=== PATIENT | male | born 1950 | race Caucasian/White ===

== ENCOUNTER 2018-11-01 10:15 | Outpatient (RCR) | payer OTHER, SELFPAY ==
--- NOTE | 2018-08-03 15:57 | PT.OIE ---
Current Diagnoses Other intervertebral disc displacement, lumbar region (08/03/18) Lumbago with sciatica, left side (08/03/18) Difficulty in walking, not elsewhere classified (08/03/18) Weakness (08/03/18) Provider Visit Care Team Role Provider Type AGUILA Zaldivar Attending Provider Non-Staff Primary Care Provider Specialty: Medical Address: [address] [place] [address], [address], [place], [address] Email: Physical Therapy Initial Evaluation PT-OP-A Visit Information Start: 08/03/18 08:10 Freq: Status: Active Protocol: Document 08/03/18 11:16 [facility]AK (Rec: 08/03/18 15:56 [facility]AK [id number]) Out-Patient Physical Therapy Visit Information Visit Information Visit Type Initial Evaluation Visit Start Time 11:16 Visit Stop Time 11:56 Total Visit Minutes 40 Visit Number 1 Number of WAREHOUSE CONSULTANT Visits 0 Evaluation Information Evaluation Date 08/03/18 Precautions Precautions cardiac PT-OP-B Current Condition Start: 08/03/18 08:10 Freq: Status: Active Protocol: Document 08/03/18 11:16 SAK (Rec: 08/03/18 11:58 [facility]AK [id number]) Current Condition History of Current Condition Onset Date 3 months Current Complaints LBP with radicular symptoms renato left greater than right History of Current Condition Reports function-limiting, worsening burning pain into left hip and left leg and numbness bilateral feet. Has fallen due to left leg giving way. Prior PT after all surgeries, but pain persists, worst in left leg. Now referred for aquatic PT. Prior Treatments and Tests October 2016 reattached all quad muscles back to right knee.(fell due to back pain, states a TKA has been recommended). History right LE cellulitis 05/11. January 2017 multilevel lumbar decompression L2-3, L3-4, and L4-5 stenosis 2018 tore rotator cuff left had surgical repair Treatment Goals Patient/Caregiver Goals Decrease pain, improve activity tolerance Prior Functional Status Baseline Function- ADL's Independent Baseline Function- Mobility Independent Baseline Function- Gait indep, no gait, Personal Factors Other Personal Factors That May Effect obesity Therapy/Recovery Cardiac history with angina, HTN PT-OP-C Subjective Start: 08/03/18 08:10 Freq: Status: Active Protocol: Document 08/03/18 11:16 [facility] (Rec: 08/03/18 15:56 [facility] [id number]) Patient Questionnaires Oswestry Low Back Index Oswestry Score 57 Oswestry Impairment 40 to 59% Impaired (Score 40- 59) OP-PT Pain Assessment Pain Assessment Grid Paper Pain Assessment Grid Completed Yes Location lumbar spine, left hip, lateral left LE Intensity 7 Scale Used Numeric (1 - 10) Description Aching Burning Pressure Sharp Spasm PT-OP-G Mobility & Gait Start: 08/03/18 08:10 Freq: Status: Active Protocol: Document 08/03/18 11:16 [facility] (Rec: 08/03/18 15:56 [facility] [id number]) OP Mobility Evaluation Transfers Sit to Stand painful Car Transfers painful Floor Transfers painful Functional Movements Lifting and Carrying painful Squats painful Running Assessment unable OP Gait Assessment Gait Gait Assistance Required: Independent Assistive Devices Assistive Device None Gait Deviations General Gait Pattern Antalgic Factors Limiting Gait Function Factors Limiting Gait Function Decreased Sensation Limited Range of Motion Pain PT-OP-H Neuro Start: 08/03/18 08:10 Freq: Status: Active Protocol: Document 08/03/18 11:16 [facility] (Rec: 08/03/18 15:56 [facility] [id number]) Sensation Evaluation Gross Sensation Gross Sensation Left LE Impaired Sensation Description Paresthesia Dermatome Impairments L4 L5 S1 Deep Tendon Reflex & Clonus Assessment Deep Tendon Reflex Bilateral Achilles Deep Tendon Reflex 0 Absent Bilateral Patellar Deep Tendon Reflex 0 Absent PT-OP-J Posture/Palpation/Skin Start: 08/03/18 08:10 Freq: Status: Active Protocol: Document 08/03/18 11:16 [facility] (Rec: 08/03/18 15:56 [facility] [id number]) Posture Evaluation Comments Posture Comments forward head, increased thoracic kyphosis and lumbar lordosis. Palpation Assessment Location piriformis Palpation Location bilateral Palpation Findings Soft Tissue Tightness Tenderness PT-OP-K Range of Motion Start: 08/03/18 08:10 Freq: Status: Active Protocol: Document 08/03/18 11:16 [facility] (Rec: 08/03/18 15:37 [facility] [id number]) Lumbar Spine Range of Motion Lumbar Spine Active Testing Position Standing Flexion 30 Extension 20 Lateral Flexion Left 30 Lateral Flexion Right 30 ROM Limitations Soft Tissue Tightness Pain Hip Goniometric Range of Motion Hip Measured in Degrees Left Testing Position Supine Flexion w/Knee Flexed 100 Straight Leg Raise 50 Extension 0 Abduction 25 Internal Rotation 10 External Rotation 40 Right Testing Position Supine Flexion w/Knee Flexed 100 Straight Leg Raise 45 Extension 0 Abduction 30 Internal Rotation 20 External Rotation 45 Hip ROM Limitations Hip ROM Limitations Soft Tissue Tightness Pain Knee Goniometric Range of Motion Knee Measured in Degrees Left Knee ROM WFL Yes Right Knee ROM WFL No Patient Position Supine Flexion Active (degrees) 95 Extension Active (degrees) 8 Extension Passive (degrees) 0 Ankle and Foot Goniometric Range of Motion Ankle and Foot Measured in Degrees renato Dorsiflexion with Knee Flexed 5 Dorsiflexion with Knee Extended 0 Plantarflexion 40 Ankle and Foot ROM Limitations ROM Limitations Soft Tissue Tightness PT-OP-L Special Tests Start: 08/03/18 08:10 Freq: Status: Active Protocol: Document 08/03/18 11:16 [facility] (Rec: 08/03/18 15:56 [facility] [id number]) Special Tests Lumbar Spine Special Tests Straight Leg Raise Test Results positive left PT-OP-M Strength Start: 08/03/18 08:10 Freq: Status: Active Protocol: Document 08/03/18 11:16 [facility] (Rec: 08/03/18 15:37 [facility] [id number]) Trunk Strength Trunk Manual Muscle Testing Flexion 3+ Fair+ Extension 3+ Fair+ Core Stabilization poor Hip Strength Hip Manual Muscle Testing Left Flexion (L2) 4- Good- Extension (S1) 3- Fair- Abduction 4- Good- Adduction 4- Good- External Rotation 3+ Fair+ Internal Rotation 4- Good- Right Flexion (L2) 4 Good Extension (S1) 3- Fair- Abduction 4 Good Adduction 4 Good External Rotation 4- Good- Internal Rotation 4- Good- Knee Strength Knee Manual Muscle Testing Left Flexion (S2) 4 Good Extension (L3) 4 Good Right Flexion (S2) 4 Good Extension (L3) 4 Good Ankle/Foot Strength Ankle and Foot Manual Muscle Testing Left Dorsiflexion (L4) 4+ Good+ Plantarflexion (S1) 4+ Good+ Right Dorsiflexion (L4) 4+ Good+ Plantarflexion (S1) 4+ Good+ Toe Strength Toe Manual Muscle Testing Left Great Toe Flexion 4- Good- Extension 4- Good- Right Great Toe Flexion 4+ Good+ Extension 4+ Good+ PT-OP-T Assessment and Plan Start: 08/03/18 08:10 Freq: Status: Active Protocol: Document 08/03/18 11:16 [facility] (Rec: 08/03/18 15:56 [facility] [id number]) Physical Therapy Assessment Rehab Potential Rehabilitation Potential Good Evaluation Complexity Number of Personal Factors/Comorbidities 3 or More Number of Body Systems Impaired 4 or More Clinical Presentation at Evaluation Evolving Impairments Impairments Activity Tolerance Gait Pain Strength Goals knowledge deficit Impairment no aquatic exercise program Short Term Goal (STG) Instruct patient in aquatic ex program; patient able to tolerate 45 min aquatic exercise without increase in pain STG Duration 09/14/18 Care Home Goal (LTG) Patient independent with aquatic exercise program for long-term pain management and fitness LTG Duration 11/01/18 Activity tolerance Impairment Oswestry disability index score 57% Short Term Goal (STG) Decrease Oswestry score to no greater than 45% STG Duration 09/14/18 Cargo Operations Agent Goal (LTG) Decrease Oswestry score to no greater than 30% LTG Duration 11/01/18 antalgic gait Impairment antalgic gait Short Term Goal (STG) Patient to demonstrate 50% decrease in limp STG Duration 09/14/18 Cargo Operations Agent Goal (LTG) Patient able to ambulate without significant limp LTG Duration 11/01/18 weakness Impairment decrease strength in trunk and LE's Short Term Goal (STG) increase strength by 1/2 grade throughout STG Duration 09/14/18 Cargo Operations Agent Goal (LTG) Increase strength to at least 4+/5 throughout pain Impairment pain lumbar spine, LE's left greater than right Short Term Goal (STG) decrease pain by 25% STG Duration 09/14/18 Cargo Operations Agent Goal (LTG) Decrease pain by at least 50% LTG Duration 11/01/18 Assessment Summary Assessment Patient presents with function -limiting pain and radicular symptoms in his lumbar spine and LE's left greater than right with signs and symptoms consistent with nerve root involvement. Patient has not done well with traditional PT, is now referred for aquatic PT. He has muscle imbalances of weakness and decreased flexibility throughout his trunk and LE's which are contributory. Obesity contributory as well. Feel aquatic PT would be very beneficial for this patient to allow him to work and strength, flexibility, core stabilization in bouyancy- supported environment for decreased joint compression and stress, and increased ease of movement. Precaution is cardiac history; will monitor and progress activity gradually. Physical Therapy Plan Frequency and Duration Frequency of Treatment 2x/Week Duration of Treatment 3 months Plan of Care Start Date 08/03/18 Plan of Care End Date 11/01/18 Therapeutic Interventions Therapeutic Interventions Aquatic Therapy Patient/Caregiver Education Next Visit Focus/Plan Next Note Type Treatment Note Next Visit Plan Initiate aquatic therapy
--- NOTE | 2018-08-28 14:53 | PT.OTN ---
Current Diagnoses Other intervertebral disc displacement, lumbar region (08/28/18) Physical Therapy Treatment Note PT-OP-A Visit Information Start: 08/03/18 08:10 Freq: Status: Active Protocol: Document 08/28/18 10:15 [facility] (Rec: 08/28/18 14:53 [facility] [id number]) Out-Patient Physical Therapy Visit Information Visit Information Visit Type Aquatic Treatment Note Visit Start Time 10:15 Visit Stop Time 11:00 Total Visit Minutes 45 Visit Number 2 Number of DEGREE CLERK Visits 0 Evaluation Information Evaluation Date 08/03/18 Precautions Precautions cardiac PT-OP-B Current Condition Start: 08/03/18 08:10 Freq: Status: Active Protocol: Document 08/03/18 11:16 [facility] (Rec: 08/03/18 11:58 [facility]AK [id number]) Current Condition History of Current Condition Onset Date 3 months Current Complaints LBP with radicular symptoms renato left greater than right History of Current Condition Reports function-limiting, worsening burning pain into left hip and left leg and numbness bilateral feet. Has fallen due to left leg giving way. Prior PT after all surgeries, but pain persists, worst in left leg. Now referred for aquatic PT. Prior Treatments and Tests October 2016 reattached all quad muscles back to right knee.(fell due to back pain, states a TKA has been recommended). History right LE cellulitis 05/11. January 2017 multilevel lumbar decompression L2-3, L3-4, and L4-5 stenosis 2018 tore rotator cuff left had surgical repair Treatment Goals Patient/Caregiver Goals Decrease pain, improve activity tolerance Prior Functional Status Baseline Function- ADL's Independent Baseline Function- Mobility Independent Baseline Function- Gait indep, no gait, Personal Factors Other Personal Factors That May Effect obesity Therapy/Recovery Cardiac history with angina, HTN PT-OP-C Subjective Start: 08/03/18 08:10 Freq: Status: Active Protocol: Document 08/28/18 10:15 [facility] (Rec: 08/28/18 14:53 [facility] [id number]) OP-PT Subjective Patient Comments Patient Comments Glad to be starting aquatic PT today. PT-OP-G Mobility & Gait Start: 08/03/18 08:10 Freq: Status: Active Protocol: Document 08/03/18 11:16 [facility] (Rec: 08/03/18 15:56 [facility] [id number]) OP Mobility Evaluation Transfers Sit to Stand painful Car Transfers painful Floor Transfers painful Functional Movements Lifting and Carrying painful Squats painful Running Assessment unable OP Gait Assessment Gait Gait Assistance Required: Independent Assistive Devices Assistive Device None Gait Deviations General Gait Pattern Antalgic Factors Limiting Gait Function Factors Limiting Gait Function Decreased Sensation Limited Range of Motion Pain PT-OP-H Neuro Start: 08/03/18 08:10 Freq: Status: Active Protocol: Document 08/03/18 11:16 [facility] (Rec: 08/03/18 15:56 [facility] [id number]) Sensation Evaluation Gross Sensation Gross Sensation Left LE Impaired Sensation Description Paresthesia Dermatome Impairments L4 L5 S1 Deep Tendon Reflex & Clonus Assessment Deep Tendon Reflex Bilateral Achilles Deep Tendon Reflex 0 Absent Bilateral Patellar Deep Tendon Reflex 0 Absent PT-OP-J Posture/Palpation/Skin Start: 08/03/18 08:10 Freq: Status: Active Protocol: Document 08/03/18 11:16 [facility] (Rec: 08/03/18 15:56 [facility] [id number]) Posture Evaluation Comments Posture Comments forward head, increased thoracic kyphosis and lumbar lordosis. Palpation Assessment Location piriformis Palpation Location bilateral Palpation Findings Soft Tissue Tightness Tenderness PT-OP-K Range of Motion Start: 08/03/18 08:10 Freq: Status: Active Protocol: Document 08/03/18 11:16 [facility] (Rec: 08/03/18 15:37 [facility] [id number]) Lumbar Spine Range of Motion Lumbar Spine Active Testing Position Standing Flexion 30 Extension 20 Lateral Flexion Left 30 Lateral Flexion Right 30 ROM Limitations Soft Tissue Tightness Pain Hip Goniometric Range of Motion Hip Measured in Degrees Left Testing Position Supine Flexion w/Knee Flexed 100 Straight Leg Raise 50 Extension 0 Abduction 25 Internal Rotation 10 External Rotation 40 Right Testing Position Supine Flexion w/Knee Flexed 100 Straight Leg Raise 45 Extension 0 Abduction 30 Internal Rotation 20 External Rotation 45 Hip ROM Limitations Hip ROM Limitations Soft Tissue Tightness Pain Knee Goniometric Range of Motion Knee Measured in Degrees Left Knee ROM WFL Yes Right Knee ROM WFL No Patient Position Supine Flexion Active (degrees) 95 Extension Active (degrees) 8 Extension Passive (degrees) 0 Ankle and Foot Goniometric Range of Motion Ankle and Foot Measured in Degrees renato Dorsiflexion with Knee Flexed 5 Dorsiflexion with Knee Extended 0 Plantarflexion 40 Ankle and Foot ROM Limitations ROM Limitations Soft Tissue Tightness PT-OP-L Special Tests Start: 08/03/18 08:10 Freq: Status: Active Protocol: Document 08/03/18 11:16 [facility] (Rec: 08/03/18 15:56 [facility] [id number]) Special Tests Lumbar Spine Special Tests Straight Leg Raise Test Results positive left PT-OP-M Strength Start: 08/03/18 08:10 Freq: Status: Active Protocol: Document 08/03/18 11:16 [facility] (Rec: 08/03/18 15:37 [facility] [id number]) Trunk Strength Trunk Manual Muscle Testing Flexion 3+ Fair+ Extension 3+ Fair+ Core Stabilization poor Hip Strength Hip Manual Muscle Testing Left Flexion (L2) 4- Good- Extension (S1) 3- Fair- Abduction 4- Good- Adduction 4- Good- External Rotation 3+ Fair+ Internal Rotation 4- Good- Right Flexion (L2) 4 Good Extension (S1) 3- Fair- Abduction 4 Good Adduction 4 Good External Rotation 4- Good- Internal Rotation 4- Good- Knee Strength Knee Manual Muscle Testing Left Flexion (S2) 4 Good Extension (L3) 4 Good Right Flexion (S2) 4 Good Extension (L3) 4 Good Ankle/Foot Strength Ankle and Foot Manual Muscle Testing Left Dorsiflexion (L4) 4+ Good+ Plantarflexion (S1) 4+ Good+ Right Dorsiflexion (L4) 4+ Good+ Plantarflexion (S1) 4+ Good+ Toe Strength Toe Manual Muscle Testing Left Great Toe Flexion 4- Good- Extension 4- Good- Right Great Toe Flexion 4+ Good+ Extension 4+ Good+ PT-OP-S Aquatic Treatment Start: 08/03/18 08:10 Freq: Status: Active Protocol: Document 08/28/18 10:15 [facility] (Rec: 08/28/18 14:53 [facility] [id number]) Aquatics Treatment Pool Entry/Exit Pool Entry/Exit Method Stairs Assistance Verbal Cues Water Walking september, straight leg september Water Level Chest Level Level of Assistance Standby Assistance Verbal Cues fwd,bck,side Water Level Chest Level Level of Assistance Standby Assistance Verbal Cues Lower Extremity Exercises squats Water Level Waist Level Reps/Duration 10x hip flex/ext, ab/ad Body Position Standing Water Level Chest Level Reps/Duration 10x ROM, 10x short/quick Lower Extremity Stretches piriformis, hip ER Body Position chair position against wall hamstring, ITB, add Body Position Standing Water Level Chest Level Equipment Small Noodle Upper Extremity Exercises hor ab/ad, flex/ext Water Level Chest Level Reps/Duration 10x renato, 10x unil Comments DLS emphasis Spinal Exercises deep water hang Body Position Standing Water Level [place] Reps/Duration 2 min [place] Activities [place] Activities Bicycle Running Equipment large noodle Duration 12 min PT-OP-T Assessment and Plan Start: 08/03/18 08:10 Freq: Status: Active Protocol: Document 08/28/18 10:15 [facility] (Rec: 08/28/18 14:53 [facility] [id number]) Physical Therapy Assessment Goals knowledge deficit Impairment no aquatic exercise program Short Term Goal (STG) Instruct patient in aquatic ex program; patient able to tolerate 45 min aquatic exercise without increase in pain STG Duration 09/14/18 Shelter Goal (LTG) Patient independent with aquatic exercise program for long-term pain management and fitness LTG Duration 11/01/18 Activity tolerance Impairment Oswestry disability index score 57% Short Term Goal (STG) Decrease Oswestry score to no greater than 45% STG Duration 09/14/18 Stitch Welder Goal (LTG) Decrease Oswestry score to no greater than 30% LTG Duration 11/01/18 antalgic gait Impairment antalgic gait Short Term Goal (STG) Patient to demonstrate 50% decrease in limp STG Duration 09/14/18 Stitch Welder Goal (LTG) Patient able to ambulate without significant limp LTG Duration 11/01/18 weakness Impairment decrease strength in trunk and LE's Short Term Goal (STG) increase strength by 1/2 grade throughout STG Duration 09/14/18 Stitch Welder Goal (LTG) Increase strength to at least 4+/5 throughout pain Impairment pain lumbar spine, LE's left greater than right Short Term Goal (STG) decrease pain by 25% STG Duration 09/14/18 Stitch Welder Goal (LTG) Decrease pain by at least 50% LTG Duration 11/01/18 Assessment Summary Assessment Patient required mod cues for postural alignment and core stabilization with all ex Physical Therapy Plan Frequency and Duration Frequency of Treatment 2x/Week Duration of Treatment 3 months Plan of Care Start Date 08/03/18 Plan of Care End Date 11/01/18 Therapeutic Interventions Therapeutic Interventions Aquatic Therapy Patient/Caregiver Education Next Visit Focus/Plan Next Note Type Treatment Note Next Visit Plan Continue aquatic PT per POC
--- NOTE | 2018-09-04 14:19 | PT.OTN ---
Current Diagnoses Other intervertebral disc displacement, lumbar region (08/28/18) Physical Therapy Treatment Note PT-OP-A Visit Information Start: 08/03/18 08:10 Freq: Status: Active Protocol: Document 09/04/18 11:45 LJ (Rec: 09/04/18 14:19 LJ [email or web address]) Out-Patient Physical Therapy Visit Information Visit Information Visit Type Aquatic Treatment Note Visit Start Time 11:45 Visit Stop Time 12:33 Total Visit Minutes 48 Visit Number 3 Number of COMMERCIAL FISHERMAN Visits 1 Precautions Precautions cardiac PT-OP-B Current Condition Start: 08/03/18 08:10 Freq: Status: Active Protocol: Document 08/03/18 11:16 SAK (Rec: 08/03/18 11:58 SAK [id number]) Current Condition History of Current Condition Onset Date 3 months Current Complaints LBP with radicular symptoms renato left greater than right History of Current Condition Reports function-limiting, worsening burning pain into left hip and left leg and numbness bilateral feet. Has fallen due to left leg giving way. Prior PT after all surgeries, but pain persists, worst in left leg. Now referred for aquatic PT. Prior Treatments and Tests October 2016 reattached all quad muscles back to right knee.(fell due to back pain, states a TKA has been recommended). History right LE cellulitis 05/11. January 2017 multilevel lumbar decompression L2-3, L3-4, and L4-5 stenosis 2018 tore rotator cuff left had surgical repair Treatment Goals Patient/Caregiver Goals Decrease pain, improve activity tolerance Prior Functional Status Baseline Function- ADL's Independent Baseline Function- Mobility Independent Baseline Function- Gait indep, no gait, Personal Factors Other Personal Factors That May Effect obesity Therapy/Recovery Cardiac history with angina, HTN PT-OP-C Subjective Start: 08/03/18 08:10 Freq: Status: Active Protocol: Document 09/04/18 11:45 LJ (Rec: 09/04/18 14:19 LJ [email or web address]) OP-PT Subjective Patient Comments Patient Comments Pt arrived 5 min early and began vigorous marching exercise on his own. States his LEs feel weak today. Not certain why. Can't tell if it' s muscle soreness or fatigue. PT-OP-G Mobility & Gait Start: 08/03/18 08:10 Freq: Status: Active Protocol: Document 08/03/18 11:16 SAK (Rec: 08/03/18 15:56 [facility] [id number]) OP Mobility Evaluation Transfers Sit to Stand painful Car Transfers painful Floor Transfers painful Functional Movements Lifting and Carrying painful Squats painful Running Assessment unable OP Gait Assessment Gait Gait Assistance Required: Independent Assistive Devices Assistive Device None Gait Deviations General Gait Pattern Antalgic Factors Limiting Gait Function Factors Limiting Gait Function Decreased Sensation Limited Range of Motion Pain PT-OP-H Neuro Start: 08/03/18 08:10 Freq: Status: Active Protocol: Document 08/03/18 11:16 [facility] (Rec: 08/03/18 15:56 [facility] [id number]) Sensation Evaluation Gross Sensation Gross Sensation Left LE Impaired Sensation Description Paresthesia Dermatome Impairments L4 L5 S1 Deep Tendon Reflex & Clonus Assessment Deep Tendon Reflex Bilateral Achilles Deep Tendon Reflex 0 Absent Bilateral Patellar Deep Tendon Reflex 0 Absent PT-OP-J Posture/Palpation/Skin Start: 08/03/18 08:10 Freq: Status: Active Protocol: Document 08/03/18 11:16 [facility] (Rec: 08/03/18 15:56 [facility] [id number]) Posture Evaluation Comments Posture Comments forward head, increased thoracic kyphosis and lumbar lordosis. Palpation Assessment Location piriformis Palpation Location bilateral Palpation Findings Soft Tissue Tightness Tenderness PT-OP-K Range of Motion Start: 08/03/18 08:10 Freq: Status: Active Protocol: Document 08/03/18 11:16 [facility] (Rec: 08/03/18 15:37 [facility] [id number]) Lumbar Spine Range of Motion Lumbar Spine Active Testing Position Standing Flexion 30 Extension 20 Lateral Flexion Left 30 Lateral Flexion Right 30 ROM Limitations Soft Tissue Tightness Pain Hip Goniometric Range of Motion Hip Measured in Degrees Left Testing Position Supine Flexion w/Knee Flexed 100 Straight Leg Raise 50 Extension 0 Abduction 25 Internal Rotation 10 External Rotation 40 Right Testing Position Supine Flexion w/Knee Flexed 100 Straight Leg Raise 45 Extension 0 Abduction 30 Internal Rotation 20 External Rotation 45 Hip ROM Limitations Hip ROM Limitations Soft Tissue Tightness Pain Knee Goniometric Range of Motion Knee Measured in Degrees Left Knee ROM WFL Yes Right Knee ROM WFL No Patient Position Supine Flexion Active (degrees) 95 Extension Active (degrees) 8 Extension Passive (degrees) 0 Ankle and Foot Goniometric Range of Motion Ankle and Foot Measured in Degrees renato Dorsiflexion with Knee Flexed 5 Dorsiflexion with Knee Extended 0 Plantarflexion 40 Ankle and Foot ROM Limitations ROM Limitations Soft Tissue Tightness PT-OP-L Special Tests Start: 08/03/18 08:10 Freq: Status: Active Protocol: Document 08/03/18 11:16 SAK (Rec: 08/03/18 15:56 SAK [id number]) Special Tests Lumbar Spine Special Tests Straight Leg Raise Test Results positive left PT-OP-M Strength Start: 08/03/18 08:10 Freq: Status: Active Protocol: Document 08/03/18 11:16 SAK (Rec: 08/03/18 15:37 SAK [id number]) Trunk Strength Trunk Manual Muscle Testing Flexion 3+ Fair+ Extension 3+ Fair+ Core Stabilization poor Hip Strength Hip Manual Muscle Testing Left Flexion (L2) 4- Good- Extension (S1) 3- Fair- Abduction 4- Good- Adduction 4- Good- External Rotation 3+ Fair+ Internal Rotation 4- Good- Right Flexion (L2) 4 Good Extension (S1) 3- Fair- Abduction 4 Good Adduction 4 Good External Rotation 4- Good- Internal Rotation 4- Good- Knee Strength Knee Manual Muscle Testing Left Flexion (S2) 4 Good Extension (L3) 4 Good Right Flexion (S2) 4 Good Extension (L3) 4 Good Ankle/Foot Strength Ankle and Foot Manual Muscle Testing Left Dorsiflexion (L4) 4+ Good+ Plantarflexion (S1) 4+ Good+ Right Dorsiflexion (L4) 4+ Good+ Plantarflexion (S1) 4+ Good+ Toe Strength Toe Manual Muscle Testing Left Great Toe Flexion 4- Good- Extension 4- Good- Right Great Toe Flexion 4+ Good+ Extension 4+ Good+ PT-OP-S Aquatic Treatment Start: 08/03/18 08:10 Freq: Status: Active Protocol: Document 09/04/18 11:45 LJ (Rec: 09/04/18 14:19 LJ [email or web address]) Aquatics Treatment Pool Entry/Exit Pool Entry/Exit Method Stairs Assistance Verbal Cues Water Walking stairs all directions Water Level Waist Level Level of Assistance Standby Assistance Verbal Cues Comments 6 boxes lunge walking Water Level Waist Level Level of Assistance Standby Assistance Verbal Cues march, straight leg september Water Level Chest Level Level of Assistance Standby Assistance Verbal Cues fwd,bck,side Water Level Chest Level Level of Assistance Standby Assistance Verbal Cues Lower Extremity Exercises CC,CCW Body Position Standing Water Level Chest Level Reps/Duration 2 x 10 circles bilat Comments cues for core stab squats Water Level Waist Level Reps/Duration 10x Comments VC for core stab and muscle sequencing hip flex/ext, ab/ad Body Position Standing Water Level Chest Level Reps/Duration 15x ROM x 2 sets Lower Extremity Stretches HC Reps/Duration standing at wall hamstring, ITB, add Body Position Standing Water Level Chest Level Equipment Small Noodle Upper Extremity Exercises lat pull down, IR/ER Body Position Standing Water Level Chest Level Equipment UE paddles Comments cues for core stab hor ab/ad, flex/ext Water Level Chest Level Equipment UE paddles Reps/Duration 10x renato, Comments DLS emphasis Upper Extremity Stretches walking w/paddles Reps/Duration 30 meters Comments cues for shoulder stab [place] Activities [place] Activities Bicycle Running Equipment XL belt Duration 10 min PT-OP-T Assessment and Plan Start: 08/03/18 08:10 Freq: Status: Active Protocol: Document 09/04/18 11:45 JAMIN (Rec: 09/04/18 14:19 JAMIN [email or web address]) Physical Therapy Assessment Rehab Potential Rehabilitation Potential Good Evaluation Complexity Number of Personal Factors/Comorbidities 3 or More Number of Body Systems Impaired 4 or More Clinical Presentation at Evaluation Evolving Impairments Impairments Activity Tolerance Gait Pain Strength Goals knowledge deficit Impairment no aquatic exercise program Short Term Goal (STG) Instruct patient in aquatic ex program; patient able to tolerate 45 min aquatic exercise without increase in pain STG Duration 09/14/18 Fpc Goal (LTG) Patient independent with aquatic exercise program for long-term pain management and fitness LTG Duration 11/01/18 Activity tolerance Impairment Oswestry disability index score 57% Short Term Goal (STG) Decrease Oswestry score to no greater than 45% STG Duration 09/14/18 Fpc Goal (LTG) Decrease Oswestry score to no greater than 30% LTG Duration 11/01/18 antalgic gait Impairment antalgic gait Short Term Goal (STG) Patient to demonstrate 50% decrease in limp STG Duration 09/14/18 Boil Off Worker Goal (LTG) Patient able to ambulate without significant limp LTG Duration 11/01/18 weakness Impairment decrease strength in trunk and LE's Short Term Goal (STG) increase strength by 1/2 grade throughout STG Duration 09/14/18 Fpc Goal (LTG) Increase strength to at least 4+/5 throughout pain Impairment pain lumbar spine, LE's left greater than right Short Term Goal (STG) decrease pain by 25% STG Duration 09/14/18 Fpc Goal (LTG) Decrease pain by at least 50% LTG Duration 11/01/18 Assessment Summary Assessment Pt requires cueing for core stabilization and postural alignment for most exercises. Cueing for glute activation helpful in stair climbing. Pt requires cueing for coordination of LE and UE exercises and tends to lose form easily. Pt with increased respiratory rate with low intensity deep water exercises . Pt slow climbing stairs when finished with aquatic exercise. Physical Therapy Plan Frequency and Duration Frequency of Treatment 2x/Week Duration of Treatment 3 months Plan of Care Start Date 08/03/18 Plan of Care End Date 11/01/18 Therapeutic Interventions Therapeutic Interventions Aquatic Therapy Patient/Caregiver Education Next Visit Focus/Plan Next Note Type Treatment Note Next Visit Plan Continue aquatic PT per POC. Incorporate core muscle activation prior to LE or UE exercises.
--- NOTE | 2018-09-08 15:34 | PT.OTN ---
Current Diagnoses Other intervertebral disc displacement, lumbar region (09/04/18) Physical Therapy Treatment Note PT-OP-A Visit Information Start: 08/03/18 08:10 Freq: Status: Active Protocol: Document 09/08/18 11:45 LJ (Rec: 09/08/18 15:34 LJ [email or web address]) Out-Patient Physical Therapy Visit Information Visit Information Visit Type Aquatic Treatment Note Visit Start Time 11:45 Visit Stop Time 12:30 Total Visit Minutes 45 Visit Number 4 Number of RAINBOW TROUT FARM MANAGER Visits 2 Evaluation Information Evaluation Date 08/03/18 Precautions Precautions cardiac PT-OP-B Current Condition Start: 08/03/18 08:10 Freq: Status: Active Protocol: Document 08/03/18 11:16 SAK (Rec: 08/03/18 11:58 SAK [id number]) Current Condition History of Current Condition Onset Date 3 months Current Complaints LBP with radicular symptoms renato left greater than right History of Current Condition Reports function-limiting, worsening burning pain into left hip and left leg and numbness bilateral feet. Has fallen due to left leg giving way. Prior PT after all surgeries, but pain persists, worst in left leg. Now referred for aquatic PT. Prior Treatments and Tests October 2016 reattached all quad muscles back to right knee.(fell due to back pain, states a TKA has been recommended). History right LE cellulitis 05/11. January 2017 multilevel lumbar decompression L2-3, L3-4, and L4-5 stenosis 2018 tore rotator cuff left had surgical repair Treatment Goals Patient/Caregiver Goals Decrease pain, improve activity tolerance Prior Functional Status Baseline Function- ADL's Independent Baseline Function- Mobility Independent Baseline Function- Gait indep, no gait, Personal Factors Other Personal Factors That May Effect obesity Therapy/Recovery Cardiac history with angina, HTN PT-OP-C Subjective Start: 08/03/18 08:10 Freq: Status: Active Protocol: Document 09/08/18 11:45 LJ (Rec: 09/08/18 15:34 LJ [email or web address]) OP-PT Subjective Patient Comments Patient Comments Pt arrived 10 min early and began water walking. No new complaints other than HS and gaastrocs feeling very tight. PT-OP-G Mobility & Gait Start: 08/03/18 08:10 Freq: Status: Active Protocol: Document 08/03/18 11:16 SAK (Rec: 08/03/18 15:56 SAK [id number]) OP Mobility Evaluation Transfers Sit to Stand painful Car Transfers painful Floor Transfers painful Functional Movements Lifting and Carrying painful Squats painful Running Assessment unable OP Gait Assessment Gait Gait Assistance Required: Independent Assistive Devices Assistive Device None Gait Deviations General Gait Pattern Antalgic Factors Limiting Gait Function Factors Limiting Gait Function Decreased Sensation Limited Range of Motion Pain PT-OP-H Neuro Start: 08/03/18 08:10 Freq: Status: Active Protocol: Document 08/03/18 11:16 SAK (Rec: 08/03/18 15:56 [facility] [id number]) Sensation Evaluation Gross Sensation Gross Sensation Left LE Impaired Sensation Description Paresthesia Dermatome Impairments L4 L5 S1 Deep Tendon Reflex & Clonus Assessment Deep Tendon Reflex Bilateral Achilles Deep Tendon Reflex 0 Absent Bilateral Patellar Deep Tendon Reflex 0 Absent PT-OP-J Posture/Palpation/Skin Start: 08/03/18 08:10 Freq: Status: Active Protocol: Document 08/03/18 11:16 [facility] (Rec: 08/03/18 15:56 [facility] [id number]) Posture Evaluation Comments Posture Comments forward head, increased thoracic kyphosis and lumbar lordosis. Palpation Assessment Location piriformis Palpation Location bilateral Palpation Findings Soft Tissue Tightness Tenderness PT-OP-K Range of Motion Start: 08/03/18 08:10 Freq: Status: Active Protocol: Document 08/03/18 11:16 [facility] (Rec: 08/03/18 15:37 [facility] [id number]) Lumbar Spine Range of Motion Lumbar Spine Active Testing Position Standing Flexion 30 Extension 20 Lateral Flexion Left 30 Lateral Flexion Right 30 ROM Limitations Soft Tissue Tightness Pain Hip Goniometric Range of Motion Hip Measured in Degrees Left Testing Position Supine Flexion w/Knee Flexed 100 Straight Leg Raise 50 Extension 0 Abduction 25 Internal Rotation 10 External Rotation 40 Right Testing Position Supine Flexion w/Knee Flexed 100 Straight Leg Raise 45 Extension 0 Abduction 30 Internal Rotation 20 External Rotation 45 Hip ROM Limitations Hip ROM Limitations Soft Tissue Tightness Pain Knee Goniometric Range of Motion Knee Measured in Degrees Left Knee ROM WFL Yes Right Knee ROM WFL No Patient Position Supine Flexion Active (degrees) 95 Extension Active (degrees) 8 Extension Passive (degrees) 0 Ankle and Foot Goniometric Range of Motion Ankle and Foot Measured in Degrees renato Dorsiflexion with Knee Flexed 5 Dorsiflexion with Knee Extended 0 Plantarflexion 40 Ankle and Foot ROM Limitations ROM Limitations Soft Tissue Tightness PT-OP-L Special Tests Start: 08/03/18 08:10 Freq: Status: Active Protocol: Document 08/03/18 11:16 SAK (Rec: 08/03/18 15:56 SAK [id number]) Special Tests Lumbar Spine Special Tests Straight Leg Raise Test Results positive left PT-OP-M Strength Start: 08/03/18 08:10 Freq: Status: Active Protocol: Document 08/03/18 11:16 SAK (Rec: 08/03/18 15:37 SAK [id number]) Trunk Strength Trunk Manual Muscle Testing Flexion 3+ Fair+ Extension 3+ Fair+ Core Stabilization poor Hip Strength Hip Manual Muscle Testing Left Flexion (L2) 4- Good- Extension (S1) 3- Fair- Abduction 4- Good- Adduction 4- Good- External Rotation 3+ Fair+ Internal Rotation 4- Good- Right Flexion (L2) 4 Good Extension (S1) 3- Fair- Abduction 4 Good Adduction 4 Good External Rotation 4- Good- Internal Rotation 4- Good- Knee Strength Knee Manual Muscle Testing Left Flexion (S2) 4 Good Extension (L3) 4 Good Right Flexion (S2) 4 Good Extension (L3) 4 Good Ankle/Foot Strength Ankle and Foot Manual Muscle Testing Left Dorsiflexion (L4) 4+ Good+ Plantarflexion (S1) 4+ Good+ Right Dorsiflexion (L4) 4+ Good+ Plantarflexion (S1) 4+ Good+ Toe Strength Toe Manual Muscle Testing Left Great Toe Flexion 4- Good- Extension 4- Good- Right Great Toe Flexion 4+ Good+ Extension 4+ Good+ PT-OP-S Aquatic Treatment Start: 08/03/18 08:10 Freq: Status: Active Protocol: Document 09/08/18 11:45 LJ (Rec: 09/08/18 15:34 LJ [email or web address]) Aquatics Treatment Pool Entry/Exit Pool Entry/Exit Method Stairs Assistance Independent Water Walking stairs all directions Water Level Waist Level Level of Assistance Standby Assistance Verbal Cues Comments 6 boxes september, straight leg march Water Level Chest Level Level of Assistance Standby Assistance Verbal Cues fwd,bck,side Water Level Chest Level Level of Assistance Standby Assistance Verbal Cues Lower Extremity Exercises CC,CCW Body Position Standing Water Level Chest Level Reps/Duration 2 x 10 circles bilat, fast and slow; lg and sm Comments cues for core stab squats Water Level Waist Level Reps/Duration 10x Comments VC for core stab and muscle sequencing hip flex/ext, ab/ad Body Position Standing Water Level Chest Level Reps/Duration 15x ROM x 2 sets Lower Extremity Stretches HC Reps/Duration standing at wall piriformis, hip ER Body Position chair position against wall Upper Extremity Exercises hor ab/ad, flex/ext Water Level Chest Level Equipment UE paddles Reps/Duration 10x renato, Comments DLS emphasis Upper Extremity Stretches walking w/paddles Reps/Duration 30 meters Comments cues for shoulder stab Balance standing stabilization w/perturbations Body Position Standing Water Level Chest Level Reps/Duration 5 min Comments pt with difficulty in coordinating trunk mms [place] [employer] [place] [employer] Bicycle [place] Running Equipment XL belt Duration 15 Comments pendulum x 8 corner SLR x 10 PT-OP-T Assessment and Plan Start: 08/03/18 08:10 Freq: Status: Active Protocol: Document 09/08/18 11:45 LJ (Rec: 09/08/18 15:34 LJ [email or web address]) Physical Therapy Assessment Rehab Potential Rehabilitation Potential Good Evaluation Complexity Number of Personal Factors/Comorbidities 3 or More Number of Body Systems Impaired 4 or More Clinical Presentation at Evaluation Evolving Impairments Impairments Activity Tolerance Gait Pain Strength Goals knowledge deficit Impairment no aquatic exercise program Short Term Goal (STG) Instruct patient in aquatic ex program; patient able to tolerate 45 min aquatic exercise without increase in pain STG Duration 09/14/18 Mobile Device Engineer Goal (LTG) Patient independent with aquatic exercise program for long-term pain management and fitness LTG Duration 11/01/18 Activity tolerance Impairment Oswestry disability index score 57% Short Term Goal (STG) Decrease Oswestry score to no greater than 45% STG Duration 09/14/18 [facility] Goal (LTG) Decrease Oswestry score to no greater than 30% LTG Duration 11/01/18 antalgic gait Impairment antalgic gait Short Term Goal (STG) Patient to demonstrate 50% decrease in limp STG Duration 09/14/18 [facility]ci Goal (LTG) Patient able to ambulate without significant limp LTG Duration 11/01/18 weakness Impairment decrease strength in trunk and LE's Short Term Goal (STG) increase strength by 1/2 grade throughout STG Duration 09/14/18 Mobile Device Engineer Goal (LTG) Increase strength to at least 4+/5 throughout pain Impairment pain lumbar spine, LE's left greater than right Short Term Goal (STG) decrease pain by 25% STG Duration 09/14/18 [facility]ci Goal (LTG) Decrease pain by at least 50% LTG Duration 11/01/18 Assessment Summary Assessment Pt requires cueing for core stabilization and postural alignment for most exercises. Tends to lose coordination easily and moves on to another exercise without realizing it . Pt with increased respiratory rate with low intensity deep water exercises . Physical Therapy Plan Frequency and Duration Frequency of Treatment 2x/Week Duration of Treatment 3 months Plan of Care Start Date 08/03/18 Plan of Care End Date 11/01/18 Therapeutic Interventions Therapeutic Interventions Aquatic Therapy Patient/Caregiver Education Next Visit Focus/Plan Next Note Type Treatment Note Next Visit Plan Continue aquatic PT per POC. Incorporate core muscle activation prior to LE or UE exercises. Improve static and dynamic balance and LE coordination with addition of ankle weights for kinesthetic awareness.
--- NOTE | 2018-09-11 13:34 | PT.OTN ---
Current Diagnoses Other intervertebral disc displacement, lumbar region (09/08/18) Physical Therapy Treatment Note PT-OP-A Visit Information Start: 08/03/18 08:10 Freq: Status: Active Protocol: Document 09/11/18 10:15 CLB (Rec: 09/11/18 13:34 CLB [email or web address]) Out-Patient Physical Therapy Visit Information Visit Information Visit Type Aquatic Treatment Note Visit Start Time 10:15 Visit Stop Time 11:00 Total Visit Minutes 45 Visit Number 5 Number of PRESCHOOL EDUCATION DIRECTOR Visits 3 PT-OP-B Current Condition Start: 08/03/18 08:10 Freq: Status: Active Protocol: Document 08/03/18 11:16 SAK (Rec: 08/03/18 11:58 SAK [id number]) Current Condition History of Current Condition Onset Date 3 months Current Complaints LBP with radicular symptoms renato left greater than right History of Current Condition Reports function-limiting, worsening burning pain into left hip and left leg and numbness bilateral feet. Has fallen due to left leg giving way. Prior PT after all surgeries, but pain persists, worst in left leg. Now referred for aquatic PT. Prior Treatments and Tests October 2016 reattached all quad muscles back to right knee.(fell due to back pain, states a TKA has been recommended). History right LE cellulitis 05/11. January 2017 multilevel lumbar decompression L2-3, L3-4, and L4-5 stenosis 2018 tore rotator cuff left had surgical repair Treatment Goals Patient/Caregiver Goals Decrease pain, improve activity tolerance Prior Functional Status Baseline Function- ADL's Independent Baseline Function- Mobility Independent Baseline Function- Gait indep, no gait, Personal Factors Other Personal Factors That May Effect obesity Therapy/Recovery Cardiac history with angina, HTN PT-OP-C Subjective Start: 08/03/18 08:10 Freq: Status: Active Protocol: Document 09/11/18 10:15 CLB (Rec: 09/11/18 13:34 CLB [email or web address]) OP-PT Subjective Patient Comments Patient Comments Pt continues to state his HS are really tight. PT-OP-G Mobility & Gait Start: 08/03/18 08:10 Freq: Status: Active Protocol: Document 08/03/18 11:16 SAK (Rec: 08/03/18 15:56 SAK [id number]) OP Mobility Evaluation Transfers Sit to Stand painful Car Transfers painful Floor Transfers painful Functional Movements Lifting and Carrying painful Squats painful Running Assessment unable OP Gait Assessment Gait Gait Assistance Required: Independent Assistive Devices Assistive Device None Gait Deviations General Gait Pattern Antalgic Factors Limiting Gait Function Factors Limiting Gait Function Decreased Sensation Limited Range of Motion Pain PT-OP-H Neuro Start: 08/03/18 08:10 Freq: Status: Active Protocol: Document 08/03/18 11:16 [facility] (Rec: 08/03/18 15:56 [facility] [id number]) Sensation Evaluation Gross Sensation Gross Sensation Left LE Impaired Sensation Description Paresthesia Dermatome Impairments L4 L5 S1 Deep Tendon Reflex & Clonus Assessment Deep Tendon Reflex Bilateral Achilles Deep Tendon Reflex 0 Absent Bilateral Patellar Deep Tendon Reflex 0 Absent PT-OP-J Posture/Palpation/Skin Start: 08/03/18 08:10 Freq: Status: Active Protocol: Document 08/03/18 11:16 [facility] (Rec: 08/03/18 15:56 [facility] [id number]) Posture Evaluation Comments Posture Comments forward head, increased thoracic kyphosis and lumbar lordosis. Palpation Assessment Location piriformis Palpation Location bilateral Palpation Findings Soft Tissue Tightness Tenderness PT-OP-K Range of Motion Start: 08/03/18 08:10 Freq: Status: Active Protocol: Document 08/03/18 11:16 [facility] (Rec: 08/03/18 15:37 [facility] [id number]) Lumbar Spine Range of Motion Lumbar Spine Active Testing Position Standing Flexion 30 Extension 20 Lateral Flexion Left 30 Lateral Flexion Right 30 ROM Limitations Soft Tissue Tightness Pain Hip Goniometric Range of Motion Hip Measured in Degrees Left Testing Position Supine Flexion w/Knee Flexed 100 Straight Leg Raise 50 Extension 0 Abduction 25 Internal Rotation 10 External Rotation 40 Right Testing Position Supine Flexion w/Knee Flexed 100 Straight Leg Raise 45 Extension 0 Abduction 30 Internal Rotation 20 External Rotation 45 Hip ROM Limitations Hip ROM Limitations Soft Tissue Tightness Pain Knee Goniometric Range of Motion Knee Measured in Degrees Left Knee ROM WFL Yes Right Knee ROM WFL No Patient Position Supine Flexion Active (degrees) 95 Extension Active (degrees) 8 Extension Passive (degrees) 0 Ankle and Foot Goniometric Range of Motion Ankle and Foot Measured in Degrees renato Dorsiflexion with Knee Flexed 5 Dorsiflexion with Knee Extended 0 Plantarflexion 40 Ankle and Foot ROM Limitations ROM Limitations Soft Tissue Tightness PT-OP-L Special Tests Start: 08/03/18 08:10 Freq: Status: Active Protocol: Document 08/03/18 11:16 SAK (Rec: 08/03/18 15:56 SAK [id number]) Special Tests Lumbar Spine Special Tests Straight Leg Raise Test Results positive left PT-OP-M Strength Start: 08/03/18 08:10 Freq: Status: Active Protocol: Document 08/03/18 11:16 SAK (Rec: 08/03/18 15:37 SAK [id number]) Trunk Strength Trunk Manual Muscle Testing Flexion 3+ Fair+ Extension 3+ Fair+ Core Stabilization poor Hip Strength Hip Manual Muscle Testing Left Flexion (L2) 4- Good- Extension (S1) 3- Fair- Abduction 4- Good- Adduction 4- Good- External Rotation 3+ Fair+ Internal Rotation 4- Good- Right Flexion (L2) 4 Good Extension (S1) 3- Fair- Abduction 4 Good Adduction 4 Good External Rotation 4- Good- Internal Rotation 4- Good- Knee Strength Knee Manual Muscle Testing Left Flexion (S2) 4 Good Extension (L3) 4 Good Right Flexion (S2) 4 Good Extension (L3) 4 Good Ankle/Foot Strength Ankle and Foot Manual Muscle Testing Left Dorsiflexion (L4) 4+ Good+ Plantarflexion (S1) 4+ Good+ Right Dorsiflexion (L4) 4+ Good+ Plantarflexion (S1) 4+ Good+ Toe Strength Toe Manual Muscle Testing Left Great Toe Flexion 4- Good- Extension 4- Good- Right Great Toe Flexion 4+ Good+ Extension 4+ Good+ PT-OP-S Aquatic Treatment Start: 08/03/18 08:10 Freq: Status: Active Protocol: Document 09/11/18 10:15 CLB (Rec: 09/11/18 13:34 CLB [email or web address]) Aquatics Treatment Pool Entry/Exit Pool Entry/Exit Method Stairs Assistance Independent Water Walking lunge walking Water Level Waist Level Level of Assistance Standby Assistance Verbal Cues march, straight leg march Water Level Chest Level Level of Assistance Standby Assistance Verbal Cues fwd,bck,side Water Level Chest Level Level of Assistance Standby Assistance Verbal Cues Lower Extremity Exercises CC,CCW Body Position Standing Water Level Chest Level Reps/Duration 2 x 10 circles bilat, fast and slow; lg and sm Comments cues for core stab squats Water Level Waist Level Reps/Duration 10x Comments VC for core stab and muscle sequencing hip flex/ext, ab/ad Body Position Standing Water Level Chest Level Reps/Duration 15x ROM x 2 sets Lower Extremity Stretches piriformis, hip ER Body Position chair position against wall hamstring, ITB, add Body Position Standing Water Level Chest Level Equipment Small Noodle Upper Extremity Exercises lat pull down, IR/ER Body Position Standing Water Level Chest Level Equipment UE paddles Comments cues for core stab hor ab/ad, flex/ext Water Level Chest Level Equipment UE paddles Reps/Duration 10x renato, Comments DLS emphasis Upper Extremity Stretches walking w/paddles Reps/Duration 30 meters Comments cues for shoulder stab Spinal Exercises deep water hang Body Position Standing Water Level [place] Reps/Duration 2 min [place] Activities [place] Activities Bicycle [place] Running Equipment XL belt Duration 15 PT-OP-T Assessment and Plan Start: 08/03/18 08:10 Freq: Status: Active Protocol: Document 09/11/18 10:15 CLB (Rec: 09/11/18 13:34 CLB [email or web address]) Physical Therapy Assessment Goals knowledge deficit Impairment no aquatic exercise program Short Term Goal (STG) Instruct patient in aquatic ex program; patient able to tolerate 45 min aquatic exercise without increase in pain STG Duration 09/14/18 Stock Raiser Goal (LTG) Patient independent with aquatic exercise program for long-term pain management and fitness LTG Duration 11/01/18 Activity tolerance Impairment Oswestry disability index score 57% Short Term Goal (STG) Decrease Oswestry score to no greater than 45% STG Duration 09/14/18 Stock Raiser Goal (LTG) Decrease Oswestry score to no greater than 30% LTG Duration 11/01/18 antalgic gait Impairment antalgic gait Short Term Goal (STG) Patient to demonstrate 50% decrease in limp STG Duration 09/14/18 [facility]iary Goal (LTG) Patient able to ambulate without significant limp LTG Duration 11/01/18 weakness Impairment decrease strength in trunk and LE's Short Term Goal (STG) increase strength by 1/2 grade throughout STG Duration 09/14/18 Stock Raiser Goal (LTG) Increase strength to at least 4+/5 throughout pain Impairment pain lumbar spine, LE's left greater than right Short Term Goal (STG) decrease pain by 25% STG Duration 09/14/18 Stock Raiser Goal (LTG) Decrease pain by at least 50% LTG Duration 11/01/18 Assessment Summary Assessment Pt continues to require cues for core stabilization and posture. Physical Therapy Plan Frequency and Duration Frequency of Treatment 2x/Week Duration of Treatment 3 months Plan of Care Start Date 08/03/18 Plan of Care End Date 11/01/18 Therapeutic Interventions Therapeutic Interventions Aquatic Therapy Patient/Caregiver Education Next Visit Focus/Plan Next Note Type Treatment Note Next Visit Plan Continue aquatic PT per POC. Incorporate core muscle activation prior to LE or UE exercises. Improve static and dymnamic blalace and LE coordination with addition of ankle weights for kinesthetic awareness.
--- NOTE | 2018-09-15 15:25 | PT.OTN ---
Current Diagnoses Other intervertebral disc displacement, lumbar region (09/15/18) Physical Therapy Treatment Note PT-OP-A Visit Information Start: 08/03/18 08:10 Freq: Status: Active Protocol: Document 09/15/18 11:00 LJ (Rec: 09/15/18 15:16 LJ [email or web address]) Out-Patient Physical Therapy Visit Information Visit Information Visit Type Aquatic Treatment Note Visit Start Time 11:00 Visit Stop Time 11:45 Total Visit Minutes 45 Visit Number 6 Number of RN TRAUMA Visits 4 PT-OP-B Current Condition Start: 08/03/18 08:10 Freq: Status: Active Protocol: Document 08/03/18 11:16 SAK (Rec: 08/03/18 11:58 SAK [id number]) Current Condition History of Current Condition Onset Date 3 months Current Complaints LBP with radicular symptoms renato left greater than right History of Current Condition Reports function-limiting, worsening burning pain into left hip and left leg and numbness bilateral feet. Has fallen due to left leg giving way. Prior PT after all surgeries, but pain persists, worst in left leg. Now referred for aquatic PT. Prior Treatments and Tests October 2016 reattached all quad muscles back to right knee.(fell due to back pain, states a TKA has been recommended). History right LE cellulitis 05/11. January 2017 multilevel lumbar decompression L2-3, L3-4, and L4-5 stenosis 2018 tore rotator cuff left had surgical repair Treatment Goals Patient/Caregiver Goals Decrease pain, improve activity tolerance Prior Functional Status Baseline Function- ADL's Independent Baseline Function- Mobility Independent Baseline Function- Gait indep, no gait, Personal Factors Other Personal Factors That May Effect obesity Therapy/Recovery Cardiac history with angina, HTN PT-OP-C Subjective Start: 08/03/18 08:10 Freq: Status: Active Protocol: Document 09/15/18 11:00 LJ (Rec: 09/15/18 15:16 LJ [email or web address]) OP-PT Subjective Patient Comments Patient Comments Pt arrived 10 min early and began water walking. No new complaints other than HS and gastrocs feeling very tight. PT-OP-G Mobility & Gait Start: 08/03/18 08:10 Freq: Status: Active Protocol: Document 08/03/18 11:16 SAK (Rec: 08/03/18 15:56 SAK [id number]) OP Mobility Evaluation Transfers Sit to Stand painful Car Transfers painful Floor Transfers painful Functional Movements Lifting and Carrying painful Squats painful Running Assessment unable OP Gait Assessment Gait Gait Assistance Required: Independent Assistive Devices Assistive Device None Gait Deviations General Gait Pattern Antalgic Factors Limiting Gait Function Factors Limiting Gait Function Decreased Sensation Limited Range of Motion Pain PT-OP-H Neuro Start: 08/03/18 08:10 Freq: Status: Active Protocol: Document 08/03/18 11:16 SAK (Rec: 08/03/18 15:56 [facility] [id number]) Sensation Evaluation Gross Sensation Gross Sensation Left LE Impaired Sensation Description Paresthesia Dermatome Impairments L4 L5 S1 Deep Tendon Reflex & Clonus Assessment Deep Tendon Reflex Bilateral Achilles Deep Tendon Reflex 0 Absent Bilateral Patellar Deep Tendon Reflex 0 Absent PT-OP-J Posture/Palpation/Skin Start: 08/03/18 08:10 Freq: Status: Active Protocol: Document 08/03/18 11:16 SAK (Rec: 08/03/18 15:56 [facility] [id number]) Posture Evaluation Comments Posture Comments forward head, increased thoracic kyphosis and lumbar lordosis. Palpation Assessment Location piriformis Palpation Location bilateral Palpation Findings Soft Tissue Tightness Tenderness PT-OP-K Range of Motion Start: 08/03/18 08:10 Freq: Status: Active Protocol: Document 08/03/18 11:16 [facility] (Rec: 08/03/18 15:37 [facility] [id number]) Lumbar Spine Range of Motion Lumbar Spine Active Testing Position Standing Flexion 30 Extension 20 Lateral Flexion Left 30 Lateral Flexion Right 30 ROM Limitations Soft Tissue Tightness Pain Hip Goniometric Range of Motion Hip Measured in Degrees Left Testing Position Supine Flexion w/Knee Flexed 100 Straight Leg Raise 50 Extension 0 Abduction 25 Internal Rotation 10 External Rotation 40 Right Testing Position Supine Flexion w/Knee Flexed 100 Straight Leg Raise 45 Extension 0 Abduction 30 Internal Rotation 20 External Rotation 45 Hip ROM Limitations Hip ROM Limitations Soft Tissue Tightness Pain Knee Goniometric Range of Motion Knee Measured in Degrees Left Knee ROM WFL Yes Right Knee ROM WFL No Patient Position Supine Flexion Active (degrees) 95 Extension Active (degrees) 8 Extension Passive (degrees) 0 Ankle and Foot Goniometric Range of Motion Ankle and Foot Measured in Degrees renato Dorsiflexion with Knee Flexed 5 Dorsiflexion with Knee Extended 0 Plantarflexion 40 Ankle and Foot ROM Limitations ROM Limitations Soft Tissue Tightness PT-OP-L Special Tests Start: 08/03/18 08:10 Freq: Status: Active Protocol: Document 08/03/18 11:16 SAK (Rec: 08/03/18 15:56 SAK [id number]) Special Tests Lumbar Spine Special Tests Straight Leg Raise Test Results positive left PT-OP-M Strength Start: 08/03/18 08:10 Freq: Status: Active Protocol: Document 08/03/18 11:16 SAK (Rec: 08/03/18 15:37 SAK [id number]) Trunk Strength Trunk Manual Muscle Testing Flexion 3+ Fair+ Extension 3+ Fair+ Core Stabilization poor Hip Strength Hip Manual Muscle Testing Left Flexion (L2) 4- Good- Extension (S1) 3- Fair- Abduction 4- Good- Adduction 4- Good- External Rotation 3+ Fair+ Internal Rotation 4- Good- Right Flexion (L2) 4 Good Extension (S1) 3- Fair- Abduction 4 Good Adduction 4 Good External Rotation 4- Good- Internal Rotation 4- Good- Knee Strength Knee Manual Muscle Testing Left Flexion (S2) 4 Good Extension (L3) 4 Good Right Flexion (S2) 4 Good Extension (L3) 4 Good Ankle/Foot Strength Ankle and Foot Manual Muscle Testing Left Dorsiflexion (L4) 4+ Good+ Plantarflexion (S1) 4+ Good+ Right Dorsiflexion (L4) 4+ Good+ Plantarflexion (S1) 4+ Good+ Toe Strength Toe Manual Muscle Testing Left Great Toe Flexion 4- Good- Extension 4- Good- Right Great Toe Flexion 4+ Good+ Extension 4+ Good+ PT-OP-S Aquatic Treatment Start: 08/03/18 08:10 Freq: Status: Active Protocol: Document 09/15/18 15:19 JAMIN (Rec: 09/15/18 15:25 JAMIN [email or web address]) Aquatics Treatment Upper Extremity Exercises bicep, tricep Body Position Standing Water Level Chest Level Equipment UE paddles PT-OP-T Assessment and Plan Start: 08/03/18 08:10 Freq: Status: Active Protocol: Document 09/15/18 15:16 JAMIN (Rec: 09/15/18 15:25 JAMIN [email or web address]) Physical Therapy Assessment Rehab Potential Rehabilitation Potential Good Evaluation Complexity Number of Personal Factors/Comorbidities 3 or More Number of Body Systems Impaired 4 or More Clinical Presentation at Evaluation Evolving Impairments Impairments Activity Tolerance Gait Pain Strength Goals knowledge deficit Impairment no aquatic exercise program Short Term Goal (STG) Instruct patient in aquatic ex program; patient able to tolerate 45 min aquatic exercise without increase in pain STG Duration 09/14/18 Senior Living Goal (LTG) Patient independent with aquatic exercise program for long-term pain management and fitness LTG Duration 11/01/18 Activity tolerance Impairment Oswestry disability index score 57% Short Term Goal (STG) Decrease Oswestry score to no greater than 45% STG Duration 09/14/18 Cotton Opener Goal (LTG) Decrease Oswestry score to no greater than 30% LTG Duration 11/01/18 antalgic gait Impairment antalgic gait Short Term Goal (STG) Patient to demonstrate 50% decrease in limp STG Duration 09/14/18 Cotton Opener Goal (LTG) Patient able to ambulate without significant limp LTG Duration 11/01/18 weakness Impairment decrease strength in trunk and LE's Short Term Goal (STG) increase strength by 1/2 grade throughout STG Duration 09/14/18 Senior Living Goal (LTG) Increase strength to at least 4+/5 throughout pain Impairment pain lumbar spine, LE's left greater than right Short Term Goal (STG) decrease pain by 25% STG Duration 09/14/18 Cotton Opener Goal (LTG) Decrease pain by at least 50% LTG Duration 11/01/18 Assessment Summary Assessment Pt continues to require cues for core stabilization and posture but is improving. Pt exiting pool with less difficulty on the stairs. Improving ROM of LEs. Physical Therapy Plan Next Visit Focus/Plan Next Note Type Treatment Note Next Visit Plan Continue aquatic PT per POC. Incorporate core muscle activation prior to LE or UE exercises. Use quick direction changes for core stabilization.
--- NOTE | 2018-09-20 17:00 | PT.OTN ---
Current Diagnoses Other intervertebral disc displacement, lumbar region (09/18/18) Physical Therapy Treatment Note PT-OP-A Visit Information Start: 08/03/18 08:10 Freq: Status: Active Protocol: PT-OP-B Current Condition Start: 08/03/18 08:10 Freq: Status: Active Protocol: Document 08/03/18 11:16 SAK (Rec: 08/03/18 11:58 SAK [id number]) Current Condition History of Current Condition Onset Date 3 months Current Complaints LBP with radicular symptoms renato left greater than right History of Current Condition Reports function-limiting, worsening burning pain into left hip and left leg and numbness bilateral feet. Has fallen due to left leg giving way. Prior PT after all surgeries, but pain persists, worst in left leg. Now referred for aquatic PT. Prior Treatments and Tests October 2016 reattached all quad muscles back to right knee.(fell due to back pain, states a TKA has been recommended). History right LE cellulitis 05/11. January 2017 multilevel lumbar decompression L2-3, L3-4, and L4-5 stenosis 2018 tore rotator cuff left had surgical repair Treatment Goals Patient/Caregiver Goals Decrease pain, improve activity tolerance Prior Functional Status Baseline Function- ADL's Independent Baseline Function- Mobility Independent Baseline Function- Gait indep, no gait, Personal Factors Other Personal Factors That May Effect obesity Therapy/Recovery Cardiac history with angina, HTN PT-OP-C Subjective Start: 08/03/18 08:10 Freq: Status: Active Protocol: Document 09/15/18 11:00 LJ (Rec: 09/15/18 15:16 LJ [id number]) OP-PT Subjective Patient Comments Patient Comments Pt arrived 10 min early and began water walking. No new complaints other than HS and gastrocs feeling very tight. PT-OP-G Mobility & Gait Start: 08/03/18 08:10 Freq: Status: Active Protocol: Document 08/03/18 11:16 SAK (Rec: 08/03/18 15:56 SAK [id number]) OP Mobility Evaluation Transfers Sit to Stand painful Car Transfers painful Floor Transfers painful Functional Movements Lifting and Carrying painful Squats painful Running Assessment unable OP Gait Assessment Gait Gait Assistance Required: Independent Assistive Devices Assistive Device None Gait Deviations General Gait Pattern Antalgic Factors Limiting Gait Function Factors Limiting Gait Function Decreased Sensation Limited Range of Motion Pain PT-OP-H Neuro Start: 08/03/18 08:10 Freq: Status: Active Protocol: Document 08/03/18 11:16 SAK (Rec: 08/03/18 15:56 [facility] [id number]) Sensation Evaluation Gross Sensation Gross Sensation Left LE Impaired Sensation Description Paresthesia Dermatome Impairments L4 L5 S1 Deep Tendon Reflex & Clonus Assessment Deep Tendon Reflex Bilateral Achilles Deep Tendon Reflex 0 Absent Bilateral Patellar Deep Tendon Reflex 0 Absent PT-OP-J Posture/Palpation/Skin Start: 08/03/18 08:10 Freq: Status: Active Protocol: Document 08/03/18 11:16 SAK (Rec: 08/03/18 15:56 [facility] [id number]) Posture Evaluation Comments Posture Comments forward head, increased thoracic kyphosis and lumbar lordosis. Palpation Assessment Location piriformis Palpation Location bilateral Palpation Findings Soft Tissue Tightness Tenderness PT-OP-K Range of Motion Start: 08/03/18 08:10 Freq: Status: Active Protocol: Document 08/03/18 11:16 [facility] (Rec: 08/03/18 15:37 [facility] [id number]) Lumbar Spine Range of Motion Lumbar Spine Active Testing Position Standing Flexion 30 Extension 20 Lateral Flexion Left 30 Lateral Flexion Right 30 ROM Limitations Soft Tissue Tightness Pain Hip Goniometric Range of Motion Hip Measured in Degrees Left Testing Position Supine Flexion w/Knee Flexed 100 Straight Leg Raise 50 Extension 0 Abduction 25 Internal Rotation 10 External Rotation 40 Right Testing Position Supine Flexion w/Knee Flexed 100 Straight Leg Raise 45 Extension 0 Abduction 30 Internal Rotation 20 External Rotation 45 Hip ROM Limitations Hip ROM Limitations Soft Tissue Tightness Pain Knee Goniometric Range of Motion Knee Measured in Degrees Left Knee ROM WFL Yes Right Knee ROM WFL No Patient Position Supine Flexion Active (degrees) 95 Extension Active (degrees) 8 Extension Passive (degrees) 0 Ankle and Foot Goniometric Range of Motion Ankle and Foot Measured in Degrees renato Dorsiflexion with Knee Flexed 5 Dorsiflexion with Knee Extended 0 Plantarflexion 40 Ankle and Foot ROM Limitations ROM Limitations Soft Tissue Tightness PT-OP-L Special Tests Start: 08/03/18 08:10 Freq: Status: Active Protocol: Document 08/03/18 11:16 SAK (Rec: 08/03/18 15:56 [facility] [id number]) Special Tests Lumbar Spine Special Tests Straight Leg Raise Test Results positive left PT-OP-M Strength Start: 08/03/18 08:10 Freq: Status: Active Protocol: Document 08/03/18 11:16 SAK (Rec: 08/03/18 15:37 SAK [id number]) Trunk Strength Trunk Manual Muscle Testing Flexion 3+ Fair+ Extension 3+ Fair+ Core Stabilization poor Hip Strength Hip Manual Muscle Testing Left Flexion (L2) 4- Good- Extension (S1) 3- Fair- Abduction 4- Good- Adduction 4- Good- External Rotation 3+ Fair+ Internal Rotation 4- Good- Right Flexion (L2) 4 Good Extension (S1) 3- Fair- Abduction 4 Good Adduction 4 Good External Rotation 4- Good- Internal Rotation 4- Good- Knee Strength Knee Manual Muscle Testing Left Flexion (S2) 4 Good Extension (L3) 4 Good Right Flexion (S2) 4 Good Extension (L3) 4 Good Ankle/Foot Strength Ankle and Foot Manual Muscle Testing Left Dorsiflexion (L4) 4+ Good+ Plantarflexion (S1) 4+ Good+ Right Dorsiflexion (L4) 4+ Good+ Plantarflexion (S1) 4+ Good+ Toe Strength Toe Manual Muscle Testing Left Great Toe Flexion 4- Good- Extension 4- Good- Right Great Toe Flexion 4+ Good+ Extension 4+ Good+ PT-OP-S Aquatic Treatment Start: 08/03/18 08:10 Freq: Status: Active Protocol: Document 09/15/18 11:00 JAMIN (Rec: 09/15/18 15:25 JAMIN [email or web address]) Aquatics Treatment Upper Extremity Exercises bicep, tricep Body Position Standing Water Level Chest Level Equipment UE paddles PT-OP-T Assessment and Plan Start: 08/03/18 08:10 Freq: Status: Active Protocol: Document 09/15/18 11:00 JAMIN (Rec: 09/15/18 15:25 JAMIN [email or web address]) Physical Therapy Assessment Rehab Potential Rehabilitation Potential Good Evaluation Complexity Number of Personal Factors/Comorbidities 3 or More Number of Body Systems Impaired 4 or More Clinical Presentation at Evaluation Evolving Impairments Impairments Activity Tolerance Gait Pain Strength Goals knowledge deficit Impairment no aquatic exercise program Short Term Goal (STG) Instruct patient in aquatic ex program; patient able to tolerate 45 min aquatic exercise without increase in pain STG Duration 09/14/18 Applied Behavior Science Specialist Goal (LTG) Patient independent with aquatic exercise program for long-term pain management and fitness LTG Duration 11/01/18 Activity tolerance Impairment Oswestry disability index score 57% Short Term Goal (STG) Decrease Oswestry score to no greater than 45% STG Duration 09/14/18 Long-Term Goal (LTG) Decrease Oswestry score to no greater than 30% LTG Duration 11/01/18 antalgic gait Impairment antalgic gait Short Term Goal (STG) Patient to demonstrate 50% decrease in limp STG Duration 09/14/18 Applied Behavior Science Specialist Goal (LTG) Patient able to ambulate without significant limp LTG Duration 11/01/18 weakness Impairment decrease strength in trunk and LE's Short Term Goal (STG) increase strength by 1/2 grade throughout STG Duration 09/14/18 Applied Behavior Science Specialist Goal (LTG) Increase strength to at least 4+/5 throughout pain Impairment pain lumbar spine, LE's left greater than right Short Term Goal (STG) decrease pain by 25% STG Duration 09/14/18 Long-Term Goal (LTG) Decrease pain by at least 50% LTG Duration 11/01/18 Assessment Summary Assessment Pt continues to require cues for core stabilization and posture but is improving. Pt exiting pool with less difficulty on the stairs. Improving ROM of LEs. Physical Therapy Plan Next Visit Focus/Plan Next Note Type Treatment Note Next Visit Plan Continue aquatic PT per POC. Incorporate core muscle activation prior to LE or UE exercises. Use quick direction changes for core stabilization.
--- NOTE | 2018-09-22 15:03 | PT.OTN ---
Current Diagnoses Other intervertebral disc displacement, lumbar region (09/22/18) Physical Therapy Treatment Note PT-OP-A Visit Information Start: 08/03/18 08:10 Freq: Status: Active Protocol: Document 09/22/18 10:15 LJ (Rec: 09/22/18 15:02 LJ [email or web address]) Out-Patient Physical Therapy Visit Information Visit Information Visit Type Aquatic Treatment Note Visit Start Time 10:15 Visit Stop Time 11:00 Total Visit Minutes 45 Visit Number 7 Number of [employer] Visits 1 PT-OP-B Current Condition Start: 08/03/18 08:10 Freq: Status: Active Protocol: Document 08/03/18 11:16 SAK (Rec: 08/03/18 11:58 SAK [id number]) Current Condition History of Current Condition Onset Date 3 months Current Complaints LBP with radicular symptoms renato left greater than right History of Current Condition Reports function-limiting, worsening burning pain into left hip and left leg and numbness bilateral feet. Has fallen due to left leg giving way. Prior PT after all surgeries, but pain persists, worst in left leg. Now referred for aquatic PT. Prior Treatments and Tests October 2016 reattached all quad muscles back to right knee.(fell due to back pain, states a TKA has been recommended). History right LE cellulitis 05/11. January 2017 multilevel lumbar decompression L2-3, L3-4, and L4-5 stenosis 2018 tore rotator cuff left had surgical repair Treatment Goals Patient/Caregiver Goals Decrease pain, improve activity tolerance Prior Functional Status Baseline Function- ADL's Independent Baseline Function- Mobility Independent Baseline Function- Gait indep, no gait, Personal Factors Other Personal Factors That May Effect obesity Therapy/Recovery Cardiac history with angina, HTN PT-OP-C Subjective Start: 08/03/18 08:10 Freq: Status: Active Protocol: Document 09/22/18 10:15 LJ (Rec: 09/22/18 15:02 LJ [email or web address]) OP-PT Subjective Patient Comments Patient Comments Pt arrived 1/2 hour early. States his ankle pain he had been having is gone. Feels a bit more flexible since doing aquatic therapy PT-OP-G Mobility & Gait Start: 08/03/18 08:10 Freq: Status: Active Protocol: Document 08/03/18 11:16 SAK (Rec: 08/03/18 15:56 SAK [id number]) OP Mobility Evaluation Transfers Sit to Stand painful Car Transfers painful Floor Transfers painful Functional Movements Lifting and Carrying painful Squats painful Running Assessment unable OP Gait Assessment Gait Gait Assistance Required: Independent Assistive Devices Assistive Device None Gait Deviations General Gait Pattern Antalgic Factors Limiting Gait Function Factors Limiting Gait Function Decreased Sensation Limited Range of Motion Pain PT-OP-H Neuro Start: 08/03/18 08:10 Freq: Status: Active Protocol: Document 08/03/18 11:16 SAK (Rec: 08/03/18 15:56 [facility] [id number]) Sensation Evaluation Gross Sensation Gross Sensation Left LE Impaired Sensation Description Paresthesia Dermatome Impairments L4 L5 S1 Deep Tendon Reflex & Clonus Assessment Deep Tendon Reflex Bilateral Achilles Deep Tendon Reflex 0 Absent Bilateral Patellar Deep Tendon Reflex 0 Absent PT-OP-J Posture/Palpation/Skin Start: 08/03/18 08:10 Freq: Status: Active Protocol: Document 08/03/18 11:16 SAK (Rec: 08/03/18 15:56 [facility] [id number]) Posture Evaluation Comments Posture Comments forward head, increased thoracic kyphosis and lumbar lordosis. Palpation Assessment Location piriformis Palpation Location bilateral Palpation Findings Soft Tissue Tightness Tenderness PT-OP-K Range of Motion Start: 08/03/18 08:10 Freq: Status: Active Protocol: Document 08/03/18 11:16 SAK (Rec: 08/03/18 15:37 [facility] [id number]) Lumbar Spine Range of Motion Lumbar Spine Active Testing Position Standing Flexion 30 Extension 20 Lateral Flexion Left 30 Lateral Flexion Right 30 ROM Limitations Soft Tissue Tightness Pain Hip Goniometric Range of Motion Hip Measured in Degrees Left Testing Position Supine Flexion w/Knee Flexed 100 Straight Leg Raise 50 Extension 0 Abduction 25 Internal Rotation 10 External Rotation 40 Right Testing Position Supine Flexion w/Knee Flexed 100 Straight Leg Raise 45 Extension 0 Abduction 30 Internal Rotation 20 External Rotation 45 Hip ROM Limitations Hip ROM Limitations Soft Tissue Tightness Pain Knee Goniometric Range of Motion Knee Measured in Degrees Left Knee ROM WFL Yes Right Knee ROM WFL No Patient Position Supine Flexion Active (degrees) 95 Extension Active (degrees) 8 Extension Passive (degrees) 0 Ankle and Foot Goniometric Range of Motion Ankle and Foot Measured in Degrees renato Dorsiflexion with Knee Flexed 5 Dorsiflexion with Knee Extended 0 Plantarflexion 40 Ankle and Foot ROM Limitations ROM Limitations Soft Tissue Tightness PT-OP-L Special Tests Start: 08/03/18 08:10 Freq: Status: Active Protocol: Document 08/03/18 11:16 SAK (Rec: 08/03/18 15:56 SAK [id number]) Special Tests Lumbar Spine Special Tests Straight Leg Raise Test Results positive left PT-OP-M Strength Start: 08/03/18 08:10 Freq: Status: Active Protocol: Document 08/03/18 11:16 SAK (Rec: 08/03/18 15:37 SAK [id number]) Trunk Strength Trunk Manual Muscle Testing Flexion 3+ Fair+ Extension 3+ Fair+ Core Stabilization poor Hip Strength Hip Manual Muscle Testing Left Flexion (L2) 4- Good- Extension (S1) 3- Fair- Abduction 4- Good- Adduction 4- Good- External Rotation 3+ Fair+ Internal Rotation 4- Good- Right Flexion (L2) 4 Good Extension (S1) 3- Fair- Abduction 4 Good Adduction 4 Good External Rotation 4- Good- Internal Rotation 4- Good- Knee Strength Knee Manual Muscle Testing Left Flexion (S2) 4 Good Extension (L3) 4 Good Right Flexion (S2) 4 Good Extension (L3) 4 Good Ankle/Foot Strength Ankle and Foot Manual Muscle Testing Left Dorsiflexion (L4) 4+ Good+ Plantarflexion (S1) 4+ Good+ Right Dorsiflexion (L4) 4+ Good+ Plantarflexion (S1) 4+ Good+ Toe Strength Toe Manual Muscle Testing Left Great Toe Flexion 4- Good- Extension 4- Good- Right Great Toe Flexion 4+ Good+ Extension 4+ Good+ PT-OP-S Aquatic Treatment Start: 08/03/18 08:10 Freq: Status: Active Protocol: Document 09/22/18 10:15 JAMIN (Rec: 09/22/18 15:02 LJ [email or web address]) Aquatics Treatment Water Walking stairs all directions Water Level Waist Level Comments 6 boxes lunge walking Water Level Waist Level Level of Assistance Standby Assistance Verbal Cues Comments #4 wts march, straight leg march Water Level Chest Level Level of Assistance Standby Assistance Verbal Cues Comments #4 wts fwd,bck,side Water Level Chest Level Level of Assistance Standby Assistance Verbal Cues Comments #4 wts Lower Extremity Exercises HS curls and kickbacks Details at wall Water Level Chest Level Equipment #4 wts CC,CCW Body Position Standing Water Level Chest Level Reps/Duration 2 x 10 circles bilat, fast and slow; lg and sm Comments cues for core stab; #4 wts hip flex/ext, ab/ad Body Position Standing Water Level Chest Level Reps/Duration 15x ROM x 2 sets Comments #4 wts Lower Extremity Stretches HC Reps/Duration on boxes hamstring, ITB, add Body Position Standing Water Level Chest Level Equipment Large Noodle Upper Extremity Exercises bicep, tricep Body Position Standing Water Level Chest Level Equipment UE paddles lat pull down, IR/ER Body Position Standing Water Level Chest Level Equipment UE paddles Comments cues for core stab hor ab/ad, flex/ext Water Level Chest Level Equipment UE paddles Reps/Duration 10x renato, Comments DLS emphasis Upper Extremity Stretches walking w/paddles Reps/Duration 60 meters; various depths Comments cues for shoulder stab Balance standing stabilization w/perturbations Body Position Standing Water Level Chest Level Reps/Duration 5 min Comments pt with difficulty in coordinating trunk mms [place] [employer] [place] [employer] Bicycle [place] Equipment XL belt Duration 15 PT-OP-T Assessment and Plan Start: 08/03/18 08:10 Freq: Status: Active Protocol: Document 09/22/18 10:15 JAMIN (Rec: 09/22/18 15:02 JAMIN [id number]) Physical Therapy Assessment Rehab Potential Rehabilitation Potential Good Evaluation Complexity Number of Personal Factors/Comorbidities 3 or More Number of Body Systems Impaired 4 or More Clinical Presentation at Evaluation Evolving Impairments Impairments Activity Tolerance Gait Pain Strength Goals knowledge deficit Impairment no aquatic exercise program Short Term Goal (STG) Instruct patient in aquatic ex program; patient able to tolerate 45 min aquatic exercise without increase in pain STG Duration 09/14/18 Photo Lab Manager Goal (LTG) Patient independent with aquatic exercise program for long-term pain management and fitness LTG Duration 11/01/18 Activity tolerance Impairment Oswestry disability index score 57% Short Term Goal (STG) Decrease Oswestry score to no greater than 45% STG Duration 09/14/18 Mcc Goal (LTG) Decrease Oswestry score to no greater than 30% LTG Duration 11/01/18 antalgic gait Impairment antalgic gait Short Term Goal (STG) Patient to demonstrate 50% decrease in limp STG Duration 09/14/18 Mcc Goal (LTG) Patient able to ambulate without significant limp LTG Duration 11/01/18 weakness Impairment decrease strength in trunk and LE's Short Term Goal (STG) increase strength by 1/2 grade throughout STG Duration 09/14/18 Mcc Goal (LTG) Increase strength to at least 4+/5 throughout pain Impairment pain lumbar spine, LE's left greater than right Short Term Goal (STG) decrease pain by 25% STG Duration 09/14/18 Mcc Goal (LTG) Decrease pain by at least 50% LTG Duration 11/01/18 Assessment Summary Assessment Pt improving on step ups on boxes. No pain or knee buckling on either knee. Increased ROM with HS stretching. Pt climbed out of pool to use the restroom using the ladder rather than stairs . Used handrails and had only slight difficulty putting full weight on RLE. Physical Therapy Plan Next Visit Focus/Plan Next Note Type Treatment Note Next Visit Plan Continue aquatic PT per POC. Incorporate core muscle activation prior to LE or UE exercises. Use quick direction changes for core stabilization.
--- NOTE | 2018-09-22 15:42 | PT.OTN ---
Current Diagnoses Other intervertebral disc displacement, lumbar region (09/22/18) Physical Therapy Treatment Note PT-OP-A Visit Information Start: 08/03/18 08:10 Freq: Status: Active Protocol: Document 09/22/18 10:15 LJ (Rec: 09/22/18 15:02 LJ [email or web address]) Out-Patient Physical Therapy Visit Information Visit Information Visit Type Aquatic Treatment Note Visit Start Time 10:15 Visit Stop Time 11:00 Total Visit Minutes 45 Visit Number 7 Number of ARTIFICIAL CANDY MAKER Visits 1 PT-OP-B Current Condition Start: 08/03/18 08:10 Freq: Status: Active Protocol: Document 08/03/18 11:16 SAK (Rec: 08/03/18 11:58 SAK [id number]) Current Condition History of Current Condition Onset Date 3 months Current Complaints LBP with radicular symptoms renato left greater than right History of Current Condition Reports function-limiting, worsening burning pain into left hip and left leg and numbness bilateral feet. Has fallen due to left leg giving way. Prior PT after all surgeries, but pain persists, worst in left leg. Now referred for aquatic PT. Prior Treatments and Tests October 2016 reattached all quad muscles back to right knee.(fell due to back pain, states a TKA has been recommended). History right LE cellulitis 05/11. January 2017 multilevel lumbar decompression L2-3, L3-4, and L4-5 stenosis 2018 tore rotator cuff left had surgical repair Treatment Goals Patient/Caregiver Goals Decrease pain, improve activity tolerance Prior Functional Status Baseline Function- ADL's Independent Baseline Function- Mobility Independent Baseline Function- Gait indep, no gait, Personal Factors Other Personal Factors That May Effect obesity Therapy/Recovery Cardiac history with angina, HTN PT-OP-C Subjective Start: 08/03/18 08:10 Freq: Status: Active Protocol: Document 09/22/18 10:15 LJ (Rec: 09/22/18 15:02 LJ [email or web address]) OP-PT Subjective Patient Comments Patient Comments Pt arrived 1/2 hour early. States his ankle pain he had been having is gone. Feels a bit more flexible since doing aquatic therapy PT-OP-G Mobility & Gait Start: 08/03/18 08:10 Freq: Status: Active Protocol: Document 08/03/18 11:16 SAK (Rec: 08/03/18 15:56 SAK [id number]) OP Mobility Evaluation Transfers Sit to Stand painful Car Transfers painful Floor Transfers painful Functional Movements Lifting and Carrying painful Squats painful Running Assessment unable OP Gait Assessment Gait Gait Assistance Required: Independent Assistive Devices Assistive Device None Gait Deviations General Gait Pattern Antalgic Factors Limiting Gait Function Factors Limiting Gait Function Decreased Sensation Limited Range of Motion Pain PT-OP-H Neuro Start: 08/03/18 08:10 Freq: Status: Active Protocol: Document 08/03/18 11:16 SAK (Rec: 08/03/18 15:56 [facility] [id number]) Sensation Evaluation Gross Sensation Gross Sensation Left LE Impaired Sensation Description Paresthesia Dermatome Impairments L4 L5 S1 Deep Tendon Reflex & Clonus Assessment Deep Tendon Reflex Bilateral Achilles Deep Tendon Reflex 0 Absent Bilateral Patellar Deep Tendon Reflex 0 Absent PT-OP-J Posture/Palpation/Skin Start: 08/03/18 08:10 Freq: Status: Active Protocol: Document 08/03/18 11:16 SAK (Rec: 08/03/18 15:56 [facility] [id number]) Posture Evaluation Comments Posture Comments forward head, increased thoracic kyphosis and lumbar lordosis. Palpation Assessment Location piriformis Palpation Location bilateral Palpation Findings Soft Tissue Tightness Tenderness PT-OP-K Range of Motion Start: 08/03/18 08:10 Freq: Status: Active Protocol: Document 08/03/18 11:16 SAK (Rec: 08/03/18 15:37 [facility] [id number]) Lumbar Spine Range of Motion Lumbar Spine Active Testing Position Standing Flexion 30 Extension 20 Lateral Flexion Left 30 Lateral Flexion Right 30 ROM Limitations Soft Tissue Tightness Pain Hip Goniometric Range of Motion Hip Measured in Degrees Left Testing Position Supine Flexion w/Knee Flexed 100 Straight Leg Raise 50 Extension 0 Abduction 25 Internal Rotation 10 External Rotation 40 Right Testing Position Supine Flexion w/Knee Flexed 100 Straight Leg Raise 45 Extension 0 Abduction 30 Internal Rotation 20 External Rotation 45 Hip ROM Limitations Hip ROM Limitations Soft Tissue Tightness Pain Knee Goniometric Range of Motion Knee Measured in Degrees Left Knee ROM WFL Yes Right Knee ROM WFL No Patient Position Supine Flexion Active (degrees) 95 Extension Active (degrees) 8 Extension Passive (degrees) 0 Ankle and Foot Goniometric Range of Motion Ankle and Foot Measured in Degrees renato Dorsiflexion with Knee Flexed 5 Dorsiflexion with Knee Extended 0 Plantarflexion 40 Ankle and Foot ROM Limitations ROM Limitations Soft Tissue Tightness PT-OP-L Special Tests Start: 08/03/18 08:10 Freq: Status: Active Protocol: Document 08/03/18 11:16 SAK (Rec: 08/03/18 15:56 SAK [id number]) Special Tests Lumbar Spine Special Tests Straight Leg Raise Test Results positive left PT-OP-M Strength Start: 08/03/18 08:10 Freq: Status: Active Protocol: Document 08/03/18 11:16 SAK (Rec: 08/03/18 15:37 SAK [id number]) Trunk Strength Trunk Manual Muscle Testing Flexion 3+ Fair+ Extension 3+ Fair+ Core Stabilization poor Hip Strength Hip Manual Muscle Testing Left Flexion (L2) 4- Good- Extension (S1) 3- Fair- Abduction 4- Good- Adduction 4- Good- External Rotation 3+ Fair+ Internal Rotation 4- Good- Right Flexion (L2) 4 Good Extension (S1) 3- Fair- Abduction 4 Good Adduction 4 Good External Rotation 4- Good- Internal Rotation 4- Good- Knee Strength Knee Manual Muscle Testing Left Flexion (S2) 4 Good Extension (L3) 4 Good Right Flexion (S2) 4 Good Extension (L3) 4 Good Ankle/Foot Strength Ankle and Foot Manual Muscle Testing Left Dorsiflexion (L4) 4+ Good+ Plantarflexion (S1) 4+ Good+ Right Dorsiflexion (L4) 4+ Good+ Plantarflexion (S1) 4+ Good+ Toe Strength Toe Manual Muscle Testing Left Great Toe Flexion 4- Good- Extension 4- Good- Right Great Toe Flexion 4+ Good+ Extension 4+ Good+ PT-OP-S Aquatic Treatment Start: 08/03/18 08:10 Freq: Status: Active Protocol: Document 09/22/18 10:15 JAMIN (Rec: 09/22/18 15:02 LJ [email or web address]) Aquatics Treatment Water Walking stairs all directions Water Level Waist Level Comments 6 boxes lunge walking Water Level Waist Level Level of Assistance Standby Assistance Verbal Cues Comments #4 wts march, straight leg march Water Level Chest Level Level of Assistance Standby Assistance Verbal Cues Comments #4 wts fwd,bck,side Water Level Chest Level Level of Assistance Standby Assistance Verbal Cues Comments #4 wts Lower Extremity Exercises HS curls and kickbacks Details at wall Water Level Chest Level Equipment #4 wts CC,CCW Body Position Standing Water Level Chest Level Reps/Duration 2 x 10 circles bilat, fast and slow; lg and sm Comments cues for core stab; #4 wts hip flex/ext, ab/ad Body Position Standing Water Level Chest Level Reps/Duration 15x ROM x 2 sets Comments #4 wts Lower Extremity Stretches HC Reps/Duration on boxes hamstring, ITB, add Body Position Standing Water Level Chest Level Equipment Large Noodle Upper Extremity Exercises bicep, tricep Body Position Standing Water Level Chest Level Equipment UE paddles lat pull down, IR/ER Body Position Standing Water Level Chest Level Equipment UE paddles Comments cues for core stab hor ab/ad, flex/ext Water Level Chest Level Equipment UE paddles Reps/Duration 10x renato, Comments DLS emphasis Upper Extremity Stretches walking w/paddles Reps/Duration 60 meters; various depths Comments cues for shoulder stab Balance standing stabilization w/perturbations Body Position Standing Water Level Chest Level Reps/Duration 5 min Comments pt with difficulty in coordinating trunk mms [place] Activities [place] Activities Bicycle Cross [place] Equipment XL belt Duration 15 PT-OP-T Assessment and Plan Start: 08/03/18 08:10 Freq: Status: Active Protocol: Document 09/22/18 10:15 JAMIN (Rec: 09/22/18 15:02 JAMIN [email or web address]) Physical Therapy Assessment Rehab Potential Rehabilitation Potential Good Evaluation Complexity Number of Personal Factors/Comorbidities 3 or More Number of Body Systems Impaired 4 or More Clinical Presentation at Evaluation Evolving Impairments Impairments Activity Tolerance Gait Pain Strength Goals knowledge deficit Impairment no aquatic exercise program Short Term Goal (STG) Instruct patient in aquatic ex program; patient able to tolerate 45 min aquatic exercise without increase in pain STG Duration 09/14/18 [employer] Goal (LTG) Patient independent with aquatic exercise program for long-term pain management and fitness LTG Duration 11/01/18 Activity tolerance Impairment Oswestry disability index score 57% Short Term Goal (STG) Decrease Oswestry score to no greater than 45% STG Duration 09/14/18 Shelter Goal (LTG) Decrease Oswestry score to no greater than 30% LTG Duration 11/01/18 antalgic gait Impairment antalgic gait Short Term Goal (STG) Patient to demonstrate 50% decrease in limp STG Duration 09/14/18 Shelter Goal (LTG) Patient able to ambulate without significant limp LTG Duration 11/01/18 weakness Impairment decrease strength in trunk and LE's Short Term Goal (STG) increase strength by 1/2 grade throughout STG Duration 09/14/18 Shelter Goal (LTG) Increase strength to at least 4+/5 throughout pain Impairment pain lumbar spine, LE's left greater than right Short Term Goal (STG) decrease pain by 25% STG Duration 09/14/18 Shelter Goal (LTG) Decrease pain by at least 50% LTG Duration 11/01/18 Assessment Summary Assessment Pt improving on step ups on boxes. No pain or knee buckling on either knee. Increased ROM with HS stretching. Pt climbed out of pool to use the restroom using the ladder rather than stairs . Used handrails and had only slight difficulty putting full weight on RLE. Physical Therapy Plan Next Visit Focus/Plan Next Note Type Treatment Note Next Visit Plan Continue aquatic PT per POC. Incorporate core muscle activation prior to LE or UE exercises. Use quick direction changes for core stabilization.
--- NOTE | 2018-09-25 14:34 | PT.OTN ---
Current Diagnoses Other intervertebral disc displacement, lumbar region (09/25/18) Physical Therapy Treatment Note PT-OP-A Visit Information Start: 08/03/18 08:10 Freq: Status: Active Protocol: Document 09/25/18 10:15 LJ (Rec: 09/25/18 14:34 LJ [email or web address]) Out-Patient Physical Therapy Visit Information Visit Information Visit Type Aquatic Treatment Note Visit Start Time 10:15 Visit Stop Time 11:00 Total Visit Minutes 45 Visit Number 9 Number of STAVE INSPECTOR Visits 3 PT-OP-B Current Condition Start: 08/03/18 08:10 Freq: Status: Active Protocol: Document 08/03/18 11:16 SAK (Rec: 08/03/18 11:58 SAK [id number]) Current Condition History of Current Condition Onset Date 3 months Current Complaints LBP with radicular symptoms renato left greater than right History of Current Condition Reports function-limiting, worsening burning pain into left hip and left leg and numbness bilateral feet. Has fallen due to left leg giving way. Prior PT after all surgeries, but pain persists, worst in left leg. Now referred for aquatic PT. Prior Treatments and Tests October 2016 reattached all quad muscles back to right knee.(fell due to back pain, states a TKA has been recommended). History right LE cellulitis 05/11. January 2017 multilevel lumbar decompression L2-3, L3-4, and L4-5 stenosis 2018 tore rotator cuff left had surgical repair Treatment Goals Patient/Caregiver Goals Decrease pain, improve activity tolerance Prior Functional Status Baseline Function- ADL's Independent Baseline Function- Mobility Independent Baseline Function- Gait indep, no gait, Personal Factors Other Personal Factors That May Effect obesity Therapy/Recovery Cardiac history with angina, HTN PT-OP-C Subjective Start: 08/03/18 08:10 Freq: Status: Active Protocol: Document 09/25/18 10:15 LJ (Rec: 09/25/18 14:34 LJ [email or web address]) OP-PT Subjective Patient Comments Patient Comments Pt arrived 10 min early and began working out in deep water PT-OP-G Mobility & Gait Start: 08/03/18 08:10 Freq: Status: Active Protocol: Document 08/03/18 11:16 SAK (Rec: 08/03/18 15:56 SAK [id number]) OP Mobility Evaluation Transfers Sit to Stand painful Car Transfers painful Floor Transfers painful Functional Movements Lifting and Carrying painful Squats painful Running Assessment unable OP Gait Assessment Gait Gait Assistance Required: Independent Assistive Devices Assistive Device None Gait Deviations General Gait Pattern Antalgic Factors Limiting Gait Function Factors Limiting Gait Function Decreased Sensation Limited Range of Motion Pain PT-OP-H Neuro Start: 08/03/18 08:10 Freq: Status: Active Protocol: Document 08/03/18 11:16 [facility] (Rec: 08/03/18 15:56 [facility] [id number]) Sensation Evaluation Gross Sensation Gross Sensation Left LE Impaired Sensation Description Paresthesia Dermatome Impairments L4 L5 S1 Deep Tendon Reflex & Clonus Assessment Deep Tendon Reflex Bilateral Achilles Deep Tendon Reflex 0 Absent Bilateral Patellar Deep Tendon Reflex 0 Absent PT-OP-J Posture/Palpation/Skin Start: 08/03/18 08:10 Freq: Status: Active Protocol: Document 08/03/18 11:16 [facility] (Rec: 08/03/18 15:56 [facility] [id number]) Posture Evaluation Comments Posture Comments forward head, increased thoracic kyphosis and lumbar lordosis. Palpation Assessment Location piriformis Palpation Location bilateral Palpation Findings Soft Tissue Tightness Tenderness PT-OP-K Range of Motion Start: 08/03/18 08:10 Freq: Status: Active Protocol: Document 08/03/18 11:16 [facility] (Rec: 08/03/18 15:37 [facility] [id number]) Lumbar Spine Range of Motion Lumbar Spine Active Testing Position Standing Flexion 30 Extension 20 Lateral Flexion Left 30 Lateral Flexion Right 30 ROM Limitations Soft Tissue Tightness Pain Hip Goniometric Range of Motion Hip Measured in Degrees Left Testing Position Supine Flexion w/Knee Flexed 100 Straight Leg Raise 50 Extension 0 Abduction 25 Internal Rotation 10 External Rotation 40 Right Testing Position Supine Flexion w/Knee Flexed 100 Straight Leg Raise 45 Extension 0 Abduction 30 Internal Rotation 20 External Rotation 45 Hip ROM Limitations Hip ROM Limitations Soft Tissue Tightness Pain Knee Goniometric Range of Motion Knee Measured in Degrees Left Knee ROM WFL Yes Right Knee ROM WFL No Patient Position Supine Flexion Active (degrees) 95 Extension Active (degrees) 8 Extension Passive (degrees) 0 Ankle and Foot Goniometric Range of Motion Ankle and Foot Measured in Degrees renato Dorsiflexion with Knee Flexed 5 Dorsiflexion with Knee Extended 0 Plantarflexion 40 Ankle and Foot ROM Limitations ROM Limitations Soft Tissue Tightness PT-OP-L Special Tests Start: 08/03/18 08:10 Freq: Status: Active Protocol: Document 08/03/18 11:16 SAK (Rec: 08/03/18 15:56 SAK [id number]) Special Tests Lumbar Spine Special Tests Straight Leg Raise Test Results positive left PT-OP-M Strength Start: 08/03/18 08:10 Freq: Status: Active Protocol: Document 08/03/18 11:16 SAK (Rec: 08/03/18 15:37 SAK [id number]) Trunk Strength Trunk Manual Muscle Testing Flexion 3+ Fair+ Extension 3+ Fair+ Core Stabilization poor Hip Strength Hip Manual Muscle Testing Left Flexion (L2) 4- Good- Extension (S1) 3- Fair- Abduction 4- Good- Adduction 4- Good- External Rotation 3+ Fair+ Internal Rotation 4- Good- Right Flexion (L2) 4 Good Extension (S1) 3- Fair- Abduction 4 Good Adduction 4 Good External Rotation 4- Good- Internal Rotation 4- Good- Knee Strength Knee Manual Muscle Testing Left Flexion (S2) 4 Good Extension (L3) 4 Good Right Flexion (S2) 4 Good Extension (L3) 4 Good Ankle/Foot Strength Ankle and Foot Manual Muscle Testing Left Dorsiflexion (L4) 4+ Good+ Plantarflexion (S1) 4+ Good+ Right Dorsiflexion (L4) 4+ Good+ Plantarflexion (S1) 4+ Good+ Toe Strength Toe Manual Muscle Testing Left Great Toe Flexion 4- Good- Extension 4- Good- Right Great Toe Flexion 4+ Good+ Extension 4+ Good+ PT-OP-S Aquatic Treatment Start: 08/03/18 08:10 Freq: Status: Active Protocol: Document 09/25/18 10:15 JAMIN (Rec: 09/25/18 14:34 JAMIN [email or web address]) Aquatics Treatment Pool Entry/Exit Pool Entry/Exit Method Stairs Assistance Independent Water Walking lunge walking Water Level Waist Level Walking Equipment Ankle Floats Level of Assistance Standby Assistance Verbal Cues march, straight leg march Water Level Chest Level Walking Equipment Ankle Floats Level of Assistance Standby Assistance Verbal Cues fwd,bck,side Water Level Chest Level Walking Equipment Ankle Floats Level of Assistance Standby Assistance Verbal Cues Lower Extremity Exercises HS curls Details at wall Body Position Standing Water Level Chest Level Equipment Ankle Floats Reps/Duration 2x 15 HS curls and kickbacks Details at wall Body Position Prone Water Level Chest Level Equipment Ankle Floats CC,CCW Body Position Standing Water Level Chest Level Equipment Ankle Floats Reps/Duration 2 x 10 circles bilat, fast and slow; lg and sm Comments cues for core stab; hip flex/ext, ab/ad Body Position Standing Water Level Chest Level Equipment Ankle Floats Reps/Duration 15x ROM x 2 sets Lower Extremity Stretches HC Reps/Duration at wall hamstring, ITB, add Body Position Standing Water Level Chest Level Reps/Duration 2x 30' bilat Comments at wall Upper Extremity Exercises bicep, tricep Body Position Standing Water Level Chest Level Equipment UE paddles Comments cues for core stab lat pull down, IR/ER Body Position Standing Water Level Chest Level Equipment UE paddles Reps/Duration 15 bilat Comments cues for core stab hor ab/ad, flex/ext Water Level Chest Level Equipment UE paddles Reps/Duration 15x renato, Comments uni and bilat Upper Extremity Stretches walking w/paddles Reps/Duration 30 meters various depths [place] Activities [place] Activities Bicycle Bicycle Backwards Cross [place] Hip Abduction/Adduction Sit Kicks Other Activities 30/30 x 6 intervals w/above exercises pendulums SLR in corner #2.5 wtson ankles Equipment XL belt Duration 15 PT-OP-T Assessment and Plan Start: 08/03/18 08:10 Freq: Status: Active Protocol: Document 09/25/18 10:15 JAMIN (Rec: 09/25/18 14:34 JAMIN [email or web address]) Physical Therapy Assessment Rehab Potential Rehabilitation Potential Good Evaluation Complexity Number of Personal Factors/Comorbidities 3 or More Number of Body Systems Impaired 4 or More Clinical Presentation at Evaluation Evolving Impairments Impairments Activity Tolerance Gait Pain Strength Goals knowledge deficit Impairment no aquatic exercise program Short Term Goal (STG) Instruct patient in aquatic ex program; patient able to tolerate 45 min aquatic exercise without increase in pain STG Duration 09/14/18 [facility] Goal (LTG) Patient independent with aquatic exercise program for long-term pain management and fitness LTG Duration 11/01/18 Activity tolerance Impairment Oswestry disability index score 57% Short Term Goal (STG) Decrease Oswestry score to no greater than 45% STG Duration 09/14/18 [facility] Goal (LTG) Decrease Oswestry score to no greater than 30% LTG Duration 11/01/18 antalgic gait Impairment antalgic gait Short Term Goal (STG) Patient to demonstrate 50% decrease in limp STG Duration 09/14/18 [employer] Goal (LTG) Patient able to ambulate without significant limp LTG Duration 11/01/18 weakness Impairment decrease strength in trunk and LE's Short Term Goal (STG) increase strength by 1/2 grade throughout STG Duration 09/14/18 [facility] Goal (LTG) Increase strength to at least 4+/5 throughout pain Impairment pain lumbar spine, LE's left greater than right Short Term Goal (STG) decrease pain by 25% STG Duration 09/14/18 [facility] Goal (LTG) Decrease pain by at least 50% LTG Duration 11/01/18 Assessment Summary Assessment Increased ROM with HS stretching using white noodle. Improving posture requiring fewer cues. Pt coordination better than previous sessions. Tolerance for increased intensity improving. Physical Therapy Plan Next Visit Focus/Plan Next Visit Plan Continue aquatic treatment. Increase intensity with deep water intervals. Focus on posterior chain and abdominal strengthening for improved activity tolerance and pain reduction
--- NOTE | 2018-10-02 14:52 | PT.OTN ---
Current Diagnoses Other intervertebral disc displacement, lumbar region (10/02/18) Physical Therapy Treatment Note PT-OP-A Visit Information Start: 08/03/18 08:10 Freq: Status: Active Protocol: Document 10/02/18 10:15 LJ (Rec: 10/02/18 14:52 LJ [id number]) Out-Patient Physical Therapy Visit Information Visit Information Visit Type Aquatic Treatment Note Visit Start Time 10:15 Visit Stop Time 11:00 Total Visit Minutes 45 Visit Number 10 Number of SHOP TAILOR Visits 4 PT-OP-B Current Condition Start: 08/03/18 08:10 Freq: Status: Active Protocol: Document 08/03/18 11:16 SAK (Rec: 08/03/18 11:58 SAK [id number]) Current Condition History of Current Condition Onset Date 3 months Current Complaints LBP with radicular symptoms renato left greater than right History of Current Condition Reports function-limiting, worsening burning pain into left hip and left leg and numbness bilateral feet. Has fallen due to left leg giving way. Prior PT after all surgeries, but pain persists, worst in left leg. Now referred for aquatic PT. Prior Treatments and Tests October 2016 reattached all quad muscles back to right knee.(fell due to back pain, states a TKA has been recommended). History right LE cellulitis 05/11. January 2017 multilevel lumbar decompression L2-3, L3-4, and L4-5 stenosis 2018 tore rotator cuff left had surgical repair Treatment Goals Patient/Caregiver Goals Decrease pain, improve activity tolerance Prior Functional Status Baseline Function- ADL's Independent Baseline Function- Mobility Independent Baseline Function- Gait indep, no gait, Personal Factors Other Personal Factors That May Effect obesity Therapy/Recovery Cardiac history with angina, HTN PT-OP-C Subjective Start: 08/03/18 08:10 Freq: Status: Active Protocol: Document 10/02/18 10:15 LJ (Rec: 10/02/18 14:52 LJ [id number]) OP-PT Subjective Patient Comments Patient Comments Pt arrived 10 min early and began working out in deep water. States he is feeling stronger and his coordination is returning PT-OP-G Mobility & Gait Start: 08/03/18 08:10 Freq: Status: Active Protocol: Document 08/03/18 11:16 SAK (Rec: 08/03/18 15:56 SAK [id number]) OP Mobility Evaluation Transfers Sit to Stand painful Car Transfers painful Floor Transfers painful Functional Movements Lifting and Carrying painful Squats painful Running Assessment unable OP Gait Assessment Gait Gait Assistance Required: Independent Assistive Devices Assistive Device None Gait Deviations General Gait Pattern Antalgic Factors Limiting Gait Function Factors Limiting Gait Function Decreased Sensation Limited Range of Motion Pain PT-OP-H Neuro Start: 08/03/18 08:10 Freq: Status: Active Protocol: Document 08/03/18 11:16 SAK (Rec: 08/03/18 15:56 [facility] [id number]) Sensation Evaluation Gross Sensation Gross Sensation Left LE Impaired Sensation Description Paresthesia Dermatome Impairments L4 L5 S1 Deep Tendon Reflex & Clonus Assessment Deep Tendon Reflex Bilateral Achilles Deep Tendon Reflex 0 Absent Bilateral Patellar Deep Tendon Reflex 0 Absent PT-OP-J Posture/Palpation/Skin Start: 08/03/18 08:10 Freq: Status: Active Protocol: Document 08/03/18 11:16 SAK (Rec: 08/03/18 15:56 [facility] [id number]) Posture Evaluation Comments Posture Comments forward head, increased thoracic kyphosis and lumbar lordosis. Palpation Assessment Location piriformis Palpation Location bilateral Palpation Findings Soft Tissue Tightness Tenderness PT-OP-K Range of Motion Start: 08/03/18 08:10 Freq: Status: Active Protocol: Document 08/03/18 11:16 [facility] (Rec: 08/03/18 15:37 [facility] [id number]) Lumbar Spine Range of Motion Lumbar Spine Active Testing Position Standing Flexion 30 Extension 20 Lateral Flexion Left 30 Lateral Flexion Right 30 ROM Limitations Soft Tissue Tightness Pain Hip Goniometric Range of Motion Hip Measured in Degrees Left Testing Position Supine Flexion w/Knee Flexed 100 Straight Leg Raise 50 Extension 0 Abduction 25 Internal Rotation 10 External Rotation 40 Right Testing Position Supine Flexion w/Knee Flexed 100 Straight Leg Raise 45 Extension 0 Abduction 30 Internal Rotation 20 External Rotation 45 Hip ROM Limitations Hip ROM Limitations Soft Tissue Tightness Pain Knee Goniometric Range of Motion Knee Measured in Degrees Left Knee ROM WFL Yes Right Knee ROM WFL No Patient Position Supine Flexion Active (degrees) 95 Extension Active (degrees) 8 Extension Passive (degrees) 0 Ankle and Foot Goniometric Range of Motion Ankle and Foot Measured in Degrees renato Dorsiflexion with Knee Flexed 5 Dorsiflexion with Knee Extended 0 Plantarflexion 40 Ankle and Foot ROM Limitations ROM Limitations Soft Tissue Tightness PT-OP-L Special Tests Start: 08/03/18 08:10 Freq: Status: Active Protocol: Document 08/03/18 11:16 SAK (Rec: 08/03/18 15:56 SAK [id number]) Special Tests Lumbar Spine Special Tests Straight Leg Raise Test Results positive left PT-OP-M Strength Start: 08/03/18 08:10 Freq: Status: Active Protocol: Document 08/03/18 11:16 SAK (Rec: 08/03/18 15:37 SAK [id number]) Trunk Strength Trunk Manual Muscle Testing Flexion 3+ Fair+ Extension 3+ Fair+ Core Stabilization poor Hip Strength Hip Manual Muscle Testing Left Flexion (L2) 4- Good- Extension (S1) 3- Fair- Abduction 4- Good- Adduction 4- Good- External Rotation 3+ Fair+ Internal Rotation 4- Good- Right Flexion (L2) 4 Good Extension (S1) 3- Fair- Abduction 4 Good Adduction 4 Good External Rotation 4- Good- Internal Rotation 4- Good- Knee Strength Knee Manual Muscle Testing Left Flexion (S2) 4 Good Extension (L3) 4 Good Right Flexion (S2) 4 Good Extension (L3) 4 Good Ankle/Foot Strength Ankle and Foot Manual Muscle Testing Left Dorsiflexion (L4) 4+ Good+ Plantarflexion (S1) 4+ Good+ Right Dorsiflexion (L4) 4+ Good+ Plantarflexion (S1) 4+ Good+ Toe Strength Toe Manual Muscle Testing Left Great Toe Flexion 4- Good- Extension 4- Good- Right Great Toe Flexion 4+ Good+ Extension 4+ Good+ PT-OP-S Aquatic Treatment Start: 08/03/18 08:10 Freq: Status: Active Protocol: Document 10/02/18 10:15 JAMIN (Rec: 10/02/18 14:52 LJ [email or web address]) Aquatics Treatment Pool Entry/Exit Pool Entry/Exit Method Stairs Assistance Independent Water Walking stairs all directions Water Level Waist Level Comments 6 boxes lunge walking Water Level Waist Level Walking Equipment Ankle Floats Level of Assistance Standby Assistance Verbal Cues march, straight leg march Water Level Chest Level Walking Equipment Ankle Floats Level of Assistance Standby Assistance Verbal Cues fwd,bck,side Water Level Chest Level Walking Equipment Ankle Floats Level of Assistance Standby Assistance Verbal Cues Lower Extremity Exercises HS curls Details at wall Body Position Standing Water Level Chest Level Equipment Ankle Floats Reps/Duration 2x 15 HS curls and kickbacks Details at wall Body Position Prone Water Level Chest Level Equipment Ankle Floats CC,CCW Body Position Standing Water Level Chest Level Equipment Ankle Floats Reps/Duration 2 x 10 circles bilat, fast and slow; lg and sm Comments cues for core stab; Lower Extremity Stretches HC Reps/Duration at wall 2x 30 sec bilat hamstring, ITB, add Body Position Standing Water Level Chest Level Reps/Duration 2x 30' bilat Comments at wall Upper Extremity Exercises bicep, tricep Body Position Standing Water Level Chest Level Equipment UE paddles Comments cues for core stab lat pull down, IR/ER Body Position Standing Water Level Chest Level Equipment UE paddles Reps/Duration 15 bilat Comments cues for core stab hor ab/ad, flex/ext Water Level Chest Level Equipment UE paddles Reps/Duration 15x renato, Comments uni and bilat Upper Extremity Stretches walking w/paddles Reps/Duration 30 meters various depths [place] [employer] [place] [employer] Bicycle Cross Country Hip Abduction/Adduction Other Activities 30/30 x 6 intervals w/above exercises pendulums SLR in corner #2.5 wtson ankles Equipment none Duration 15 PT-OP-T Assessment and Plan Start: 08/03/18 08:10 Freq: Status: Active Protocol: Document 10/02/18 10:15 JAMIN (Rec: 10/02/18 14:52 JAMIN [id number]) Physical Therapy Assessment Rehab Potential Rehabilitation Potential Good Evaluation Complexity Number of Personal Factors/Comorbidities 3 or More Number of Body Systems Impaired 4 or More Clinical Presentation at Evaluation Evolving Impairments Impairments Activity Tolerance Gait Pain Strength Goals knowledge deficit Impairment no aquatic exercise program Short Term Goal (STG) Instruct patient in aquatic ex program; patient able to tolerate 45 min aquatic exercise without increase in pain STG Duration 09/14/18 Academic Affairs Dean Goal (LTG) Patient independent with aquatic exercise program for long-term pain management and fitness LTG Duration 11/01/18 Activity tolerance Impairment Oswestry disability index score 57% Short Term Goal (STG) Decrease Oswestry score to no greater than 45% STG Duration 09/14/18 Usp Goal (LTG) Decrease Oswestry score to no greater than 30% LTG Duration 11/01/18 antalgic gait Impairment antalgic gait Short Term Goal (STG) Patient to demonstrate 50% decrease in limp STG Duration 09/14/18 Usp Goal (LTG) Patient able to ambulate without significant limp LTG Duration 11/01/18 weakness Impairment decrease strength in trunk and LE's Short Term Goal (STG) increase strength by 1/2 grade throughout STG Duration 09/14/18 Usp Goal (LTG) Increase strength to at least 4+/5 throughout pain Impairment pain lumbar spine, LE's left greater than right Short Term Goal (STG) decrease pain by 25% STG Duration 09/14/18 Academic Affairs Dean Goal (LTG) Decrease pain by at least 50% LTG Duration 11/01/18 Assessment Summary Assessment Improving posture requiring fewer cues. Pt coordination better than previous sessions. Tolerance for increased intensity improving. Balance on boxes has improved with decreasing depth. Physical Therapy Plan Next Visit Focus/Plan Next Note Type Treatment Note Next Visit Plan Continue aquatic treatment. Increase intensity with deep water intervals. Focus on posterior chain and abdominal strengthening for improved activity tolerance and pain reduction
--- NOTE | 2018-10-05 08:12 | PT.OTN ---
Current Diagnoses Other intervertebral disc displacement, lumbar region (10/04/18) Physical Therapy Treatment Note PT-OP-A Visit Information Start: 08/03/18 08:10 Freq: Status: Active Protocol: Document 10/04/18 11:00 [facility] (Rec: 10/05/18 08:12 [facility] [id number]) Out-Patient Physical Therapy Visit Information Visit Information Visit Type Aquatic Treatment Note Visit Start Time 11:00 Visit Stop Time 11:45 Total Visit Minutes 45 Visit Number 11 Number of SUPERVISOR ROLLING ROOM Visits 0 PT-OP-B Current Condition Start: 08/03/18 08:10 Freq: Status: Active Protocol: Document 08/03/18 11:16 SAK (Rec: 08/03/18 11:58 [facility] [id number]) Current Condition History of Current Condition Onset Date 3 months Current Complaints LBP with radicular symptoms renato left greater than right History of Current Condition Reports function-limiting, worsening burning pain into left hip and left leg and numbness bilateral feet. Has fallen due to left leg giving way. Prior PT after all surgeries, but pain persists, worst in left leg. Now referred for aquatic PT. Prior Treatments and Tests October 2016 reattached all quad muscles back to right knee.(fell due to back pain, states a TKA has been recommended). History right LE cellulitis 05/11. January 2017 multilevel lumbar decompression L2-3, L3-4, and L4-5 stenosis 2018 tore rotator cuff left had surgical repair Treatment Goals Patient/Caregiver Goals Decrease pain, improve activity tolerance Prior Functional Status Baseline Function- ADL's Independent Baseline Function- Mobility Independent Baseline Function- Gait indep, no gait, Personal Factors Other Personal Factors That May Effect obesity Therapy/Recovery Cardiac history with angina, HTN PT-OP-C Subjective Start: 08/03/18 08:10 Freq: Status: Active Protocol: Document 10/04/18 11:00 [facility] (Rec: 10/05/18 08:12 [facility] [id number]) OP-PT Subjective Patient Comments Patient Comments States pain is much better than when he started PT, feeling stronger. Would like to schedule 1 further PT visit due to missing recent appointment due to his colonoscopy. Meets with oncologist today. PT-OP-G Mobility & Gait Start: 08/03/18 08:10 Freq: Status: Active Protocol: Document 08/03/18 11:16 SAK (Rec: 08/03/18 15:56 [facility] [id number]) OP Mobility Evaluation Transfers Sit to Stand painful Car Transfers painful Floor Transfers painful Functional Movements Lifting and Carrying painful Squats painful Running Assessment unable OP Gait Assessment Gait Gait Assistance Required: Independent Assistive Devices Assistive Device None Gait Deviations General Gait Pattern Antalgic Factors Limiting Gait Function Factors Limiting Gait Function Decreased Sensation Limited Range of Motion Pain PT-OP-H Neuro Start: 08/03/18 08:10 Freq: Status: Active Protocol: Document 08/03/18 11:16 [facility] (Rec: 08/03/18 15:56 [facility] [id number]) Sensation Evaluation Gross Sensation Gross Sensation Left LE Impaired Sensation Description Paresthesia Dermatome Impairments L4 L5 S1 Deep Tendon Reflex & Clonus Assessment Deep Tendon Reflex Bilateral Achilles Deep Tendon Reflex 0 Absent Bilateral Patellar Deep Tendon Reflex 0 Absent PT-OP-J Posture/Palpation/Skin Start: 08/03/18 08:10 Freq: Status: Active Protocol: Document 08/03/18 11:16 [facility] (Rec: 08/03/18 15:56 [facility] [id number]) Posture Evaluation Comments Posture Comments forward head, increased thoracic kyphosis and lumbar lordosis. Palpation Assessment Location piriformis Palpation Location bilateral Palpation Findings Soft Tissue Tightness Tenderness PT-OP-K Range of Motion Start: 08/03/18 08:10 Freq: Status: Active Protocol: Document 08/03/18 11:16 [facility] (Rec: 08/03/18 15:37 [facility] [id number]) Lumbar Spine Range of Motion Lumbar Spine Active Testing Position Standing Flexion 30 Extension 20 Lateral Flexion Left 30 Lateral Flexion Right 30 ROM Limitations Soft Tissue Tightness Pain Hip Goniometric Range of Motion Hip Measured in Degrees Left Testing Position Supine Flexion w/Knee Flexed 100 Straight Leg Raise 50 Extension 0 Abduction 25 Internal Rotation 10 External Rotation 40 Right Testing Position Supine Flexion w/Knee Flexed 100 Straight Leg Raise 45 Extension 0 Abduction 30 Internal Rotation 20 External Rotation 45 Hip ROM Limitations Hip ROM Limitations Soft Tissue Tightness Pain Knee Goniometric Range of Motion Knee Measured in Degrees Left Knee ROM WFL Yes Right Knee ROM WFL No Patient Position Supine Flexion Active (degrees) 95 Extension Active (degrees) 8 Extension Passive (degrees) 0 Ankle and Foot Goniometric Range of Motion Ankle and Foot Measured in Degrees renato Dorsiflexion with Knee Flexed 5 Dorsiflexion with Knee Extended 0 Plantarflexion 40 Ankle and Foot ROM Limitations ROM Limitations Soft Tissue Tightness PT-OP-L Special Tests Start: 08/03/18 08:10 Freq: Status: Active Protocol: Document 08/03/18 11:16 [facility] (Rec: 08/03/18 15:56 [facility] [id number]) Special Tests Lumbar Spine Special Tests Straight Leg Raise Test Results positive left PT-OP-M Strength Start: 08/03/18 08:10 Freq: Status: Active Protocol: Document 08/03/18 11:16 [facility] (Rec: 08/03/18 15:37 [facility] [id number]) Trunk Strength Trunk Manual Muscle Testing Flexion 3+ Fair+ Extension 3+ Fair+ Core Stabilization poor Hip Strength Hip Manual Muscle Testing Left Flexion (L2) 4- Good- Extension (S1) 3- Fair- Abduction 4- Good- Adduction 4- Good- External Rotation 3+ Fair+ Internal Rotation 4- Good- Right Flexion (L2) 4 Good Extension (S1) 3- Fair- Abduction 4 Good Adduction 4 Good External Rotation 4- Good- Internal Rotation 4- Good- Knee Strength Knee Manual Muscle Testing Left Flexion (S2) 4 Good Extension (L3) 4 Good Right Flexion (S2) 4 Good Extension (L3) 4 Good Ankle/Foot Strength Ankle and Foot Manual Muscle Testing Left Dorsiflexion (L4) 4+ Good+ Plantarflexion (S1) 4+ Good+ Right Dorsiflexion (L4) 4+ Good+ Plantarflexion (S1) 4+ Good+ Toe Strength Toe Manual Muscle Testing Left Great Toe Flexion 4- Good- Extension 4- Good- Right Great Toe Flexion 4+ Good+ Extension 4+ Good+ PT-OP-S Aquatic Treatment Start: 08/03/18 08:10 Freq: Status: Active Protocol: Document 10/04/18 11:00 [facility] (Rec: 10/05/18 08:12 [facility] [id number]) Aquatics Treatment Pool Entry/Exit Pool Entry/Exit Method Stairs Assistance Independent Water Walking stairs all directions Water Level Waist Level Comments 6 boxes lunge walking Water Level Waist Level Walking Equipment Resistance Fins Level of Assistance Standby Assistance Verbal Cues march, straight leg march Water Level Chest Level Walking Equipment Resistance Fins Level of Assistance Standby Assistance Verbal Cues fwd,bck,side Water Level Chest Level Walking Equipment Resistance Fins Level of Assistance Standby Assistance Verbal Cues Lower Extremity Exercises HS curls and kickbacks Details at wall Body Position Prone Water Level Chest Level Equipment Resistance Fins CC,CCW Body Position Standing Water Level Chest Level Equipment Resistance Fins Reps/Duration 2 x 10 circles bilat, fast and slow; lg and sm Comments cues for core stab; hip flex/ext, ab/ad Body Position Standing Water Level Chest Level Equipment Resistance Fins Reps/Duration 15x ROM x 2 sets Lower Extremity Stretches HC Reps/Duration at wall 2x 30 sec bilat hamstring, ITB, add Body Position Standing Water Level Chest Level Equipment Large Noodle Reps/Duration 2x 30' bilat Comments at wall Upper Extremity Exercises bicep, tricep Body Position Standing Water Level Chest Level Equipment UE paddles Comments cues for core stab lat pull down, IR/ER Body Position Standing Water Level Chest Level Equipment UE paddles Reps/Duration 15 bilat Comments cues for core stab hor ab/ad, flex/ext Water Level Chest Level Equipment UE paddles Reps/Duration 15x renato, Comments uni and bilat [employer] [employer] Bicycle Bicycle Backwards Cross Country Running Hip Abduction/Adduction Other Activities pendulums SLR in corner #2.5 wtson ankles Equipment resistance fins Duration 15 PT-OP-T Assessment and Plan Start: 08/03/18 08:10 Freq: Status: Active Protocol: Document 10/04/18 11:00 [facility] (Rec: 10/05/18 08:12 [facility] [id number]) Physical Therapy Assessment Goals knowledge deficit Impairment no aquatic exercise program Short Term Goal (STG) Instruct patient in aquatic ex program; patient able to tolerate 45 min aquatic exercise without increase in pain goal MET STG Duration Goal MET [facility] Goal (LTG) Patient independent with aquatic exercise program for long-term pain management and fitness (good progress) LTG Duration 11/01/18 Activity tolerance Impairment Oswestry disability index score 57% Short Term Goal (STG) Decrease Oswestry score to no greater than 45% STG Duration Goal MET Family Dinner Service Specialist Goal (LTG) Decrease Oswestry score to no greater than 30% LTG Duration 11/01/18 antalgic gait Impairment antalgic gait Short Term Goal (STG) Patient to demonstrate 50% decrease in limp STG Duration Goal Met [facility] Goal (LTG) Patient able to ambulate without significant limp(good progress) LTG Duration 11/01/18 weakness Impairment decrease strength in trunk and LE's Short Term Goal (STG) increase strength by 1/2 grade throughout STG Duration Goal MET [facility] Goal (LTG) Increase strength to at least 4+/5 throughout (good goal progress) LTG Duration pain Impairment pain lumbar spine, LE's left greater than right Short Term Goal (STG) decrease pain by 2 STG Duration Goal MET [facility] Home Goal (LTG) Decrease pain by at least 50% (good goal progress) LTG Duration 11/01/18 Assessment Summary Assessment Patient continues to make good progress. Would benefit from 1 further aquatic therapy session, issue written handouts and assure safety and independence with aquatic exercise program. Good tolerance for addition of resistance fins. Physical Therapy Plan Next Visit Focus/Plan Next Note Type Treatment Note Next Visit Plan anticipate 1 further aquatic therapy session, transition to [facility] aquatic exercise program.
--- NOTE | 2018-10-05 08:17 | PT.OPPN ---
Current Diagnoses Other intervertebral disc displacement, lumbar region (10/04/18) Physical Therapy Progress Note PT-OP-A Visit Information Start: 08/03/18 08:10 Freq: Status: Active Protocol: Document 10/04/18 11:[address] [facility] (Rec: 10/05/18 08:[address] [facility] [id number]) Out-Patient Physical Therapy Visit Information Visit Information Visit Type Aquatic Treatment Note Visit Start Time 11:00 Visit Stop Time 11:45 Total Visit Minutes 45 Visit Number 11 Number of IT SERVICE DELIVERY MANAGER Visits 0 PT-OP-B Current Condition Start: 08/03/18 08:10 Freq: Status: Active Protocol: Document 08/03/18 11:16 [facility] (Rec: 08/03/18 11:[address] [facility] [id number]) Current Condition History of Current Condition Onset Date 3 months Current Complaints LBP with radicular symptoms renato left greater than right History of Current Condition Reports function-limiting, worsening burning pain into left hip and left leg and numbness bilateral feet. Has fallen due to left leg giving way. Prior PT after all surgeries, but pain persists, worst in left leg. Now referred for aquatic PT. Prior Treatments and Tests October 2016 reattached all quad muscles back to right knee.(fell due to back pain, states a TKA has been recommended). History right LE cellulitis 05/11. January 2017 multilevel lumbar decompression L2-3, L3-4, and L4-5 stenosis 2018 tore rotator cuff left had surgical repair Treatment Goals Patient/Caregiver Goals Decrease pain, improve activity tolerance Prior Functional Status Baseline Function- ADL's Independent Baseline Function- Mobility Independent Baseline Function- Gait indep, no gait, Personal Factors Other Personal Factors That May Effect obesity Therapy/Recovery Cardiac history with angina, HTN PT-OP-C Subjective Start: 08/03/18 08:10 Freq: Status: Active Protocol: Document 10/04/18 11:[address] [facility] (Rec: 10/05/18 08:[address] [facility] [id number]) OP-PT Subjective Patient Comments Patient Comments States pain is much better than when he started PT, feeling stronger. Would like to schedule 1 further PT visit due to missing recent appointment due to his colonoscopy. Meets with oncologist today. PT-OP-G Mobility & Gait Start: 08/03/18 08:10 Freq: Status: Active Protocol: Document 08/03/18 11:16 [facility] (Rec: 08/03/18 15:[address] [facility] [id number]) OP Mobility Evaluation Transfers Sit to Stand painful Car Transfers painful Floor Transfers painful Functional Movements Lifting and Carrying painful Squats painful Running Assessment unable OP Gait Assessment Gait Gait Assistance Required: Independent Assistive Devices Assistive Device None Gait Deviations General Gait Pattern Antalgic Factors Limiting Gait Function Factors Limiting Gait Function Decreased Sensation Limited Range of Motion Pain PT-OP-H Neuro Start: 08/03/18 08:10 Freq: Status: Active Protocol: Document 08/03/18 11:[address] [facility] (Rec: 08/03/18 15:[address] [facility] [id number]) Sensation Evaluation Gross Sensation Gross Sensation Left LE Impaired Sensation Description Paresthesia Dermatome Impairments L4 L5 S1 Deep Tendon Reflex & Clonus Assessment Deep Tendon Reflex Bilateral Achilles Deep Tendon Reflex 0 Absent Bilateral Patellar Deep Tendon Reflex 0 Absent PT-OP-J Posture/Palpation/Skin Start: 08/03/18 08:10 Freq: Status: Active Protocol: Document 08/03/18 11:[address] [facility] (Rec: 08/03/18 15:[address] [facility] [id number]) Posture Evaluation Comments Posture Comments forward head, increased thoracic kyphosis and lumbar lordosis. Palpation Assessment Location piriformis Palpation Location bilateral Palpation Findings Soft Tissue Tightness Tenderness PT-OP-K Range of Motion Start: 08/03/18 08:10 Freq: Status: Active Protocol: Document 08/03/18 11:[address] [facility] (Rec: 08/03/18 15:[address] [facility] [id number]) Lumbar Spine Range of Motion Lumbar Spine Active Testing Position Standing Flexion 30 Extension 20 Lateral Flexion Left 30 Lateral Flexion Right 30 ROM Limitations Soft Tissue Tightness Pain Hip Goniometric Range of Motion Hip Measured in Degrees Left Testing Position Supine Flexion w/Knee Flexed 100 Straight Leg Raise 50 Extension 0 Abduction 25 Internal Rotation 10 External Rotation 40 Right Testing Position Supine Flexion w/Knee Flexed 100 Straight Leg Raise 45 Extension 0 Abduction 30 Internal Rotation 20 External Rotation 45 Hip ROM Limitations Hip ROM Limitations Soft Tissue Tightness Pain Knee Goniometric Range of Motion Knee Measured in Degrees Left Knee ROM WFL Yes Right Knee ROM WFL No Patient Position Supine Flexion Active (degrees) 95 Extension Active (degrees) 8 Extension Passive (degrees) 0 Ankle and Foot Goniometric Range of Motion Ankle and Foot Measured in Degrees renato Dorsiflexion with Knee Flexed 5 Dorsiflexion with Knee Extended 0 Plantarflexion 40 Ankle and Foot ROM Limitations ROM Limitations Soft Tissue Tightness PT-OP-L Special Tests Start: 08/03/18 08:10 Freq: Status: Active Protocol: Document 08/03/18 11:[address] [facility] (Rec: 08/03/18 15:[address] [facility] [id number]) Special Tests Lumbar Spine Special Tests Straight Leg Raise Test Results positive left PT-OP-M Strength Start: 08/03/18 08:10 Freq: Status: Active Protocol: Document 08/03/18 11:[address] [facility] (Rec: 08/03/18 15:[address] [facility] [id number]) Trunk Strength Trunk Manual Muscle Testing Flexion 3+ Fair+ Extension 3+ Fair+ Core Stabilization poor Hip Strength Hip Manual Muscle Testing Left Flexion (L2) 4- Good- Extension (S1) 3- Fair- Abduction 4- Good- Adduction 4- Good- External Rotation 3+ Fair+ Internal Rotation 4- Good- Right Flexion (L2) 4 Good Extension (S1) 3- Fair- Abduction 4 Good Adduction 4 Good External Rotation 4- Good- Internal Rotation 4- Good- Knee Strength Knee Manual Muscle Testing Left Flexion (S2) 4 Good Extension (L3) 4 Good Right Flexion (S2) 4 Good Extension (L3) 4 Good Ankle/Foot Strength Ankle and Foot Manual Muscle Testing Left Dorsiflexion (L4) 4+ Good+ Plantarflexion (S1) 4+ Good+ Right Dorsiflexion (L4) 4+ Good+ Plantarflexion (S1) 4+ Good+ Toe Strength Toe Manual Muscle Testing Left Great Toe Flexion 4- Good- Extension 4- Good- Right Great Toe Flexion 4+ Good+ Extension 4+ Good+ PT-OP-T Assessment and Plan Start: 08/03/18 08:10 Freq: Status: Active Protocol: Document 10/04/18 11:[address] [facility] (Rec: 10/05/18 08:[address] [facility] [id number]) Physical Therapy Assessment Goals knowledge deficit Impairment no aquatic exercise program Short Term Goal (STG) Instruct patient in aquatic ex program; patient able to tolerate 45 min aquatic exercise without increase in pain goal MET STG Duration Goal MET Retirement Goal (LTG) Patient independent with aquatic exercise program for long-term pain management and fitness (good progress) LTG Duration 11/01/18 Activity tolerance Impairment Oswestry disability index score 57% Short Term Goal (STG) Decrease Oswestry score to no greater than 45% STG Duration Goal MET Retirement Goal (LTG) Decrease Oswestry score to no greater than 30% LTG Duration 11/01/18 antalgic gait Impairment antalgic gait Short Term Goal (STG) Patient to demonstrate 50% decrease in limp STG Duration Goal Met College Associate Goal (LTG) Patient able to ambulate without significant limp(good progress) LTG Duration 11/01/18 weakness Impairment decrease strength in trunk and LE's Short Term Goal (STG) increase strength by 1/2 grade throughout STG Duration Goal MET College Associate Goal (LTG) Increase strength to at least 4+/5 throughout (good goal progress) LTG Duration pain Impairment pain lumbar spine, LE's left greater than right Short Term Goal (STG) decrease pain by 2 STG Duration Goal MET College Associate Goal (LTG) Decrease pain by at least 50% (good goal progress) LTG Duration 11/01/18 Assessment Summary Assessment Patient continues to make good progress. Would benefit from 1 further aquatic therapy session, issue written handouts and assure safety and independence with aquatic exercise program. Good tolerance for addition of resistance fins. Physical Therapy Plan Next Visit Focus/Plan Next Note Type Treatment Note Next Visit Plan anticipate 1 further aquatic therapy session, [facility].
--- NOTE | 2018-10-27 15:04 | PT.OTN ---
Current Diagnoses Other intervertebral disc displacement, lumbar region (10/27/18) Physical Therapy Treatment Note PT-OP-A Visit Information Start: 08/03/18 08:10 Freq: Status: Active Protocol: Document 10/27/18 14:59 [facility] (Rec: 10/27/18 15:04 [facility] [id number]) Out-Patient Physical Therapy Visit Information Visit Information Visit Type Aquatic Treatment Note Visit Start Time 11:00 Visit Stop Time 11:45 Total Visit Minutes 45 Visit Number 12 Number of DAIRY WORKER Visits 0 PT-OP-B Current Condition Start: 08/03/18 08:10 Freq: Status: Active Protocol: Document 08/03/18 11:16 [facility] (Rec: 08/03/18 11:58 [facility] [id number]) Current Condition History of Current Condition Onset Date 3 months Current Complaints LBP with radicular symptoms renato left greater than right History of Current Condition Reports function-limiting, worsening burning pain into left hip and left leg and numbness bilateral feet. Has fallen due to left leg giving way. Prior PT after all surgeries, but pain persists, worst in left leg. Now referred for aquatic PT. Prior Treatments and Tests October 2016 reattached all quad muscles back to right knee.(fell due to back pain, states a TKA has been recommended). History right LE cellulitis 05/11. January 2017 multilevel lumbar decompression L2-3, L3-4, and L4-5 stenosis 2018 tore rotator cuff left had surgical repair Treatment Goals Patient/Caregiver Goals Decrease pain, improve activity tolerance Prior Functional Status Baseline Function- ADL's Independent Baseline Function- Mobility Independent Baseline Function- Gait indep, no gait, Personal Factors Other Personal Factors That May Effect obesity Therapy/Recovery Cardiac history with angina, HTN PT-OP-C Subjective Start: 08/03/18 08:10 Freq: Status: Active Protocol: Document 10/27/18 14:59 [facility] (Rec: 10/27/18 15:04 [facility] [id number]) OP-PT Subjective Patient Comments Patient Comments Patient states he will be having surgery to remove a portion of his large intestine 10/06/18. Has one more PT appointment scheduled 10/01/18, then when able to get back in the pool will continue aquatic exercises on his own. PT-OP-G Mobility & Gait Start: 08/03/18 08:10 Freq: Status: Active Protocol: Document 08/03/18 11:16 [facility] (Rec: 08/03/18 15:56 [facility] [id number]) OP Mobility Evaluation Transfers Sit to Stand painful Car Transfers painful Floor Transfers painful Functional Movements Lifting and Carrying painful Squats painful Running Assessment unable OP Gait Assessment Gait Gait Assistance Required: Independent Assistive Devices Assistive Device None Gait Deviations General Gait Pattern Antalgic Factors Limiting Gait Function Factors Limiting Gait Function Decreased Sensation Limited Range of Motion Pain PT-OP-H Neuro Start: 08/03/18 08:10 Freq: Status: Active Protocol: Document 08/03/18 11:16 [facility] (Rec: 08/03/18 15:56 [facility] [id number]) Sensation Evaluation Gross Sensation Gross Sensation Left LE Impaired Sensation Description Paresthesia Dermatome Impairments L4 L5 S1 Deep Tendon Reflex & Clonus Assessment Deep Tendon Reflex Bilateral Achilles Deep Tendon Reflex 0 Absent Bilateral Patellar Deep Tendon Reflex 0 Absent PT-OP-J Posture/Palpation/Skin Start: 08/03/18 08:10 Freq: Status: Active Protocol: Document 08/03/18 11:16 [facility] (Rec: 08/03/18 15:56 [facility] [id number]) Posture Evaluation Comments Posture Comments forward head, increased thoracic kyphosis and lumbar lordosis. Palpation Assessment Location piriformis Palpation Location bilateral Palpation Findings Soft Tissue Tightness Tenderness PT-OP-K Range of Motion Start: 08/03/18 08:10 Freq: Status: Active Protocol: Document 08/03/18 11:16 [facility] (Rec: 08/03/18 15:37 [facility] [id number]) Lumbar Spine Range of Motion Lumbar Spine Active Testing Position Standing Flexion 30 Extension 20 Lateral Flexion Left 30 Lateral Flexion Right 30 ROM Limitations Soft Tissue Tightness Pain Hip Goniometric Range of Motion Hip Measured in Degrees Left Testing Position Supine Flexion w/Knee Flexed 100 Straight Leg Raise 50 Extension 0 Abduction 25 Internal Rotation 10 External Rotation 40 Right Testing Position Supine Flexion w/Knee Flexed 100 Straight Leg Raise 45 Extension 0 Abduction 30 Internal Rotation 20 External Rotation 45 Hip ROM Limitations Hip ROM Limitations Soft Tissue Tightness Pain Knee Goniometric Range of Motion Knee Measured in Degrees Left Knee ROM WFL Yes Right Knee ROM WFL No Patient Position Supine Flexion Active (degrees) 95 Extension Active (degrees) 8 Extension Passive (degrees) 0 Ankle and Foot Goniometric Range of Motion Ankle and Foot Measured in Degrees renato Dorsiflexion with Knee Flexed 5 Dorsiflexion with Knee Extended 0 Plantarflexion 40 Ankle and Foot ROM Limitations ROM Limitations Soft Tissue Tightness PT-OP-L Special Tests Start: 08/03/18 08:10 Freq: Status: Active Protocol: Document 08/03/18 11:16 [facility] (Rec: 08/03/18 15:56 [facility] [id number]) Special Tests Lumbar Spine Special Tests Straight Leg Raise Test Results positive left PT-OP-M Strength Start: 08/03/18 08:10 Freq: Status: Active Protocol: Document 08/03/18 11:16 [facility] (Rec: 08/03/18 15:37 [facility] [id number]) Trunk Strength Trunk Manual Muscle Testing Flexion 3+ Fair+ Extension 3+ Fair+ Core Stabilization poor Hip Strength Hip Manual Muscle Testing Left Flexion (L2) 4- Good- Extension (S1) 3- Fair- Abduction 4- Good- Adduction 4- Good- External Rotation 3+ Fair+ Internal Rotation 4- Good- Right Flexion (L2) 4 Good Extension (S1) 3- Fair- Abduction 4 Good Adduction 4 Good External Rotation 4- Good- Internal Rotation 4- Good- Knee Strength Knee Manual Muscle Testing Left Flexion (S2) 4 Good Extension (L3) 4 Good Right Flexion (S2) 4 Good Extension (L3) 4 Good Ankle/Foot Strength Ankle and Foot Manual Muscle Testing Left Dorsiflexion (L4) 4+ Good+ Plantarflexion (S1) 4+ Good+ Right Dorsiflexion (L4) 4+ Good+ Plantarflexion (S1) 4+ Good+ Toe Strength Toe Manual Muscle Testing Left Great Toe Flexion 4- Good- Extension 4- Good- Right Great Toe Flexion 4+ Good+ Extension 4+ Good+ PT-OP-S Aquatic Treatment Start: 08/03/18 08:10 Freq: Status: Active Protocol: Document 10/27/18 14:59 [facility] (Rec: 10/27/18 15:04 [facility] [id number]) Aquatics Treatment Pool Entry/Exit Pool Entry/Exit Method Stairs Assistance Independent Water Walking lunge walking Water Level Waist Level Walking Equipment Resistance Fins Level of Assistance Standby Assistance Verbal Cues march, straight leg september Water Level Chest Level Walking Equipment Resistance Fins Level of Assistance Standby Assistance Verbal Cues fwd,bck,side Water Level Chest Level Walking Equipment Resistance Fins Level of Assistance Standby Assistance Verbal Cues Lower Extremity Exercises CC,CCW Body Position Standing Water Level Chest Level Equipment Resistance Fins Reps/Duration 2 x 10 circles bilat, fast and slow; lg and sm Comments cues for core stab; hip flex/ext, ab/ad Body Position Standing Water Level Chest Level Equipment Resistance Fins Reps/Duration 15x ROM x 2 sets Lower Extremity Stretches HC Reps/Duration at wall 2x 30 sec bilat hamstring, ITB, add Body Position Standing Water Level Chest Level Equipment Large Noodle Reps/Duration 2x 30' bilat Comments at wall [place] Activities [place] Activities Bicycle Bicycle Backwards [place] Running Hip Abduction/Adduction Other Activities Water jog holding large barbells underwater Deep water DLS with large barbells Deep water hang with 5# renato Equipment resistance fins Duration 20 PT-OP-T Assessment and Plan Start: 08/03/18 08:10 Freq: Status: Active Protocol: Document 10/27/18 14:59 [facility] (Rec: 10/27/18 15:04 [facility] [id number]) Physical Therapy Assessment Goals knowledge deficit Impairment no aquatic exercise program Short Term Goal (STG) Instruct patient in aquatic ex program; patient able to tolerate 45 min aquatic exercise without increase in pain goal MET STG Duration Goal MET F[employer]or Goal (LTG) Patient independent with aquatic exercise program for long-term pain management and fitness (good progress) LTG Duration 11/01/18 Activity tolerance Impairment Oswestry disability index score 57% Short Term Goal (STG) Decrease Oswestry score to no greater than 45% STG Duration Goal MET [place]or Goal (LTG) Decrease Oswestry score to no greater than 30% LTG Duration 11/01/18 antalgic gait Impairment antalgic gait Short Term Goal (STG) Patient to demonstrate 50% decrease in limp STG Duration Goal Met Detention Goal (LTG) Patient able to ambulate without significant limp(good progress) LTG Duration 11/01/18 weakness Impairment decrease strength in trunk and LE's Short Term Goal (STG) increase strength by 1/2 grade throughout STG Duration Goal MET F[employer]or Goal (LTG) Increase strength to at least 4+/5 throughout (good goal progress) LTG Duration pain Impairment pain lumbar spine, LE's left greater than right Short Term Goal (STG) decrease pain by 2 STG Duration Goal MET Detention Goal (LTG) Decrease pain by at least 50% (good goal progress) LTG Duration 11/01/18 Assessment Summary Assessment trial deep water traction today due to continued tingling in LE's. Good tolerance for ther ex though tends to push himself and have difficulty with cues for performance correction. Physical Therapy Plan Next Visit Focus/Plan Next Note Type Treatment Note Next Visit Plan 1 further aquatic PT session then discharge to independent aquatic exercise program.
--- NOTE | 2018-11-01 13:39 | PT.OTN ---
Current Diagnoses Other intervertebral disc displacement, lumbar region (11/01/18) Physical Therapy Treatment Note PT-OP-A Visit Information Start: 08/03/18 08:10 Freq: Status: Active Protocol: Document 11/02/18 13:[address] [facility] (Rec: 11/02/18 13:[address] [facility] [id number]) Out-Patient Physical Therapy Visit Information Visit Information Visit Type Aquatic Treatment Note Visit Start Time 10:15 Visit Stop Time 11:00 Total Visit Minutes 45 Visit Number 13 Number of SITE IDENTIFICATION SPECIALIST Visits 0 PT-OP-B Current Condition Start: 08/03/18 08:10 Freq: Status: Active Protocol: Document 08/03/18 11:16 [facility] (Rec: 08/03/18 11:58 [facility] [id number]) Current Condition History of Current Condition Onset Date 3 months Current Complaints LBP with radicular symptoms burke left greater than right History of Current Condition Reports function-limiting, worsening burning pain into left hip and left leg and numbness bilateral feet. Has fallen due to left leg giving way. Prior PT after all surgeries, but pain persists, worst in left leg. Now referred for aquatic PT. Prior Treatments and Tests October 2016 reattached all quad muscles back to right knee.(fell due to back pain, states a TKA has been recommended). History right LE cellulitis 05/11. January 2017 multilevel lumbar decompression L2-3, L3-4, and L4-5 stenosis 2018 tore rotator cuff left had surgical repair Treatment Goals Patient/Caregiver Goals Decrease pain, improve activity tolerance Prior Functional Status Baseline Function- ADL's Independent Baseline Function- Mobility Independent Baseline Function- Gait indep, no gait, Personal Factors Other Personal Factors That May Effect obesity Therapy/Recovery Cardiac history with angina, HTN PT-OP-C Subjective Start: 08/03/18 08:10 Freq: Status: Active Protocol: Document 11/02/18 13:33 [facility] (Rec: 11/02/18 13:[address] [facility] [id number]) OP-PT Subjective Patient Comments Patient Comments Agreeable to today being last PT treatment at this time. May want to return for further PT after recovery from his intestinal surgery depending on how he is feeling. Feels comfortable with current aquatic exercise program. PT-OP-G Mobility & Gait Start: 08/03/18 08:10 Freq: Status: Active Protocol: Document 08/03/18 11:16 [facility] (Rec: 08/03/18 15:[address] [facility] [id number]) OP Mobility Evaluation Transfers Sit to Stand painful Car Transfers painful Floor Transfers painful Functional Movements Lifting and Carrying painful Squats painful Running Assessment unable OP Gait Assessment Gait Gait Assistance Required: Independent Assistive Devices Assistive Device None Gait Deviations General Gait Pattern Antalgic Factors Limiting Gait Function Factors Limiting Gait Function Decreased Sensation Limited Range of Motion Pain PT-OP-H Neuro Start: 08/03/18 08:10 Freq: Status: Active Protocol: Document 08/03/18 11:[address] [facility] (Rec: 08/03/18 15:[address] [facility] [id number]) Sensation Evaluation Gross Sensation Gross Sensation Left LE Impaired Sensation Description Paresthesia Dermatome Impairments L4 L5 S1 Deep Tendon Reflex & Clonus Assessment Deep Tendon Reflex Bilateral Achilles Deep Tendon Reflex 0 Absent Bilateral Patellar Deep Tendon Reflex 0 Absent PT-OP-J Posture/Palpation/Skin Start: 08/03/18 08:10 Freq: Status: Active Protocol: Document 08/03/18 11:[address] [facility] (Rec: 08/03/18 15:[address] [facility] [id number]) Posture Evaluation Comments Posture Comments forward head, increased thoracic kyphosis and lumbar lordosis. Palpation Assessment Location piriformis Palpation Location bilateral Palpation Findings Soft Tissue Tightness Tenderness PT-OP-K Range of Motion Start: 08/03/18 08:10 Freq: Status: Active Protocol: Document 08/03/18 11:[address] [facility] (Rec: 08/03/18 15:[address] [facility] [id number]) Lumbar Spine Range of Motion Lumbar Spine Active Testing Position Standing Flexion 30 Extension 20 Lateral Flexion Left 30 Lateral Flexion Right 30 ROM Limitations Soft Tissue Tightness Pain Hip Goniometric Range of Motion Hip Measured in Degrees Left Testing Position Supine Flexion w/Knee Flexed 100 Straight Leg Raise 50 Extension 0 Abduction 25 Internal Rotation 10 External Rotation 40 Right Testing Position Supine Flexion w/Knee Flexed 100 Straight Leg Raise 45 Extension 0 Abduction 30 Internal Rotation 20 External Rotation 45 Hip ROM Limitations Hip ROM Limitations Soft Tissue Tightness Pain Knee Goniometric Range of Motion Knee Measured in Degrees Left Knee ROM WFL Yes Right Knee ROM WFL No Patient Position Supine Flexion Active (degrees) 95 Extension Active (degrees) 8 Extension Passive (degrees) 0 Ankle and Foot Goniometric Range of Motion Ankle and Foot Measured in Degrees burke Dorsiflexion with Knee Flexed 5 Dorsiflexion with Knee Extended 0 Plantarflexion 40 Ankle and Foot ROM Limitations ROM Limitations Soft Tissue Tightness PT-OP-L Special Tests Start: 08/03/18 08:10 Freq: Status: Active Protocol: Document 08/03/18 11:[address] [facility] (Rec: 08/03/18 15:[address] [facility] [id number]) Special Tests Lumbar Spine Special Tests Straight Leg Raise Test Results positive left PT-OP-M Strength Start: 08/03/18 08:10 Freq: Status: Active Protocol: Document 08/03/18 11:[address] [facility] (Rec: 08/03/18 15:[address] [facility] [id number]) Trunk Strength Trunk Manual Muscle Testing Flexion 3+ Fair+ Extension 3+ Fair+ Core Stabilization poor Hip Strength Hip Manual Muscle Testing Left Flexion (L2) 4- Good- Extension (S1) 3- Fair- Abduction 4- Good- Adduction 4- Good- External Rotation 3+ Fair+ Internal Rotation 4- Good- Right Flexion (L2) 4 Good Extension (S1) 3- Fair- Abduction 4 Good Adduction 4 Good External Rotation 4- Good- Internal Rotation 4- Good- Knee Strength Knee Manual Muscle Testing Left Flexion (S2) 4 Good Extension (L3) 4 Good Right Flexion (S2) 4 Good Extension (L3) 4 Good Ankle/Foot Strength Ankle and Foot Manual Muscle Testing Left Dorsiflexion (L4) 4+ Good+ Plantarflexion (S1) 4+ Good+ Right Dorsiflexion (L4) 4+ Good+ Plantarflexion (S1) 4+ Good+ Toe Strength Toe Manual Muscle Testing Left Great Toe Flexion 4- Good- Extension 4- Good- Right Great Toe Flexion 4+ Good+ Extension 4+ Good+ PT-OP-S Aquatic Treatment Start: 08/03/18 08:10 Freq: Status: Active Protocol: Document 11/02/18 13:[address] [facility] (Rec: 11/02/18 13:[address] [facility] [id number]) Aquatics Treatment Pool Entry/Exit Pool Entry/Exit Method Stairs Assistance Independent Water Walking stairs all directions Water Level Waist Level Comments 6 boxes lunge walking Water Level Waist Level Walking Equipment Resistance Fins Level of Assistance Standby Assistance Verbal Cues march, straight leg march Water Level Chest Level Walking Equipment Resistance Fins Level of Assistance Standby Assistance Verbal Cues fwd,bck,side Water Level Chest Level Walking Equipment Resistance Fins Level of Assistance Standby Assistance Verbal Cues Lower Extremity Exercises HS curls Details at wall Body Position Standing Water Level Chest Level Equipment Ankle Floats Reps/Duration 2x 15 CC,CCW Body Position Standing Water Level Chest Level Equipment Resistance Fins Reps/Duration 2 x 10 circles bilat, fast and slow; lg and sm Comments cues for core stab; hip flex/ext, ab/ad Body Position Standing Water Level Chest Level Equipment Resistance Fins Reps/Duration 15x ROM x 2 sets Lower Extremity Stretches HC Reps/Duration at wall 2x 30 sec bilat hamstring, ITB, add Body Position Standing Water Level Chest Level Equipment Large Noodle Reps/Duration 2x 30' bilat Comments at wall Upper Extremity Exercises bicep, tricep Body Position Standing Water Level Chest Level Equipment UE paddles Comments cues for core stab lat pull down, IR/ER Body Position Standing Water Level Chest Level Equipment UE paddles Reps/Duration 15 bilat Comments cues for core stab hor ab/ad, flex/ext Water Level Chest Level Equipment UE paddles Reps/Duration 15x burke, Comments uni and bilat Spinal Exercises deep water hang Body Position Standing Water Level [place] Equipment 7 # BURKE LE'S Reps/Duration 10 MIN Comments [place] float [place] Activities [place] Activities Bicycle Bicycle Backwards [place] Running Hip Abduction/Adduction Other Activities Water jog holding large barbells underwater Deep water DLS with large barbells Deep water hang with 5# burke Equipment resistance fins Duration 20 PT-OP-T Assessment and Plan Start: 08/03/18 08:10 Freq: Status: Active Protocol: Document 11/02/18 13:[address] [facility] (Rec: 11/02/18 13:[address] [facility] [id number]) Physical Therapy Assessment Goals knowledge deficit Impairment no aquatic exercise program Short Term Goal (STG) Instruct patient in aquatic ex program; patient able to tolerate 45 min aquatic exercise without increase in pain goal MET STG Duration Goal MET Nursing Home Goal (LTG) Patient independent with aquatic exercise program for long-term pain management and fitness (good progress) LTG Duration GOAL MET 11/01/18 Activity tolerance Impairment Oswestry disability index score 57% Short Term Goal (STG) Decrease Oswestry score to no greater than 45% STG Duration Goal MET Nursing Home Goal (LTG) Decrease Oswestry score to no greater than 30% 11/01/18: GOAL PROGRESS LTG Duration 11/01/18 antalgic gait Impairment antalgic gait Short Term Goal (STG) Patient to demonstrate 50% decrease in limp STG Duration Goal Met Nursing Home Goal (LTG) Patient able to ambulate without significant limp(good progress) 11/01/18 GOOD PROGRESS LTG Duration 11/01/18 weakness Impairment decrease strength in trunk and LE's Short Term Goal (STG) increase strength by 1/2 grade throughout STG Duration Goal MET Horse Doctor Goal (LTG) Increase strength to at least 4+/5 throughout (good goal progress) 11/01/18: GOOD GOAL PROGRESS LTG Duration pain Impairment pain lumbar spine, LE's left greater than right Short Term Goal (STG) decrease pain by 2 STG Duration Goal MET Horse Doctor Goal (LTG) Decrease pain by at least 50% (good goal progress) 11/01/18: GOAL PROGRESS, NOT FULLY ACHIEVED LTG Duration 11/01/18 Assessment Summary Assessment Good response to deep water traction. Patient independent with aquatic ex program. Goals mostly achieved. May benefit from further PT in the future depending on recovery from upcoming surgery. Written aquatic exercise program was issued. Physical Therapy Plan Discharge Physical Therapy Discharge Comments Completed PT. Patient to have surgery on intestines.
== END 2018-12-27 13:58 | disposition home or self-care (01) ==
LOC: PHYS 10:15
PROVIDERS: PCP Nurse Practitioner Adult Health; Visit Provider Nurse Practitioner Adult Health
DX: M51.26 Other intervertebral disc displacement, lumbar region (principal)
CPT/HCPCS: 97113; 97162

== ENCOUNTER → 2019-03-02 07:10 | Outpatient (CLI) | payer OTHER, SELFPAY ==
--- NOTE | 2019-03-02 | DI.MRI.S_ITS ---
PROCEDURE: MR LUMBAR SPINE WO CON INDICATIONS: Low back and left hip radicular pain TECHNIQUE: Noncontrast sagittal T1 spin echo and T2 fast echo, sagittal STIR, axial T1 and T2 fast spin echo through the lumbar spine. In cases with scoliosis, additional coronal T2 fast spin echo may be performed. COMPARISON: [facility], , L-SPINE WITHOUT CONTRAST, 11/02/2013, 13:41. FINDINGS: Image quality: Excellent. Alignment and Curvature: Straightening of the normal lordotic curvature. Grade 1 anterolisthesis of L3 on L4 Bone Marrow: Postsurgical changes related to posterior decompression from the level of L3-L4. Moderate anterior wedging of L1 which appears chronic. No acute compression fracture. Multilevel degenerative endplate sclerosis and spurring. Diffuse facet arthropathy. Spinal Cord: Conus medullaris terminates at the L1-L2 level. Visualized cord demonstrates normal signal and size. Paraspinous Soft Tissues: No paravertebral masses. L1-L2: Mild bilateral facet arthropathy. No canal or lateral recess narrowing. Bilateral foraminal stenoses, grossly unchanged L2-L3: Broad-based posterior disc bulge and bilateral facet arthropathy. Mild central canal narrowing. Partial effacement of both lateral recesses with bilaterally symmetric appearance. No interval change. Mild to moderate left foraminal narrowing, which has progressed since 11/02/13. No right foraminal stenosis. L3-L4: Broad-based posterior disc bulge and bilateral facet arthropathy. Mild canal narrowing. Partial effacement of both lateral recesses with bilaterally symmetric appearance. Severe left foraminal stenosis with nerve root compression. There is interval progression Moderate right neuroforaminal narrowing, slightly progressed L4-L5: Broad-based posterior disc bulge and bilateral facet arthropathy. Mild central canal narrowing. No definite left foraminal stenosis. Mild right foraminal narrowing L5-S1: Bilateral facet arthropathy and mild broad-based posterior disc bulge. Mild dorsal epidural lipomatosis. There is mild center canal narrowing. Partial effacement of both lateral recesses with bilaterally symmetric appearance. Moderate left foraminal stenosis with mild nerve root compression. Severe right neuroforaminal narrowing with nerve root compression. No definite interval change IMPRESSION: Multilevel lumbar spondylosis and facet arthropathy with interval progression of left sided foraminal narrowing at L2-L3 since the prior study. There is also bilateral progression of L3-L4 foraminal stenoses. Interval posterior decompression from the level of L3-L4. Currently, no high-grade canal stenosis identified (improved since prior study). Dictated by: Timbo Medina M.D. on 03/02/2019 at 11:02 Approved by: Timbo Medina M.D. on 03/02/2019 at 11:29
== END ==
PROVIDERS: PCP Nurse Practitioner Adult Health
DX: M47.816 Spondylosis without myelopathy or radiculopathy, lumbar region (principal); M48.061 Spinal stenosis, lumbar region without neurogenic claudication; M25.552 Pain in left hip
CPT/HCPCS: 72148

== ENCOUNTER 2019-03-14 11:30 | Outpatient (RCR) | payer OTHER, SELFPAY ==
--- NOTE | 2018-12-27 11:20 | PT.OIE ---
Current Diagnoses Other intervertebral disc displacement, lumbar region (12/27/18) Provider Visit Care Team Role Provider Type AGUILA Zaldivar Attending Provider Non-Staff Primary Care Provider Specialty: Medical Address: [address] [place] [address], [address], [place], [address] Email: Physical Therapy Initial Evaluation PT-OP-A Visit Information Start: 12/27/18 17:26 Freq: Status: Active Protocol: Document 12/27/18 11:20 [facility] (Rec: 12/27/18 17:57 [facility] [id number]) Out-Patient Physical Therapy Visit Information Visit Information Visit Type Initial Evaluation Visit Start Time 11:20 Visit Stop Time 12:00 Total Visit Minutes 40 Visit Number 1 Number of CHAIRMAN EMERITUS Visits 0 Evaluation Information Evaluation Date 12/27/18 Precautions Precautions cardiac, colon surgery (open) 1 mo ago PT-OP-B Current Condition Start: 12/27/18 17:26 Freq: Status: Active Protocol: Document 12/27/18 11:20 [facility] (Rec: 12/27/18 17:57 [facility] [id number]) Current Condition History of Current Condition Onset Date 2 yrs Current Complaints low back pain, R knee pain, difficulty with lifting History of Current Condition Pt is a 68 y/o male presenting back to skilled physical therapy s/p surgical removal of portion of colon d/t colon cancer. Pt reports that he feels like he has no core musculature, and his low back is still painful with radiating pain down lateral L leg to foot. Pt admits that his radiating pain is somewhat less due to being laid-up over the past month recovering from surgery. Pt was enrolled in aquatic PT earlier this year and is motivated to get back into it. Pt reports bilateral foot numbness, and R leg weakness d/t having quadriceps reattachment in 2017 on the R. 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 do bee-keeping which includes lifting 50 lbs Current Functional Impairments (Reported) Functional Limitations- Mobility/Gait increases pain Functional Limitations- Recreation/ uanble to do bee-keeping due Hobbies to inability to lift Personal Factors Other Personal Factors That May Effect obesity, h/o angina/cardiac Therapy/Recovery issues, HTN, recent colon surgery/CA PT-OP-C Subjective Start: 12/27/18 17:26 Freq: Status: Active Protocol: Document 12/27/18 11:20 [facility] (Rec: 12/27/18 17:57 [facility] [email or web address]) Patient Questionnaires Oswestry Low Back Index Oswestry Score 40 OP-PT Pain Assessment Location low back Intensity 6 Scale Used Numeric (1 - 10) Description Aching Burning Sharp Shooting Frequency Frequent PT-OP-G Mobility & Gait Start: 12/27/18 17:26 Freq: Status: Active Protocol: Document 12/27/18 11:20 [facility] (Rec: 12/27/18 17:57 [facility] [email or web address]) OP Mobility Evaluation Bed Mobility Rolling mod indep with increased time and pain Supine to and from Sit mod indep with increased time and pain OP Gait Assessment Gait Deviations General Gait Pattern Antalgic Decreased Stride Length Flexed Trunk Wide Based Gait Factors Limiting Gait Function Factors Limiting Gait Function Decreased Activity Tolerance Decreased Sensation Decreased Strength Limited Range of Motion Pain PT-OP-H Neuro Start: 12/27/18 17:26 Freq: Status: Active Protocol: Document 12/27/18 11:20 [facility] (Rec: 12/27/18 17:57 [facility] [email or web address]) Sensation Evaluation Gross Sensation Gross Sensation Left LE Impaired Right LE Impaired Comments Summary Comments pt reports B foot numbness PT-OP-K Range of Motion Start: 12/27/18 17:26 Freq: Status: Active Protocol: Document 12/27/18 11:20 [facility] (Rec: 12/27/18 17:57 [facility] [email or web address]) Knee Goniometric Range of Motion Knee Measured in Degrees Left Flexion Active (degrees) 126 Extension Active (degrees) 0 Right Knee ROM WFL No Flexion Active (degrees) 119 Extension Active (degrees) 4 Extension Passive (degrees) 0 PT-OP-M Strength Start: 12/27/18 17:26 Freq: Status: Active Protocol: Document 12/27/18 11:20 [facility] (Rec: 12/27/18 17:57 [facility] [email or web address]) Trunk Strength Trunk Manual Muscle Testing Core Stabilization Hooklying- holding scapula off of table (partial sit-up) 5 seconds Supine- bilateral leg lift/ hold 3 seconds Hip Strength Hip Manual Muscle Testing Right Flexion (L2) 4- Good- Extension (S1) 3- Fair- Abduction 3 Fair External Rotation 3+ Fair+ Internal Rotation 3+ Fair+ Left Flexion (L2) 4- Good- Extension (S1) 3- Fair- Abduction 3 Fair External Rotation 3+ Fair+ Internal Rotation 4- Good- Knee Strength Knee Manual Muscle Testing Right Flexion (S2) 4- Good- Extension (L3) 3+ Fair+ Left Flexion (S2) 4- Good- Extension (L3) 4 Good Ankle/Foot Strength Ankle and Foot Manual Muscle Testing Left Dorsiflexion (L4) 3 Fair Right Dorsiflexion (L4) 5 Normal Toe Strength Toe Manual Muscle Testing Right Great Toe Extension 5 Normal Left Great Toe Extension 3+ Fair+ PT-OP-T Assessment and Plan Start: 12/27/18 17:26 Freq: Status: Active Protocol: Document 12/27/18 11:20 [facility] (Rec: 12/27/18 17:57 [facility] [id number]) Physical Therapy Assessment Rehab Potential Rehabilitation Potential Good Evaluation Complexity Number of Personal Factors/Comorbidities 3 or More Number of Body Systems Impaired 4 or More Clinical Presentation at Evaluation Evolving Impairments Impairments Activity Tolerance Functional Activities Functional Mobility Gait Pain ROM Strength Goals Recreational Activities 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 LTG Duration 12 weeks Perceived Disability Impairment Modified Oswestry Score 40% Package Clerk Goal (LTG) Pt will grade overall perceived disability on the Modified Oswestry Questionnaire to at least 28% or less. LTG Duration 12 weeks knowledge deficit Impairment pt not indep. with aquatic home program [facility] Goal (LTG) Pt will report tolerance to indep. aquatic home exercise program for 45 min, 2x/wk (4 total if including PT treatments). LTG Duration 12 weeks weakness Impairment Core and LE weakness Short Term Goal (STG) Pt will have MMT of LE strength graded 4/5 or greater . STG Duration 6 weeks [facility] Goal (LTG) Pt will have MMT of LE strength graded 4+/5 or greater, and be able to hold scapula off of table in partial sit-up position, as well as hold BLE lift for 10 seconds with each instance. LTG Duration 12 weeks pain Impairment 6/10 pain in low back, LLE Short Term Goal (STG) Pt will report pain 4/10 or less with daily functional activities. STG Duration 6 weeks Package Clerk Goal (LTG) Pt will report pain 2/10 or less with daily functional activities. LTG Duration 12 weeks Assessment Summary Assessment Pt presents back to physical therapy s/p colon surgery d/t colon CA. Pt's incision is closed, with pink/purple color scar and no signs of infection. 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 Pt's radiating pain likely not as aggravated today due to less weight bearing and inactivity over the past month s/p surgery. Pt has had good results with aquatic therapy in the past, and is a good candidate to re-establish treatment and a home exercises program to continue to progress his overall strength and health. Physical Therapy Plan Frequency and Duration Frequency of Treatment 2x/Week Duration of Treatment 12 weeks Plan of Care Start Date 12/27/18 Plan of Care End Date 03/21/19 Therapeutic Interventions Therapeutic Interventions Aquatic Therapy Balance Training Gait Training Home Exercise Program Manual Therapy Neuromuscular Re-education Orthotic/Prosthetic Management Patient/Caregiver Education Self-Care/Home Management Sensory Integration Soft Tissue Mobilization Taping Therapeutic Activities Therapeutic Exercises Next Visit Focus/Plan Next Note Type Treatment Note Next Visit Plan re-assess and initiate aquatic PT activities with emphasis on gentle core stability, LE strengthening
--- NOTE | 2019-01-03 10:15 | PT.OTN ---
Current Diagnoses Other intervertebral disc displacement, lumbar region (01/03/19) Physical Therapy Treatment Note PT-OP-A Visit Information Start: 12/27/18 17:26 Freq: Status: Active Protocol: Document 01/03/19 10:15 DLM (Rec: 01/03/19 17:22 DLM [id number]) Out-Patient Physical Therapy Visit Information Visit Information Visit Type Aquatic Treatment Note Visit Start Time 10:15 Visit Stop Time 11:00 Total Visit Minutes 45 Visit Number 3 Number of SHERIFF'S OFFICER Visits 0 Evaluation Information Evaluation Date 12/27/18 Precautions Precautions cardiac, colon surgery (open) 1 mo ago PT-OP-B Current Condition Start: 12/27/18 17:26 Freq: Status: Active Protocol: Document 12/27/18 11:20 RCC (Rec: 12/27/18 17:57 RCC [email or web address]) Current Condition History of Current Condition Onset Date 2 yrs Current Complaints low back pain, R knee pain, difficulty with lifting History of Current Condition Pt is a 68 y/o male presenting back to skilled physical therapy s/p surgical removal of portion of colon d/t colon cancer. Pt reports that he feels like he has no core musculature, and his low back is still painful with radiating pain down lateral L leg to foot. Pt admits that his radiating pain is somewhat less due to being laid-up over the past month recovering from surgery. Pt was enrolled in aquatic PT earlier this year and is motivated to get back into it. Pt reports bilateral foot numbness, and R leg weakness d/t having quadriceps reattachment in 2017 on the R. 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 do bee-keeping which includes lifting 50 lbs Current Functional Impairments (Reported) Functional Limitations- Mobility/Gait increases pain Functional Limitations- Recreation/ uanble to do bee-keeping due Hobbies to inability to lift Personal Factors Other Personal Factors That May Effect obesity, h/o angina/cardiac Therapy/Recovery issues, HTN, recent colon surgery/CA PT-OP-C Subjective Start: 12/27/18 17:26 Freq: Status: Active Protocol: Document 01/03/19 10:15 DLM (Rec: 01/03/19 17:22 DLM [id number]) OP-PT Subjective Patient Comments Patient Comments He really likes being in the water. He did ok after last pool visit. PT-OP-G Mobility & Gait Start: 12/27/18 17:26 Freq: Status: Active Protocol: Document 12/27/18 11:20 RCC (Rec: 12/27/18 17:57 [facility] [email or web address]) OP Mobility Evaluation Bed Mobility Rolling mod indep with increased time and pain Supine to and from Sit mod indep with increased time and pain OP Gait Assessment Gait Deviations General Gait Pattern Antalgic Decreased Stride Length Flexed Trunk Wide Based Gait Factors Limiting Gait Function Factors Limiting Gait Function Decreased Activity Tolerance Decreased Sensation Decreased Strength Limited Range of Motion Pain PT-OP-H Neuro Start: 12/27/18 17:26 Freq: Status: Active Protocol: Document 12/27/18 11:20 RCC (Rec: 12/27/18 17:57 [facility] [email or web address]) Sensation Evaluation Gross Sensation Gross Sensation Left LE Impaired Right LE Impaired Comments Summary Comments pt reports B foot numbness PT-OP-K Range of Motion Start: 12/27/18 17:26 Freq: Status: Active Protocol: Document 12/27/18 11:20 RCC (Rec: 12/27/18 17:57 [facility] [email or web address]) Knee Goniometric Range of Motion Knee Measured in Degrees Left Flexion Active (degrees) 126 Extension Active (degrees) 0 Right Knee ROM WFL No Flexion Active (degrees) 119 Extension Active (degrees) 4 Extension Passive (degrees) 0 PT-OP-M Strength Start: 12/27/18 17:26 Freq: Status: Active Protocol: Document 12/27/18 11:20 RCC (Rec: 12/27/18 17:57 [facility] [email or web address]) Trunk Strength Trunk Manual Muscle Testing Core Stabilization Hooklying- holding scapula off of table (partial sit-up) 5 seconds Supine- bilateral leg lift/ hold 3 seconds Hip Strength Hip Manual Muscle Testing Right Flexion (L2) 4- Good- Extension (S1) 3- Fair- Abduction 3 Fair External Rotation 3+ Fair+ Internal Rotation 3+ Fair+ Left Flexion (L2) 4- Good- Extension (S1) 3- Fair- Abduction 3 Fair External Rotation 3+ Fair+ Internal Rotation 4- Good- Knee Strength Knee Manual Muscle Testing Right Flexion (S2) 4- Good- Extension (L3) 3+ Fair+ Left Flexion (S2) 4- Good- Extension (L3) 4 Good Ankle/Foot Strength Ankle and Foot Manual Muscle Testing Left Dorsiflexion (L4) 3 Fair Right Dorsiflexion (L4) 5 Normal Toe Strength Toe Manual Muscle Testing Right Great Toe Extension 5 Normal Left Great Toe Extension 3+ Fair+ PT-OP-S Aquatic Treatment Start: 12/27/18 17:26 Freq: Status: Active Protocol: Document 01/03/19 10:15 DLM (Rec: 01/03/19 17:22 DLM [id number]) Aquatics Treatment Pool Entry/Exit Pool Entry/Exit Method Stairs Assistance Independent Water Walking lunge walking Water Level Chest Level Comments 2 laps september, straight leg september Water Level Chest Level Comments 2 laps fwd,bck,side Water Level Chest Level Comments 2 laps each Lower Extremity Exercises CC,CCW Details standing at wall w/min hand support Body Position Standing Water Level Chest Level Reps/Duration 2x 10 bilat Comments cues for core stab hip flex/ext, ab/ad Details standing at wall w/min hand support Body Position Standing Water Level Chest Level Reps/Duration 2x10 bilat Comments cues for core stab Lower Extremity Stretches HC Body Position Standing Water Level Chest Level Comments 2x 30sec bilat hamstring, ITB, add Details at wall Body Position Standing Water Level Chest Level Equipment Small Noodle Reps/Duration 2x 30 sec hold Spinal Exercises deep water hang Body Position Standing Water Level [place] Equipment blue float [place] Activities [place] Activities Bicycle [place] Hip Abduction/Adduction Equipment blue float PT-OP-T Assessment and Plan Start: 12/27/18 17:26 Freq: Status: Active Protocol: Document 01/03/19 10:15 DLM (Rec: 01/03/19 17:22 DLM [id number]) Physical Therapy Assessment Goals Recreational Activities 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 with bee- keeping (unable to lift hive ~ 50 lbs) [facility] Goal (LTG) Pt will be demonstrate the ability to lift 50 lbs with good body mechanics and no verbal cuing to return to indep bee-keeping. LTG Duration 12 weeks Perceived Disability Impairment Modified Oswestry Score 40% Crane Operator Goal (LTG) Pt will grade overall perceived disability on the Modified Oswestry Questionnaire to at least 28% or less. LTG Duration 12 weeks knowledge deficit Impairment pt not indep. with aquatic home program [facility] Goal (LTG) Pt will report tolerance to indep. aquatic home exercise program for 45 min, 2x/wk (4 total if including PT treatments). LTG Duration 12 weeks weakness Impairment Core and LE weakness Short Term Goal (STG) Pt will have MMT of LE strength graded 4/5 or greater . STG Duration 6 weeks [facility] Goal (LTG) Pt will have MMT of LE strength graded 4+/5 or greater, and be able to hold scapula off of table in partial sit-up position, as well as hold BLE lift for 10 seconds with each instance. LTG Duration 12 weeks pain Impairment 6/10 pain in low back, LLE Short Term Goal (STG) Pt will report pain 4/10 or less with daily functional activities. STG Duration 6 weeks Crane Operator Goal (LTG) Pt will report pain 2/10 or less with daily functional activities. LTG Duration 12 weeks Assessment Summary Assessment He tolerated the pool exercises well. He needs assistance to choose the correct level of intensity of his exercises to manage his back pain. He is inclined to try to do exercises at the intensity he was doing in October but he is not ready for this yet and will need to gradually work back up to that intensity. Physical Therapy Plan Frequency and Duration Frequency of Treatment 2x/Week Duration of Treatment 12 weeks Plan of Care Start Date 12/27/18 Plan of Care End Date 03/21/19 Therapeutic Interventions Therapeutic Interventions Aquatic Therapy Balance Training Gait Training Home Exercise Program Manual Therapy Neuromuscular Re-education Orthotic/Prosthetic Management Patient/Caregiver Education Self-Care/Home Management Sensory Integration Soft Tissue Mobilization Taping Therapeutic Activities Therapeutic Exercises Next Visit Focus/Plan Next Note Type Treatment Note Next Visit Plan Aquatic PT with gradual advancement of his exercises
--- NOTE | 2019-01-03 14:33 | PT.OTN ---
Current Diagnoses Other intervertebral disc displacement, lumbar region (12/29/18) Physical Therapy Treatment Note PT-OP-A Visit Information Start: 12/27/18 17:26 Freq: Status: Active Protocol: Document 12/29/18 11:00 LJ (Rec: 12/29/18 14:57 LJ [email or web address]) Out-Patient Physical Therapy Visit Information Visit Information Visit Type Aquatic Treatment Note Visit Note pt arrived 30 min early Visit Start Time 11:00 Visit Stop Time 11:45 Total Visit Minutes 45 Visit Number 2 Number of MANAGER COMMUNITY Visits 1 PT-OP-B Current Condition Start: 12/27/18 17:26 Freq: Status: Active Protocol: Document 12/27/18 11:20 RCC (Rec: 12/27/18 17:57 RCC [email or web address]) Current Condition History of Current Condition Onset Date 2 yrs Current Complaints low back pain, R knee pain, difficulty with lifting History of Current Condition Pt is a 68 y/o male presenting back to skilled physical therapy s/p surgical removal of portion of colon d/t colon cancer. Pt reports that he feels like he has no core musculature, and his low back is still painful with radiating pain down lateral L leg to foot. Pt admits that his radiating pain is somewhat less due to being laid-up over the past month recovering from surgery. Pt was enrolled in aquatic PT earlier this year and is motivated to get back into it. Pt reports bilateral foot numbness, and R leg weakness d/t having quadriceps reattachment in 2017 on the R. 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 do bee-keeping which includes lifting 50 lbs Current Functional Impairments (Reported) Functional Limitations- Mobility/Gait increases pain Functional Limitations- Recreation/ uanble to do bee-keeping due Hobbies to inability to lift Personal Factors Other Personal Factors That May Effect obesity, h/o angina/cardiac Therapy/Recovery issues, HTN, recent colon surgery/CA PT-OP-C Subjective Start: 12/27/18 17:26 Freq: Status: Active Protocol: Document 12/29/18 11:00 LJ (Rec: 12/29/18 15:00 LJ [email or web address]) OP-PT Subjective Patient Comments Patient Comments Pt states he woke up with sciatic pain in LLE in lateral fortion of leg and in toes of RLE. Feels tightness in TFL and hamstring area PT-OP-G Mobility & Gait Start: 12/27/18 17:26 Freq: Status: Active Protocol: Document 12/27/18 11:20 RCC (Rec: 12/27/18 17:57 [facility] [email or web address]) OP Mobility Evaluation Bed Mobility Rolling mod indep with increased time and pain Supine to and from Sit mod indep with increased time and pain OP Gait Assessment Gait Deviations General Gait Pattern Antalgic Decreased Stride Length Flexed Trunk Wide Based Gait Factors Limiting Gait Function Factors Limiting Gait Function Decreased Activity Tolerance Decreased Sensation Decreased Strength Limited Range of Motion Pain PT-OP-H Neuro Start: 12/27/18 17:26 Freq: Status: Active Protocol: Document 12/27/18 11:20 RCC (Rec: 12/27/18 17:57 [facility] [email or web address]) Sensation Evaluation Gross Sensation Gross Sensation Left LE Impaired Right LE Impaired Comments Summary Comments pt reports B foot numbness PT-OP-K Range of Motion Start: 12/27/18 17:26 Freq: Status: Active Protocol: Document 12/27/18 11:20 RCC (Rec: 12/27/18 17:57 [facility] [email or web address]) Knee Goniometric Range of Motion Knee Measured in Degrees Left Flexion Active (degrees) 126 Extension Active (degrees) 0 Right Knee ROM WFL No Flexion Active (degrees) 119 Extension Active (degrees) 4 Extension Passive (degrees) 0 PT-OP-M Strength Start: 12/27/18 17:26 Freq: Status: Active Protocol: Document 12/27/18 11:20 RCC (Rec: 12/27/18 17:57 [facility] [email or web address]) Trunk Strength Trunk Manual Muscle Testing Core Stabilization Hooklying- holding scapula off of table (partial sit-up) 5 seconds Supine- bilateral leg lift/ hold 3 seconds Hip Strength Hip Manual Muscle Testing Right Flexion (L2) 4- Good- Extension (S1) 3- Fair- Abduction 3 Fair External Rotation 3+ Fair+ Internal Rotation 3+ Fair+ Left Flexion (L2) 4- Good- Extension (S1) 3- Fair- Abduction 3 Fair External Rotation 3+ Fair+ Internal Rotation 4- Good- Knee Strength Knee Manual Muscle Testing Right Flexion (S2) 4- Good- Extension (L3) 3+ Fair+ Left Flexion (S2) 4- Good- Extension (L3) 4 Good Ankle/Foot Strength Ankle and Foot Manual Muscle Testing Left Dorsiflexion (L4) 3 Fair Right Dorsiflexion (L4) 5 Normal Toe Strength Toe Manual Muscle Testing Right Great Toe Extension 5 Normal Left Great Toe Extension 3+ Fair+ PT-OP-S Aquatic Treatment Start: 12/27/18 17:26 Freq: Status: Active Protocol: Document 12/29/18 11:00 JAMIN (Rec: 12/29/18 14:57 LJ [email or web address]) Aquatics Treatment Pool Entry/Exit Pool Entry/Exit Method Stairs Assistance Independent Water Walking september, straight leg september Water Level Chest Level Comments 15M fwd,bck,side Comments 15 min Lower Extremity Exercises HS curls Details standing at wall w/min hand support Body Position Standing Water Level Chest Level Equipment Ankle Weight- 2.5# Reps/Duration 2x10 bilat Comments cues for no hip flexion and erect posture HS curls and kickbacks Details standing at wall w/min hand support Body Position Standing Water Level Chest Level Equipment Ankle Weight- 2.5# Reps/Duration 2x10 bilat Comments cues for no hip flexion and erect posture CC,CCW Details standing at wall w/min hand support Body Position Standing Water Level Chest Level Equipment Ankle Weight- 2.5# Reps/Duration 2x 10 bilat hip flex/ext, ab/ad Details standing at wall w/min hand support Body Position Standing Water Level Chest Level Equipment Ankle Weight- 2.5# Reps/Duration 2x10 bilat Comments cues for minimal trunk movement Lower Extremity Stretches HC Body Position Standing Water Level Chest Level Comments 2x 30sec bilat piriformis, hip ER Comments 2x 30 sec bilat hamstring, ITB, add Details at wall Body Position Standing Water Level Chest Level Reps/Duration 2x 30 sec Upper Extremity Exercises hor ab/ad, flex/ext Comments while side stepping Upper Extremity Stretches walking w/paddles Water Level Chest Level Reps/Duration 30 M [place] Activities [place] Activities Bicycle [place] Hip Abduction/Adduction Equipment 2 lg noodles PT-OP-T Assessment and Plan Start: 12/27/18 17:26 Freq: Status: Active Protocol: Document 12/29/18 11:00 JAMIN (Rec: 01/03/19 14:33 JAMIN [email or web address]) Physical Therapy Assessment Assessment Summary Assessment Pt able to resume exercises from previous aquatic therapy w/o increase in pain or fatigue. Pt still complains of sciatic pain and inability to make his legs do what he tells them to do. Pt continues to emphasize flexion and anterior muscle activation more than posterior muscle activation. Physical Therapy Plan Frequency and Duration Frequency of Treatment 2x/Week Duration of Treatment 12 weeks Plan of Care Start Date 12/27/18 Plan of Care End Date 03/21/19 Therapeutic Interventions Therapeutic Interventions Aquatic Therapy Balance Training Gait Training Home Exercise Program Manual Therapy Neuromuscular Re-education Orthotic/Prosthetic Management Patient/Caregiver Education Self-Care/Home Management Sensory Integration Soft Tissue Mobilization Taping Therapeutic Activities Therapeutic Exercises Next Visit Focus/Plan Next Note Type Treatment Note Next Visit Plan Continue with posterior chain activation and strengthening as well as gait training.
--- NOTE | 2019-01-05 14:29 | PT.OTN ---
Current Diagnoses Other intervertebral disc displacement, lumbar region (01/03/19) Physical Therapy Treatment Note PT-OP-A Visit Information Start: 12/27/18 17:26 Freq: Status: Active Protocol: Document 01/05/19 10:15 LJ (Rec: 01/05/19 14:29 LJ [email or web address]) Out-Patient Physical Therapy Visit Information Visit Information Visit Type Aquatic Treatment Note Visit Start Time 10:15 Visit Stop Time 11:00 Total Visit Minutes 45 Visit Number 4 Number of PRODUCE WRAPPER Visits 1 Precautions Precautions cardiac, colon surgery (open) 1 mo ago PT-OP-B Current Condition Start: 12/27/18 17:26 Freq: Status: Active Protocol: Document 12/27/18 11:20 RCC (Rec: 12/27/18 17:57 RCC [email or web address]) Current Condition History of Current Condition Onset Date 2 yrs Current Complaints low back pain, R knee pain, difficulty with lifting History of Current Condition Pt is a 68 y/o male presenting back to skilled physical therapy s/p surgical removal of portion of colon d/t colon cancer. Pt reports that he feels like he has no core musculature, and his low back is still painful with radiating pain down lateral L leg to foot. Pt admits that his radiating pain is somewhat less due to being laid-up over the past month recovering from surgery. Pt was enrolled in aquatic PT earlier this year and is motivated to get back into it. Pt reports bilateral foot numbness, and R leg weakness d/t having quadriceps reattachment in 2017 on the R. 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 do bee-keeping which includes lifting 50 lbs Current Functional Impairments (Reported) Functional Limitations- Mobility/Gait increases pain Functional Limitations- Recreation/ uanble to do bee-keeping due Hobbies to inability to lift Personal Factors Other Personal Factors That May Effect obesity, h/o angina/cardiac Therapy/Recovery issues, HTN, recent colon surgery/CA PT-OP-C Subjective Start: 12/27/18 17:26 Freq: Status: Active Protocol: Document 01/05/19 10:15 JAMIN (Rec: 01/05/19 14:29 LJ [email or web address]) OP-PT Subjective Patient Comments Patient Comments Pt states there have been no changes since the last aquatic session. Still experiencing tight hamstring muscles and Lknee tightness PT-OP-G Mobility & Gait Start: 12/27/18 17:26 Freq: Status: Active Protocol: Document 12/27/18 11:20 RCC (Rec: 12/27/18 17:57 [facility] [email or web address]) OP Mobility Evaluation Bed Mobility Rolling mod indep with increased time and pain Supine to and from Sit mod indep with increased time and pain OP Gait Assessment Gait Deviations General Gait Pattern Antalgic Decreased Stride Length Flexed Trunk Wide Based Gait Factors Limiting Gait Function Factors Limiting Gait Function Decreased Activity Tolerance Decreased Sensation Decreased Strength Limited Range of Motion Pain PT-OP-H Neuro Start: 12/27/18 17:26 Freq: Status: Active Protocol: Document 12/27/18 11:20 RCC (Rec: 12/27/18 17:57 [facility] [email or web address]) Sensation Evaluation Gross Sensation Gross Sensation Left LE Impaired Right LE Impaired Comments Summary Comments pt reports B foot numbness PT-OP-K Range of Motion Start: 12/27/18 17:26 Freq: Status: Active Protocol: Document 12/27/18 11:20 RCC (Rec: 12/27/18 17:57 [facility] [email or web address]) Knee Goniometric Range of Motion Knee Left Flexion Active (degrees) 126 Extension Active (degrees) 0 Right Knee ROM WFL No Flexion Active (degrees) 119 Extension Active (degrees) 4 Extension Passive (degrees) 0 PT-OP-M Strength Start: 12/27/18 17:26 Freq: Status: Active Protocol: Document 12/27/18 11:20 RCC (Rec: 12/27/18 17:57 [facility] [email or web address]) Trunk Strength Trunk Manual Muscle Testing Core Stabilization Hooklying- holding scapula off of table (partial sit-up) 5 seconds Supine- bilateral leg lift/ hold 3 seconds Hip Strength Hip Manual Muscle Testing Right Flexion (L2) 4- Good- Extension (S1) 3- Fair- Abduction 3 Fair External Rotation 3+ Fair+ Internal Rotation 3+ Fair+ Left Flexion (L2) 4- Good- Extension (S1) 3- Fair- Abduction 3 Fair External Rotation 3+ Fair+ Internal Rotation 4- Good- Knee Strength Knee Manual Muscle Testing Right Flexion (S2) 4- Good- Extension (L3) 3+ Fair+ Left Flexion (S2) 4- Good- Extension (L3) 4 Good Ankle/Foot Strength Ankle and Foot Manual Muscle Testing Left Dorsiflexion (L4) 3 Fair Right Dorsiflexion (L4) 5 Normal Toe Strength Toe Manual Muscle Testing Right Great Toe Extension 5 Normal Left Great Toe Extension 3+ Fair+ PT-OP-S Aquatic Treatment Start: 12/27/18 17:26 Freq: Status: Active Protocol: Document 01/05/19 10:15 LJ (Rec: 01/05/19 14:29 LJ [email or web address]) Aquatics Treatment Pool Entry/Exit Pool Entry/Exit Method Stairs Assistance Independent Water Walking lunge walking Water Level Chest Level Comments 2 laps march, straight leg march Water Level Chest Level Comments 2 laps fwd,bck,side Water Level Chest Level Comments 2 laps each Lower Extremity Exercises HS curls Details standing at wall w/min hand support Body Position Standing Water Level Chest Level Reps/Duration 2x10 bilat Comments cues for no hip flexion and erect posture HS curls and kickbacks Details standing at wall w/min hand support Body Position Standing Water Level Chest Level Reps/Duration 2x10 bilat Comments cues for no hip flexion and erect posture CC,CCW Details standing at wall w/min hand support Body Position Standing Water Level Chest Level Reps/Duration 2x 10 bilat Comments cues for core stab hip flex/ext, ab/ad Details standing at wall w/min hand support Body Position Standing Water Level Chest Level Reps/Duration 2x10 bilat Comments cues for core stab Lower Extremity Stretches HC Body Position Standing Water Level Chest Level Comments 2x 30sec bilat piriformis, hip ER Comments 2x 30 sec bilat hamstring, ITB, add Details at wall Body Position Standing Water Level Chest Level Equipment Small Noodle Reps/Duration 2x 30 sec hold Upper Extremity Exercises lat pull down, IR/ER Body Position Standing Water Level Chest Level Reps/Duration 10 bilat Comments cues for core stab hor ab/ad, flex/ext Water Level Chest Level Reps/Duration 10 renato, Comments while side stepping Balance stop start walking Water Level Chest Level Equipment 5 min standing stabilization w/perturbations Body Position Standing Water Level Chest Level Reps/Duration 4 min Comments pt with difficulty in coordinating trunk mms [place] Activities [place] Activities Bicycle [place] Hip Abduction/Adduction Other Activities SLR in corner Equipment blue float Duration 15 min Comments Pt requiring cues for glute activation and minimizing hip flexion. Pt unable to fully extend knees in CC ski PT-OP-T Assessment and Plan Start: 12/27/18 17:26 Freq: Status: Active Protocol: Document 01/05/19 10:15 JAMIN (Rec: 01/05/19 14:29 JAMIN [email or web address]) Physical Therapy Assessment Goals Recreational Activities 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 with bee- keeping (unable to lift hive ~ 50 lbs) [facility] Goal (LTG) Pt will be demonstrate the ability to lift 50 lbs with good body mechanics and no verbal cuing to return to indep bee-keeping. LTG Duration 12 weeks Perceived Disability Impairment Modified Oswestry Score 40% [facility] Goal (LTG) Pt will grade overall perceived disability on the Modified Oswestry Questionnaire to at least 28% or less. LTG Duration 12 weeks knowledge deficit Impairment pt not indep. with aquatic home program Resistance Brazer Goal (LTG) Pt will report tolerance to indep. aquatic home exercise program for 45 min, 2x/wk (4 total if including PT treatments). LTG Duration 12 weeks weakness Impairment Core and LE weakness Short Term Goal (STG) Pt will have MMT of LE strength graded 4/5 or greater . STG Duration 6 weeks [facility] Goal (LTG) Pt will have MMT of LE strength graded 4+/5 or greater, and be able to hold scapula off of table in partial sit-up position, as well as hold BLE lift for 10 seconds with each instance. LTG Duration 12 weeks pain Impairment 6/10 pain in low back, LLE Short Term Goal (STG) Pt will report pain 4/10 or less with daily functional activities. STG Duration 6 weeks Resistance Brazer Goal (LTG) Pt will report pain 2/10 or less with daily functional activities. LTG Duration 12 weeks Assessment Summary Assessment Pt tolerated therapy session well with no complaints of pain or sciatic symptoms. Requires multiple cues for holding stretches and maintaining upright posture during exercises and stretches . Physical Therapy Plan Frequency and Duration Frequency of Treatment 2x/Week Duration of Treatment 12 weeks Plan of Care Start Date 12/27/18 Plan of Care End Date 03/21/19 Therapeutic Interventions Therapeutic Interventions Aquatic Therapy Balance Training Gait Training Home Exercise Program Manual Therapy Neuromuscular Re-education Orthotic/Prosthetic Management Patient/Caregiver Education Self-Care/Home Management Sensory Integration Soft Tissue Mobilization Taping Therapeutic Activities Therapeutic Exercises Next Visit Focus/Plan Next Note Type Treatment Note Next Visit Plan Aquatic PT with gradual advancement of his exercises
--- NOTE | 2019-01-08 16:32 | PT.OTN ---
Current Diagnoses Other intervertebral disc displacement, lumbar region (01/08/19) Physical Therapy Treatment Note PT-OP-A Visit Information Start: 12/27/18 17:26 Freq: Status: Active Protocol: Document 01/08/19 16:24 SAK (Rec: 01/08/19 16:31 SAK [id number]) Out-Patient Physical Therapy Visit Information Visit Information Visit Type Aquatic Treatment Note Visit Start Time 10:15 Visit Stop Time 11:00 Total Visit Minutes 45 Visit Number 5 Number of RELAY SHOP SUPERVISOR Visits 0 PT-OP-B Current Condition Start: 12/27/18 17:26 Freq: Status: Active Protocol: Document 12/27/18 11:20 RCC (Rec: 12/27/18 17:57 RCC [email or web address]) Current Condition History of Current Condition Onset Date 2 yrs Current Complaints low back pain, R knee pain, difficulty with lifting History of Current Condition Pt is a 68 y/o male presenting back to skilled physical therapy s/p surgical removal of portion of colon d/t colon cancer. Pt reports that he feels like he has no core musculature, and his low back is still painful with radiating pain down lateral L leg to foot. Pt admits that his radiating pain is somewhat less due to being laid-up over the past month recovering from surgery. Pt was enrolled in aquatic PT earlier this year and is motivated to get back into it. Pt reports bilateral foot numbness, and R leg weakness d/t having quadriceps reattachment in 2017 on the R. 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 do bee-keeping which includes lifting 50 lbs Current Functional Impairments (Reported) Functional Limitations- Mobility/Gait increases pain Functional Limitations- Recreation/ uanble to do bee-keeping due Hobbies to inability to lift Personal Factors Other Personal Factors That May Effect obesity, h/o angina/cardiac Therapy/Recovery issues, HTN, recent colon surgery/CA PT-OP-C Subjective Start: 12/27/18 17:26 Freq: Status: Active Protocol: Document 01/08/19 16:24 SAK (Rec: 01/08/19 16:31 SAK [id number]) OP-PT Subjective Patient Comments Patient Comments sciatic nerve still raging. PT-OP-G Mobility & Gait Start: 12/27/18 17:26 Freq: Status: Active Protocol: Document 12/27/18 11:20 RCC (Rec: 12/27/18 17:57 RCC [email or web address]) OP Mobility Evaluation Bed Mobility Rolling mod indep with increased time and pain Supine to and from Sit mod indep with increased time and pain OP Gait Assessment Gait Deviations General Gait Pattern Antalgic Decreased Stride Length Flexed Trunk Wide Based Gait Factors Limiting Gait Function Factors Limiting Gait Function Decreased Activity Tolerance Decreased Sensation Decreased Strength Limited Range of Motion Pain PT-OP-H Neuro Start: 12/27/18 17:26 Freq: Status: Active Protocol: Document 12/27/18 11:20 RCC (Rec: 12/27/18 17:57 RCC [email or web address]) Sensation Evaluation Gross Sensation Gross Sensation Left LE Impaired Right LE Impaired Comments Summary Comments pt reports B foot numbness PT-OP-K Range of Motion Start: 12/27/18 17:26 Freq: Status: Active Protocol: Document 12/27/18 11:20 RCC (Rec: 12/27/18 17:57 RCC [email or web address]) Knee Goniometric Range of Motion Knee Left Flexion Active (degrees) 126 Extension Active (degrees) 0 Right Knee ROM WFL No Flexion Active (degrees) 119 Extension Active (degrees) 4 Extension Passive (degrees) 0 PT-OP-M Strength Start: 12/27/18 17:26 Freq: Status: Active Protocol: Document 12/27/18 11:20 RCC (Rec: 12/27/18 17:57 RCC [email or web address]) Trunk Strength Trunk Manual Muscle Testing Core Stabilization Hooklying- holding scapula off of table (partial sit-up) 5 seconds Supine- bilateral leg lift/ hold 3 seconds Hip Strength Hip Manual Muscle Testing Right Flexion (L2) 4- Good- Extension (S1) 3- Fair- Abduction 3 Fair External Rotation 3+ Fair+ Internal Rotation 3+ Fair+ Left Flexion (L2) 4- Good- Extension (S1) 3- Fair- Abduction 3 Fair External Rotation 3+ Fair+ Internal Rotation 4- Good- Knee Strength Knee Manual Muscle Testing Right Flexion (S2) 4- Good- Extension (L3) 3+ Fair+ Left Flexion (S2) 4- Good- Extension (L3) 4 Good Ankle/Foot Strength Ankle and Foot Manual Muscle Testing Left Dorsiflexion (L4) 3 Fair Right Dorsiflexion (L4) 5 Normal Toe Strength Toe Manual Muscle Testing Right Great Toe Extension 5 Normal Left Great Toe Extension 3+ Fair+ PT-OP-S Aquatic Treatment Start: 12/27/18 17:26 Freq: Status: Active Protocol: Document 01/08/19 16:24 SAK (Rec: 01/08/19 16:31 [facility] [id number]) Aquatics Treatment Pool Entry/Exit Pool Entry/Exit Method Stairs Assistance Independent Water Walking stairs all directions Water Level Waist Level Comments 6 boxes lunge walking Water Level Chest Level Comments 2 laps march, straight leg march Water Level Chest Level Comments 2 laps fwd,bck,side Water Level Chest Level Comments 2 laps each Lower Extremity Exercises figure 8's Body Position Standing Comments with hip/knee flexed at 90/90, leading with knee HS curls Details standing at wall w/min hand support Body Position Standing Water Level Chest Level Reps/Duration 2x10 bilat Comments cues for no hip flexion and erect posture HS curls and kickbacks Details standing at wall w/min hand support Body Position Standing Water Level Chest Level Reps/Duration 2x10 bilat Comments cues for no hip flexion and erect posture CC,CCW Details standing at wall w/min hand support Body Position Standing Water Level Chest Level Reps/Duration 2x 10 bilat Comments cues for core stab squats Water Level Waist Level Reps/Duration 10x Comments VC for core stab and muscle sequencing hip flex/ext, ab/ad Details standing at wall w/min hand support Body Position Standing Water Level Chest Level Reps/Duration 2x10 bilat Comments cues for core stab Lower Extremity Stretches lateral trunk and ITb stretch Body Position Standing Water Level Chest Level Reps/Duration 2x Comments holding wall piriformis, hip ER Comments 2x 30 sec bilat hamstring, ITB, add Details at wall Body Position Standing Water Level Chest Level Equipment Large Noodle Reps/Duration 2x 30 sec hold Spinal Exercises deep water hang Body Position Standing Water Level [place] Equipment blue float [place] Activities [place] Activities Bicycle [place] Hip Abduction/Adduction Other Activities SLR in corner Equipment blue float Duration 15 min Comments Pt requiring cues for glute activation and minimizing hip flexion. Pt unable to fully extend knees in CC ski PT-OP-T Assessment and Plan Start: 12/27/18 17:26 Freq: Status: Active Protocol: Document 01/08/19 10:15 [facility] (Rec: 01/08/19 16:31 [facility] [id number]) Physical Therapy Assessment Goals Recreational Activities 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 with bee- keeping (unable to lift hive ~ 50 lbs) Shoe Cementer Goal (LTG) Pt will be demonstrate the ability to lift 50 lbs with good body mechanics and no verbal cuing to return to indep bee-keeping. LTG Duration 12 weeks Perceived Disability Impairment Modified Oswestry Score 40% Shoe Cementer Goal (LTG) Pt will grade overall perceived disability on the Modified Oswestry Questionnaire to at least 28% or less. LTG Duration 12 weeks knowledge deficit Impairment pt not indep. with aquatic home program Snf Goal (LTG) Pt will report tolerance to indep. aquatic home exercise program for 45 min, 2x/wk (4 total if including PT treatments). LTG Duration 12 weeks weakness Impairment Core and LE weakness Short Term Goal (STG) Pt will have MMT of LE strength graded 4/5 or greater . STG Duration 6 weeks Shoe Cementer Goal (LTG) Pt will have MMT of LE strength graded 4+/5 or greater, and be able to hold scapula off of table in partial sit-up position, as well as hold BLE lift for 10 seconds with each instance. LTG Duration 12 weeks pain Impairment 6/10 pain in low back, LLE Short Term Goal (STG) Pt will report pain 4/10 or less with daily functional activities. STG Duration 6 weeks Shoe Cementer Goal (LTG) Pt will report pain 2/10 or less with daily functional activities. LTG Duration 12 weeks Assessment Summary Assessment Fair tolerance for aquatic ex with improved tolerance for hamstring and IT band stretching today. Resistant to performing HEP as states I have enough to do at home. Physical Therapy Plan Frequency and Duration Frequency of Treatment 2x/Week Duration of Treatment 12 weeks Plan of Care Start Date 12/27/18 Plan of Care End Date 03/21/19 Therapeutic Interventions Therapeutic Interventions Aquatic Therapy Balance Training Gait Training Home Exercise Program Manual Therapy Neuromuscular Re-education Orthotic/Prosthetic Management Patient/Caregiver Education Self-Care/Home Management Sensory Integration Soft Tissue Mobilization Taping Therapeutic Activities Therapeutic Exercises Next Visit Focus/Plan Next Note Type Treatment Note Next Visit Plan continue progression of aquatic PT as tolerated.
--- NOTE | 2019-01-12 11:00 | PT.OTN ---
Current Diagnoses Other intervertebral disc displacement, lumbar region (01/12/19) Physical Therapy Treatment Note PT-OP-A Visit Information Start: 12/27/18 17:26 Freq: Status: Active Protocol: Document 01/12/19 11:00 SAK (Rec: 01/14/19 16:14 SAK [id number]) Out-Patient Physical Therapy Visit Information Visit Information Visit Type Aquatic Treatment Note Visit Start Time 11:00 Visit Stop Time 11:45 Total Visit Minutes 45 Visit Number 6 Number of SODDER Visits 0 PT-OP-B Current Condition Start: 12/27/18 17:26 Freq: Status: Active Protocol: Document 12/27/18 11:20 RCC (Rec: 12/27/18 17:57 RCC [email or web address]) Current Condition History of Current Condition Onset Date 2 yrs Current Complaints low back pain, R knee pain, difficulty with lifting History of Current Condition Pt is a 68 y/o male presenting back to skilled physical therapy s/p surgical removal of portion of colon d/t colon cancer. Pt reports that he feels like he has no core musculature, and his low back is still painful with radiating pain down lateral L leg to foot. Pt admits that his radiating pain is somewhat less due to being laid-up over the past month recovering from surgery. Pt was enrolled in aquatic PT earlier this year and is motivated to get back into it. Pt reports bilateral foot numbness, and R leg weakness d/t having quadriceps reattachment in 2017 on the R. 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 do bee-keeping which includes lifting 50 lbs Current Functional Impairments (Reported) Functional Limitations- Mobility/Gait increases pain Functional Limitations- Recreation/ uanble to do bee-keeping due Hobbies to inability to lift Personal Factors Other Personal Factors That May Effect obesity, h/o angina/cardiac Therapy/Recovery issues, HTN, recent colon surgery/CA PT-OP-C Subjective Start: 12/27/18 17:26 Freq: Status: Active Protocol: Document 01/12/19 11:00 SAK (Rec: 01/14/19 16:14 SAK [id number]) OP-PT Subjective Patient Comments Patient Comments Was in [facility] having tests due to SOB but nothing found; all tests negative. PT-OP-G Mobility & Gait Start: 12/27/18 17:26 Freq: Status: Active Protocol: Document 12/27/18 11:20 RCC (Rec: 12/27/18 17:57 RCC [email or web address]) OP Mobility Evaluation Bed Mobility Rolling mod indep with increased time and pain Supine to and from Sit mod indep with increased time and pain OP Gait Assessment Gait Deviations General Gait Pattern Antalgic Decreased Stride Length Flexed Trunk Wide Based Gait Factors Limiting Gait Function Factors Limiting Gait Function Decreased Activity Tolerance Decreased Sensation Decreased Strength Limited Range of Motion Pain PT-OP-H Neuro Start: 12/27/18 17:26 Freq: Status: Active Protocol: Document 12/27/18 11:20 RCC (Rec: 12/27/18 17:57 RCC [email or web address]) Sensation Evaluation Gross Sensation Gross Sensation Left LE Impaired Right LE Impaired Comments Summary Comments pt reports B foot numbness PT-OP-K Range of Motion Start: 12/27/18 17:26 Freq: Status: Active Protocol: Document 12/27/18 11:20 RCC (Rec: 12/27/18 17:57 RCC [email or web address]) Knee Goniometric Range of Motion Knee Left Flexion Active (degrees) 126 Extension Active (degrees) 0 Right Knee ROM WFL No Flexion Active (degrees) 119 Extension Active (degrees) 4 Extension Passive (degrees) 0 PT-OP-M Strength Start: 12/27/18 17:26 Freq: Status: Active Protocol: Document 12/27/18 11:20 RCC (Rec: 12/27/18 17:57 RCC [email or web address]) Trunk Strength Trunk Manual Muscle Testing Core Stabilization Hooklying- holding scapula off of table (partial sit-up) 5 seconds Supine- bilateral leg lift/ hold 3 seconds Hip Strength Hip Manual Muscle Testing Right Flexion (L2) 4- Good- Extension (S1) 3- Fair- Abduction 3 Fair External Rotation 3+ Fair+ Internal Rotation 3+ Fair+ Left Flexion (L2) 4- Good- Extension (S1) 3- Fair- Abduction 3 Fair External Rotation 3+ Fair+ Internal Rotation 4- Good- Knee Strength Knee Manual Muscle Testing Right Flexion (S2) 4- Good- Extension (L3) 3+ Fair+ Left Flexion (S2) 4- Good- Extension (L3) 4 Good Ankle/Foot Strength Ankle and Foot Manual Muscle Testing Left Dorsiflexion (L4) 3 Fair Right Dorsiflexion (L4) 5 Normal Toe Strength Toe Manual Muscle Testing Right Great Toe Extension 5 Normal Left Great Toe Extension 3+ Fair+ PT-OP-S Aquatic Treatment Start: 12/27/18 17:26 Freq: Status: Active Protocol: Document 01/12/19 11:00 OSMAR (Rec: 01/14/19 16:14 [facility] [id number]) Aquatics Treatment Pool Entry/Exit Pool Entry/Exit Method Stairs Assistance Independent Water Walking lunge walking Water Level Chest Level Comments 2 laps march, straight leg march Water Level Chest Level Comments 2 laps fwd,bck,side Water Level Chest Level Comments 2 laps each Lower Extremity Exercises figure 8's Body Position Standing Comments with hip/knee flexed at 90/90, leading with knee HS curls Details standing at wall w/min hand support Body Position Standing Water Level Chest Level Reps/Duration 2x10 bilat Comments cues for no hip flexion and erect posture HS curls and kickbacks Details standing at wall w/min hand support Body Position Standing Water Level Chest Level Reps/Duration 2x10 bilat Comments cues for no hip flexion and erect posture CC,CCW Details standing at wall w/min hand support Body Position Standing Water Level Chest Level Reps/Duration 2x 10 bilat Comments cues for core stab squats Water Level Waist Level Reps/Duration 10x Comments VC for core stab and muscle sequencing hip flex/ext, ab/ad Details standing at wall w/min hand support Body Position Standing Water Level Chest Level Reps/Duration 2x10 bilat Comments cues for core stab Lower Extremity Stretches lateral trunk and ITb stretch Body Position Standing Water Level Chest Level Reps/Duration 2x Comments holding wall piriformis, hip ER Comments 2x 30 sec bilat hamstring, ITB, add Details at wall Body Position Standing Water Level Chest Level Equipment Large Noodle Reps/Duration 2x 30 sec hold Upper Extremity Exercises bicep, tricep Body Position Standing Water Level Chest Level Equipment UE paddles Comments cues for core stab lat pull down, IR/ER Body Position Standing Water Level Chest Level Reps/Duration 10 bilat Comments cues for core stab hor ab/ad, flex/ext Water Level Chest Level Reps/Duration 10 renato, Comments while side stepping Upper Extremity Stretches walking w/paddles Water Level Chest Level Reps/Duration 30 M Spinal Exercises deep water hang Body Position Standing Water Level [place] Equipment blue float Balance stop start walking Water Level Chest Level Equipment 5 min standing stabilization w/perturbations Body Position Standing Water Level Chest Level Reps/Duration 4 min Comments pt with difficulty in coordinating trunk mms [place] Activities [place] Activities Bicycle Cross [place] Hip Abduction/Adduction Other Activities SLR in corner Equipment blue float Duration 15 min Comments Pt requiring cues for glute activation and minimizing hip flexion. Pt unable to fully extend knees in CC ski Other hamstring nerve glides Body Position Standing Water Level Chest Level PT-OP-T Assessment and Plan Start: 12/27/18 17:26 Freq: Status: Active Protocol: Document 01/12/19 11:00 SAK (Rec: 01/14/19 16:14 [facility] [id number]) Physical Therapy Assessment Goals Recreational Activities 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 with bee- keeping (unable to lift hive ~ 50 lbs) Salvage Cutter Goal (LTG) Pt will be demonstrate the ability to lift 50 lbs with good body mechanics and no verbal cuing to return to indep bee-keeping. LTG Duration 12 weeks Perceived Disability Impairment Modified Oswestry Score 40% Salvage Cutter Goal (LTG) Pt will grade overall perceived disability on the Modified Oswestry Questionnaire to at least 28% or less. LTG Duration 12 weeks knowledge deficit Impairment pt not indep. with aquatic home program Nursing Home Goal (LTG) Pt will report tolerance to indep. aquatic home exercise program for 45 min, 2x/wk (4 total if including PT treatments). LTG Duration 12 weeks weakness Impairment Core and LE weakness Short Term Goal (STG) Pt will have MMT of LE strength graded 4/5 or greater . STG Duration 6 weeks Nursing Home Goal (LTG) Pt will have MMT of LE strength graded 4+/5 or greater, and be able to hold scapula off of table in partial sit-up position, as well as hold BLE lift for 10 seconds with each instance. LTG Duration 12 weeks pain Impairment 6/10 pain in low back, LLE Short Term Goal (STG) Pt will report pain 4/10 or less with daily functional activities. STG Duration 6 weeks Salvage Cutter Goal (LTG) Pt will report pain 2/10 or less with daily functional activities. LTG Duration 12 weeks Assessment Summary Assessment Improved symptoms with nerve glides. Tolerated aquatic ex session well. Physical Therapy Plan Frequency and Duration Frequency of Treatment 2x/Week Duration of Treatment 12 weeks Plan of Care Start Date 12/27/18 Plan of Care End Date 03/21/19 Therapeutic Interventions Therapeutic Interventions Aquatic Therapy Balance Training Gait Training Home Exercise Program Manual Therapy Neuromuscular Re-education Orthotic/Prosthetic Management Patient/Caregiver Education Self-Care/Home Management Sensory Integration Soft Tissue Mobilization Taping Therapeutic Activities Therapeutic Exercises Discharge Physical Therapy Discharge Comments Completed PT. Patient to have surgery on intestines. Next Visit Focus/Plan Next Note Type Treatment Note Next Visit Plan Continue with nerve glides and flossing, progression of aquatic exercises.
--- NOTE | 2019-01-15 14:53 | PT.OTN ---
Current Diagnoses Other intervertebral disc displacement, lumbar region (01/15/19) Physical Therapy Treatment Note PT-OP-A Visit Information Start: 12/27/18 17:26 Freq: Status: Active Protocol: Document 01/15/19 14:47 SAK (Rec: 01/15/19 14:53 SAK [id number]) Out-Patient Physical Therapy Visit Information Visit Information Visit Type Aquatic Treatment Note Visit Start Time 11:00 Visit Stop Time 11:45 Total Visit Minutes 45 Visit Number 7 Number of TRANSFER CAR OPERATOR DRIER Visits 0 PT-OP-B Current Condition Start: 12/27/18 17:26 Freq: Status: Active Protocol: Document 12/27/18 11:20 RCC (Rec: 12/27/18 17:57 RCC [email or web address]) Current Condition History of Current Condition Onset Date 2 yrs Current Complaints low back pain, R knee pain, difficulty with lifting History of Current Condition Pt is a 68 y/o male presenting back to skilled physical therapy s/p surgical removal of portion of colon d/t colon cancer. Pt reports that he feels like he has no core musculature, and his low back is still painful with radiating pain down lateral L leg to foot. Pt admits that his radiating pain is somewhat less due to being laid-up over the past month recovering from surgery. Pt was enrolled in aquatic PT earlier this year and is motivated to get back into it. Pt reports bilateral foot numbness, and R leg weakness d/t having quadriceps reattachment in 2017 on the R. 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 do bee-keeping which includes lifting 50 lbs Current Functional Impairments (Reported) Functional Limitations- Mobility/Gait increases pain Functional Limitations- Recreation/ uanble to do bee-keeping due Hobbies to inability to lift Personal Factors Other Personal Factors That May Effect obesity, h/o angina/cardiac Therapy/Recovery issues, HTN, recent colon surgery/CA PT-OP-C Subjective Start: 12/27/18 17:26 Freq: Status: Active Protocol: Document 01/15/19 14:47 SAK (Rec: 01/15/19 14:53 SAK [id number]) OP-PT Subjective Patient Comments Patient Comments No new c/o. Seeing physician this week about his persistent knee pain. Reports had decreased sciatic pain over the weekend after last PT session. PT-OP-G Mobility & Gait Start: 12/27/18 17:26 Freq: Status: Active Protocol: Document 12/27/18 11:20 RCC (Rec: 12/27/18 17:57 RCC [email or web address]) OP Mobility Evaluation Bed Mobility Rolling mod indep with increased time and pain Supine to and from Sit mod indep with increased time and pain OP Gait Assessment Gait Deviations General Gait Pattern Antalgic Decreased Stride Length Flexed Trunk Wide Based Gait Factors Limiting Gait Function Factors Limiting Gait Function Decreased Activity Tolerance Decreased Sensation Decreased Strength Limited Range of Motion Pain PT-OP-H Neuro Start: 12/27/18 17:26 Freq: Status: Active Protocol: Document 12/27/18 11:20 RCC (Rec: 12/27/18 17:57 RCC [email or web address]) Sensation Evaluation Gross Sensation Gross Sensation Left LE Impaired Right LE Impaired Comments Summary Comments pt reports B foot numbness PT-OP-K Range of Motion Start: 12/27/18 17:26 Freq: Status: Active Protocol: Document 12/27/18 11:20 RCC (Rec: 12/27/18 17:57 [facility] [id number]) Knee Goniometric Range of Motion Knee Left Flexion Active (degrees) 126 Extension Active (degrees) 0 Right Knee ROM WFL No Flexion Active (degrees) 119 Extension Active (degrees) 4 Extension Passive (degrees) 0 PT-OP-M Strength Start: 12/27/18 17:26 Freq: Status: Active Protocol: Document 12/27/18 11:20 RCC (Rec: 12/27/18 17:57 [facility] [id number]) Trunk Strength Trunk Manual Muscle Testing Core Stabilization Hooklying- holding scapula off of table (partial sit-up) 5 seconds Supine- bilateral leg lift/ hold 3 seconds Hip Strength Hip Manual Muscle Testing Right Flexion (L2) 4- Good- Extension (S1) 3- Fair- Abduction 3 Fair External Rotation 3+ Fair+ Internal Rotation 3+ Fair+ Left Flexion (L2) 4- Good- Extension (S1) 3- Fair- Abduction 3 Fair External Rotation 3+ Fair+ Internal Rotation 4- Good- Knee Strength Knee Manual Muscle Testing Right Flexion (S2) 4- Good- Extension (L3) 3+ Fair+ Left Flexion (S2) 4- Good- Extension (L3) 4 Good Ankle/Foot Strength Ankle and Foot Manual Muscle Testing Left Dorsiflexion (L4) 3 Fair Right Dorsiflexion (L4) 5 Normal Toe Strength Toe Manual Muscle Testing Right Great Toe Extension 5 Normal Left Great Toe Extension 3+ Fair+ PT-OP-S Aquatic Treatment Start: 12/27/18 17:26 Freq: Status: Active Protocol: Document 01/15/19 14:47 [facility] (Rec: 01/15/19 14:53 SAK [id number]) Aquatics Treatment Pool Entry/Exit Pool Entry/Exit Method Stairs Assistance Independent Water Walking quick reverses fwd/bck Water Level Chest Level Walking Equipment Resistance Fins Level of Assistance Verbal Cues march, straight leg march Water Level Chest Level Walking Equipment Resistance Fins Level of Assistance Verbal Cues Comments 2 laps fwd,bck,side Water Level Chest Level Walking Equipment Resistance Fins Level of Assistance Verbal Cues Comments 2 laps each Lower Extremity Exercises figure 8's Body Position Standing Comments with hip/knee flexed at 90/90, leading with knee HS curls Details standing at wall w/min hand support Body Position Standing Water Level Chest Level Reps/Duration 2x10 bilat Comments cues for no hip flexion and erect posture HS curls and kickbacks Details standing at wall w/min hand support Body Position Standing Water Level Chest Level Reps/Duration 2x10 bilat Comments cues for no hip flexion and erect posture CC,CCW Details standing at wall w/min hand support Body Position Standing Water Level Chest Level Reps/Duration 2x 10 bilat Comments cues for core stab squats Water Level Waist Level Reps/Duration 20x Comments VC for core stab and muscle sequencing hip flex/ext, ab/ad Details standing at wall w/min hand support Body Position Standing Water Level Chest Level Reps/Duration 2x10 bilat Comments cues for core stab Lower Extremity Stretches lateral trunk and ITb stretch Body Position Standing Water Level Chest Level Reps/Duration 2x Comments holding wall hamstring, ITB, add Details at wall Body Position Standing Water Level Chest Level Equipment Large Noodle Reps/Duration 2x 30 sec hold Upper Extremity Exercises bicep, tricep Body Position Standing Water Level Chest Level Equipment UE paddles Comments cues for core stab lat pull down, IR/ER Body Position Standing Water Level Chest Level Reps/Duration 10 bilat Comments cues for core stab hor ab/ad, flex/ext Water Level Chest Level Reps/Duration 10 renato, Comments while side stepping [place] Activities [place] Activities Bicycle Cross [place] Hip Abduction/Adduction Other Activities SLR in corner Equipment belt Duration 15 min Comments 5 rounds intervals 30:30 tethered Other hamstring nerve glides Body Position Standing Water Level Chest Level Comments also nerve flossing PT-OP-T Assessment and Plan Start: 12/27/18 17:26 Freq: Status: Active Protocol: Document 01/15/19 14:47 [facility] (Rec: 01/15/19 14:53 [facility] [id number]) Physical Therapy Assessment Goals Recreational Activities 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 LTG Duration 12 weeks Perceived Disability Impairment Modified Oswestry Score 40% Log Handler Goal (LTG) Pt will grade overall perceived disability on the Modified Oswestry Questionnaire to at least 28% or less. LTG Duration 12 weeks knowledge deficit Impairment pt not indep. with aquatic home program Shelter Goal (LTG) Pt will report tolerance to indep. aquatic home exercise program for 45 min, 2x/wk (4 total if including PT treatments). LTG Duration 12 weeks weakness Impairment Core and LE weakness Short Term Goal (STG) Pt will have MMT of LE strength graded 4/5 or greater . STG Duration 6 weeks Shelter Goal (LTG) Pt will have MMT of LE strength graded 4+/5 or greater, and be able to hold scapula off of table in partial sit-up position, as well as hold BLE lift for 10 seconds with each instance. LTG Duration 12 weeks pain Impairment 6/10 pain in low back, LLE Short Term Goal (STG) Pt will report pain 4/10 or less with daily functional activities. STG Duration 6 weeks Shelter Goal (LTG) Pt will report pain 2/10 or less with daily functional activities. LTG Duration 12 weeks Physical Therapy Plan Frequency and Duration Frequency of Treatment 2x/Week Duration of Treatment 12 weeks Plan of Care Start Date 12/27/18 Plan of Care End Date 03/21/19 Therapeutic Interventions Therapeutic Interventions Aquatic Therapy Balance Training Gait Training Home Exercise Program Manual Therapy Neuromuscular Re-education Orthotic/Prosthetic Management Patient/Caregiver Education Self-Care/Home Management Sensory Integration Soft Tissue Mobilization Taping Therapeutic Activities Therapeutic Exercises Discharge Physical Therapy Discharge Comments Completed PT. Patient to have surgery on intestines. Next Visit Focus/Plan Next Note Type Treatment Note Next Visit Plan Progress with aquatic exercise as tolerated with continued emphasis on postural alignment , core stabilization and correct muscle activation patterns.
--- NOTE | 2019-01-17 13:20 | PT.OTN ---
Current Diagnoses Other intervertebral disc displacement, lumbar region (01/15/19) Physical Therapy Treatment Note PT-OP-A Visit Information Start: 12/27/18 17:26 Freq: Status: Active Protocol: Document 01/17/19 11:00 LJ (Rec: 01/17/19 13:18 LJ [email or web address]) Out-Patient Physical Therapy Visit Information Visit Information Visit Type Aquatic Treatment Note Visit Start Time 11:00 Visit Stop Time 11:45 Total Visit Minutes 45 Visit Number 8 Number of FINANCE BUSINESS PARTNER Visits 1 PT-OP-B Current Condition Start: 12/27/18 17:26 Freq: Status: Active Protocol: Document 12/27/18 11:20 RCC (Rec: 12/27/18 17:57 RCC [email or web address]) Current Condition History of Current Condition Onset Date 2 yrs Current Complaints low back pain, R knee pain, difficulty with lifting History of Current Condition Pt is a 68 y/o male presenting back to skilled physical therapy s/p surgical removal of portion of colon d/t colon cancer. Pt reports that he feels like he has no core musculature, and his low back is still painful with radiating pain down lateral L leg to foot. Pt admits that his radiating pain is somewhat less due to being laid-up over the past month recovering from surgery. Pt was enrolled in aquatic PT earlier this year and is motivated to get back into it. Pt reports bilateral foot numbness, and R leg weakness d/t having quadriceps reattachment in 2017 on the R. 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 do bee-keeping which includes lifting 50 lbs Current Functional Impairments (Reported) Functional Limitations- Mobility/Gait increases pain Functional Limitations- Recreation/ uanble to do bee-keeping due Hobbies to inability to lift Personal Factors Other Personal Factors That May Effect obesity, h/o angina/cardiac Therapy/Recovery issues, HTN, recent colon surgery/CA PT-OP-C Subjective Start: 12/27/18 17:26 Freq: Status: Active Protocol: Document 01/17/19 11:00 LJ (Rec: 01/17/19 13:18 LJ [email or web address]) OP-PT Subjective Patient Comments Patient Comments Pt has not had sciatic pain for several days. States he is going to [place] to have several appointments at [place] in which they will determine shat will be the course of action concerning his knee. PT-OP-G Mobility & Gait Start: 12/27/18 17:26 Freq: Status: Active Protocol: Document 12/27/18 11:20 RCC (Rec: 12/27/18 17:57 RCC [email or web address]) OP Mobility Evaluation Bed Mobility Rolling mod indep with increased time and pain Supine to and from Sit mod indep with increased time and pain OP Gait Assessment Gait Deviations General Gait Pattern Antalgic Decreased Stride Length Flexed Trunk Wide Based Gait Factors Limiting Gait Function Factors Limiting Gait Function Decreased Activity Tolerance Decreased Sensation Decreased Strength Limited Range of Motion Pain PT-OP-H Neuro Start: 12/27/18 17:26 Freq: Status: Active Protocol: Document 12/27/18 11:20 RCC (Rec: 12/27/18 17:57 RCC [email or web address]) Sensation Evaluation Gross Sensation Gross Sensation Left LE Impaired Right LE Impaired Comments Summary Comments pt reports B foot numbness PT-OP-K Range of Motion Start: 12/27/18 17:26 Freq: Status: Active Protocol: Document 12/27/18 11:20 RCC (Rec: 12/27/18 17:57 RCC [email or web address]) Knee Goniometric Range of Motion Knee Left Flexion Active (degrees) 126 Extension Active (degrees) 0 Right Knee ROM WFL No Flexion Active (degrees) 119 Extension Active (degrees) 4 Extension Passive (degrees) 0 PT-OP-M Strength Start: 12/27/18 17:26 Freq: Status: Active Protocol: Document 12/27/18 11:20 RCC (Rec: 12/27/18 17:57 RCC [email or web address]) Trunk Strength Trunk Manual Muscle Testing Core Stabilization Hooklying- holding scapula off of table (partial sit-up) 5 seconds Supine- bilateral leg lift/ hold 3 seconds Hip Strength Hip Manual Muscle Testing Right Flexion (L2) 4- Good- Extension (S1) 3- Fair- Abduction 3 Fair External Rotation 3+ Fair+ Internal Rotation 3+ Fair+ Left Flexion (L2) 4- Good- Extension (S1) 3- Fair- Abduction 3 Fair External Rotation 3+ Fair+ Internal Rotation 4- Good- Knee Strength Knee Manual Muscle Testing Right Flexion (S2) 4- Good- Extension (L3) 3+ Fair+ Left Flexion (S2) 4- Good- Extension (L3) 4 Good Ankle/Foot Strength Ankle and Foot Manual Muscle Testing Left Dorsiflexion (L4) 3 Fair Right Dorsiflexion (L4) 5 Normal Toe Strength Toe Manual Muscle Testing Right Great Toe Extension 5 Normal Left Great Toe Extension 3+ Fair+ PT-OP-S Aquatic Treatment Start: 12/27/18 17:26 Freq: Status: Active Protocol: Document 01/17/19 11:00 LJ (Rec: 01/17/19 13:18 LJ [email or web address]) Aquatics Treatment Pool Entry/Exit Pool Entry/Exit Method Stairs Assistance Independent Water Walking backward step up on box Water Level Waist Level Comments pt improved since last time in therapy quick reverses fwd/bck Water Level Chest Level Walking Equipment Resistance Fins Level of Assistance Verbal Cues lunge walking Water Level Chest Level Comments 2 laps march, straight leg september Water Level Chest Level Walking Equipment Resistance Fins Level of Assistance Verbal Cues Comments 2 laps fwd,bck,side Water Level Chest Level Walking Equipment Resistance Fins Level of Assistance Verbal Cues Comments 2 laps each Lower Extremity Exercises figure 8's Body Position Standing Comments with hip/knee flexed at 90/90, leading with knee HS curls Details standing at wall w/min hand support Body Position Standing Water Level Chest Level Reps/Duration 2x10 bilat Comments cues for no hip flexion and erect posture HS curls and kickbacks Details standing at wall w/min hand support Body Position Standing Water Level Chest Level Reps/Duration 2x10 bilat Comments cues for no hip flexion and erect posture CC,CCW Details standing at wall w/min hand support Body Position Standing Water Level Chest Level Reps/Duration 2x 10 bilat Comments cues for core stab squats Details split squats Water Level Waist Level Reps/Duration 20x Comments slight handhold for balance hip flex/ext, ab/ad Details standing at wall w/min hand support Body Position Standing Water Level Chest Level Reps/Duration 2x10 bilat Comments increased effort Lower Extremity Stretches lateral trunk and ITb stretch Body Position Standing Water Level Chest Level Reps/Duration 2x Comments holding wall piriformis, hip ER Comments 2x 30 sec bilat hamstring, ITB, add Details at wall Body Position Standing Water Level Chest Level Equipment Large Noodle Reps/Duration 2x 30 sec hold Upper Extremity Exercises stretch cords-rows, pull downs Body Position Standing Water Level Chest Level Reps/Duration 2x10 Comments cues for scap retraction Upper Extremity Stretches walking w/paddles Water Level Chest Level Reps/Duration 30 M Balance stop start walking Water Level Chest Level Equipment 5 min [place] Activities [place] Activities Bicycle [place] Equipment belt Duration 10 Comments 6 rounds intervals 30:30 tethered Other hamstring nerve glides Body Position Standing Water Level Chest Level Comments also nerve flossing PT-OP-T Assessment and Plan Start: 12/27/18 17:26 Freq: Status: Active Protocol: Document 01/17/19 11:00 JAMIN (Rec: 01/17/19 13:18 LJ [email or web address]) Physical Therapy Assessment Goals Recreational Activities 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 with bee- keeping (unable to lift hive ~ 50 lbs) [facility] Goal (LTG) Pt will be demonstrate the ability to lift 50 lbs with good body mechanics and no verbal cuing to return to indep bee-keeping. LTG Duration 12 weeks Perceived Disability Impairment Modified Oswestry Score 40% [employer] Goal (LTG) Pt will grade overall perceived disability on the Modified Oswestry Questionnaire to at least 28% or less. LTG Duration 12 weeks knowledge deficit Impairment pt not indep. with aquatic home program [facility] Goal (LTG) Pt will report tolerance to indep. aquatic home exercise program for 45 min, 2x/wk (4 total if including PT treatments). LTG Duration 12 weeks weakness Impairment Core and LE weakness Short Term Goal (STG) Pt will have MMT of LE strength graded 4/5 or greater . STG Duration 6 weeks [employer] G[employer] Goal (LTG) Pt will have MMT of LE strength graded 4+/5 or greater, and be able to hold scapula off of table in partial sit-up position, as well as hold BLE lift for 10 seconds with each instance. LTG Duration 12 weeks pain Impairment 6/10 pain in low back, LLE Short Term Goal (STG) Pt will report pain 4/10 or less with daily functional activities. STG Duration 6 weeks [employer]ber Girdler Goal (LTG) Pt will report pain 2/10 or less with daily functional activities. LTG Duration 12 weeks Assessment Summary Assessment Improved posture with exercises. Much improved balance and ability to perform backward step ups on boxes. Good posturre with split squats on boxes Physical Therapy Plan Frequency and Duration Frequency of Treatment 2x/Week Duration of Treatment 12 weeks Plan of Care Start Date 12/27/18 Plan of Care End Date 03/21/19 Therapeutic Interventions Therapeutic Interventions Aquatic Therapy Balance Training Gait Training Home Exercise Program Manual Therapy Neuromuscular Re-education Orthotic/Prosthetic Management Patient/Caregiver Education Self-Care/Home Management Sensory Integration Soft Tissue Mobilization Taping Therapeutic Activities Therapeutic Exercises Next Visit Focus/Plan Next Note Type Treatment Note Next Visit Plan Progress with aquatic exercise as tolerated with continued emphasis on postural alignment , core stabilization and correct muscle activation patterns.
--- NOTE | 2019-01-24 16:58 | PT.OTN ---
Current Diagnoses Other intervertebral disc displacement, lumbar region (01/24/19) Physical Therapy Treatment Note PT-OP-A Visit Information Start: 12/27/18 17:26 Freq: Status: Active Protocol: Document 01/24/19 16:53 SAK (Rec: 01/24/19 16:58 SAK [id number]) Out-Patient Physical Therapy Visit Information Visit Information Visit Type Aquatic Treatment Note Visit Start Time 12:15 Visit Stop Time 13:00 Total Visit Minutes 45 Visit Number 9 Number of HEATING REPAIR TECHNICIAN Visits 0 PT-OP-B Current Condition Start: 12/27/18 17:26 Freq: Status: Active Protocol: Document 12/27/18 11:20 RCC (Rec: 12/27/18 17:57 RCC [email or web address]) Current Condition History of Current Condition Onset Date 2 yrs Current Complaints low back pain, R knee pain, difficulty with lifting History of Current Condition Pt is a 68 y/o male presenting back to skilled physical therapy s/p surgical removal of portion of colon d/t colon cancer. Pt reports that he feels like he has no core musculature, and his low back is still painful with radiating pain down lateral L leg to foot. Pt admits that his radiating pain is somewhat less due to being laid-up over the past month recovering from surgery. Pt was enrolled in aquatic PT earlier this year and is motivated to get back into it. Pt reports bilateral foot numbness, and R leg weakness d/t having quadriceps reattachment in 2017 on the R. 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 do bee-keeping which includes lifting 50 lbs Current Functional Impairments (Reported) Functional Limitations- Mobility/Gait increases pain Functional Limitations- Recreation/ uanble to do bee-keeping due Hobbies to inability to lift Personal Factors Other Personal Factors That May Effect obesity, h/o angina/cardiac Therapy/Recovery issues, HTN, recent colon surgery/CA PT-OP-C Subjective Start: 12/27/18 17:26 Freq: Status: Active Protocol: Document 01/24/19 16:53 SAK (Rec: 01/24/19 16:58 SAK [id number]) OP-PT Subjective Patient Comments Patient Comments States the stretching in the pool is the only thing that helps with his pain. PT-OP-G Mobility & Gait Start: 12/27/18 17:26 Freq: Status: Active Protocol: Document 12/27/18 11:20 RCC (Rec: 12/27/18 17:57 RCC [email or web address]) OP Mobility Evaluation Bed Mobility Rolling mod indep with increased time and pain Supine to and from Sit mod indep with increased time and pain OP Gait Assessment Gait Deviations General Gait Pattern Antalgic Decreased Stride Length Flexed Trunk Wide Based Gait Factors Limiting Gait Function Factors Limiting Gait Function Decreased Activity Tolerance Decreased Sensation Decreased Strength Limited Range of Motion Pain PT-OP-H Neuro Start: 12/27/18 17:26 Freq: Status: Active Protocol: Document 12/27/18 11:20 RCC (Rec: 12/27/18 17:57 RCC [email or web address]) Sensation Evaluation Gross Sensation Gross Sensation Left LE Impaired Right LE Impaired Comments Summary Comments pt reports B foot numbness PT-OP-K Range of Motion Start: 12/27/18 17:26 Freq: Status: Active Protocol: Document 12/27/18 11:20 RCC (Rec: 12/27/18 17:57 RCC [email or web address]) Knee Goniometric Range of Motion Knee Left Flexion Active (degrees) 126 Extension Active (degrees) 0 Right Knee ROM WFL No Flexion Active (degrees) 119 Extension Active (degrees) 4 Extension Passive (degrees) 0 PT-OP-M Strength Start: 12/27/18 17:26 Freq: Status: Active Protocol: Document 12/27/18 11:20 RCC (Rec: 12/27/18 17:57 RCC [email or web address]) Trunk Strength Trunk Manual Muscle Testing Core Stabilization Hooklying- holding scapula off of table (partial sit-up) 5 seconds Supine- bilateral leg lift/ hold 3 seconds Hip Strength Hip Manual Muscle Testing Right Flexion (L2) 4- Good- Extension (S1) 3- Fair- Abduction 3 Fair External Rotation 3+ Fair+ Internal Rotation 3+ Fair+ Left Flexion (L2) 4- Good- Extension (S1) 3- Fair- Abduction 3 Fair External Rotation 3+ Fair+ Internal Rotation 4- Good- Knee Strength Knee Manual Muscle Testing Right Flexion (S2) 4- Good- Extension (L3) 3+ Fair+ Left Flexion (S2) 4- Good- Extension (L3) 4 Good Ankle/Foot Strength Ankle and Foot Manual Muscle Testing Left Dorsiflexion (L4) 3 Fair Right Dorsiflexion (L4) 5 Normal Toe Strength Toe Manual Muscle Testing Right Great Toe Extension 5 Normal Left Great Toe Extension 3+ Fair+ PT-OP-S Aquatic Treatment Start: 12/27/18 17:26 Freq: Status: Active Protocol: Document 01/24/19 16:53 [facility] (Rec: 01/24/19 16:58 [facility] [id number]) Aquatics Treatment Pool Entry/Exit Pool Entry/Exit Method Stairs Assistance Independent Water Walking backward step up on box Water Level Waist Level lunge walking Water Level Chest Level Comments 2 laps march, straight leg march Water Level Chest Level Walking Equipment Resistance Fins Level of Assistance Verbal Cues Comments 2 laps fwd,bck,side Water Level Chest Level Walking Equipment Resistance Fins Level of Assistance Verbal Cues Comments 2 laps each Lower Extremity Exercises figure 8's Body Position Standing Comments with hip/knee flexed at 90/90, leading with knee HS curls Details standing at wall w/min hand support Body Position Standing Water Level Chest Level Reps/Duration 2x10 bilat Comments cues for no hip flexion and erect posture HS curls and kickbacks Details standing at wall w/min hand support Body Position Standing Water Level Chest Level Reps/Duration 2x10 bilat Comments cues for no hip flexion and erect posture CC,CCW Details standing at wall w/min hand support Body Position Standing Water Level Chest Level Reps/Duration 2x 10 bilat Comments cues for core stab squats Details split squats Water Level Waist Level Reps/Duration 20x Comments slight handhold for balance hip flex/ext, ab/ad Details standing at wall w/min hand support Body Position Standing Water Level Chest Level Reps/Duration 2x10 bilat Comments increased effort Lower Extremity Stretches lateral trunk and ITb stretch Body Position Standing Water Level Chest Level Reps/Duration 2x Comments holding wall piriformis, hip ER Comments 2x 30 sec bilat hamstring, ITB, add Details at wall Body Position Standing Water Level Chest Level Equipment Large Noodle Reps/Duration 2x 30 sec hold [place] Activities [place] Activities Bicycle [place] Equipment belt Duration 10 Comments 10 rounds intervals 30:30 tethered Other hamstring nerve glides Body Position Standing Water Level Chest Level Comments also nerve flossing PT-OP-T Assessment and Plan Start: 12/27/18 17:26 Freq: Status: Active Protocol: Document 01/24/19 16:53 [facility] (Rec: 01/24/19 16:58 [facility] [id number]) Physical Therapy Assessment Goals Recreational Activities 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 with bee- keeping (unable to lift hive ~ 50 lbs) Facilities Project Manager Goal (LTG) Pt will be demonstrate the ability to lift 50 lbs with good body mechanics and no verbal cuing to return to indep bee-keeping. LTG Duration 12 weeks Perceived Disability Impairment Modified Oswestry Score 40% [place] Goal (LTG) Pt will grade overall perceived disability on the Modified Oswestry Questionnaire to at least 28% or less. LTG Duration 12 weeks knowledge deficit Impairment pt not indep. with aquatic home program Facilities Project Manager Goal (LTG) Pt will report tolerance to indep. aquatic home exercise program for 45 min, 2x/wk (4 total if including PT treatments). LTG Duration 12 weeks weakness Impairment Core and LE weakness Short Term Goal (STG) Pt will have MMT of LE strength graded 4/5 or greater . STG Duration 6 weeks Facilities Project Manager Goal (LTG) Pt will have MMT of LE strength graded 4+/5 or greater, and be able to hold scapula off of table in partial sit-up position, as well as hold BLE lift for 10 seconds with each instance. LTG Duration 12 weeks pain Impairment 6/10 pain in low back, LLE Short Term Goal (STG) Pt will report pain 4/10 or less with daily functional activities. STG Duration 6 weeks Facilities Project Manager Goal (LTG) Pt will report pain 2/10 or less with daily functional activities. LTG Duration 12 weeks Assessment Summary Assessment Patient progressing with improved exercise tolerance, decreased pain with nerve glides and stretching. Physical Therapy Plan Frequency and Duration Frequency of Treatment 2x/Week Duration of Treatment 12 weeks Plan of Care Start Date 12/27/18 Plan of Care End Date 03/21/19 Therapeutic Interventions Therapeutic Interventions Aquatic Therapy Balance Training Gait Training Home Exercise Program Manual Therapy Neuromuscular Re-education Orthotic/Prosthetic Management Patient/Caregiver Education Self-Care/Home Management Sensory Integration Soft Tissue Mobilization Taping Therapeutic Activities Therapeutic Exercises Next Visit Focus/Plan Next Note Type Treatment Note Next Visit Plan Continue PT per POC to decrease pain, improve strength and activity tolerance.
--- NOTE | 2019-01-26 15:21 | PT.OTN ---
Current Diagnoses Other intervertebral disc displacement, lumbar region (01/26/19) Physical Therapy Treatment Note PT-OP-A Visit Information Start: 12/27/18 17:26 Freq: Status: Active Protocol: Document 01/26/19 11:30 LJ (Rec: 01/26/19 15:07 LJ [email or web address]) Out-Patient Physical Therapy Visit Information Visit Information Visit Type Aquatic Treatment Note Visit Start Time 11:30 Visit Stop Time 12:15 Total Visit Minutes 45 Visit Number 10 Number of PRODUCT SAFETY TESTER Visits 1 PT-OP-B Current Condition Start: 12/27/18 17:26 Freq: Status: Active Protocol: Document 12/27/18 11:20 RCC (Rec: 12/27/18 17:57 RCC [email or web address]) Current Condition History of Current Condition Onset Date 2 yrs Current Complaints low back pain, R knee pain, difficulty with lifting History of Current Condition Pt is a 68 y/o male presenting back to skilled physical therapy s/p surgical removal of portion of colon d/t colon cancer. Pt reports that he feels like he has no core musculature, and his low back is still painful with radiating pain down lateral L leg to foot. Pt admits that his radiating pain is somewhat less due to being laid-up over the past month recovering from surgery. Pt was enrolled in aquatic PT earlier this year and is motivated to get back into it. Pt reports bilateral foot numbness, and R leg weakness d/t having quadriceps reattachment in 2017 on the R. 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 do bee-keeping which includes lifting 50 lbs Current Functional Impairments (Reported) Functional Limitations- Mobility/Gait increases pain Functional Limitations- Recreation/ uanble to do bee-keeping due Hobbies to inability to lift Personal Factors Other Personal Factors That May Effect obesity, h/o angina/cardiac Therapy/Recovery issues, HTN, recent colon surgery/CA PT-OP-C Subjective Start: 12/27/18 17:26 Freq: Status: Active Protocol: Document 01/26/19 11:30 LJ (Rec: 01/26/19 15:07 LJ [email or web address]) OP-PT Subjective Patient Comments Patient Comments Pt states he is stiff from operating his tractor yesterday but he isn't in pain PT-OP-G Mobility & Gait Start: 12/27/18 17:26 Freq: Status: Active Protocol: Document 12/27/18 11:20 RCC (Rec: 12/27/18 17:57 RCC [email or web address]) OP Mobility Evaluation Bed Mobility Rolling mod indep with increased time and pain Supine to and from Sit mod indep with increased time and pain OP Gait Assessment Gait Deviations General Gait Pattern Antalgic Decreased Stride Length Flexed Trunk Wide Based Gait Factors Limiting Gait Function Factors Limiting Gait Function Decreased Activity Tolerance Decreased Sensation Decreased Strength Limited Range of Motion Pain PT-OP-H Neuro Start: 12/27/18 17:26 Freq: Status: Active Protocol: Document 12/27/18 11:20 RCC (Rec: 12/27/18 17:57 RCC [email or web address]) Sensation Evaluation Gross Sensation Gross Sensation Left LE Impaired Right LE Impaired Comments Summary Comments pt reports B foot numbness PT-OP-K Range of Motion Start: 12/27/18 17:26 Freq: Status: Active Protocol: Document 12/27/18 11:20 RCC (Rec: 12/27/18 17:57 RCC [email or web address]) Knee Goniometric Range of Motion Knee Left Flexion Active (degrees) 126 Extension Active (degrees) 0 Right Knee ROM WFL No Flexion Active (degrees) 119 Extension Active (degrees) 4 Extension Passive (degrees) 0 PT-OP-M Strength Start: 12/27/18 17:26 Freq: Status: Active Protocol: Document 12/27/18 11:20 RCC (Rec: 12/27/18 17:57 RCC [email or web address]) Trunk Strength Trunk Manual Muscle Testing Core Stabilization Hooklying- holding scapula off of table (partial sit-up) 5 seconds Supine- bilateral leg lift/ hold 3 seconds Hip Strength Hip Manual Muscle Testing Right Flexion (L2) 4- Good- Extension (S1) 3- Fair- Abduction 3 Fair External Rotation 3+ Fair+ Internal Rotation 3+ Fair+ Left Flexion (L2) 4- Good- Extension (S1) 3- Fair- Abduction 3 Fair External Rotation 3+ Fair+ Internal Rotation 4- Good- Knee Strength Knee Manual Muscle Testing Right Flexion (S2) 4- Good- Extension (L3) 3+ Fair+ Left Flexion (S2) 4- Good- Extension (L3) 4 Good Ankle/Foot Strength Ankle and Foot Manual Muscle Testing Left Dorsiflexion (L4) 3 Fair Right Dorsiflexion (L4) 5 Normal Toe Strength Toe Manual Muscle Testing Right Great Toe Extension 5 Normal Left Great Toe Extension 3+ Fair+ PT-OP-S Aquatic Treatment Start: 12/27/18 17:26 Freq: Status: Active Protocol: Document 01/26/19 11:30 JAMIN (Rec: 01/26/19 15:07 LJ [email or web address]) Aquatics Treatment Pool Entry/Exit Pool Entry/Exit Method Stairs Assistance Independent Water Walking march, straight leg september Water Level Chest Level Walking Equipment Resistance Fins Level of Assistance Verbal Cues Comments 2 laps fwd,bck,side Water Level Chest Level Walking Equipment Resistance Fins Level of Assistance Verbal Cues Comments 2 laps each Lower Extremity Exercises HS curls Details standing at wall w/min hand support Body Position Standing Water Level Chest Level Equipment Ankle Floats Reps/Duration 2x10 bilat Comments cues for no hip flexion and erect posture HS curls and kickbacks Details standing at wall w/min hand support Body Position Standing Water Level Chest Level Equipment Ankle Floats Reps/Duration 2x10 bilat Comments cues for no hip flexion and erect posture CC,CCW Details standing at wall w/min hand support Body Position Standing Water Level Chest Level Equipment Ankle Floats Reps/Duration 2x 10 bilat Comments cues for core stab squats Details split squats Water Level Waist Level Reps/Duration 20x Comments slight handhold for balance hip flex/ext, ab/ad Details standing at wall w/min hand support Body Position Standing Water Level Chest Level Equipment Ankle Floats Reps/Duration 2x10 bilat Comments increased effort Lower Extremity Stretches lateral trunk and ITb stretch Body Position Standing Water Level Chest Level Reps/Duration 2x Comments holding wall piriformis, hip ER Comments 2x 30 sec bilat hamstring, ITB, add Details at wall Body Position Standing Water Level Chest Level Equipment Large Noodle Reps/Duration 2x 30 sec hold Upper Extremity Exercises stretch cords-rows, pull downs Body Position Standing Water Level Chest Level Reps/Duration 2x10 Comments cues for scap retraction Upper Extremity Stretches walking w/paddles Water Level Chest Level Reps/Duration 30 M Spinal Exercises spinal rotations w/2 stretch cords Body Position Standing Water Level Chest Level Reps/Duration 2 x 10 Comments both directions [place] Activities [place] Activities Bicycle [place] Hip Abduction/Adduction Other Activities pendulums lg BBs under knees rowing Equipment belt Duration 10 Comments 5 rounds 30/30 Other hamstring nerve glides Body Position Standing Water Level Chest Level Comments also nerve flossing PT-OP-T Assessment and Plan Start: 12/27/18 17:26 Freq: Status: Active Protocol: Document 01/26/19 11:30 JAMIN (Rec: 01/26/19 15:07 JAMIN [email or web address]) Physical Therapy Assessment Goals Recreational Activities 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 with bee- keeping (unable to lift hive ~ 50 lbs) Banquet Cook Goal (LTG) Pt will be demonstrate the ability to lift 50 lbs with good body mechanics and no verbal cuing to return to indep bee-keeping. LTG Duration 12 weeks Perceived Disability Impairment Modified Oswestry Score 40% Senior [facility] Goal (LTG) Pt will grade overall perceived disability on the Modified Oswestry Questionnaire to at least 28% or less. LTG Duration 12 weeks knowledge deficit Impairment pt not indep. with aquatic home program Banquet Cook Goal (LTG) Pt will report tolerance to indep. aquatic home exercise program for 45 min, 2x/wk (4 total if including PT treatments). LTG Duration 12 weeks weakness Impairment Core and LE weakness Short Term Goal (STG) Pt will have MMT of LE strength graded 4/5 or greater . STG Duration 6 weeks Senior Care Goal (LTG) Pt will have MMT of LE strength graded 4+/5 or greater, and be able to hold scapula off of table in partial sit-up position, as well as hold BLE lift for 10 seconds with each instance. LTG Duration 12 weeks pain Impairment 6/10 pain in low back, LLE Short Term Goal (STG) Pt will report pain 4/10 or less with daily functional activities. STG Duration 6 weeks Banquet [employer] Goal (LTG) Pt will report pain 2/10 or less with daily functional activities. LTG Duration 12 weeks Assessment Summary Assessment pt improving posture and balance with exercise. Demonstrates greater core control with deep water exercises. Less hand holding on wall Physical Therapy Plan Frequency and Duration Frequency of Treatment 2x/Week Duration of Treatment 12 weeks Plan of Care Start Date 12/27/18 Plan of Care End Date 03/21/19 Therapeutic Interventions Therapeutic Interventions Aquatic Therapy Balance Training Gait Training Home Exercise Program Manual Therapy Neuromuscular Re-education Orthotic/Prosthetic Management Patient/Caregiver Education Self-Care/Home Management Sensory Integration Soft Tissue Mobilization Taping Therapeutic Activities Therapeutic Exercises Next Visit Focus/Plan Next Note Type Treatment Note Next Visit Plan Progress aquatic exercises using resistance equipment to increase strength and reduce pain with activity
--- NOTE | 2019-01-26 16:03 | PT.OPPN ---
Current Diagnoses Other intervertebral disc displacement, lumbar region (01/29/19) Physical Therapy Progress Note PT-OP-A Visit Information Start: 12/27/18 17:26 Freq: Status: Active Protocol: Document 01/26/19 11:30 LJ (Rec: 01/26/19 15:07 LJ [email or web address]) Out-Patient Physical Therapy Visit Information Visit Information Visit Type Aquatic Treatment Note Visit Start Time 11:30 Visit Stop Time 12:15 Total Visit Minutes 45 Visit Number 10 Number of ALIGNMENT SPECIALIST Visits 1 PT-OP-B Current Condition Start: 12/27/18 17:26 Freq: Status: Active Protocol: Document 12/27/18 11:20 RCC (Rec: 12/27/18 17:57 RCC [email or web address]) Current Condition History of Current Condition Onset Date 2 yrs Current Complaints low back pain, R knee pain, difficulty with lifting History of Current Condition Pt is a 68 y/o male presenting back to skilled physical therapy s/p surgical removal of portion of colon d/t colon cancer. Pt reports that he feels like he has no core musculature, and his low back is still painful with radiating pain down lateral L leg to foot. Pt admits that his radiating pain is somewhat less due to being laid-up over the past month recovering from surgery. Pt was enrolled in aquatic PT earlier this year and is motivated to get back into it. Pt reports bilateral foot numbness, and R leg weakness d/t having quadriceps reattachment in 2017 on the R. 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 do bee-keeping which includes lifting 50 lbs Current Functional Impairments (Reported) Functional Limitations- Mobility/Gait increases pain Functional Limitations- Recreation/ uanble to do bee-keeping due Hobbies to inability to lift Personal Factors Other Personal Factors That May Effect obesity, h/o angina/cardiac Therapy/Recovery issues, HTN, recent colon surgery/CA PT-OP-C Subjective Start: 12/27/18 17:26 Freq: Status: Active Protocol: Document 01/26/19 11:30 LJ (Rec: 01/26/19 15:07 LJ [email or web address]) OP-PT Subjective Patient Comments Patient Comments Pt states he is stiff from operating his tractor yesterday but he isn't in pain PT-OP-G Mobility & Gait Start: 12/27/18 17:26 Freq: Status: Active Protocol: Document 12/27/18 11:20 RCC (Rec: 12/27/18 17:57 [facility] [email or web address]) OP Mobility Evaluation Bed Mobility Rolling mod indep with increased time and pain Supine to and from Sit mod indep with increased time and pain OP Gait Assessment Gait Deviations General Gait Pattern Antalgic Decreased Stride Length Flexed Trunk Wide Based Gait Factors Limiting Gait Function Factors Limiting Gait Function Decreased Activity Tolerance Decreased Sensation Decreased Strength Limited Range of Motion Pain PT-OP-H Neuro Start: 12/27/18 17:26 Freq: Status: Active Protocol: Document 12/27/18 11:20 RCC (Rec: 12/27/18 17:57 [facility] [email or web address]) Sensation Evaluation Gross Sensation Gross Sensation Left LE Impaired Right LE Impaired Comments Summary Comments pt reports B foot numbness PT-OP-K Range of Motion Start: 12/27/18 17:26 Freq: Status: Active Protocol: Document 12/27/18 11:20 RCC (Rec: 12/27/18 17:57 [facility] [email or web address]) Knee Goniometric Range of Motion Knee Measured in Degrees Left Flexion Active (degrees) 126 Extension Active (degrees) 0 Right Knee ROM WFL No Flexion Active (degrees) 119 Extension Active (degrees) 4 Extension Passive (degrees) 0 PT-OP-M Strength Start: 12/27/18 17:26 Freq: Status: Active Protocol: Document 12/27/18 11:20 RCC (Rec: 12/27/18 17:57 [facility] [email or web address]) Trunk Strength Trunk Manual Muscle Testing Core Stabilization Hooklying- holding scapula off of table (partial sit-up) 5 seconds Supine- bilateral leg lift/ hold 3 seconds Hip Strength Hip Manual Muscle Testing Right Flexion (L2) 4- Good- Extension (S1) 3- Fair- Abduction 3 Fair External Rotation 3+ Fair+ Internal Rotation 3+ Fair+ Left Flexion (L2) 4- Good- Extension (S1) 3- Fair- Abduction 3 Fair External Rotation 3+ Fair+ Internal Rotation 4- Good- Knee Strength Knee Manual Muscle Testing Right Flexion (S2) 4- Good- Extension (L3) 3+ Fair+ Left Flexion (S2) 4- Good- Extension (L3) 4 Good Ankle/Foot Strength Ankle and Foot Manual Muscle Testing Left Dorsiflexion (L4) 3 Fair Right Dorsiflexion (L4) 5 Normal Toe Strength Toe Manual Muscle Testing Right Great Toe Extension 5 Normal Left Great Toe Extension 3+ Fair+ PT-OP-T Assessment and Plan Start: 12/27/18 17:26 Freq: Status: Active Protocol: Document 01/26/19 11:30 JAMIN (Rec: 01/26/19 15:07 LJ [email or web address]) Physical Therapy Assessment Goals Recreational Activities 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 with bee- keeping (unable to lift hive ~ 50 lbs) Mcc Goal (LTG) Pt will be demonstrate the ability to lift 50 lbs with good body mechanics and no verbal cuing to return to indep bee-keeping. LTG Duration 12 weeks Perceived Disability Impairment Modified Oswestry Score 40% Mcc Goal (LTG) Pt will grade overall perceived disability on the Modified Oswestry Questionnaire to at least 28% or less. LTG Duration 12 weeks knowledge deficit Impairment pt not indep. with aquatic home program Mcc Goal (LTG) Pt will report tolerance to indep. aquatic home exercise program for 45 min, 2x/wk (4 total if including PT treatments). LTG Duration 12 weeks weakness Impairment Core and LE weakness Short Term Goal (STG) Pt will have MMT of LE strength graded 4/5 or greater . STG Duration 6 weeks [place] Goal (LTG) Pt will have MMT of LE strength graded 4+/5 or greater, and be able to hold scapula off of table in partial sit-up position, as well as hold BLE lift for 10 seconds with each instance. LTG Duration 12 weeks pain Impairment 6/10 pain in low back, LLE Short Term Goal (STG) Pt will report pain 4/10 or less with daily functional activities. STG Duration 6 weeks Mcc Goal (LTG) Pt will report pain 2/10 or less with daily functional activities. LTG Duration 12 weeks Assessment Summary Assessment pt improving posture and balance with exercise. Demonstrates greater core control with deep water exercises. Less hand holding on wall Physical Therapy Plan Frequency and Duration Frequency of Treatment 2x/Week Duration of Treatment 12 weeks Plan of Care Start Date 12/27/18 Plan of Care End Date 03/21/19 Therapeutic Interventions Therapeutic Interventions Aquatic Therapy Balance Training Gait Training Home Exercise Program Manual Therapy Neuromuscular Re-education Orthotic/Prosthetic Management Patient/Caregiver Education Self-Care/Home Management Sensory Integration Soft Tissue Mobilization Taping Therapeutic Activities Therapeutic Exercises Next Visit Focus/Plan Next Note Type Treatment Note Next Visit Plan Progress aquatic exercises using resistance equipment to increase strength and reduce pain with activity
--- NOTE | 2019-01-29 16:07 | PT.OTN ---
Current Diagnoses Other intervertebral disc displacement, lumbar region (01/29/19) Physical Therapy Treatment Note PT-OP-A Visit Information Start: 12/27/18 17:26 Freq: Status: Active Protocol: Document 01/29/19 16:04 SAK (Rec: 01/29/19 16:07 SAK [id number]) Out-Patient Physical Therapy Visit Information Visit Information Visit Type Aquatic Treatment Note Visit Start Time 11:30 Visit Stop Time 12:15 Total Visit Minutes 45 Visit Number 11 Number of [employer]ISHER [employer] Visits 0 PT-OP-B Current Condition Start: 12/27/18 17:26 Freq: Status: Active Protocol: Document 12/27/18 11:20 RCC (Rec: 12/27/18 17:57 RCC [email or web address]) Current Condition History of Current Condition Onset Date 2 yrs Current Complaints low back pain, R knee pain, difficulty with lifting History of Current Condition Pt is a 68 y/o male presenting back to skilled physical therapy s/p surgical removal of portion of colon d/t colon cancer. Pt reports that he feels like he has no core musculature, and his low back is still painful with radiating pain down lateral L leg to foot. Pt admits that his radiating pain is somewhat less due to being laid-up over the past month recovering from surgery. Pt was enrolled in aquatic PT earlier this year and is motivated to get back into it. Pt reports bilateral foot numbness, and R leg weakness d/t having quadriceps reattachment in 2017 on the R. 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 do bee-keeping which includes lifting 50 lbs Current Functional Impairments (Reported) Functional Limitations- Mobility/Gait increases pain Functional Limitations- Recreation/ uanble to do bee-keeping due Hobbies to inability to lift Personal Factors Other Personal Factors That May Effect obesity, h/o angina/cardiac Therapy/Recovery issues, HTN, recent colon surgery/CA PT-OP-C Subjective Start: 12/27/18 17:26 Freq: Status: Active Protocol: Document 01/29/19 16:04 SAK (Rec: 01/29/19 16:07 SAK [id number]) OP-PT Subjective Patient Comments Patient Comments Denied pain. PT-OP-G Mobility & Gait Start: 12/27/18 17:26 Freq: Status: Active Protocol: Document 12/27/18 11:20 RCC (Rec: 12/27/18 17:57 RCC [email or web address]) OP Mobility Evaluation Bed Mobility Rolling mod indep with increased time and pain Supine to and from Sit mod indep with increased time and pain OP Gait Assessment Gait Deviations General Gait Pattern Antalgic Decreased Stride Length Flexed Trunk Wide Based Gait Factors Limiting Gait Function Factors Limiting Gait Function Decreased Activity Tolerance Decreased Sensation Decreased Strength Limited Range of Motion Pain PT-OP-H Neuro Start: 12/27/18 17:26 Freq: Status: Active Protocol: Document 12/27/18 11:20 RCC (Rec: 12/27/18 17:57 RCC [email or web address]) Sensation Evaluation Gross Sensation Gross Sensation Left LE Impaired Right LE Impaired Comments Summary Comments pt reports B foot numbness PT-OP-K Range of Motion Start: 12/27/18 17:26 Freq: Status: Active Protocol: Document 12/27/18 11:20 RCC (Rec: 12/27/18 17:57 RCC [email or web address]) Knee Goniometric Range of Motion Knee Left Flexion Active (degrees) 126 Extension Active (degrees) 0 Right Knee ROM WFL No Flexion Active (degrees) 119 Extension Active (degrees) 4 Extension Passive (degrees) 0 PT-OP-M Strength Start: 12/27/18 17:26 Freq: Status: Active Protocol: Document 12/27/18 11:20 RCC (Rec: 12/27/18 17:57 RCC [email or web address]) Trunk Strength Trunk Manual Muscle Testing Core Stabilization Hooklying- holding scapula off of table (partial sit-up) 5 seconds Supine- bilateral leg lift/ hold 3 seconds Hip Strength Hip Manual Muscle Testing Right Flexion (L2) 4- Good- Extension (S1) 3- Fair- Abduction 3 Fair External Rotation 3+ Fair+ Internal Rotation 3+ Fair+ Left Flexion (L2) 4- Good- Extension (S1) 3- Fair- Abduction 3 Fair External Rotation 3+ Fair+ Internal Rotation 4- Good- Knee Strength Knee Manual Muscle Testing Right Flexion (S2) 4- Good- Extension (L3) 3+ Fair+ Left Flexion (S2) 4- Good- Extension (L3) 4 Good Ankle/Foot Strength Ankle and Foot Manual Muscle Testing Left Dorsiflexion (L4) 3 Fair Right Dorsiflexion (L4) 5 Normal Toe Strength Toe Manual Muscle Testing Right Great Toe Extension 5 Normal Left Great Toe Extension 3+ Fair+ PT-OP-S Aquatic Treatment Start: 12/27/18 17:26 Freq: Status: Active Protocol: Document 01/29/19 16:04 [facility] (Rec: 01/29/19 16:07 [facility] [id number]) Aquatics Treatment Pool Entry/Exit Pool Entry/Exit Method Stairs Assistance Independent Water Walking march, straight leg september Water Level Chest Level Walking Equipment Resistance Fins Level of Assistance Verbal Cues Comments 2 laps fwd,bck,side Water Level Chest Level Walking Equipment Resistance Fins Level of Assistance Verbal Cues Comments 2 laps each Lower Extremity Exercises HS curls Details standing at wall w/min hand support Body Position Standing Water Level Chest Level Equipment Ankle Floats Reps/Duration 2x10 bilat Comments cues for no hip flexion and erect posture HS curls and kickbacks Details standing at wall w/min hand support Body Position Standing Water Level Chest Level Equipment Ankle Floats Reps/Duration 2x10 bilat Comments cues for no hip flexion and erect posture CC,CCW Details standing at wall w/min hand support Body Position Standing Water Level Chest Level Equipment Ankle Floats Reps/Duration 2x 10 bilat Comments cues for core stab squats Details split squats Water Level Waist Level Reps/Duration 20x Comments slight handhold for balance hip flex/ext, ab/ad Details standing at wall w/min hand support Body Position Standing Water Level Chest Level Equipment Ankle Floats Reps/Duration 2x10 bilat Comments increased effort Lower Extremity Stretches lateral trunk and ITb stretch Body Position Standing Water Level Chest Level Reps/Duration 2x Comments holding wall piriformis, hip ER Comments 2x 30 sec bilat hamstring, ITB, add Details at wall [place] Activities [place] Activities Bicycle [place] Hip Abduction/Adduction Other Activities pendulums Equipment belt Duration 12 Comments 6 rounds 60/30 Other hamstring nerve glides Body Position Standing Water Level Chest Level Comments also nerve flossing PT-OP-T Assessment and Plan Start: 12/27/18 17:26 Freq: Status: Active Protocol: Document 01/29/19 16:04 OSMAR (Rec: 01/29/19 16:07 [facility] [id number]) Physical Therapy Assessment Goals Recreational Activities 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 with bee- keeping (unable to lift hive ~ 50 lbs) Halfway Goal (LTG) Pt will be demonstrate the ability to lift 50 lbs with good body mechanics and no verbal cuing to return to indep bee-keeping. LTG Duration 12 weeks Perceived Disability Impairment Modified Oswestry Score 40% Halfway Goal (LTG) Pt will grade overall perceived disability on the Modified Oswestry Questionnaire to at least 28% or less. LTG Duration 12 weeks knowledge deficit Impairment pt not indep. with aquatic home program Linen Clerk Goal (LTG) Pt will report tolerance to indep. aquatic home exercise program for 45 min, 2x/wk (4 total if including PT treatments). LTG Duration 12 weeks weakness Impairment Core and LE weakness Short Term Goal (STG) Pt will have MMT of LE strength graded 4/5 or greater . STG Duration 6 weeks Halfway Goal (LTG) Pt will have MMT of LE strength graded 4+/5 or greater, and be able to hold scapula off of table in partial sit-up position, as well as hold BLE lift for 10 seconds with each instance. LTG Duration 12 weeks pain Impairment 6/10 pain in low back, LLE Short Term Goal (STG) Pt will report pain 4/10 or less with daily functional activities. STG Duration 6 weeks Halfway Goal (LTG) Pt will report pain 2/10 or less with daily functional activities. LTG Duration 12 weeks Assessment Summary Assessment Progressed with intervals in deep water. Physical Therapy Plan Frequency and Duration Frequency of Treatment 2x/Week Duration of Treatment 12 weeks Plan of Care Start Date 12/27/18 Plan of Care End Date 03/21/19 Therapeutic Interventions Therapeutic Interventions Aquatic Therapy Balance Training Gait Training Home Exercise Program Manual Therapy Neuromuscular Re-education Orthotic/Prosthetic Management Patient/Caregiver Education Self-Care/Home Management Sensory Integration Soft Tissue Mobilization Taping Therapeutic Activities Therapeutic Exercises Next Visit Focus/Plan Next Note Type Treatment Note Next Visit Plan Progress aquatic exercises using resistance equipment to increase strength and reduce pain with activity. 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
--- NOTE | 2019-01-31 16:29 | PT.OTN ---
Current Diagnoses Other intervertebral disc displacement, lumbar region (01/31/19) Physical Therapy Treatment Note PT-OP-A Visit Information Start: 12/27/18 17:26 Freq: Status: Active Protocol: Document 01/31/19 16:21 SAK (Rec: 01/31/19 16:29 SAK [id number]) Out-Patient Physical Therapy Visit Information Visit Information Visit Type Aquatic Treatment Note Visit Start Time 12:15 Visit Stop Time 13:00 Total Visit Minutes 45 Visit Number 12 Number of [employer]IDE [employer]ANT SUPERVIS[employer] Visits 0 PT-OP-B Current Condition Start: 12/27/18 17:26 Freq: Status: Active Protocol: Document 12/27/18 11:20 RCC (Rec: 12/27/18 17:57 RCC [email or web address]) Current Condition History of Current Condition Onset Date 2 yrs Current Complaints low back pain, R knee pain, difficulty with lifting History of Current Condition Pt is a 68 y/o male presenting back to skilled physical therapy s/p surgical removal of portion of colon d/t colon cancer. Pt reports that he feels like he has no core musculature, and his low back is still painful with radiating pain down lateral L leg to foot. Pt admits that his radiating pain is somewhat less due to being laid-up over the past month recovering from surgery. Pt was enrolled in aquatic PT earlier this year and is motivated to get back into it. Pt reports bilateral foot numbness, and R leg weakness d/t having quadriceps reattachment in 2017 on the R. 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 do bee-keeping which includes lifting 50 lbs Current Functional Impairments (Reported) Functional Limitations- Mobility/Gait increases pain Functional Limitations- Recreation/ uanble to do bee-keeping due Hobbies to inability to lift Personal Factors Other Personal Factors That May Effect obesity, h/o angina/cardiac Therapy/Recovery issues, HTN, recent colon surgery/CA PT-OP-C Subjective Start: 12/27/18 17:26 Freq: Status: Active Protocol: Document 01/31/19 16:21 SAK (Rec: 01/31/19 16:29 SAK [id number]) OP-PT Subjective Patient Comments Patient Comments Denied pain. PT-OP-G Mobility & Gait Start: 12/27/18 17:26 Freq: Status: Active Protocol: Document 12/27/18 11:20 RCC (Rec: 12/27/18 17:57 RCC [email or web address]) OP Mobility Evaluation Bed Mobility Rolling mod indep with increased time and pain Supine to and from Sit mod indep with increased time and pain OP Gait Assessment Gait Deviations General Gait Pattern Antalgic Decreased Stride Length Flexed Trunk Wide Based Gait Factors Limiting Gait Function Factors Limiting Gait Function Decreased Activity Tolerance Decreased Sensation Decreased Strength Limited Range of Motion Pain PT-OP-H Neuro Start: 12/27/18 17:26 Freq: Status: Active Protocol: Document 12/27/18 11:20 RCC (Rec: 12/27/18 17:57 RCC [email or web address]) Sensation Evaluation Gross Sensation Gross Sensation Left LE Impaired Right LE Impaired Comments Summary Comments pt reports B foot numbness PT-OP-K Range of Motion Start: 12/27/18 17:26 Freq: Status: Active Protocol: Document 12/27/18 11:20 RCC (Rec: 12/27/18 17:57 RCC [email or web address]) Knee Goniometric Range of Motion Knee Left Flexion Active (degrees) 126 Extension Active (degrees) 0 Right Knee ROM WFL No Flexion Active (degrees) 119 Extension Active (degrees) 4 Extension Passive (degrees) 0 PT-OP-M Strength Start: 12/27/18 17:26 Freq: Status: Active Protocol: Document 12/27/18 11:20 RCC (Rec: 12/27/18 17:57 RCC [email or web address]) Trunk Strength Trunk Manual Muscle Testing Core Stabilization Hooklying- holding scapula off of table (partial sit-up) 5 seconds Supine- bilateral leg lift/ hold 3 seconds Hip Strength Hip Manual Muscle Testing Right Flexion (L2) 4- Good- Extension (S1) 3- Fair- Abduction 3 Fair External Rotation 3+ Fair+ Internal Rotation 3+ Fair+ Left Flexion (L2) 4- Good- Extension (S1) 3- Fair- Abduction 3 Fair External Rotation 3+ Fair+ Internal Rotation 4- Good- Knee Strength Knee Manual Muscle Testing Right Flexion (S2) 4- Good- Extension (L3) 3+ Fair+ Left Flexion (S2) 4- Good- Extension (L3) 4 Good Ankle/Foot Strength Ankle and Foot Manual Muscle Testing Left Dorsiflexion (L4) 3 Fair Right Dorsiflexion (L4) 5 Normal Toe Strength Toe Manual Muscle Testing Right Great Toe Extension 5 Normal Left Great Toe Extension 3+ Fair+ PT-OP-S Aquatic Treatment Start: 12/27/18 17:26 Freq: Status: Active Protocol: Document 01/31/19 16:21 OSMAR (Rec: 01/31/19 16:29 [facility] [id number]) Aquatics Treatment Pool Entry/Exit Pool Entry/Exit Method Stairs Assistance Independent Water Walking march, straight leg march Water Level Chest Level Walking Equipment Resistance Fins Level of Assistance Verbal Cues Comments 2 laps fwd,bck,side Water Level Chest Level Walking Equipment Resistance Fins Level of Assistance Verbal Cues Comments 2 laps each Lower Extremity Exercises figure 8's Body Position Standing Comments with hip/knee flexed at 90/90, leading with knee HS curls Details standing at wall w/min hand support Body Position Standing Water Level Chest Level Equipment resistance fins large Reps/Duration 2x10 bilat Comments cues for no hip flexion and erect posture HS curls and kickbacks Details standing at wall w/min hand support Body Position Standing Water Level Chest Level Equipment resistance fins large Reps/Duration 2x10 bilat Comments cues for no hip flexion and erect posture CC,CCW Details standing at wall w/min hand support Body Position Standing Water Level Chest Level Equipment resistance fins blue Reps/Duration 2x 10 bilat Comments cues for core stab squats Details split squats Water Level Waist Level Reps/Duration 20x Comments 8#, cues for body mechanics hip flex/ext, ab/ad Details standing at wall w/min hand support Body Position Standing Water Level Chest Level Equipment Resistance Fins Reps/Duration 2x10 bilat Comments increased effort Lower Extremity Stretches lateral trunk and ITb stretch Body Position Standing Water Level Chest Level Reps/Duration 2x Comments holding wall hamstring, ITB, add Details at wall Body Position Standing Water Level Chest Level Equipment large noodles (2) Reps/Duration [id number] hold Upper Extremity Exercises stretch cords-rows, pull downs Body Position Standing Water Level Chest Level Reps/Duration 2x10 Comments cues for scap retraction Spinal Exercises spinal rotations w/2 stretch cords Body Position Standing Water Level Chest Level Reps/Duration 2 x 10 Comments both directions [place] Activities [place] Activities Bicycle [place] Hip Abduction/Adduction Other Activities pendulums Iron cross pull downs renato and unil (large barbells) Equipment belt Duration 12 Comments 6 rounds 60/30 Other hamstring nerve glides Body Position Standing Water Level Chest Level Comments also nerve flossing PT-OP-T Assessment and Plan Start: 12/27/18 17:26 Freq: Status: Active Protocol: Document 01/31/19 16:21 [facility] (Rec: 01/31/19 16:29 [facility] [id number]) Physical Therapy Assessment Goals Recreational Activities 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 with bee- keeping (unable to lift hive ~ 50 lbs) Furnace Filler Goal (LTG) Pt will be demonstrate the ability to lift 50 lbs with good body mechanics and no verbal cuing to return to indep bee-keeping. LTG Duration 12 weeks Perceived Disability Impairment Modified Oswestry Score 40% [facility] Goal (LTG) Pt will grade overall perceived disability on the Modified Oswestry Questionnaire to at least 28% or less. LTG Duration 12 weeks knowledge deficit Impairment pt not indep. with aquatic home program [facility] Goal (LTG) Pt will report tolerance to indep. aquatic home exercise program for 45 min, 2x/wk (4 total if including PT treatments). LTG Duration 12 weeks weakness Impairment Core and LE weakness Short Term Goal (STG) Pt will have MMT of LE strength graded 4/5 or greater . STG Duration 6 weeks [facility] Goal (LTG) Pt will have MMT of LE strength graded 4+/5 or greater, and be able to hold scapula off of table in partial sit-up position, as well as hold BLE lift for 10 seconds with each instance. LTG Duration 12 weeks pain Impairment 6/10 pain in low back, LLE Short Term Goal (STG) Pt will report pain 4/10 or less with daily functional activities. STG Duration 6 weeks [facility] Goal (LTG) Pt will report pain 2/10 or less with daily functional activities. LTG Duration 12 weeks Assessment Summary Assessment tolerated 2 large noodles for LE stretching, cont to progress with ex. Mod cues for postural alignment and core stab
--- NOTE | 2019-02-05 14:27 | PT.OTN ---
Current Diagnoses Other intervertebral disc displacement, lumbar region (02/05/19) Physical Therapy Treatment Note PT-OP-A Visit Information Start: 12/27/18 17:26 Freq: Status: Active Protocol: Document 02/05/19 12:15 LJ (Rec: 02/05/19 14:27 LJ [email or web address]) Out-Patient Physical Therapy Visit Information Visit Information Visit Type Aquatic Treatment Note Visit Start Time 12:15 Visit Stop Time 13:00 Total Visit Minutes 45 Visit Number 13 Number of TENON MACHINE OPERATOR Visits 1 PT-OP-B Current Condition Start: 12/27/18 17:26 Freq: Status: Active Protocol: Document 12/27/18 11:20 RCC (Rec: 12/27/18 17:57 RCC [email or web address]) Current Condition History of Current Condition Onset Date 2 yrs Current Complaints low back pain, R knee pain, difficulty with lifting History of Current Condition Pt is a 68 y/o male presenting back to skilled physical therapy s/p surgical removal of portion of colon d/t colon cancer. Pt reports that he feels like he has no core musculature, and his low back is still painful with radiating pain down lateral L leg to foot. Pt admits that his radiating pain is somewhat less due to being laid-up over the past month recovering from surgery. Pt was enrolled in aquatic PT earlier this year and is motivated to get back into it. Pt reports bilateral foot numbness, and R leg weakness d/t having quadriceps reattachment in 2017 on the R. 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 do bee-keeping which includes lifting 50 lbs Current Functional Impairments (Reported) Functional Limitations- Mobility/Gait increases pain Functional Limitations- Recreation/ uanble to do bee-keeping due Hobbies to inability to lift Personal Factors Other Personal Factors That May Effect obesity, h/o angina/cardiac Therapy/Recovery issues, HTN, recent colon surgery/CA PT-OP-C Subjective Start: 12/27/18 17:26 Freq: Status: Active Protocol: Document 02/05/19 12:15 LJ (Rec: 02/05/19 14:27 LJ [email or web address]) OP-PT Subjective Patient Comments Patient Comments Pt states he is really dragging and has no energy today. Doesn't know why. Also states the last PT session left him very sore in his shoulder joints.. PT-OP-G Mobility & Gait Start: 12/27/18 17:26 Freq: Status: Active Protocol: Document 12/27/18 11:20 RCC (Rec: 12/27/18 17:57 [facility] [email or web address]) OP Mobility Evaluation Bed Mobility Rolling mod indep with increased time and pain Supine to and from Sit mod indep with increased time and pain OP Gait Assessment Gait Deviations General Gait Pattern Antalgic Decreased Stride Length Flexed Trunk Wide Based Gait Factors Limiting Gait Function Factors Limiting Gait Function Decreased Activity Tolerance Decreased Sensation Decreased Strength Limited Range of Motion Pain PT-OP-H Neuro Start: 12/27/18 17:26 Freq: Status: Active Protocol: Document 12/27/18 11:20 RCC (Rec: 12/27/18 17:57 [facility] [email or web address]) Sensation Evaluation Gross Sensation Gross Sensation Left LE Impaired Right LE Impaired Comments Summary Comments pt reports B foot numbness PT-OP-K Range of Motion Start: 12/27/18 17:26 Freq: Status: Active Protocol: Document 12/27/18 11:20 RCC (Rec: 12/27/18 17:57 [facility] [email or web address]) Knee Goniometric Range of Motion Knee Left Flexion Active (degrees) 126 Extension Active (degrees) 0 Right Knee ROM WFL No Flexion Active (degrees) 119 Extension Active (degrees) 4 Extension Passive (degrees) 0 PT-OP-M Strength Start: 12/27/18 17:26 Freq: Status: Active Protocol: Document 12/27/18 11:20 RCC (Rec: 12/27/18 17:57 [facility] [email or web address]) Trunk Strength Trunk Manual Muscle Testing Core Stabilization Hooklying- holding scapula off of table (partial sit-up) 5 seconds Supine- bilateral leg lift/ hold 3 seconds Hip Strength Hip Manual Muscle Testing Right Flexion (L2) 4- Good- Extension (S1) 3- Fair- Abduction 3 Fair External Rotation 3+ Fair+ Internal Rotation 3+ Fair+ Left Flexion (L2) 4- Good- Extension (S1) 3- Fair- Abduction 3 Fair External Rotation 3+ Fair+ Internal Rotation 4- Good- Knee Strength Knee Manual Muscle Testing Right Flexion (S2) 4- Good- Extension (L3) 3+ Fair+ Left Flexion (S2) 4- Good- Extension (L3) 4 Good Ankle/Foot Strength Ankle and Foot Manual Muscle Testing Left Dorsiflexion (L4) 3 Fair Right Dorsiflexion (L4) 5 Normal Toe Strength Toe Manual Muscle Testing Right Great Toe Extension 5 Normal Left Great Toe Extension 3+ Fair+ PT-OP-S Aquatic Treatment Start: 12/27/18 17:26 Freq: Status: Active Protocol: Document 02/05/19 12:15 LJ (Rec: 02/05/19 14:27 LJ [email or web address]) Aquatics Treatment Pool Entry/Exit Pool Entry/Exit Method Stairs Assistance Independent Water Walking backward step up on box Water Level Waist Level Comments pt heaving self up ooccasionally lunge walking Water Level Chest Level Comments 2 laps march, straight leg september Water Level Chest Level Walking Equipment Resistance Fins Level of Assistance Verbal Cues Comments 2 laps fwd,bck,side Water Level Chest Level Walking Equipment colored BB Level of Assistance Verbal Cues Comments 2 laps each; holding BB at side Lower Extremity Exercises figure 8's Body Position Standing Comments with hip/knee flexed at 90/90, leading with knee HS curls Details standing at wall w/min hand support Body Position Standing Water Level Chest Level Equipment resistance fins large Reps/Duration 2x10 bilat Comments cues for no hip flexion and erect posture HS curls and kickbacks Details standing at wall w/min hand support Body Position Standing Water Level Chest Level Equipment resistance fins large Reps/Duration 2x10 bilat Comments cues for no hip flexion and erect posture CC,CCW Details standing at wall w/min hand support Body Position Standing Water Level Chest Level Equipment resistance fins blue Reps/Duration 2x 10 bilat Comments cues for core stab squats Water Level Waist Level Equipment #15 ball Reps/Duration 20x Comments turning and lifting ball onto deck hip flex/ext, ab/ad Details standing at wall w/min hand support Body Position Standing Water Level Chest Level Equipment Resistance Fins Reps/Duration 2x10 bilat Comments increased effort Lower Extremity Stretches hamstring, ITB, add Details at wall Body Position Standing Water Level Chest Level Equipment large noodles (2) Reps/Duration [id number] hold Upper Extremity Exercises stretch cords-rows, pull downs Body Position Standing Water Level Chest Level Reps/Duration 2x10 Comments cues for scap retraction lat pull down, IR/ER Body Position Standing Water Level Chest Level Reps/Duration 10 bilat Comments cues for core stab Spinal Exercises spinal rotations w/2 stretch cords Body Position Standing Water Level Chest Level Reps/Duration 2 x 10 Comments both directions Ranger Activities Ranger Activities Bicycle Cross Country Hip Abduction/Adduction Equipment belt Duration 12 Comments 6 rounds 30/30 lower intensiy d/t pt energy level PT-OP-T Assessment and Plan Start: 12/27/18 17:26 Freq: Status: Active Protocol: Document 02/05/19 12:15 JAMIN (Rec: 02/05/19 14:27 JAMIN [email or web address]) Physical Therapy Assessment Goals Recreational Activities 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 with bee- keeping (unable to lift hive ~ 50 lbs) Plumbing Technician Goal (LTG) Pt will be demonstrate the ability to lift 50 lbs with good body mechanics and no verbal cuing to return to indep bee-keeping. LTG Duration 12 weeks Perceived Disability Impairment Modified Oswestry Score 40% Plumbing Technician Goal (LTG) Pt will grade overall perceived disability on the Modified Oswestry Questionnaire to at least 28% or less. LTG Duration 12 weeks knowledge deficit Impairment pt not indep. with aquatic home program Plumbing Technician Goal (LTG) Pt will report tolerance to indep. aquatic home exercise program for 45 min, 2x/wk (4 total if including PT treatments). LTG Duration 12 weeks weakness Impairment Core and LE weakness Short Term Goal (STG) Pt will have MMT of LE strength graded 4/5 or greater . STG Duration 6 weeks Plumbing Technician Goal (LTG) Pt will have MMT of LE strength graded 4+/5 or greater, and be able to hold scapula off of table in partial sit-up position, as well as hold BLE lift for 10 seconds with each instance. LTG Duration 12 weeks pain Impairment 6/10 pain in low back, LLE Short Term Goal (STG) Pt will report pain 4/10 or less with daily functional activities. STG Duration 6 weeks Correction Goal (LTG) Pt will report pain 2/10 or less with daily functional activities. LTG Duration 12 weeks Assessment Summary Assessment Pt fatigued today and performed exercises w/o pain at a lower intensity. Physical Therapy Plan Frequency and Duration Frequency of Treatment 2x/Week Duration of Treatment 12 weeks Plan of Care Start Date 12/27/18 Plan of Care End Date 03/21/19 Therapeutic Interventions Therapeutic Interventions Aquatic Therapy Balance Training Gait Training Home Exercise Program Manual Therapy Neuromuscular Re-education Orthotic/Prosthetic Management Patient/Caregiver Education Self-Care/Home Management Sensory Integration Soft Tissue Mobilization Taping Therapeutic Activities Therapeutic Exercises Next Visit Focus/Plan Next Note Type Treatment Note Next Visit Plan Progress aquatic exercise intensity and resistance if pt is not experiencing increased fatigue resulting in poor performance.
--- NOTE | 2019-02-07 14:50 | PT.OTN ---
Current Diagnoses Other intervertebral disc displacement, lumbar region (02/05/19) Physical Therapy Treatment Note PT-OP-A Visit Information Start: 12/27/18 17:26 Freq: Status: Active Protocol: Document 02/07/19 11:30 LJ (Rec: 02/07/19 14:49 LJ [email or web address]) Out-Patient Physical Therapy Visit Information Visit Information Visit Type Aquatic Treatment Note Visit Start Time 11:30 Visit Stop Time 12:15 Total Visit Minutes 45 Visit Number 14 Number of EMBEDDED FIRMWARE DEVELOPER Visits 2 PT-OP-B Current Condition Start: 12/27/18 17:26 Freq: Status: Active Protocol: Document 12/27/18 11:20 RCC (Rec: 12/27/18 17:57 RCC [email or web address]) Current Condition History of Current Condition Onset Date 2 yrs Current Complaints low back pain, R knee pain, difficulty with lifting History of Current Condition Pt is a 68 y/o male presenting back to skilled physical therapy s/p surgical removal of portion of colon d/t colon cancer. Pt reports that he feels like he has no core musculature, and his low back is still painful with radiating pain down lateral L leg to foot. Pt admits that his radiating pain is somewhat less due to being laid-up over the past month recovering from surgery. Pt was enrolled in aquatic PT earlier this year and is motivated to get back into it. Pt reports bilateral foot numbness, and R leg weakness d/t having quadriceps reattachment in 2017 on the R. 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 do bee-keeping which includes lifting 50 lbs Current Functional Impairments (Reported) Functional Limitations- Mobility/Gait increases pain Functional Limitations- Recreation/ uanble to do bee-keeping due Hobbies to inability to lift Personal Factors Other Personal Factors That May Effect obesity, h/o angina/cardiac Therapy/Recovery issues, HTN, recent colon surgery/CA PT-OP-C Subjective Start: 12/27/18 17:26 Freq: Status: Active Protocol: Document 02/07/19 11:30 LJ (Rec: 02/07/19 14:49 LJ [email or web address]) OP-PT Subjective Patient Comments Patient Comments Pt feeling better today. No pain and his energy level is good. PT-OP-G Mobility & Gait Start: 12/27/18 17:26 Freq: Status: Active Protocol: Document 12/27/18 11:20 RCC (Rec: 12/27/18 17:57 RCC [email or web address]) OP Mobility Evaluation Bed Mobility Rolling mod indep with increased time and pain Supine to and from Sit mod indep with increased time and pain OP Gait Assessment Gait Deviations General Gait Pattern Antalgic Decreased Stride Length Flexed Trunk Wide Based Gait Factors Limiting Gait Function Factors Limiting Gait Function Decreased Activity Tolerance Decreased Sensation Decreased Strength Limited Range of Motion Pain PT-OP-H Neuro Start: 12/27/18 17:26 Freq: Status: Active Protocol: Document 12/27/18 11:20 RCC (Rec: 12/27/18 17:57 RCC [email or web address]) Sensation Evaluation Gross Sensation Gross Sensation Left LE Impaired Right LE Impaired Comments Summary Comments pt reports B foot numbness PT-OP-K Range of Motion Start: 12/27/18 17:26 Freq: Status: Active Protocol: Document 12/27/18 11:20 RCC (Rec: 12/27/18 17:57 RCC [email or web address]) Knee Goniometric Range of Motion Knee Left Flexion Active (degrees) 126 Extension Active (degrees) 0 Right Knee ROM WFL No Flexion Active (degrees) 119 Extension Active (degrees) 4 Extension Passive (degrees) 0 PT-OP-M Strength Start: 12/27/18 17:26 Freq: Status: Active Protocol: Document 12/27/18 11:20 RCC (Rec: 12/27/18 17:57 RCC [email or web address]) Trunk Strength Trunk Manual Muscle Testing Core Stabilization Hooklying- holding scapula off of table (partial sit-up) 5 seconds Supine- bilateral leg lift/ hold 3 seconds Hip Strength Hip Manual Muscle Testing Right Flexion (L2) 4- Good- Extension (S1) 3- Fair- Abduction 3 Fair External Rotation 3+ Fair+ Internal Rotation 3+ Fair+ Left Flexion (L2) 4- Good- Extension (S1) 3- Fair- Abduction 3 Fair External Rotation 3+ Fair+ Internal Rotation 4- Good- Knee Strength Knee Manual Muscle Testing Right Flexion (S2) 4- Good- Extension (L3) 3+ Fair+ Left Flexion (S2) 4- Good- Extension (L3) 4 Good Ankle/Foot Strength Ankle and Foot Manual Muscle Testing Left Dorsiflexion (L4) 3 Fair Right Dorsiflexion (L4) 5 Normal Toe Strength Toe Manual Muscle Testing Right Great Toe Extension 5 Normal Left Great Toe Extension 3+ Fair+ PT-OP-S Aquatic Treatment Start: 12/27/18 17:26 Freq: Status: Active Protocol: Document 02/07/19 11:30 LJ (Rec: 02/07/19 14:49 LJ [email or web address]) Aquatics Treatment Pool Entry/Exit Pool Entry/Exit Method Stairs Assistance Independent Water Walking backward step up on box Water Level Waist Level Comments better control this session lunge walking Water Level Chest Level Comments 2 laps march, straight leg september Water Level Chest Level Walking Equipment Ankle Floats Level of Assistance Verbal Cues Comments 2 laps fwd,bck,side Water Level Chest Level Walking Equipment Ankle Floats Level of Assistance Verbal Cues Lower Extremity Exercises HS curls Details standing at wall w/min hand support Body Position Standing Water Level Chest Level Equipment Ankle Floats Reps/Duration 2x10 bilat Comments cues for no hip flexion and erect posture HS curls and kickbacks Details standing at wall w/min hand support Body Position Standing Water Level Chest Level Equipment Ankle Floats Reps/Duration 2x10 bilat Comments cues for no hip flexion and erect posture CC,CCW Details standing at wall w/min hand support Body Position Standing Water Level Chest Level Equipment Ankle Floats Reps/Duration 2x 10 bilat Comments cues for core stab hip flex/ext, ab/ad Details standing at wall w/min hand support Body Position Standing Water Level Chest Level Equipment Ankle Floats Reps/Duration 2x10 bilat Comments increased effort Lower Extremity Stretches hamstring, ITB, add Details at wall Body Position Standing Water Level Chest Level Equipment large noodles (2) Reps/Duration [id number] hold Upper Extremity Exercises stretch cords-rows, pull downs Body Position Standing Water Level Chest Level Reps/Duration 2x10 Comments cues for scap retraction bicep, tricep Body Position Standing Water Level Chest Level Equipment UE paddles Comments cues for core stab lat pull down, IR/ER Body Position Standing Water Level Chest Level Reps/Duration 10 bilat Comments cues for core stab Spinal Exercises spinal rotations w/2 stretch cords Body Position Standing Water Level Chest Level Reps/Duration 2 x 10 Comments both directions Model Activities Model Activities Bicycle Cross Country Hip Abduction/Adduction Other Activities pendulum modified supine crunches-lg BBs tap under knees Equipment belt Duration 8 Other hamstring nerve glides Body Position Standing Water Level Chest Level Comments also nerve flossing PT-OP-T Assessment and Plan Start: 12/27/18 17:26 Freq: Status: Active Protocol: Document 02/07/19 11:30 LJ (Rec: 02/07/19 14:49 LJ [email or web address]) Physical Therapy Assessment Goals Recreational Activities 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 with bee- keeping (unable to lift hive ~ 50 lbs) [employer] Director Goal (LTG) Pt will be demonstrate the ability to lift 50 lbs with good body mechanics and no verbal cuing to return to indep bee-keeping. LTG Duration 12 weeks Perceived Disability Impairment Modified Oswestry Score 40% [employer] Director Goal (LTG) Pt will grade overall perceived disability on the Modified Oswestry Questionnaire to at least 28% or less. LTG Duration 12 weeks knowledge deficit Impairment pt not indep. with aquatic home program [employer] Director Goal (LTG) Pt will report tolerance to indep. aquatic home exercise program for 45 min, 2x/wk (4 total if including PT treatments). LTG Duration 12 weeks weakness Impairment Core and LE weakness Short Term Goal (STG) Pt will have MMT of LE strength graded 4/5 or greater . STG Duration 6 weeks [employer] Director Goal (LTG) Pt will have MMT of LE strength graded 4+/5 or greater, and be able to hold scapula off of table in partial sit-up position, as well as hold BLE lift for 10 seconds with each instance. LTG Duration 12 weeks pain Impairment 6/10 pain in low back, LLE Short Term Goal (STG) Pt will report pain 4/10 or less with daily functional activities. STG Duration 6 weeks [employer] Director Goal (LTG) Pt will report pain 2/10 or less with daily functional activities. LTG Duration 12 weeks Assessment Summary Assessment Pt able to increase intensity of exercises d/t feeling more energetic today Physical Therapy Plan Frequency and Duration Frequency of Treatment 2x/Week Duration of Treatment 12 weeks Plan of Care Start Date 12/27/18 Plan of Care End Date 03/21/19 Therapeutic Interventions Therapeutic Interventions Aquatic Therapy Balance Training Gait Training Home Exercise Program Manual Therapy Neuromuscular Re-education Orthotic/Prosthetic Management Patient/Caregiver Education Self-Care/Home Management Sensory Integration Soft Tissue Mobilization Taping Therapeutic Activities Therapeutic Exercises Next Visit Focus/Plan Next Note Type Treatment Note Next Visit Plan Progress aquatic exercise intensity and resistance if pt is not experiencing increased fatigue resulting in poor performance.
--- NOTE | 2019-02-12 12:15 | PT.OTN ---
Current Diagnoses Other intervertebral disc displacement, lumbar region (02/12/19) Physical Therapy Treatment Note PT-OP-A Visit Information Start: 12/27/18 17:26 Freq: Status: Active Protocol: Document 02/12/19 12:15 SAK (Rec: 02/14/19 07:43 SAK [id number]) Out-Patient Physical Therapy Visit Information Visit Information Visit Type Aquatic Treatment Note Visit Start Time 11:30 Visit Stop Time 12:15 Total Visit Minutes 45 Visit Number 15 Number of TRANSPORTATION INSPECTOR Visits 0 PT-OP-B Current Condition Start: 12/27/18 17:26 Freq: Status: Active Protocol: Document 12/27/18 11:20 RCC (Rec: 12/27/18 17:57 RCC [id number]) Current Condition History of Current Condition Onset Date 2 yrs Current Complaints low back pain, R knee pain, difficulty with lifting History of Current Condition Pt is a 68 y/o male presenting back to skilled physical therapy s/p surgical removal of portion of colon d/t colon cancer. Pt reports that he feels like he has no core musculature, and his low back is still painful with radiating pain down lateral L leg to foot. Pt admits that his radiating pain is somewhat less due to being laid-up over the past month recovering from surgery. Pt was enrolled in aquatic PT earlier this year and is motivated to get back into it. Pt reports bilateral foot numbness, and R leg weakness d/t having quadriceps reattachment in 2017 on the R. 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 do bee-keeping which includes lifting 50 lbs Current Functional Impairments (Reported) Functional Limitations- Mobility/Gait increases pain Functional Limitations- Recreation/ uanble to do bee-keeping due Hobbies to inability to lift Personal Factors Other Personal Factors That May Effect obesity, h/o angina/cardiac Therapy/Recovery issues, HTN, recent colon surgery/CA PT-OP-C Subjective Start: 12/27/18 17:26 Freq: Status: Active Protocol: Document 02/12/19 12:15 SAK (Rec: 02/14/19 07:43 SAK [id number]) OP-PT Subjective Patient Comments Patient Comments Fatigued after farm activities over weekend. PT-OP-G Mobility & Gait Start: 12/27/18 17:26 Freq: Status: Active Protocol: Document 12/27/18 11:20 RCC (Rec: 12/27/18 17:57 RCC [email or web address]) OP Mobility Evaluation Bed Mobility Rolling mod indep with increased time and pain Supine to and from Sit mod indep with increased time and pain OP Gait Assessment Gait Deviations General Gait Pattern Antalgic Decreased Stride Length Flexed Trunk Wide Based Gait Factors Limiting Gait Function Factors Limiting Gait Function Decreased Activity Tolerance Decreased Sensation Decreased Strength Limited Range of Motion Pain PT-OP-H Neuro Start: 12/27/18 17:26 Freq: Status: Active Protocol: Document 12/27/18 11:20 RCC (Rec: 12/27/18 17:57 RCC [email or web address]) Sensation Evaluation Gross Sensation Gross Sensation Left LE Impaired Right LE Impaired Comments Summary Comments pt reports B foot numbness PT-OP-K Range of Motion Start: 12/27/18 17:26 Freq: Status: Active Protocol: Document 12/27/18 11:20 RCC (Rec: 12/27/18 17:57 RCC [email or web address]) Knee Goniometric Range of Motion Knee Left Flexion Active (degrees) 126 Extension Active (degrees) 0 Right Knee ROM WFL No Flexion Active (degrees) 119 Extension Active (degrees) 4 Extension Passive (degrees) 0 PT-OP-M Strength Start: 12/27/18 17:26 Freq: Status: Active Protocol: Document 12/27/18 11:20 RCC (Rec: 12/27/18 17:57 RCC [email or web address]) Trunk Strength Trunk Manual Muscle Testing Core Stabilization Hooklying- holding scapula off of table (partial sit-up) 5 seconds Supine- bilateral leg lift/ hold 3 seconds Hip Strength Hip Manual Muscle Testing Right Flexion (L2) 4- Good- Extension (S1) 3- Fair- Abduction 3 Fair External Rotation 3+ Fair+ Internal Rotation 3+ Fair+ Left Flexion (L2) 4- Good- Extension (S1) 3- Fair- Abduction 3 Fair External Rotation 3+ Fair+ Internal Rotation 4- Good- Knee Strength Knee Manual Muscle Testing Right Flexion (S2) 4- Good- Extension (L3) 3+ Fair+ Left Flexion (S2) 4- Good- Extension (L3) 4 Good Ankle/Foot Strength Ankle and Foot Manual Muscle Testing Left Dorsiflexion (L4) 3 Fair Right Dorsiflexion (L4) 5 Normal Toe Strength Toe Manual Muscle Testing Right Great Toe Extension 5 Normal Left Great Toe Extension 3+ Fair+ PT-OP-S Aquatic Treatment Start: 12/27/18 17:26 Freq: Status: Active Protocol: Document 02/12/19 12:15 SAK (Rec: 02/14/19 07:43 SAK [id number]) Aquatics Treatment Pool Entry/Exit Pool Entry/Exit Method Stairs Assistance Independent Water Walking backward step up on box Water Level Waist Level Comments better control this session lunge walking Water Level Chest Level Comments 2 laps march, straight leg march Water Level Chest Level Walking Equipment resistance fins large Level of Assistance Verbal Cues Comments 2 laps fwd,bck,side Water Level Chest Level Walking Equipment large resistance fins Level of Assistance Verbal Cues Lower Extremity Exercises HS curls Details standing at wall w/min hand support Body Position Standing Water Level Chest Level Equipment large resistance fins Reps/Duration 2x10 bilat Comments cues for no hip flexion and erect posture HS curls and kickbacks Details standing at wall w/min hand support Body Position Standing Water Level Chest Level Equipment large resistance fins Reps/Duration 2x10 bilat Comments cues for no hip flexion and erect posture CC,CCW Details standing at wall w/min hand support Body Position Standing Water Level Chest Level Equipment large resistance fins Reps/Duration 2x 10 bilat Comments cues for core stab hip flex/ext, ab/ad Details standing at wall w/min hand support Body Position Standing Water Level Chest Level Equipment large resistance fins Reps/Duration 2x10 bilat Comments increased effort Lower Extremity Stretches lateral trunk and ITb stretch Body Position Standing Water Level Chest Level Reps/Duration 2x Comments holding wall piriformis, hip ER Comments 2x 30 sec bilat hamstring, ITB, add Details at wall Body Position Standing Water Level Chest Level Equipment large noodles (2) Reps/Duration [id number] hold Upper Extremity Exercises stretch cords-rows, pull downs Body Position Standing Water Level Chest Level Reps/Duration 2x10 Comments cues for scap retraction bicep, tricep Body Position Standing Water Level Chest Level Equipment UE paddles Comments cues for core stab lat pull down, IR/ER Body Position Standing Water Level Chest Level Reps/Duration 12x bilat Comments cues for core stab [place] Activities [place] Activities Bicycle [place] Hip Abduction/Adduction Other Activities pendulum modified supine crunches-lg BBs tap under knees Equipment belt Duration 10 Other hamstring nerve glides Body Position Standing Water Level Chest Level Comments also nerve flossing PT-OP-T Assessment and Plan Start: 12/27/18 17:26 Freq: Status: Active Protocol: Document 02/12/19 12:15 SAK (Rec: 02/14/19 07:[address] [facility] [id number]) Physical Therapy Assessment Goals Recreational Activities 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 with bee- keeping (unable to lift hive ~ 50 lbs) School Nurse Goal (LTG) Pt will be demonstrate the ability to lift 50 lbs with good body mechanics and no verbal cuing to return to indep bee-keeping. LTG Duration 12 weeks Perceived Disability Impairment Modified Oswestry Score 40% [facility] Goal (LTG) Pt will grade overall perceived disability on the Modified Oswestry Questionnaire to at least 28% or less. LTG Duration 12 weeks knowledge deficit Impairment pt not indep. with aquatic home program [facility] Goal (LTG) Pt will report tolerance to indep. aquatic home exercise program for 45 min, 2x/wk (4 total if including PT treatments). LTG Duration 12 weeks weakness Impairment Core and LE weakness Short Term Goal (STG) Pt will have MMT of LE strength graded 4/5 or greater . STG Duration 6 weeks [facility] Goal (LTG) Pt will have MMT of LE strength graded 4+/5 or greater, and be able to hold scapula off of table in partial sit-up position, as well as hold BLE lift for 10 seconds with each instance. LTG Duration 12 weeks pain Impairment 6/10 pain in low back, LLE Short Term Goal (STG) Pt will report pain 4/10 or less with daily functional activities. STG Duration 6 weeks [facility] Goal (LTG) Pt will report pain 2/10 or less with daily functional activities. LTG Duration 12 weeks Assessment Summary Assessment Patient very fatigued today with decreased intensity with exercises. Denied increase in symptoms. Physical Therapy Plan Frequency and Duration Frequency of Treatment 2x/Week Duration of Treatment 12 weeks Plan of Care Start Date 12/27/18 Plan of Care End Date 03/21/19 Therapeutic Interventions Therapeutic Interventions Aquatic Therapy Balance Training Gait Training Home Exercise Program Manual Therapy Neuromuscular Re-education Orthotic/Prosthetic Management Patient/Caregiver Education Self-Care/Home Management Sensory Integration Soft Tissue Mobilization Taping Therapeutic Activities Therapeutic Exercises Next Visit Focus/Plan Next Note Type Treatment Note Next Visit Plan Continue to progress with aquatic exercises with emphasis on neutral postural alignment and core stabilization with all activities.
--- NOTE | 2019-02-15 17:06 | PT.OTN ---
Current Diagnoses Other intervertebral disc displacement, lumbar region (02/14/19) Physical Therapy Treatment Note PT-OP-A Visit Information Start: 12/27/18 17:26 Freq: Status: Active Protocol: Document 02/14/19 12:15 SAK (Rec: 02/15/19 17:06 SAK [id number]) Out-Patient Physical Therapy Visit Information Visit Information Visit Type Aquatic Treatment Note Visit Start Time 12:15 Visit Stop Time 13:00 Total Visit Minutes 45 Visit Number 16 Number of SPA ASSOCIATE Visits 0 PT-OP-B Current Condition Start: 12/27/18 17:26 Freq: Status: Active Protocol: Document 12/27/18 11:20 RCC (Rec: 12/27/18 17:57 RCC [email or web address]) Current Condition History of Current Condition Onset Date 2 yrs Current Complaints low back pain, R knee pain, difficulty with lifting History of Current Condition Pt is a 68 y/o male presenting back to skilled physical therapy s/p surgical removal of portion of colon d/t colon cancer. Pt reports that he feels like he has no core musculature, and his low back is still painful with radiating pain down lateral L leg to foot. Pt admits that his radiating pain is somewhat less due to being laid-up over the past month recovering from surgery. Pt was enrolled in aquatic PT earlier this year and is motivated to get back into it. Pt reports bilateral foot numbness, and R leg weakness d/t having quadriceps reattachment in 2017 on the R. 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 do bee-keeping which includes lifting 50 lbs Current Functional Impairments (Reported) Functional Limitations- Mobility/Gait increases pain Functional Limitations- Recreation/ uanble to do bee-keeping due Hobbies to inability to lift Personal Factors Other Personal Factors That May Effect obesity, h/o angina/cardiac Therapy/Recovery issues, HTN, recent colon surgery/CA PT-OP-C Subjective Start: 12/27/18 17:26 Freq: Status: Active Protocol: Document 02/14/19 12:15 SAK (Rec: 02/15/19 17:06 SAK [id number]) OP-PT Subjective Patient Comments Patient Comments left hip hurting more today: I just need to loosen it up in the pool hopefully. PT-OP-G Mobility & Gait Start: 12/27/18 17:26 Freq: Status: Active Protocol: Document 12/27/18 11:20 RCC (Rec: 12/27/18 17:57 RCC [email or web address]) OP Mobility Evaluation Bed Mobility Rolling mod indep with increased time and pain Supine to and from Sit mod indep with increased time and pain OP Gait Assessment Gait Deviations General Gait Pattern Antalgic Decreased Stride Length Flexed Trunk Wide Based Gait Factors Limiting Gait Function Factors Limiting Gait Function Decreased Activity Tolerance Decreased Sensation Decreased Strength Limited Range of Motion Pain PT-OP-H Neuro Start: 12/27/18 17:26 Freq: Status: Active Protocol: Document 12/27/18 11:20 RCC (Rec: 12/27/18 17:57 RCC [email or web address]) Sensation Evaluation Gross Sensation Gross Sensation Left LE Impaired Right LE Impaired Comments Summary Comments pt reports B foot numbness PT-OP-K Range of Motion Start: 12/27/18 17:26 Freq: Status: Active Protocol: Document 12/27/18 11:20 RCC (Rec: 12/27/18 17:57 RCC [email or web address]) Knee Goniometric Range of Motion Knee Left Flexion Active (degrees) 126 Extension Active (degrees) 0 Right Knee ROM WFL No Flexion Active (degrees) 119 Extension Active (degrees) 4 Extension Passive (degrees) 0 PT-OP-M Strength Start: 12/27/18 17:26 Freq: Status: Active Protocol: Document 12/27/18 11:20 RCC (Rec: 12/27/18 17:57 RCC [email or web address]) Trunk Strength Trunk Manual Muscle Testing Core Stabilization Hooklying- holding scapula off of table (partial sit-up) 5 seconds Supine- bilateral leg lift/ hold 3 seconds Hip Strength Hip Manual Muscle Testing Right Flexion (L2) 4- Good- Extension (S1) 3- Fair- Abduction 3 Fair External Rotation 3+ Fair+ Internal Rotation 3+ Fair+ Left Flexion (L2) 4- Good- Extension (S1) 3- Fair- Abduction 3 Fair External Rotation 3+ Fair+ Internal Rotation 4- Good- Knee Strength Knee Manual Muscle Testing Right Flexion (S2) 4- Good- Extension (L3) 3+ Fair+ Left Flexion (S2) 4- Good- Extension (L3) 4 Good Ankle/Foot Strength Ankle and Foot Manual Muscle Testing Left Dorsiflexion (L4) 3 Fair Right Dorsiflexion (L4) 5 Normal Toe Strength Toe Manual Muscle Testing Right Great Toe Extension 5 Normal Left Great Toe Extension 3+ Fair+ PT-OP-S Aquatic Treatment Start: 12/27/18 17:26 Freq: Status: Active Protocol: Document 02/14/19 12:15 [facility] (Rec: 02/15/19 17:06 [facility] [id number]) Aquatics Treatment Pool Entry/Exit Pool Entry/Exit Method Stairs Assistance Independent Water Walking backward step up on box Water Level Waist Level Comments better control this session lunge walking Water Level Chest Level Comments 2 laps march, straight leg march Water Level Chest Level Walking Equipment resistance fins large Level of Assistance Verbal Cues Comments 2 laps fwd,bck,side Water Level Chest Level Walking Equipment large resistance fins Level of Assistance Verbal Cues Lower Extremity Exercises figure 8's Body Position Standing Comments with hip/knee flexed at 90/90, leading with knee HS curls Details standing at wall w/min hand support Body Position Standing Water Level Chest Level Equipment large resistance fins Reps/Duration 2x10 bilat Comments cues for no hip flexion and erect posture HS curls and kickbacks Details standing at wall w/min hand support Body Position Standing Water Level Chest Level Equipment large resistance fins Reps/Duration 2x10 bilat Comments cues for no hip flexion and erect posture CC,CCW Details standing at wall w/min hand support Body Position Standing Water Level Chest Level Equipment large resistance fins Reps/Duration 2x 10 bilat Comments cues for core stab squats Water Level Waist Level Equipment #15 ball Reps/Duration 20x Comments turning and lifting ball onto deck hip flex/ext, ab/ad Details standing at wall w/min hand support Body Position Standing Water Level Chest Level Equipment large resistance fins Reps/Duration 2x10 bilat Lower Extremity Stretches quads Details and hip flex Equipment large [place] floats Reps/Duration 2x lateral trunk and ITb stretch Body Position Standing Water Level Chest Level Reps/Duration 2x Comments holding wall piriformis, hip ER Comments 2x 30 sec bilat hamstring, ITB, add Details at wall Body Position Standing Water Level Chest Level Equipment large noodles (2) Reps/Duration [id number] hold Upper Extremity Exercises stretch cords-rows, pull downs Body Position Standing Water Level Chest Level Reps/Duration 2x10 Comments cues for scap retraction bicep, tricep Body Position Standing Water Level Chest Level Equipment UE paddles Comments cues for core stab lat pull down, IR/ER Body Position Standing Water Level Chest Level Reps/Duration 12x bilat Comments cues for core stab Spinal Exercises supine to stand Equipment Hydro[place] floats deep water hang Body Position Standing Water Level [place] Equipment blue float Reps/Duration 7# renato x 10 min [place] Activities [place] Activities Bicycle [place] Hip Abduction/Adduction Other Activities pendulum modified supine crunches-lg BBs tap under knees Equipment belt Duration 10 Other hamstring nerve glides Body Position Standing Water Level Chest Level Comments also nerve flossing PT-OP-T Assessment and Plan Start: 12/27/18 17:26 Freq: Status: Active Protocol: Document 02/14/19 12:15 SAK (Rec: 02/15/19 17:06 SAK [id number]) Physical Therapy Assessment Goals Recreational Activities 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 with bee- keeping (unable to lift hive ~ 50 lbs) Field Map Technician Goal (LTG) Pt will be demonstrate the ability to lift 50 lbs with good body mechanics and no verbal cuing to return to indep bee-keeping. LTG Duration 12 weeks Perceived Disability Impairment Modified Oswestry Score 40% Field Map Technician Goal (LTG) Pt will grade overall perceived disability on the Modified Oswestry Questionnaire to at least 28% or less. LTG Duration 12 weeks knowledge deficit Impairment pt not indep. with aquatic home program Field Map Technician Goal (LTG) Pt will report tolerance to indep. aquatic home exercise program for 45 min, 2x/wk (4 total if including PT treatments). LTG Duration 12 weeks weakness Impairment Core and LE weakness Short Term Goal (STG) Pt will have MMT of LE strength graded 4/5 or greater . STG Duration 6 weeks Skilled Nursing Goal (LTG) Pt will have MMT of LE strength graded 4+/5 or greater, and be able to hold scapula off of table in partial sit-up position, as well as hold BLE lift for 10 seconds with each instance. LTG Duration 12 weeks pain Impairment 6/10 pain in low back, LLE Short Term Goal (STG) Pt will report pain 4/10 or less with daily functional activities. STG Duration 6 weeks Field Map Technician Goal (LTG) Pt will report pain 2/10 or less with daily functional activities. LTG Duration 12 weeks Assessment Summary Assessment Patient had difficulty with supine to stand ex with ankle floats Physical Therapy Plan Frequency and Duration Frequency of Treatment 2x/Week Duration of Treatment 12 weeks Plan of Care Start Date 12/27/18 Plan of Care End Date 03/21/19 Therapeutic Interventions Therapeutic Interventions Aquatic Therapy Balance Training Gait Training Home Exercise Program Manual Therapy Neuromuscular Re-education Orthotic/Prosthetic Management Patient/Caregiver Education Self-Care/Home Management Sensory Integration Soft Tissue Mobilization Taping Therapeutic Activities Therapeutic Exercises Next Visit Focus/Plan Next Note Type Treatment Note Next Visit Plan Continue to progress with aquatic exercises with emphasis on neutral postural alignment and core stabilization with all activities.
--- NOTE | 2019-02-19 15:16 | PT.OTN ---
Current Diagnoses Other intervertebral disc displacement, lumbar region (02/14/19) Physical Therapy Treatment Note PT-OP-A Visit Information Start: 12/27/18 17:26 Freq: Status: Active Protocol: Document 02/19/19 11:30 LJ (Rec: 02/19/19 15:16 LJ [email or web address]) Out-Patient Physical Therapy Visit Information Visit Information Visit Type Aquatic Treatment Note Visit Start Time 11:15 Visit Stop Time 12:15 Total Visit Minutes 45 Visit Number 17 Number of MERCHANDISE FLOW TEAM MEMBER Visits 1 PT-OP-B Current Condition Start: 12/27/18 17:26 Freq: Status: Active Protocol: Document 12/27/18 11:20 RCC (Rec: 12/27/18 17:57 RCC [email or web address]) Current Condition History of Current Condition Onset Date 2 yrs Current Complaints low back pain, R knee pain, difficulty with lifting History of Current Condition Pt is a 68 y/o male presenting back to skilled physical therapy s/p surgical removal of portion of colon d/t colon cancer. Pt reports that he feels like he has no core musculature, and his low back is still painful with radiating pain down lateral L leg to foot. Pt admits that his radiating pain is somewhat less due to being laid-up over the past month recovering from surgery. Pt was enrolled in aquatic PT earlier this year and is motivated to get back into it. Pt reports bilateral foot numbness, and R leg weakness d/t having quadriceps reattachment in 2017 on the R. 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 do bee-keeping which includes lifting 50 lbs Current Functional Impairments (Reported) Functional Limitations- Mobility/Gait increases pain Functional Limitations- Recreation/ uanble to do bee-keeping due Hobbies to inability to lift Personal Factors Other Personal Factors That May Effect obesity, h/o angina/cardiac Therapy/Recovery issues, HTN, recent colon surgery/CA PT-OP-C Subjective Start: 12/27/18 17:26 Freq: Status: Active Protocol: Document 02/19/19 11:30 LJ (Rec: 02/19/19 15:16 LJ [email or web address]) OP-PT Subjective Patient Comments Patient Comments Pt complaining of pain and tightness along the side of his LLE. PT-OP-G Mobility & Gait Start: 12/27/18 17:26 Freq: Status: Active Protocol: Document 12/27/18 11:20 RCC (Rec: 12/27/18 17:57 RCC [email or web address]) OP Mobility Evaluation Bed Mobility Rolling mod indep with increased time and pain Supine to and from Sit mod indep with increased time and pain OP Gait Assessment Gait Deviations General Gait Pattern Antalgic Decreased Stride Length Flexed Trunk Wide Based Gait Factors Limiting Gait Function Factors Limiting Gait Function Decreased Activity Tolerance Decreased Sensation Decreased Strength Limited Range of Motion Pain PT-OP-H Neuro Start: 12/27/18 17:26 Freq: Status: Active Protocol: Document 12/27/18 11:20 RCC (Rec: 12/27/18 17:57 RCC [email or web address]) Sensation Evaluation Gross Sensation Gross Sensation Left LE Impaired Right LE Impaired Comments Summary Comments pt reports B foot numbness PT-OP-K Range of Motion Start: 12/27/18 17:26 Freq: Status: Active Protocol: Document 12/27/18 11:20 RCC (Rec: 12/27/18 17:57 RCC [email or web address]) Knee Goniometric Range of Motion Knee Left Flexion Active (degrees) 126 Extension Active (degrees) 0 Right Knee ROM WFL No Flexion Active (degrees) 119 Extension Active (degrees) 4 Extension Passive (degrees) 0 PT-OP-M Strength Start: 12/27/18 17:26 Freq: Status: Active Protocol: Document 12/27/18 11:20 RCC (Rec: 12/27/18 17:57 RCC [email or web address]) Trunk Strength Trunk Manual Muscle Testing Core Stabilization Hooklying- holding scapula off of table (partial sit-up) 5 seconds Supine- bilateral leg lift/ hold 3 seconds Hip Strength Hip Manual Muscle Testing Right Flexion (L2) 4- Good- Extension (S1) 3- Fair- Abduction 3 Fair External Rotation 3+ Fair+ Internal Rotation 3+ Fair+ Left Flexion (L2) 4- Good- Extension (S1) 3- Fair- Abduction 3 Fair External Rotation 3+ Fair+ Internal Rotation 4- Good- Knee Strength Knee Manual Muscle Testing Right Flexion (S2) 4- Good- Extension (L3) 3+ Fair+ Left Flexion (S2) 4- Good- Extension (L3) 4 Good Ankle/Foot Strength Ankle and Foot Manual Muscle Testing Left Dorsiflexion (L4) 3 Fair Right Dorsiflexion (L4) 5 Normal Toe Strength Toe Manual Muscle Testing Right Great Toe Extension 5 Normal Left Great Toe Extension 3+ Fair+ PT-OP-S Aquatic Treatment Start: 12/27/18 17:26 Freq: Status: Active Protocol: Document 02/19/19 11:30 JAMIN (Rec: 02/19/19 15:16 LJ [email or web address]) Aquatics Treatment Pool Entry/Exit Pool Entry/Exit Method Stairs Assistance Independent Water Walking march, straight leg march Water Level Chest Level Walking Equipment Ankle Weight- 5.0# Level of Assistance Verbal Cues Comments 2 laps fwd,bck,side Water Level Chest Level Walking Equipment Ankle Weight- 5.0# Level of Assistance Verbal Cues Lower Extremity Exercises figure 8's Body Position Standing Comments with hip/knee flexed at 90/90, leading with knee HS curls and kickbacks Details standing at wall w/min hand support Body Position Standing Water Level Chest Level Equipment Ankle Weight- 5.0# Reps/Duration 2x10 bilat Comments cues for no hip flexion and erect posture CC,CCW Details standing at wall w/min hand support Body Position Standing Water Level Chest Level Equipment Ankle Weight- 5.0# Reps/Duration 2x 10 bilat Comments cues for core stab hip flex/ext, ab/ad Details standing at wall w/min hand support Body Position Standing Water Level Chest Level Equipment large resistance fins Reps/Duration 2x10 bilat Lower Extremity Stretches quads Details and hip flex Equipment Large Noodle Reps/Duration 2x lateral trunk and ITb stretch Body Position Standing Water Level Chest Level Reps/Duration 4 min intermittently Comments holding wall HC Body Position Standing Water Level Chest Level Comments 2x 30sec bilat piriformis, hip ER Comments 2x 30 sec bilat hamstring, ITB, add Details at wall Body Position Standing Water Level Chest Level Equipment large noodles (2) Reps/Duration [id number] hold Upper Extremity Exercises hor ab/ad, flex/ext Water Level Chest Level Reps/Duration 10 renato, Comments while side stepping Upper Extremity Stretches walking w/paddles Water Level Chest Level Reps/Duration 30 M [place] Activities [place] Activities Bicycle Cross [place] Hip Abduction/Adduction Other Activities pendulum modified supine crunches-lg BBs tap under knees Equipment belt, #5 wts, blue float Duration 12 Manual Techniques Aquatic Massage tennis ball rolling on Left TFL Other hamstring nerve glides Body Position Standing Water Level Chest Level Comments also nerve flossing PT-OP-T Assessment and Plan Start: 12/27/18 17:26 Freq: Status: Active Protocol: Document 02/19/19 11:30 JAMIN (Rec: 02/19/19 15:16 LJ [email or web address]) Physical Therapy Assessment Goals Recreational Activities 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 with bee- keeping (unable to lift hive ~ 50 lbs) Ton Container Filler Goal (LTG) Pt will be demonstrate the ability to lift 50 lbs with good body mechanics and no verbal cuing to return to indep bee-keeping. LTG Duration 12 weeks Perceived Disability Impairment Modified Oswestry Score 40% Ton Container Filler Goal (LTG) Pt will grade overall perceived disability on the Modified Oswestry Questionnaire to at least 28% or less. LTG Duration 12 weeks knowledge deficit Impairment pt not indep. with aquatic home program Ton Container Filler Goal (LTG) Pt will report tolerance to indep. aquatic home exercise program for 45 min, 2x/wk (4 total if including PT treatments). LTG Duration 12 weeks weakness Impairment Core and LE weakness Short Term Goal (STG) Pt will have MMT of LE strength graded 4/5 or greater . STG Duration 6 weeks Ton Container Filler Goal (LTG) Pt will have MMT of LE strength graded 4+/5 or greater, and be able to hold scapula off of table in partial sit-up position, as well as hold BLE lift for 10 seconds with each instance. LTG Duration 12 weeks pain Impairment 6/10 pain in low back, LLE Short Term Goal (STG) Pt will report pain 4/10 or less with daily functional activities. STG Duration 6 weeks Ton Container Filler Goal (LTG) Pt will report pain 2/10 or less with daily functional activities. LTG Duration 12 weeks Assessment Summary Assessment Pt experienced relief after rolling with ball on the wall to release TFL. Stretching and deep water exercises improved hip ROM and decreased pain. Pt left feeling much relief in L hip area and had smoother gait exiting pool. Physical Therapy Plan Frequency and Duration Frequency of Treatment 2x/Week Duration of Treatment 12 weeks Plan of Care Start Date 12/27/18 Plan of Care End Date 03/21/19 Therapeutic Interventions Therapeutic Interventions Aquatic Therapy Balance Training Gait Training Home Exercise Program Manual Therapy Neuromuscular Re-education Orthotic/Prosthetic Management Patient/Caregiver Education Self-Care/Home Management Sensory Integration Soft Tissue Mobilization Taping Therapeutic Activities Therapeutic Exercises Next Visit Focus/Plan Next Note Type Treatment Note Next Visit Plan Continue to progress with aquatic exercises with emphasis on neutral postural alignment and core stabilization with all activities.
--- NOTE | 2019-02-21 15:37 | PT.OTN ---
Current Diagnoses Other intervertebral disc displacement, lumbar region (02/21/19) Physical Therapy Treatment Note PT-OP-A Visit Information Start: 12/27/18 17:26 Freq: Status: Active Protocol: Document 02/21/19 15:30 SAK (Rec: 02/21/19 15:37 SAK [id number]) Out-Patient Physical Therapy Visit Information Visit Information Visit Type Aquatic Treatment Note Visit Start Time 11:40 Visit Stop Time 12:20 Total Visit Minutes 40 Visit Number 17 Number of TEXTILE CLOTHING AND FOOTWEAR MECHANIC Visits 1 PT-OP-B Current Condition Start: 12/27/18 17:26 Freq: Status: Active Protocol: Document 12/27/18 11:20 RCC (Rec: 12/27/18 17:57 RCC [email or web address]) Current Condition History of Current Condition Onset Date 2 yrs Current Complaints low back pain, R knee pain, difficulty with lifting History of Current Condition Pt is a 68 y/o male presenting back to skilled physical therapy s/p surgical removal of portion of colon d/t colon cancer. Pt reports that he feels like he has no core musculature, and his low back is still painful with radiating pain down lateral L leg to foot. Pt admits that his radiating pain is somewhat less due to being laid-up over the past month recovering from surgery. Pt was enrolled in aquatic PT earlier this year and is motivated to get back into it. Pt reports bilateral foot numbness, and R leg weakness d/t having quadriceps reattachment in 2017 on the R. 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 do bee-keeping which includes lifting 50 lbs Current Functional Impairments (Reported) Functional Limitations- Mobility/Gait increases pain Functional Limitations- Recreation/ uanble to do bee-keeping due Hobbies to inability to lift Personal Factors Other Personal Factors That May Effect obesity, h/o angina/cardiac Therapy/Recovery issues, HTN, recent colon surgery/CA PT-OP-C Subjective Start: 12/27/18 17:26 Freq: Status: Active Protocol: Document 02/21/19 15:30 SAK (Rec: 02/21/19 15:37 SAK [id number]) OP-PT Subjective Patient Comments Patient Comments Patient reports increased pain today to 8/10 after walking up a hill and sittting at a concert yesterday. PT-OP-G Mobility & Gait Start: 12/27/18 17:26 Freq: Status: Active Protocol: Document 12/27/18 11:20 RCC (Rec: 12/27/18 17:57 RCC [email or web address]) OP Mobility Evaluation Bed Mobility Rolling mod indep with increased time and pain Supine to and from Sit mod indep with increased time and pain OP Gait Assessment Gait Deviations General Gait Pattern Antalgic Decreased Stride Length Flexed Trunk Wide Based Gait Factors Limiting Gait Function Factors Limiting Gait Function Decreased Activity Tolerance Decreased Sensation Decreased Strength Limited Range of Motion Pain PT-OP-H Neuro Start: 12/27/18 17:26 Freq: Status: Active Protocol: Document 12/27/18 11:20 RCC (Rec: 12/27/18 17:57 RCC [email or web address]) Sensation Evaluation Gross Sensation Gross Sensation Left LE Impaired Right LE Impaired Comments Summary Comments pt reports B foot numbness PT-OP-K Range of Motion Start: 12/27/18 17:26 Freq: Status: Active Protocol: Document 12/27/18 11:20 RCC (Rec: 12/27/18 17:57 RCC [email or web address]) Knee Goniometric Range of Motion Knee Left Flexion Active (degrees) 126 Extension Active (degrees) 0 Right Knee ROM WFL No Flexion Active (degrees) 119 Extension Active (degrees) 4 Extension Passive (degrees) 0 PT-OP-M Strength Start: 12/27/18 17:26 Freq: Status: Active Protocol: Document 12/27/18 11:20 RCC (Rec: 12/27/18 17:57 [facility] [email or web address]) Trunk Strength Trunk Manual Muscle Testing Core Stabilization Hooklying- holding scapula off of table (partial sit-up) 5 seconds Supine- bilateral leg lift/ hold 3 seconds Hip Strength Hip Manual Muscle Testing Right Flexion (L2) 4- Good- Extension (S1) 3- Fair- Abduction 3 Fair External Rotation 3+ Fair+ Internal Rotation 3+ Fair+ Left Flexion (L2) 4- Good- Extension (S1) 3- Fair- Abduction 3 Fair External Rotation 3+ Fair+ Internal Rotation 4- Good- Knee Strength Knee Manual Muscle Testing Right Flexion (S2) 4- Good- Extension (L3) 3+ Fair+ Left Flexion (S2) 4- Good- Extension (L3) 4 Good Ankle/Foot Strength Ankle and Foot Manual Muscle Testing Left Dorsiflexion (L4) 3 Fair Right Dorsiflexion (L4) 5 Normal Toe Strength Toe Manual Muscle Testing Right Great Toe Extension 5 Normal Left Great Toe Extension 3+ Fair+ PT-OP-S Aquatic Treatment Start: 12/27/18 17:26 Freq: Status: Active Protocol: Document 02/21/19 15:30 SAK (Rec: 02/21/19 15:37 [facility] [id number]) Aquatics Treatment Pool Entry/Exit Pool Entry/Exit Method Stairs Assistance Independent Water Walking march, straight leg march Water Level Chest Level Walking Equipment Ankle Weight- 5.0# Level of Assistance Verbal Cues Comments 2 laps fwd,bck,side Water Level Chest Level Walking Equipment Ankle Weight- 5.0# Level of Assistance Verbal Cues Lower Extremity Exercises HS curls and kickbacks Details standing at wall w/min hand support Body Position Standing Water Level Chest Level Equipment Ankle Weight- 5.0# Reps/Duration 2x10 bilat Comments cues for no hip flexion and erect posture CC,CCW Details standing at wall w/min hand support Body Position Standing Water Level Chest Level Equipment Ankle Weight- 5.0# Reps/Duration 2x 10 bilat Comments cues for core stab hip flex/ext, ab/ad Details standing at wall w/min hand support Body Position Standing Water Level Chest Level Equipment large resistance fins Reps/Duration 2x10 bilat Lower Extremity Stretches quads Details and hip flex Equipment hydrofit cuffs Reps/Duration 2x lateral trunk and ITb stretch Body Position Standing Water Level Chest Level Reps/Duration 4 min intermittently Comments holding wall HC Body Position Standing Water Level Chest Level Comments 2x 30sec bilat piriformis, hip ER Comments 2x 30 sec bilat hamstring, ITB, add Details at wall Body Position Standing Water Level Chest Level Equipment hydrofit cuffs and 1 lg noodle Reps/Duration [id number] hold Upper Extremity Exercises stretch cords-rows, pull downs Body Position Standing Water Level Chest Level Reps/Duration 2x10 Comments cues for scap retraction bicep, tricep Body Position Standing Water Level Chest Level Equipment UE paddles Comments cues for core stab lat pull down, IR/ER Body Position Standing Water Level Chest Level Reps/Duration 12x bilat Comments cues for core stab hor ab/ad, flex/ext Water Level Chest Level Reps/Duration 10 renato, Comments while side stepping [place] Activities [place] Activities Bicycle Cross [place] Hip Abduction/Adduction Other Activities pendulum modified supine crunches-lg BBs tap under knees Equipment belt, #5 wts, blue float Duration 12 Manual Techniques Aquatic Massage doing at home Other hamstring nerve glides Body Position Standing Water Level Chest Level Comments also nerve flossing PT-OP-T Assessment and Plan Start: 12/27/18 17:26 Freq: Status: Active Protocol: Document 02/21/19 15:30 [facility] (Rec: 02/21/19 15:37 [facility] [id number]) Physical Therapy Assessment Goals Recreational Activities 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 with bee- keeping (unable to lift hive ~ 50 lbs) Environmental Services Technician Goal (LTG) Pt will be demonstrate the ability to lift 50 lbs with good body mechanics and no verbal cuing to return to indep bee-keeping. LTG Duration 12 weeks Perceived Disability Impairment Modified Oswestry Score 40% Environmental Services Technician Goal (LTG) Pt will grade overall perceived disability on the Modified Oswestry Questionnaire to at least 28% or less. LTG Duration 12 weeks knowledge deficit Impairment pt not indep. with aquatic home program Environmental Services Technician Goal (LTG) Pt will report tolerance to indep. aquatic home exercise program for 45 min, 2x/wk (4 total if including PT treatments). LTG Duration 12 weeks weakness Impairment Core and LE weakness Short Term Goal (STG) Pt will have MMT of LE strength graded 4/5 or greater . STG Duration 6 weeks Environmental Services Technician Goal (LTG) Pt will have MMT of LE strength graded 4+/5 or greater, and be able to hold scapula off of table in partial sit-up position, as well as hold BLE lift for 10 seconds with each instance. LTG Duration 12 weeks pain Impairment 6/10 pain in low back, LLE Short Term Goal (STG) Pt will report pain 4/10 or less with daily functional activities. STG Duration 6 weeks Long-Term Goal (LTG) Pt will report pain 2/10 or less with daily functional activities. LTG Duration 12 weeks Physical Therapy Plan Frequency and Duration Frequency of Treatment 2x/Week Duration of Treatment 12 weeks Plan of Care Start Date 12/27/18 Plan of Care End Date 03/21/19 Therapeutic Interventions Therapeutic Interventions Aquatic Therapy Balance Training Gait Training Home Exercise Program Manual Therapy Neuromuscular Re-education Orthotic/Prosthetic Management Patient/Caregiver Education Self-Care/Home Management Sensory Integration Soft Tissue Mobilization Taping Therapeutic Activities Therapeutic Exercises Next Visit Focus/Plan Next Note Type Treatment Note Next Visit Plan Progress toward independent aquatic exercise program.
--- NOTE | 2019-02-26 15:04 | PT.OTN ---
Current Diagnoses Other intervertebral disc displacement, lumbar region (02/26/19) Physical Therapy Treatment Note PT-OP-A Visit Information Start: 12/27/18 17:26 Freq: Status: Active Protocol: Document 02/26/19 11:30 LJ (Rec: 02/26/19 15:04 LJ [id number]) Out-Patient Physical Therapy Visit Information Visit Information Visit Type Aquatic Treatment Note Visit Start Time 11:30 Visit Stop Time 12:20 Total Visit Minutes 35 Visit Number 18 Number of P D DRIVER Visits 2 PT-OP-B Current Condition Start: 12/27/18 17:26 Freq: Status: Active Protocol: Document 12/27/18 11:20 RCC (Rec: 12/27/18 17:57 RCC [email or web address]) Current Condition History of Current Condition Onset Date 2 yrs Current Complaints low back pain, R knee pain, difficulty with lifting History of Current Condition Pt is a 68 y/o male presenting back to skilled physical therapy s/p surgical removal of portion of colon d/t colon cancer. Pt reports that he feels like he has no core musculature, and his low back is still painful with radiating pain down lateral L leg to foot. Pt admits that his radiating pain is somewhat less due to being laid-up over the past month recovering from surgery. Pt was enrolled in aquatic PT earlier this year and is motivated to get back into it. Pt reports bilateral foot numbness, and R leg weakness d/t having quadriceps reattachment in 2017 on the R. 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 do bee-keeping which includes lifting 50 lbs Current Functional Impairments (Reported) Functional Limitations- Mobility/Gait increases pain Functional Limitations- Recreation/ uanble to do bee-keeping due Hobbies to inability to lift Personal Factors Other Personal Factors That May Effect obesity, h/o angina/cardiac Therapy/Recovery issues, HTN, recent colon surgery/CA PT-OP-C Subjective Start: 12/27/18 17:26 Freq: Status: Active Protocol: Document 02/26/19 11:30 LJ (Rec: 02/26/19 15:04 LJ [id number]) OP-PT Subjective Patient Comments Patient Comments Pt states he is feeling good. Arrived 15 min early d/t needing to leave early for an appointment. PT-OP-G Mobility & Gait Start: 12/27/18 17:26 Freq: Status: Active Protocol: Document 12/27/18 11:20 RCC (Rec: 12/27/18 17:57 [facility] [email or web address]) OP Mobility Evaluation Bed Mobility Rolling mod indep with increased time and pain Supine to and from Sit mod indep with increased time and pain OP Gait Assessment Gait Deviations General Gait Pattern Antalgic Decreased Stride Length Flexed Trunk Wide Based Gait Factors Limiting Gait Function Factors Limiting Gait Function Decreased Activity Tolerance Decreased Sensation Decreased Strength Limited Range of Motion Pain PT-OP-H Neuro Start: 12/27/18 17:26 Freq: Status: Active Protocol: Document 12/27/18 11:20 RCC (Rec: 12/27/18 17:57 [facility] [email or web address]) Sensation Evaluation Gross Sensation Gross Sensation Left LE Impaired Right LE Impaired Comments Summary Comments pt reports B foot numbness PT-OP-K Range of Motion Start: 12/27/18 17:26 Freq: Status: Active Protocol: Document 12/27/18 11:20 RCC (Rec: 12/27/18 17:57 [facility] [email or web address]) Knee Goniometric Range of Motion Knee Left Flexion Active (degrees) 126 Extension Active (degrees) 0 Right Knee ROM WFL No Flexion Active (degrees) 119 Extension Active (degrees) 4 Extension Passive (degrees) 0 PT-OP-M Strength Start: 12/27/18 17:26 Freq: Status: Active Protocol: Document 12/27/18 11:20 RCC (Rec: 12/27/18 17:57 [facility] [email or web address]) Trunk Strength Trunk Manual Muscle Testing Core Stabilization Hooklying- holding scapula off of table (partial sit-up) 5 seconds Supine- bilateral leg lift/ hold 3 seconds Hip Strength Hip Manual Muscle Testing Right Flexion (L2) 4- Good- Extension (S1) 3- Fair- Abduction 3 Fair External Rotation 3+ Fair+ Internal Rotation 3+ Fair+ Left Flexion (L2) 4- Good- Extension (S1) 3- Fair- Abduction 3 Fair External Rotation 3+ Fair+ Internal Rotation 4- Good- Knee Strength Knee Manual Muscle Testing Right Flexion (S2) 4- Good- Extension (L3) 3+ Fair+ Left Flexion (S2) 4- Good- Extension (L3) 4 Good Ankle/Foot Strength Ankle and Foot Manual Muscle Testing Left Dorsiflexion (L4) 3 Fair Right Dorsiflexion (L4) 5 Normal Toe Strength Toe Manual Muscle Testing Right Great Toe Extension 5 Normal Left Great Toe Extension 3+ Fair+ PT-OP-S Aquatic Treatment Start: 12/27/18 17:26 Freq: Status: Active Protocol: Document 02/26/19 11:30 (Rec: 02/26/19 15:04 [id number]) Aquatics Treatment Pool Entry/Exit Pool Entry/Exit Method Stairs Assistance Independent Water Walking figure 8's around boxes Water Level Waist Level Comments 2 boxes forward and back quick reverses fwd/bck Water Level Chest Level Walking Equipment Resistance Fins Level of Assistance Verbal Cues lunge walking Water Level Chest Level september, straight leg september Water Level Chest Level Walking Equipment Ankle Weight- 5.0# Level of Assistance Verbal Cues Comments 2 laps Lower Extremity Exercises HS curls Details standing at wall w/min hand support Body Position Standing Water Level Chest Level Equipment large resistance fins Reps/Duration 2x10 bilat Comments cues for no hip flexion and erect posture HS curls and kickbacks Details standing at wall w/min hand support Body Position Standing Water Level Chest Level Equipment Ankle Weight- 5.0# Reps/Duration 2x10 bilat Comments cues for no hip flexion and erect posture CC,CCW Details standing at wall w/min hand support Body Position Standing Water Level Chest Level Equipment Ankle Weight- 5.0# Reps/Duration 2x 10 bilat Comments cues for core stab Lower Extremity Stretches lateral trunk and ITb stretch Body Position Standing Water Level Chest Level Reps/Duration 4 min intermittently Comments holding wall Upper Extremity Exercises stretch cords-rows, pull downs Body Position Standing Water Level Chest Level Reps/Duration 2x10 Comments cues for scap retraction lat pull down, IR/ER Body Position Standing Water Level Chest Level Reps/Duration 12x bilat Comments cues for core stab Balance stop start walking Water Level Chest Level Equipment 5 min PT-OP-T Assessment and Plan Start: 12/27/18 17:26 Freq: Status: Active Protocol: Document 02/26/19 11:30 (Rec: 02/26/19 15:04 [id number]) Physical Therapy Assessment Goals Recreational Activities 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 with bee- keeping (unable to lift hive ~ 50 lbs) Alf Goal (LTG) Pt will be demonstrate the ability to lift 50 lbs with good body mechanics and no verbal cuing to return to indep bee-keeping. LTG Duration 12 weeks Perceived Disability Impairment Modified Oswestry Score 40% Alf Goal (LTG) Pt will grade overall perceived disability on the Modified Oswestry Questionnaire to at least 28% or less. LTG Duration 12 weeks knowledge deficit Impairment pt not indep. with aquatic home program Feeder Tender Goal (LTG) Pt will report tolerance to indep. aquatic home exercise program for 45 min, 2x/wk (4 total if including PT treatments). LTG Duration 12 weeks weakness Impairment Core and LE weakness Short Term Goal (STG) Pt will have MMT of LE strength graded 4/5 or greater . STG Duration 6 weeks Feeder Tender Goal (LTG) Pt will have MMT of LE strength graded 4+/5 or greater, and be able to hold scapula off of table in partial sit-up position, as well as hold BLE lift for 10 seconds with each instance. LTG Duration 12 weeks pain Impairment 6/10 pain in low back, LLE Short Term Goal (STG) Pt will report pain 4/10 or less with daily functional activities. STG Duration 6 weeks Alf Goal (LTG) Pt will report pain 2/10 or less with daily functional activities. LTG Duration 12 weeks Assessment Summary Assessment Pt states he did most of his exercises before session started. Tolerated tx well and will be ready for d/c at end of month Physical Therapy Plan Frequency and Duration Frequency of Treatment 2x/Week Duration of Treatment 12 weeks Plan of Care Start Date 12/27/18 Plan of Care End Date 03/21/19 Therapeutic Interventions Therapeutic Interventions Aquatic Therapy Balance Training Gait Training Home Exercise Program Manual Therapy Neuromuscular Re-education Orthotic/Prosthetic Management Patient/Caregiver Education Self-Care/Home Management Sensory Integration Soft Tissue Mobilization Taping Therapeutic Activities Therapeutic Exercises Discharge Physical Therapy Discharge Comments Completed PT. Patient to have surgery on intestines. Next Visit Focus/Plan Next Note Type Treatment Note Next Visit Plan Progress toward independent aquatic exercise program.
--- NOTE | 2019-02-28 14:58 | PT.OTN ---
Current Diagnoses Other intervertebral disc displacement, lumbar region (02/26/19) Physical Therapy Treatment Note PT-OP-A Visit Information Start: 12/27/18 17:26 Freq: Status: Active Protocol: Document 02/26/19 11:30 LJ (Rec: 02/26/19 15:04 LJ [id number]) Out-Patient Physical Therapy Visit Information Visit Information Visit Type Aquatic Treatment Note Visit Start Time 11:30 Visit Stop Time 12:20 Total Visit Minutes 35 Visit Number 18 Number of SENIOR MANAGER MMCOE Visits 2 PT-OP-B Current Condition Start: 12/27/18 17:26 Freq: Status: Active Protocol: Document 12/27/18 11:20 RCC (Rec: 12/27/18 17:57 RCC [email or web address]) Current Condition History of Current Condition Onset Date 2 yrs Current Complaints low back pain, R knee pain, difficulty with lifting History of Current Condition Pt is a 68 y/o male presenting back to skilled physical therapy s/p surgical removal of portion of colon d/t colon cancer. Pt reports that he feels like he has no core musculature, and his low back is still painful with radiating pain down lateral L leg to foot. Pt admits that his radiating pain is somewhat less due to being laid-up over the past month recovering from surgery. Pt was enrolled in aquatic PT earlier this year and is motivated to get back into it. Pt reports bilateral foot numbness, and R leg weakness d/t having quadriceps reattachment in 2017 on the R. 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 do bee-keeping which includes lifting 50 lbs Current Functional Impairments (Reported) Functional Limitations- Mobility/Gait increases pain Functional Limitations- Recreation/ uanble to do bee-keeping due Hobbies to inability to lift Personal Factors Other Personal Factors That May Effect obesity, h/o angina/cardiac Therapy/Recovery issues, HTN, recent colon surgery/CA PT-OP-C Subjective Start: 12/27/18 17:26 Freq: Status: Active Protocol: Document 02/28/19 14:57 LJ (Rec: 02/28/19 14:58 LJ [email or web address]) OP-PT Subjective Patient Comments Patient Comments No Show PT-OP-G Mobility & Gait Start: 12/27/18 17:26 Freq: Status: Active Protocol: Document 12/27/18 11:20 RCC (Rec: 12/27/18 17:57 RCC [email or web address]) OP Mobility Evaluation Bed Mobility Rolling mod indep with increased time and pain Supine to and from Sit mod indep with increased time and pain OP Gait Assessment Gait Deviations General Gait Pattern Antalgic Decreased Stride Length Flexed Trunk Wide Based Gait Factors Limiting Gait Function Factors Limiting Gait Function Decreased Activity Tolerance Decreased Sensation Decreased Strength Limited Range of Motion Pain PT-OP-H Neuro Start: 12/27/18 17:26 Freq: Status: Active Protocol: Document 12/27/18 11:20 RCC (Rec: 12/27/18 17:57 RCC [email or web address]) Sensation Evaluation Gross Sensation Gross Sensation Left LE Impaired Right LE Impaired Comments Summary Comments pt reports B foot numbness PT-OP-K Range of Motion Start: 12/27/18 17:26 Freq: Status: Active Protocol: Document 12/27/18 11:20 RCC (Rec: 12/27/18 17:57 RCC [email or web address]) Knee Goniometric Range of Motion Knee Left Flexion Active (degrees) 126 Extension Active (degrees) 0 Right Knee ROM WFL No Flexion Active (degrees) 119 Extension Active (degrees) 4 Extension Passive (degrees) 0 PT-OP-M Strength Start: 12/27/18 17:26 Freq: Status: Active Protocol: Document 12/27/18 11:20 RCC (Rec: 12/27/18 17:57 RCC [email or web address]) Trunk Strength Trunk Manual Muscle Testing Core Stabilization Hooklying- holding scapula off of table (partial sit-up) 5 seconds Supine- bilateral leg lift/ hold 3 seconds Hip Strength Hip Manual Muscle Testing Right Flexion (L2) 4- Good- Extension (S1) 3- Fair- Abduction 3 Fair External Rotation 3+ Fair+ Internal Rotation 3+ Fair+ Left Flexion (L2) 4- Good- Extension (S1) 3- Fair- Abduction 3 Fair External Rotation 3+ Fair+ Internal Rotation 4- Good- Knee Strength Knee Manual Muscle Testing Right Flexion (S2) 4- Good- Extension (L3) 3+ Fair+ Left Flexion (S2) 4- Good- Extension (L3) 4 Good Ankle/Foot Strength Ankle and Foot Manual Muscle Testing Left Dorsiflexion (L4) 3 Fair Right Dorsiflexion (L4) 5 Normal Toe Strength Toe Manual Muscle Testing Right Great Toe Extension 5 Normal Left Great Toe Extension 3+ Fair+ PT-OP-S Aquatic Treatment Start: 12/27/18 17:26 Freq: Status: Active Protocol: Document 02/26/19 11:30 JAMIN (Rec: 02/26/19 15:04 [id number]) Aquatics Treatment Pool Entry/Exit Pool Entry/Exit Method Stairs Assistance Independent Water Walking figure 8's around boxes Water Level Waist Level Comments 2 boxes forward and back quick reverses fwd/bck Water Level Chest Level Walking Equipment Resistance Fins Level of Assistance Verbal Cues lunge walking Water Level Chest Level march, straight leg september Water Level Chest Level Walking Equipment Ankle Weight- 5.0# Level of Assistance Verbal Cues Comments 2 laps Lower Extremity Exercises HS curls Details standing at wall w/min hand support Body Position Standing Water Level Chest Level Equipment large resistance fins Reps/Duration 2x10 bilat Comments cues for no hip flexion and erect posture HS curls and kickbacks Details standing at wall w/min hand support Body Position Standing Water Level Chest Level Equipment Ankle Weight- 5.0# Reps/Duration 2x10 bilat Comments cues for no hip flexion and erect posture CC,CCW Details standing at wall w/min hand support Body Position Standing Water Level Chest Level Equipment Ankle Weight- 5.0# Reps/Duration 2x 10 bilat Comments cues for core stab Lower Extremity Stretches lateral trunk and ITb stretch Body Position Standing Water Level Chest Level Reps/Duration 4 min intermittently Comments holding wall Upper Extremity Exercises stretch cords-rows, pull downs Body Position Standing Water Level Chest Level Reps/Duration 2x10 Comments cues for scap retraction lat pull down, IR/ER Body Position Standing Water Level Chest Level Reps/Duration 12x bilat Comments cues for core stab Balance stop start walking Water Level Chest Level Equipment 5 min PT-OP-T Assessment and Plan Start: 12/27/18 17:26 Freq: Status: Active Protocol: Document 02/26/19 11:30 JAMIN (Rec: 02/26/19 15:04 [id number]) Physical Therapy Assessment Goals Recreational Activities 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 with bee- keeping (unable to lift hive ~ 50 lbs) Spearer Goal (LTG) Pt will be demonstrate the ability to lift 50 lbs with good body mechanics and no verbal cuing to return to indep bee-keeping. LTG Duration 12 weeks Perceived Disability Impairment Modified Oswestry Score 40% Senior Care Goal (LTG) Pt will grade overall perceived disability on the Modified Oswestry Questionnaire to at least 28% or less. LTG Duration 12 weeks knowledge deficit Impairment pt not indep. with aquatic home program Spearer Goal (LTG) Pt will report tolerance to indep. aquatic home exercise program for 45 min, 2x/wk (4 total if including PT treatments). LTG Duration 12 weeks weakness Impairment Core and LE weakness Short Term Goal (STG) Pt will have MMT of LE strength graded 4/5 or greater . STG Duration 6 weeks Spearer Goal (LTG) Pt will have MMT of LE strength graded 4+/5 or greater, and be able to hold scapula off of table in partial sit-up position, as well as hold BLE lift for 10 seconds with each instance. LTG Duration 12 weeks pain Impairment 6/10 pain in low back, LLE Short Term Goal (STG) Pt will report pain 4/10 or less with daily functional activities. STG Duration 6 weeks Spearer Goal (LTG) Pt will report pain 2/10 or less with daily functional activities. LTG Duration 12 weeks Assessment Summary Assessment Pt states he did most of his exercises before session started. Tolerated tx well and will be ready for d/c at end of month Physical Therapy Plan Frequency and Duration Frequency of Treatment 2x/Week Duration of Treatment 12 weeks Plan of Care Start Date 12/27/18 Plan of Care End Date 03/21/19 Therapeutic Interventions Therapeutic Interventions Aquatic Therapy Balance Training Gait Training Home Exercise Program Manual Therapy Neuromuscular Re-education Orthotic/Prosthetic Management Patient/Caregiver Education Self-Care/Home Management Sensory Integration Soft Tissue Mobilization Taping Therapeutic Activities Therapeutic Exercises Discharge Physical Therapy Discharge Comments Completed PT. Patient to have surgery on intestines. Next Visit Focus/Plan Next Note Type Treatment Note Next Visit Plan Progress toward independent aquatic exercise program.
--- NOTE | 2019-03-12 15:53 | PT.OTN ---
Current Diagnoses Other intervertebral disc displacement, lumbar region (02/26/19) Physical Therapy Treatment Note PT-OP-A Visit Information Start: 12/27/18 17:26 Freq: Status: Active Protocol: Document 03/12/19 15:43 LJ (Rec: 03/12/19 15:53 LJ [email or web address]) Out-Patient Physical Therapy Visit Information Visit Information Visit Type Aquatic Treatment Note Visit Start Time 11:30 Visit Stop Time 12:20 Total Visit Minutes 3,545 Visit Number 19 Number of FORMS EXAMINER Visits 3 PT-OP-B Current Condition Start: 12/27/18 17:26 Freq: Status: Active Protocol: Document 12/27/18 11:20 RCC (Rec: 12/27/18 17:57 RCC [email or web address]) Current Condition History of Current Condition Onset Date 2 yrs Current Complaints low back pain, R knee pain, difficulty with lifting History of Current Condition Pt is a 68 y/o male presenting back to skilled physical therapy s/p surgical removal of portion of colon d/t colon cancer. Pt reports that he feels like he has no core musculature, and his low back is still painful with radiating pain down lateral L leg to foot. Pt admits that his radiating pain is somewhat less due to being laid-up over the past month recovering from surgery. Pt was enrolled in aquatic PT earlier this year and is motivated to get back into it. Pt reports bilateral foot numbness, and R leg weakness d/t having quadriceps reattachment in 2017 on the R. 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 do bee-keeping which includes lifting 50 lbs Current Functional Impairments (Reported) Functional Limitations- Mobility/Gait increases pain Functional Limitations- Recreation/ uanble to do bee-keeping due Hobbies to inability to lift Personal Factors Other Personal Factors That May Effect obesity, h/o angina/cardiac Therapy/Recovery issues, HTN, recent colon surgery/CA PT-OP-C Subjective Start: 12/27/18 17:26 Freq: Status: Active Protocol: Document 03/12/19 15:43 LJ (Rec: 03/12/19 15:53 LJ [email or web address]) OP-PT Subjective Patient Comments Patient Comments Pt still c/o tightness along lateral side of left LE. States his doctor wants to do a right knee replacement but pt isn't sure he wants to do the surgery PT-OP-G Mobility & Gait Start: 12/27/18 17:26 Freq: Status: Active Protocol: Document 12/27/18 11:20 RCC (Rec: 12/27/18 17:57 RCC [email or web address]) OP Mobility Evaluation Bed Mobility Rolling mod indep with increased time and pain Supine to and from Sit mod indep with increased time and pain OP Gait Assessment Gait Deviations General Gait Pattern Antalgic Decreased Stride Length Flexed Trunk Wide Based Gait Factors Limiting Gait Function Factors Limiting Gait Function Decreased Activity Tolerance Decreased Sensation Decreased Strength Limited Range of Motion Pain PT-OP-H Neuro Start: 12/27/18 17:26 Freq: Status: Active Protocol: Document 12/27/18 11:20 RCC (Rec: 12/27/18 17:57 [facility] [email or web address]) Sensation Evaluation Gross Sensation Gross Sensation Left LE Impaired Right LE Impaired Comments Summary Comments pt reports B foot numbness PT-OP-K Range of Motion Start: 12/27/18 17:26 Freq: Status: Active Protocol: Document 12/27/18 11:20 RCC (Rec: 12/27/18 17:57 [facility] [email or web address]) Knee Goniometric Range of Motion Knee Left Flexion Active (degrees) 126 Extension Active (degrees) 0 Right Knee ROM WFL No Flexion Active (degrees) 119 Extension Active (degrees) 4 Extension Passive (degrees) 0 PT-OP-M Strength Start: 12/27/18 17:26 Freq: Status: Active Protocol: Document 12/27/18 11:20 [facility] (Rec: 12/27/18 17:57 [facility] [email or web address]) Trunk Strength Trunk Manual Muscle Testing Core Stabilization Hooklying- holding scapula off of table (partial sit-up) 5 seconds Supine- bilateral leg lift/ hold 3 seconds Hip Strength Hip Manual Muscle Testing Right Flexion (L2) 4- Good- Extension (S1) 3- Fair- Abduction 3 Fair External Rotation 3+ Fair+ Internal Rotation 3+ Fair+ Left Flexion (L2) 4- Good- Extension (S1) 3- Fair- Abduction 3 Fair External Rotation 3+ Fair+ Internal Rotation 4- Good- Knee Strength Knee Manual Muscle Testing Right Flexion (S2) 4- Good- Extension (L3) 3+ Fair+ Left Flexion (S2) 4- Good- Extension (L3) 4 Good Ankle/Foot Strength Ankle and Foot Manual Muscle Testing Left Dorsiflexion (L4) 3 Fair Right Dorsiflexion (L4) 5 Normal Toe Strength Toe Manual Muscle Testing Right Great Toe Extension 5 Normal Left Great Toe Extension 3+ Fair+ PT-OP-S Aquatic Treatment Start: 12/27/18 17:26 Freq: Status: Active Protocol: Document 03/12/19 15:43 LJ (Rec: 03/12/19 15:53 LJ [email or web address]) Aquatics Treatment Pool Entry/Exit Pool Entry/Exit Method Stairs Assistance Independent Water Walking quick reverses fwd/bck Water Level Chest Level Walking Equipment Resistance Fins Level of Assistance Verbal Cues lunge walking Water Level Chest Level september, straight leg september Water Level Chest Level Walking Equipment Ankle Weight- 5.0# Level of Assistance Verbal Cues Comments 2 laps fwd,bck,side Water Level Chest Level Walking Equipment Ankle Weight- 5.0# Level of Assistance Verbal Cues Lower Extremity Exercises pull downs with noodle-hip ext, knee ext Body Position Standing Water Level Chest Level Equipment Large Noodle Reps/Duration 12 each bilat Comments assist with stabilizing noodle figure 8's Body Position Standing Comments with hip/knee flexed at 90/90, leading with knee HS curls and kickbacks Details standing at wall w/min hand support Body Position Standing Water Level Chest Level Equipment Ankle Weight- 5.0# Reps/Duration 2x10 bilat Comments cues for no hip flexion and erect posture CC,CCW Details standing at wall w/min hand support Body Position Standing Water Level Chest Level Equipment Ankle Weight- 5.0# Reps/Duration 2x 10 bilat Comments cues for core stab hip flex/ext, ab/ad Details standing at wall w/min hand support Body Position Standing Water Level Chest Level Equipment large resistance fins Reps/Duration 2x10 bilat Lower Extremity Stretches quads Details and hip flex Equipment hydrofit cuffs Reps/Duration 2x lateral trunk and ITb stretch Body Position Standing Water Level Chest Level Reps/Duration 4 min intermittently Comments holding wall piriformis, hip ER Comments 2x 30 sec bilat hamstring, ITB, add Details at wall Body Position Standing Water Level Chest Level Equipment hydrofit cuffs and 1 lg noodle Reps/Duration [id number] hold Upper Extremity Exercises hor ab/ad, flex/ext Body Position Standing Water Level Chest Level Equipment lg hand bells Reps/Duration 15 bilat x2 Spinal Exercises spinal rotations w/2 stretch cords Body Position Standing Water Level Chest Level Reps/Duration 2 x 10 Comments both directions Balance stop start walking Water Level Chest Level Equipment 5 min Lititz Activities Lititz Activities Bicycle Cross [place] Hip Abduction/Adduction Other Activities pendulum burpees x3 directions 12 each Manual Techniques Aquatic Massage tennis ball rolling on Left TFL Other hamstring nerve glides Body Position Standing Water Level Chest Level Comments also nerve flossing PT-OP-T Assessment and Plan Start: 12/27/18 17:26 Freq: Status: Active Protocol: Document 03/12/19 15:43 LJ (Rec: 03/12/19 15:53 LJ [email or web address]) Physical Therapy Assessment Goals Recreational Activities 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 with bee- keeping (unable to lift hive ~ 50 lbs) [facility] Goal (LTG) Pt will be demonstrate the ability to lift 50 lbs with good body mechanics and no verbal cuing to return to indep bee-keeping. LTG Duration 12 weeks Perceived Disability Impairment Modified Oswestry Score 40% [facility] Goal (LTG) Pt will grade overall perceived disability on the Modified Oswestry Questionnaire to at least 28% or less. LTG Duration 12 weeks knowledge deficit Impairment pt not indep. with aquatic home program [facility] Goal (LTG) Pt will report tolerance to indep. aquatic home exercise program for 45 min, 2x/wk (4 total if including PT treatments). LTG Duration 12 weeks weakness Impairment Core and LE weakness Short Term Goal (STG) Pt will have MMT of LE strength graded 4/5 or greater . STG Duration 6 weeks [facility] Goal (LTG) Pt will have MMT of LE strength graded 4+/5 or greater, and be able to hold scapula off of table in partial sit-up position, as well as hold BLE lift for 10 seconds with each instance. LTG Duration 12 weeks pain Impairment 6/10 pain in low back, LLE Short Term Goal (STG) Pt will report pain 4/10 or less with daily functional activities. STG Duration 6 weeks [facility] Goal (LTG) Pt will report pain 2/10 or less with daily functional activities. LTG Duration 12 weeks Assessment Summary Assessment Tolerated hand lanza exercises well. Rolling LLE with tennis ball provided relief. Pt progressing well with increase in exercise complexity and intensity Physical Therapy Plan Frequency and Duration Frequency of Treatment 2x/Week Duration of Treatment 12 weeks Plan of Care Start Date 12/27/18 Plan of Care End Date 03/21/19 Therapeutic Interventions Therapeutic Interventions Aquatic Therapy Balance Training Gait Training Home Exercise Program Manual Therapy Neuromuscular Re-education Orthotic/Prosthetic Management Patient/Caregiver Education Self-Care/Home Management Sensory Integration Soft Tissue Mobilization Taping Therapeutic Activities Therapeutic Exercises Next Visit Focus/Plan Next Note Type Treatment Note Next Visit Plan Progress toward independent aquatic exercise program.
--- NOTE | 2019-03-14 14:36 | PT.OTN ---
Current Diagnoses Other intervertebral disc displacement, lumbar region (03/12/19) Physical Therapy Treatment Note PT-OP-A Visit Information Start: 12/27/18 17:26 Freq: Status: Active Protocol: Document 03/14/19 11:30 LJ (Rec: 03/14/19 14:36 LJ [email or web address]) Out-Patient Physical Therapy Visit Information Visit Information Visit Type Aquatic Treatment Note Visit Start Time 11:30 Visit Stop Time 12:20 Total Visit Minutes 3,545 Visit Number 20 Number of PRINTING PRESS MACHINIST Visits 4 PT-OP-B Current Condition Start: 12/27/18 17:26 Freq: Status: Active Protocol: Document 12/27/18 11:20 RCC (Rec: 12/27/18 17:57 RCC [email or web address]) Current Condition History of Current Condition Onset Date 2 yrs Current Complaints low back pain, R knee pain, difficulty with lifting History of Current Condition Pt is a 68 y/o male presenting back to skilled physical therapy s/p surgical removal of portion of colon d/t colon cancer. Pt reports that he feels like he has no core musculature, and his low back is still painful with radiating pain down lateral L leg to foot. Pt admits that his radiating pain is somewhat less due to being laid-up over the past month recovering from surgery. Pt was enrolled in aquatic PT earlier this year and is motivated to get back into it. Pt reports bilateral foot numbness, and R leg weakness d/t having quadriceps reattachment in 2017 on the R. 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 do bee-keeping which includes lifting 50 lbs Current Functional Impairments (Reported) Functional Limitations- Mobility/Gait increases pain Functional Limitations- Recreation/ uanble to do bee-keeping due Hobbies to inability to lift Personal Factors Other Personal Factors That May Effect obesity, h/o angina/cardiac Therapy/Recovery issues, HTN, recent colon surgery/CA PT-OP-C Subjective Start: 12/27/18 17:26 Freq: Status: Active Protocol: Document 03/14/19 11:30 LJ (Rec: 03/14/19 14:36 LJ [email or web address]) OP-PT Subjective Patient Comments Patient Comments Pt reports he will be having a stint inserted into his heart on Tuesday. Will need to be out of the water for 10 days. Also, tightness in his LLE persists. PT-OP-G Mobility & Gait Start: 12/27/18 17:26 Freq: Status: Active Protocol: Document 12/27/18 11:20 RCC (Rec: 12/27/18 17:57 [facility] [email or web address]) OP Mobility Evaluation Bed Mobility Rolling mod indep with increased time and pain Supine to and from Sit mod indep with increased time and pain OP Gait Assessment Gait Deviations General Gait Pattern Antalgic Decreased Stride Length Flexed Trunk Wide Based Gait Factors Limiting Gait Function Factors Limiting Gait Function Decreased Activity Tolerance Decreased Sensation Decreased Strength Limited Range of Motion Pain PT-OP-H Neuro Start: 12/27/18 17:26 Freq: Status: Active Protocol: Document 12/27/18 11:20 RCC (Rec: 12/27/18 17:57 [facility] [email or web address]) Sensation Evaluation Gross Sensation Gross Sensation Left LE Impaired Right LE Impaired Comments Summary Comments pt reports B foot numbness PT-OP-K Range of Motion Start: 12/27/18 17:26 Freq: Status: Active Protocol: Document 12/27/18 11:20 RCC (Rec: 12/27/18 17:57 [facility] [email or web address]) Knee Goniometric Range of Motion Knee Left Flexion Active (degrees) 126 Extension Active (degrees) 0 Right Knee ROM WFL No Flexion Active (degrees) 119 Extension Active (degrees) 4 Extension Passive (degrees) 0 PT-OP-M Strength Start: 12/27/18 17:26 Freq: Status: Active Protocol: Document 12/27/18 11:20 RCC (Rec: 12/27/18 17:57 [facility] [email or web address]) Trunk Strength Trunk Manual Muscle Testing Core Stabilization Hooklying- holding scapula off of table (partial sit-up) 5 seconds Supine- bilateral leg lift/ hold 3 seconds Hip Strength Hip Manual Muscle Testing Right Flexion (L2) 4- Good- Extension (S1) 3- Fair- Abduction 3 Fair External Rotation 3+ Fair+ Internal Rotation 3+ Fair+ Left Flexion (L2) 4- Good- Extension (S1) 3- Fair- Abduction 3 Fair External Rotation 3+ Fair+ Internal Rotation 4- Good- Knee Strength Knee Manual Muscle Testing Right Flexion (S2) 4- Good- Extension (L3) 3+ Fair+ Left Flexion (S2) 4- Good- Extension (L3) 4 Good Ankle/Foot Strength Ankle and Foot Manual Muscle Testing Left Dorsiflexion (L4) 3 Fair Right Dorsiflexion (L4) 5 Normal Toe Strength Toe Manual Muscle Testing Right Great Toe Extension 5 Normal Left Great Toe Extension 3+ Fair+ PT-OP-S Aquatic Treatment Start: 12/27/18 17:26 Freq: Status: Active Protocol: Document 03/14/19 11:30 LJ (Rec: 03/14/19 14:36 LJ [email or web address]) Aquatics Treatment Pool Entry/Exit Pool Entry/Exit Method Stairs Assistance Independent Water Walking lunge walking Water Level Chest Level march, straight leg september Water Level Chest Level Walking Equipment Ankle Weight- 5.0# Level of Assistance Verbal Cues Comments 2 laps fwd,bck,side Water Level Chest Level Walking Equipment Ankle Weight- 5.0# Level of Assistance Verbal Cues Lower Extremity Exercises HS curls Details standing at wall w/min hand support Body Position Standing Water Level Chest Level Equipment Ankle Weight- 5.0# Reps/Duration 2x10 bilat Comments cues for no hip flexion and erect posture HS curls and kickbacks Details standing at wall w/min hand support Body Position Standing Water Level Chest Level Equipment Ankle Weight- 5.0# Reps/Duration 2x10 bilat Comments cues for no hip flexion and erect posture CC,CCW Details standing at wall w/min hand support Body Position Standing Water Level Chest Level Equipment Ankle Weight- 5.0# Reps/Duration 2x 10 bilat Comments cues for core stab Lower Extremity Stretches quads Details and hip flex Equipment Large Noodle Reps/Duration 2x1:00 lateral trunk and ITb stretch Body Position Standing Water Level Chest Level Reps/Duration 2 min static hold Comments holding wall HC Body Position Standing Water Level Chest Level Comments 2x 30sec bilat Upper Extremity Stretches walking w/paddles Water Level Chest Level Reps/Duration 30 M Spinal Exercises spinal rotations w/2 stretch cords Body Position Standing Water Level Chest Level Reps/Duration 2 x 10 Comments both directions Balance stop start walking Water Level Chest Level Equipment 5 min Beggs Activities Beggs Activities Bicycle Cross [place] Hip Abduction/Adduction Other Activities pendulum burpees x3 directions 12 each crunches Intervals 30/15 mod intensity Manual Techniques Aquatic Massage Power roller on ITB 2 min PT-OP-T Assessment and Plan Start: 12/27/18 17:26 Freq: Status: Active Protocol: Document 03/14/19 11:30 JAMIN (Rec: 03/14/19 14:36 LJ [email or web address]) Physical Therapy Assessment Goals Recreational Activities 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 with bee- keeping (unable to lift hive ~ 50 lbs) Half-Way Goal (LTG) Pt will be demonstrate the ability to lift 50 lbs with good body mechanics and no verbal cuing to return to indep bee-keeping. LTG Duration 12 weeks Perceived Disability Impairment Modified Oswestry Score 40% Welfare Case Worker Goal (LTG) Pt will grade overall perceived disability on the Modified Oswestry Questionnaire to at least 28% or less. LTG Duration 12 weeks knowledge deficit Impairment pt not indep. with aquatic home program Half-Way Goal (LTG) Pt will report tolerance to indep. aquatic home exercise program for 45 min, 2x/wk (4 total if including PT treatments). LTG Duration 12 weeks weakness Impairment Core and LE weakness Short Term Goal (STG) Pt will have MMT of LE strength graded 4/5 or greater . STG Duration 6 weeks Half-Way Goal (LTG) Pt will have MMT of LE strength graded 4+/5 or greater, and be able to hold scapula off of table in partial sit-up position, as well as hold BLE lift for 10 seconds with each instance. LTG Duration 12 weeks pain Impairment 6/10 pain in low back, LLE Short Term Goal (STG) Pt will report pain 4/10 or less with daily functional activities. STG Duration 6 weeks Welfare Case Worker Goal (LTG) Pt will report pain 2/10 or less with daily functional activities. LTG Duration 12 weeks Assessment Summary Assessment Pt experienced relief with power roller on LLE. Progressing with strength and coordination as well as flexibility. Physical Therapy Plan Frequency and Duration Frequency of Treatment 2x/Week Duration of Treatment 12 weeks Plan of Care Start Date 12/27/18 Plan of Care End Date 03/21/19 Therapeutic Interventions Therapeutic Interventions Aquatic Therapy Balance Training Gait Training Home Exercise Program Manual Therapy Neuromuscular Re-education Orthotic/Prosthetic Management Patient/Caregiver Education Self-Care/Home Management Sensory Integration Soft Tissue Mobilization Taping Therapeutic Activities Therapeutic Exercises Next Visit Focus/Plan Next Note Type Treatment Note Next Visit Plan Progress toward independent aquatic exercise program.
--- NOTE | 2019-04-18 17:10 | PT.OPDS ---
Current Diagnoses Other intervertebral disc displacement, lumbar region (03/14/19) Visit Care Team Role Provider Type AGUILA Zaldivar Attending Provider Non-Staff Primary Care Provider Specialty: Medical Address: [address] [place] [address], [address], [place], [address] Email: Visit Number Visit Number 20 Discharge Summary PT-OP-B Current Condition Start: 12/27/18 17:26 Freq: Status: Active Protocol: Document 12/27/18 11:20 RCC (Rec: 12/27/18 17:57 RCC [email or web address]) Current Condition History of Current Condition Onset Date 2 yrs Current Complaints low back pain, R knee pain, difficulty with lifting History of Current Condition Pt is a 68 y/o male presenting back to skilled physical therapy s/p surgical removal of portion of colon d/t colon cancer. Pt reports that he feels like he has no core musculature, and his low back is still painful with radiating pain down lateral L leg to foot. Pt admits that his radiating pain is somewhat less due to being laid-up over the past month recovering from surgery. Pt was enrolled in aquatic PT earlier this year and is motivated to get back into it. Pt reports bilateral foot numbness, and R leg weakness d/t having quadriceps reattachment in 2017 on the R. 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 do bee-keeping which includes lifting 50 lbs Current Functional Impairments (Reported) Functional Limitations- Mobility/Gait increases pain Functional Limitations- Recreation/ uanble to do bee-keeping due Hobbies to inability to lift Personal Factors Other Personal Factors That May Effect obesity, h/o angina/cardiac Therapy/Recovery issues, HTN, recent colon surgery/CA PT-OP-C Subjective Start: 12/27/18 17:26 Freq: Status: Active Protocol: Document 03/14/19 11:30 LJ (Rec: 03/14/19 14:36 LJ [email or web address]) OP-PT Subjective Patient Comments Patient Comments Pt reports he will be having a stint inserted into his heart on Tuesday. Will need to be out of the water for 10 days. Also, tightness in his LLE persists. PT-OP-G Mobility & Gait Start: 12/27/18 17:26 Freq: Status: Active Protocol: Document 12/27/18 11:20 RCC (Rec: 12/27/18 17:57 [facility] [email or web address]) OP Mobility Evaluation Bed Mobility Rolling mod indep with increased time and pain Supine to and from Sit mod indep with increased time and pain OP Gait Assessment Gait Deviations General Gait Pattern Antalgic,Decreased Stride Length,Flexed Trunk,Wide Based Gait Factors Limiting Gait Function Factors Limiting Gait Function Decreased Activity Tolerance, Decreased Sensation,Decreased Strength,Limited Range of Motion,Pain PT-OP-H Neuro Start: 12/27/18 17:26 Freq: Status: Active Protocol: Document 12/27/18 11:20 RCC (Rec: 12/27/18 17:57 [facility] [email or web address]) Sensation Evaluation Gross Sensation Gross Sensation Left LE Impaired,Right LE Impaired Comments Summary Comments pt reports B foot numbness PT-OP-K Range of Motion Start: 12/27/18 17:26 Freq: Status: Active Protocol: Document 12/27/18 11:20 RCC (Rec: 12/27/18 17:57 [facility] [email or web address]) Knee Goniometric Range of Motion Knee Left Flexion Active (degrees) 126 Extension Active (degrees) 0 Right Knee ROM WFL No Flexion Active (degrees) 119 Extension Active (degrees) 4 Extension Passive (degrees) 0 PT-OP-M Strength Start: 12/27/18 17:26 Freq: Status: Active Protocol: Document 12/27/18 11:20 RCC (Rec: 12/27/18 17:57 [facility] [email or web address]) Trunk Strength Trunk Manual Muscle Testing Core Stabilization Hooklying- holding scapula off of table (partial sit-up) 5 seconds Supine- bilateral leg lift/ hold 3 seconds Hip Strength Hip Manual Muscle Testing Right Flexion (L2) 4- Good- Extension (S1) 3- Fair- Abduction 3 Fair External Rotation 3+ Fair+ Internal Rotation 3+ Fair+ Left Flexion (L2) 4- Good- Extension (S1) 3- Fair- Abduction 3 Fair External Rotation 3+ Fair+ Internal Rotation 4- Good- Knee Strength Knee Manual Muscle Testing Right Flexion (S2) 4- Good- Extension (L3) 3+ Fair+ Left Flexion (S2) 4- Good- Extension (L3) 4 Good Ankle/Foot Strength Ankle and Foot Manual Muscle Testing Left Dorsiflexion (L4) 3 Fair Right Dorsiflexion (L4) 5 Normal Toe Strength Toe Manual Muscle Testing Right Great Toe Extension 5 Normal Left Great Toe Extension 3+ Fair+ PT-OP-T Assessment and Plan Start: 12/27/18 17:26 Freq: Status: Active Protocol: Document 04/18/19 17:09 OSMAR (Rec: 04/18/19 17:10 [facility] [id number]) Physical Therapy Plan Discharge Physical Therapy Discharge Reasons No Longer Attending PT
== END 2019-04-25 15:55 | disposition home or self-care (01) ==
LOC: PHYS 11:30
PROVIDERS: PCP Nurse Practitioner Adult Health; Visit Provider Nurse Practitioner Adult Health
DX: M51.26 Other intervertebral disc displacement, lumbar region (principal)
CPT/HCPCS: 97113; 97162

== ENCOUNTER 2020-04-17 13:45 | Outpatient (RCR) | payer OTHER, SELFPAY ==
--- NOTE | 2019-04-23 15:13 | PT.OIE ---
Current Diagnoses Low back pain (04/23/19) Visit Care Team Role Provider Type Julieth Frias Attending Provider Non-Staff Primary Care Provider Specialty: Medical Address: [address] [place] [address], [place], [address] Email: Physical Therapy Initial Evaluation PT-OP-A Visit Information Start: 04/23/19 15:12 Freq: Status: Active Protocol: Document 04/23/19 15:13 [facility] (Rec: 04/23/19 16:05 [facility] [id number]) Out-Patient Physical Therapy Visit Information Visit Information Visit Type Initial Evaluation Visit Start Time 13:15 Visit Stop Time 14:05 Total Visit Minutes 50 Visit Number 1 Number of INTAKE RN Visits 0 Evaluation Information Evaluation Date 04/23/19 Precautions Precautions cardiac, colon surgery, newly diagnosed liver dysfunction PT-OP-B Current Condition Start: 04/23/19 15:12 Freq: Status: Active Protocol: Document 04/23/19 15:13 [facility] (Rec: 04/23/19 16:05 [facility] [id number]) Current Condition History of Current Condition Onset Date 2 yrs Current Complaints LBP History of Current Condition Reports persistent, function- limiting LBP with residual weakness in LE's. Previously having PT with best benefit from aquatic PT but had to discontinue due to medical issues. Underwent spinal decompression 2 years ago with no relief of pain. Has now had second opinion appointment and will be consulting further. Cortisone injection 4 wks ago helpful, has been trying to gradually increase his activity level to not overdo it. Not doing any exercises at home; stating I never sit down at home so am doing a lot of exercises. Found aquatic therapy helpful. Has a tendency to overdo. States he was told this am he has a problem with his liver, has no idea about plan for treatment. Pain is in lumbar spine and into LE's in past. Tingling both feet, reports tests for circulation show no problem. Some numbness bilateral feet. States no reflexes in LE's. Pain anterior left hip since helping a friend clean [employer] tub yesterday. Also had increase in pain a couple weeks ago with a day of extensive walking. Prior Treatments and Tests Cortisone injection 4 wks ago, no pain since shot, pain medicaitons, aquatic PT. Future Testing and Treatments Planned Sees orthopedist at [place] in 1 wk to discuss POC. Treatment Goals Patient/Caregiver Goals Strengthen his muscles and be able to resume prior functional level. Requests a couple more PT visits in the pool since he had to discontinue aquatic PT early. 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 Current Functional Impairments (Reported) Functional Limitations- ADL's fatigues Functional Limitations- Mobility/Gait limited distances Functional Limitations- Work/School Has not returned to prior activities due to fear of hurting his back PT-OP-C Subjective Start: 04/23/19 15:12 Freq: Status: Active Protocol: Document 04/23/19 15:13 [facility] (Rec: 04/24/19 14:48 [facility] [id number]) OP-PT Pain Assessment Pain Assessment Grid Paper Pain Assessment Grid Completed Yes Location anterior left hip Intensity 6 lumbar spine Pain Location Details central Intensity 4 Home Pain Medication Use Pain Medications Used No Pain Behaviors Pain Behaviors Facial Grimacing,Guarding, Wincing PT-OP-J Posture/Palpation/Skin Start: 04/23/19 15:12 Freq: Status: Active Protocol: Document 04/23/19 15:13 [facility] (Rec: 04/24/19 14:48 [facility] [id number]) Posture Evaluation Position Standing Head/C-Spine Posture Forward Head T-Spine Posture Increased Kyphosis L-Spine Posture Increased Lordosis Shoulder Posture (L) Rounded,(R) Rounded,(L) Forward,(R) Forward Pelvis Posture Anteriorly Tilted Hip Posture (L) Externally Rotated,(R) Externally Rotated Palpation Assessment Location anterior left hip Palpation Findings Soft Tissue Tightness, Tenderness piriformis Palpation Findings Soft Tissue Tightness PT-OP-K Range of Motion Start: 04/23/19 15:12 Freq: Status: Active Protocol: Document 04/23/19 15:13 [facility] (Rec: 04/24/19 14:48 [facility] [id number]) Lumbar Spine Range of Motion Lumbar Spine Active Flexion 30 Extension 15 Lateral Flexion Left 30 Lateral Flexion Right 30 ROM Limitations Soft Tissue Tightness Hip Goniometric Range of Motion Hip Left Flexion w/Knee Flexed 100 Straight Leg Raise 55 Extension 0 Internal Rotation 20 External Rotation 40 Right Flexion w/Knee Flexed 100 Straight Leg Raise 50 Extension 0 Internal Rotation 20 External Rotation 45 Hip ROM Limitations Hip ROM Limitations Soft Tissue Tightness,Pain Knee Goniometric Range of Motion Knee Left Knee ROM WFL Yes Right Knee ROM WFL Yes Ankle and Foot Goniometric Range of Motion Ankle and Foot renato Dorsiflexion with Knee Flexed 5 Dorsiflexion with Knee Extended 0 Plantarflexion 40 PT-OP-M Strength Start: 04/23/19 15:12 Freq: Status: Active Protocol: Document 04/23/19 15:13 [facility] (Rec: 04/24/19 14:48 [facility] [id number]) Trunk Strength Trunk Manual Muscle Testing Flexion 4- Good- Extension 4- Good- Hip Strength Hip Manual Muscle Testing Left Flexion (L2) 4+ Good+ Extension (S1) 3- Fair- Abduction 3+ Fair+ External Rotation 4 Good Internal Rotation 4+ Good+ Right Flexion (L2) 4+ Good+ Extension (S1) 3- Fair- Abduction 4- Good- External Rotation 4- Good- Internal Rotation 4 Good Knee Strength Knee Manual Muscle Testing Left Flexion (S2) 4+ Good+ Extension (L3) 4+ Good+ Right Flexion (S2) 4+ Good+ Extension (L3) 4- Good- Ankle/Foot Strength Ankle and Foot Manual Muscle Testing Left Dorsiflexion (L4) 4- Good- Right Dorsiflexion (L4) 4+ Good+ Toe Strength Toe Manual Muscle Testing Left Great Toe Extension 4- Good- Right Great Toe Flexion 4 Good PT-OP-Q Treatments Start: 04/23/19 15:12 Freq: Status: Active Protocol: Document 04/23/19 15:13 [facility] (Rec: 04/24/19 14:29 [facility] [id number]) Self-Care/Home Management Treatment Education Patient Education Body Mechanics,Home Exercise Program,Joint Protection, Posture,Safety Other Education Proper lifting technique Issued written instructions for HEP PT-OP-T Assessment and Plan Start: 04/23/19 15:12 Freq: Status: Active Protocol: Document 04/23/19 15:13 [facility] (Rec: 04/24/19 14:29 [facility] [id number]) Physical Therapy Assessment Rehab Potential Rehabilitation Potential Good Evaluation Complexity Number of Personal Factors/Comorbidities 3 or More Number of Body Systems Impaired 4 or More Clinical Presentation at Evaluation Evolving Impairments Impairments Activity Tolerance,Posture,ROM ,Strength Goals Recreational Activities 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 LTG Duration 06/24/19 Perceived Disability Impairment Modified Oswestry Score 36% Long-Term Goal (LTG) Pt will grade overall perceived disability on the Modified Oswestry Questionnaire to 20% or less. LTG Duration 06/24/19 knowledge deficit Impairment Patient doesn't currently perform HEP Short Term Goal (STG) Instruct in HEP STG Duration 05/07/19 Long-Term Goal (LTG) Pt will report good tolerance and compliance to indep HEP and aquatic exercise progam LTG Duration 06/24/19 weakness Impairment Core and LE weakness STG Duration 6 weeks Long-Term Goal (LTG) Pt will have MMT of LE strength graded 4+/5 or greater LTG Duration 12 weeks Physical Therapy Plan Frequency and Duration Frequency of Treatment 2x/Week Duration of Treatment 8 wks Plan of Care Start Date 05/23/19 Plan of Care End Date 06/24/19 Therapeutic Interventions Therapeutic Interventions Aquatic Therapy,Home Exercise Program,Manual Therapy, Neuromuscular Re-education, Patient/Caregiver Education, Self-Care/Home Management,Soft Tissue Mobilization,Taping, Therapeutic Activities, Therapeutic Exercises Modalities Cold Pack/Ice Massage,Electric Stimulation,Hot Packs, Ultrasound Next Visit Focus/Plan Next Note Type Treatment Note Next Visit Plan Review HEP, recumbent elliptical, review and have patient demonstrate safe lifting technique.
--- NOTE | 2019-04-23 15:13 | PT.OPPOC ---
Current Diagnoses Low back pain (04/23/19) Visit Care Team Role Provider Type Julieth Frias Attending Provider Non-Staff Primary Care Provider Specialty: Medical Address: [address] [place] [address], [place], [address] Email: Plan Of Care PT-OP-T Assessment and Plan Start: 04/23/19 15:12 Freq: Status: Active Protocol: Document 04/23/19 15:13 [facility] (Rec: 04/24/19 14:29 [facility] [id number]) Physical Therapy Assessment Rehab Potential Rehabilitation Potential Good Evaluation Complexity Number of Personal Factors/Comorbidities 3 or More Number of Body Systems Impaired 4 or More Clinical Presentation at Evaluation Evolving Impairments Impairments Activity Tolerance,Posture,ROM ,Strength Goals Recreational Activities 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 LTG Duration 06/24/19 Perceived Disability Impairment Modified Oswestry Score 36% Snf Goal (LTG) Pt will grade overall perceived disability on the Modified Oswestry Questionnaire to 20% or less. LTG Duration 06/24/19 knowledge deficit Impairment Patient doesn't currently perform HEP Short Term Goal (STG) Instruct in HEP STG Duration 05/07/19 Toll Gate Tender Goal (LTG) Pt will report good tolerance and compliance to indep HEP and aquatic exercise progam LTG Duration 06/24/19 weakness Impairment Core and LE weakness STG Duration 6 weeks Toll Gate Tender Goal (LTG) Pt will have MMT of LE strength graded 4+/5 or greater LTG Duration 12 weeks Physical Therapy Plan Frequency and Duration Frequency of Treatment 2x/Week Duration of Treatment 8 wks Plan of Care Start Date 05/23/19 Plan of Care End Date 06/24/19 Therapeutic Interventions Therapeutic Interventions Aquatic Therapy,Home Exercise Program,Manual Therapy, Neuromuscular Re-education, Patient/Caregiver Education, Self-Care/Home Management,Soft Tissue Mobilization,Taping, Therapeutic Activities, Therapeutic Exercises Modalities Cold Pack/Ice Massage,Electric Stimulation,Hot Packs, Ultrasound Next Visit Focus/Plan Next Note Type Treatment Note Next Visit Plan Review HEP, recumbent elliptical, review and have patient demonstrate safe lifting technique. Plan of Care Dates Plan of Care Start Date 05/23/19 Plan of Care End Date 06/24/19
--- NOTE | 2019-04-25 19:10 | PT.OTN ---
Current Diagnoses Low back pain (04/25/19) Physical Therapy Treatment Note PT-OP-A Visit Information Start: 04/23/19 15:12 Freq: Status: Active Protocol: Document 04/25/19 15:15 [facility] (Rec: 04/25/19 19:10 [facility] [id number]) Out-Patient Physical Therapy Visit Information Visit Information Visit Type Treatment Note Visit Start Time 15:15 Visit Stop Time 15:56 Total Visit Minutes 41 Visit Number 2 Number of TREAD BUILDER Visits 0 Evaluation Information Evaluation Date 04/23/19 Precautions Precautions cardiac, colon surgery, newly diagnosed liver dysfunction PT-OP-B Current Condition Start: 04/23/19 15:12 Freq: Status: Active Protocol: Document 04/23/19 15:13 [facility] (Rec: 04/23/19 16:05 [facility] [id number]) Current Condition History of Current Condition Onset Date 2 yrs Current Complaints LBP History of Current Condition Reports persistent, function- limiting LBP with residual weakness in LE's. Previously having PT with best benefit from aquatic PT but had to discontinue due to medical issues. Underwent spinal decompression 2 years ago with no relief of pain. Has now had second opinion appointment and will be consulting further. Cortisone injection 4 wks ago helpful, has been trying to gradually increase his activity level to not overdo it. Not doing any exercises at home; stating I never sit down at home so am doing a lot of exercises. Found aquatic therapy helpful. Has a tendency to overdo. States he was told this am he has a problem with his liver, has no idea about plan for treatment. Pain is in lumbar spine and into LE's in past. Tingling both feet, reports tests for circulation show no problem. Some numbness bilateral feet. States no reflexes in LE's. Pain anterior left hip since helping a friend clean [employer] tub yesterday. Also had increase in pain a couple weeks ago with a day of extensive walking. Prior Treatments and Tests Cortisone injection 4 wks ago, no pain since shot, pain medicaitons, aquatic PT. Future Testing and Treatments Planned Sees orthopedist at [place] in 1 wk to discuss POC. Treatment Goals Patient/Caregiver Goals Strengthen his muscles and be able to resume prior functional level. Requests a couple more PT visits in the pool since he had to discontinue aquatic PT early. 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 (Rec: 04/25/19 19:10 [facility] [id number]) OP-PT Subjective Patient Comments Patient Comments No new c/o PT-OP-J Posture/Palpation/Skin Start: 04/23/19 15:12 Freq: Status: Active Protocol: Document 04/23/19 15:13 [facility] (Rec: 04/24/19 14:48 [facility] [id number]) Posture Evaluation Position Standing Head/C-Spine Posture Forward Head T-Spine Posture Increased Kyphosis L-Spine Posture Increased Lordosis Shoulder Posture (L) Rounded,(R) Rounded,(L) Forward,(R) Forward Pelvis Posture Anteriorly Tilted Hip Posture (L) Externally Rotated,(R) Externally Rotated Palpation Assessment Location anterior left hip Palpation Findings Soft Tissue Tightness, Tenderness piriformis Palpation Findings Soft Tissue Tightness PT-OP-K Range of Motion Start: 04/23/19 15:12 Freq: Status: Active Protocol: Document 04/23/19 15:13 [facility] (Rec: 04/24/19 14:48 [facility] [id number]) Lumbar Spine Range of Motion Lumbar Spine Active Flexion 30 Extension 15 Lateral Flexion Left 30 Lateral Flexion Right 30 ROM Limitations Soft Tissue Tightness Hip Goniometric Range of Motion Hip Left Flexion w/Knee Flexed 100 Straight Leg Raise 55 Extension 0 Internal Rotation 20 External Rotation 40 Right Flexion w/Knee Flexed 100 Straight Leg Raise 50 Extension 0 Internal Rotation 20 External Rotation 45 Hip ROM Limitations Hip ROM Limitations Soft Tissue Tightness,Pain Knee Goniometric Range of Motion Knee Left Knee ROM WFL Yes Right Knee ROM WFL Yes Ankle and Foot Goniometric Range of Motion Ankle and Foot renato Dorsiflexion with Knee Flexed 5 Dorsiflexion with Knee Extended 0 Plantarflexion 40 PT-OP-M Strength Start: 04/23/19 15:12 Freq: Status: Active Protocol: Document 04/23/19 15:13 [facility] (Rec: 04/24/19 14:48 [facility] [id number]) Trunk Strength Trunk Manual Muscle Testing Flexion 4- Good- Extension 4- Good- Hip Strength Hip Manual Muscle Testing Left Flexion (L2) 4+ Good+ Extension (S1) 3- Fair- Abduction 3+ Fair+ External Rotation 4 Good Internal Rotation 4+ Good+ Right Flexion (L2) 4+ Good+ Extension (S1) 3- Fair- Abduction 4- Good- External Rotation 4- Good- Internal Rotation 4 Good Knee Strength Knee Manual Muscle Testing Left Flexion (S2) 4+ Good+ Extension (L3) 4+ Good+ Right Flexion (S2) 4+ Good+ Extension (L3) 4- Good- Ankle/Foot Strength Ankle and Foot Manual Muscle Testing Left Dorsiflexion (L4) 4- Good- Right Dorsiflexion (L4) 4+ Good+ Toe Strength Toe Manual Muscle Testing Left Great Toe Extension 4- Good- Right Great Toe Flexion 4 Good PT-OP-Q Treatments Start: 04/23/19 15:12 Freq: Status: Active Protocol: Document 04/25/19 15:15 [facility] (Rec: 04/25/19 19:10 [facility] [id number]) Cardio Equipment Recumbent Stepper (Sci-Fit) Duration (Minutes) 6 Resistance 1 Seat Position 17 Other emphasis on LE alignment Gym Equipment Sport Cord forward Exercise Details emphasis on core stab, gluteal activation Cord/Resistance green Reps/Duration 5 Comments c/o anterior left hip pain Therapeutic Exercises Supine Exercises TrA with hip ab/ER Resistance L2 TB Reps/Minutes 10x TrA with ball squeeze Reps/Minutes 10x hip flexor stretch Reps/Minutes 30x2 Comments side of mat table HS stretch Equipment Used strap and manual assist Reps/Minutes 30x2 piriformis Reps/Minutes 30x2 SKTC Reps/Minutes 30x2 Standing Exercises postural isometric Reps/Minutes 3x Comments wall shoulder extension Resistance L2 TB Reps/Minutes 10x5 row Resistance L2 TB Reps/Minutes 10x5 Gait Training Gait Activity level surface Comments mirror for visual feedback due to excess lateral shift and sway Self-Care/Home Management Treatment Education Patient Education Body Mechanics,Home Exercise Program,Joint Protection, Posture,Safety Other Education Instructed in standing hamstring stretch with written handout issued due to difficulty performing supine hamstring stretch PT-OP-T Assessment and Plan Start: 04/23/19 15:12 Freq: Status: Active Protocol: Document 04/25/19 15:15 [facility] (Rec: 04/25/19 19:10 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 LTG Duration 06/24/19 Perceived Disability Impairment Modified Oswestry Score 36% Intermediate Goal (LTG) Pt will grade overall perceived disability on the Modified Oswestry Questionnaire to 20% or less. LTG Duration 06/24/19 knowledge deficit Impairment Patient doesn't currently perform HEP Short Term Goal (STG) Instruct in HEP STG Duration 05/07/19 Taxi Proprietor Goal (LTG) Pt will report good tolerance and compliance to indep HEP and aquatic exercise progam LTG Duration 06/24/19 weakness Impairment Core and LE weakness STG Duration 6 weeks Taxi Proprietor Goal (LTG) Pt will have MMT of LE strength graded 4+/5 or greater LTG Duration 12 weeks Assessment Summary Assessment Patient has low tolerance for standing exercises and has difficulty with postural correction. Tends to overexert with no pain no gain attitude. Reported anterior left hip pain with standing ex; states this has been a problem for about 5 months. Physical Therapy Plan Frequency and Duration Frequency of Treatment 2x/Week Duration of Treatment 8 wks Plan of Care Start Date 05/23/19 Plan of Care End Date 06/24/19 Therapeutic Interventions Therapeutic Interventions Aquatic Therapy,Home Exercise Program,Manual Therapy, Neuromuscular Re-education, Patient/Caregiver Education, Self-Care/Home Management,Soft Tissue Mobilization,Taping, Therapeutic Activities, Therapeutic Exercises Modalities Cold Pack/Ice Massage,Electric Stimulation,Hot Packs, Ultrasound Next Visit Focus/Plan Next Note Type Treatment Note Next Visit Plan Emphasis on core stabilization and flexibility
--- NOTE | 2019-05-02 15:41 | PT.OTN ---
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 Previously having PT with best benefit from aquatic PT but had to discontinue due to medical issues. Underwent spinal decompression 2 years ago with no relief of pain. Has now had second opinion appointment and will be consulting further. Cortisone injection 4 wks ago helpful, has been trying to gradually increase his activity level to not overdo it. Not doing any exercises at home; stating I never sit down at home so am doing a lot of exercises. Found aquatic therapy helpful. Has a tendency to overdo. States he was told this am he has a problem with his liver, has no idea about plan for treatment. Pain is in lumbar spine and into LE's in past. Tingling both feet, reports tests for circulation show no problem. Some numbness bilateral feet. States no reflexes in LE's. Pain anterior left hip since helping a friend clean [employer] tub yesterday. Also had increase in pain a couple weeks ago with a day of extensive walking. Prior Treatments and Tests Cortisone injection 4 wks ago, no pain since shot, pain medicaitons, aquatic PT. Future Testing and Treatments Planned Sees orthopedist at [place] in 1 wk to discuss POC. Treatment Goals Patient/Caregiver Goals Strengthen his muscles and be able to resume prior functional level. Requests a couple more PT visits in the pool since he had to discontinue aquatic PT early. 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 He states that he did not do anything unusual or strenuous to cause the pain. Additionally, when pt was at [place] on Tuesday this week he was told that he should see a internet marketing executive for his increased breathlessness after ambulating 50 yds to his mailbox. PT-OP-J Posture/Palpation/Skin Start: 04/23/19 15:12 Freq: Status: Active Protocol: Document 04/23/19 15:13 SAK (Rec: 04/24/19 14:48 SAK [id number]) Posture Evaluation Position Standing Head/C-Spine Posture Forward Head T-Spine Posture Increased Kyphosis L-Spine Posture Increased Lordosis Shoulder Posture (L) Rounded,(R) Rounded,(L) Forward,(R) Forward Pelvis Posture Anteriorly Tilted Hip Posture (L) Externally Rotated,(R) Externally Rotated Palpation Assessment Location anterior left hip Palpation Findings Soft Tissue Tightness, Tenderness piriformis Palpation Findings Soft Tissue Tightness PT-OP-K Range of Motion Start: 04/23/19 15:12 Freq: Status: Active Protocol: Document 04/23/19 15:13 SAK (Rec: 04/24/19 14:48 SAK [id number]) Lumbar Spine Range of Motion Lumbar Spine Active Flexion 30 Extension 15 Lateral Flexion Left 30 Lateral Flexion Right 30 ROM Limitations Soft Tissue Tightness Hip Goniometric Range of Motion Hip Left Flexion w/Knee Flexed 100 Straight Leg Raise 55 Extension 0 Internal Rotation 20 External Rotation 40 Right Flexion w/Knee Flexed 100 Straight Leg Raise 50 Extension 0 Internal Rotation 20 External Rotation 45 Hip ROM Limitations Hip ROM Limitations Soft Tissue Tightness,Pain Knee Goniometric Range of Motion Knee Left Knee ROM WFL Yes Right Knee ROM WFL Yes Ankle and Foot Goniometric Range of Motion Ankle and Foot renato Dorsiflexion with Knee Flexed 5 Dorsiflexion with Knee Extended 0 Plantarflexion 40 PT-OP-M Strength Start: 04/23/19 15:12 Freq: Status: Active Protocol: Document 04/23/19 15:13 SAK (Rec: 04/24/19 14:48 SAK [id number]) Trunk Strength Trunk Manual Muscle Testing Flexion 4- Good- Extension 4- Good- Hip Strength Hip Manual Muscle Testing Left Flexion (L2) 4+ Good+ Extension (S1) 3- Fair- Abduction 3+ Fair+ External Rotation 4 Good Internal Rotation 4+ Good+ Right Flexion (L2) 4+ Good+ Extension (S1) 3- Fair- Abduction 4- Good- External Rotation 4- Good- Internal Rotation 4 Good Knee Strength Knee Manual Muscle Testing Left Flexion (S2) 4+ Good+ Extension (L3) 4+ Good+ Right Flexion (S2) 4+ Good+ Extension (L3) 4- Good- Ankle/Foot Strength Ankle and Foot Manual Muscle Testing Left Dorsiflexion (L4) 4- Good- Right Dorsiflexion (L4) 4+ Good+ Toe Strength Toe Manual Muscle Testing Left Great Toe Extension 4- Good- Right Great Toe Flexion 4 Good PT-OP-Q Treatments Start: 04/23/19 15:12 Freq: Status: Active Protocol: Document 05/02/19 14:30 LJ (Rec: 05/02/19 15:40 LJ [id number]) Cardio Equipment Recumbent Stepper (Sci-Fit) Duration (Minutes) 6 Resistance 2 Seat Position 17 Other emphasis on LE alignment Gym Equipment Sport Cord forward Exercise Details emphasis on core stab, gluteal activation Cord/Resistance green Reps/Duration 5 Comments c/o anterior left hip pain steps forward and back bilateral Therapeutic Exercises Supine Exercises hip flexor stretch Reps/Minutes 30x2 Comments side of mat table HS stretch Equipment Used strap and manual assist Reps/Minutes 30x2 piriformis Reps/Minutes 30x2 SKTC Reps/Minutes 30x2 Standing Exercises postural isometric Reps/Minutes 3x Comments wall shoulder extension Resistance L2 TB Reps/Minutes 10x5 row Resistance L2 TB Reps/Minutes 10x5 Gait Training Gait Activity // bar step to load LLE Description single step forward onto LLE then stabilize Surface level Treatment Focus hip stabilization; reduce Tberg gait level surface Comments mirror for visual feedback due to excess lateral shift and sway Self-Care/Home Management Treatment Education Patient Education Body Mechanics,Posture PT-OP-T Assessment and Plan Start: 04/23/19 15:12 Freq: Status: Active Protocol: Document 05/02/19 14:30 JAMIN (Rec: 05/02/19 15:40 JAMIN [id number]) Physical Therapy Assessment Rehab Potential Rehabilitation Potential Good Evaluation Complexity Number of Personal Factors/Comorbidities 3 or More Number of Body Systems Impaired 4 or More Clinical Presentation at Evaluation Evolving Impairments Impairments Activity Tolerance,Posture,ROM ,Strength Goals Recreational Activities 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 LTG Duration 06/24/19 Perceived Disability Impairment Modified Oswestry Score 36% High Raw Sugar Boiler Goal (LTG) Pt will grade overall perceived disability on the Modified Oswestry Questionnaire to 20% or less. LTG Duration 06/24/19 knowledge deficit Impairment Patient doesn't currently perform HEP Short Term Goal (STG) Instruct in HEP STG Duration 05/07/19 Assisted Goal (LTG) Pt will report good tolerance and compliance to indep HEP and aquatic exercise progam LTG Duration 06/24/19 weakness Impairment Core and LE weakness STG Duration 6 weeks Assisted Goal (LTG) Pt will have MMT of LE strength graded 4+/5 or greater LTG Duration 12 weeks Assessment Summary Assessment Pt able to recognize Trendelenberg gait in mirror and correct momentarily in SLS while in // bars. Several slight LOB while using sport cord while stepping forward and backward. Pt repeatedly yawning and stating he gets out of breath with activity. Physical Therapy Plan Frequency and Duration Frequency of Treatment 2x/Week Duration of Treatment 8 wks Plan of Care Start Date 05/23/19 Plan of Care End Date 06/24/19 Therapeutic Interventions Therapeutic Interventions Aquatic Therapy,Home Exercise Program,Manual Therapy, Neuromuscular Re-education, Patient/Caregiver Education, Self-Care/Home Management,Soft Tissue Mobilization,Taping, Therapeutic Activities, Therapeutic Exercises Modalities Cold Pack/Ice Massage,Electric Stimulation,Hot Packs, Ultrasound Next Visit Focus/Plan Next Note Type Treatment Note Next Visit Plan Focus on core stabilization and LE strength.
--- NOTE | 2019-05-04 15:26 | PT.OTN ---
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 Previously having PT with best benefit from aquatic PT but had to discontinue due to medical issues. Underwent spinal decompression 2 years ago with no relief of pain. Has now had second opinion appointment and will be consulting further. Cortisone injection 4 wks ago helpful, has been trying to gradually increase his activity level to not overdo it. Not doing any exercises at home; stating I never sit down at home so am doing a lot of exercises. Found aquatic therapy helpful. Has a tendency to overdo. States he was told this am he has a problem with his liver, has no idea about plan for treatment. Pain is in lumbar spine and into LE's in past. Tingling both feet, reports tests for circulation show no problem. Some numbness bilateral feet. States no reflexes in LE's. Pain anterior left hip since helping a friend clean [place] tub yesterday. Also had increase in pain a couple weeks ago with a day of extensive walking. Prior Treatments and Tests Cortisone injection 4 wks ago, no pain since shot, pain medicaitons, aquatic PT. Future Testing and Treatments Planned Sees orthopedist at [place] in 1 wk to discuss POC. Treatment Goals Patient/Caregiver Goals Strengthen his muscles and be able to resume prior functional level. Requests a couple more PT visits in the pool since he had to discontinue aquatic PT early. 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 States he hasn't been able to stretch his LLE enough to cause it to hurt. No pain, no gain. PT-OP-J Posture/Palpation/Skin Start: 04/23/19 15:12 Freq: Status: Active Protocol: Document 04/23/19 15:13 SAK (Rec: 04/24/19 14:48 SAK [id number]) Posture Evaluation Position Standing Head/C-Spine Posture Forward Head T-Spine Posture Increased Kyphosis L-Spine Posture Increased Lordosis Shoulder Posture (L) Rounded,(R) Rounded,(L) Forward,(R) Forward Pelvis Posture Anteriorly Tilted Hip Posture (L) Externally Rotated,(R) Externally Rotated Palpation Assessment Location anterior left hip Palpation Findings Soft Tissue Tightness, Tenderness piriformis Palpation Findings Soft Tissue Tightness PT-OP-K Range of Motion Start: 04/23/19 15:12 Freq: Status: Active Protocol: Document 04/23/19 15:13 SAK (Rec: 04/24/19 14:48 SAK [id number]) Lumbar Spine Range of Motion Lumbar Spine Active Flexion 30 Extension 15 Lateral Flexion Left 30 Lateral Flexion Right 30 ROM Limitations Soft Tissue Tightness Hip Goniometric Range of Motion Hip Left Flexion w/Knee Flexed 100 Straight Leg Raise 55 Extension 0 Internal Rotation 20 External Rotation 40 Right Flexion w/Knee Flexed 100 Straight Leg Raise 50 Extension 0 Internal Rotation 20 External Rotation 45 Hip ROM Limitations Hip ROM Limitations Soft Tissue Tightness,Pain Knee Goniometric Range of Motion Knee Left Knee ROM WFL Yes Right Knee ROM WFL Yes Ankle and Foot Goniometric Range of Motion Ankle and Foot renato Dorsiflexion with Knee Flexed 5 Dorsiflexion with Knee Extended 0 Plantarflexion 40 PT-OP-M Strength Start: 04/23/19 15:12 Freq: Status: Active Protocol: Document 04/23/19 15:13 SAK (Rec: 04/24/19 14:48 SAK [id number]) Trunk Strength Trunk Manual Muscle Testing Flexion 4- Good- Extension 4- Good- Hip Strength Hip Manual Muscle Testing Left Flexion (L2) 4+ Good+ Extension (S1) 3- Fair- Abduction 3+ Fair+ External Rotation 4 Good Internal Rotation 4+ Good+ Right Flexion (L2) 4+ Good+ Extension (S1) 3- Fair- Abduction 4- Good- External Rotation 4- Good- Internal Rotation 4 Good Knee Strength Knee Manual Muscle Testing Left Flexion (S2) 4+ Good+ Extension (L3) 4+ Good+ Right Flexion (S2) 4+ Good+ Extension (L3) 4- Good- Ankle/Foot Strength Ankle and Foot Manual Muscle Testing Left Dorsiflexion (L4) 4- Good- Right Dorsiflexion (L4) 4+ Good+ Toe Strength Toe Manual Muscle Testing Left Great Toe Extension 4- Good- Right Great Toe Flexion 4 Good PT-OP-Q Treatments Start: 04/23/19 15:12 Freq: Status: Active Protocol: Document 05/02/19 14:30 LJ (Rec: 05/02/19 15:40 LJ [id number]) Cardio Equipment Recumbent Stepper (Sci-Fit) Duration (Minutes) 6 Resistance 2 Seat Position 17 Other emphasis on LE alignment Gym Equipment Sport Cord forward Exercise Details emphasis on core stab, gluteal activation Cord/Resistance green Reps/Duration 5 Comments c/o anterior left hip pain steps forward and back bilateral Therapeutic Exercises Supine Exercises hip flexor stretch Reps/Minutes 30x2 Comments side of mat table HS stretch Equipment Used strap and manual assist Reps/Minutes 30x2 piriformis Reps/Minutes 30x2 SKTC Reps/Minutes 30x2 Standing Exercises postural isometric Reps/Minutes 3x Comments wall shoulder extension Resistance L2 TB Reps/Minutes 10x5 row Resistance L2 TB Reps/Minutes 10x5 Gait Training Gait Activity // bar step to load LLE Description single step forward onto LLE then stabilize Surface level Treatment Focus hip stabilization; reduce Tberg gait level surface Comments mirror for visual feedback due to excess lateral shift and sway Self-Care/Home Management Treatment Education Patient Education Body Mechanics,Posture PT-OP-S Aquatic Treatment Start: 04/23/19 15:12 Freq: Status: Active Protocol: Document 05/04/19 11:45 LJ (Rec: 05/04/19 15:26 LJ [id number]) Aquatics Treatment Pool Entry/Exit Pool Entry/Exit Method Stairs Assistance Independent Water Walking quick reverses fwd/bck Water Level Chest Level Walking Equipment Resistance Fins Level of Assistance Verbal Cues lunge walking Water Level Chest Level september, straight leg september Water Level Chest Level Walking Equipment Ankle Weight- 5.0# Level of Assistance Verbal Cues Comments 2 laps fwd,bck,side Water Level Chest Level Walking Equipment Ankle Weight- 5.0# Level of Assistance Verbal Cues Lower Extremity Exercises figure 8's Body Position Standing Comments with hip/knee flexed at 90/90, leading with knee HS curls Details standing at wall w/min hand support Body Position Standing Water Level Chest Level Equipment Ankle Weight- 5.0# Reps/Duration 2x10 bilat Comments cues for no hip flexion and erect posture HS curls and kickbacks Details standing at wall w/min hand support Body Position Standing Water Level Chest Level Equipment Ankle Weight- 5.0# Reps/Duration 2x10 bilat Comments cues for no hip flexion and erect posture CC,CCW Details standing at wall w/min hand support Body Position Standing Water Level Chest Level Equipment Ankle Weight- 5.0# Reps/Duration 2x 10 bilat Comments cues for core stab squats Water Level Waist Level Equipment #15 ball Reps/Duration 20x Comments turning and lifting ball onto deck hip flex/ext, ab/ad Details standing at wall w/min hand support Body Position Standing Water Level Chest Level Equipment large resistance fins Reps/Duration 2x10 bilat Lower Extremity Stretches lateral trunk and ITb stretch Body Position Standing Water Level Chest Level Reps/Duration 2 min static hold Comments holding wall piriformis, hip ER Comments 2x 30 sec bilat hamstring, ITB, add Details at wall Body Position Standing Water Level Chest Level Equipment hydrofit cuffs and 1 lg noodle Reps/Duration [id number] hold [place] Activities [place] Activities Bicycle Duration 4 min Comments post Bad Ragaz, pre-deep water traction Manual Techniques Bad Ragaz For lateral trunk and hip mobility. 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 LTG Duration 06/24/19 Perceived Disability Impairment Modified Oswestry Score 36% Drawer Liner Goal (LTG) Pt will grade overall perceived disability on the Modified Oswestry Questionnaire to 20% or less. LTG Duration 06/24/19 knowledge deficit Impairment Patient doesn't currently perform HEP Short Term Goal (STG) Instruct in HEP STG Duration 05/07/19 Usp Goal (LTG) Pt will report good tolerance and compliance to indep HEP and aquatic exercise progam LTG Duration 06/24/19 weakness Impairment Core and LE weakness STG Duration 6 weeks Drawer Liner Goal (LTG) Pt will have MMT of LE strength graded 4+/5 or greater LTG Duration 12 weeks Assessment Summary Assessment Pt responded to Bad Ragaz with increased trunk mobility. Left side still tighter than right but there was significant movement post session. Physical Therapy Plan Frequency and Duration Frequency of Treatment 2x/Week Duration of Treatment 8 wks Plan of Care Start Date 05/23/19 Plan of Care End Date 06/24/19 Therapeutic Interventions Therapeutic Interventions Aquatic Therapy,Home Exercise Program,Manual Therapy, Neuromuscular Re-education, Patient/Caregiver Education, Self-Care/Home Management,Soft Tissue Mobilization,Taping, Therapeutic Activities, Therapeutic Exercises Modalities Cold Pack/Ice Massage,Electric Stimulation,Hot Packs, Ultrasound Next Visit Focus/Plan Next Note Type Treatment Note Next Visit Plan Continue with LE strengthening and core stabilization. Assess effectiveness of Bad Ragaz
--- NOTE | 2019-05-07 15:43 | PT.OTN ---
Current Diagnoses Low back pain (05/07/19) Physical Therapy Treatment Note PT-OP-A Visit Information Start: 04/23/19 15:12 Freq: Status: Active Protocol: Document 05/07/19 14:30 JAMIN (Rec: 05/07/19 15:22 LJ [id number]) Out-Patient Physical Therapy Visit Information Visit Information Visit Type Treatment Note Visit Start Time 14:30 Visit Stop Time 15:17 Total Visit Minutes 47 Visit Number 5 Number of APPRENTICE Visits 3 Evaluation Information Evaluation Date 04/23/19 Precautions Precautions cardiac, colon surgery, newly diagnosed liver dysfunction PT-OP-B Current Condition Start: 04/23/19 15:12 Freq: Status: Active Protocol: Document 04/23/19 15:13 SAK (Rec: 04/23/19 16:05 SAK [id number]) Current Condition History of Current Condition Onset Date 2 yrs Current Complaints LBP History of Current Condition Reports persistent, function- limiting LBP with residual weakness in LE's. Previously having PT with best benefit from aquatic PT but had to discontinue due to medical issues. Underwent spinal decompression 2 years ago with no relief of pain. Has now had second opinion appointment and will be consulting further. Cortisone injection 4 wks ago helpful, has been trying to gradually increase his activity level to not overdo it. Not doing any exercises at home; stating I never sit down at home so am doing a lot of exercises. Found aquatic therapy helpful. Has a tendency to overdo. States he was told this am he has a problem with his liver, has no idea about plan for treatment. Pain is in lumbar spine and into LE's in past. Tingling both feet, reports tests for circulation show no problem. Some numbness bilateral feet. States no reflexes in LE's. Pain anterior left hip since helping a friend clean [employer] tub yesterday. Also had increase in pain a couple weeks ago with a day of extensive walking. Prior Treatments and Tests Cortisone injection 4 wks ago, no pain since shot, pain medicaitons, aquatic PT. Future Testing and Treatments Planned Sees orthopedist at [place] in 1 wk to discuss POC. Treatment Goals Patient/Caregiver Goals Strengthen his muscles and be able to resume prior functional level. Requests a couple more PT visits in the pool since he had to discontinue aquatic PT early. 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 Now c/o foot p[ain occasionally when walking. It comes and goes. PT-OP-J Posture/Palpation/Skin Start: 04/23/19 15:12 Freq: Status: Active Protocol: Document 04/23/19 15:13 SAK (Rec: 04/24/19 14:48 SAK [id number]) Posture Evaluation Position Standing Head/C-Spine Posture Forward Head T-Spine Posture Increased Kyphosis L-Spine Posture Increased Lordosis Shoulder Posture (L) Rounded,(R) Rounded,(L) Forward,(R) Forward Pelvis Posture Anteriorly Tilted Hip Posture (L) Externally Rotated,(R) Externally Rotated Palpation Assessment Location anterior left hip Palpation Findings Soft Tissue Tightness, Tenderness piriformis Palpation Findings Soft Tissue Tightness PT-OP-K Range of Motion Start: 04/23/19 15:12 Freq: Status: Active Protocol: Document 04/23/19 15:13 SAK (Rec: 04/24/19 14:48 SAK [id number]) Lumbar Spine Range of Motion Lumbar Spine Active Flexion 30 Extension 15 Lateral Flexion Left 30 Lateral Flexion Right 30 ROM Limitations Soft Tissue Tightness Hip Goniometric Range of Motion Hip Left Flexion w/Knee Flexed 100 Straight Leg Raise 55 Extension 0 Internal Rotation 20 External Rotation 40 Right Flexion w/Knee Flexed 100 Straight Leg Raise 50 Extension 0 Internal Rotation 20 External Rotation 45 Hip ROM Limitations Hip ROM Limitations Soft Tissue Tightness,Pain Knee Goniometric Range of Motion Knee Left Knee ROM WFL Yes Right Knee ROM WFL Yes Ankle and Foot Goniometric Range of Motion Ankle and Foot renato Dorsiflexion with Knee Flexed 5 Dorsiflexion with Knee Extended 0 Plantarflexion 40 PT-OP-M Strength Start: 04/23/19 15:12 Freq: Status: Active Protocol: Document 04/23/19 15:13 SAK (Rec: 04/24/19 14:48 SAK [id number]) Trunk Strength Trunk Manual Muscle Testing Flexion 4- Good- Extension 4- Good- Hip Strength Hip Manual Muscle Testing Left Flexion (L2) 4+ Good+ Extension (S1) 3- Fair- Abduction 3+ Fair+ External Rotation 4 Good Internal Rotation 4+ Good+ Right Flexion (L2) 4+ Good+ Extension (S1) 3- Fair- Abduction 4- Good- External Rotation 4- Good- Internal Rotation 4 Good Knee Strength Knee Manual Muscle Testing Left Flexion (S2) 4+ Good+ Extension (L3) 4+ Good+ Right Flexion (S2) 4+ Good+ Extension (L3) 4- Good- Ankle/Foot Strength Ankle and Foot Manual Muscle Testing Left Dorsiflexion (L4) 4- Good- Right Dorsiflexion (L4) 4+ Good+ Toe Strength Toe Manual Muscle Testing Left Great Toe Extension 4- Good- Right Great Toe Flexion 4 Good PT-OP-Q Treatments Start: 04/23/19 15:12 Freq: Status: Active Protocol: Document 05/07/19 15:25 LJ (Rec: 05/07/19 15:43 LJ [id number]) Cardio Equipment Recumbent Stepper (Sci-Fit) Duration (Minutes) 8 Resistance 4 Seat Position 16 Other emphasis on LE alignment Gym Equipment Shuttle Balance 8 min Details WBOS, staggard, sideways Reps/Duration 8 min Comments red Therapeutic Exercises Supine Exercises hip flexor stretch Reps/Minutes 30x2 Comments side of mat table piriformis Side bilateral Reps/Minutes 30x2 SKTC Side bilateral Reps/Minutes 30x2 Standing Exercises postural opposite UE-LE extension Reps/Minutes 10x postural isometric Reps/Minutes 5x Comments wall Gait Training Gait Activity side walking Device Used t-band yellow Surface level Distance/Duration 10x3 Comments constant handhold on rail cues for posture level surface Distance/Duration 8 min Treatment Focus assessment of left hip stability Comments mirror for visual feedback due to excess lateral shift and sway Manual Therapy Treatment Soft Tissue Mobilization ITB Body Location LLE ITB Mobilization Type Cross-Friction,Myofascial Release Body Position Sidelying Comments pt in stretch position lying on right side w/LLE in PT-OP-S Aquatic Treatment Start: 04/23/19 15:12 Freq: Status: Active Protocol: Document 05/04/19 11:45 LJ (Rec: 05/04/19 15:26 LJ [id number]) Aquatics Treatment Pool Entry/Exit Pool Entry/Exit Method Stairs Assistance Independent Water Walking quick reverses fwd/bck Water Level Chest Level Walking Equipment Resistance Fins Level of Assistance Verbal Cues lunge walking Water Level Chest Level september, straight leg september Water Level Chest Level Walking Equipment Ankle Weight- 5.0# Level of Assistance Verbal Cues Comments 2 laps fwd,bck,side Water Level Chest Level Walking Equipment Ankle Weight- 5.0# Level of Assistance Verbal Cues Lower Extremity Exercises figure 8's Body Position Standing Comments with hip/knee flexed at 90/90, leading with knee HS curls Details standing at wall w/min hand support Body Position Standing Water Level Chest Level Equipment Ankle Weight- 5.0# Reps/Duration 2x10 bilat Comments cues for no hip flexion and erect posture HS curls and kickbacks Details standing at wall w/min hand support Body Position Standing Water Level Chest Level Equipment Ankle Weight- 5.0# Reps/Duration 2x10 bilat Comments cues for no hip flexion and erect posture CC,CCW Details standing at wall w/min hand support Body Position Standing Water Level Chest Level Equipment Ankle Weight- 5.0# Reps/Duration 2x 10 bilat Comments cues for core stab squats Water Level Waist Level Equipment #15 ball Reps/Duration 20x Comments turning and lifting ball onto deck hip flex/ext, ab/ad Details standing at wall w/min hand support Body Position Standing Water Level Chest Level Equipment large resistance fins Reps/Duration 2x10 bilat Lower Extremity Stretches lateral trunk and ITb stretch Body Position Standing Water Level Chest Level Reps/Duration 2 min static hold Comments holding wall piriformis, hip ER Comments 2x 30 sec bilat hamstring, ITB, add Details at wall Body Position Standing Water Level Chest Level Equipment hydrofit cuffs and 1 lg noodle Reps/Duration [id number] hold [place] Activities [place] Activities Bicycle Duration 4 min Comments post Bad Ragaz, pre-deep water traction Manual Techniques Bad Ragaz For lateral trunk and hip mobility. 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 LTG Duration 06/24/19 Perceived Disability Impairment Modified Oswestry Score 36% Shelter Goal (LTG) Pt will grade overall perceived disability on the Modified Oswestry Questionnaire to 20% or less. LTG Duration 06/24/19 knowledge deficit Impairment Patient doesn't currently perform HEP Short Term Goal (STG) Instruct in HEP STG Duration 05/07/19 Gallery Intern Goal (LTG) Pt will report good tolerance and compliance to indep HEP and aquatic exercise progam LTG Duration 06/24/19 weakness Impairment Core and LE weakness STG Duration 6 weeks Gallery Intern Goal (LTG) Pt will have MMT of LE strength graded 4+/5 or greater LTG Duration 12 weeks Assessment Summary Assessment Pt improved slightly with gait with visual feedback. Still showing weakness in LLE. Pt compensates with upper body lateral lean and left shoulder hike during ambulation. Pt refused changing balance board to easier level but was unable to perform balance activities w/ o hand hold. Physical Therapy Plan Frequency and Duration Frequency of Treatment 2x/Week Duration of Treatment 8 wks Plan of Care Start Date 05/23/19 Plan of Care End Date 06/24/19 Therapeutic Interventions Therapeutic Interventions Aquatic Therapy,Home Exercise Program,Manual Therapy, Neuromuscular Re-education, Patient/Caregiver Education, Self-Care/Home Management,Soft Tissue Mobilization,Taping, Therapeutic Activities, Therapeutic Exercises Modalities Cold Pack/Ice Massage,Electric Stimulation,Hot Packs, Ultrasound Next Visit Focus/Plan Next Note Type Treatment Note Next Visit Plan Continue with core and strength training. Incorporate balance activities for safer ambulation .
--- NOTE | 2019-05-10 17:11 | PT.OTN ---
Current Diagnoses Low back pain (05/10/19) Physical Therapy Treatment Note PT-OP-A Visit Information Start: 04/23/19 15:12 Freq: Status: Active Protocol: Document 05/10/19 16:47 NFW (Rec: 05/10/19 17:11 NFW [id number]) Out-Patient Physical Therapy Visit Information Visit Information Visit Type Treatment Note Visit Start Time 14:40 Visit Stop Time 15:25 Total Visit Minutes 45 Visit Number 6 PT-OP-B Current Condition Start: 04/23/19 15:12 Freq: Status: Active Protocol: Document 04/23/19 15:13 SAK (Rec: 04/23/19 16:05 SAK [id number]) Current Condition History of Current Condition Onset Date 2 yrs Current Complaints LBP History of Current Condition Reports persistent, function- limiting LBP with residual weakness in LE's. Previously having PT with best benefit from aquatic PT but had to discontinue due to medical issues. Underwent spinal decompression 2 years ago with no relief of pain. Has now had second opinion appointment and will be consulting further. Cortisone injection 4 wks ago helpful, has been trying to gradually increase his activity level to not overdo it. Not doing any exercises at home; stating I never sit down at home so am doing a lot of exercises. Found aquatic therapy helpful. Has a tendency to overdo. States he was told this am he has a problem with his liver, has no idea about plan for treatment. Pain is in lumbar spine and into LE's in past. Tingling both feet, reports tests for circulation show no problem. Some numbness bilateral feet. States no reflexes in LE's. Pain anterior left hip since helping a friend clean [employer] tub yesterday. Also had increase in pain a couple weeks ago with a day of extensive walking. Prior Treatments and Tests Cortisone injection 4 wks ago, no pain since shot, pain medicaitons, aquatic PT. Future Testing and Treatments Planned Sees orthopedist at [place] in 1 wk to discuss POC. Treatment Goals Patient/Caregiver Goals Strengthen his muscles and be able to resume prior functional level. Requests a couple more PT visits in the pool since he had to discontinue aquatic PT early. 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 Stating pain in right knee and states recommendation of TKA once he loses 30 lbs. PT-OP-J Posture/Palpation/Skin Start: 04/23/19 15:12 Freq: Status: Active Protocol: Document 04/23/19 15:13 SAK (Rec: 04/24/19 14:48 SAK [id number]) Posture Evaluation Position Standing Head/C-Spine Posture Forward Head T-Spine Posture Increased Kyphosis L-Spine Posture Increased Lordosis Shoulder Posture (L) Rounded,(R) Rounded,(L) Forward,(R) Forward Pelvis Posture Anteriorly Tilted Hip Posture (L) Externally Rotated,(R) Externally Rotated Palpation Assessment Location anterior left hip Palpation Findings Soft Tissue Tightness, Tenderness piriformis Palpation Findings Soft Tissue Tightness PT-OP-K Range of Motion Start: 04/23/19 15:12 Freq: Status: Active Protocol: Document 04/23/19 15:13 SAK (Rec: 04/24/19 14:48 SAK [id number]) Lumbar Spine Range of Motion Lumbar Spine Active Flexion 30 Extension 15 Lateral Flexion Left 30 Lateral Flexion Right 30 ROM Limitations Soft Tissue Tightness Hip Goniometric Range of Motion Hip Left Flexion w/Knee Flexed 100 Straight Leg Raise 55 Extension 0 Internal Rotation 20 External Rotation 40 Right Flexion w/Knee Flexed 100 Straight Leg Raise 50 Extension 0 Internal Rotation 20 External Rotation 45 Hip ROM Limitations Hip ROM Limitations Soft Tissue Tightness,Pain Knee Goniometric Range of Motion Knee Left Knee ROM WFL Yes Right Knee ROM WFL Yes Ankle and Foot Goniometric Range of Motion Ankle and Foot renato Dorsiflexion with Knee Flexed 5 Dorsiflexion with Knee Extended 0 Plantarflexion 40 PT-OP-M Strength Start: 04/23/19 15:12 Freq: Status: Active Protocol: Document 04/23/19 15:13 SAK (Rec: 04/24/19 14:48 SAK [id number]) Trunk Strength Trunk Manual Muscle Testing Flexion 4- Good- Extension 4- Good- Hip Strength Hip Manual Muscle Testing Left Flexion (L2) 4+ Good+ Extension (S1) 3- Fair- Abduction 3+ Fair+ External Rotation 4 Good Internal Rotation 4+ Good+ Right Flexion (L2) 4+ Good+ Extension (S1) 3- Fair- Abduction 4- Good- External Rotation 4- Good- Internal Rotation 4 Good Knee Strength Knee Manual Muscle Testing Left Flexion (S2) 4+ Good+ Extension (L3) 4+ Good+ Right Flexion (S2) 4+ Good+ Extension (L3) 4- Good- Ankle/Foot Strength Ankle and Foot Manual Muscle Testing Left Dorsiflexion (L4) 4- Good- Right Dorsiflexion (L4) 4+ Good+ Toe Strength Toe Manual Muscle Testing Left Great Toe Extension 4- Good- Right Great Toe Flexion 4 Good PT-OP-Q Treatments Start: 04/23/19 15:12 Freq: Status: Active Protocol: Document 05/10/19 16:47 NFW (Rec: 05/10/19 17:11 NFW [id number]) Cardio Equipment Recumbent Elliptical (Biodex) Duration (Minutes) 8 Resistance 8 Treadmill Duration (Minutes) 8 Speed 2 mph Incline 0 Other Cuing for increase dorsiflexion left at swing Gym Equipment Shuttle Balance 8 min Details WBOS, staggard, sideways Reps/Duration 8 min Comments red Therapeutic Exercises Supine Exercises 1 Supine Exercise Name Terminal Knee Extension Side bilateral Resistance 5 lbs Reps/Minutes 10 Reps, 10 sec holds Comments notable difficulty on right hip flexor stretch Reps/Minutes 30x2 Comments side of mat table Standing Exercises 1 Standing Exercise Name Calf Stretch Side bilateral Reps/Minutes 20 x 2 Gait Training Gait Activity level surface Distance/Duration 5 Comments Abducted UE in ambulation. After gait training on tmill able to narrow base of support to normal range. Decrease lateral shift. PT-OP-S Aquatic Treatment Start: 04/23/19 15:12 Freq: Status: Active Protocol: Document 05/04/19 11:45 LJ (Rec: 05/04/19 15:26 LJ [id number]) Aquatics Treatment Pool Entry/Exit Pool Entry/Exit Method Stairs Assistance Independent Water Walking quick reverses fwd/bck Water Level Chest Level Walking Equipment Resistance Fins Level of Assistance Verbal Cues lunge walking Water Level Chest Level september, straight leg september Water Level Chest Level Walking Equipment Ankle Weight- 5.0# Level of Assistance Verbal Cues Comments 2 laps fwd,bck,side Water Level Chest Level Walking Equipment Ankle Weight- 5.0# Level of Assistance Verbal Cues Lower Extremity Exercises figure 8's Body Position Standing Comments with hip/knee flexed at 90/90, leading with knee HS curls Details standing at wall w/min hand support Body Position Standing Water Level Chest Level Equipment Ankle Weight- 5.0# Reps/Duration 2x10 bilat Comments cues for no hip flexion and erect posture HS curls and kickbacks Details standing at wall w/min hand support Body Position Standing Water Level Chest Level Equipment Ankle Weight- 5.0# Reps/Duration 2x10 bilat Comments cues for no hip flexion and erect posture CC,CCW Details standing at wall w/min hand support Body Position Standing Water Level Chest Level Equipment Ankle Weight- 5.0# Reps/Duration 2x 10 bilat Comments cues for core stab squats Water Level Waist Level Equipment #15 ball Reps/Duration 20x Comments turning and lifting ball onto deck hip flex/ext, ab/ad Details standing at wall w/min hand support Body Position Standing Water Level Chest Level Equipment large resistance fins Reps/Duration 2x10 bilat Lower Extremity Stretches lateral trunk and ITb stretch Body Position Standing Water Level Chest Level Reps/Duration 2 min static hold Comments holding wall piriformis, hip ER Comments 2x 30 sec bilat hamstring, ITB, add Details at wall Body Position Standing Water Level Chest Level Equipment hydrofit cuffs and 1 lg noodle Reps/Duration [id number] hold [place] Activities [place] Activities Bicycle Duration 4 min Comments post Bad Ragaz, pre-deep water traction Manual Techniques Bad Ragaz For lateral trunk and hip mobility. small black neck float and leg floats PT-OP-T Assessment and Plan Start: 04/23/19 15:12 Freq: Status: Active Protocol: Document 05/10/19 16:47 NFW (Rec: 05/10/19 17:11 NFW [id number]) Physical Therapy Assessment Rehab Potential Rehabilitation Potential Good Assessment Summary Assessment Improvement with decrease pain in left hip and LB. Concerns with pain into right knee. In ambulation drags left toe, able to consciously correct 70 % of the time. Moves spontaneously, discussion proper body mechanics with transitional activities to protect LB and hip.
--- NOTE | 2019-05-14 15:37 | PT.OTN ---
Current Diagnoses Low back pain (05/14/19) Physical Therapy Treatment Note PT-OP-A Visit Information Start: 04/23/19 15:12 Freq: Status: Active Protocol: Document 05/14/19 14:30 LJ (Rec: 05/14/19 15:37 LJ [id number]) Out-Patient Physical Therapy Visit Information Visit Information Visit Type Treatment Note Visit Start Time 14:30 Visit Stop Time 15:16 Total Visit Minutes 46 Visit Number 7 Number of HEALTH PROGRAM SPECIALIST Visits 1 PT-OP-B Current Condition Start: 04/23/19 15:12 Freq: Status: Active Protocol: Document 04/23/19 15:13 SAK (Rec: 04/23/19 16:05 SAK [id number]) Current Condition History of Current Condition Onset Date 2 yrs Current Complaints LBP History of Current Condition Reports persistent, function- limiting LBP with residual weakness in LE's. Previously having PT with best benefit from aquatic PT but had to discontinue due to medical issues. Underwent spinal decompression 2 years ago with no relief of pain. Has now had second opinion appointment and will be consulting further. Cortisone injection 4 wks ago helpful, has been trying to gradually increase his activity level to not overdo it. Not doing any exercises at home; stating I never sit down at home so am doing a lot of exercises. Found aquatic therapy helpful. Has a tendency to overdo. States he was told this am he has a problem with his liver, has no idea about plan for treatment. Pain is in lumbar spine and into LE's in past. Tingling both feet, reports tests for circulation show no problem. Some numbness bilateral feet. States no reflexes in LE's. Pain anterior left hip since helping a friend clean [employer] tub yesterday. Also had increase in pain a couple weeks ago with a day of extensive walking. Prior Treatments and Tests Cortisone injection 4 wks ago, no pain since shot, pain medicaitons, aquatic PT. Future Testing and Treatments Planned Sees orthopedist at [place] in 1 wk to discuss POC. Treatment Goals Patient/Caregiver Goals Strengthen his muscles and be able to resume prior functional level. Requests a couple more PT visits in the pool since he had to discontinue aquatic PT early. 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 Has not been compliant with HEP. Says daily life is his HEP. PT-OP-J Posture/Palpation/Skin Start: 04/23/19 15:12 Freq: Status: Active Protocol: Document 04/23/19 15:13 SAK (Rec: 04/24/19 14:48 SAK [id number]) Posture Evaluation Position Standing Head/C-Spine Posture Forward Head T-Spine Posture Increased Kyphosis L-Spine Posture Increased Lordosis Shoulder Posture (L) Rounded,(R) Rounded,(L) Forward,(R) Forward Pelvis Posture Anteriorly Tilted Hip Posture (L) Externally Rotated,(R) Externally Rotated Palpation Assessment Location anterior left hip Palpation Findings Soft Tissue Tightness, Tenderness piriformis Palpation Findings Soft Tissue Tightness PT-OP-K Range of Motion Start: 04/23/19 15:12 Freq: Status: Active Protocol: Document 04/23/19 15:13 SAK (Rec: 04/24/19 14:48 SAK [id number]) Lumbar Spine Range of Motion Lumbar Spine Active Flexion 30 Extension 15 Lateral Flexion Left 30 Lateral Flexion Right 30 ROM Limitations Soft Tissue Tightness Hip Goniometric Range of Motion Hip Left Flexion w/Knee Flexed 100 Straight Leg Raise 55 Extension 0 Internal Rotation 20 External Rotation 40 Right Flexion w/Knee Flexed 100 Straight Leg Raise 50 Extension 0 Internal Rotation 20 External Rotation 45 Hip ROM Limitations Hip ROM Limitations Soft Tissue Tightness,Pain Knee Goniometric Range of Motion Knee Left Knee ROM WFL Yes Right Knee ROM WFL Yes Ankle and Foot Goniometric Range of Motion Ankle and Foot renato Dorsiflexion with Knee Flexed 5 Dorsiflexion with Knee Extended 0 Plantarflexion 40 PT-OP-M Strength Start: 04/23/19 15:12 Freq: Status: Active Protocol: Document 04/23/19 15:13 SAK (Rec: 04/24/19 14:48 SAK [id number]) Trunk Strength Trunk Manual Muscle Testing Flexion 4- Good- Extension 4- Good- Hip Strength Hip Manual Muscle Testing Left Flexion (L2) 4+ Good+ Extension (S1) 3- Fair- Abduction 3+ Fair+ External Rotation 4 Good Internal Rotation 4+ Good+ Right Flexion (L2) 4+ Good+ Extension (S1) 3- Fair- Abduction 4- Good- External Rotation 4- Good- Internal Rotation 4 Good Knee Strength Knee Manual Muscle Testing Left Flexion (S2) 4+ Good+ Extension (L3) 4+ Good+ Right Flexion (S2) 4+ Good+ Extension (L3) 4- Good- Ankle/Foot Strength Ankle and Foot Manual Muscle Testing Left Dorsiflexion (L4) 4- Good- Right Dorsiflexion (L4) 4+ Good+ Toe Strength Toe Manual Muscle Testing Left Great Toe Extension 4- Good- Right Great Toe Flexion 4 Good PT-OP-Q Treatments Start: 04/23/19 15:12 Freq: Status: Active Protocol: Document 05/14/19 14:30 LJ (Rec: 05/14/19 15:37 LJ [id number]) Cardio Equipment Recumbent Stepper (Sci-Fit) Duration (Minutes) 8 Resistance 4 Seat Position 16 Other emphasis on LE alignment Gym Equipment Shuttle Balance 8 min Details WBOS, staggard, sideways Reps/Duration 8 min Comments red Therapeutic Exercises Supine Exercises 1 Supine Exercise Name Terminal Knee Extension Side bilateral Resistance 5 lbs Reps/Minutes 10 Reps, 10 sec holds Comments notable difficulty on right hip flexor stretch Reps/Minutes 30x2 Comments side of mat table Sidelying Exercises ITB stretch Side left Reps/Minutes 4 min Comments manual pressure point release with flex/ext Gait Training Gait Activity uneven surface gait in // bars Description stepping on pods and over hurdles Distance/Duration 10'x8 reps Treatment Focus balance Comments obstacle avoidance and tandem walking side walking Device Used t-band yellow Surface level Distance/Duration 10x3 Comments constant handhold on rail cues for posture Manual Therapy Treatment Soft Tissue Mobilization ITB Body Location LLE ITB Mobilization Type Cross-Friction,Myofascial Release Body Position Sidelying Comments pt in stretch position lying on right side w/LLE in extension PT-OP-S Aquatic Treatment Start: 04/23/19 15:12 Freq: Status: Active Protocol: Document 05/04/19 11:45 LJ (Rec: 05/04/19 15:26 LJ [id number]) Aquatics Treatment Pool Entry/Exit Pool Entry/Exit Method Stairs Assistance Independent Water Walking quick reverses fwd/bck Water Level Chest Level Walking Equipment Resistance Fins Level of Assistance Verbal Cues lunge walking Water Level Chest Level march, straight leg september Water Level Chest Level Walking Equipment Ankle Weight- 5.0# Level of Assistance Verbal Cues Comments 2 laps fwd,bck,side Water Level Chest Level Walking Equipment Ankle Weight- 5.0# Level of Assistance Verbal Cues Lower Extremity Exercises figure 8's Body Position Standing Comments with hip/knee flexed at 90/90, leading with knee HS curls Details standing at wall w/min hand support Body Position Standing Water Level Chest Level Equipment Ankle Weight- 5.0# Reps/Duration 2x10 bilat Comments cues for no hip flexion and erect posture HS curls and kickbacks Details standing at wall w/min hand support Body Position Standing Water Level Chest Level Equipment Ankle Weight- 5.0# Reps/Duration 2x10 bilat Comments cues for no hip flexion and erect posture CC,CCW Details standing at wall w/min hand support Body Position Standing Water Level Chest Level Equipment Ankle Weight- 5.0# Reps/Duration 2x 10 bilat Comments cues for core stab squats Water Level Waist Level Equipment #15 ball Reps/Duration 20x Comments turning and lifting ball onto deck hip flex/ext, ab/ad Details standing at wall w/min hand support Body Position Standing Water Level Chest Level Equipment large resistance fins Reps/Duration 2x10 bilat Lower Extremity Stretches lateral trunk and ITb stretch Body Position Standing Water Level Chest Level Reps/Duration 2 min static hold Comments holding wall piriformis, hip ER Comments 2x 30 sec bilat hamstring, ITB, add Details at wall Body Position Standing Water Level Chest Level Equipment hydrofit cuffs and 1 lg noodle Reps/Duration [id number] hold [place] Activities [place] Activities Bicycle Duration 4 min Comments post Bad Ragaz, pre-deep water traction Manual Techniques Bad Ragaz For lateral trunk and hip mobility. 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 LTG Duration 06/24/19 Perceived Disability Impairment Modified Oswestry Score 36% Ore Buyer Goal (LTG) Pt will grade overall perceived disability on the Modified Oswestry Questionnaire to 20% or less. LTG Duration 06/24/19 knowledge deficit Impairment Patient doesn't currently perform HEP Short Term Goal (STG) Instruct in HEP STG Duration 05/07/19 Shelter Goal (LTG) Pt will report good tolerance and compliance to indep HEP and aquatic exercise progam LTG Duration 06/24/19 weakness Impairment Core and LE weakness STG Duration 6 weeks Ore Buyer Goal (LTG) Pt will have MMT of LE strength graded 4+/5 or greater LTG Duration 12 weeks Assessment Summary Assessment Pt improved with gait and self correcting lateral lean. Able to walk on pods and over hurdles without handhold and good posture and balance. Pt requiring cues for lifting feet and turning R foot forward during push off phase of gait. Physical Therapy Plan Frequency and Duration Frequency of Treatment 2x/Week Duration of Treatment 8 wks Plan of Care Start Date 05/23/19 Plan of Care End Date 06/24/19 Therapeutic Interventions Therapeutic Interventions Aquatic Therapy,Home Exercise Program,Manual Therapy, Neuromuscular Re-education, Patient/Caregiver Education, Self-Care/Home Management,Soft Tissue Mobilization,Taping, Therapeutic Activities, Therapeutic Exercises Modalities Cold Pack/Ice Massage,Electric Stimulation,Hot Packs, Ultrasound Next Visit Focus/Plan Next Note Type Treatment Note Next Visit Plan Increase resistance exercises for LE strength and core stability to improve gait and balance.
--- NOTE | 2019-05-16 15:06 | PT.OTN ---
Current Diagnoses Low back pain (05/14/19) Physical Therapy Treatment Note PT-OP-A Visit Information Start: 04/23/19 15:12 Freq: Status: Active Protocol: Document 05/16/19 11:00 LJ (Rec: 05/16/19 15:06 LJ [id number]) Out-Patient Physical Therapy Visit Information Visit Information Visit Type Aquatic Treatment Note Visit Start Time 11:00 Visit Stop Time 11:50 Total Visit Minutes 50 Visit Number 8 Number of LOGGING TRUCK DRIVER Visits 2 PT-OP-B Current Condition Start: 04/23/19 15:12 Freq: Status: Active Protocol: Document 04/23/19 15:13 SAK (Rec: 04/23/19 16:05 SAK [id number]) Current Condition History of Current Condition Onset Date 2 yrs Current Complaints LBP History of Current Condition Reports persistent, function- limiting LBP with residual weakness in LE's. Previously having PT with best benefit from aquatic PT but had to discontinue due to medical issues. Underwent spinal decompression 2 years ago with no relief of pain. Has now had second opinion appointment and will be consulting further. Cortisone injection 4 wks ago helpful, has been trying to gradually increase his activity level to not overdo it. Not doing any exercises at home; stating I never sit down at home so am doing a lot of exercises. Found aquatic therapy helpful. Has a tendency to overdo. States he was told this am he has a problem with his liver, has no idea about plan for treatment. Pain is in lumbar spine and into LE's in past. Tingling both feet, reports tests for circulation show no problem. Some numbness bilateral feet. States no reflexes in LE's. Pain anterior left hip since helping a friend clean [employer] tub yesterday. Also had increase in pain a couple weeks ago with a day of extensive walking. Prior Treatments and Tests Cortisone injection 4 wks ago, no pain since shot, pain medicaitons, aquatic PT. Future Testing and Treatments Planned Sees orthopedist at [place] in 1 wk to discuss POC. Treatment Goals Patient/Caregiver Goals Strengthen his muscles and be able to resume prior functional level. Requests a couple more PT visits in the pool since he had to discontinue aquatic PT early. 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 PT-OP-J Posture/Palpation/Skin Start: 04/23/19 15:12 Freq: Status: Active Protocol: Document 04/23/19 15:13 SAK (Rec: 04/24/19 14:48 SAK [id number]) Posture Evaluation Position Standing Head/C-Spine Posture Forward Head T-Spine Posture Increased Kyphosis L-Spine Posture Increased Lordosis Shoulder Posture (L) Rounded,(R) Rounded,(L) Forward,(R) Forward Pelvis Posture Anteriorly Tilted Hip Posture (L) Externally Rotated,(R) Externally Rotated Palpation Assessment Location anterior left hip Palpation Findings Soft Tissue Tightness, Tenderness piriformis Palpation Findings Soft Tissue Tightness PT-OP-K Range of Motion Start: 04/23/19 15:12 Freq: Status: Active Protocol: Document 04/23/19 15:13 SAK (Rec: 04/24/19 14:48 SAK [id number]) Lumbar Spine Range of Motion Lumbar Spine Active Flexion 30 Extension 15 Lateral Flexion Left 30 Lateral Flexion Right 30 ROM Limitations Soft Tissue Tightness Hip Goniometric Range of Motion Hip Left Flexion w/Knee Flexed 100 Straight Leg Raise 55 Extension 0 Internal Rotation 20 External Rotation 40 Right Flexion w/Knee Flexed 100 Straight Leg Raise 50 Extension 0 Internal Rotation 20 External Rotation 45 Hip ROM Limitations Hip ROM Limitations Soft Tissue Tightness,Pain Knee Goniometric Range of Motion Knee Left Knee ROM WFL Yes Right Knee ROM WFL Yes Ankle and Foot Goniometric Range of Motion Ankle and Foot rneato Dorsiflexion with Knee Flexed 5 Dorsiflexion with Knee Extended 0 Plantarflexion 40 PT-OP-M Strength Start: 04/23/19 15:12 Freq: Status: Active Protocol: Document 04/23/19 15:13 SAK (Rec: 04/24/19 14:48 SAK [id number]) Trunk Strength Trunk Manual Muscle Testing Flexion 4- Good- Extension 4- Good- Hip Strength Hip Manual Muscle Testing Left Flexion (L2) 4+ Good+ Extension (S1) 3- Fair- Abduction 3+ Fair+ External Rotation 4 Good Internal Rotation 4+ Good+ Right Flexion (L2) 4+ Good+ Extension (S1) 3- Fair- Abduction 4- Good- External Rotation 4- Good- Internal Rotation 4 Good Knee Strength Knee Manual Muscle Testing Left Flexion (S2) 4+ Good+ Extension (L3) 4+ Good+ Right Flexion (S2) 4+ Good+ Extension (L3) 4- Good- Ankle/Foot Strength Ankle and Foot Manual Muscle Testing Left Dorsiflexion (L4) 4- Good- Right Dorsiflexion (L4) 4+ Good+ Toe Strength Toe Manual Muscle Testing Left Great Toe Extension 4- Good- Right Great Toe Flexion 4 Good PT-OP-Q Treatments Start: 04/23/19 15:12 Freq: Status: Active Protocol: Document 05/14/19 14:30 LJ (Rec: 05/14/19 15:37 LJ [id number]) Cardio Equipment Recumbent Stepper (Sci-Fit) Duration (Minutes) 8 Resistance 4 Seat Position 16 Other emphasis on LE alignment Gym Equipment Shuttle Balance 8 min Details WBOS, staggard, sideways Reps/Duration 8 min Comments red Therapeutic Exercises Supine Exercises 1 Supine Exercise Name Terminal Knee Extension Side bilateral Resistance 5 lbs Reps/Minutes 10 Reps, 10 sec holds Comments notable difficulty on right hip flexor stretch Reps/Minutes 30x2 Comments side of mat table Sidelying Exercises ITB stretch Side left Reps/Minutes 4 min Comments manual pressure point release with flex/ext Gait Training Gait Activity uneven surface gait in // bars Description stepping on pods and over hurdles Distance/Duration 10'x8 reps Treatment Focus balance Comments obstacle avoidance and tandem walking side walking Device Used t-band yellow Surface level Distance/Duration 10x3 Comments constant handhold on rail cues for posture Manual Therapy Treatment Soft Tissue Mobilization ITB Body Location LLE ITB Mobilization Type Cross-Friction,Myofascial Release Body Position Sidelying Comments pt in stretch position lying on right side w/LLE in extension PT-OP-S Aquatic Treatment Start: 04/23/19 15:12 Freq: Status: Active Protocol: Document 05/16/19 11:00 JAMIN (Rec: 05/16/19 15:06 LJ [id number]) Aquatics Treatment Pool Entry/Exit Pool Entry/Exit Method Stairs Assistance Independent Water Walking figure 8's around boxes Water Level Waist Level Comments 2 boxes forward and back backward step up on box Water Level Waist Level Comments better control this session quick reverses fwd/bck Water Level Chest Level Walking Equipment Resistance Fins Level of Assistance Verbal Cues stairs all directions Water Level Waist Level Comments 6 boxes march, straight leg march Water Level Chest Level Walking Equipment Ankle Weight- 5.0# Level of Assistance Verbal Cues Comments 2 laps fwd,bck,side Water Level Chest Level Walking Equipment Ankle Weight- 5.0# Level of Assistance Verbal Cues Lower Extremity Exercises resisted 90/90 hip ER Body Position Standing Water Level Waist Level Equipment hydroband Reps/Duration 15 bilat Comments band on stair rail and pt ankle HS curls Details standing at wall w/min hand support Body Position Standing Water Level Chest Level Equipment Ankle Weight- 5.0# Reps/Duration 2x10 bilat Comments cues for no hip flexion and erect posture HS curls and kickbacks Details standing at wall w/min hand support Body Position Standing Water Level Chest Level Equipment Ankle Weight- 5.0# Reps/Duration 2x10 bilat Comments cues for no hip flexion and erect posture CC,CCW Details standing at wall w/min hand support Body Position Standing Water Level Chest Level Equipment Ankle Weight- 5.0# Reps/Duration 2x 10 bilat Comments cues for core stab hip flex/ext, ab/ad Details standing at wall w/min hand support Body Position Standing Water Level Chest Level Equipment large resistance fins Reps/Duration 2x10 bilat Lower Extremity Stretches quads Details and hip flex Equipment Large Noodle Reps/Duration 2x1:00 lateral trunk and ITb stretch Body Position Standing Water Level Chest Level Reps/Duration 2 min static hold Comments holding wall hamstring, ITB, add Details at wall Body Position Standing Water Level Chest Level Equipment hydrofit cuffs and 1 lg noodle Reps/Duration [id number] hold Spinal Exercises trunk rotations Body Position Standing Water Level Chest Level Equipment hydroworks lg barbell Reps/Duration 15 each direction Comments verbal and manual cues [place] Activities [place] Activities Bicycle Duration 8 min PT-OP-T Assessment and Plan Start: 04/23/19 15:12 Freq: Status: Active Protocol: Document 05/16/19 11:00 JAMIN (Rec: 05/16/19 15:06 JAMIN [id number]) Physical Therapy Assessment Rehab Potential Rehabilitation Potential Good Evaluation Complexity Number of Personal Factors/Comorbidities 3 or More Number of Body Systems Impaired 4 or More Clinical Presentation at Evaluation Evolving Impairments Impairments Activity Tolerance,Posture,ROM ,Strength Goals Recreational Activities 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 LTG Duration 06/24/19 Perceived Disability Impairment Modified Oswestry Score 36% Operator Receptionist Goal (LTG) Pt will grade overall perceived disability on the Modified Oswestry Questionnaire to 20% or less. LTG Duration 06/24/19 knowledge deficit Impairment Patient doesn't currently perform HEP Short Term Goal (STG) Instruct in HEP STG Duration 05/07/19 Operator Receptionist Goal (LTG) Pt will report good tolerance and compliance to indep HEP and aquatic exercise progam LTG Duration 06/24/19 weakness Impairment Core and LE weakness STG Duration 6 weeks Senior Care Goal (LTG) Pt will have MMT of LE strength graded 4+/5 or greater LTG Duration 12 weeks Assessment Summary Assessment Pt improving with balance and coordination. More willing to attempt new exercises and accepts corrections more readily. No c/o pain or mention of needing to feel pain in order to improve. Physical Therapy Plan Frequency and Duration Frequency of Treatment 2x/Week Duration of Treatment 8 wks Plan of Care Start Date 05/23/19 Plan of Care End Date 06/24/19 Therapeutic Interventions Therapeutic Interventions Aquatic Therapy,Home Exercise Program,Manual Therapy, Neuromuscular Re-education, Patient/Caregiver Education, Self-Care/Home Management,Soft Tissue Mobilization,Taping, Therapeutic Activities, Therapeutic Exercises Modalities Cold Pack/Ice Massage,Electric Stimulation,Hot Packs, Ultrasound Next Visit Focus/Plan Next Note Type Treatment Note Next Visit Plan Increase resistance exercises for LE strength and core stability to improve gait and balance.
--- NOTE | 2019-07-30 16:12 | PT.OTRE ---
Current Diagnoses Low back pain (07/30/19) Visit Care Team Role Provider Type Julieth Frias Attending Provider Non-Staff Primary Care Provider Specialty: Medical Address: [address] [place] [address], [place], [address] Email: Physical Therapy Re-Evaluation PT-OP-A Visit Information Start: 04/23/19 15:12 Freq: Status: Active Protocol: Document 07/30/19 14:29 SAK (Rec: 07/30/19 15:22 SAK [id number]) Out-Patient Physical Therapy Visit Information Visit Information Visit Type Re-Evaluation Visit Start Time 14:30 Visit Stop Time 15:30 Total Visit Minutes 60 Visit Number 9 Number of MULTI OPERATION MACHINE OPERATOR Visits 0 Evaluation Information Evaluation Date 04/23/19 PT-OP-B Current Condition Start: 04/23/19 15:12 Freq: Status: Active Protocol: Document 04/23/19 15:13 SAK (Rec: 04/23/19 16:05 SAK [id number]) Current Condition History of Current Condition Onset Date 2 yrs Current Complaints LBP History of Current Condition Reports persistent, function- limiting LBP with residual weakness in LE's. Previously having PT with best benefit from aquatic PT but had to discontinue due to medical issues. Underwent spinal decompression 2 years ago with no relief of pain. Has now had second opinion appointment and will be consulting further. Cortisone injection 4 wks ago helpful, has been trying to gradually increase his activity level to not overdo it. Not doing any exercises at home; stating I never sit down at home so am doing a lot of exercises. Found aquatic therapy helpful. Has a tendency to overdo. States he was told this am he has a problem with his liver, has no idea about plan for treatment. Pain is in lumbar spine and into LE's in past. Tingling both feet, reports tests for circulation show no problem. Some numbness bilateral feet. States no reflexes in LE's. Pain anterior left hip since helping a friend clean [employer] tub yesterday. Also had increase in pain a couple weeks ago with a day of extensive walking. Prior Treatments and Tests Cortisone injection 4 wks ago, no pain since shot, pain medicaitons, aquatic PT. Future Testing and Treatments Planned Sees orthopedist at OR in 1 wk to discuss POC. Treatment Goals Patient/Caregiver Goals Strengthen his muscles and be able to resume prior functional level. Requests a couple more PT visits in the pool since he had to discontinue aquatic PT early. 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 Pain in left shoulder, right knee, and LBP persist. Can only tolerate standing 10-15 min. States he is primarily concerned about balance especially after this recent fall. Has grab bars in shower, but had right foot propped on edge of tub to wash feet, and slipped. Wants to work primarily on his balance. Is being put on oxygen at night, during the day if going to do any physical. Will bring to PT. Patient Questionnaires ABC- Activity Specific Balance Confidence Scale ABC Score 61 ABC Functional Impairment 20 to <40% Impaired (Score 61- 80) OP-PT Pain Assessment Pain Assessment Grid Paper Pain Assessment Grid Completed Yes Location lateral left LE Intensity 5 right knee Pain Location Details anterior Intensity 6 lumbar spine Pain Location Details central Intensity 5 PT-OP-D Balance Start: 04/23/19 15:12 Freq: Status: Active Protocol: Document 07/30/19 14:26 [facility] (Rec: 07/30/19 16:10 [facility] [id number]) Balance Tests Brown Balance Test Brown Balance Test Score 42 PT-OP-E Functional Tests Start: 04/23/19 15:12 Freq: Status: Active Protocol: Document 07/30/19 14:26 [facility] (Rec: 07/30/19 16:10 [facility] [id number]) Functional Tests Dynamic Gait Index (DGI) Score 16 PT-OP-J Posture/Palpation/Skin Start: 04/23/19 15:12 Freq: Status: Active Protocol: Document 04/23/19 15:13 [facility] (Rec: 04/24/19 14:48 [facility] [id number]) Posture Evaluation Position Standing Head/C-Spine Posture Forward Head T-Spine Posture Increased Kyphosis L-Spine Posture Increased Lordosis Shoulder Posture (L) Rounded,(R) Rounded,(L) Forward,(R) Forward Pelvis Posture Anteriorly Tilted Hip Posture (L) Externally Rotated,(R) Externally Rotated Palpation Assessment Location anterior left hip Palpation Findings Soft Tissue Tightness, Tenderness piriformis Palpation Findings Soft Tissue Tightness PT-OP-K Range of Motion Start: 04/23/19 15:12 Freq: Status: Active Protocol: Document 07/30/19 14:26 [facility] (Rec: 07/30/19 16:10 [facility] [id number]) Lumbar Spine Range of Motion Lumbar Spine Active Flexion 40 Extension 15 Lateral Flexion Left 35 Lateral Flexion Right 35 ROM Limitations Soft Tissue Tightness Hip Goniometric Range of Motion Hip Measured in Degrees Left Straight Leg Raise 55 Right Straight Leg Raise 45 Hip ROM Limitations Hip ROM Limitations Soft Tissue Tightness,Pain Knee Goniometric Range of Motion Knee Measured in Degrees Left Knee ROM WFL Yes Right Knee ROM WFL Yes Ankle and Foot Goniometric Range of Motion Ankle and Foot Measured in Degrees renato Dorsiflexion with Knee Flexed 5 Dorsiflexion with Knee Extended 0 Plantarflexion 45 PT-OP-M Strength Start: 04/23/19 15:12 Freq: Status: Active Protocol: Document 07/30/19 14:26 [facility] (Rec: 07/30/19 16:10 [facility] [id number]) Trunk Strength Trunk Manual Muscle Testing Flexion 4- Good- Extension 4- Good- Hip Strength Hip Manual Muscle Testing Left Flexion (L2) 4 Good Extension (S1) 3- Fair- Abduction 3+ Fair+ External Rotation 4- Good- Internal Rotation 4 Good Right Flexion (L2) 4 Good Extension (S1) 3- Fair- Abduction 4- Good- External Rotation 4- Good- Internal Rotation 4 Good Knee Strength Knee Manual Muscle Testing Left Flexion (S2) 4+ Good+ Extension (L3) 4+ Good+ Right Flexion (S2) 4+ Good+ Extension (L3) 4- Good- Ankle/Foot Strength Ankle and Foot Manual Muscle Testing Left Dorsiflexion (L4) 4- Good- Plantarflexion (S1) 4 Good Right Dorsiflexion (L4) 4+ Good+ Plantarflexion (S1) 4 Good Toe Strength Toe Manual Muscle Testing Left Great Toe Extension 4- Good- Right Great Toe Flexion 4 Good PT-OP-Q Treatments Start: 04/23/19 15:12 Freq: Status: Active Protocol: Document 07/30/19 14:29 [facility] (Rec: 07/30/19 15:22 [facility] [id number]) Gym Equipment Shuttle Balance chains red Details balance and weight shifts: WBOS, staggered feet Reps/Duration 10' Therapeutic Exercises Supine Exercises ITB Reps/Minutes 2x Comments manual Manual Therapy Treatment Soft Tissue Mobilization ITB Body Location LLE ITB Mobilization Type Instrument Assisted Intensity/Depth Moderate Body Position Sidelying Comments Knees bent, pillow between knees PT-OP-T Assessment and Plan Start: 04/23/19 15:12 Freq: Status: Active Protocol: Document 07/30/19 14:29 [facility] (Rec: 07/30/19 15:22 [facility] [id number]) Physical Therapy Assessment Rehab Potential Rehabilitation Potential Good Evaluation Complexity Number of Personal Factors/Comorbidities 3 or More Number of Body Systems Impaired 4 or More Clinical Presentation at Evaluation Evolving Impairments Impairments Activity Tolerance,Balance, Pain,Strength Goals Gait and bal dysfunction Impairment Dynamic gait index (DGI) 16 Short Term Goal (STG) Decrease fall risk as evidenced by improvement in DGI to at least 20 STG Duration 09/13/19 Dragline Engineer Goal (LTG) No reported falls, DGI improved to 22/24 LTG Duration 10/29/19 Balance dysfunction Impairment Brown bal score 42/56 Short Term Goal (STG) Decrease fall risk as evidenced by improvement in Brown balance score to at least 48 STG Duration 09/13/19 Retirement Goal (LTG) No reported falls, Brown balance score greater than 50 LTG Duration 10/29/19 Recreational Activities 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 LTG Duration 10/29/19 knowledge deficit Dragline Engineer Goal (LTG) Pt will report good tolerance and compliance to [facility] aquatic exercise program LTG Duration 10/29/19 weakness Impairment Core and LE weakness Dragline Engineer Goal (LTG) Pt will have MMT of LE strength graded 4+/5 or greater LTG Duration 10/29/19 pain Impairment 6/10 pain in low back, LLE, right LE Short Term Goal (STG) Pt will report pain 4/10 or less with daily functional activities. STG Duration 09/13/19 Retirement Goal (LTG) Pt will report pain 2/10 or less with daily functional activities. LTG Duration 10/29/19 Assessment Summary Assessment Patient presents with decline in function, decrease in strength and activity tolerance, balance dysfunction following fracture to his foot. He was previously benefiting from PT. He would benefit from resumption of PT to help him improve his strength, gait, balance, decrease his pain, and allow him to return to his previously very active lifestyle. Physical Therapy Plan Frequency and Duration Frequency of Treatment 2x/Week Duration of Treatment 8 wks Plan of Care Start Date 07/30/19 Plan of Care End Date 10/29/19 Therapeutic Interventions Therapeutic Interventions Aquatic Therapy,Home Exercise Program,Manual Therapy, Neuromuscular Re-education, Patient/Caregiver Education, Self-Care/Home Management,Soft Tissue Mobilization,Taping, Therapeutic Activities, Therapeutic Exercises Modalities Cold Pack/Ice Massage,Electric Stimulation,Hot Packs, Ultrasound Next Visit Focus/Plan Next Note Type Treatment Note Next Visit Plan Emphasis on challenged gait and balance activities, LE and core functional strengthening .
--- NOTE | 2019-07-30 16:13 | PT.OPPOC ---
Physical, Occupational & Speech Therapy At [facility] Current Diagnoses Low back pain (07/30/19) Pain in right leg (07/30/19) Pain in left leg (07/30/19) Difficulty in walking, not elsewhere classified (07/30/19) Weakness (07/30/19) Visit Care Team Role Provider Type Julieth Frias Attending Provider Non-Staff Primary Care Provider Specialty: Medical Address: [address] [place] [address], [id number] Email: Plan Of Care PT-OP-T Assessment and Plan Start: 04/23/19 15:12 Freq: Status: Active Protocol: Document 07/30/19 14:29 [facility]AK (Rec: 07/30/19 15:22 SAK [id number]) Physical Therapy Assessment Rehab Potential Rehabilitation Potential Good Evaluation Complexity Number of Personal Factors/Comorbidities 3 or More Number of Body Systems Impaired 4 or More Clinical Presentation at Evaluation Evolving Impairments Impairments Activity Tolerance,Balance, Pain,Strength Goals Gait and bal dysfunction Impairment Dynamic gait index (DGI) 16 Short Term Goal (STG) Decrease fall risk as evidenced by improvement in DGI to at least 20 STG Duration 09/13/19 Nursing Home Goal (LTG) No reported falls, DGI improved to 22/24 LTG Duration 10/29/19 Balance dysfunction Impairment Brown bal score 42/56 Short Term Goal (STG) Decrease fall risk as evidenced by improvement in Brown balance score to at least 48 STG Duration 09/13/19 Director Of Sustainable Design Goal (LTG) No reported falls, Brown balance score greater than 50 LTG Duration 10/29/19 Recreational Activities 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 LTG Duration 10/29/19 knowledge deficit Nursing Home Goal (LTG) Pt will report good tolerance and compliance to indep aquatic exercise program LTG Duration 10/29/19 weakness Impairment Core and LE weakness Nursing Home Goal (LTG) Pt will have MMT of LE strength graded 4+/5 or greater LTG Duration 10/29/19 pain Impairment 6/10 pain in low back, LLE, right LE Short Term Goal (STG) Pt will report pain 4/10 or less with daily functional activities. STG Duration 09/13/19 Nursing Home Goal (LTG) Pt will report pain 2/10 or less with daily functional activities. LTG Duration 10/29/19 Assessment Summary Assessment Patient presents with decline in function, decrease in strength and activity tolerance, balance dysfunction following fracture to his foot. He was previously benefiting from PT. He would benefit from resumption of PT to help him improve his strength, gait, balance, decrease his pain, and allow him to return to his previously very active lifestyle. Physical Therapy Plan Frequency and Duration Frequency of Treatment 2x/Week Duration of Treatment 8 wks Plan of Care Start Date 07/30/19 Plan of Care End Date 10/29/19 Therapeutic Interventions Therapeutic Interventions Aquatic Therapy,Home Exercise Program,Manual Therapy, Neuromuscular Re-education, Patient/Caregiver Education, Self-Care/Home Management,Soft Tissue Mobilization,Taping, Therapeutic Activities, Therapeutic Exercises Modalities Cold Pack/Ice Massage,Electric Stimulation,Hot Packs, Ultrasound Next Visit Focus/Plan Next Note Type Treatment Note Next Visit Plan Emphasis on challenged gait and balance activities, LE and core functional strengthening . Plan of Care Dates Plan of Care Start Date 07/30/19 Plan of Care End Date 10/29/19 Electronically Signed by: Leora Palacio, PT 07/30/19 0731 Please Sign and Return: I have reviewed this Plan of Care and certify that the skilled therapy services above are required to meet the patient?s needs. Physician Signature Date Printed Name and Credentials Clinical Instructor Signature Printed Name and Credentials
--- NOTE | 2019-08-02 15:55 | PT.OTN ---
Current Diagnoses Low back pain (08/02/19) Pain in right leg (08/02/19) Pain in left leg (08/02/19) Difficulty in walking, not elsewhere classified (08/02/19) Weakness (08/02/19) Physical Therapy Treatment Note PT-OP-A Visit Information Start: 04/23/19 15:12 Freq: Status: Active Protocol: Document 08/02/19 08:19 [facility] (Rec: 08/02/19 08:58 [facility] [id number]) Out-Patient Physical Therapy Visit Information Visit Information Visit Type Treatment Note Visit Start Time 08:15 Visit Stop Time 09:10 Total Visit Minutes 55 Visit Number 9 Number of MANAGER CREDIT Visits 0 PT-OP-B Current Condition Start: 04/23/19 15:12 Freq: Status: Active Protocol: Document 04/23/19 15:13 [facility] (Rec: 04/23/19 16:05 [facility] [id number]) Current Condition History of Current Condition Onset Date 2 yrs Current Complaints LBP History of Current Condition Reports persistent, function- limiting LBP with residual weakness in LE's. Previously having PT with best benefit from aquatic PT but had to discontinue due to medical issues. Underwent spinal decompression 2 years ago with no relief of pain. Has now had second opinion appointment and will be consulting further. Cortisone injection 4 wks ago helpful, has been trying to gradually increase his activity level to not overdo it. Not doing any exercises at home; stating I never sit down at home so am doing a lot of exercises. Found aquatic therapy helpful. Has a tendency to overdo. States he was told this am he has a problem with his liver, has no idea about plan for treatment. Pain is in lumbar spine and into LE's in past. Tingling both feet, reports tests for circulation show no problem. Some numbness bilateral feet. States no reflexes in LE's. Pain anterior left hip since helping a friend clean jacuzzi tub yesterday. Also had increase in pain a couple weeks ago with a day of extensive walking. Prior Treatments and Tests Cortisone injection 4 wks ago, no pain since shot, pain medicaitons, aquatic PT. Future Testing and Treatments Planned Sees orthopedist at [place] in 1 wk to discuss POC. Treatment Goals Patient/Caregiver Goals Strengthen his muscles and be able to resume prior functional level. Requests a couple more PT visits in the pool since he had to discontinue aquatic PT early. 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 Wearing oxygen at 2L per [place] as recommended by physician. [facility]. Not sure if oxygen helps him or not. PT-OP-D Balance Start: 04/23/19 15:12 Freq: Status: Active Protocol: Document 07/30/19 14:26 [facility] (Rec: 07/30/19 16:10 [facility] [id number]) Balance Tests Brown Balance Test Brown Balance Test Score 42 PT-OP-E Functional Tests Start: 04/23/19 15:12 Freq: Status: Active Protocol: Document 07/30/19 14:26 [facility] (Rec: 07/30/19 16:10 [facility] [id number]) Functional Tests Dynamic Gait Index (DGI) Score 16 PT-OP-J Posture/Palpation/Skin Start: 04/23/19 15:12 Freq: Status: Active Protocol: Document 04/23/19 15:13 [facility] (Rec: 04/24/19 14:48 [facility] [id number]) Posture Evaluation Position Standing Head/C-Spine Posture Forward Head T-Spine Posture Increased Kyphosis L-Spine Posture Increased Lordosis Shoulder Posture (L) Rounded,(R) Rounded,(L) Forward,(R) Forward Pelvis Posture Anteriorly Tilted Hip Posture (L) Externally Rotated,(R) Externally Rotated Palpation Assessment Location anterior left hip Palpation Findings Soft Tissue Tightness, Tenderness piriformis Palpation Findings Soft Tissue Tightness PT-OP-K Range of Motion Start: 04/23/19 15:12 Freq: Status: Active Protocol: Document 07/30/19 14:26 [facility] (Rec: 07/30/19 16:10 [facility] [id number]) Lumbar Spine Range of Motion Lumbar Spine Active Flexion 40 Extension 15 Lateral Flexion Left 35 Lateral Flexion Right 35 ROM Limitations Soft Tissue Tightness Hip Goniometric Range of Motion Hip Left Straight Leg Raise 55 Right Straight Leg Raise 45 Hip ROM Limitations Hip ROM Limitations Soft Tissue Tightness,Pain Knee Goniometric Range of Motion Knee Left Knee ROM WFL Yes Right Knee ROM WFL Yes Ankle and Foot Goniometric Range of Motion Ankle and Foot renato Dorsiflexion with Knee Flexed 5 Dorsiflexion with Knee Extended 0 Plantarflexion 45 PT-OP-M Strength Start: 04/23/19 15:12 Freq: Status: Active Protocol: Document 07/30/19 14:26 [facility] (Rec: 07/30/19 16:10 [facility] [id number]) Trunk Strength Trunk Manual Muscle Testing Flexion 4- Good- Extension 4- Good- Hip Strength Hip Manual Muscle Testing Left Flexion (L2) 4 Good Extension (S1) 3- Fair- Abduction 3+ Fair+ External Rotation 4- Good- Internal Rotation 4 Good Right Flexion (L2) 4 Good Extension (S1) 3- Fair- Abduction 4- Good- External Rotation 4- Good- Internal Rotation 4 Good Knee Strength Knee Manual Muscle Testing Left Flexion (S2) 4+ Good+ Extension (L3) 4+ Good+ Right Flexion (S2) 4+ Good+ Extension (L3) 4- Good- Ankle/Foot Strength Ankle and Foot Manual Muscle Testing Left Dorsiflexion (L4) 4- Good- Plantarflexion (S1) 4 Good Right Dorsiflexion (L4) 4+ Good+ Plantarflexion (S1) 4 Good Toe Strength Toe Manual Muscle Testing Left Great Toe Extension 4- Good- Right Great Toe Flexion 4 Good PT-OP-Q Treatments Start: 04/23/19 15:12 Freq: Status: Active Protocol: Document 08/02/19 08:19 [facility] (Rec: 08/02/19 08:58 [facility] [id number]) Cardio Equipment Recumbent Stepper (Sci-Fit) Duration (Minutes) 10 Resistance 2 Seat Position 17 Other emphasis on LE alignment Gym Equipment Shuttle Recovery Bilateral Squats Resistance 100 Shuttle Recovery Platform Stable Reps/Time 10x2 Shuttle Balance chains red Details balance and weight shifts: WBOS, staggered feet, side to side Reps/Duration 12' Therapeutic Exercises Supine Exercises ITB Reps/Minutes 2x Comments manual HS stretch Equipment Used strap and manual assist Reps/Minutes 30x2 piriformis Side bilateral Reps/Minutes 30x2 Standing Exercises 1 Standing Exercise Name Calf Stretch Equipment Used JOHN Reps/Minutes 30 x 2 Gait Training Gait Activity uneven surface gait in // bars Description stepping on pods and over hurdles Distance/Duration 10'x8 reps Treatment Focus balance Comments obstacle avoidance and tandem walking Manual Therapy Treatment Soft Tissue Mobilization ITB Body Location LLE ITB Mobilization Type Instrument Assisted Intensity/Depth Moderate Body Position Sidelying Comments Knees bent, pillow between knees PT-OP-S Aquatic Treatment Start: 04/23/19 15:12 Freq: Status: Active Protocol: Document 05/16/19 11:00 [facility] (Rec: 05/16/19 15:06 [facility] [id number]) Aquatics Treatment Pool Entry/Exit Pool Entry/Exit Method Stairs Assistance Independent Water Walking figure 8's around boxes Water Level Waist Level Comments 2 boxes forward and back backward step up on box Water Level Waist Level Comments better control this session quick reverses fwd/bck Water Level Chest Level Walking Equipment Resistance Fins Level of Assistance Verbal Cues stairs all directions Water Level Waist Level Comments 6 boxes march, straight leg march Water Level Chest Level Walking Equipment Ankle Weight- 5.0# Level of Assistance Verbal Cues Comments 2 laps fwd,bck,side Water Level Chest Level Walking Equipment Ankle Weight- 5.0# Level of Assistance Verbal Cues Lower Extremity Exercises resisted 90/90 hip ER Body Position Standing Water Level Waist Level Equipment hydroband Reps/Duration 15 bilat Comments band on stair rail and pt ankle HS curls Details standing at wall w/min hand support Body Position Standing Water Level Chest Level Equipment Ankle Weight- 5.0# Reps/Duration 2x10 bilat Comments cues for no hip flexion and erect posture HS curls and kickbacks Details standing at wall w/min hand support Body Position Standing Water Level Chest Level Equipment Ankle Weight- 5.0# Reps/Duration 2x10 bilat Comments cues for no hip flexion and erect posture CC,CCW Details standing at wall w/min hand support Body Position Standing Water Level Chest Level Equipment Ankle Weight- 5.0# Reps/Duration 2x 10 bilat Comments cues for core stab hip flex/ext, ab/ad Details standing at wall w/min hand support Body Position Standing Water Level Chest Level Equipment large resistance fins Reps/Duration 2x10 bilat Lower Extremity Stretches quads Details and hip flex Equipment Large Noodle Reps/Duration 2x1:00 lateral trunk and ITb stretch Body Position Standing Water Level Chest Level Reps/Duration 2 min static hold Comments holding wall hamstring, ITB, add Details at wall Body Position Standing Water Level Chest Level Equipment hydrofit cuffs and 1 lg noodle Reps/Duration [id number] hold Spinal Exercises trunk rotations Body Position Standing Water Level Chest Level Equipment hydroworks lg barbell Reps/Duration 15 each direction Comments verbal and manual cues [place] Activities [place] Activities Bicycle Duration 8 min PT-OP-T Assessment and Plan Start: 04/23/19 15:12 Freq: Status: Active Protocol: Document 08/02/19 08:19 [facility] (Rec: 08/02/19 08:58 [facility] [id number]) Physical Therapy Assessment Goals Gait and bal dysfunction Impairment Dynamic gait index (DGI) 16 Short Term Goal (STG) Decrease fall risk as evidenced by improvement in DGI to at least 20 STG Duration 09/13/19 Demurrage Agent Goal (LTG) No reported falls, DGI improved to 22/24 LTG Duration 10/29/19 Balance dysfunction Impairment Brown bal score 42/56 Short Term Goal (STG) Decrease fall risk as evidenced by improvement in Brown balance score to at least 48 STG Duration 09/13/19 Demurrage Agent Goal (LTG) No reported falls, Brown balance score greater than 50 LTG Duration 10/29/19 Recreational Activities 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 LTG Duration 10/29/19 Perceived Disability Impairment Modified Oswestry Score 36% Demurrage Agent Goal (LTG) Pt will grade overall perceived disability on the Modified Oswestry Questionnaire to 20% or less. LTG Duration 06/24/19 knowledge deficit Half-Way Goal (LTG) Pt will report good tolerance and compliance to indep aquatic exercise program LTG Duration 10/29/19 Activity tolerance Impairment Oswestry disability index score 57% Short Term Goal (STG) Decrease Oswestry score to no greater than 45% STG Duration Goal MET Demurrage Agent Goal (LTG) Decrease Oswestry score to no greater than 30% 11/01/18: GOAL PROGRESS 07/30/19: GOAL PROGRESS LTG Duration 10/29/19 weakness Impairment Core and LE weakness Half-Way Goal (LTG) Pt will have MMT of LE strength graded 4+/5 or greater LTG Duration 10/29/19 pain Impairment 6/10 pain in low back, LLE, right LE Short Term Goal (STG) Pt will report pain 4/10 or less with daily functional activities. STG Duration 09/13/19 Half-Way Goal (LTG) Pt will report pain 2/10 or less with daily functional activities. LTG Duration 10/29/19 Assessment Summary Assessment Oxygen saturation ranged from 91-96 today during treatment; patient wore oxygen entire time per [place] as noted. Needs moderate cues for alignment and core activation/ stabilization with all ther exercises. Physical Therapy Plan Frequency and Duration Frequency of Treatment 2x/Week Duration of Treatment 8 wks Plan of Care Start Date 07/30/19 Plan of Care End Date 10/29/19 Therapeutic Interventions Therapeutic Interventions Aquatic Therapy,Home Exercise Program,Manual Therapy, Neuromuscular Re-education, Patient/Caregiver Education, Self-Care/Home Management,Soft Tissue Mobilization,Taping, Therapeutic Activities, Therapeutic Exercises Modalities Cold Pack/Ice Massage,Electric Stimulation,Hot Packs, Ultrasound Next Visit Focus/Plan Next Note Type Treatment Note Next Visit Plan Continue PT per POC to improve strength, balance, safety and decrease pain.
--- NOTE | 2019-08-14 09:00 | PT.OTN ---
Current Diagnoses Low back pain (08/14/19) Pain in right leg (08/14/19) Pain in left leg (08/14/19) Difficulty in walking, not elsewhere classified (08/14/19) Weakness (08/14/19) Physical Therapy Treatment Note PT-OP-A Visit Information Start: 04/23/19 15:12 Freq: Status: Active Protocol: Document 08/14/19 08:16 SAK (Rec: 08/14/19 08:59 SAK [id number]) Out-Patient Physical Therapy Visit Information Visit Information Visit Type Treatment Note Visit Start Time 08:15 Visit Stop Time 09:00 Total Visit Minutes 45 Visit Number 11 Number of PROFESSIONAL NURSING ASSISTANT Visits 0 Evaluation Information Evaluation Date 04/23/19 PT-OP-B Current Condition Start: 04/23/19 15:12 Freq: Status: Active Protocol: Document 04/23/19 15:13 SAK (Rec: 04/23/19 16:05 SAK [id number]) Current Condition History of Current Condition Onset Date 2 yrs Current Complaints LBP History of Current Condition Reports persistent, function- limiting LBP with residual weakness in LE's. Previously having PT with best benefit from aquatic PT but had to discontinue due to medical issues. Underwent spinal decompression 2 years ago with no relief of pain. Has now had second opinion appointment and will be consulting further. Cortisone injection 4 wks ago helpful, has been trying to gradually increase his activity level to not overdo it. Not doing any exercises at home; stating I never sit down at home so am doing a lot of exercises. Found aquatic therapy helpful. Has a tendency to overdo. States he was told this am he has a problem with his liver, has no idea about plan for treatment. Pain is in lumbar spine and into LE's in past. Tingling both feet, reports tests for circulation show no problem. Some numbness bilateral feet. States no reflexes in LE's. Pain anterior left hip since helping a friend clean [email or web address] tub yesterday. Also had increase in pain a couple weeks ago with a day of extensive walking. Prior Treatments and Tests Cortisone injection 4 wks ago, no pain since shot, pain medicaitons, aquatic PT. Future Testing and Treatments Planned Sees orthopedist at [place] in 1 wk to discuss POC. Treatment Goals Patient/Caregiver Goals Strengthen his muscles and be able to resume prior functional level. Requests a couple more PT visits in the pool since he had to discontinue aquatic PT early. 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 Balance remains an issue. PT-OP-D Balance Start: 04/23/19 15:12 Freq: Status: Active Protocol: Document 07/30/19 14:26 [facility] (Rec: 07/30/19 16:10 [facility] [id number]) Balance Tests Brown Balance Test Brown Balance Test Score 42 PT-OP-E Functional Tests Start: 04/23/19 15:12 Freq: Status: Active Protocol: Document 07/30/19 14:26 [facility] (Rec: 07/30/19 16:10 [facility] [id number]) Functional Tests Dynamic Gait Index (DGI) Score 16 PT-OP-J Posture/Palpation/Skin Start: 04/23/19 15:12 Freq: Status: Active Protocol: Document 04/23/19 15:13 [facility] (Rec: 04/24/19 14:48 [facility] [id number]) Posture Evaluation Position Standing Head/C-Spine Posture Forward Head T-Spine Posture Increased Kyphosis L-Spine Posture Increased Lordosis Shoulder Posture (L) Rounded,(R) Rounded,(L) Forward,(R) Forward Pelvis Posture Anteriorly Tilted Hip Posture (L) Externally Rotated,(R) Externally Rotated Palpation Assessment Location anterior left hip Palpation Findings Soft Tissue Tightness, Tenderness piriformis Palpation Findings Soft Tissue Tightness PT-OP-K Range of Motion Start: 04/23/19 15:12 Freq: Status: Active Protocol: Document 07/30/19 14:26 [facility] (Rec: 07/30/19 16:10 [facility] [id number]) Lumbar Spine Range of Motion Lumbar Spine Active Flexion 40 Extension 15 Lateral Flexion Left 35 Lateral Flexion Right 35 ROM Limitations Soft Tissue Tightness Hip Goniometric Range of Motion Hip Left Straight Leg Raise 55 Right Straight Leg Raise 45 Hip ROM Limitations Hip ROM Limitations Soft Tissue Tightness,Pain Knee Goniometric Range of Motion Knee Left Knee ROM WFL Yes Right Knee ROM WFL Yes Ankle and Foot Goniometric Range of Motion Ankle and Foot renato Dorsiflexion with Knee Flexed 5 Dorsiflexion with Knee Extended 0 Plantarflexion 45 PT-OP-M Strength Start: 04/23/19 15:12 Freq: Status: Active Protocol: Document 07/30/19 14:26 [facility] (Rec: 07/30/19 16:10 [facility] [id number]) Trunk Strength Trunk Manual Muscle Testing Flexion 4- Good- Extension 4- Good- Hip Strength Hip Manual Muscle Testing Left Flexion (L2) 4 Good Extension (S1) 3- Fair- Abduction 3+ Fair+ External Rotation 4- Good- Internal Rotation 4 Good Right Flexion (L2) 4 Good Extension (S1) 3- Fair- Abduction 4- Good- External Rotation 4- Good- Internal Rotation 4 Good Knee Strength Knee Manual Muscle Testing Left Flexion (S2) 4+ Good+ Extension (L3) 4+ Good+ Right Flexion (S2) 4+ Good+ Extension (L3) 4- Good- Ankle/Foot Strength Ankle and Foot Manual Muscle Testing Left Dorsiflexion (L4) 4- Good- Plantarflexion (S1) 4 Good Right Dorsiflexion (L4) 4+ Good+ Plantarflexion (S1) 4 Good Toe Strength Toe Manual Muscle Testing Left Great Toe Extension 4- Good- Right Great Toe Flexion 4 Good PT-OP-Q Treatments Start: 04/23/19 15:12 Freq: Status: Active Protocol: Document 08/14/19 08:16 [facility] (Rec: 08/14/19 08:59 [facility] [id number]) Cardio Equipment Recumbent Stepper (Sci-Fit) Duration (Minutes) 10 Resistance 4 Seat Position 17 Other emphasis on LE alignment Gym Equipment Shuttle Recovery Bilateral Squats Resistance 150 Shuttle Recovery Platform Stable Reps/Time 10x2 Shuttle Balance chains red Details balance and weight shifts: WBOS, staggered feet, side to side Reps/Duration 12' Therapeutic Exercises Supine Exercises ITB Reps/Minutes 2x Comments manual HS stretch Equipment Used strap and manual assist Reps/Minutes 30x2 piriformis Side bilateral Reps/Minutes 30x2 Standing Exercises 1 Standing Exercise Name Calf Stretch Equipment Used JOHN Reps/Minutes 30 x 2 Gait Training Gait Activity uneven surface gait in // bars Description stepping on pods and over hurdles Distance/Duration 10'x8 reps Treatment Focus balance Comments obstacle avoidance and tandem walking Manual Therapy Treatment Soft Tissue Mobilization ITB Body Location LLE ITB Mobilization Type Instrument Assisted Intensity/Depth Moderate Body Position Sidelying Comments Knees bent, pillow between knees Neuro Re-Education Treatment Balance Activities tandem stand and tandem gait Reps/Duration 5 min Comments CG to min assist BOSU lunges Reps/Duration 10x2 hurdlesw Details parallel bars Equipment hurdles Reps/Duration 10x2 Comments hurdles with foam PT-OP-S Aquatic Treatment Start: 04/23/19 15:12 Freq: Status: Active Protocol: Document 05/16/19 11:00 JAMIN (Rec: 05/16/19 15:06 JAMIN [id number]) Aquatics Treatment Pool Entry/Exit Pool Entry/Exit Method Stairs Assistance Independent Water Walking figure 8's around boxes Water Level Waist Level Comments 2 boxes forward and back backward step up on box Water Level Waist Level Comments better control this session quick reverses fwd/bck Water Level Chest Level Walking Equipment Resistance Fins Level of Assistance Verbal Cues stairs all directions Water Level Waist Level Comments 6 boxes march, straight leg march Water Level Chest Level Walking Equipment Ankle Weight- 5.0# Level of Assistance Verbal Cues Comments 2 laps fwd,bck,side Water Level Chest Level Walking Equipment Ankle Weight- 5.0# Level of Assistance Verbal Cues Lower Extremity Exercises resisted 90/90 hip ER Body Position Standing Water Level Waist Level Equipment hydroband Reps/Duration 15 bilat Comments band on stair rail and pt ankle HS curls Details standing at wall w/min hand support Body Position Standing Water Level Chest Level Equipment Ankle Weight- 5.0# Reps/Duration 2x10 bilat Comments cues for no hip flexion and erect posture HS curls and kickbacks Details standing at wall w/min hand support Body Position Standing Water Level Chest Level Equipment Ankle Weight- 5.0# Reps/Duration 2x10 bilat Comments cues for no hip flexion and erect posture CC,CCW Details standing at wall w/min hand support Body Position Standing Water Level Chest Level Equipment Ankle Weight- 5.0# Reps/Duration 2x 10 bilat Comments cues for core stab hip flex/ext, ab/ad Details standing at wall w/min hand support Body Position Standing Water Level Chest Level Equipment large resistance fins Reps/Duration 2x10 bilat Lower Extremity Stretches quads Details and hip flex Equipment Large Noodle Reps/Duration 2x1:00 lateral trunk and ITb stretch Body Position Standing Water Level Chest Level Reps/Duration 2 min static hold Comments holding wall hamstring, ITB, add Details at wall Body Position Standing Water Level Chest Level Equipment hydrofit cuffs and 1 lg noodle Reps/Duration [id number] hold Spinal Exercises trunk rotations Body Position Standing Water Level Chest Level Equipment hydroworks lg barbell Reps/Duration 15 each direction Comments verbal and manual cues Olean Activities Olean Activities Bicycle Duration 8 min PT-OP-T Assessment and Plan Start: 04/23/19 15:12 Freq: Status: Active Protocol: Document 08/14/19 08:16 [facility] (Rec: 08/14/19 08:59 [facility] [id number]) Physical Therapy Assessment Goals Gait and bal dysfunction Impairment Dynamic gait index (DGI) Short Term Goal (STG) Decrease fall risk as evidenced by improvement in DGI to at least 20 STG Duration 09/13/19 Prison Goal (LTG) No reported falls, DGI improved to 22/24 LTG Duration 10/29/19 Balance dysfunction Impairment Brown bal score 42/56 Short Term Goal (STG) Decrease fall risk as evidenced by improvement in Brown balance score to at least 48 STG Duration 09/13/19 Prison Goal (LTG) No reported falls, Brown balance score greater than 50 LTG Duration 10/29/19 Recreational Activities 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 LTG Duration 10/29/19 Perceived Disability Impairment Modified Oswestry Score 36% Straightedge Machine Operator Helper Goal (LTG) Pt will grade overall perceived disability on the Modified Oswestry Questionnaire to 20% or less. LTG Duration 06/24/19 knowledge deficit Straightedge Machine Operator Helper Goal (LTG) Pt will report good tolerance and compliance to indep aquatic exercise program LTG Duration 10/29/19 Activity tolerance Impairment Oswestry disability index score 57% Short Term Goal (STG) Decrease Oswestry score to no greater than 45% STG Duration Goal MET Straightedge Machine Operator Helper Goal (LTG) Decrease Oswestry score to no greater than 30% 11/01/18: GOAL PROGRESS 07/30/19: GOAL PROGRESS LTG Duration 10/29/19 weakness Impairment Core and LE weakness Prison Goal (LTG) Pt will have MMT of LE strength graded 4+/5 or greater LTG Duration 10/29/19 pain Impairment 6/10 pain in low back, LLE, right LE Short Term Goal (STG) Pt will report pain 4/10 or less with daily functional activities. STG Duration 09/13/19 Prison Goal (LTG) Pt will report pain 2/10 or less with daily functional activities. LTG Duration 10/29/19 Assessment Summary Assessment Oxygen at 1L, O2 sats stayed 92-96. Mild SOB, tolerated progression of balance ex well , cues to increase challenge with dec UE support Physical Therapy Plan Frequency and Duration Frequency of Treatment 2x/Week Duration of Treatment 8 wks Plan of Care Start Date 07/30/19 Plan of Care End Date 10/29/19 Therapeutic Interventions Therapeutic Interventions Aquatic Therapy,Home Exercise Program,Manual Therapy, Neuromuscular Re-education, Patient/Caregiver Education, Self-Care/Home Management,Soft Tissue Mobilization,Taping, Therapeutic Activities, Therapeutic Exercises Modalities Cold Pack/Ice Massage,Electric Stimulation,Hot Packs, Ultrasound Next Visit Focus/Plan Next Note Type Treatment Note Next Visit Plan Continue PT per POC to improve strength, balance, safety and decrease pain.
--- NOTE | 2019-08-16 09:04 | PT.OTN ---
Current Diagnoses Low back pain (08/16/19) Pain in right leg (08/16/19) Pain in left leg (08/16/19) Difficulty in walking, not elsewhere classified (08/16/19) Weakness (08/16/19) Physical Therapy Treatment Note PT-OP-A Visit Information Start: 04/23/19 15:12 Freq: Status: Active Protocol: Document 08/16/19 08:15 SAK (Rec: 08/16/19 09:04 SAK [id number]) Out-Patient Physical Therapy Visit Information Visit Information Visit Type Progress Note Visit Start Time 08:15 Visit Stop Time 09:00 Total Visit Minutes 45 Visit Number 11 Number of POSTDOCTORAL RESEARCH FELLOW Visits 0 Evaluation Information Evaluation Date 04/23/19 PT-OP-B Current Condition Start: 04/23/19 15:12 Freq: Status: Active Protocol: Document 04/23/19 15:13 SAK (Rec: 04/23/19 16:05 SAK [id number]) Current Condition History of Current Condition Onset Date 2 yrs Current Complaints LBP History of Current Condition Reports persistent, function- limiting LBP with residual weakness in LE's. Previously having PT with best benefit from aquatic PT but had to discontinue due to medical issues. Underwent spinal decompression 2 years ago with no relief of pain. Has now had second opinion appointment and will be consulting further. Cortisone injection 4 wks ago helpful, has been trying to gradually increase his activity level to not overdo it. Not doing any exercises at home; stating I never sit down at home so am doing a lot of exercises. Found aquatic therapy helpful. Has a tendency to overdo. States he was told this am he has a problem with his liver, has no idea about plan for treatment. Pain is in lumbar spine and into LE's in past. Tingling both feet, reports tests for circulation show no problem. Some numbness bilateral feet. States no reflexes in LE's. Pain anterior left hip since helping a friend clean jacuzzi tub yesterday. Also had increase in pain a couple weeks ago with a day of extensive walking. Prior Treatments and Tests Cortisone injection 4 wks ago, no pain since shot, pain medicaitons, aquatic PT. Future Testing and Treatments Planned Sees [facility]opedist [facility] in 1 wk to discuss POC. Treatment Goals Patient/Caregiver Goals Strengthen his muscles and be able to resume prior functional level. Requests a couple more PT visits in the pool since he had to discontinue aquatic PT early. 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 PT-OP-D Balance Start: 04/23/19 15:12 Freq: Status: Active Protocol: Document 07/30/19 14:26 [facility] (Rec: 07/30/19 16:10 [facility] [id number]) Balance Tests Brown Balance Test Brown Balance Test Score 42 PT-OP-E Functional Tests Start: 04/23/19 15:12 Freq: Status: Active Protocol: Document 07/30/19 14:26 [facility] (Rec: 07/30/19 16:10 [facility] [id number]) Functional Tests Dynamic Gait Index (DGI) Score 16 PT-OP-J Posture/Palpation/Skin Start: 04/23/19 15:12 Freq: Status: Active Protocol: Document 04/23/19 15:13 [facility] (Rec: 04/24/19 14:48 [facility] [id number]) Posture Evaluation Position Standing Head/C-Spine Posture Forward Head T-Spine Posture Increased Kyphosis L-Spine Posture Increased Lordosis Shoulder Posture (L) Rounded,(R) Rounded,(L) Forward,(R) Forward Pelvis Posture Anteriorly Tilted Hip Posture (L) Externally Rotated,(R) Externally Rotated Palpation Assessment Location anterior left hip Palpation Findings Soft Tissue Tightness, Tenderness piriformis Palpation Findings Soft Tissue Tightness PT-OP-K Range of Motion Start: 04/23/19 15:12 Freq: Status: Active Protocol: Document 07/30/19 14:26 [facility] (Rec: 07/30/19 16:10 [facility] [id number]) Lumbar Spine Range of Motion Lumbar Spine Active Flexion 40 Extension 15 Lateral Flexion Left 35 Lateral Flexion Right 35 ROM Limitations Soft Tissue Tightness Hip Goniometric Range of Motion Hip Left Straight Leg Raise 55 Right Straight Leg Raise 45 Hip ROM Limitations Hip ROM Limitations Soft Tissue Tightness,Pain Knee Goniometric Range of Motion Knee Left Knee ROM WFL Yes Right Knee ROM WFL Yes Ankle and Foot Goniometric Range of Motion Ankle and Foot renato Dorsiflexion with Knee Flexed 5 Dorsiflexion with Knee Extended 0 Plantarflexion 45 PT-OP-M Strength Start: 04/23/19 15:12 Freq: Status: Active Protocol: Document 07/30/19 14:26 [facility] (Rec: 07/30/19 16:10 [facility] [id number]) Trunk Strength Trunk Manual Muscle Testing Flexion 4- Good- Extension 4- Good- Hip Strength Hip Manual Muscle Testing Left Flexion (L2) 4 Good Extension (S1) 3- Fair- Abduction 3+ Fair+ External Rotation 4- Good- Internal Rotation 4 Good Right Flexion (L2) 4 Good Extension (S1) 3- Fair- Abduction 4- Good- External Rotation 4- Good- Internal Rotation 4 Good Knee Strength Knee Manual Muscle Testing Left Flexion (S2) 4+ Good+ Extension (L3) 4+ Good+ Right Flexion (S2) 4+ Good+ Extension (L3) 4- Good- Ankle/Foot Strength Ankle and Foot Manual Muscle Testing Left Dorsiflexion (L4) 4- Good- Plantarflexion (S1) 4 Good Right Dorsiflexion (L4) 4+ Good+ Plantarflexion (S1) 4 Good Toe Strength Toe Manual Muscle Testing Left Great Toe Extension 4- Good- Right Great Toe Flexion 4 Good PT-OP-Q Treatments Start: 04/23/19 15:12 Freq: Status: Active Protocol: Document 08/16/19 08:15 [facility] (Rec: 08/16/19 09:04 [facility] [id number]) Cardio Equipment Recumbent Stepper (Sci-Fit) Duration (Minutes) 10 Resistance 5 Seat Position 15 Other emphasis on LE alignment Gym Equipment Shuttle Recovery Unilateral Squats Resistance 75 Shuttle Recovery Platform Stable Reps/Time 10x2 Bilateral Squats Resistance 125 Shuttle Recovery Platform Stable Reps/Time 10x3 Shuttle Balance chains red Details balance and weight shifts: WBOS, staggered feet, side to side Reps/Duration 12' Comments added ball toss into rebounder with feet parallel Therapeutic Exercises Supine Exercises ITB Reps/Minutes 2x Comments manual HS stretch Equipment Used strap and manual assist Reps/Minutes 30x2 Standing Exercises 1 Standing Exercise Name Calf Stretch Equipment Used JOHN Reps/Minutes 30 x 2 Gait Training Gait Activity uneven surface gait in // bars Description obstacle course Distance/Duration 10'x8 reps Treatment Focus balance Comments balance beam, foam, balanvce pods, 12 box side walking Device Used t-band yellow Surface level Distance/Duration 10x3 Comments constant handhold on rail cues for posture Manual Therapy Treatment Soft Tissue Mobilization ITB Body Location LLE ITB Mobilization Type Instrument Assisted Intensity/Depth Moderate Body Position Sidelying Comments Knees bent, pillow between knees PT-OP-S Aquatic Treatment Start: 04/23/19 15:12 Freq: Status: Active Protocol: Document 05/16/19 11:00 JAMIN (Rec: 05/16/19 15:06 JAMIN [id number]) Aquatics Treatment Pool Entry/Exit Pool Entry/Exit Method Stairs Assistance Independent Water Walking figure 8's around boxes Water Level Waist Level Comments 2 boxes forward and back backward step up on box Water Level Waist Level Comments better control this session quick reverses fwd/bck Water Level Chest Level Walking Equipment Resistance Fins Level of Assistance Verbal Cues stairs all directions Water Level Waist Level Comments 6 boxes march, straight leg march Water Level Chest Level Walking Equipment Ankle Weight- 5.0# Level of Assistance Verbal Cues Comments 2 laps fwd,bck,side Water Level Chest Level Walking Equipment Ankle Weight- 5.0# Level of Assistance Verbal Cues Lower Extremity Exercises resisted 90/90 hip ER Body Position Standing Water Level Waist Level Equipment hydroband Reps/Duration 15 bilat Comments band on stair rail and pt ankle HS curls Details standing at wall w/min hand support Body Position Standing Water Level Chest Level Equipment Ankle Weight- 5.0# Reps/Duration 2x10 bilat Comments cues for no hip flexion and erect posture HS curls and kickbacks Details standing at wall w/min hand support Body Position Standing Water Level Chest Level Equipment Ankle Weight- 5.0# Reps/Duration 2x10 bilat Comments cues for no hip flexion and erect posture CC,CCW Details standing at wall w/min hand support Body Position Standing Water Level Chest Level Equipment Ankle Weight- 5.0# Reps/Duration 2x 10 bilat Comments cues for core stab hip flex/ext, ab/ad Details standing at wall w/min hand support Body Position Standing Water Level Chest Level Equipment large resistance fins Reps/Duration 2x10 bilat Lower Extremity Stretches quads Details and hip flex Equipment Large Noodle Reps/Duration 2x1:00 lateral trunk and ITb stretch Body Position Standing Water Level Chest Level Reps/Duration 2 min static hold Comments holding wall hamstring, ITB, add Details at wall Body Position Standing Water Level Chest Level Equipment hydrofit cuffs and 1 lg noodle Reps/Duration [id number] hold Spinal Exercises trunk rotations Body Position Standing Water Level Chest Level Equipment hydroworks lg barbell Reps/Duration 15 each direction Comments verbal and manual cues [place] Activities [place] Activities Bicycle Duration 8 min PT-OP-T Assessment and Plan Start: 04/23/19 15:12 Freq: Status: Active Protocol: Document 08/16/19 08:15 OSMAR (Rec: 08/16/19 09:04 [facility] [id number]) Physical Therapy Assessment Goals Gait and bal dysfunction Impairment Dynamic gait index (DGI) 16 Short Term Goal (STG) Decrease fall risk as evidenced by improvement in DGI to at least 20 STG Duration 09/13/19 Residential Goal (LTG) No reported falls, DGI improved to 22/24 LTG Duration 10/29/19 Balance dysfunction Impairment Brown bal score 42/56 Short Term Goal (STG) Decrease fall risk as evidenced by improvement in Brown balance score to at least 48 STG Duration 09/13/19 [employer] Goal (LTG) No reported falls, Brown balance score greater than 50 LTG Duration 10/29/19 Recreational Activities 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 LTG Duration 10/29/19 Perceived Disability Impairment Modified Oswestry Score 36% Residential Goal (LTG) Pt will grade overall perceived disability on the Modified Oswestry Questionnaire to 20% or less. LTG Duration 10/29/19 knowledge deficit Residential Goal (LTG) Pt will report good tolerance and compliance to [facility] aquatic exercise program LTG Duration 10/29/19 Activity tolerance Impairment Oswestry disability index score 57% Short Term Goal (STG) Decrease Oswestry score to no greater than 45% STG Duration Goal MET [employer] Goal (LTG) Decrease Oswestry score to no greater than 30% 11/01/18: GOAL PROGRESS 07/30/19: GOAL PROGRESS LTG Duration 10/29/19 weakness Impairment Core and LE weakness [employer]ender Goal (LTG) Pt will have MMT of LE strength graded 4+/5 or greater LTG Duration 10/29/19 pain Impairment 6/10 pain in low back, LLE, right LE Short Term Goal (STG) Pt will report pain 4/10 or less with daily functional activities. STG Duration 09/13/19 [employer] Goal (LTG) Pt will report pain 2/10 or less with daily functional activities. LTG Duration 10/29/19 Assessment Summary Assessment Patient did not wear oxygen today; O2 sats stayed 92-93% even with progression of balance activities. CG to mod assist for balance on obstacle course, improved with repetition. No pain with leg press; reduced weight today due to exacerbation of left hip pain after last session. Physical Therapy Plan Frequency and Duration Frequency of Treatment 2x/Week Duration of Treatment 8 wks Plan of Care Start Date 07/30/19 Plan of Care End Date 10/29/19 Therapeutic Interventions Therapeutic Interventions Aquatic Therapy,Home Exercise Program,Manual Therapy, Neuromuscular Re-education, Patient/Caregiver Education, Self-Care/Home Management,Soft Tissue Mobilization,Taping, Therapeutic Activities, Therapeutic Exercises Modalities Cold Pack/Ice Massage,Electric Stimulation,Hot Packs, Ultrasound Next Visit Focus/Plan Next Note Type Treatment Note Next Visit Plan Progress ther ex and neuro re- ed to improve balance and strength. Pain management as needed.
--- NOTE | 2019-08-20 16:14 | PT.OTN ---
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 Previously having PT with best benefit from aquatic PT but had to discontinue due to medical issues. Underwent spinal decompression 2 years ago with no relief of pain. Has now had second opinion appointment and will be consulting further. Cortisone injection 4 wks ago helpful, has been trying to gradually increase his activity level to not overdo it. Not doing any exercises at home; stating I never sit down at home so am doing a lot of exercises. Found aquatic therapy helpful. Has a tendency to overdo. States he was told this am he has a problem with his liver, has no idea about plan for treatment. Pain is in lumbar spine and into LE's in past. Tingling both feet, reports tests for circulation show no problem. Some numbness bilateral feet. States no reflexes in LE's. Pain anterior left hip since helping a friend clean jacuzzi tub yesterday. Also had increase in pain a couple weeks ago with a day of extensive walking. Prior Treatments and Tests Cortisone injection 4 wks ago, no pain since shot, pain medicaitons, aquatic PT. Future Testing and Treatments Planned Sees orthopedist [place] in 1 wk to discuss POC. Treatment Goals Patient/Caregiver Goals Strengthen his muscles and be able to resume prior functional level. Requests a couple more PT visits in the pool since he had to discontinue aquatic PT early. 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 PT-OP-D Balance Start: 04/23/19 15:12 Freq: Status: Active Protocol: Document 07/30/19 14:26 SAK (Rec: 07/30/19 16:10 SAK [id number]) Balance Tests Brown Balance Test Brown Balance Test Score 42 PT-OP-E Functional Tests Start: 04/23/19 15:12 Freq: Status: Active Protocol: Document 07/30/19 14:26 SAK (Rec: 07/30/19 16:10 SAK [id number]) Functional Tests Dynamic Gait Index (DGI) Score 16 PT-OP-J Posture/Palpation/Skin Start: 04/23/19 15:12 Freq: Status: Active Protocol: Document 04/23/19 15:13 SAK (Rec: 04/24/19 14:48 SAK [id number]) Posture Evaluation Position Standing Head/C-Spine Posture Forward Head T-Spine Posture Increased Kyphosis L-Spine Posture Increased Lordosis Shoulder Posture (L) Rounded,(R) Rounded,(L) Forward,(R) Forward Pelvis Posture Anteriorly Tilted Hip Posture (L) Externally Rotated,(R) Externally Rotated Palpation Assessment Location anterior left hip Palpation Findings Soft Tissue Tightness, Tenderness piriformis Palpation Findings Soft Tissue Tightness PT-OP-K Range of Motion Start: 04/23/19 15:12 Freq: Status: Active Protocol: Document 07/30/19 14:26 SAK (Rec: 07/30/19 16:10 SAK [id number]) Lumbar Spine Range of Motion Lumbar Spine Active Flexion 40 Extension 15 Lateral Flexion Left 35 Lateral Flexion Right 35 ROM Limitations Soft Tissue Tightness Hip Goniometric Range of Motion Hip Left Straight Leg Raise 55 Right Straight Leg Raise 45 Hip ROM Limitations Hip ROM Limitations Soft Tissue Tightness,Pain Knee Goniometric Range of Motion Knee Left Knee ROM WFL Yes Right Knee ROM WFL Yes Ankle and Foot Goniometric Range of Motion Ankle and Foot renato Dorsiflexion with Knee Flexed 5 Dorsiflexion with Knee Extended 0 Plantarflexion 45 PT-OP-M Strength Start: 04/23/19 15:12 Freq: Status: Active Protocol: Document 07/30/19 14:26 SAK (Rec: 07/30/19 16:10 SAK [id number]) Trunk Strength Trunk Manual Muscle Testing Flexion 4- Good- Extension 4- Good- Hip Strength Hip Manual Muscle Testing Left Flexion (L2) 4 Good Extension (S1) 3- Fair- Abduction 3+ Fair+ External Rotation 4- Good- Internal Rotation 4 Good Right Flexion (L2) 4 Good Extension (S1) 3- Fair- Abduction 4- Good- External Rotation 4- Good- Internal Rotation 4 Good Knee Strength Knee Manual Muscle Testing Left Flexion (S2) 4+ Good+ Extension (L3) 4+ Good+ Right Flexion (S2) 4+ Good+ Extension (L3) 4- Good- Ankle/Foot Strength Ankle and Foot Manual Muscle Testing Left Dorsiflexion (L4) 4- Good- Plantarflexion (S1) 4 Good Right Dorsiflexion (L4) 4+ Good+ Plantarflexion (S1) 4 Good Toe Strength Toe Manual Muscle Testing Left Great Toe Extension 4- Good- Right Great Toe Flexion 4 Good PT-OP-Q Treatments Start: 04/23/19 15:12 Freq: Status: Active Protocol: Document 08/20/19 15:15 JAMIN (Rec: 08/20/19 16:14 JAMIN [id number]) Cardio Equipment Recumbent Stepper (Sci-Fit) Duration (Minutes) 10 Resistance 5.2 Seat Position 15 Other emphasis on LE alignment Gym Equipment Shuttle Recovery Unilateral Squats Resistance 75 Shuttle Recovery Platform Stable Reps/Time 10x2 Bilateral Squats Resistance 125 Shuttle Recovery Platform Stable Reps/Time 10x3 Shuttle Balance chains red Details balance and weight shifts: WBOS, staggered feet, side to side Reps/Duration 12' Comments added ball toss into rebounder with feet parallel 8 min Details WBOS, staggard, sideways Reps/Duration 8 min Comments red Therapeutic Exercises Supine Exercises hip flexor stretch Reps/Minutes 30x2 Comments side of mat table HS stretch Equipment Used strap and manual assist Reps/Minutes 30x2 Standing Exercises 1 Standing Exercise Name Calf Stretch Equipment Used JOHN Reps/Minutes 30 x 2 Gait Training Gait Activity uneven surface gait in // bars Description obstacle course Distance/Duration 10'x8 reps Treatment Focus balance Comments balance beam, foam, balanvce pods, 12 box side walking Device Used t-band yellow Surface level Distance/Duration 10x3 Comments constant handhold on rail cues for posture Neuro Re-Education Treatment Balance Activities BOSU lunges Reps/Duration 10x2 PT-OP-S Aquatic Treatment Start: 04/23/19 15:12 Freq: Status: Active Protocol: Document 05/16/19 11:00 JAMIN (Rec: 05/16/19 15:06 JAMIN [id number]) Aquatics Treatment Pool Entry/Exit Pool Entry/Exit Method Stairs Assistance Independent Water Walking figure 8's around boxes Water Level Waist Level Comments 2 boxes forward and back backward step up on box Water Level Waist Level Comments better control this session quick reverses fwd/bck Water Level Chest Level Walking Equipment Resistance Fins Level of Assistance Verbal Cues stairs all directions Water Level Waist Level Comments 6 boxes march, straight leg september Water Level Chest Level Walking Equipment Ankle Weight- 5.0# Level of Assistance Verbal Cues Comments 2 laps fwd,bck,side Water Level Chest Level Walking Equipment Ankle Weight- 5.0# Level of Assistance Verbal Cues Lower Extremity Exercises resisted 90/90 hip ER Body Position Standing Water Level Waist Level Equipment hydroband Reps/Duration 15 bilat Comments band on stair rail and pt ankle HS curls Details standing at wall w/min hand support Body Position Standing Water Level Chest Level Equipment Ankle Weight- 5.0# Reps/Duration 2x10 bilat Comments cues for no hip flexion and erect posture HS curls and kickbacks Details standing at wall w/min hand support Body Position Standing Water Level Chest Level Equipment Ankle Weight- 5.0# Reps/Duration 2x10 bilat Comments cues for no hip flexion and erect posture CC,CCW Details standing at wall w/min hand support Body Position Standing Water Level Chest Level Equipment Ankle Weight- 5.0# Reps/Duration 2x 10 bilat Comments cues for core stab hip flex/ext, ab/ad Details standing at wall w/min hand support Body Position Standing Water Level Chest Level Equipment large resistance fins Reps/Duration 2x10 bilat Lower Extremity Stretches quads Details and hip flex Equipment Large Noodle Reps/Duration 2x1:00 lateral trunk and ITb stretch Body Position Standing Water Level Chest Level Reps/Duration 2 min static hold Comments holding wall hamstring, ITB, add Details at wall Body Position Standing Water Level Chest Level Equipment hydrofit cuffs and 1 lg noodle Reps/Duration [id number] hold Spinal Exercises trunk rotations Body Position Standing Water Level Chest Level Equipment hydroworks lg barbell Reps/Duration 15 each direction Comments verbal and manual cues Paxinos Activities Paxinos Activities Bicycle Duration 8 min PT-OP-T Assessment and Plan Start: 04/23/19 15:12 Freq: Status: Active Protocol: Document 08/20/19 15:15 JAMIN (Rec: 08/20/19 16:14 JAMIN [id number]) Physical Therapy Assessment Goals Gait and bal dysfunction Impairment Dynamic gait index (DGI) 16 Short Term Goal (STG) Decrease fall risk as evidenced by improvement in DGI to at least 20 STG Duration 09/13/19 Correction Goal (LTG) No reported falls, DGI improved to 22/24 LTG Duration 10/29/19 Balance dysfunction Impairment Brown bal score 42/56 Short Term Goal (STG) Decrease fall risk as evidenced by improvement in Brown balance score to at least 48 STG Duration 09/13/19 Correction Goal (LTG) No reported falls, Brown balance score greater than 50 LTG Duration 10/29/19 Recreational Activities 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 LTG Duration 10/29/19 Perceived Disability Impairment Modified Oswestry Score 36% Correction Goal (LTG) Pt will grade overall perceived disability on the Modified Oswestry Questionnaire to 20% or less. LTG Duration 10/29/19 knowledge deficit Correction Goal (LTG) Pt will report good tolerance and compliance to indep aquatic exercise program LTG Duration 10/29/19 Activity tolerance Impairment Oswestry disability index score 57% Short Term Goal (STG) Decrease Oswestry score to no greater than 45% STG Duration Goal MET Correction Goal (LTG) Decrease Oswestry score to no greater than 30% 11/01/18: GOAL PROGRESS 07/30/19: GOAL PROGRESS LTG Duration 10/29/19 weakness Impairment Core and LE weakness Correction Goal (LTG) Pt will have MMT of LE strength graded 4+/5 or greater LTG Duration 10/29/19 pain Impairment 6/10 pain in low back, LLE, right LE Short Term Goal (STG) Pt will report pain 4/10 or less with daily functional activities. STG Duration 09/13/19 Repairer Maintenance Building Goal (LTG) Pt will report pain 2/10 or less with daily functional activities. LTG Duration 10/29/19 Assessment Summary Assessment Pt brought O2 today but did not use it. He experienced slight SOB for 3 min then recovered. Pt did well with balance activities in obstacle course and shuttle balance. Physical Therapy Plan Frequency and Duration Frequency of Treatment 2x/Week Duration of Treatment 8 wks Plan of Care Start Date 07/30/19 Plan of Care End Date 10/29/19 Therapeutic Interventions Therapeutic Interventions Aquatic Therapy,Home Exercise Program,Manual Therapy, Neuromuscular Re-education, Patient/Caregiver Education, Self-Care/Home Management,Soft Tissue Mobilization,Taping, Therapeutic Activities, Therapeutic Exercises Modalities Cold Pack/Ice Massage,Electric Stimulation,Hot Packs, Ultrasound Next Visit Focus/Plan Next Note Type Treatment Note Next Visit Plan Pt has one more visit covered by insurance . He is waiting on authorization for visits after 08/21/19
--- NOTE | 2019-08-24 16:22 | PT.OTN ---
Current Diagnoses Low back pain (08/24/19) Pain in right leg (08/24/19) Pain in left leg (08/24/19) Difficulty in walking, not elsewhere classified (08/24/19) Weakness (08/24/19) Physical Therapy Treatment Note PT-OP-A Visit Information Start: 04/23/19 15:12 Freq: Status: Active Protocol: Document 08/24/19 15:15 LJ (Rec: 08/24/19 16:22 LJ [id number]) Out-Patient Physical Therapy Visit Information Visit Information Visit Type Treatment Note Visit Start Time 15:15 Visit Stop Time 16:00 Total Visit Minutes 45 Visit Number 13 Number of CLOSING MACHINE OPERATOR Visits 2 PT-OP-B Current Condition Start: 04/23/19 15:12 Freq: Status: Active Protocol: Document 04/23/19 15:13 SAK (Rec: 04/23/19 16:05 SAK [id number]) Current Condition History of Current Condition Onset Date 2 yrs Current Complaints LBP History of Current Condition Reports persistent, function- limiting LBP with residual weakness in LE's. Previously having PT with best benefit from aquatic PT but had to discontinue due to medical issues. Underwent spinal decompression 2 years ago with no relief of pain. Has now had second opinion appointment and will be consulting further. Cortisone injection 4 wks ago helpful, has been trying to gradually increase his activity level to not overdo it. Not doing any exercises at home; stating I never sit down at home so am doing a lot of exercises. Found aquatic therapy helpful. Has a tendency to overdo. States he was told this am he has a problem with his liver, has no idea about plan for treatment. Pain is in lumbar spine and into LE's in past. Tingling both feet, reports tests for circulation show no problem. Some numbness bilateral feet. States no reflexes in LE's. Pain anterior left hip since helping a friend clean jacuzzi tub yesterday. Also had increase in pain a couple weeks ago with a day of extensive walking. Prior Treatments and Tests Cortisone injection 4 wks ago, no pain since shot, pain medicaitons, aquatic PT. Future Testing and Treatments Planned Sees orthopedist at [place] in 1 wk to discuss POC. Treatment Goals Patient/Caregiver Goals Strengthen his muscles and be able to resume prior functional level. Requests a couple more PT visits in the pool since he had to discontinue aquatic PT early. 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 PT-OP-D Balance Start: 04/23/19 15:12 Freq: Status: Active Protocol: Document 07/30/19 14:26 SAK (Rec: 07/30/19 16:10 SAK [id number]) Balance Tests Brown Balance Test Brown Balance Test Score 42 PT-OP-E Functional Tests Start: 04/23/19 15:12 Freq: Status: Active Protocol: Document 07/30/19 14:26 SAK (Rec: 07/30/19 16:10 SAK [id number]) Functional Tests Dynamic Gait Index (DGI) Score 16 PT-OP-J Posture/Palpation/Skin Start: 04/23/19 15:12 Freq: Status: Active Protocol: Document 04/23/19 15:13 SAK (Rec: 04/24/19 14:48 SAK [id number]) Posture Evaluation Position Standing Head/C-Spine Posture Forward Head T-Spine Posture Increased Kyphosis L-Spine Posture Increased Lordosis Shoulder Posture (L) Rounded,(R) Rounded,(L) Forward,(R) Forward Pelvis Posture Anteriorly Tilted Hip Posture (L) Externally Rotated,(R) Externally Rotated Palpation Assessment Location anterior left hip Palpation Findings Soft Tissue Tightness, Tenderness piriformis Palpation Findings Soft Tissue Tightness PT-OP-K Range of Motion Start: 04/23/19 15:12 Freq: Status: Active Protocol: Document 07/30/19 14:26 SAK (Rec: 07/30/19 16:10 SAK [id number]) Lumbar Spine Range of Motion Lumbar Spine Active Flexion 40 Extension 15 Lateral Flexion Left 35 Lateral Flexion Right 35 ROM Limitations Soft Tissue Tightness Hip Goniometric Range of Motion Hip Left Straight Leg Raise 55 Right Straight Leg Raise 45 Hip ROM Limitations Hip ROM Limitations Soft Tissue Tightness,Pain Knee Goniometric Range of Motion Knee Left Knee ROM WFL Yes Right Knee ROM WFL Yes Ankle and Foot Goniometric Range of Motion Ankle and Foot renato Dorsiflexion with Knee Flexed 5 Dorsiflexion with Knee Extended 0 Plantarflexion 45 PT-OP-M Strength Start: 04/23/19 15:12 Freq: Status: Active Protocol: Document 07/30/19 14:26 SAK (Rec: 07/30/19 16:10 SAK [id number]) Trunk Strength Trunk Manual Muscle Testing Flexion 4- Good- Extension 4- Good- Hip Strength Hip Manual Muscle Testing Left Flexion (L2) 4 Good Extension (S1) 3- Fair- Abduction 3+ Fair+ External Rotation 4- Good- Internal Rotation 4 Good Right Flexion (L2) 4 Good Extension (S1) 3- Fair- Abduction 4- Good- External Rotation 4- Good- Internal Rotation 4 Good Knee Strength Knee Manual Muscle Testing Left Flexion (S2) 4+ Good+ Extension (L3) 4+ Good+ Right Flexion (S2) 4+ Good+ Extension (L3) 4- Good- Ankle/Foot Strength Ankle and Foot Manual Muscle Testing Left Dorsiflexion (L4) 4- Good- Plantarflexion (S1) 4 Good Right Dorsiflexion (L4) 4+ Good+ Plantarflexion (S1) 4 Good Toe Strength Toe Manual Muscle Testing Left Great Toe Extension 4- Good- Right Great Toe Flexion 4 Good PT-OP-Q Treatments Start: 04/23/19 15:12 Freq: Status: Active Protocol: Document 08/24/19 15:15 JAMIN (Rec: 08/24/19 16:22 LJ [id number]) Cardio Equipment Recumbent Stepper (Sci-Fit) Duration (Minutes) 10 Resistance 5.2 Seat Position 15 Other emphasis on LE alignment Gym Equipment Cable Column (Body Solid) hip ab/ad Resistance #80 abd/ #100 add Reps/Time 2x20 Shuttle Balance chains red Details balance and weight shifts: WBOS, staggered feet, side to side Reps/Duration 12' Comments EC/EO, head turns 8 min Details WBOS, staggard, sideways Reps/Duration 4 min Comments red Therapeutic Exercises Supine Exercises hip flexor stretch Reps/Minutes 30x2 Comments side of mat table HS stretch Equipment Used strap and manual assist Reps/Minutes 30x2 Standing Exercises closed chain hip ab/ad Side bilateral Reps/Minutes 6 min Comments pt had difficulty with coordination 1 Standing Exercise Name Calf Stretch Equipment Used JOHN Reps/Minutes 30 x 2 Comments pressure on pressure off Gait Training Gait Activity side walking Device Used t-band yellow Surface level Distance/Duration 10x3 Comments constant handhold on rail cues for posture // bar step to load LLE Description single step forward onto LLE then stabilize Surface level Treatment Focus hip stabilization; reduce Tberg gait Neuro Re-Education Treatment Balance Activities tandem stand and tandem gait Reps/Duration 4 min Comments CG to min assist PT-OP-S Aquatic Treatment Start: 04/23/19 15:12 Freq: Status: Active Protocol: Document 05/16/19 11:00 JAMIN (Rec: 05/16/19 15:06 [id number]) Aquatics Treatment Pool Entry/Exit Pool Entry/Exit Method Stairs Assistance Independent Water Walking figure 8's around boxes Water Level Waist Level Comments 2 boxes forward and back backward step up on box Water Level Waist Level Comments better control this session quick reverses fwd/bck Water Level Chest Level Walking Equipment Resistance Fins Level of Assistance Verbal Cues stairs all directions Water Level Waist Level Comments 6 boxes march, straight leg march Water Level Chest Level Walking Equipment Ankle Weight- 5.0# Level of Assistance Verbal Cues Comments 2 laps fwd,bck,side Water Level Chest Level Walking Equipment Ankle Weight- 5.0# Level of Assistance Verbal Cues Lower Extremity Exercises resisted 90/90 hip ER Body Position Standing Water Level Waist Level Equipment hydroband Reps/Duration 15 bilat Comments band on stair rail and pt ankle HS curls Details standing at wall w/min hand support Body Position Standing Water Level Chest Level Equipment Ankle Weight- 5.0# Reps/Duration 2x10 bilat Comments cues for no hip flexion and erect posture HS curls and kickbacks Details standing at wall w/min hand support Body Position Standing Water Level Chest Level Equipment Ankle Weight- 5.0# Reps/Duration 2x10 bilat Comments cues for no hip flexion and erect posture CC,CCW Details standing at wall w/min hand support Body Position Standing Water Level Chest Level Equipment Ankle Weight- 5.0# Reps/Duration 2x 10 bilat Comments cues for core stab hip flex/ext, ab/ad Details standing at wall w/min hand support Body Position Standing Water Level Chest Level Equipment large resistance fins Reps/Duration 2x10 bilat Lower Extremity Stretches quads Details and hip flex Equipment Large Noodle Reps/Duration 2x1:00 lateral trunk and ITb stretch Body Position Standing Water Level Chest Level Reps/Duration 2 min static hold Comments holding wall hamstring, ITB, add Details at wall Body Position Standing Water Level Chest Level Equipment hydrofit cuffs and 1 lg noodle Reps/Duration [id number] hold Spinal Exercises trunk rotations Body Position Standing Water Level Chest Level Equipment hydroworks lg barbell Reps/Duration 15 each direction Comments verbal and manual cues [place] Activities [place] Activities Bicycle Duration 8 min PT-OP-T Assessment and Plan Start: 04/23/19 15:12 Freq: Status: Active Protocol: Document 08/24/19 15:15 JAMIN (Rec: 08/24/19 16:22 JAMIN [id number]) Physical Therapy Assessment Goals Gait and bal dysfunction Impairment Dynamic gait index (DGI) Short Term Goal (STG) Decrease fall risk as evidenced by improvement in DGI to at least 20 STG Duration 09/13/19 Halfway Goal (LTG) No reported falls, DGI improved to 22/24 LTG Duration 10/29/19 Balance dysfunction Impairment Brown bal score 42/56 Short Term Goal (STG) Decrease fall risk as evidenced by improvement in Brown balance score to at least 48 STG Duration 09/13/19 Halfway Goal (LTG) No reported falls, Brown balance score greater than 50 LTG Duration 10/29/19 Recreational Activities 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 LTG Duration 10/29/19 Perceived Disability Impairment Modified Oswestry Score 36% Barrel Rifler Operator Goal (LTG) Pt will grade overall perceived disability on the Modified Oswestry Questionnaire to 20% or less. LTG Duration 10/29/19 knowledge deficit Barrel Rifler Operator Goal (LTG) Pt will report good tolerance and compliance to indep aquatic exercise program LTG Duration 10/29/19 Activity tolerance Impairment Oswestry disability index score 57% Short Term Goal (STG) Decrease Oswestry score to no greater than 45% STG Duration Goal MET Barrel Rifler Operator Goal (LTG) Decrease Oswestry score to no greater than 30% 11/01/18: GOAL PROGRESS 07/30/19: GOAL PROGRESS LTG Duration 10/29/19 weakness Impairment Core and LE weakness Barrel Rifler Operator Goal (LTG) Pt will have MMT of LE strength graded 4+/5 or greater LTG Duration 10/29/19 pain Impairment 6/10 pain in low back, LLE, right LE Short Term Goal (STG) Pt will report pain 4/10 or less with daily functional activities. STG Duration 09/13/19 Halfway Goal (LTG) Pt will report pain 2/10 or less with daily functional activities. LTG Duration 10/29/19 Assessment Summary Assessment Pt had difficulty with CKC hip ab/ad coordination exercise. Also many LOB in // bars with tandem gait practise. Physical Therapy Plan Frequency and Duration Frequency of Treatment 2x/Week Duration of Treatment 8 wks Plan of Care Start Date 07/30/19 Plan of Care End Date 10/29/19 Therapeutic Interventions Therapeutic Interventions Aquatic Therapy,Home Exercise Program,Manual Therapy, Neuromuscular Re-education, Patient/Caregiver Education, Self-Care/Home Management,Soft Tissue Mobilization,Taping, Therapeutic Activities, Therapeutic Exercises Modalities Cold Pack/Ice Massage,Electric Stimulation,Hot Packs, Ultrasound Next Visit Focus/Plan Next Note Type Treatment Note Next Visit Plan Progress standing balance and glute strength. Work on coordination of squats and CKC hip ab/ad for improvement in gait and balance
--- NOTE | 2019-08-27 15:25 | PT.OTN ---
Current Diagnoses Low back pain (08/27/19) Pain in right leg (08/27/19) Pain in left leg (08/27/19) Difficulty in walking, not elsewhere classified (08/27/19) Weakness (08/27/19) Physical Therapy Treatment Note PT-OP-A Visit Information Start: 04/23/19 15:12 Freq: Status: Active Protocol: Document 08/27/19 14:38 RB (Rec: 08/27/19 16:14 RB [id number]) Out-Patient Physical Therapy Visit Information Visit Information Visit Type Treatment Note Visit Note supervised by Rowena RISK MGR Visit Start Time 14:38 Visit Stop Time 15:25 Total Visit Minutes 47 Visit Number 14 Number of RISK MGR Visits 3 PT-OP-B Current Condition Start: 04/23/19 15:12 Freq: Status: Active Protocol: Document 04/23/19 15:13 SAK (Rec: 04/23/19 16:05 SAK [id number]) Current Condition History of Current Condition Onset Date 2 yrs Current Complaints LBP History of Current Condition Reports persistent, function- limiting LBP with residual weakness in LE's. Previously having PT with best benefit from aquatic PT but had to discontinue due to medical issues. Underwent spinal decompression 2 years ago with no relief of pain. Has now had second opinion appointment and will be consulting further. Cortisone injection 4 wks ago helpful, has been trying to gradually increase his activity level to not overdo it. Not doing any exercises at home; stating I never sit down at home so am doing a lot of exercises. Found aquatic therapy helpful. Has a tendency to overdo. States he was told this am he has a problem with his liver, has no idea about plan for treatment. Pain is in lumbar spine and into LE's in past. Tingling both feet, reports tests for circulation show no problem. Some numbness bilateral feet. States no reflexes in LE's. Pain anterior left hip since helping a friend clean jacuzzi tub yesterday. Also had increase in pain a couple weeks ago with a day of extensive walking. Prior Treatments and Tests Cortisone injection 4 wks ago, no pain since shot, pain medicaitons, aquatic PT. Future Testing and Treatments Planned Sees orthopedist at [place] in 1 wk to discuss POC. Treatment Goals Patient/Caregiver Goals Strengthen his muscles and be able to resume prior functional level. Requests a couple more PT visits in the pool since he had to discontinue aquatic PT early. 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 He stated tired leg muscles priamarly in L upper thigh PT-OP-D Balance Start: 04/23/19 15:12 Freq: Status: Active Protocol: Document 07/30/19 14:26 SAK (Rec: 07/30/19 16:10 [facility] [id number]) Balance Tests Brown Balance Test Brown Balance Test Score 42 PT-OP-E Functional Tests Start: 04/23/19 15:12 Freq: Status: Active Protocol: Document 07/30/19 14:26 SAK (Rec: 07/30/19 16:10 [facility] [id number]) Functional Tests Dynamic Gait Index (DGI) Score 16 PT-OP-J Posture/Palpation/Skin Start: 04/23/19 15:12 Freq: Status: Active Protocol: Document 04/23/19 15:13 [facility] (Rec: 04/24/19 14:48 [facility] [id number]) Posture Evaluation Position Standing Head/C-Spine Posture Forward Head T-Spine Posture Increased Kyphosis L-Spine Posture Increased Lordosis Shoulder Posture (L) Rounded,(R) Rounded,(L) Forward,(R) Forward Pelvis Posture Anteriorly Tilted Hip Posture (L) Externally Rotated,(R) Externally Rotated Palpation Assessment Location anterior left hip Palpation Findings Soft Tissue Tightness, Tenderness piriformis Palpation Findings Soft Tissue Tightness PT-OP-K Range of Motion Start: 04/23/19 15:12 Freq: Status: Active Protocol: Document 07/30/19 14:26 SAK (Rec: 07/30/19 16:10 [facility] [id number]) Lumbar Spine Range of Motion Lumbar Spine Active Flexion 40 Extension 15 Lateral Flexion Left 35 Lateral Flexion Right 35 ROM Limitations Soft Tissue Tightness Hip Goniometric Range of Motion Hip Left Straight Leg Raise 55 Right Straight Leg Raise 45 Hip ROM Limitations Hip ROM Limitations Soft Tissue Tightness,Pain Knee Goniometric Range of Motion Knee Left Knee ROM WFL Yes Right Knee ROM WFL Yes Ankle and Foot Goniometric Range of Motion Ankle and Foot renato Dorsiflexion with Knee Flexed 5 Dorsiflexion with Knee Extended 0 Plantarflexion 45 PT-OP-M Strength Start: 04/23/19 15:12 Freq: Status: Active Protocol: Document 07/30/19 14:26 [facility] (Rec: 07/30/19 16:10 [facility] [id number]) Trunk Strength Trunk Manual Muscle Testing Flexion 4- Good- Extension 4- Good- Hip Strength Hip Manual Muscle Testing Left Flexion (L2) 4 Good Extension (S1) 3- Fair- Abduction 3+ Fair+ External Rotation 4- Good- Internal Rotation 4 Good Right Flexion (L2) 4 Good Extension (S1) 3- Fair- Abduction 4- Good- External Rotation 4- Good- Internal Rotation 4 Good Knee Strength Knee Manual Muscle Testing Left Flexion (S2) 4+ Good+ Extension (L3) 4+ Good+ Right Flexion (S2) 4+ Good+ Extension (L3) 4- Good- Ankle/Foot Strength Ankle and Foot Manual Muscle Testing Left Dorsiflexion (L4) 4- Good- Plantarflexion (S1) 4 Good Right Dorsiflexion (L4) 4+ Good+ Plantarflexion (S1) 4 Good Toe Strength Toe Manual Muscle Testing Left Great Toe Extension 4- Good- Right Great Toe Flexion 4 Good PT-OP-Q Treatments Start: 04/23/19 15:12 Freq: Status: Active Protocol: Document 08/27/19 14:38 RB (Rec: 08/27/19 16:14 RB [email or web address]) Cardio Equipment Recumbent Stepper (Sci-Fit) Duration (Minutes) 10 Resistance 6 Seat Position 15 Other 1.5 miles Gym Equipment Shuttle Recovery Unilateral Squats Resistance 75 Shuttle Recovery Platform Stable Reps/Time 10x2 Bilateral Squats Resistance 125 Shuttle Recovery Platform Stable Reps/Time 10x2 Shuttle Balance chains red Details balance and weight shifts: WBOS, staggered feet, side to side Reps/Duration 12' Comments EC/EO, head turns narrow [place], stager stance Therapeutic Exercises Standing Exercises Sit to stand Equipment Used Chair w/ foam pad Reps/Minutes 10x2 Comments cued for hip hinge and pressing through heels closed chain hip ab/ad Standing Exercise Name f/b, ab/ad Side left Equipment Used 2 inch, 4 inch box Reps/Minutes 15 min Comments cued for r hip drop 1 Standing Exercise Name Calf Stretch Equipment Used JOHN Reps/Minutes 30 x 2 Comments pressure on pressure off Gait Training Gait Activity side walking Device Used AROM Surface level Distance/Duration 10x3 Comments cued level pelvis, upright posture, slow pacing PT-OP-S Aquatic Treatment Start: 04/23/19 15:12 Freq: Status: Active Protocol: Document 05/16/19 11:00 JAMIN (Rec: 05/16/19 15:06 JAMIN [id number]) Aquatics Treatment Pool Entry/Exit Pool Entry/Exit Method Stairs Assistance Independent Water Walking figure 8's around boxes Water Level Waist Level Comments 2 boxes forward and back backward step up on box Water Level Waist Level Comments better control this session quick reverses fwd/bck Water Level Chest Level Walking Equipment Resistance Fins Level of Assistance Verbal Cues stairs all directions Water Level Waist Level Comments 6 boxes march, straight leg september Water Level Chest Level Walking Equipment Ankle Weight- 5.0# Level of Assistance Verbal Cues Comments 2 laps fwd,bck,side Water Level Chest Level Walking Equipment Ankle Weight- 5.0# Level of Assistance Verbal Cues Lower Extremity Exercises resisted 90/90 hip ER Body Position Standing Water Level Waist Level Equipment hydroband Reps/Duration 15 bilat Comments band on stair rail and pt ankle HS curls Details standing at wall w/min hand support Body Position Standing Water Level Chest Level Equipment Ankle Weight- 5.0# Reps/Duration 2x10 bilat Comments cues for no hip flexion and erect posture HS curls and kickbacks Details standing at wall w/min hand support Body Position Standing Water Level Chest Level Equipment Ankle Weight- 5.0# Reps/Duration 2x10 bilat Comments cues for no hip flexion and erect posture CC,CCW Details standing at wall w/min hand support Body Position Standing Water Level Chest Level Equipment Ankle Weight- 5.0# Reps/Duration 2x 10 bilat Comments cues for core stab hip flex/ext, ab/ad Details standing at wall w/min hand support Body Position Standing Water Level Chest Level Equipment large resistance fins Reps/Duration 2x10 bilat Lower Extremity Stretches quads Details and hip flex Equipment Large Noodle Reps/Duration 2x1:00 lateral trunk and ITb stretch Body Position Standing Water Level Chest Level Reps/Duration 2 min static hold Comments holding wall hamstring, ITB, add Details at wall Body Position Standing Water Level Chest Level Equipment hydrofit cuffs and 1 lg noodle Reps/Duration [id number] hold Spinal Exercises trunk rotations Body Position Standing Water Level Chest Level Equipment hydroworks lg barbell Reps/Duration 15 each direction Comments verbal and manual cues [place] Activities [place] Activities Bicycle Duration 8 min PT-OP-T Assessment and Plan Start: 04/23/19 15:12 Freq: Status: Active Protocol: Document 08/27/19 14:38 RB (Rec: 08/27/19 16:14 RB [email or web address]) Physical Therapy Assessment Assessment Summary Assessment Educated the pt. on importance of a therapist presence before starting tx. Pt. had difficulty with CKC hip f/b and ab/ad exercises, improved post cues level pelvis, increased stance time on L glute facilitation. Pt. demonstrated increased strenght and endurance with noted increased resistance and distance, able to complete in 10 min. Pt. demonstraed decrease trendelenburg on left when leaving Physical Therapy Plan Next Visit Focus/Plan Next Note Type Treatment Note Next Visit Plan Assess response to last tx. Added side and forward stepping step for glut facilitation. Instructed added side stepping to HEP at counter x4 laps. Continue per PT POC: Progress hip ab/ad strengthening for hip drop. Work on posture when balancing .
--- NOTE | 2019-08-31 15:05 | PT.OTN ---
Current Diagnoses Low back pain (08/31/19) Pain in right leg (08/31/19) Pain in left leg (08/31/19) Difficulty in walking, not elsewhere classified (08/31/19) Weakness (08/31/19) Physical Therapy Treatment Note PT-OP-A Visit Information Start: 04/23/19 15:12 Freq: Status: Active Protocol: Document 08/31/19 14:14 SP (Rec: 08/31/19 15:37 SP [id number]) Out-Patient Physical Therapy Visit Information Visit Information Visit Type Treatment Note Visit Start Time 14:15 Visit Stop Time 15:05 Total Visit Minutes 50 Visit Number 15 Number of CLINICAL LAW PROFESSOR Visits 4 PT-OP-B Current Condition Start: 04/23/19 15:12 Freq: Status: Active Protocol: Document 04/23/19 15:13 SAK (Rec: 04/23/19 16:05 SAK [id number]) Current Condition History of Current Condition Onset Date 2 yrs Current Complaints LBP History of Current Condition Reports persistent, function- limiting LBP with residual weakness in LE's. Previously having PT with best benefit from aquatic PT but had to discontinue due to medical issues. Underwent spinal decompression 2 years ago with no relief of pain. Has now had second opinion appointment and will be consulting further. Cortisone injection 4 wks ago helpful, has been trying to gradually increase his activity level to not overdo it. Not doing any exercises at home; stating I never sit down at home so am doing a lot of exercises. Found aquatic therapy helpful. Has a tendency to overdo. States he was told this am he has a problem with his liver, has no idea about plan for treatment. Pain is in lumbar spine and into LE's in past. Tingling both feet, reports tests for circulation show no problem. Some numbness bilateral feet. States no reflexes in LE's. Pain anterior left hip since helping a friend clean jacuzzi tub yesterday. Also had increase in pain a couple weeks ago with a day of extensive walking. Prior Treatments and Tests Cortisone injection 4 wks ago, no pain since shot, pain medicaitons, aquatic PT. Future Testing and Treatments Planned Sees orthopedist at [place] in 1 wk to discuss POC. Treatment Goals Patient/Caregiver Goals Strengthen his muscles and be able to resume prior functional level. Requests a couple more PT visits in the pool since he had to discontinue aquatic PT early. 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 PT-OP-D Balance Start: 04/23/19 15:12 Freq: Status: Active Protocol: Document 07/30/19 14:26 SAK (Rec: 07/30/19 16:10 SAK [id number]) Balance Tests Rbown Balance Test Brown Balance Test Score 42 PT-OP-E Functional Tests Start: 04/23/19 15:12 Freq: Status: Active Protocol: Document 07/30/19 14:26 SAK (Rec: 07/30/19 16:10 SAK [id number]) Functional Tests Dynamic Gait Index (DGI) Score 16 PT-OP-J Posture/Palpation/Skin Start: 04/23/19 15:12 Freq: Status: Active Protocol: Document 04/23/19 15:13 SAK (Rec: 04/24/19 14:48 SAK [id number]) Posture Evaluation Position Standing Head/C-Spine Posture Forward Head T-Spine Posture Increased Kyphosis L-Spine Posture Increased Lordosis Shoulder Posture (L) Rounded,(R) Rounded,(L) Forward,(R) Forward Pelvis Posture Anteriorly Tilted Hip Posture (L) Externally Rotated,(R) Externally Rotated Palpation Assessment Location anterior left hip Palpation Findings Soft Tissue Tightness, Tenderness piriformis Palpation Findings Soft Tissue Tightness PT-OP-K Range of Motion Start: 04/23/19 15:12 Freq: Status: Active Protocol: Document 07/30/19 14:26 SAK (Rec: 07/30/19 16:10 SAK [id number]) Lumbar Spine Range of Motion Lumbar Spine Active Flexion 40 Extension 15 Lateral Flexion Left 35 Lateral Flexion Right 35 ROM Limitations Soft Tissue Tightness Hip Goniometric Range of Motion Hip Left Straight Leg Raise 55 Right Straight Leg Raise 45 Hip ROM Limitations Hip ROM Limitations Soft Tissue Tightness,Pain Knee Goniometric Range of Motion Knee Left Knee ROM WFL Yes Right Knee ROM WFL Yes Ankle and Foot Goniometric Range of Motion Ankle and Foot renato Dorsiflexion with Knee Flexed 5 Dorsiflexion with Knee Extended 0 Plantarflexion 45 PT-OP-M Strength Start: 04/23/19 15:12 Freq: Status: Active Protocol: Document 07/30/19 14:26 SAK (Rec: 07/30/19 16:10 SAK [id number]) Trunk Strength Trunk Manual Muscle Testing Flexion 4- Good- Extension 4- Good- Hip Strength Hip Manual Muscle Testing Left Flexion (L2) 4 Good Extension (S1) 3- Fair- Abduction 3+ Fair+ External Rotation 4- Good- Internal Rotation 4 Good Right Flexion (L2) 4 Good Extension (S1) 3- Fair- Abduction 4- Good- External Rotation 4- Good- Internal Rotation 4 Good Knee Strength Knee Manual Muscle Testing Left Flexion (S2) 4+ Good+ Extension (L3) 4+ Good+ Right Flexion (S2) 4+ Good+ Extension (L3) 4- Good- Ankle/Foot Strength Ankle and Foot Manual Muscle Testing Left Dorsiflexion (L4) 4- Good- Plantarflexion (S1) 4 Good Right Dorsiflexion (L4) 4+ Good+ Plantarflexion (S1) 4 Good Toe Strength Toe Manual Muscle Testing Left Great Toe Extension 4- Good- Right Great Toe Flexion 4 Good PT-OP-Q Treatments Start: 04/23/19 15:12 Freq: Status: Active Protocol: Document 08/31/19 14:14 SP (Rec: 08/31/19 15:37 SP [id number]) Cardio Equipment Recumbent Stepper (Sci-Fit) Duration (Minutes) 10 Resistance 6 Seat Position 13 Other 2 miles Gym Equipment Shuttle Recovery Unilateral Squats Resistance 75 Shuttle Recovery Platform Stable Reps/Time 17x2 Bilateral Squats Resistance 125 Shuttle Recovery Platform Stable Reps/Time 10x3 Shuttle Balance chains red Details balance and weight shifts: WBOS, staggered feet, side to side Reps/Duration 12' Comments EC/EO, head turns narrow [place], stager stance Therapeutic Exercises Supine Exercises Trunk rotation LS Side bilateral Reps/Minutes 30 x3 hip flexor stretch Supine Exercise Name Simone Side bilateral Reps/Minutes 30x2 Comments side of mat table, knee flexion after 10 sec if ok usign strap SKTC Side bilateral Reps/Minutes 30x2 Standing Exercises closed chain hip ab/ad Standing Exercise Name f/b, ab/ad step up/downs Side left Resistance 5# leg wt Equipment Used 4 inch box Reps/Minutes 2x10 Comments cued for r hip drop 1 Standing Exercise Name Calf Stretch Equipment Used JOHN Reps/Minutes 30 x 2 and rocking Comments pressure on pressure off Neuro Re-Education Treatment Balance Activities BOSU lunges Details balance on flat Comments wt shift f/ neutral and mini squat hurdlesw Details open area Surface floor Equipment hurdles Reps/Duration 10x2 Comments step to and step over step, cued slow pacing level pelvis PT-OP-S Aquatic Treatment Start: 04/23/19 15:12 Freq: Status: Active Protocol: Document 05/16/19 11:00 JAMIN (Rec: 05/16/19 15:06 [id number]) Aquatics Treatment Pool Entry/Exit Pool Entry/Exit Method Stairs Assistance Independent Water Walking figure 8's around boxes Water Level Waist Level Comments 2 boxes forward and back backward step up on box Water Level Waist Level Comments better control this session quick reverses fwd/bck Water Level Chest Level Walking Equipment Resistance Fins Level of Assistance Verbal Cues stairs all directions Water Level Waist Level Comments 6 boxes march, straight leg september Water Level Chest Level Walking Equipment Ankle Weight- 5.0# Level of Assistance Verbal Cues Comments 2 laps fwd,bck,side Water Level Chest Level Walking Equipment Ankle Weight- 5.0# Level of Assistance Verbal Cues Lower Extremity Exercises resisted 90/90 hip ER Body Position Standing Water Level Waist Level Equipment hydroband Reps/Duration 15 bilat Comments band on stair rail and pt ankle HS curls Details standing at wall w/min hand support Body Position Standing Water Level Chest Level Equipment Ankle Weight- 5.0# Reps/Duration 2x10 bilat Comments cues for no hip flexion and erect posture HS curls and kickbacks Details standing at wall w/min hand support Body Position Standing Water Level Chest Level Equipment Ankle Weight- 5.0# Reps/Duration 2x10 bilat Comments cues for no hip flexion and erect posture CC,CCW Details standing at wall w/min hand support Body Position Standing Water Level Chest Level Equipment Ankle Weight- 5.0# Reps/Duration 2x 10 bilat Comments cues for core stab hip flex/ext, ab/ad Details standing at wall w/min hand support Body Position Standing Water Level Chest Level Equipment large resistance fins Reps/Duration 2x10 bilat Lower Extremity Stretches quads Details and hip flex Equipment Large Noodle Reps/Duration 2x1:00 lateral trunk and ITb stretch Body Position Standing Water Level Chest Level Reps/Duration 2 min static hold Comments holding wall hamstring, ITB, add Details at wall Body Position Standing Water Level Chest Level Equipment hydrofit cuffs and 1 lg noodle Reps/Duration [id number] hold Spinal Exercises trunk rotations Body Position Standing Water Level Chest Level Equipment hydroworks lg barbell Reps/Duration 15 each direction Comments verbal and manual cues [place] Activities [place] Activities Bicycle Duration 8 min PT-OP-T Assessment and Plan Start: 04/23/19 15:12 Freq: Status: Active Protocol: Document 08/31/19 14:14 SP (Rec: 08/31/19 15:37 SP [id number]) Physical Therapy Assessment Goals Gait and bal dysfunction Impairment Dynamic gait index (DGI) 16 Short Term Goal (STG) Decrease fall risk as evidenced by improvement in DGI to at least 20 STG Duration 09/13/19 Shelter Goal (LTG) No reported falls, DGI improved to 22/24 LTG Duration 10/29/19 Balance dysfunction Impairment Brown bal score 42/56 Short Term Goal (STG) Decrease fall risk as evidenced by improvement in Brown balance score to at least 48 STG Duration 09/13/19 Shelter Goal (LTG) No reported falls, Brown balance score greater than 50 LTG Duration 10/29/19 Recreational Activities 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 LTG Duration 10/29/19 Perceived Disability Impairment Modified Oswestry Score 36% Shelter Goal (LTG) Pt will grade overall perceived disability on the Modified Oswestry Questionnaire to 20% or less. LTG Duration 10/29/19 knowledge deficit Horse Identifier Goal (LTG) Pt will report good tolerance and compliance to indep aquatic exercise program LTG Duration 10/29/19 Activity tolerance Impairment Oswestry disability index score 57% Short Term Goal (STG) Decrease Oswestry score to no greater than 45% STG Duration Goal MET Shelter Goal (LTG) Decrease Oswestry score to no greater than 30% 11/01/18: GOAL PROGRESS 07/30/19: GOAL PROGRESS LTG Duration 10/29/19 weakness Impairment Core and LE weakness Horse Identifier Goal (LTG) Pt will have MMT of LE strength graded 4+/5 or greater LTG Duration 10/29/19 pain Impairment 6/10 pain in low back, LLE, right LE Short Term Goal (STG) Pt will report pain 4/10 or less with daily functional activities. STG Duration 09/13/19 Horse Identifier Goal (LTG) Pt will report pain 2/10 or less with daily functional activities. LTG Duration 10/29/19 Assessment Summary Assessment Pt found using [employer] bike pre treatment. Educated about safety and wanting him to wait for a therapist to start tx. Tx focused on hip strengthening and balance to improve level pelvis durign gait with + results, cued for self awareness and slower pacing to decrease masking L hip and R knee weakness. Pt reported LB had little discomfrot during Shuttle balance but much better post stretching end of tx. Physical Therapy Plan Frequency and Duration Frequency of Treatment 2x/Week Duration of Treatment 8 wks Plan of Care Start Date 07/30/19 Plan of Care End Date 10/29/19 Therapeutic Interventions Therapeutic Interventions Aquatic Therapy,Home Exercise Program,Manual Therapy, Neuromuscular Re-education, Patient/Caregiver Education, Self-Care/Home Management,Soft Tissue Mobilization,Taping, Therapeutic Activities, Therapeutic Exercises Modalities Cold Pack/Ice Massage,Electric Stimulation,Hot Packs, Ultrasound Next Visit Focus/Plan Next Note Type Treatment Note Next Visit Plan Progress hip ab/ad strengthening and standing balance. for hip drop. Work on posture when balancing.
--- NOTE | 2019-09-03 15:32 | PT.OTN ---
Current Diagnoses Low back pain (09/03/19) Pain in right leg (09/03/19) Pain in left leg (09/03/19) Difficulty in walking, not elsewhere classified (09/03/19) Weakness (09/03/19) Physical Therapy Treatment Note PT-OP-A Visit Information Start: 04/23/19 15:12 Freq: Status: Active Protocol: Document 09/03/19 14:30 SP (Rec: 09/03/19 15:40 SP [id number]) Out-Patient Physical Therapy Visit Information Visit Information Visit Type Treatment Note Visit Start Time 14:20 Visit Stop Time 15:32 Total Visit Minutes 72 Visit Number 16 Number of DIRECTOR OF TEACHER EDUCATION Visits 5 PT-OP-B Current Condition Start: 04/23/19 15:12 Freq: Status: Active Protocol: Document 04/23/19 15:13 SAK (Rec: 04/23/19 16:05 SAK [id number]) Current Condition History of Current Condition Onset Date 2 yrs Current Complaints LBP History of Current Condition Reports persistent, function- limiting LBP with residual weakness in LE's. Previously having PT with best benefit from aquatic PT but had to discontinue due to medical issues. Underwent spinal decompression 2 years ago with no relief of pain. Has now had second opinion appointment and will be consulting further. Cortisone injection 4 wks ago helpful, has been trying to gradually increase his activity level to not overdo it. Not doing any exercises at home; stating I never sit down at home so am doing a lot of exercises. Found aquatic therapy helpful. Has a tendency to overdo. States he was told this am he has a problem with his liver, has no idea about plan for treatment. Pain is in lumbar spine and into LE's in past. Tingling both feet, reports tests for circulation show no problem. Some numbness bilateral feet. States no reflexes in LE's. Pain anterior left hip since helping a friend clean jacuzzi tub yesterday. Also had increase in pain a couple weeks ago with a day of extensive walking. Prior Treatments and Tests Cortisone injection 4 wks ago, no pain since shot, pain medicaitons, aquatic PT. Future Testing and Treatments Planned Sees orthopedist at [place] in 1 wk to discuss POC. Treatment Goals Patient/Caregiver Goals Strengthen his muscles and be able to resume prior functional level. Requests a couple more PT visits in the pool since he had to discontinue aquatic PT early. 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 PT-OP-D Balance Start: 04/23/19 15:12 Freq: Status: Active Protocol: Document 07/30/19 14:26 SAK (Rec: 07/30/19 16:10 SAK [id number]) Balance Tests Brown Balance Test Brown Balance Test Score 42 PT-OP-E Functional Tests Start: 04/23/19 15:12 Freq: Status: Active Protocol: Document 07/30/19 14:26 SAK (Rec: 07/30/19 16:10 SAK [id number]) Functional Tests Dynamic Gait Index (DGI) Score 16 PT-OP-J Posture/Palpation/Skin Start: 04/23/19 15:12 Freq: Status: Active Protocol: Document 04/23/19 15:13 SAK (Rec: 04/24/19 14:48 [facility] [id number]) Posture Evaluation Position Standing Head/C-Spine Posture Forward Head T-Spine Posture Increased Kyphosis L-Spine Posture Increased Lordosis Shoulder Posture (L) Rounded,(R) Rounded,(L) Forward,(R) Forward Pelvis Posture Anteriorly Tilted Hip Posture (L) Externally Rotated,(R) Externally Rotated Palpation Assessment Location anterior left hip Palpation Findings Soft Tissue Tightness, Tenderness piriformis Palpation Findings Soft Tissue Tightness PT-OP-K Range of Motion Start: 04/23/19 15:12 Freq: Status: Active Protocol: Document 07/30/19 14:26 SAK (Rec: 07/30/19 16:10 [facility] [id number]) Lumbar Spine Range of Motion Lumbar Spine Active Flexion 40 Extension 15 Lateral Flexion Left 35 Lateral Flexion Right 35 ROM Limitations Soft Tissue Tightness Hip Goniometric Range of Motion Hip Left Straight Leg Raise 55 Right Straight Leg Raise 45 Hip ROM Limitations Hip ROM Limitations Soft Tissue Tightness,Pain Knee Goniometric Range of Motion Knee Left Knee ROM WFL Yes Right Knee ROM WFL Yes Ankle and Foot Goniometric Range of Motion Ankle and Foot renato Dorsiflexion with Knee Flexed 5 Dorsiflexion with Knee Extended 0 Plantarflexion 45 PT-OP-M Strength Start: 04/23/19 15:12 Freq: Status: Active Protocol: Document 07/30/19 14:26 SAK (Rec: 07/30/19 16:10 [facility] [id number]) Trunk Strength Trunk Manual Muscle Testing Flexion 4- Good- Extension 4- Good- Hip Strength Hip Manual Muscle Testing Left Flexion (L2) 4 Good Extension (S1) 3- Fair- Abduction 3+ Fair+ External Rotation 4- Good- Internal Rotation 4 Good Right Flexion (L2) 4 Good Extension (S1) 3- Fair- Abduction 4- Good- External Rotation 4- Good- Internal Rotation 4 Good Knee Strength Knee Manual Muscle Testing Left Flexion (S2) 4+ Good+ Extension (L3) 4+ Good+ Right Flexion (S2) 4+ Good+ Extension (L3) 4- Good- Ankle/Foot Strength Ankle and Foot Manual Muscle Testing Left Dorsiflexion (L4) 4- Good- Plantarflexion (S1) 4 Good Right Dorsiflexion (L4) 4+ Good+ Plantarflexion (S1) 4 Good Toe Strength Toe Manual Muscle Testing Left Great Toe Extension 4- Good- Right Great Toe Flexion 4 Good PT-OP-Q Treatments Start: 04/23/19 15:12 Freq: Status: Active Protocol: Document 09/03/19 14:30 SP (Rec: 09/03/19 15:40 SP [id number]) Cardio Equipment Recumbent Stepper (Sci-Fit) Duration (Minutes) 11 Resistance 6.5 Seat Position 16 Other 2.2 Gym Equipment Shuttle Balance chains red Details balance and weight shifts: WBOS, staggered feet, side to side Reps/Duration 10 Comments EC/EO, head turns narrow [place], stager stance Therapeutic Exercises Supine Exercises Trunk rotation LS Side bilateral Reps/Minutes 30 x3 Comments stated popped in LB and pain went away hip flexor stretch Supine Exercise Name Simone Side bilateral Equipment Used strap Reps/Minutes 30x2 Comments side of mat table, knee flexion after 10 sec if ok usign strap Standing Exercises 1 Standing Exercise Name Calf Stretch Equipment Used JOHN Reps/Minutes 30 x 2 and rocking Comments pressure on pressure off Manual Therapy Treatment Soft Tissue Mobilization TFL, glut med, PF Body Location L Mobilization Type Cross-Friction,Sustained Pressure Intensity/Depth Moderate ITB Body Location LLE ITB Mobilization Type Instrument Assisted Intensity/Depth Moderate Body Position Sidelying Comments Knees bent, pillow between knees Joint Mobilizations L hip mobes Direction lat/ inferior Grade II Body Position Supine Reps/Duration x5 each direction Comments no significant change Manual Traction long axis L leg pull Body Position Supine Reps/Duration 20 sec x2 PT-OP-R Modalities Start: 04/23/19 15:12 Freq: Status: Active Protocol: Document 09/03/19 14:20 SP (Rec: 09/03/19 15:41 SP [id number]) Hot Pack/Cold Pack Treatment L hip Location L hip Patient Position Sidelying Treatment Duration (minutes) 10 Patient Tolerance Good Comments decreased Lhip pain from 8/10 to 4/10. PT-OP-S Aquatic Treatment Start: 04/23/19 15:12 Freq: Status: Active Protocol: Document 05/16/19 11:00 LJ (Rec: 05/16/19 15:06 LJ [id number]) Aquatics Treatment Pool Entry/Exit Pool Entry/Exit Method Stairs Assistance Independent Water Walking figure 8's around boxes Water Level Waist Level Comments 2 boxes forward and back backward step up on box Water Level Waist Level Comments better control this session quick reverses fwd/bck Water Level Chest Level Walking Equipment Resistance Fins Level of Assistance Verbal Cues stairs all directions Water Level Waist Level Comments 6 boxes march, straight leg march Water Level Chest Level Walking Equipment Ankle Weight- 5.0# Level of Assistance Verbal Cues Comments 2 laps fwd,bck,side Water Level Chest Level Walking Equipment Ankle Weight- 5.0# Level of Assistance Verbal Cues Lower Extremity Exercises resisted 90/90 hip ER Body Position Standing Water Level Waist Level Equipment hydroband Reps/Duration 15 bilat Comments band on stair rail and pt ankle HS curls Details standing at wall w/min hand support Body Position Standing Water Level Chest Level Equipment Ankle Weight- 5.0# Reps/Duration 2x10 bilat Comments cues for no hip flexion and erect posture HS curls and kickbacks Details standing at wall w/min hand support Body Position Standing Water Level Chest Level Equipment Ankle Weight- 5.0# Reps/Duration 2x10 bilat Comments cues for no hip flexion and erect posture CC,CCW Details standing at wall w/min hand support Body Position Standing Water Level Chest Level Equipment Ankle Weight- 5.0# Reps/Duration 2x 10 bilat Comments cues for core stab hip flex/ext, ab/ad Details standing at wall w/min hand support Body Position Standing Water Level Chest Level Equipment large resistance fins Reps/Duration 2x10 bilat Lower Extremity Stretches quads Details and hip flex Equipment Large Noodle Reps/Duration 2x1:00 lateral trunk and ITb stretch Body Position Standing Water Level Chest Level Reps/Duration 2 min static hold Comments holding wall hamstring, ITB, add Details at wall Body Position Standing Water Level Chest Level Equipment hydrofit cuffs and 1 lg noodle Reps/Duration [id number] hold Spinal Exercises trunk rotations Body Position Standing Water Level Chest Level Equipment hydroworks lg barbell Reps/Duration 15 each direction Comments verbal and manual cues Rupert Activities Rupert Activities Bicycle Duration 8 min PT-OP-T Assessment and Plan Start: 04/23/19 15:12 Freq: Status: Active Protocol: Document 09/03/19 14:30 SP (Rec: 09/03/19 15:40 SP [id number]) Physical Therapy Assessment Goals Gait and bal dysfunction Impairment Dynamic gait index (DGI) 1624 Short Term Goal (STG) Decrease fall risk as evidenced by improvement in DGI to at least 20 STG Duration 09/13/19 Filler Operator Goal (LTG) No reported falls, DGI improved to 22/24 LTG Duration 10/29/19 Balance dysfunction Impairment Brown bal score 42/56 Short Term Goal (STG) Decrease fall risk as evidenced by improvement in Brown balance score to at least 48 STG Duration 09/13/19 Filler Operator Goal (LTG) No reported falls, Brown balance score greater than 50 LTG Duration 10/29/19 Recreational Activities 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 LTG Duration 10/29/19 Perceived Disability Impairment Modified Oswestry Score 36% Filler Operator Goal (LTG) Pt will grade overall perceived disability on the Modified Oswestry Questionnaire to 20% or less. LTG Duration 10/29/19 knowledge deficit Filler Operator Goal (LTG) Pt will report good tolerance and compliance to [facility] aquatic exercise program LTG Duration 10/29/19 Activity tolerance Impairment Oswestry disability index score 57% Short Term Goal (STG) Decrease Oswestry score to no greater than 45% STG Duration Goal MET Group Home Goal (LTG) Decrease Oswestry score to no greater than 30% 11/01/18: GOAL PROGRESS 07/30/19: GOAL PROGRESS LTG Duration 10/29/19 weakness Impairment Core and LE weakness Filler Operator Goal (LTG) Pt will have MMT of LE strength graded 4+/5 or greater LTG Duration 10/29/19 pain Impairment 6/10 pain in low back, LLE, right LE Short Term Goal (STG) Pt will report pain 4/10 or less with daily functional activities. STG Duration 09/13/19 Filler Operator Goal (LTG) Pt will report pain 2/10 or less with daily functional activities. LTG Duration 10/29/19 Assessment Summary Assessment Pt is making gains in endurance strengthening during warm up boidex 11-12 min increase resistance and milage. Pt reported LBP resolved post manual and ther ex but L hip pain increased to 8/10 during balance activities toward end of tx. Pt demonstrates improvement in NBOS and progressing in self corrections. Pt continues to demonstrate L pelvic drop when doing high knee march so will continue to work on R hip glut med strengthening with awareness of core facilitation for spinal stabilization. Pt responded well to [facility]HP end of tx for assist pain control 4/ 10 from 03/03. Physical Therapy Plan Frequency and Duration Frequency of Treatment 2x/Week Duration of Treatment 8 wks Plan of Care Start Date 07/30/19 Plan of Care End Date 10/29/19 Therapeutic Interventions Therapeutic Interventions Aquatic Therapy,Home Exercise Program,Manual Therapy, Neuromuscular Re-education, Patient/Caregiver Education, Self-Care/Home Management,Soft Tissue Mobilization,Taping, Therapeutic Activities, Therapeutic Exercises Modalities Cold Pack/Ice Massage,Electric Stimulation,Hot Packs, Ultrasound Next Visit Focus/Plan Next Note Type Treatment Note Next Visit Plan Assess balance activities tollerance last tx without UE support while incorporating L>R hip abd strengthening. Continue per PT POC: Progress hip ab/ad strengthening and standing balance. for hip drop. Work on posture when balancing.
--- NOTE | 2019-09-05 15:17 | PT.OTN ---
Current Diagnoses Low back pain (09/05/19) Pain in right leg (09/05/19) Pain in left leg (09/05/19) Difficulty in walking, not elsewhere classified (09/05/19) Weakness (09/05/19) Physical Therapy Treatment Note PT-OP-A Visit Information Start: 04/23/19 15:12 Freq: Status: Active Protocol: Document 09/05/19 15:17 [facility] (Rec: 09/05/19 16:03 [facility] [id number]) Out-Patient Physical Therapy Visit Information Visit Information Visit Type Treatment Note Visit Start Time 15:15 Visit Stop Time 16:17 Total Visit Minutes 62 Visit Number 17 Number of CASHIER GAMBLING Visits 6 PT-OP-B Current Condition Start: 04/23/19 15:12 Freq: Status: Active Protocol: Document 04/23/19 15:13 SAK (Rec: 04/23/19 16:05 [facility] [id number]) Current Condition History of Current Condition Onset Date 2 yrs Current Complaints LBP History of Current Condition Reports persistent, function- limiting LBP with residual weakness in LE's. Previously having PT with best benefit from aquatic PT but had to discontinue due to medical issues. Underwent spinal decompression 2 years ago with no relief of pain. Has now had second opinion appointment and will be consulting further. Cortisone injection 4 wks ago helpful, has been trying to gradually increase his activity level to not overdo it. Not doing any exercises at home; stating I never sit down at home so am doing a lot of exercises. Found aquatic therapy helpful. Has a tendency to overdo. States he was told this am he has a problem with his liver, has no idea about plan for treatment. Pain is in lumbar spine and into LE's in past. Tingling both feet, reports tests for circulation show no problem. Some numbness bilateral feet. States no reflexes in LE's. Pain anterior left hip since helping a friend clean jacuzzi tub yesterday. Also had increase in pain a couple weeks ago with a day of extensive walking. Prior Treatments and Tests Cortisone injection 4 wks ago, no pain since shot, pain medicaitons, aquatic PT. Future Testing and Treatments Planned Sees orthopedist at [place] in 1 wk to discuss POC. Treatment Goals Patient/Caregiver Goals Strengthen his muscles and be able to resume prior functional level. Requests a couple more PT visits in the pool since he had to discontinue aquatic PT early. 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 Feeling stronger. PT-OP-D Balance Start: 04/23/19 15:12 Freq: Status: Active Protocol: Document 07/30/19 14:26 [facility] (Rec: 07/30/19 16:10 [facility] [id number]) Balance Tests Brown Balance Test Brown Balance Test Score 42 PT-OP-E Functional Tests Start: 04/23/19 15:12 Freq: Status: Active Protocol: Document 07/30/19 14:26 [facility] (Rec: 07/30/19 16:10 [facility] [id number]) Functional Tests Dynamic Gait Index (DGI) Score 16 PT-OP-J Posture/Palpation/Skin Start: 04/23/19 15:12 Freq: Status: Active Protocol: Document 04/23/19 15:13 [facility] (Rec: 04/24/19 14:48 [facility] [id number]) Posture Evaluation Position Standing Head/C-Spine Posture Forward Head T-Spine Posture Increased Kyphosis L-Spine Posture Increased Lordosis Shoulder Posture (L) Rounded,(R) Rounded,(L) Forward,(R) Forward Pelvis Posture Anteriorly Tilted Hip Posture (L) Externally Rotated,(R) Externally Rotated Palpation Assessment Location anterior left hip Palpation Findings Soft Tissue Tightness, Tenderness piriformis Palpation Findings Soft Tissue Tightness PT-OP-K Range of Motion Start: 04/23/19 15:12 Freq: Status: Active Protocol: Document 07/30/19 14:26 [facility] (Rec: 07/30/19 16:10 [facility] [id number]) Lumbar Spine Range of Motion Lumbar Spine Active Flexion 40 Extension 15 Lateral Flexion Left 35 Lateral Flexion Right 35 ROM Limitations Soft Tissue Tightness Hip Goniometric Range of Motion Hip Left Straight Leg Raise 55 Right Straight Leg Raise 45 Hip ROM Limitations Hip ROM Limitations Soft Tissue Tightness,Pain Knee Goniometric Range of Motion Knee Left Knee ROM WFL Yes Right Knee ROM WFL Yes Ankle and Foot Goniometric Range of Motion Ankle and Foot renato Dorsiflexion with Knee Flexed 5 Dorsiflexion with Knee Extended 0 Plantarflexion 45 PT-OP-M Strength Start: 04/23/19 15:12 Freq: Status: Active Protocol: Document 07/30/19 14:26 [facility] (Rec: 07/30/19 16:10 [facility] [id number]) Trunk Strength Trunk Manual Muscle Testing Flexion 4- Good- Extension 4- Good- Hip Strength Hip Manual Muscle Testing Left Flexion (L2) 4 Good Extension (S1) 3- Fair- Abduction 3+ Fair+ External Rotation 4- Good- Internal Rotation 4 Good Right Flexion (L2) 4 Good Extension (S1) 3- Fair- Abduction 4- Good- External Rotation 4- Good- Internal Rotation 4 Good Knee Strength Knee Manual Muscle Testing Left Flexion (S2) 4+ Good+ Extension (L3) 4+ Good+ Right Flexion (S2) 4+ Good+ Extension (L3) 4- Good- Ankle/Foot Strength Ankle and Foot Manual Muscle Testing Left Dorsiflexion (L4) 4- Good- Plantarflexion (S1) 4 Good Right Dorsiflexion (L4) 4+ Good+ Plantarflexion (S1) 4 Good Toe Strength Toe Manual Muscle Testing Left Great Toe Extension 4- Good- Right Great Toe Flexion 4 Good PT-OP-Q Treatments Start: 04/23/19 15:12 Freq: Status: Active Protocol: Document 09/05/19 15:17 [facility] (Rec: 09/05/19 16:03 [facility] [id number]) Cardio Equipment Recumbent Stepper (Sci-Fit) Duration (Minutes) 15 Resistance 7 Seat Position 16 Other 2.64 miles Gym Equipment Shuttle Recovery Unilateral Squats Resistance 75 Shuttle Recovery Platform Stable Reps/Time 17x2 Bilateral Squats Resistance 150 Shuttle Recovery Platform Stable Reps/Time 10x3 Shuttle Balance chains red Details balance and weight shifts: WBOS, staggered feet, side to side Reps/Duration 10 Comments EC/EO, head turns narrow [place], stager stance Therapeutic Exercises Supine Exercises hip flexor stretch Supine Exercise Name Simone Side bilateral Equipment Used strap Reps/Minutes 30x2 Comments side of mat table, knee flexion after 10 sec if ok usign strap SKTC Side bilateral Reps/Minutes 30x2 Standing Exercises 1 Standing Exercise Name Calf Stretch Equipment Used JOHN Reps/Minutes 30 x 2 and rocking Comments pressure on pressure off Manual Therapy Treatment Soft Tissue Mobilization TFL, glut med, PF Body Location L Mobilization Type Cross-Friction,Sustained Pressure Intensity/Depth Moderate ITB Body Location LLE ITB Mobilization Type Instrument Assisted Intensity/Depth Moderate Body Position Sidelying Comments Knees bent, pillow between knees Neuro Re-Education Treatment Balance Activities obstacle course Equipment foam, balance beam, hurdles Reps/Duration 10 min PT-OP-R Modalities Start: 04/23/19 15:12 Freq: Status: Active Protocol: Document 09/05/19 15:17 [facility] (Rec: 09/05/19 16:03 [facility] [id number]) Hot Pack/Cold Pack Treatment L hip Location L hip Patient Position Sidelying Treatment Duration (minutes) 15 Patient Tolerance Good Comments decreased Lhip pain from 8/10 to 4/10. moist heat PT-OP-S Aquatic Treatment Start: 04/23/19 15:12 Freq: Status: Active Protocol: Document 05/16/19 11:00 [facility] (Rec: 05/16/19 15:06 [facility] [id number]) Aquatics Treatment Pool Entry/Exit Pool Entry/Exit Method Stairs Assistance Independent Water Walking figure 8's around boxes Water Level Waist Level Comments 2 boxes forward and back backward step up on box Water Level Waist Level Comments better control this session quick reverses fwd/bck Water Level Chest Level Walking Equipment Resistance Fins Level of Assistance Verbal Cues stairs all directions Water Level Waist Level Comments 6 boxes march, straight leg september Water Level Chest Level Walking Equipment Ankle Weight- 5.0# Level of Assistance Verbal Cues Comments 2 laps fwd,bck,side Water Level Chest Level Walking Equipment Ankle Weight- 5.0# Level of Assistance Verbal Cues Lower Extremity Exercises resisted 90/90 hip ER Body Position Standing Water Level Waist Level Equipment hydroband Reps/Duration 15 bilat Comments band on stair rail and pt ankle HS curls Details standing at wall w/min hand support Body Position Standing Water Level Chest Level Equipment Ankle Weight- 5.0# Reps/Duration 2x10 bilat Comments cues for no hip flexion and erect posture HS curls and kickbacks Details standing at wall w/min hand support Body Position Standing Water Level Chest Level Equipment Ankle Weight- 5.0# Reps/Duration 2x10 bilat Comments cues for no hip flexion and erect posture CC,CCW Details standing at wall w/min hand support Body Position Standing Water Level Chest Level Equipment Ankle Weight- 5.0# Reps/Duration 2x 10 bilat Comments cues for core stab hip flex/ext, ab/ad Details standing at wall w/min hand support Body Position Standing Water Level Chest Level Equipment large resistance fins Reps/Duration 2x10 bilat Lower Extremity Stretches quads Details and hip flex Equipment Large Noodle Reps/Duration 2x1:00 lateral trunk and ITb stretch Body Position Standing Water Level Chest Level Reps/Duration 2 min static hold Comments holding wall hamstring, ITB, add Details at wall Body Position Standing Water Level Chest Level Equipment hydrofit cuffs and 1 lg noodle Reps/Duration [id number] hold Spinal Exercises trunk rotations Body Position Standing Water Level Chest Level Equipment hydroworks lg barbell Reps/Duration 15 each direction Comments verbal and manual cues Center Sandwich Activities Center Sandwich Activities Bicycle Duration 8 min PT-OP-T Assessment and Plan Start: 04/23/19 15:12 Freq: Status: Active Protocol: Document 09/05/19 15:17 [facility] (Rec: 09/05/19 16:03 [facility] [id number]) Physical Therapy Assessment Goals Gait and bal dysfunction Impairment Dynamic gait index (DGI) 16/24 Short Term Goal (STG) Decrease fall risk as evidenced by improvement in DGI to at least 20 STG Duration 09/13/19 [facility] Goal (LTG) No reported falls, DGI improved to 22/24 LTG Duration 10/29/19 Balance dysfunction Impairment Brown bal score 42/56 Short Term Goal (STG) Decrease fall risk as evidenced by improvement in Brown balance score to at least 48 STG Duration 09/13/19 Edge Grinder Goal (LTG) No reported falls, Brown balance score greater than 50 LTG Duration 10/29/19 Recreational Activities 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 LTG Duration 10/29/19 Perceived Disability Impairment Modified Oswestry Score 36% [facility] Goal (LTG) Pt will grade overall perceived disability on the Modified Oswestry Questionnaire to 20% or less. LTG Duration 10/29/19 knowledge deficit Edge Grinder Goal (LTG) Pt will report good tolerance and compliance to [facility] aquatic exercise program LTG Duration 10/29/19 Activity tolerance Impairment Oswestry disability index score 57% Short Term Goal (STG) Decrease Oswestry score to no greater than 45% STG Duration Goal MET Edge Grinder Goal (LTG) Decrease Oswestry score to no greater than 30% 11/01/18: GOAL PROGRESS 07/30/19: GOAL PROGRESS LTG Duration 10/29/19 weakness Impairment Core and LE weakness [facility] Goal (LTG) Pt will have MMT of LE strength graded 4+/5 or greater LTG Duration 10/29/19 pain Impairment 6/10 pain in low back, LLE, right LE Short Term Goal (STG) Pt will report pain 4/10 or less with daily functional activities. STG Duration 09/13/19 Edge Grinder Goal (LTG) Pt will report pain 2/10 or less with daily functional activities. LTG Duration 10/29/19 Assessment Summary Assessment hip and LBP variable, decreased today. SLS 2 sec renato. Able to increase resistance with shuttle recovery. Physical Therapy Plan Frequency and Duration Frequency of Treatment 2x/Week Duration of Treatment 8 wks Plan of Care Start Date 07/30/19 Plan of Care End Date 10/29/19 Therapeutic Interventions Therapeutic Interventions Aquatic Therapy,Home Exercise Program,Manual Therapy, Neuromuscular Re-education, Patient/Caregiver Education, Self-Care/Home Management,Soft Tissue Mobilization,Taping, Therapeutic Activities, Therapeutic Exercises Modalities Cold Pack/Ice Massage,Electric Stimulation,Hot Packs, Ultrasound Next Visit Focus/Plan Next Note Type Treatment Note Next Visit Plan Continue PT to progress balance, strengthening, continue to cue
--- NOTE | 2019-09-10 15:32 | PT.OTN ---
Current Diagnoses Low back pain (09/10/19) Pain in right leg (09/10/19) Pain in left leg (09/10/19) Difficulty in walking, not elsewhere classified (09/10/19) Weakness (09/10/19) Physical Therapy Treatment Note PT-OP-A Visit Information Start: 04/23/19 15:12 Freq: Status: Active Protocol: Document 09/10/19 14:32 SP (Rec: 09/10/19 15:39 SP [id number]) Out-Patient Physical Therapy Visit Information Visit Information Visit Type Treatment Note Visit Start Time 14:32 Visit Stop Time 15:32 Total Visit Minutes 60 Visit Number 18 Number of HIM SPECIALIST Visits 1 PT-OP-B Current Condition Start: 04/23/19 15:12 Freq: Status: Active Protocol: Document 04/23/19 15:13 SAK (Rec: 04/23/19 16:05 SAK [id number]) Current Condition History of Current Condition Onset Date 2 yrs Current Complaints LBP History of Current Condition Reports persistent, function- limiting LBP with residual weakness in LE's. Previously having PT with best benefit from aquatic PT but had to discontinue due to medical issues. Underwent spinal decompression 2 years ago with no relief of pain. Has now had second opinion appointment and will be consulting further. Cortisone injection 4 wks ago helpful, has been trying to gradually increase his activity level to not overdo it. Not doing any exercises at home; stating I never sit down at home so am doing a lot of exercises. Found aquatic therapy helpful. Has a tendency to overdo. States he was told this am he has a problem with his liver, has no idea about plan for treatment. Pain is in lumbar spine and into LE's in past. Tingling both feet, reports tests for circulation show no problem. Some numbness bilateral feet. States no reflexes in LE's. Pain anterior left hip since helping a friend clean jacuzzi tub yesterday. Also had increase in pain a couple weeks ago with a day of extensive walking. Prior Treatments and Tests Cortisone injection 4 wks ago, no pain since shot, pain medicaitons, aquatic PT. Future Testing and Treatments Planned Sees orthopedist at [place] in 1 wk to discuss POC. Treatment Goals Patient/Caregiver Goals Strengthen his muscles and be able to resume prior functional level. Requests a couple more PT visits in the pool since he had to discontinue aquatic PT early. 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 Pt demonstrates an antalgic gait, states walking at grocery store caused the pain and limping upon arrival. PT-OP-D Balance Start: 04/23/19 15:12 Freq: Status: Active Protocol: Document 07/30/19 14:26 [facility] (Rec: 07/30/19 16:10 [facility] [id number]) Balance Tests Brown Balance Test Brown Balance Test Score 42 PT-OP-E Functional Tests Start: 04/23/19 15:12 Freq: Status: Active Protocol: Document 07/30/19 14:26 [facility] (Rec: 07/30/19 16:10 [facility] [id number]) Functional Tests Dynamic Gait Index (DGI) Score 16 PT-OP-J Posture/Palpation/Skin Start: 04/23/19 15:12 Freq: Status: Active Protocol: Document 04/23/19 15:13 [facility] (Rec: 04/24/19 14:48 [facility] [id number]) Posture Evaluation Position Standing Head/C-Spine Posture Forward Head T-Spine Posture Increased Kyphosis L-Spine Posture Increased Lordosis Shoulder Posture (L) Rounded,(R) Rounded,(L) Forward,(R) Forward Pelvis Posture Anteriorly Tilted Hip Posture (L) Externally Rotated,(R) Externally Rotated Palpation Assessment Location anterior left hip Palpation Findings Soft Tissue Tightness, Tenderness piriformis Palpation Findings Soft Tissue Tightness PT-OP-K Range of Motion Start: 04/23/19 15:12 Freq: Status: Active Protocol: Document 07/30/19 14:26 [facility] (Rec: 07/30/19 16:10 [facility] [id number]) Lumbar Spine Range of Motion Lumbar Spine Active Flexion 40 Extension 15 Lateral Flexion Left 35 Lateral Flexion Right 35 ROM Limitations Soft Tissue Tightness Hip Goniometric Range of Motion Hip Left Straight Leg Raise 55 Right Straight Leg Raise 45 Hip ROM Limitations Hip ROM Limitations Soft Tissue Tightness,Pain Knee Goniometric Range of Motion Knee Left Knee ROM WFL Yes Right Knee ROM WFL Yes Ankle and Foot Goniometric Range of Motion Ankle and Foot renato Dorsiflexion with Knee Flexed 5 Dorsiflexion with Knee Extended 0 Plantarflexion 45 PT-OP-M Strength Start: 04/23/19 15:12 Freq: Status: Active Protocol: Document 07/30/19 14:26 [facility] (Rec: 07/30/19 16:10 [facility] [id number]) Trunk Strength Trunk Manual Muscle Testing Flexion 4- Good- Extension 4- Good- Hip Strength Hip Manual Muscle Testing Left Flexion (L2) 4 Good Extension (S1) 3- Fair- Abduction 3+ Fair+ External Rotation 4- Good- Internal Rotation 4 Good Right Flexion (L2) 4 Good Extension (S1) 3- Fair- Abduction 4- Good- External Rotation 4- Good- Internal Rotation 4 Good Knee Strength Knee Manual Muscle Testing Left Flexion (S2) 4+ Good+ Extension (L3) 4+ Good+ Right Flexion (S2) 4+ Good+ Extension (L3) 4- Good- Ankle/Foot Strength Ankle and Foot Manual Muscle Testing Left Dorsiflexion (L4) 4- Good- Plantarflexion (S1) 4 Good Right Dorsiflexion (L4) 4+ Good+ Plantarflexion (S1) 4 Good Toe Strength Toe Manual Muscle Testing Left Great Toe Extension 4- Good- Right Great Toe Flexion 4 Good PT-OP-Q Treatments Start: 04/23/19 15:12 Freq: Status: Active Protocol: Document 09/10/19 14:32 SP (Rec: 09/10/19 15:39 SP [id number]) Cardio Equipment Recumbent Stepper (Sci-Fit) Duration (Minutes) 17 Resistance 6 Seat Position 16 Other 2.49 miles Gym Equipment Shuttle Recovery Unilateral Squats Resistance 87 Shuttle Recovery Platform Stable Reps/Time 17x2 Bilateral Squats Resistance 150 Shuttle Recovery Platform Stable Reps/Time 10x3 Therapeutic Exercises Supine Exercises hip flexor stretch Supine Exercise Name Simone Side bilateral Equipment Used strap Reps/Minutes 30x2 Comments side of mat table, knee flexion after 10 sec if ok usign strap piriformis Side bilateral Reps/Minutes 30x2 Sitting Exercises HS Sitting Exercise Name stretch Equipment Used rolling pin Reps/Minutes 30 sec x 2 Sciatic nerve floss Side left Reps/Minutes 3 Standing Exercises 1 Standing Exercise Name Calf Stretch Equipment Used JOHN Reps/Minutes 30 x 2 and rocking Comments pressure on pressure off Manual Therapy Treatment Soft Tissue Mobilization HS Body Location L Body Position Sitting Comments rolling pin, self instruction TFL, glut med, PF Body Location L Mobilization Type Cross-Friction,Sustained Pressure Intensity/Depth Moderate PT-OP-R Modalities Start: 04/23/19 15:12 Freq: Status: Active Protocol: Document 09/10/19 14:32 SP (Rec: 09/10/19 15:39 SP [id number]) Hot Pack/Cold Pack Treatment L hip Location L hip Patient Position Sidelying Treatment Duration (minutes) 15 Patient Tolerance Good PT-OP-S Aquatic Treatment Start: 04/23/19 15:12 Freq: Status: Active Protocol: Document 05/16/19 11:00 LJ (Rec: 05/16/19 15:06 LJ [id number]) Aquatics Treatment Pool Entry/Exit Pool Entry/Exit Method Stairs Assistance Independent Water Walking figure 8's around boxes Water Level Waist Level Comments 2 boxes forward and back backward step up on box Water Level Waist Level Comments better control this session quick reverses fwd/bck Water Level Chest Level Walking Equipment Resistance Fins Level of Assistance Verbal Cues stairs all directions Water Level Waist Level Comments 6 boxes march, straight leg september Water Level Chest Level Walking Equipment Ankle Weight- 5.0# Level of Assistance Verbal Cues Comments 2 laps fwd,bck,side Water Level Chest Level Walking Equipment Ankle Weight- 5.0# Level of Assistance Verbal Cues Lower Extremity Exercises resisted 90/90 hip ER Body Position Standing Water Level Waist Level Equipment hydroband Reps/Duration 15 bilat Comments band on stair rail and pt ankle HS curls Details standing at wall w/min hand support Body Position Standing Water Level Chest Level Equipment Ankle Weight- 5.0# Reps/Duration 2x10 bilat Comments cues for no hip flexion and erect posture HS curls and kickbacks Details standing at wall w/min hand support Body Position Standing Water Level Chest Level Equipment Ankle Weight- 5.0# Reps/Duration 2x10 bilat Comments cues for no hip flexion and erect posture CC,CCW Details standing at wall w/min hand support Body Position Standing Water Level Chest Level Equipment Ankle Weight- 5.0# Reps/Duration 2x 10 bilat Comments cues for core stab hip flex/ext, ab/ad Details standing at wall w/min hand support Body Position Standing Water Level Chest Level Equipment large resistance fins Reps/Duration 2x10 bilat Lower Extremity Stretches quads Details and hip flex Equipment Large Noodle Reps/Duration 2x1:00 lateral trunk and ITb stretch Body Position Standing Water Level Chest Level Reps/Duration 2 min static hold Comments holding wall hamstring, ITB, add Details at wall Body Position Standing Water Level Chest Level Equipment hydrofit cuffs and 1 lg noodle Reps/Duration [id number] hold Spinal Exercises trunk rotations Body Position Standing Water Level Chest Level Equipment hydroworks lg barbell Reps/Duration 15 each direction Comments verbal and manual cues Proctor Activities Proctor Activities Bicycle Duration 8 min PT-OP-T Assessment and Plan Start: 04/23/19 15:12 Freq: Status: Active Protocol: Document 09/10/19 14:32 SP (Rec: 09/10/19 15:39 SP [id number]) Physical Therapy Assessment Goals Gait and bal dysfunction Impairment Dynamic gait index (DGI) 16 Short Term Goal (STG) Decrease fall risk as evidenced by improvement in DGI to at least 20 STG Duration 09/13/19 [employer] Goal (LTG) No reported falls, DGI improved to 22/24 LTG Duration 10/29/19 Balance dysfunction Impairment Brown bal score 42/56 Short Term Goal (STG) Decrease fall risk as evidenced by improvement in Brown balance score to at least 48 STG Duration 09/13/19 Shelter Goal (LTG) No reported falls, Brown balance score greater than 50 LTG Duration 10/29/19 Recreational Activities 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 LTG Duration 10/29/19 Perceived Disability Impairment Modified Oswestry Score 36% [employer] Goal (LTG) Pt will grade overall perceived disability on the Modified Oswestry Questionnaire to 20% or less. LTG Duration 10/29/19 knowledge deficit Shelter Goal (LTG) Pt will report good tolerance and compliance to indep aquatic exercise program LTG Duration 10/29/19 Activity tolerance Impairment Oswestry disability index score 57% Short Term Goal (STG) Decrease Oswestry score to no greater than 45% STG Duration Goal MET Shelter Goal (LTG) Decrease Oswestry score to no greater than 30% 11/01/18: GOAL PROGRESS 07/30/19: GOAL PROGRESS LTG Duration 10/29/19 weakness Impairment Core and LE weakness [employer] Goal (LTG) Pt will have MMT of LE strength graded 4+/5 or greater LTG Duration 10/29/19 pain Impairment 6/10 pain in low back, LLE, right LE Short Term Goal (STG) Pt will report pain 4/10 or less with daily functional activities. STG Duration 09/13/19 Shelter Goal (LTG) Pt will report pain 2/10 or less with daily functional activities. LTG Duration 10/29/19 Assessment Summary Assessment Tx focused on warm up and decreased L hip pain pre PT 6. 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 Pt responded well feels little looser but unsure why anterolateral L hip pain still hurts, expecially during simone stretch with strap 1st reps then after that is much better, like muscles rolling? Pt's pain decreased to post manual and MHP end of tx 5. Instructed sciatic nerve flossing in sititing with good only HS stretch felt. I feel just maybe need burn the nerves and maybe will take care of the pain. Physical Therapy Plan Frequency and Duration Frequency of Treatment 2x/Week Duration of Treatment 8 wks Plan of Care Start Date 07/30/19 Plan of Care End Date 10/29/19
--- NOTE | 2019-09-12 10:25 | PT.OTN ---
Current Diagnoses Low back pain (09/12/19) Pain in right leg (09/12/19) Pain in left leg (09/12/19) Difficulty in walking, not elsewhere classified (09/12/19) Weakness (09/12/19) Physical Therapy Treatment Note PT-OP-A Visit Information Start: 04/23/19 15:12 Freq: Status: Active Protocol: Document 09/12/19 08:11 [facility] (Rec: 09/12/19 09:00 [facility] [id number]) Out-Patient Physical Therapy Visit Information Visit Information Visit Type Treatment Note Visit Start Time 08:15 Visit Stop Time 09:15 Total Visit Minutes 60 Visit Number 19 Number of HOT [employer] SUPER[employer] Visits 0 PT-OP-B Current Condition Start: 04/23/19 15:12 Freq: Status: Active Protocol: Document 04/23/19 15:13 SAK (Rec: 04/23/19 16:05 [facility] [id number]) Current Condition History of Current Condition Onset Date 2 yrs Current Complaints LBP History of Current Condition Reports persistent, function- limiting LBP with residual weakness in LE's. Previously having PT with best benefit from aquatic PT but had to discontinue due to medical issues. Underwent spinal decompression 2 years ago with no relief of pain. Has now had second opinion appointment and will be consulting further. Cortisone injection 4 wks ago helpful, has been trying to gradually increase his activity level to not overdo it. Not doing any exercises at home; stating I never sit down at home so am doing a lot of exercises. Found aquatic therapy helpful. Has a tendency to overdo. States he was told this am he has a problem with his liver, has no idea about plan for treatment. Pain is in lumbar spine and into LE's in past. Tingling both feet, reports tests for circulation show no problem. Some numbness bilateral feet. States no reflexes in LE's. Pain anterior left hip since helping a friend clean jacuzzi tub yesterday. Also had increase in pain a couple weeks ago with a day of extensive walking. Prior Treatments and Tests Cortisone injection 4 wks ago, no pain since shot, pain medicaitons, aquatic PT. Future Testing and Treatments Planned Sees orthopedist at [place] in 1 wk to discuss POC. Treatment Goals Patient/Caregiver Goals Strengthen his muscles and be able to resume prior functional level. Requests a couple more PT visits in the pool since he had to discontinue aquatic PT early. 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 Has not made it to the pool for ther ex. PT-OP-D Balance Start: 04/23/19 15:12 Freq: Status: Active Protocol: Document 07/30/19 14:26 [facility] (Rec: 07/30/19 16:10 [facility] [id number]) Balance Tests Brown Balance Test Brown Balance Test Score 42 PT-OP-E Functional Tests Start: 04/23/19 15:12 Freq: Status: Active Protocol: Document 07/30/19 14:26 [facility] (Rec: 07/30/19 16:10 [facility] [id number]) Functional Tests Dynamic Gait Index (DGI) Score 16 PT-OP-J Posture/Palpation/Skin Start: 04/23/19 15:12 Freq: Status: Active Protocol: Document 04/23/19 15:13 [facility] (Rec: 04/24/19 14:48 [facility] [id number]) Posture Evaluation Position Standing Head/C-Spine Posture Forward Head T-Spine Posture Increased Kyphosis L-Spine Posture Increased Lordosis Shoulder Posture (L) Rounded,(R) Rounded,(L) Forward,(R) Forward Pelvis Posture Anteriorly Tilted Hip Posture (L) Externally Rotated,(R) Externally Rotated Palpation Assessment Location anterior left hip Palpation Findings Soft Tissue Tightness, Tenderness piriformis Palpation Findings Soft Tissue Tightness PT-OP-K Range of Motion Start: 04/23/19 15:12 Freq: Status: Active Protocol: Document 07/30/19 14:26 [facility] (Rec: 07/30/19 16:10 [facility] [id number]) Lumbar Spine Range of Motion Lumbar Spine Active Flexion 40 Extension 15 Lateral Flexion Left 35 Lateral Flexion Right 35 ROM Limitations Soft Tissue Tightness Hip Goniometric Range of Motion Hip Left Straight Leg Raise 55 Right Straight Leg Raise 45 Hip ROM Limitations Hip ROM Limitations Soft Tissue Tightness,Pain Knee Goniometric Range of Motion Knee Left Knee ROM WFL Yes Right Knee ROM WFL Yes Ankle and Foot Goniometric Range of Motion Ankle and Foot renato Dorsiflexion with Knee Flexed 5 Dorsiflexion with Knee Extended 0 Plantarflexion 45 PT-OP-M Strength Start: 04/23/19 15:12 Freq: Status: Active Protocol: Document 07/30/19 14:26 [facility] (Rec: 07/30/19 16:10 [facility] [id number]) Trunk Strength Trunk Manual Muscle Testing Flexion 4- Good- Extension 4- Good- Hip Strength Hip Manual Muscle Testing Left Flexion (L2) 4 Good Extension (S1) 3- Fair- Abduction 3+ Fair+ External Rotation 4- Good- Internal Rotation 4 Good Right Flexion (L2) 4 Good Extension (S1) 3- Fair- Abduction 4- Good- External Rotation 4- Good- Internal Rotation 4 Good Knee Strength Knee Manual Muscle Testing Left Flexion (S2) 4+ Good+ Extension (L3) 4+ Good+ Right Flexion (S2) 4+ Good+ Extension (L3) 4- Good- Ankle/Foot Strength Ankle and Foot Manual Muscle Testing Left Dorsiflexion (L4) 4- Good- Plantarflexion (S1) 4 Good Right Dorsiflexion (L4) 4+ Good+ Plantarflexion (S1) 4 Good Toe Strength Toe Manual Muscle Testing Left Great Toe Extension 4- Good- Right Great Toe Flexion 4 Good PT-OP-Q Treatments Start: 04/23/19 15:12 Freq: Status: Active Protocol: Document 09/12/19 08:11 [facility] (Rec: 09/12/19 09:00 [facility] [id number]) Cardio Equipment Recumbent Stepper (Sci-Fit) Duration (Minutes) 15 Resistance 7 Seat Position 16 Other 2.66 miles Gym Equipment Shuttle Balance chains red Details balance and weight shifts: WBOS, staggered feet, side to side Reps/Duration 10 Comments EC/EO, head turns narrow [place], stagger stance Therapeutic Exercises Supine Exercises IT band Reps/Minutes 2x Comments manual and strap hip flexor stretch Supine Exercise Name Simone Side bilateral Equipment Used strap Reps/Minutes 30x2 Comments side of mat table, knee flexion after 10 sec if ok usign strap HS stretch Equipment Used strap and manual assist Reps/Minutes 30x2 piriformis Side bilateral Reps/Minutes 30x2 Standing Exercises HS stretch Reps/Minutes 2x Comments stair BOSU lunges Reps/Minutes 10x ea LE 4 way hip Equipment Used L2 TB Reps/Minutes 10x 1 Standing Exercise Name Calf Stretch Equipment Used JOHN Reps/Minutes 30 x 2 and rocking Comments pressure on pressure off Neuro Re-Education Treatment Balance Activities SLS Reps/Duration 3x ea Comments mirror for visual feedback, one-hand support 3x tandem stand and tandem gait Reps/Duration 4 min Comments CG to min assist BOSU lunges Details balance on flat Comments wt shift f/ neutral and mini squat PT-OP-R Modalities Start: 04/23/19 15:12 Freq: Status: Active Protocol: Document 09/12/19 08:11 [facility] (Rec: 09/12/19 09:00 [facility] [id number]) Hot Pack/Cold Pack Treatment L hip Location L hip Patient Position Sidelying Treatment Duration (minutes) 15 Patient Tolerance Good PT-OP-S Aquatic Treatment Start: 04/23/19 15:12 Freq: Status: Active Protocol: Document 05/16/19 11:00 [facility] (Rec: 05/16/19 15:06 [facility] [id number]) Aquatics Treatment Pool Entry/Exit Pool Entry/Exit Method Stairs Assistance Independent Water Walking figure 8's around boxes Water Level Waist Level Comments 2 boxes forward and back backward step up on box Water Level Waist Level Comments better control this session quick reverses fwd/bck Water Level Chest Level Walking Equipment Resistance Fins Level of Assistance Verbal Cues stairs all directions Water Level Waist Level Comments 6 boxes march, straight leg march Water Level Chest Level Walking Equipment Ankle Weight- 5.0# Level of Assistance Verbal Cues Comments 2 laps fwd,bck,side Water Level Chest Level Walking Equipment Ankle Weight- 5.0# Level of Assistance Verbal Cues Lower Extremity Exercises resisted 90/90 hip ER Body Position Standing Water Level Waist Level Equipment hydroband Reps/Duration 15 bilat Comments band on stair rail and pt ankle HS curls Details standing at wall w/min hand support Body Position Standing Water Level Chest Level Equipment Ankle Weight- 5.0# Reps/Duration 2x10 bilat Comments cues for no hip flexion and erect posture HS curls and kickbacks Details standing at wall w/min hand support Body Position Standing Water Level Chest Level Equipment Ankle Weight- 5.0# Reps/Duration 2x10 bilat Comments cues for no hip flexion and erect posture CC,CCW Details standing at wall w/min hand support Body Position Standing Water Level Chest Level Equipment Ankle Weight- 5.0# Reps/Duration 2x 10 bilat Comments cues for core stab hip flex/ext, ab/ad Details standing at wall w/min hand support Body Position Standing Water Level Chest Level Equipment large resistance fins Reps/Duration 2x10 bilat Lower Extremity Stretches quads Details and hip flex Equipment Large Noodle Reps/Duration 2x1:00 lateral trunk and ITb stretch Body Position Standing Water Level Chest Level Reps/Duration 2 min static hold Comments holding wall hamstring, ITB, add Details at wall Body Position Standing Water Level Chest Level Equipment hydrofit cuffs and 1 lg noodle Reps/Duration [id number] hold Spinal Exercises trunk rotations Body Position Standing Water Level Chest Level Equipment hydroworks lg barbell Reps/Duration 15 each direction Comments verbal and manual cues Gabbs Activities Gabbs Activities Bicycle Duration 8 min PT-OP-T Assessment and Plan Start: 04/23/19 15:12 Freq: Status: Active Protocol: Document 09/12/19 08:11 [facility] (Rec: 09/12/19 09:00 [facility] [id number]) Physical Therapy Assessment Goals Gait and bal dysfunction Impairment Dynamic gait index (DGI) 1624 Short Term Goal (STG) Decrease fall risk as evidenced by improvement in DGI to at least 20 STG Duration 09/13/19 Penitentiary Goal (LTG) No reported falls, DGI improved to 22/24 LTG Duration 10/29/19 Balance dysfunction Impairment Brown bal score 42/56 Short Term Goal (STG) Decrease fall risk as evidenced by improvement in Brown balance score to at least 48 STG Duration 09/13/19 Penitentiary Goal (LTG) No reported falls, Brown balance score greater than 50 LTG Duration 10/29/19 Recreational Activities 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 LTG Duration 10/29/19 Perceived Disability Impairment Modified Oswestry Score 36% [employer] Of [employer] Goal (LTG) Pt will grade overall perceived disability on the Modified Oswestry Questionnaire to 20% or less. LTG Duration 10/29/19 knowledge deficit [employer] Goal (LTG) Pt will report good tolerance and compliance to [facility] aquatic exercise program LTG Duration 10/29/19 Activity tolerance Impairment Oswestry disability index score 57% Short Term Goal (STG) Decrease Oswestry score to no greater than 45% STG Duration Goal MET Penitentiary Goal (LTG) Decrease Oswestry score to no greater than 30% 11/01/18: GOAL PROGRESS 07/30/19: GOAL PROGRESS LTG Duration 10/29/19 weakness Impairment Core and LE weakness Penitentiary Goal (LTG) Pt will have MMT of LE strength graded 4+/5 or greater LTG Duration 10/29/19 pain Impairment 6/10 pain in low back, LLE, right LE Short Term Goal (STG) Pt will report pain 4/10 or less with daily functional activities. STG Duration 09/13/19 [employer] Goal (LTG) Pt will report pain 2/10 or less with daily functional activities. LTG Duration 10/29/19 Assessment Summary Assessment more difficulty balancing on left vs right, HS and IT band tighter on left. Added standing 4-way hip ex with TB to HEP Physical Therapy Plan Frequency and Duration Frequency of Treatment 2x/Week Duration of Treatment 8 wks Plan of Care Start Date 07/30/19 Plan of Care End Date 10/29/19 Therapeutic Interventions Therapeutic Interventions Aquatic Therapy,Home Exercise Program,Manual Therapy, Neuromuscular Re-education, Patient/Caregiver Education, Self-Care/Home Management,Soft Tissue Mobilization,Taping, Therapeutic Activities, Therapeutic Exercises Modalities Cold Pack/Ice Massage,Electric Stimulation,Hot Packs, Ultrasound Next Visit Focus/Plan Next Note Type Treatment Note Next Visit Plan Reassessment, discuss POC
--- NOTE | 2019-09-18 11:08 | PT.OTN ---
Current Diagnoses Low back pain (09/18/19) Pain in right leg (09/18/19) Pain in left leg (09/18/19) Difficulty in walking, not elsewhere classified (09/18/19) Weakness (09/18/19) Physical Therapy Treatment Note PT-OP-A Visit Information Start: 04/23/19 15:12 Freq: Status: Active Protocol: Document 09/18/19 09:01 [facility] (Rec: 09/18/19 09:45 [facility] [id number]) Out-Patient Physical Therapy Visit Information Visit Information Visit Type Treatment Note Visit Start Time 09:00 Visit Stop Time 09:15 Total Visit Minutes 60 Visit Number 20 Number of CASTING CHIPPER Visits 0 PT-OP-B Current Condition Start: 04/23/19 15:12 Freq: Status: Active Protocol: Document 04/23/19 15:13 [facility] (Rec: 04/23/19 16:05 [facility] [id number]) Current Condition History of Current Condition Onset Date 2 yrs Current Complaints LBP History of Current Condition Reports persistent, function- limiting LBP with residual weakness in LE's. Previously having PT with best benefit from aquatic PT but had to discontinue due to medical issues. Underwent spinal decompression 2 years ago with no relief of pain. Has now had second opinion appointment and will be consulting further. Cortisone injection 4 wks ago helpful, has been trying to gradually increase his activity level to not overdo it. Not doing any exercises at home; stating I never sit down at home so am doing a lot of exercises. Found aquatic therapy helpful. Has a tendency to overdo. States he was told this am he has a problem with his liver, has no idea about plan for treatment. Pain is in lumbar spine and into LE's in past. Tingling both feet, reports tests for circulation show no problem. Some numbness bilateral feet. States no reflexes in LE's. Pain anterior left hip since helping a friend clean jacuzzi tub yesterday. Also had increase in pain a couple weeks ago with a day of extensive walking. Prior Treatments and Tests Cortisone injection 4 wks ago, no pain since shot, pain medicaitons, aquatic PT. Future Testing and Treatments Planned Sees orthopedist at [place] in 1 wk to discuss POC. Treatment Goals Patient/Caregiver Goals Strengthen his muscles and be able to resume prior functional level. Requests a couple more PT visits in the pool since he had to discontinue aquatic PT early. 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 Blood sugars have been ok. States he feels like his numbness has decreased. Denies falls. Pain increased recently right knee and left hip, Hasn't been to the pool to do independent aquatic exercises for quite awhile. PT-OP-D Balance Start: 04/23/19 15:12 Freq: Status: Active Protocol: Document 07/30/19 14:26 [facility] (Rec: 07/30/19 16:10 [facility] [id number]) Balance Tests Brown Balance Test Brown Balance Test Score 42 PT-OP-E Functional Tests Start: 04/23/19 15:12 Freq: Status: Active Protocol: Document 07/30/19 14:26 [facility] (Rec: 07/30/19 16:10 [facility] [id number]) Functional Tests Dynamic Gait Index (DGI) Score 16 PT-OP-J Posture/Palpation/Skin Start: 04/23/19 15:12 Freq: Status: Active Protocol: Document 04/23/19 15:13 [facility] (Rec: 04/24/19 14:48 [facility] [id number]) Posture Evaluation Position Standing Head/C-Spine Posture Forward Head T-Spine Posture Increased Kyphosis L-Spine Posture Increased Lordosis Shoulder Posture (L) Rounded,(R) Rounded,(L) Forward,(R) Forward Pelvis Posture Anteriorly Tilted Hip Posture (L) Externally Rotated,(R) Externally Rotated Palpation Assessment Location anterior left hip Palpation Findings Soft Tissue Tightness, Tenderness piriformis Palpation Findings Soft Tissue Tightness PT-OP-K Range of Motion Start: 04/23/19 15:12 Freq: Status: Active Protocol: Document 07/30/19 14:26 [facility] (Rec: 07/30/19 16:10 [facility] [id number]) Lumbar Spine Range of Motion Lumbar Spine Active Flexion 40 Extension 15 Lateral Flexion Left 35 Lateral Flexion Right 35 ROM Limitations Soft Tissue Tightness Hip Goniometric Range of Motion Hip Left Straight Leg Raise 55 Right Straight Leg Raise 45 Hip ROM Limitations Hip ROM Limitations Soft Tissue Tightness,Pain Knee Goniometric Range of Motion Knee Left Knee ROM WFL Yes Right Knee ROM WFL Yes Ankle and Foot Goniometric Range of Motion Ankle and Foot renato Dorsiflexion with Knee Flexed 5 Dorsiflexion with Knee Extended 0 Plantarflexion 45 PT-OP-M Strength Start: 04/23/19 15:12 Freq: Status: Active Protocol: Document 07/30/19 14:26 [facility] (Rec: 07/30/19 16:10 [facility] [id number]) Trunk Strength Trunk Manual Muscle Testing Flexion 4- Good- Extension 4- Good- Hip Strength Hip Manual Muscle Testing Left Flexion (L2) 4 Good Extension (S1) 3- Fair- Abduction 3+ Fair+ External Rotation 4- Good- Internal Rotation 4 Good Right Flexion (L2) 4 Good Extension (S1) 3- Fair- Abduction 4- Good- External Rotation 4- Good- Internal Rotation 4 Good Knee Strength Knee Manual Muscle Testing Left Flexion (S2) 4+ Good+ Extension (L3) 4+ Good+ Right Flexion (S2) 4+ Good+ Extension (L3) 4- Good- Ankle/Foot Strength Ankle and Foot Manual Muscle Testing Left Dorsiflexion (L4) 4- Good- Plantarflexion (S1) 4 Good Right Dorsiflexion (L4) 4+ Good+ Plantarflexion (S1) 4 Good Toe Strength Toe Manual Muscle Testing Left Great Toe Extension 4- Good- Right Great Toe Flexion 4 Good PT-OP-Q Treatments Start: 04/23/19 15:12 Freq: Status: Active Protocol: Document 09/18/19 09:01 [facility] (Rec: 09/18/19 09:45 [facility] [id number]) Cardio Equipment Recumbent Stepper (Sci-Fit) Duration (Minutes) 12 Resistance 7 Other 2.12 miles Gym Equipment Shuttle Balance chains red Details balance and weight shifts: WBOS, staggered feet, side to side Reps/Duration 10 Comments EC/EO, head turns narrow [place], stagger stance Therapeutic Exercises Supine Exercises lateral trunk stretch Reps/Minutes 2x ITB Reps/Minutes 2x Comments manual Sidelying Exercises lat stretch Reps/Minutes 1x ea Comments cues for deep breathing for muscle relaxation reach and roll Reps/Minutes 5x ea Comments verbal and manual cues for spinal mobility Sitting Exercises Sciatic nerve floss Side left Reps/Minutes [address] Ex[address] hip Equipment Used L2 TB Reps/Minutes 10x 1 Standing Exercise Name Calf Stretch Equipment Used JOHN Reps/Minutes 30 x 2 and rocking Comments pressure on pressure off Therapeutic Activity Therapeutic Activity balance testing Reps/Minutes 12 Manual Therapy Treatment Soft Tissue Mobilization TFL, glut med, PF Body Location L Mobilization Type Cross-Friction,Sustained Pressure Intensity/Depth Moderate Neuro Re-Education Treatment Balance Activities tandem stand and tandem gait Reps/Duration 4 min Comments CG to min assist PT-OP-R Modalities Start: 04/23/19 15:12 Freq: Status: Active Protocol: Document 09/18/19 09:01 [facility] (Rec: 09/18/19 09:45 [facility] [id number]) Hot Pack/Cold Pack Treatment L hip Location lumbar spine, piriformis Patient Tolerance Good PT-OP-S Aquatic Treatment Start: 04/23/19 15:12 Freq: Status: Active Protocol: Document 05/16/19 11:00 [facility] (Rec: 05/16/19 15:06 [facility] [id number]) Aquatics Treatment Pool Entry/Exit Pool Entry/Exit Method Stairs Assistance Independent Water Walking figure 8's around boxes Water Level Waist Level Comments 2 boxes forward and back backward step up on box Water Level Waist Level Comments better control this session quick reverses fwd/bck Water Level Chest Level Walking Equipment Resistance Fins Level of Assistance Verbal Cues stairs all directions Water Level Waist Level Comments 6 boxes march, straight leg september Water Level Chest Level Walking Equipment Ankle Weight- 5.0# Level of Assistance Verbal Cues Comments 2 laps fwd,bck,side Water Level Chest Level Walking Equipment Ankle Weight- 5.0# Level of Assistance Verbal Cues Lower Extremity Exercises resisted 90/90 hip ER Body Position Standing Water Level Waist Level Equipment hydroband Reps/Duration 15 bilat Comments band on stair rail and pt ankle HS curls Details standing at wall w/min hand support Body Position Standing Water Level Chest Level Equipment Ankle Weight- 5.0# Reps/Duration 2x10 bilat Comments cues for no hip flexion and erect posture HS curls and kickbacks Details standing at wall w/min hand support Body Position Standing Water Level Chest Level Equipment Ankle Weight- 5.0# Reps/Duration 2x10 bilat Comments cues for no hip flexion and erect posture CC,CCW Details standing at wall w/min hand support Body Position Standing Water Level Chest Level Equipment Ankle Weight- 5.0# Reps/Duration 2x 10 bilat Comments cues for core stab hip flex/ext, ab/ad Details standing at wall w/min hand support Body Position Standing Water Level Chest Level Equipment large resistance fins Reps/Duration 2x10 bilat Lower Extremity Stretches quads Details and hip flex Equipment Large Noodle Reps/Duration 2x1:00 lateral trunk and ITb stretch Body Position Standing Water Level Chest Level Reps/Duration 2 min static hold Comments holding wall hamstring, ITB, add Details at wall Body Position Standing Water Level Chest Level Equipment hydrofit cuffs and 1 lg noodle Reps/Duration [id number] hold Spinal Exercises trunk rotations Body Position Standing Water Level Chest Level Equipment hydroworks lg barbell Reps/Duration 15 each direction Comments verbal and manual cues [place] Activities [place] Activities Bicycle Duration 8 min PT-OP-T Assessment and Plan Start: 04/23/19 15:12 Freq: Status: Active Protocol: Document 09/18/19 09:01 [facility] (Rec: 09/18/19 09:45 [facility] [id number]) Physical Therapy Assessment Goals Gait and bal dysfunction Impairment Dynamic gait index (DGI) Short Term Goal (STG) Decrease fall risk as evidenced by improvement in DGI to at least 20 09/17/19: goal progress STG Duration 09/13/19 Senior Care Goal (LTG) No reported falls, DGI improved to LTG Duration 10/29/19 Balance dysfunction Impairment Brown bal score 42/56 Short Term Goal (STG) Decrease fall risk as evidenced by improvement in Brown balance score to at least 48 09/17/19: goal progress STG Duration 09/13/19 [facility] Assorter Goal (LTG) No reported falls, Brown balance score greater than 50 LTG Duration 10/29/19 Recreational Activities 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 LTG Duration 10/29/19 Perceived Disability Impairment Modified Oswestry Score 36% [facility] Assorter Goal (LTG) Pt will grade overall perceived disability on the Modified Oswestry Questionnaire to 20% or less. LTG Duration 10/29/19 knowledge deficit Diamond Assorter Goal (LTG) Pt will report good tolerance and compliance to [facility] aquatic exercise program 09/17/19: has not recently done , will restart today LTG Duration 10/29/19 Activity tolerance Impairment Oswestry disability index score 57% Short Term Goal (STG) Decrease Oswestry score to no greater than 45% STG Duration Goal MET Senior Care Goal (LTG) Decrease Oswestry score to no greater than 30% 11/01/18: GOAL PROGRESS 07/30/19: GOAL PROGRESS 09/17/19: goal progress, no falls LTG Duration 10/29/19 weakness Impairment Core and LE weakness Diamond Assorter Goal (LTG) Pt will have MMT of LE strength graded 4+/5 or greater 09/13/19: some goal progress LTG Duration 10/29/19 pain Impairment 6/10 pain in low back, LLE, right LE Short Term Goal (STG) Pt will report pain 4/10 or less with daily functional activities. 09/17/19: recent worsening. STG Duration 09/13/19 Senior Care Goal (LTG) Pt will report pain 2/10 or less with daily functional activities. LTG Duration 10/29/19 Assessment Summary Assessment Balance tests indicate improvement with SLS improved left from 1 sec to 4 sec and right from 3 to 6 sec, improvement in Brown balance score and DGI. Pain has recently increased. Encouraged patient to return to aquatic exercise as previously instructed. Physical Therapy Plan Frequency and Duration Frequency of Treatment 2x/Week Duration of Treatment 8 wks Plan of Care Start Date 07/30/19 Plan of Care End Date 10/29/19 Therapeutic Interventions Therapeutic Interventions Aquatic Therapy,Home Exercise Program,Manual Therapy, Neuromuscular Re-education, Patient/Caregiver Education, Self-Care/Home Management,Soft Tissue Mobilization,Taping, Therapeutic Activities, Therapeutic Exercises Modalities Cold Pack/Ice Massage,Electric Stimulation,Hot Packs, Ultrasound Next Visit Focus/Plan Next Note Type Treatment Note Next Visit Plan Assess patient response to returning to aquatic exercise, review posture and body mechanics principles including patient usual activities for functional retraining. Emphasize importance of flexibility, nerve flossing.
--- NOTE | 2019-09-19 14:38 | PT.OTN ---
Current Diagnoses Low back pain (09/19/19) Pain in right leg (09/19/19) Pain in left leg (09/19/19) Difficulty in walking, not elsewhere classified (09/19/19) Weakness (09/19/19) Physical Therapy Treatment Note PT-OP-A Visit Information Start: 04/23/19 15:12 Freq: Status: Active Protocol: Document 09/19/19 13:45 DCW (Rec: 09/19/19 14:38 DCW [id number]) Out-Patient Physical Therapy Visit Information Visit Information Visit Type Treatment Note Visit Start Time 13:45 Visit Stop Time 14:45 Total Visit Minutes 60 Visit Number 21 Number of TOOLING ENGINEERING TECH Visits 0 PT-OP-B Current Condition Start: 04/23/19 15:12 Freq: Status: Active Protocol: Document 04/23/19 15:13 SAK (Rec: 04/23/19 16:05 SAK [id number]) Current Condition History of Current Condition Onset Date 2 yrs Current Complaints LBP History of Current Condition Reports persistent, function- limiting LBP with residual weakness in LE's. Previously having PT with best benefit from aquatic PT but had to discontinue due to medical issues. Underwent spinal decompression 2 years ago with no relief of pain. Has now had second opinion appointment and will be consulting further. Cortisone injection 4 wks ago helpful, has been trying to gradually increase his activity level to not overdo it. Not doing any exercises at home; stating I never sit down at home so am doing a lot of exercises. Found aquatic therapy helpful. Has a tendency to overdo. States he was told this am he has a problem with his liver, has no idea about plan for treatment. Pain is in lumbar spine and into LE's in past. Tingling both feet, reports tests for circulation show no problem. Some numbness bilateral feet. States no reflexes in LE's. Pain anterior left hip since helping a friend clean jacuzzi tub yesterday. Also had increase in pain a couple weeks ago with a day of extensive walking. Prior Treatments and Tests Cortisone injection 4 wks ago, no pain since shot, pain medicaitons, aquatic PT. Future Testing and Treatments Planned Sees orthopedist [place] in 1 wk to discuss POC. Treatment Goals Patient/Caregiver Goals Strengthen his muscles and be able to resume prior functional level. Requests a couple more PT visits in the pool since he had to discontinue aquatic PT early. 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 PT-OP-D Balance Start: 04/23/19 15:12 Freq: Status: Active Protocol: Document 07/30/19 14:26 SAK (Rec: 07/30/19 16:10 [facility] [id number]) Balance Tests Brown Balance Test Brown Balance Test Score 42 PT-OP-E Functional Tests Start: 04/23/19 15:12 Freq: Status: Active Protocol: Document 07/30/19 14:26 [facility] (Rec: 07/30/19 16:10 [facility] [id number]) Functional Tests Dynamic Gait Index (DGI) Score 16 PT-OP-J Posture/Palpation/Skin Start: 04/23/19 15:12 Freq: Status: Active Protocol: Document 04/23/19 15:13 SAK (Rec: 04/24/19 14:48 [facility] [id number]) Posture Evaluation Position Standing Head/C-Spine Posture Forward Head T-Spine Posture Increased Kyphosis L-Spine Posture Increased Lordosis Shoulder Posture (L) Rounded,(R) Rounded,(L) Forward,(R) Forward Pelvis Posture Anteriorly Tilted Hip Posture (L) Externally Rotated,(R) Externally Rotated Palpation Assessment Location anterior left hip Palpation Findings Soft Tissue Tightness, Tenderness piriformis Palpation Findings Soft Tissue Tightness PT-OP-K Range of Motion Start: 04/23/19 15:12 Freq: Status: Active Protocol: Document 07/30/19 14:26 SAK (Rec: 07/30/19 16:10 [facility] [id number]) Lumbar Spine Range of Motion Lumbar Spine Active Flexion 40 Extension 15 Lateral Flexion Left 35 Lateral Flexion Right 35 ROM Limitations Soft Tissue Tightness Hip Goniometric Range of Motion Hip Left Straight Leg Raise 55 Right Straight Leg Raise 45 Hip ROM Limitations Hip ROM Limitations Soft Tissue Tightness,Pain Knee Goniometric Range of Motion Knee Left Knee ROM WFL Yes Right Knee ROM WFL Yes Ankle and Foot Goniometric Range of Motion Ankle and Foot renato Dorsiflexion with Knee Flexed 5 Dorsiflexion with Knee Extended 0 Plantarflexion 45 PT-OP-M Strength Start: 04/23/19 15:12 Freq: Status: Active Protocol: Document 07/30/19 14:26 SAK (Rec: 07/30/19 16:10 SAK [id number]) Trunk Strength Trunk Manual Muscle Testing Flexion 4- Good- Extension 4- Good- Hip Strength Hip Manual Muscle Testing Left Flexion (L2) 4 Good Extension (S1) 3- Fair- Abduction 3+ Fair+ External Rotation 4- Good- Internal Rotation 4 Good Right Flexion (L2) 4 Good Extension (S1) 3- Fair- Abduction 4- Good- External Rotation 4- Good- Internal Rotation 4 Good Knee Strength Knee Manual Muscle Testing Left Flexion (S2) 4+ Good+ Extension (L3) 4+ Good+ Right Flexion (S2) 4+ Good+ Extension (L3) 4- Good- Ankle/Foot Strength Ankle and Foot Manual Muscle Testing Left Dorsiflexion (L4) 4- Good- Plantarflexion (S1) 4 Good Right Dorsiflexion (L4) 4+ Good+ Plantarflexion (S1) 4 Good Toe Strength Toe Manual Muscle Testing Left Great Toe Extension 4- Good- Right Great Toe Flexion 4 Good PT-OP-Q Treatments Start: 04/23/19 15:12 Freq: Status: Active Protocol: Document 09/19/19 13:45 DCW (Rec: 09/19/19 14:38 DCW [id number]) Cardio Equipment Recumbent Stepper (Sci-Fit) Duration (Minutes) 16 Resistance 8 Other 3.26 Gym Equipment Shuttle Recovery Unilateral Squats Resistance 87# Shuttle Recovery Platform Stable Reps/Time 15x2 Bilateral Squats Resistance 150# Shuttle Recovery Platform Stable Reps/Time 15x2 Shuttle Balance chains red Details balance and weight shifts: WBOS, staggered feet, side to side Reps/Duration 10 Comments EC/EO, head turns narrow [place], stagger stance Therapeutic Exercises Supine Exercises hip flexor stretch Supine Exercise Name Simone Side bilateral Equipment Used strap Reps/Minutes 30x2 Comments side of mat table, knee flexion after 10 sec if ok usign strap HS stretch Equipment Used strap and manual assist Reps/Minutes 30x2 piriformis Side bilateral Reps/Minutes 30x2 SKTC Side bilateral Reps/Minutes 30x2 Sidelying Exercises reach and roll Reps/Minutes 5x ea Comments verbal and manual cues for spinal mobility Sitting Exercises Sciatic nerve floss Side left Reps/Minutes 3 Standing Exercises 1 Standing Exercise Name Calf Stretch Equipment Used JOHN Reps/Minutes 30 x 2 and rocking Comments pressure on pressure off PT-OP-R Modalities Start: 04/23/19 15:12 Freq: Status: Active Protocol: Document 09/19/19 13:45 DCW (Rec: 09/19/19 14:38 DCW [id number]) Hot Pack/Cold Pack Treatment L hip Location L Piriformis, ITB Patient Position Sidelying Treatment Duration (minutes) 15 Patient Tolerance Good PT-OP-S Aquatic Treatment Start: 04/23/19 15:12 Freq: Status: Active Protocol: Document 05/16/19 11:00 LJ (Rec: 05/16/19 15:06 LJ [id number]) Aquatics Treatment Pool Entry/Exit Pool Entry/Exit Method Stairs Assistance Independent Water Walking figure 8's around boxes Water Level Waist Level Comments 2 boxes forward and back backward step up on box Water Level Waist Level Comments better control this session quick reverses fwd/bck Water Level Chest Level Walking Equipment Resistance Fins Level of Assistance Verbal Cues stairs all directions Water Level Waist Level Comments 6 boxes march, straight leg march Water Level Chest Level Walking Equipment Ankle Weight- 5.0# Level of Assistance Verbal Cues Comments 2 laps fwd,bck,side Water Level Chest Level Walking Equipment Ankle Weight- 5.0# Level of Assistance Verbal Cues Lower Extremity Exercises resisted 90/90 hip ER Body Position Standing Water Level Waist Level Equipment hydroband Reps/Duration 15 bilat Comments band on stair rail and pt ankle HS curls Details standing at wall w/min hand support Body Position Standing Water Level Chest Level Equipment Ankle Weight- 5.0# Reps/Duration 2x10 bilat Comments cues for no hip flexion and erect posture HS curls and kickbacks Details standing at wall w/min hand support Body Position Standing Water Level Chest Level Equipment Ankle Weight- 5.0# Reps/Duration 2x10 bilat Comments cues for no hip flexion and erect posture CC,CCW Details standing at wall w/min hand support Body Position Standing Water Level Chest Level Equipment Ankle Weight- 5.0# Reps/Duration 2x 10 bilat Comments cues for core stab hip flex/ext, ab/ad Details standing at wall w/min hand support Body Position Standing Water Level Chest Level Equipment large resistance fins Reps/Duration 2x10 bilat Lower Extremity Stretches quads Details and hip flex Equipment Large Noodle Reps/Duration 2x1:00 lateral trunk and ITb stretch Body Position Standing Water Level Chest Level Reps/Duration 2 min static hold Comments holding wall hamstring, ITB, add Details at wall Body Position Standing Water Level Chest Level Equipment hydrofit cuffs and 1 lg noodle Reps/Duration [id number] hold Spinal Exercises trunk rotations Body Position Standing Water Level Chest Level Equipment hydroworks lg barbell Reps/Duration 15 each direction Comments verbal and manual cues [place] Activities [place] Activities Bicycle Duration 8 min PT-OP-T Assessment and Plan Start: 04/23/19 15:12 Freq: Status: Active Protocol: Document 09/19/19 13:45 DCW (Rec: 09/19/19 14:38 DCW [id number]) Physical Therapy Assessment Goals Gait and bal dysfunction Impairment Dynamic gait index (DGI) Short Term Goal (STG) Decrease fall risk as evidenced by improvement in DGI to at least 20 09/17/19: goal progress STG Duration 09/13/19 Mcc Goal (LTG) No reported falls, DGI improved to LTG Duration 10/29/19 Balance dysfunction Impairment Brown bal score 42/56 Short Term Goal (STG) Decrease fall risk as evidenced by improvement in Brown balance score to at least 48 09/17/19: goal progress STG Duration 09/13/19 Mcc Goal (LTG) No reported falls, Brown balance score greater than 50 LTG Duration 10/29/19 Recreational Activities 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 LTG Duration 10/29/19 Perceived Disability Impairment Modified Oswestry Score 36% Mcc Goal (LTG) Pt will grade overall perceived disability on the Modified Oswestry Questionnaire to 20% or less. LTG Duration 10/29/19 knowledge deficit Staff Psychiatrist Goal (LTG) Pt will report good tolerance and compliance to [facility] aquatic exercise program 09/17/19: has not recently done , will restart today LTG Duration 10/29/19 Activity tolerance Impairment Oswestry disability index score 57% Short Term Goal (STG) Decrease Oswestry score to no greater than 45% STG Duration Goal MET Staff Psychiatrist Goal (LTG) Decrease Oswestry score to no greater than 30% 11/01/18: GOAL PROGRESS 07/30/19: GOAL PROGRESS 09/17/19: goal progress, no falls LTG Duration 10/29/19 weakness Impairment Core and LE weakness Staff Psychiatrist Goal (LTG) Pt will have MMT of LE strength graded 4+/5 or greater 09/13/19: some goal progress LTG Duration 10/29/19 pain Impairment 6/10 pain in low back, LLE, right LE Short Term Goal (STG) Pt will report pain 4/10 or less with daily functional activities. 09/17/19: recent worsening. STG Duration 09/13/19 Mcc Goal (LTG) Pt will report pain 2/10 or less with daily functional activities. LTG Duration 10/29/19 Assessment Summary Assessment Pt still has not returned to aquatic exercises. Pt had multiple instances of muscle cramping during stretch. Pt entered clinic 15 minutes early and performed his SciFit exercise independently. Physical Therapy Plan Frequency and Duration Frequency of Treatment 2x/Week Duration of Treatment 8 wks Plan of Care Start Date 07/30/19 Plan of Care End Date 10/29/19 Therapeutic Interventions Therapeutic Interventions Aquatic Therapy,Home Exercise Program,Manual Therapy, Neuromuscular Re-education, Patient/Caregiver Education, Self-Care/Home Management,Soft Tissue Mobilization,Taping, Therapeutic Activities, Therapeutic Exercises Modalities Cold Pack/Ice Massage,Electric Stimulation,Hot Packs, Ultrasound Next Visit Focus/Plan Next Note Type Treatment Note Next Visit Plan Assess patient response to returning to aquatic exercise, review posture and body mechanics principles including patient usual activities for functional retraining. Emphasize importance of flexibility, nerve flossing.
--- NOTE | 2019-09-25 16:03 | PT.OTN ---
Current Diagnoses Low back pain (09/25/19) Pain in right leg (09/25/19) Pain in left leg (09/25/19) Difficulty in walking, not elsewhere classified (09/25/19) Weakness (09/25/19) Physical Therapy Treatment Note PT-OP-A Visit Information Start: 04/23/19 15:12 Freq: Status: Active Protocol: Document 09/25/19 13:45 SAK (Rec: 09/25/19 14:29 [facility] [id number]) Out-Patient Physical Therapy Visit Information Visit Information Visit Type Treatment Note Visit Start Time 13:45 Visit Stop Time 14:45 Total Visit Minutes 60 Visit Number 21 Number of STAFF ASSISTANT Visits 0 PT-OP-B Current Condition Start: 04/23/19 15:12 Freq: Status: Active Protocol: Document 04/23/19 15:13 SAK (Rec: 04/23/19 16:05 [facility] [id number]) Current Condition History of Current Condition Onset Date 2 yrs Current Complaints LBP History of Current Condition Reports persistent, function- limiting LBP with residual weakness in LE's. Previously having PT with best benefit from aquatic PT but had to discontinue due to medical issues. Underwent spinal decompression 2 years ago with no relief of pain. Has now had second opinion appointment and will be consulting further. Cortisone injection 4 wks ago helpful, has been trying to gradually increase his activity level to not overdo it. Not doing any exercises at home; stating I never sit down at home so am doing a lot of exercises. Found aquatic therapy helpful. Has a tendency to overdo. States he was told this am he has a problem with his liver, has no idea about plan for treatment. Pain is in lumbar spine and into LE's in past. Tingling both feet, reports tests for circulation show no problem. Some numbness bilateral feet. States no reflexes in LE's. Pain anterior left hip since helping a friend clean jacuzzi tub yesterday. Also had increase in pain a couple weeks ago with a day of extensive walking. Prior Treatments and Tests Cortisone injection 4 wks ago, no pain since shot, pain medicaitons, aquatic PT. Future Testing and Treatments Planned Sees orthopedist at [place] in 1 wk to discuss POC. Treatment Goals Patient/Caregiver Goals Strengthen his muscles and be able to resume prior functional level. Requests a couple more PT visits in the pool since he had to discontinue aquatic PT early. 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 States when he uses his inversion table he does it for around 3 min partially inverted and then 3 min fully inverted. PT-OP-D Balance Start: 04/23/19 15:12 Freq: Status: Active Protocol: Document 07/30/19 14:26 [facility] (Rec: 07/30/19 16:10 [facility] [id number]) Balance Tests Brown Balance Test Brown Balance Test Score 42 PT-OP-E Functional Tests Start: 04/23/19 15:12 Freq: Status: Active Protocol: Document 07/30/19 14:26 [facility] (Rec: 07/30/19 16:10 [facility] [id number]) Functional Tests Dynamic Gait Index (DGI) Score 16 PT-OP-J Posture/Palpation/Skin Start: 04/23/19 15:12 Freq: Status: Active Protocol: Document 04/23/19 15:13 [facility] (Rec: 04/24/19 14:48 [facility] [id number]) Posture Evaluation Position Standing Head/C-Spine Posture Forward Head T-Spine Posture Increased Kyphosis L-Spine Posture Increased Lordosis Shoulder Posture (L) Rounded,(R) Rounded,(L) Forward,(R) Forward Pelvis Posture Anteriorly Tilted Hip Posture (L) Externally Rotated,(R) Externally Rotated Palpation Assessment Location anterior left hip Palpation Findings Soft Tissue Tightness, Tenderness piriformis Palpation Findings Soft Tissue Tightness PT-OP-K Range of Motion Start: 04/23/19 15:12 Freq: Status: Active Protocol: Document 07/30/19 14:26 [facility] (Rec: 07/30/19 16:10 [facility] [id number]) Lumbar Spine Range of Motion Lumbar Spine Active Flexion 40 Extension 15 Lateral Flexion Left 35 Lateral Flexion Right 35 ROM Limitations Soft Tissue Tightness Hip Goniometric Range of Motion Hip Left Straight Leg Raise 55 Right Straight Leg Raise 45 Hip ROM Limitations Hip ROM Limitations Soft Tissue Tightness,Pain Knee Goniometric Range of Motion Knee Left Knee ROM WFL Yes Right Knee ROM WFL Yes Ankle and Foot Goniometric Range of Motion Ankle and Foot renato Dorsiflexion with Knee Flexed 5 Dorsiflexion with Knee Extended 0 Plantarflexion 45 PT-OP-M Strength Start: 04/23/19 15:12 Freq: Status: Active Protocol: Document 07/30/19 14:26 [facility] (Rec: 07/30/19 16:10 [facility] [id number]) Trunk Strength Trunk Manual Muscle Testing Flexion 4- Good- Extension 4- Good- Hip Strength Hip Manual Muscle Testing Left Flexion (L2) 4 Good Extension (S1) 3- Fair- Abduction 3+ Fair+ External Rotation 4- Good- Internal Rotation 4 Good Right Flexion (L2) 4 Good Extension (S1) 3- Fair- Abduction 4- Good- External Rotation 4- Good- Internal Rotation 4 Good Knee Strength Knee Manual Muscle Testing Left Flexion (S2) 4+ Good+ Extension (L3) 4+ Good+ Right Flexion (S2) 4+ Good+ Extension (L3) 4- Good- Ankle/Foot Strength Ankle and Foot Manual Muscle Testing Left Dorsiflexion (L4) 4- Good- Plantarflexion (S1) 4 Good Right Dorsiflexion (L4) 4+ Good+ Plantarflexion (S1) 4 Good Toe Strength Toe Manual Muscle Testing Left Great Toe Extension 4- Good- Right Great Toe Flexion 4 Good PT-OP-Q Treatments Start: 04/23/19 15:12 Freq: Status: Active Protocol: Document 09/25/19 13:45 [facility] (Rec: 09/25/19 14:29 [facility] [id number]) Cardio Equipment Recumbent Stepper (Sci-Fit) Duration (Minutes) 15 Resistance 7 Other 2.83 Therapeutic Exercises Supine Exercises ITB Reps/Minutes 2x Comments strap hip flexor stretch Supine Exercise Name Simone Side bilateral Equipment Used strap Reps/Minutes 30x2 HS stretch Equipment Used strap and manual assist Reps/Minutes 30x2 piriformis Side bilateral Reps/Minutes 30x2 Comments manual assist SKTC Side bilateral Reps/Minutes 30x2 Comments manual assist Manual Therapy Treatment Soft Tissue Mobilization TFL, glut med, PF Body Location L Mobilization Type Cross-Friction,Sustained Pressure Intensity/Depth Moderate PT-OP-R Modalities Start: 04/23/19 15:12 Freq: Status: Active Protocol: Document 09/25/19 13:45 SAK (Rec: 09/25/19 16:03 SAK [id number]) Hot Pack/Cold Pack Treatment L hip Location L Piriformis, ITB Patient Position Sidelying Treatment Duration (minutes) 15 Patient Tolerance Good Spinal Traction Traction Treatment Lumbar Traction Treatment Comment attempted but harness slides off due to patient body type, unable to use effectively. PT-OP-S Aquatic Treatment Start: 04/23/19 15:12 Freq: Status: Active Protocol: Document 05/16/19 11:00 LJ (Rec: 05/16/19 15:06 LJ [id number]) Aquatics Treatment Pool Entry/Exit Pool Entry/Exit Method Stairs Assistance Independent Water Walking figure 8's around boxes Water Level Waist Level Comments 2 boxes forward and back backward step up on box Water Level Waist Level Comments better control this session quick reverses fwd/bck Water Level Chest Level Walking Equipment Resistance Fins Level of Assistance Verbal Cues stairs all directions Water Level Waist Level Comments 6 boxes march, straight leg september Water Level Chest Level Walking Equipment Ankle Weight- 5.0# Level of Assistance Verbal Cues Comments 2 laps fwd,bck,side Water Level Chest Level Walking Equipment Ankle Weight- 5.0# Level of Assistance Verbal Cues Lower Extremity Exercises resisted 90/90 hip ER Body Position Standing Water Level Waist Level Equipment hydroband Reps/Duration 15 bilat Comments band on stair rail and pt ankle HS curls Details standing at wall w/min hand support Body Position Standing Water Level Chest Level Equipment Ankle Weight- 5.0# Reps/Duration 2x10 bilat Comments cues for no hip flexion and erect posture HS curls and kickbacks Details standing at wall w/min hand support Body Position Standing Water Level Chest Level Equipment Ankle Weight- 5.0# Reps/Duration 2x10 bilat Comments cues for no hip flexion and erect posture CC,CCW Details standing at wall w/min hand support Body Position Standing Water Level Chest Level Equipment Ankle Weight- 5.0# Reps/Duration 2x 10 bilat Comments cues for core stab hip flex/ext, ab/ad Details standing at wall w/min hand support Body Position Standing Water Level Chest Level Equipment large resistance fins Reps/Duration 2x10 bilat Lower Extremity Stretches quads Details and hip flex Equipment Large Noodle Reps/Duration 2x1:00 lateral trunk and ITb stretch Body Position Standing Water Level Chest Level Reps/Duration 2 min static hold Comments holding wall hamstring, ITB, add Details at wall Body Position Standing Water Level Chest Level Equipment hydrofit cuffs and 1 lg noodle Reps/Duration [id number] hold Spinal Exercises trunk rotations Body Position Standing Water Level Chest Level Equipment hydroworks lg barbell Reps/Duration 15 each direction Comments verbal and manual cues [place] Activities [place] Activities Bicycle Duration 8 min PT-OP-T Assessment and Plan Start: 04/23/19 15:12 Freq: Status: Active Protocol: Document 09/25/19 13:45 OSMAR (Rec: 09/25/19 16:03 [facility] [id number]) Physical Therapy Assessment Goals Gait and bal dysfunction Impairment Dynamic gait index (DGI) Short Term Goal (STG) Decrease fall risk as evidenced by improvement in DGI to at least 20 09/17/19: goal progress STG Duration 09/13/19 Long-Term Goal (LTG) No reported falls, DGI improved to 24 LTG Duration 10/29/19 Balance dysfunction Impairment Brown bal score 42/56 Short Term Goal (STG) Decrease fall risk as evidenced by improvement in Brown balance score to at least 48 09/17/19: goal progress STG Duration 09/13/19 Long-Term Goal (LTG) No reported falls, Brown balance score greater than 50 LTG Duration 10/29/19 Recreational Activities 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 LTG Duration 10/29/19 Perceived Disability Impairment Modified Oswestry Score 36% Rail Signal Worker Goal (LTG) Pt will grade overall perceived disability on the Modified Oswestry Questionnaire to 20% or less. LTG Duration 10/29/19 knowledge deficit Long-Term Goal (LTG) Pt will report good tolerance and compliance to indep aquatic exercise program 09/17/19: has not recently done , will restart today LTG Duration 10/29/19 Activity tolerance Impairment Oswestry disability index score 57% Short Term Goal (STG) Decrease Oswestry score to no greater than 45% STG Duration Goal MET Long-Term Goal (LTG) Decrease Oswestry score to no greater than 30% 11/01/18: GOAL PROGRESS 07/30/19: GOAL PROGRESS 09/17/19: goal progress, no falls LTG Duration 10/29/19 weakness Impairment Core and LE weakness Long-Term Goal (LTG) Pt will have MMT of LE strength graded 4+/5 or greater 09/13/19: some goal progress LTG Duration 10/29/19 pain Impairment 6/10 pain in low back, LLE, right LE Short Term Goal (STG) Pt will report pain 4/10 or less with daily functional activities. 09/17/19: recent worsening. STG Duration 09/13/19 Rail Signal Worker Goal (LTG) Pt will report pain 2/10 or less with daily functional activities. LTG Duration 10/29/19 Assessment Summary Assessment Patient has not gone to the pool yet for aquatic exercises . Mechanical traction not effective, patient instructed to modify his use of inversion table at home to partial inversion for 10 min. Also encouraged stretching HEP at home as currently has poor compliance. Physical Therapy Plan Frequency and Duration Frequency of Treatment 2x/Week Duration of Treatment 8 wks Plan of Care Start Date 07/30/19 Plan of Care End Date 10/29/19 Therapeutic Interventions Therapeutic Interventions Aquatic Therapy,Home Exercise Program,Manual Therapy, Neuromuscular Re-education, Patient/Caregiver Education, Self-Care/Home Management,Soft Tissue Mobilization,Taping, Therapeutic Activities, Therapeutic Exercises Modalities Cold Pack/Ice Massage,Electric Stimulation,Hot Packs, Ultrasound Next Visit Focus/Plan Next Note Type Treatment Note Next Visit Plan Assess patient response to returning to aquatic exercise, assess compliance to HEP, modification of inversion table. Further body mechanics and posture training.
--- NOTE | 2019-09-28 08:15 | PT.OTN ---
Current Diagnoses Low back pain (09/28/19) Pain in right leg (09/28/19) Pain in left leg (09/28/19) Difficulty in walking, not elsewhere classified (09/28/19) Weakness (09/28/19) Physical Therapy Treatment Note PT-OP-A Visit Information Start: 04/23/19 15:12 Freq: Status: Active Protocol: Document 09/28/19 07:33 SP (Rec: 09/28/19 08:18 SP [id number]) Out-Patient Physical Therapy Visit Information Visit Information Visit Type Treatment Note Visit Start Time 07:33 Visit Stop Time 08:15 Total Visit Minutes 42 Visit Number 23 Number of ENERGY EFFICIENT SITE MANAGER Visits 1 PT-OP-B Current Condition Start: 04/23/19 15:12 Freq: Status: Active Protocol: Document 04/23/19 15:13 SAK (Rec: 04/23/19 16:05 SAK [id number]) Current Condition History of Current Condition Onset Date 2 yrs Current Complaints LBP History of Current Condition Reports persistent, function- limiting LBP with residual weakness in LE's. Previously having PT with best benefit from aquatic PT but had to discontinue due to medical issues. Underwent spinal decompression 2 years ago with no relief of pain. Has now had second opinion appointment and will be consulting further. Cortisone injection 4 wks ago helpful, has been trying to gradually increase his activity level to not overdo it. Not doing any exercises at home; stating I never sit down at home so am doing a lot of exercises. Found aquatic therapy helpful. Has a tendency to overdo. States he was told this am he has a problem with his liver, has no idea about plan for treatment. Pain is in lumbar spine and into LE's in past. Tingling both feet, reports tests for circulation show no problem. Some numbness bilateral feet. States no reflexes in LE's. Pain anterior left hip since helping a friend clean jacuzzi tub yesterday. Also had increase in pain a couple weeks ago with a day of extensive walking. Prior Treatments and Tests Cortisone injection 4 wks ago, no pain since shot, pain medicaitons, aquatic PT. Future Testing and Treatments Planned Sees orthopedist at [place] in 1 wk to discuss POC. Treatment Goals Patient/Caregiver Goals Strengthen his muscles and be able to resume prior functional level. Requests a couple more PT visits in the pool since he had to discontinue aquatic PT early. 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 Pt stated LB does still have pain but after perform stretches is good for couple of hours. PT-OP-D Balance Start: 04/23/19 15:12 Freq: Status: Active Protocol: Document 07/30/19 14:26 [facility] (Rec: 07/30/19 16:10 [facility] [id number]) Balance Tests Brown Balance Test Brown Balance Test Score 42 PT-OP-E Functional Tests Start: 04/23/19 15:12 Freq: Status: Active Protocol: Document 07/30/19 14:26 [facility] (Rec: 07/30/19 16:10 [facility] [id number]) Functional Tests Dynamic Gait Index (DGI) Score 16 PT-OP-J Posture/Palpation/Skin Start: 04/23/19 15:12 Freq: Status: Active Protocol: Document 04/23/19 15:13 [facility] (Rec: 04/24/19 14:48 [facility] [id number]) Posture Evaluation Position Standing Head/C-Spine Posture Forward Head T-Spine Posture Increased Kyphosis L-Spine Posture Increased Lordosis Shoulder Posture (L) Rounded,(R) Rounded,(L) Forward,(R) Forward Pelvis Posture Anteriorly Tilted Hip Posture (L) Externally Rotated,(R) Externally Rotated Palpation Assessment Location anterior left hip Palpation Findings Soft Tissue Tightness, Tenderness piriformis Palpation Findings Soft Tissue Tightness PT-OP-K Range of Motion Start: 04/23/19 15:12 Freq: Status: Active Protocol: Document 07/30/19 14:26 [facility] (Rec: 07/30/19 16:10 [facility] [id number]) Lumbar Spine Range of Motion Lumbar Spine Active Flexion 40 Extension 15 Lateral Flexion Left 35 Lateral Flexion Right 35 ROM Limitations Soft Tissue Tightness Hip Goniometric Range of Motion Hip Left Straight Leg Raise 55 Right Straight Leg Raise 45 Hip ROM Limitations Hip ROM Limitations Soft Tissue Tightness,Pain Knee Goniometric Range of Motion Knee Left Knee ROM WFL Yes Right Knee ROM WFL Yes Ankle and Foot Goniometric Range of Motion Ankle and Foot renato Dorsiflexion with Knee Flexed 5 Dorsiflexion with Knee Extended 0 Plantarflexion 45 PT-OP-M Strength Start: 04/23/19 15:12 Freq: Status: Active Protocol: Document 07/30/19 14:26 [facility] (Rec: 07/30/19 16:10 [facility] [id number]) Trunk Strength Trunk Manual Muscle Testing Flexion 4- Good- Extension 4- Good- Hip Strength Hip Manual Muscle Testing Left Flexion (L2) 4 Good Extension (S1) 3- Fair- Abduction 3+ Fair+ External Rotation 4- Good- Internal Rotation 4 Good Right Flexion (L2) 4 Good Extension (S1) 3- Fair- Abduction 4- Good- External Rotation 4- Good- Internal Rotation 4 Good Knee Strength Knee Manual Muscle Testing Left Flexion (S2) 4+ Good+ Extension (L3) 4+ Good+ Right Flexion (S2) 4+ Good+ Extension (L3) 4- Good- Ankle/Foot Strength Ankle and Foot Manual Muscle Testing Left Dorsiflexion (L4) 4- Good- Plantarflexion (S1) 4 Good Right Dorsiflexion (L4) 4+ Good+ Plantarflexion (S1) 4 Good Toe Strength Toe Manual Muscle Testing Left Great Toe Extension 4- Good- Right Great Toe Flexion 4 Good PT-OP-Q Treatments Start: 04/23/19 15:12 Freq: Status: Active Protocol: Document 09/28/19 07:33 SP (Rec: 09/28/19 08:18 SP [id number]) Cardio Equipment Recumbent Stepper (Sci-Fit) Duration (Minutes) 11 Resistance 7 Other 2.03 Therapeutic Exercises Supine Exercises Trunk rotation LS Side bilateral Reps/Minutes 30 x3 Comments stated popped in LB and pain went away ITB Side bilateral Reps/Minutes 2x Comments strap TrA with hip ab/ER Supine Exercise Name Trans Ab w/ SLR hip ER Resistance AROM Reps/Minutes x10 Comments cued PPT, slow muscular control and breath (count) hip flexor stretch Supine Exercise Name Simone Side bilateral Equipment Used strap Reps/Minutes 30x2 HS stretch Side bilateral Equipment Used strap and manual assist Reps/Minutes 30x2 Comments cued knee extension and slow elevate before knee bends hold 30! Standing Exercises 4 way hip Equipment Used L2 TB Reps/Minutes 10x Sit to stand Equipment Used Chair w/ foam pad Reps/Minutes 5x2 Comments cued for hip hinge and pressing through heels 1 Standing Exercise Name Calf Stretch Equipment Used JOHN Reps/Minutes 30 x 2 and rocking Comments pressure on pressure off, cued hold calf stretch 30!! shoulder extension Resistance L2 TB Reps/Minutes 10x5 PT-OP-R Modalities Start: 04/23/19 15:12 Freq: Status: Active Protocol: Document 09/25/19 13:45 SAK (Rec: 09/25/19 16:03 SAK [id number]) Hot Pack/Cold Pack Treatment L hip Location L Piriformis, ITB Patient Position Sidelying Treatment Duration (minutes) 15 Patient Tolerance Good Spinal Traction Traction Treatment Lumbar Traction Treatment Comment attempted but harness slides off due to patient body type, unable to use effectively. PT-OP-S Aquatic Treatment Start: 04/23/19 15:12 Freq: Status: Active Protocol: Document 05/16/19 11:00 JAMIN (Rec: 05/16/19 15:06 LJ [id number]) Aquatics Treatment Pool Entry/Exit Pool Entry/Exit Method Stairs Assistance Independent Water Walking figure 8's around boxes Water Level Waist Level Comments 2 boxes forward and back backward step up on box Water Level Waist Level Comments better control this session quick reverses fwd/bck Water Level Chest Level Walking Equipment Resistance Fins Level of Assistance Verbal Cues stairs all directions Water Level Waist Level Comments 6 boxes march, straight leg september Water Level Chest Level Walking Equipment Ankle Weight- 5.0# Level of Assistance Verbal Cues Comments 2 laps fwd,bck,side Water Level Chest Level Walking Equipment Ankle Weight- 5.0# Level of Assistance Verbal Cues Lower Extremity Exercises resisted 90/90 hip ER Body Position Standing Water Level Waist Level Equipment hydroband Reps/Duration 15 bilat Comments band on stair rail and pt ankle HS curls Details standing at wall w/min hand support Body Position Standing Water Level Chest Level Equipment Ankle Weight- 5.0# Reps/Duration 2x10 bilat Comments cues for no hip flexion and erect posture HS curls and kickbacks Details standing at wall w/min hand support Body Position Standing Water Level Chest Level Equipment Ankle Weight- 5.0# Reps/Duration 2x10 bilat Comments cues for no hip flexion and erect posture CC,CCW Details standing at wall w/min hand support Body Position Standing Water Level Chest Level Equipment Ankle Weight- 5.0# Reps/Duration 2x 10 bilat Comments cues for core stab hip flex/ext, ab/ad Details standing at wall w/min hand support Body Position Standing Water Level Chest Level Equipment large resistance fins Reps/Duration 2x10 bilat Lower Extremity Stretches quads Details and hip flex Equipment Large Noodle Reps/Duration 2x1:00 lateral trunk and ITb stretch Body Position Standing Water Level Chest Level Reps/Duration 2 min static hold Comments holding wall hamstring, ITB, add Details at wall Body Position Standing Water Level Chest Level Equipment hydrofit cuffs and 1 lg noodle Reps/Duration [id number] hold Spinal Exercises trunk rotations Body Position Standing Water Level Chest Level Equipment hydroworks lg barbell Reps/Duration 15 each direction Comments verbal and manual cues [place] Activities [place] Activities Bicycle Duration 8 min PT-OP-T Assessment and Plan Start: 04/23/19 15:12 Freq: Status: Active Protocol: Document 09/28/19 07:33 SP (Rec: 09/28/19 08:18 SP [id number]) Physical Therapy Assessment Goals Gait and bal dysfunction Impairment Dynamic gait index (DGI) Short Term Goal (STG) Decrease fall risk as evidenced by improvement in DGI to at least 20 09/17/19: goal progress STG Duration 09/13/19 Fpc Goal (LTG) No reported falls, DGI improved to LTG Duration 10/29/19 Balance dysfunction Impairment Brown bal score 42/56 Short Term Goal (STG) Decrease fall risk as evidenced by improvement in Brown balance score to at least 48 09/17/19: goal progress STG Duration 09/13/19 Prenatal Nurse Goal (LTG) No reported falls, Brown balance score greater than 50 LTG Duration 10/29/19 Recreational Activities 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 LTG Duration 10/29/19 Perceived Disability Impairment Modified Oswestry Score 36% Prenatal Nurse Goal (LTG) Pt will grade overall perceived disability on the Modified Oswestry Questionnaire to 20% or less. LTG Duration 10/29/19 knowledge deficit Prenatal Nurse Goal (LTG) Pt will report good tolerance and compliance to [facility] aquatic exercise program 09/17/19: has not recently done , will restart today LTG Duration 10/29/19 Activity tolerance Impairment Oswestry disability index score 57% Short Term Goal (STG) Decrease Oswestry score to no greater than 45% STG Duration Goal MET Fpc Goal (LTG) Decrease Oswestry score to no greater than 30% 11/01/18: GOAL PROGRESS 07/30/19: GOAL PROGRESS 09/17/19: goal progress, no falls LTG Duration 10/29/19 weakness Impairment Core and LE weakness Prenatal Nurse Goal (LTG) Pt will have MMT of LE strength graded 4+/5 or greater 09/13/19: some goal progress LTG Duration 10/29/19 pain Impairment 6/10 pain in low back, LLE, right LE Short Term Goal (STG) Pt will report pain 4/10 or less with daily functional activities. 09/17/19: recent worsening. STG Duration 09/13/19 Fpc Goal (LTG) Pt will report pain 2/10 or less with daily functional activities. LTG Duration 10/29/19 Assessment Summary Assessment Pt improved in proper form and easing into/holding and allow stretch to perform. Pt initially bounces but able self correct post education. Focused exercises on hip and core activation for spinal stabiliization during gait and decrease LBP with improvement in decreased [place] gait leaving. There are only pool appts scheduled, unsure if patient is supposed to continue land, PT/ENERGY EFFICIENT SITE MANAGER at pool will add more appts using purple paper if more land appts needed. Will notify PT via email as well. Pt reported no adverse reactions to tx today feels ok. Physical Therapy Plan Frequency and Duration Frequency of Treatment 2x/Week Duration of Treatment 8 wks Plan of Care Start Date 07/30/19 Plan of Care End Date 10/29/19 Therapeutic Interventions Therapeutic Interventions Aquatic Therapy,Home Exercise Program,Manual Therapy, Neuromuscular Re-education, Patient/Caregiver Education, Self-Care/Home Management,Soft Tissue Mobilization,Taping, Therapeutic Activities, Therapeutic Exercises Modalities Cold Pack/Ice Massage,Electric Stimulation,Hot Packs, Ultrasound Next Visit Focus/Plan Next Note Type Treatment Note Next Visit Plan Assess patient response to returning to land stretching and core/LE strenthening last tx assess. compliance to HEP, modification of inversion table. Further body mechanics and posture training.
--- NOTE | 2019-10-01 14:24 | PT.OTN ---
Current Diagnoses Low back pain (09/28/19) Pain in right leg (09/28/19) Pain in left leg (09/28/19) Difficulty in walking, not elsewhere classified (09/28/19) Weakness (09/28/19) Physical Therapy Treatment Note PT-OP-A Visit Information Start: 04/23/19 15:12 Freq: Status: Active Protocol: Document 10/01/19 11:00 LJ (Rec: 10/01/19 14:24 LJ [id number]) Out-Patient Physical Therapy Visit Information Visit Information Visit Type Aquatic Treatment Note Visit Start Time 11:45 Visit Stop Time 12:30 Total Visit Minutes 45 Visit Number 24 Number of DRUG SAFETY ASSISTANT Visits 2 PT-OP-B Current Condition Start: 04/23/19 15:12 Freq: Status: Active Protocol: Document 04/23/19 15:13 SAK (Rec: 04/23/19 16:05 SAK [id number]) Current Condition History of Current Condition Onset Date 2 yrs Current Complaints LBP History of Current Condition Reports persistent, function- limiting LBP with residual weakness in LE's. Previously having PT with best benefit from aquatic PT but had to discontinue due to medical issues. Underwent spinal decompression 2 years ago with no relief of pain. Has now had second opinion appointment and will be consulting further. Cortisone injection 4 wks ago helpful, has been trying to gradually increase his activity level to not overdo it. Not doing any exercises at home; stating I never sit down at home so am doing a lot of exercises. Found aquatic therapy helpful. Has a tendency to overdo. States he was told this am he has a problem with his liver, has no idea about plan for treatment. Pain is in lumbar spine and into LE's in past. Tingling both feet, reports tests for circulation show no problem. Some numbness bilateral feet. States no reflexes in LE's. Pain anterior left hip since helping a friend clean jacuzzi tub yesterday. Also had increase in pain a couple weeks ago with a day of extensive walking. Prior Treatments and Tests Cortisone injection 4 wks ago, no pain since shot, pain medicaitons, aquatic PT. Future Testing and Treatments Planned Sees orthopedist [place] in 1 wk to discuss POC. Treatment Goals Patient/Caregiver Goals Strengthen his muscles and be able to resume prior functional level. Requests a couple more PT visits in the pool since he had to discontinue aquatic PT early. 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 He believes it is caused by a damaged nerve. States he gets better exercise in the water because he can stretch more and has resistance in all directions. PT-OP-D Balance Start: 04/23/19 15:12 Freq: Status: Active Protocol: Document 07/30/19 14:26 [facility] (Rec: 07/30/19 16:10 [facility] [id number]) Balance Tests Brown Balance Test Brown Balance Test Score 42 PT-OP-E Functional Tests Start: 04/23/19 15:12 Freq: Status: Active Protocol: Document 07/30/19 14:26 [facility] (Rec: 07/30/19 16:10 [facility] [id number]) Functional Tests Dynamic Gait Index (DGI) Score 16 PT-OP-J Posture/Palpation/Skin Start: 04/23/19 15:12 Freq: Status: Active Protocol: Document 04/23/19 15:13 [facility] (Rec: 04/24/19 14:48 [facility] [id number]) Posture Evaluation Position Standing Head/C-Spine Posture Forward Head T-Spine Posture Increased Kyphosis L-Spine Posture Increased Lordosis Shoulder Posture (L) Rounded,(R) Rounded,(L) Forward,(R) Forward Pelvis Posture Anteriorly Tilted Hip Posture (L) Externally Rotated,(R) Externally Rotated Palpation Assessment Location anterior left hip Palpation Findings Soft Tissue Tightness, Tenderness piriformis Palpation Findings Soft Tissue Tightness PT-OP-K Range of Motion Start: 04/23/19 15:12 Freq: Status: Active Protocol: Document 07/30/19 14:26 [facility] (Rec: 07/30/19 16:10 [facility] [id number]) Lumbar Spine Range of Motion Lumbar Spine Active Flexion 40 Extension 15 Lateral Flexion Left 35 Lateral Flexion Right 35 ROM Limitations Soft Tissue Tightness Hip Goniometric Range of Motion Hip Left Straight Leg Raise 55 Right Straight Leg Raise 45 Hip ROM Limitations Hip ROM Limitations Soft Tissue Tightness,Pain Knee Goniometric Range of Motion Knee Left Knee ROM WFL Yes Right Knee ROM WFL Yes Ankle and Foot Goniometric Range of Motion Ankle and Foot renato Dorsiflexion with Knee Flexed 5 Dorsiflexion with Knee Extended 0 Plantarflexion 45 PT-OP-M Strength Start: 04/23/19 15:12 Freq: Status: Active Protocol: Document 07/30/19 14:26 [facility] (Rec: 07/30/19 16:10 [facility] [id number]) Trunk Strength Trunk Manual Muscle Testing Flexion 4- Good- Extension 4- Good- Hip Strength Hip Manual Muscle Testing Left Flexion (L2) 4 Good Extension (S1) 3- Fair- Abduction 3+ Fair+ External Rotation 4- Good- Internal Rotation 4 Good Right Flexion (L2) 4 Good Extension (S1) 3- Fair- Abduction 4- Good- External Rotation 4- Good- Internal Rotation 4 Good Knee Strength Knee Manual Muscle Testing Left Flexion (S2) 4+ Good+ Extension (L3) 4+ Good+ Right Flexion (S2) 4+ Good+ Extension (L3) 4- Good- Ankle/Foot Strength Ankle and Foot Manual Muscle Testing Left Dorsiflexion (L4) 4- Good- Plantarflexion (S1) 4 Good Right Dorsiflexion (L4) 4+ Good+ Plantarflexion (S1) 4 Good Toe Strength Toe Manual Muscle Testing Left Great Toe Extension 4- Good- Right Great Toe Flexion 4 Good PT-OP-Q Treatments Start: 04/23/19 15:12 Freq: Status: Active Protocol: Document 09/28/19 07:33 SP (Rec: 09/28/19 08:18 SP [id number]) Cardio Equipment Recumbent Stepper (Sci-Fit) Duration (Minutes) 11 Resistance 7 Other 2.03 Therapeutic Exercises Supine Exercises Trunk rotation LS Side bilateral Reps/Minutes 30 x3 Comments stated popped in LB and pain went away ITB Side bilateral Reps/Minutes 2x Comments strap TrA with hip ab/ER Supine Exercise Name Trans Ab w/ SLR hip ER Resistance AROM Reps/Minutes x10 Comments cued PPT, slow muscular control and breath (count) hip flexor stretch Supine Exercise Name Simone Side bilateral Equipment Used strap Reps/Minutes 30x2 HS stretch Side bilateral Equipment Used strap and manual assist Reps/Minutes 30x2 Comments cued knee extension and slow elevate before knee bends hold 30! Standing Exercises 4 way hip Equipment Used L2 TB Reps/Minutes 10x Sit to stand Equipment Used Chair w/ foam pad Reps/Minutes 5x2 Comments cued for hip hinge and pressing through heels 1 Standing Exercise Name Calf Stretch Equipment Used JOHN Reps/Minutes 30 x 2 and rocking Comments pressure on pressure off, cued hold calf stretch 30!! shoulder extension Resistance L2 TB Reps/Minutes 10x5 PT-OP-R Modalities Start: 04/23/19 15:12 Freq: Status: Active Protocol: Document 09/25/19 13:45 SAK (Rec: 09/25/19 16:03 SAK [id number]) Hot Pack/Cold Pack Treatment L hip Location L Piriformis, ITB Patient Position Sidelying Treatment Duration (minutes) 15 Patient Tolerance Good Spinal Traction Traction Treatment Lumbar Traction Treatment Comment attempted but harness slides off due to patient body type, unable to use effectively. PT-OP-S Aquatic Treatment Start: 04/23/19 15:12 Freq: Status: Active Protocol: Document 10/01/19 11:00 LJ (Rec: 10/01/19 14:24 LJ [id number]) Aquatics Treatment Pool Entry/Exit Pool Entry/Exit Method Stairs Water Walking lunge walking Water Level Chest Level Walking Equipment Ankle Weight- 5.0# march, straight leg september Water Level Chest Level Walking Equipment Ankle Weight- 5.0# Comments 2 laps fwd,bck,side Water Level Chest Level Walking Equipment Ankle Weight- 5.0# Level of Assistance Verbal Cues Lower Extremity Exercises HS curls Details standing at wall w/min hand support Body Position Standing Water Level Chest Level Equipment Ankle Weight- 5.0# Reps/Duration 2x10 bilat Comments cues for no hip flexion and erect posture HS curls and kickbacks Details standing at wall w/min hand support Body Position Standing Water Level Chest Level Equipment Ankle Weight- 5.0# Reps/Duration 2x10 bilat Comments cues for no hip flexion and erect posture CC,CCW Details standing at wall w/min hand support Body Position Standing Water Level Chest Level Equipment Ankle Weight- 5.0# Reps/Duration 2x 10 bilat Comments cues for core stab hip flex/ext, ab/ad Details standing at wall w/min hand support Body Position Standing Water Level Chest Level Equipment large resistance fins Reps/Duration 2x10 bilat Lower Extremity Stretches quads Details and hip flex Equipment Large Noodle Reps/Duration 2x1:00 lateral trunk and ITb stretch Body Position Standing Water Level Chest Level Reps/Duration 2 min static hold Comments holding wall HC Body Position Standing Water Level Chest Level Comments 2x 30sec bilat piriformis, hip ER Comments 2x 30 sec bilat hamstring, ITB, add Details at wall Body Position Standing Water Level Chest Level Equipment hydrofit cuffs and 1 lg noodle Reps/Duration [id number] hold Upper Extremity Exercises bicep, tricep Body Position Standing Water Level Chest Level Equipment lg hydro bells Comments cues for core stab hor ab/ad, flex/ext Body Position Standing Water Level Chest Level Equipment lg hand bells Reps/Duration 15 bilat x2 Spinal Exercises trunk rotations Body Position Standing Water Level Chest Level Equipment hydroworks lg barbell Reps/Duration 15 each direction Comments verbal and manual cues [place] Bicycle,Cross Country,Running Duration 15 min PT-OP-T Assessment and Plan Start: 04/23/19 15:12 Freq: Status: Active Protocol: Document 10/01/19 11:00 JAMIN (Rec: 10/01/19 14:24 JAMIN [id number]) Physical Therapy Assessment Goals Gait and bal dysfunction Impairment Dynamic gait index (DGI) Short Term Goal (STG) Decrease fall risk as evidenced by improvement in DGI to at least 20 09/17/19: goal progress STG Duration 09/13/19 [employer] Goal (LTG) No reported falls, DGI improved to 22 LTG Duration 10/29/19 Balance dysfunction Impairment Brown bal score 42/56 Short Term Goal (STG) Decrease fall risk as evidenced by improvement in Brown balance score to at least 48 09/17/19: goal progress STG Duration 09/13/19 [facility] Goal (LTG) No reported falls, Brown balance score greater than 50 LTG Duration 10/29/19 Recreational Activities 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 LTG Duration 10/29/19 Perceived Disability Impairment Modified Oswestry Score 36% [facility] Goal (LTG) Pt will grade overall perceived disability on the Modified Oswestry Questionnaire to 20% or less. LTG Duration 10/29/19 knowledge deficit [employer] Goal (LTG) Pt will report good tolerance and compliance to [facility] aquatic exercise program 09/17/19: has not recently done , will restart today LTG Duration 10/29/19 Activity tolerance Impairment Oswestry disability index score 57% Short Term Goal (STG) Decrease Oswestry score to no greater than 45% STG Duration Goal MET [employer] Goal (LTG) Decrease Oswestry score to no greater than 30% 11/01/18: GOAL PROGRESS 07/30/19: GOAL PROGRESS 09/17/19: goal progress, no falls LTG Duration 10/29/19 weakness Impairment Core and LE weakness [facility] Goal (LTG) Pt will have MMT of LE strength graded 4+/5 or greater 09/13/19: some goal progress LTG Duration 10/29/19 pain Impairment 6/10 pain in low back, LLE, right LE Short Term Goal (STG) Pt will report pain 4/10 or less with daily functional activities. 09/17/19: recent worsening. STG Duration 09/13/19 [facility] Goal (LTG) Pt will report pain 2/10 or less with daily functional activities. LTG Duration 10/29/19 Assessment Summary Assessment Pt tolerated exercises well and has better form and coordination than previous pool sessions. Pt able to perform stretching longer for a more productive stretch. Jogging in deep water w/o belt for 6 continuous min at ~60% PRE. Physical Therapy Plan Frequency and Duration Frequency of Treatment 2x/Week Duration of Treatment 8 wks Plan of Care Start Date 07/30/19 Plan of Care End Date 10/29/19 Therapeutic Interventions Therapeutic Interventions Aquatic Therapy,Home Exercise Program,Manual Therapy, Neuromuscular Re-education, Patient/Caregiver Education, Self-Care/Home Management,Soft Tissue Mobilization,Taping, Therapeutic Activities, Therapeutic Exercises Modalities Cold Pack/Ice Massage,Electric Stimulation,Hot Packs, Ultrasound Next Visit Focus/Plan Next Note Type Treatment Note Next Visit Plan Assess patient response to returning to land stretching and core/LE strenthening last tx assess. compliance to HEP, modification of inversion table. Further body mechanics and posture training. Aquatic therapy-continue with resistive exercises and increase steady state deep water cardio.
--- NOTE | 2019-10-05 15:35 | PT.OTN ---
Current Diagnoses Low back pain (10/01/19) Pain in right leg (10/01/19) Pain in left leg (10/01/19) Difficulty in walking, not elsewhere classified (10/01/19) Weakness (10/01/19) Physical Therapy Treatment Note PT-OP-A Visit Information Start: 04/23/19 15:12 Freq: Status: Active Protocol: Document 10/05/19 10:15 LJ (Rec: 10/05/19 15:35 LJ [id number]) Out-Patient Physical Therapy Visit Information Visit Information Visit Type Aquatic Treatment Note Visit Start Time 10:15 Visit Stop Time 11:00 Total Visit Minutes 45 Visit Number 25 Number of MEDICAL RESEARCH TECH Visits 3 PT-OP-B Current Condition Start: 04/23/19 15:12 Freq: Status: Active Protocol: Document 04/23/19 15:13 SAK (Rec: 04/23/19 16:05 SAK [id number]) Current Condition History of Current Condition Onset Date 2 yrs Current Complaints LBP History of Current Condition Reports persistent, function- limiting LBP with residual weakness in LE's. Previously having PT with best benefit from aquatic PT but had to discontinue due to medical issues. Underwent spinal decompression 2 years ago with no relief of pain. Has now had second opinion appointment and will be consulting further. Cortisone injection 4 wks ago helpful, has been trying to gradually increase his activity level to not overdo it. Not doing any exercises at home; stating I never sit down at home so am doing a lot of exercises. Found aquatic therapy helpful. Has a tendency to overdo. States he was told this am he has a problem with his liver, has no idea about plan for treatment. Pain is in lumbar spine and into LE's in past. Tingling both feet, reports tests for circulation show no problem. Some numbness bilateral feet. States no reflexes in LE's. Pain anterior left hip since helping a friend clean jacuzzi tub yesterday. Also had increase in pain a couple weeks ago with a day of extensive walking. Prior Treatments and Tests Cortisone injection 4 wks ago, no pain since shot, pain medicaitons, aquatic PT. Future Testing and Treatments Planned Sees orthopedist at OR in 1 wk to discuss POC. Treatment Goals Patient/Caregiver Goals Strengthen his muscles and be able to resume prior functional level. Requests a couple more PT visits in the pool since he had to discontinue aquatic PT early. 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 He will see his primary doctor next week to set up the surgery. PT-OP-D Balance Start: 04/23/19 15:12 Freq: Status: Active Protocol: Document 07/30/19 14:26 SAK (Rec: 07/30/19 16:10 [facility] [id number]) Balance Tests Brown Balance Test Brown Balance Test Score 42 PT-OP-E Functional Tests Start: 04/23/19 15:12 Freq: Status: Active Protocol: Document 07/30/19 14:26 SAK (Rec: 07/30/19 16:10 SAK [id number]) Functional Tests Dynamic Gait Index (DGI) Score 16 PT-OP-J Posture/Palpation/Skin Start: 04/23/19 15:12 Freq: Status: Active Protocol: Document 04/23/19 15:13 SAK (Rec: 04/24/19 14:48 SAK [id number]) Posture Evaluation Position Standing Head/C-Spine Posture Forward Head T-Spine Posture Increased Kyphosis L-Spine Posture Increased Lordosis Shoulder Posture (L) Rounded,(R) Rounded,(L) Forward,(R) Forward Pelvis Posture Anteriorly Tilted Hip Posture (L) Externally Rotated,(R) Externally Rotated Palpation Assessment Location anterior left hip Palpation Findings Soft Tissue Tightness, Tenderness piriformis Palpation Findings Soft Tissue Tightness PT-OP-K Range of Motion Start: 04/23/19 15:12 Freq: Status: Active Protocol: Document 07/30/19 14:26 SAK (Rec: 07/30/19 16:10 [facility] [id number]) Lumbar Spine Range of Motion Lumbar Spine Active Flexion 40 Extension 15 Lateral Flexion Left 35 Lateral Flexion Right 35 ROM Limitations Soft Tissue Tightness Hip Goniometric Range of Motion Hip Left Straight Leg Raise 55 Right Straight Leg Raise 45 Hip ROM Limitations Hip ROM Limitations Soft Tissue Tightness,Pain Knee Goniometric Range of Motion Knee Left Knee ROM WFL Yes Right Knee ROM WFL Yes Ankle and Foot Goniometric Range of Motion Ankle and Foot renato Dorsiflexion with Knee Flexed 5 Dorsiflexion with Knee Extended 0 Plantarflexion 45 PT-OP-M Strength Start: 04/23/19 15:12 Freq: Status: Active Protocol: Document 07/30/19 14:26 SAK (Rec: 07/30/19 16:10 [facility] [id number]) Trunk Strength Trunk Manual Muscle Testing Flexion 4- Good- Extension 4- Good- Hip Strength Hip Manual Muscle Testing Left Flexion (L2) 4 Good Extension (S1) 3- Fair- Abduction 3+ Fair+ External Rotation 4- Good- Internal Rotation 4 Good Right Flexion (L2) 4 Good Extension (S1) 3- Fair- Abduction 4- Good- External Rotation 4- Good- Internal Rotation 4 Good Knee Strength Knee Manual Muscle Testing Left Flexion (S2) 4+ Good+ Extension (L3) 4+ Good+ Right Flexion (S2) 4+ Good+ Extension (L3) 4- Good- Ankle/Foot Strength Ankle and Foot Manual Muscle Testing Left Dorsiflexion (L4) 4- Good- Plantarflexion (S1) 4 Good Right Dorsiflexion (L4) 4+ Good+ Plantarflexion (S1) 4 Good Toe Strength Toe Manual Muscle Testing Left Great Toe Extension 4- Good- Right Great Toe Flexion 4 Good PT-OP-Q Treatments Start: 04/23/19 15:12 Freq: Status: Active Protocol: Document 09/28/19 07:33 SP (Rec: 09/28/19 08:18 SP [id number]) Cardio Equipment Recumbent Stepper (Sci-Fit) Duration (Minutes) 11 Resistance 7 Other 2.03 Therapeutic Exercises Supine Exercises Trunk rotation LS Side bilateral Reps/Minutes 30 x3 Comments stated popped in LB and pain went away ITB Side bilateral Reps/Minutes 2x Comments strap TrA with hip ab/ER Supine Exercise Name Trans Ab w/ SLR hip ER Resistance AROM Reps/Minutes x10 Comments cued PPT, slow muscular control and breath (count) hip flexor stretch Supine Exercise Name Simone Side bilateral Equipment Used strap Reps/Minutes 30x2 HS stretch Side bilateral Equipment Used strap and manual assist Reps/Minutes 30x2 Comments cued knee extension and slow elevate before knee bends hold 30! Standing Exercises 4 way hip Equipment Used L2 TB Reps/Minutes 10x Sit to stand Equipment Used Chair w/ foam pad Reps/Minutes 5x2 Comments cued for hip hinge and pressing through heels 1 Standing Exercise Name Calf Stretch Equipment Used JOHN Reps/Minutes 30 x 2 and rocking Comments pressure on pressure off, cued hold calf stretch 30!! shoulder extension Resistance L2 TB Reps/Minutes 10x5 PT-OP-R Modalities Start: 04/23/19 15:12 Freq: Status: Active Protocol: Document 09/25/19 13:45 SAK (Rec: 09/25/19 16:03 SAK [id number]) Hot Pack/Cold Pack Treatment L hip Location L Piriformis, ITB Patient Position Sidelying Treatment Duration (minutes) 15 Patient Tolerance Good Spinal Traction Traction Treatment Lumbar Traction Treatment Comment attempted but harness slides off due to patient body type, unable to use effectively. PT-OP-S Aquatic Treatment Start: 04/23/19 15:12 Freq: Status: Active Protocol: Document 10/05/19 10:15 LJ (Rec: 10/05/19 15:35 LJ [email or web address]) Aquatics Treatment Pool Entry/Exit Pool Entry/Exit Method Stairs Water Walking quick reverses fwd/bck Water Level Chest Level Walking Equipment Resistance Fins Level of Assistance Verbal Cues lunge walking Water Level Chest Level Walking Equipment Ankle Floats Comments 2 laps march, straight leg september Water Level Chest Level Walking Equipment Ankle Floats Comments 2 laps fwd,bck,side Water Level Chest Level Walking Equipment Ankle Floats Level of Assistance Verbal Cues Comments 2 laps Lower Extremity Exercises HS curls and kickbacks Details standing at wall w/min hand support Body Position Standing Water Level Chest Level Equipment Ankle Weight- 5.0# Reps/Duration 2x10 bilat Comments cues for no hip flexion and erect posture hip flex/ext, ab/ad Details standing at wall w/min hand support Body Position Standing Water Level Chest Level Equipment Ankle Floats Reps/Duration 2x15 bilat Comments controlled Lower Extremity Stretches quads Details and hip flex Equipment Large Noodle Reps/Duration 2x1:00 HC Details heel on second step Body Position Standing Water Level Chest Level Comments 2x 60sec bilat hamstring, ITB, add Details at wall Body Position Standing Water Level Chest Level Equipment hydrofit cuffs and 1 lg noodle Reps/Duration [id number] hold Upper Extremity Exercises bicep, tricep Body Position Standing Water Level Chest Level Equipment lg hydro bells Comments cues for core stab lat pull down, IR/ER Body Position Standing Water Level Chest Level Reps/Duration 12x bilat Comments cues for core stab hor ab/ad, flex/ext Body Position Standing Water Level Chest Level Equipment lg hand bells Reps/Duration 15 bilat x2 Spinal Exercises supine to stand Equipment Ankle Floats Reps/Duration 8 [place] Activities [place] Activities Bicycle,Cross Country,Running Duration 15 min PT-OP-T Assessment and Plan Start: 04/23/19 15:12 Freq: Status: Active Protocol: Document 10/05/19 10:15 JAMIN (Rec: 10/05/19 15:35 JAMIN [id number]) Physical Therapy Assessment Goals Gait and bal dysfunction Impairment Dynamic gait index (DGI) 16 Short Term Goal (STG) Decrease fall risk as evidenced by improvement in DGI to at least 20 09/17/19: goal progress STG Duration 09/13/19 Seam Closer Goal (LTG) No reported falls, DGI improved to 22/24 LTG Duration 10/29/19 Balance dysfunction Impairment Brown bal score 42/56 Short Term Goal (STG) Decrease fall risk as evidenced by improvement in Brown balance score to at least 48 09/17/19: goal progress STG Duration 09/13/19 Fpc Goal (LTG) No reported falls, Brown balance score greater than 50 LTG Duration 10/29/19 Recreational Activities 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 LTG Duration 10/29/19 Perceived Disability Impairment Modified Oswestry Score 36% Fpc Goal (LTG) Pt will grade overall perceived disability on the Modified Oswestry Questionnaire to 20% or less. LTG Duration 10/29/19 knowledge deficit Seam Closer Goal (LTG) Pt will report good tolerance and compliance to indep aquatic exercise program 09/17/19: has not recently done , will restart today LTG Duration 10/29/19 Activity tolerance Impairment Oswestry disability index score 57% Short Term Goal (STG) Decrease Oswestry score to no greater than 45% STG Duration Goal MET Fpc Goal (LTG) Decrease Oswestry score to no greater than 30% 11/01/18: GOAL PROGRESS 07/30/19: GOAL PROGRESS 09/17/19: goal progress, no falls LTG Duration 10/29/19 weakness Impairment Core and LE weakness Fpc Goal (LTG) Pt will have MMT of LE strength graded 4+/5 or greater 09/13/19: some goal progress LTG Duration 10/29/19 pain Impairment 6/10 pain in low back, LLE, right LE Short Term Goal (STG) Pt will report pain 4/10 or less with daily functional activities. 09/17/19: recent worsening. STG Duration 09/13/19 Fpc Goal (LTG) Pt will report pain 2/10 or less with daily functional activities. LTG Duration 10/29/19 Assessment Summary Assessment Pt continues to improve balance and coordination. Deep water session used for dynamic stretching and 5 minutes of sustained cardio. Pt complained of R knee pain during bicycling action but improved after stretching. Physical Therapy Plan Frequency and Duration Frequency of Treatment 2x/Week Duration of Treatment 8 wks Plan of Care Start Date 07/30/19 Plan of Care End Date 10/29/19 Therapeutic Interventions Therapeutic Interventions Aquatic Therapy,Home Exercise Program,Manual Therapy, Neuromuscular Re-education, Patient/Caregiver Education, Self-Care/Home Management,Soft Tissue Mobilization,Taping, Therapeutic Activities, Therapeutic Exercises Modalities Cold Pack/Ice Massage,Electric Stimulation,Hot Packs, Ultrasound Next Visit Focus/Plan Next Note Type Treatment Note Next Visit Plan Continue with resistive exercises and increase steady state deep water cardio for improved strength, functional mobility, activity tolerance and balance
--- NOTE | 2020-02-05 11:33 | PT-OP ANOTE ---
DNS for PT appointment
--- NOTE | 2020-02-25 16:45 | PT.OPPOC ---
Physical, Occupational & Speech Therapy At [facility] Current Diagnoses Low back pain (02/25/20) Pain in right leg (02/25/20) Pain in left leg (02/25/20) Difficulty in walking, not elsewhere classified (02/25/20) Weakness (02/25/20) Visit Care Team Role Provider Type Julieth Frias Attending Provider Non-Staff Primary Care Provider Specialty: Medical Address: [address] [place] [address], [id number] Email: Plan Of Care PT-OP-T Assessment and Plan Start: 04/23/19 15:12 Freq: Status: Active Protocol: Document 02/25/20 10:36 SAK (Rec: 02/25/20 11:23 SAK [id number]) Physical Therapy Assessment Goals Gait and bal dysfunction Impairment Dynamic gait index (DGI) 16 Short Term Goal (STG) Decrease fall risk as evidenced by improvement in DGI to at least 20 09/17/19: goal progress 02/25/20: DGI 18 Mcfp Goal (LTG) No reported falls, DGI improved to 22/24 02/25/20: DGI 18/24 LTG Duration 04/03/20 Balance dysfunction Impairment Brown bal score 42/56 Short Term Goal (STG) Decrease fall risk as evidenced by improvement in Brown balance score to at least 48 09/17/19: goal progress 03/03/20: Brown Balance score 45 /56 STG Duration 09/13/19 Audio/Video Engineer Goal (LTG) No reported falls, Brown balance score greater than 50 02/25/20: Brown balance score 45/ 56 LTG Duration 04/03/20 Recreational Activities 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 03/03/20: not currently doing bee-keeping due to difficulty, needs further work on body mechanics and balance LTG Duration 04/03/20 Perceived Disability Impairment Modified Oswestry Score 36% Audio/Video Engineer Goal (LTG) Pt will grade overall perceived disability on the Modified Oswestry Questionnaire to 20% or less. 02/25/20: Oswestry scoere 45% during Covid, no PT, unable to do aquatic exercise LTG Duration 04/03/20 knowledge deficit Mcfp Goal (LTG) Pt will report good tolerance and compliance to indep aquatic exercise program 09/17/19: has not recently done , will restart today 02/25/20: unable to do during Covid19 shut down; patient was instructed to call to reserve time to go to the pool for aquatic exercise per new protocol LTG Duration 04/03/20 Activity tolerance Impairment Oswestry disability index score 57% Short Term Goal (STG) Decrease Oswestry score to no greater than 45% STG Duration Goal MET Mcfp Goal (LTG) Decrease Oswestry score to no greater than 30% 11/01/18: GOAL PROGRESS 07/30/19: GOAL PROGRESS 09/17/19: goal progress, no falls LTG Duration 10/29/19 weakness Impairment Core and LE weakness Mcfp Goal (LTG) Pt will have MMT of LE strength graded 4+/5 or greater 09/13/19: some goal progress 02/25/20: most significant deficits in hip abduction 4-/5 renato and hip ext 3-/5 renato LTG Duration 04/03/20 pain Impairment 6/10 pain in low back, LLE, right LE Short Term Goal (STG) Pt will report pain 4/10 or less with daily functional activities. 09/17/19: recent worsening. STG Duration 03/17/20 Mcfp Goal (LTG) Pt will report pain 2/10 or less with daily functional activities. 03/03/20: currently reporting pain level of 5/10 LTG Duration 04/03/20 Assessment Summary Assessment Due to PT and pool shut down during Covid19 patient reporting increase in pain low back and especially left LE. Would benefit from further skilled PT to address all above goals to improve patient 's safety, decrease his pain, improve his strength, body mechanics, and overall function. Physical Therapy Plan Frequency and Duration Frequency of Treatment 2x/Week Duration of Treatment 5 weeks Plan of Care Start Date 02/25/20 Plan of Care End Date 04/03/20 Therapeutic Interventions Therapeutic Interventions Aquatic Therapy,Balance Training,Home Exercise Program ,Manual Therapy,Neuromuscular Re-education,Patient/Caregiver Education,Self-Care/Home Management,Therapeutic Activities,Therapeutic Exercises Modalities Cold Pack/Ice Massage,Electric Stimulation,Hot Packs Next Visit Focus/Plan Next Note Type Treatment Note Next Visit Plan Therapeutic exercise with emphasis on posture, body mechanics, core stab, flexibility. Manual therapy to IT band, lumbar spine as indicated. End with moist heat to lumbar spine and ITband. Plan of Care Dates Plan of Care Start Date 02/25/20 Plan of Care End Date 04/03/20 Electronically Signed by: Leora Palacio, PT 03/03/20 [id number] Please Sign and Return: I have reviewed this Plan of Care and certify that the skilled therapy services above are required to meet the patient?s needs. Physician Signature Date Printed Name and Credentials Clinical Instructor Signature Printed Name and Credentials
--- NOTE | 2020-02-25 16:45 | PT.OTN ---
Current Diagnoses Low back pain (02/25/20) Pain in right leg (02/25/20) Pain in left leg (02/25/20) Difficulty in walking, not elsewhere classified (02/25/20) Weakness (02/25/20) Physical Therapy Treatment Note PT-OP-A Visit Information Start: 04/23/19 15:12 Freq: Status: Active Protocol: Document 02/05/20 11:32 [facility]AK (Rec: 02/05/20 11:33 [facility] [id number]) Out-Patient Physical Therapy Visit Information Visit Information Visit Type Other Visit Note DNS for PT appointment PT-OP-B Current Condition Start: 04/23/19 15:12 Freq: Status: Active Protocol: Document 04/23/19 15:13 SAK (Rec: 04/23/19 16:05 [facility] [id number]) Current Condition History of Current Condition Onset Date 2 yrs Current Complaints LBP History of Current Condition Reports persistent, function- limiting LBP with residual weakness in LE's. Previously having PT with best benefit from aquatic PT but had to discontinue due to medical issues. Underwent spinal decompression 2 years ago with no relief of pain. Has now had second opinion appointment and will be consulting further. Cortisone injection 4 wks ago helpful, has been trying to gradually increase his activity level to not overdo it. Not doing any exercises at home; stating I never sit down at home so am doing a lot of exercises. Found aquatic therapy helpful. Has a tendency to overdo. States he was told this am he has a problem with his liver, has no idea about plan for treatment. Pain is in lumbar spine and into LE's in past. Tingling both feet, reports tests for circulation show no problem. Some numbness bilateral feet. States no reflexes in LE's. Pain anterior left hip since helping a friend clean jacuzzi tub yesterday. Also had increase in pain a couple weeks ago with a day of extensive walking. Prior Treatments and Tests Cortisone injection 4 wks ago, no pain since shot, pain medicaitons, aquatic PT. Future Testing and Treatments Planned Sees orthopedist [place] 1 wk to discuss POC. Treatment Goals Patient/Caregiver Goals Strengthen his muscles and be able to resume prior functional level. Requests a couple more PT visits in the pool since he had to discontinue aquatic PT early. 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 Diagnosed with chronic arthritis. Injection left thumb 2 wks ago , wearing splint left hand, discussing surgery. Going in for injection in low back . Main problem is burning lateral left LE, low back painreports poor compliance to HEP. Patient reports when he loses weight down to 300 ( currently 311) he will have right TKA. PT-OP-D Balance Start: 04/23/19 15:12 Freq: Status: Active Protocol: Document 07/30/19 14:26 [facility] (Rec: 07/30/19 16:10 [facility] [id number]) Balance Tests Brown Balance Test Brown Balance Test Score 42 PT-OP-E Functional Tests Start: 04/23/19 15:12 Freq: Status: Active Protocol: Document 07/30/19 14:26 [facility] (Rec: 07/30/19 16:10 [facility] [id number]) Functional Tests Dynamic Gait Index (DGI) Score 16 PT-OP-J Posture/Palpation/Skin Start: 04/23/19 15:12 Freq: Status: Active Protocol: Document 04/23/19 15:13 [facility] (Rec: 04/24/19 14:48 [facility] [id number]) Posture Evaluation Position Standing Head/C-Spine Posture Forward Head T-Spine Posture Increased Kyphosis L-Spine Posture Increased Lordosis Shoulder Posture (L) Rounded,(R) Rounded,(L) Forward,(R) Forward Pelvis Posture Anteriorly Tilted Hip Posture (L) Externally Rotated,(R) Externally Rotated Palpation Assessment Location anterior left hip Palpation Findings Soft Tissue Tightness, Tenderness piriformis Palpation Findings Soft Tissue Tightness PT-OP-K Range of Motion Start: 04/23/19 15:12 Freq: Status: Active Protocol: Document 07/30/19 14:26 [facility] (Rec: 07/30/19 16:10 [facility] [id number]) Lumbar Spine Range of Motion Lumbar Spine Active Flexion 40 Extension 15 Lateral Flexion Left 35 Lateral Flexion Right 35 ROM Limitations Soft Tissue Tightness Hip Goniometric Range of Motion Hip Left Straight Leg Raise 55 Right Straight Leg Raise 45 Hip ROM Limitations Hip ROM Limitations Soft Tissue Tightness,Pain Knee Goniometric Range of Motion Knee Left Knee ROM WFL Yes Right Knee ROM WFL Yes Ankle and Foot Goniometric Range of Motion Ankle and Foot renato Dorsiflexion with Knee Flexed 5 Dorsiflexion with Knee Extended 0 Plantarflexion 45 PT-OP-M Strength Start: 04/23/19 15:12 Freq: Status: Active Protocol: Document 07/30/19 14:26 [facility] (Rec: 07/30/19 16:10 [facility] [id number]) Trunk Strength Trunk Manual Muscle Testing Flexion 4- Good- Extension 4- Good- Hip Strength Hip Manual Muscle Testing Left Flexion (L2) 4 Good Extension (S1) 3- Fair- Abduction 3+ Fair+ External Rotation 4- Good- Internal Rotation 4 Good Right Flexion (L2) 4 Good Extension (S1) 3- Fair- Abduction 4- Good- External Rotation 4- Good- Internal Rotation 4 Good Knee Strength Knee Manual Muscle Testing Left Flexion (S2) 4+ Good+ Extension (L3) 4+ Good+ Right Flexion (S2) 4+ Good+ Extension (L3) 4- Good- Ankle/Foot Strength Ankle and Foot Manual Muscle Testing Left Dorsiflexion (L4) 4- Good- Plantarflexion (S1) 4 Good Right Dorsiflexion (L4) 4+ Good+ Plantarflexion (S1) 4 Good Toe Strength Toe Manual Muscle Testing Left Great Toe Extension 4- Good- Right Great Toe Flexion 4 Good PT-OP-Q Treatments Start: 04/23/19 15:12 Freq: Status: Active Protocol: Document 02/25/20 10:36 [facility] (Rec: 03/03/20 16:32 [facility] [id number]) Cardio Equipment Recumbent Stepper (Sci-Fit) Duration (Minutes) 11 Resistance 7 Seat Position 15 Other 1.87 miles Therapeutic Exercises Standing Exercises sidestepping core engagement Resistance L2 TB Reps/Minutes 10x each direction postural isometric Reps/Minutes 5x Comments wall Therapeutic Activity Therapeutic Activity balance testing Reps/Minutes 11 Manual Therapy Treatment Other Other Manual Treatments MMT LE's Neuro Re-Education Treatment Balance Activities SLS Reps/Duration 3x ea Comments mirror for visual feedback, one-hand support 3x tandem stand and tandem gait Reps/Duration 4 min Comments CG to min assist Self-Care/Home Management Treatment Education Patient Education Body Mechanics,Home Exercise Program,Posture PT-OP-R Modalities Start: 04/23/19 15:12 Freq: Status: Active Protocol: Document 02/25/20 10:36 [facility] (Rec: 02/25/20 11:23 [facility] [id number]) Hot Pack/Cold Pack Treatment L hip Location L Piriformis, ITB Patient Position Sidelying Treatment Duration (minutes) 15 Patient Tolerance Good PT-OP-S Aquatic Treatment Start: 04/23/19 15:12 Freq: Status: Active Protocol: Document 10/05/19 10:15 [facility] (Rec: 10/05/19 15:35 [facility] [id number]) Aquatics Treatment Pool Entry/Exit Pool Entry/Exit Method Stairs Water Walking quick reverses fwd/bck Water Level Chest Level Walking Equipment Resistance Fins Level of Assistance Verbal Cues lunge walking Water Level Chest Level Walking Equipment Ankle Floats Comments 2 laps march, straight leg march Water Level Chest Level Walking Equipment Ankle Floats Comments 2 laps fwd,bck,side Water Level Chest Level Walking Equipment Ankle Floats Level of Assistance Verbal Cues Comments 2 laps Lower Extremity Exercises HS curls and kickbacks Details standing at wall w/min hand support Body Position Standing Water Level Chest Level Equipment Ankle Weight- 5.0# Reps/Duration 2x10 bilat Comments cues for no hip flexion and erect posture hip flex/ext, ab/ad Details standing at wall w/min hand support Body Position Standing Water Level Chest Level Equipment Ankle Floats Reps/Duration 2x15 bilat Comments controlled Lower Extremity Stretches quads Details and hip flex Equipment Large Noodle Reps/Duration 2x1:00 HC Details heel on second step Body Position Standing Water Level Chest Level Comments 2x 60sec bilat hamstring, ITB, add Details at wall Body Position Standing Water Level Chest Level Equipment hydrofit cuffs and 1 lg noodle Reps/Duration [id number] hold Upper Extremity Exercises bicep, tricep Body Position Standing Water Level Chest Level Equipment lg hydro bells Comments cues for core stab lat pull down, IR/ER Body Position Standing Water Level Chest Level Reps/Duration 12x bilat Comments cues for core stab hor ab/ad, flex/ext Body Position Standing Water Level Chest Level Equipment lg hand bells Reps/Duration 15 bilat x2 Spinal Exercises supine to stand Equipment Ankle Floats Reps/Duration 8 [place] Activities [place] Activities Bicycle,Cross Country,Running Duration 15 min PT-OP-T Assessment and Plan Start: 04/23/19 15:12 Freq: Status: Active Protocol: Document 02/25/20 10:36 [facility] (Rec: 02/25/20 11:23 [facility] [id number]) Physical Therapy Assessment Goals Gait and bal dysfunction Impairment Dynamic gait index (DGI) Short Term Goal (STG) Decrease fall risk as evidenced by improvement in DGI to at least 20 09/17/19: goal progress 02/25/20: DGI Half-Way Goal (LTG) No reported falls, DGI improved to 02/25/20: DGI LTG Duration 04/03/20 Balance dysfunction Impairment Brown bal score 42/56 Short Term Goal (STG) Decrease fall risk as evidenced by improvement in Brown balance score to at least 48 09/17/19: goal progress 03/03/20: Brown Balance score 45 /56 STG Duration 09/13/19 Asparagus Cutter Goal (LTG) No reported falls, Brown balance score greater than 50 02/25/20: Brown balance score 45/ 56 LTG Duration 04/03/20 Recreational Activities 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 03/03/20: not currently doing bee-keeping due to difficulty, needs further work on body mechanics and balance LTG Duration 04/03/20 Perceived Disability Impairment Modified Oswestry Score 36% Asparagus Cutter Goal (LTG) Pt will grade overall perceived disability on the Modified Oswestry Questionnaire to 20% or less. 02/25/20: Oswestry scoere 45% during Covid, no PT, unable to do aquatic exercise LTG Duration 04/03/20 knowledge deficit Half-Way Goal (LTG) Pt will report good tolerance and compliance to indep aquatic exercise program 09/17/19: has not recently done , will restart today 02/25/20: unable to do during Covid19 shut down; patient was instructed to call to reserve time to go to the pool for aquatic exercise per new protocol LTG Duration 04/03/20 Activity tolerance Impairment Oswestry disability index score 57% Short Term Goal (STG) Decrease Oswestry score to no greater than 45% STG Duration Goal MET Half-Way Goal (LTG) Decrease Oswestry score to no greater than 30% 11/01/18: GOAL PROGRESS 07/30/19: GOAL PROGRESS 09/17/19: goal progress, no falls LTG Duration 10/29/19 weakness Impairment Core and LE weakness Asparagus Cutter Goal (LTG) Pt will have MMT of LE strength graded 4+/5 or greater 09/13/19: some goal progress 02/25/20: most significant deficits in hip abduction 4-/5 renato and hip ext 3-/5 renato LTG Duration 04/03/20 pain Impairment 6/10 pain in low back, LLE, right LE Short Term Goal (STG) Pt will report pain 4/10 or less with daily functional activities. 09/17/19: recent worsening. STG Duration 03/17/20 Asparagus Cutter Goal (LTG) Pt will report pain 2/10 or less with daily functional activities. 03/03/20: currently reporting pain level of 5/10 LTG Duration 04/03/20 Assessment Summary Assessment Due to PT and pool shut down during Cov patient reporting increase in pain low back and especially left LE. Would benefit from further skilled PT to address all above goals to improve patient 's safety, decrease his pain, improve his strength, body mechanics, and overall function. Physical Therapy Plan Frequency and Duration Frequency of Treatment 2x/Week Duration of Treatment 5 weeks Plan of Care Start Date 02/25/20 Plan of Care End Date 04/03/20 Therapeutic Interventions Therapeutic Interventions Aquatic Therapy,Balance Training,Home Exercise Program ,Manual Therapy,Neuromuscular Re-education,Patient/Caregiver Education,Self-Care/Home Management,Therapeutic Activities,Therapeutic Exercises Modalities Cold Pack/Ice Massage,Electric Stimulation,Hot Packs Next Visit Focus/Plan Next Note Type Treatment Note Next Visit Plan Therapeutic exercise with emphasis on posture, body mechanics, core stab, flexibility. Manual therapy to IT band, lumbar spine as indicated. End with moist heat to lumbar spine and ITband.
--- NOTE | 2020-03-04 09:03 | PT.OTN ---
Current Diagnoses Low back pain (03/04/20) Pain in right leg (03/04/20) Pain in left leg (03/04/20) Difficulty in walking, not elsewhere classified (03/04/20) Weakness (03/04/20) Physical Therapy Treatment Note PT-OP-A Visit Information Start: 04/23/19 15:12 Freq: Status: Active Protocol: Document 03/04/20 08:17 SP (Rec: 03/04/20 09:04 SP [id number]) Out-Patient Physical Therapy Visit Information Visit Information Visit Type Treatment Note Visit Start Time 08:17 Visit Stop Time 09:03 Total Visit Minutes 46 Visit Number 27 Number of [employer]ES[employer] Visits 1 PT-OP-B Current Condition Start: 04/23/19 15:12 Freq: Status: Active Protocol: Document 04/23/19 15:13 SAK (Rec: 04/23/19 16:05 SAK [id number]) Current Condition History of Current Condition Onset Date 2 yrs Current Complaints LBP History of Current Condition Reports persistent, function- limiting LBP with residual weakness in LE's. Previously having PT with best benefit from aquatic PT but had to discontinue due to medical issues. Underwent spinal decompression 2 years ago with no relief of pain. Has now had second opinion appointment and will be consulting further. Cortisone injection 4 wks ago helpful, has been trying to gradually increase his activity level to not overdo it. Not doing any exercises at home; stating I never sit down at home so am doing a lot of exercises. Found aquatic therapy helpful. Has a tendency to overdo. States he was told this am he has a problem with his liver, has no idea about plan for treatment. Pain is in lumbar spine and into LE's in past. Tingling both feet, reports tests for circulation show no problem. Some numbness bilateral feet. States no reflexes in LE's. Pain anterior left hip since helping a friend clean jacuzzi tub yesterday. Also had increase in pain a couple weeks ago with a day of extensive walking. Prior Treatments and Tests Cortisone injection 4 wks ago, no pain since shot, pain medicaitons, aquatic PT. Future Testing and Treatments Planned Sees orthopedist at [facility] in 1 wk to discuss POC. Treatment Goals Patient/Caregiver Goals Strengthen his muscles and be able to resume prior functional level. Requests a couple more PT visits in the pool since he had to discontinue aquatic PT early. 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 Has called the pool x3 to set up appt and no answer with no answering machine to leave a message so has given up. Pt has an appt to have an injection for pain relief. PT-OP-D Balance Start: 04/23/19 15:12 Freq: Status: Active Protocol: Document 07/30/19 14:26 [facility] (Rec: 07/30/19 16:10 [facility] [id number]) Balance Tests Brown Balance Test Brown Balance Test Score 42 PT-OP-E Functional Tests Start: 04/23/19 15:12 Freq: Status: Active Protocol: Document 07/30/19 14:26 [facility] (Rec: 07/30/19 16:10 [facility] [id number]) Functional Tests Dynamic Gait Index (DGI) Score 16 PT-OP-J Posture/Palpation/Skin Start: 04/23/19 15:12 Freq: Status: Active Protocol: Document 04/23/19 15:13 [facility] (Rec: 04/24/19 14:48 [facility] [id number]) Posture Evaluation Position Standing Head/C-Spine Posture Forward Head T-Spine Posture Increased Kyphosis L-Spine Posture Increased Lordosis Shoulder Posture (L) Rounded,(R) Rounded,(L) Forward,(R) Forward Pelvis Posture Anteriorly Tilted Hip Posture (L) Externally Rotated,(R) Externally Rotated Palpation Assessment Location anterior left hip Palpation Findings Soft Tissue Tightness, Tenderness piriformis Palpation Findings Soft Tissue Tightness PT-OP-K Range of Motion Start: 04/23/19 15:12 Freq: Status: Active Protocol: Document 07/30/19 14:26 SAK (Rec: 07/30/19 16:10 SAK [id number]) Lumbar Spine Range of Motion Lumbar Spine Active Flexion 40 Extension 15 Lateral Flexion Left 35 Lateral Flexion Right 35 ROM Limitations Soft Tissue Tightness Hip Goniometric Range of Motion Hip Left Straight Leg Raise 55 Right Straight Leg Raise 45 Hip ROM Limitations Hip ROM Limitations Soft Tissue Tightness,Pain Knee Goniometric Range of Motion Knee Left Knee ROM WFL Yes Right Knee ROM WFL Yes Ankle and Foot Goniometric Range of Motion Ankle and Foot renato Dorsiflexion with Knee Flexed 5 Dorsiflexion with Knee Extended 0 Plantarflexion 45 PT-OP-M Strength Start: 04/23/19 15:12 Freq: Status: Active Protocol: Document 07/30/19 14:26 [facility] (Rec: 07/30/19 16:10 [facility] [id number]) Trunk Strength Trunk Manual Muscle Testing Flexion 4- Good- Extension 4- Good- Hip Strength Hip Manual Muscle Testing Left Flexion (L2) 4 Good Extension (S1) 3- Fair- Abduction 3+ Fair+ External Rotation 4- Good- Internal Rotation 4 Good Right Flexion (L2) 4 Good Extension (S1) 3- Fair- Abduction 4- Good- External Rotation 4- Good- Internal Rotation 4 Good Knee Strength Knee Manual Muscle Testing Left Flexion (S2) 4+ Good+ Extension (L3) 4+ Good+ Right Flexion (S2) 4+ Good+ Extension (L3) 4- Good- Ankle/Foot Strength Ankle and Foot Manual Muscle Testing Left Dorsiflexion (L4) 4- Good- Plantarflexion (S1) 4 Good Right Dorsiflexion (L4) 4+ Good+ Plantarflexion (S1) 4 Good Toe Strength Toe Manual Muscle Testing Left Great Toe Extension 4- Good- Right Great Toe Flexion 4 Good PT-OP-Q Treatments Start: 04/23/19 15:12 Freq: Status: Active Protocol: Document 03/04/20 08:17 SP (Rec: 03/04/20 09:04 SP [id number]) Cardio Equipment Recumbent Stepper (Sci-Fit) Duration (Minutes) 11 Resistance 7.5 Seat Position 17 Other 2.01 miles Therapeutic Exercises Supine Exercises lateral trunk stretch Supine Exercise Name review HEP Side bilateral Reps/Minutes 2x 30 HS stretch Supine Exercise Name review HEP- no jerking movements Side bilateral Equipment Used strap and manual assist Reps/Minutes 30x2 Comments cued knee extension and slow elevate before knee bends hold 30-60! piriformis Supine Exercise Name review HEP Side bilateral Reps/Minutes 30x2 Comments manual assist SKTC Supine Exercise Name review HEP Side bilateral Reps/Minutes 30x2 Comments manual assist Sitting Exercises self stick rolling ITB/quad/HS Reps/Minutes 1 min each position Comments cued slow within tolerance Standing Exercises Self STMs ball roll at wall Standing Exercise Name ES, glut med, ITB Reps/Minutes 4 Comments cued sustained pressure then roll to tolerance PT-OP-R Modalities Start: 04/23/19 15:12 Freq: Status: Active Protocol: Document 02/25/20 10:36 SAK (Rec: 02/25/20 11:23 SAK [id number]) Hot Pack/Cold Pack Treatment L hip Location L Piriformis, ITB Patient Position Sidelying Treatment Duration (minutes) 15 Patient Tolerance Good PT-OP-S Aquatic Treatment Start: 04/23/19 15:12 Freq: Status: Active Protocol: Document 10/05/19 10:15 LJ (Rec: 10/05/19 15:35 LJ [id number]) Aquatics Treatment Pool Entry/Exit Pool Entry/Exit Method Stairs Water Walking quick reverses fwd/bck Water Level Chest Level Walking Equipment Resistance Fins Level of Assistance Verbal Cues lunge walking Water Level Chest Level Walking Equipment Ankle Floats Comments 2 laps march, straight leg march Water Level Chest Level Walking Equipment Ankle Floats Comments 2 laps fwd,bck,side Water Level Chest Level Walking Equipment Ankle Floats Level of Assistance Verbal Cues Comments 2 laps Lower Extremity Exercises HS curls and kickbacks Details standing at wall w/min hand support Body Position Standing Water Level Chest Level Equipment Ankle Weight- 5.0# Reps/Duration 2x10 bilat Comments cues for no hip flexion and erect posture hip flex/ext, ab/ad Details standing at wall w/min hand support Body Position Standing Water Level Chest Level Equipment Ankle Floats Reps/Duration 2x15 bilat Comments controlled Lower Extremity Stretches quads Details and hip flex Equipment Large Noodle Reps/Duration 2x1:00 HC Details heel on second step Body Position Standing Water Level Chest Level Comments 2x 60sec bilat hamstring, ITB, add Details at wall Body Position Standing Water Level Chest Level Equipment hydrofit cuffs and 1 lg noodle Reps/Duration [id number] hold Upper Extremity Exercises bicep, tricep Body Position Standing Water Level Chest Level Equipment lg hydro bells Comments cues for core stab lat pull down, IR/ER Body Position Standing Water Level Chest Level Reps/Duration 12x bilat Comments cues for core stab hor ab/ad, flex/ext Body Position Standing Water Level Chest Level Equipment lg hand bells Reps/Duration 15 bilat x2 Spinal Exercises supine to stand Equipment Ankle Floats Reps/Duration 8 Clairfield Activities Clairfield Activities Bicycle,Cross Country,Running Duration 15 min PT-OP-T Assessment and Plan Start: 04/23/19 15:12 Freq: Status: Active Protocol: Document 03/04/20 08:17 SP (Rec: 03/04/20 09:04 SP [id number]) Physical Therapy Assessment Goals Gait and bal dysfunction Impairment Dynamic gait index (DGI) 16 Short Term Goal (STG) Decrease fall risk as evidenced by improvement in DGI to at least 20 09/17/19: goal progress 02/25/20: DGI 18 Kier Pleater Goal (LTG) No reported falls, DGI improved to 22/24 02/25/20: DGI 1824 LTG Duration 04/03/20 Balance dysfunction Impairment Brown bal score 42/56 Short Term Goal (STG) Decrease fall risk as evidenced by improvement in Brown balance score to at least 48 09/17/19: goal progress 03/03/20: Brown Balance score 45 /56 STG Duration 09/13/19 Kier Pleater Goal (LTG) No reported falls, Brown balance score greater than 50 02/25/20: Brown balance score 45/ 56 LTG Duration 04/03/20 Recreational Activities 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 03/03/20: not currently doing bee-keeping due to difficulty, needs further work on body mechanics and balance LTG Duration 04/03/20 Perceived Disability Impairment Modified Oswestry Score 36% Kier Pleater Goal (LTG) Pt will grade overall perceived disability on the Modified Oswestry Questionnaire to 20% or less. 02/25/20: Oswestry scoere 45% during Covid, no PT, unable to do aquatic exercise LTG Duration 04/03/20 knowledge deficit Group Home Goal (LTG) Pt will report good tolerance and compliance to indep aquatic exercise program 09/17/19: has not recently done , will restart today 02/25/20: unable to do during Covid19 shut down; patient was instructed to call to reserve time to go to the pool for aquatic exercise per new protocol LTG Duration 04/03/20 weakness Impairment Core and LE weakness Group Home Goal (LTG) Pt will have MMT of LE strength graded 4+/5 or greater 09/13/19: some goal progress 02/25/20: most significant deficits in hip abduction 4-/5 renato and hip ext 3-/5 renato LTG Duration 04/03/20 pain Impairment 6/10 pain in low back, LLE, right LE Short Term Goal (STG) Pt will report pain 4/10 or less with daily functional activities. 09/17/19: recent worsening. STG Duration 03/17/20 Group Home Goal (LTG) Pt will report pain 2/10 or less with daily functional activities. 03/03/20: currently reporting pain level of 5/10 LTG Duration 04/03/20 Assessment Summary Assessment Tx focused on cardio warm up and flexibility, continuous cuing for slow movement into stretch for each. Added racquetball roll to ES, glut, ITB at wall and rolling stick to L ITB, quad sitting with good response is helpful, need to do this more at home. Physical Therapy Plan Frequency and Duration Frequency of Treatment 2x/Week Duration of Treatment 5 weeks Plan of Care Start Date 02/25/20 Plan of Care End Date 04/03/20 Therapeutic Interventions Therapeutic Interventions Aquatic Therapy,Balance Training,Home Exercise Program ,Manual Therapy,Neuromuscular Re-education,Patient/Caregiver Education,Self-Care/Home Management,Therapeutic Activities,Therapeutic Exercises Modalities Cold Pack/Ice Massage,Electric Stimulation,Hot Packs Next Visit Focus/Plan Next Note Type Treatment Note Next Visit Plan Assess response to last tx: scifit and flexibilty. Continue per PT POC: Therapeutic exercise with emphasis on posture, body mechanics, core stab, flexibility. Manual therapy to IT band, lumbar spine as indicated. End with moist heat to lumbar spine and ITband.
--- NOTE | 2020-03-11 13:00 | PT.OTN ---
Current Diagnoses Low back pain (03/11/20) Pain in right leg (03/11/20) Pain in left leg (03/11/20) Difficulty in walking, not elsewhere classified (03/11/20) Weakness (03/11/20) Physical Therapy Treatment Note PT-OP-A Visit Information Start: 04/23/19 15:12 Freq: Status: Active Protocol: Document 03/11/20 12:18 SP (Rec: 03/11/20 13:11 SP [id number]) Out-Patient Physical Therapy Visit Information Visit Information Visit Type Treatment Note Visit Note Educated to wait for therapist before coming into gym for safety. Visit Start Time 12:18 Visit Stop Time 13:00 Total Visit Minutes 42 Visit Number 28 Number of CANE FLUME CHUTE OPERATOR Visits 2 PT-OP-B Current Condition Start: 04/23/19 15:12 Freq: Status: Active Protocol: Document 04/23/19 15:13 SAK (Rec: 04/23/19 16:05 SAK [id number]) Current Condition History of Current Condition Onset Date 2 yrs Current Complaints LBP History of Current Condition Reports persistent, function- limiting LBP with residual weakness in LE's. Previously having PT with best benefit from aquatic PT but had to discontinue due to medical issues. Underwent spinal decompression 2 years ago with no relief of pain. Has now had second opinion appointment and will be consulting further. Cortisone injection 4 wks ago helpful, has been trying to gradually increase his activity level to not overdo it. Not doing any exercises at home; stating I never sit down at home so am doing a lot of exercises. Found aquatic therapy helpful. Has a tendency to overdo. States he was told this am he has a problem with his liver, has no idea about plan for treatment. Pain is in lumbar spine and into LE's in past. Tingling both feet, reports tests for circulation show no problem. Some numbness bilateral feet. States no reflexes in LE's. Pain anterior left hip since helping a friend clean [employer] [facility] yesterday. Also had increase in pain a couple weeks ago with a day of extensive walking. Prior Treatments and Tests Cortisone injection 4 wks ago, no pain since shot, pain medicaitons, aquatic PT. Future Testing and Treatments Planned Sees orthopedist [place] in 1 wk to discuss POC. Treatment Goals Patient/Caregiver Goals Strengthen his muscles and be able to resume prior functional level. Requests a couple more PT visits in the pool since he had to discontinue aquatic PT early. 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 PT-OP-D Balance Start: 04/23/19 15:12 Freq: Status: Active Protocol: Document 07/30/19 14:26 SAK (Rec: 07/30/19 16:10 SAK [id number]) Balance Tests Brown Balance Test Brown Balance Test Score 42 PT-OP-E Functional Tests Start: 04/23/19 15:12 Freq: Status: Active Protocol: Document 07/30/19 14:26 SAK (Rec: 07/30/19 16:10 [facility] [id number]) Functional Tests Dynamic Gait Index (DGI) Score 16 PT-OP-J Posture/Palpation/Skin Start: 04/23/19 15:12 Freq: Status: Active Protocol: Document 04/23/19 15:13 SAK (Rec: 04/24/19 14:48 [facility] [id number]) Posture Evaluation Position Standing Head/C-Spine Posture Forward Head T-Spine Posture Increased Kyphosis L-Spine Posture Increased Lordosis Shoulder Posture (L) Rounded,(R) Rounded,(L) Forward,(R) Forward Pelvis Posture Anteriorly Tilted Hip Posture (L) Externally Rotated,(R) Externally Rotated Palpation Assessment Location anterior left hip Palpation Findings Soft Tissue Tightness, Tenderness piriformis Palpation Findings Soft Tissue Tightness PT-OP-K Range of Motion Start: 04/23/19 15:12 Freq: Status: Active Protocol: Document 07/30/19 14:26 SAK (Rec: 07/30/19 16:10 [facility] [id number]) Lumbar Spine Range of Motion Lumbar Spine Active Flexion 40 Extension 15 Lateral Flexion Left 35 Lateral Flexion Right 35 ROM Limitations Soft Tissue Tightness Hip Goniometric Range of Motion Hip Left Straight Leg Raise 55 Right Straight Leg Raise 45 Hip ROM Limitations Hip ROM Limitations Soft Tissue Tightness,Pain Knee Goniometric Range of Motion Knee Left Knee ROM WFL Yes Right Knee ROM WFL Yes Ankle and Foot Goniometric Range of Motion Ankle and Foot renato Dorsiflexion with Knee Flexed 5 Dorsiflexion with Knee Extended 0 Plantarflexion 45 PT-OP-M Strength Start: 04/23/19 15:12 Freq: Status: Active Protocol: Document 07/30/19 14:26 [facility] (Rec: 07/30/19 16:10 [facility] [id number]) Trunk Strength Trunk Manual Muscle Testing Flexion 4- Good- Extension 4- Good- Hip Strength Hip Manual Muscle Testing Left Flexion (L2) 4 Good Extension (S1) 3- Fair- Abduction 3+ Fair+ External Rotation 4- Good- Internal Rotation 4 Good Right Flexion (L2) 4 Good Extension (S1) 3- Fair- Abduction 4- Good- External Rotation 4- Good- Internal Rotation 4 Good Knee Strength Knee Manual Muscle Testing Left Flexion (S2) 4+ Good+ Extension (L3) 4+ Good+ Right Flexion (S2) 4+ Good+ Extension (L3) 4- Good- Ankle/Foot Strength Ankle and Foot Manual Muscle Testing Left Dorsiflexion (L4) 4- Good- Plantarflexion (S1) 4 Good Right Dorsiflexion (L4) 4+ Good+ Plantarflexion (S1) 4 Good Toe Strength Toe Manual Muscle Testing Left Great Toe Extension 4- Good- Right Great Toe Flexion 4 Good PT-OP-Q Treatments Start: 04/23/19 15:12 Freq: Status: Active Protocol: Document 03/11/20 12:18 SP (Rec: 03/11/20 13:11 SP [id number]) Cardio Equipment Recumbent Stepper (Sci-Fit) Duration (Minutes) 20 Resistance 7.5 Seat Position 17 Other 4 miles Gym Equipment Shuttle Recovery Unilateral Squats Details cued slow eccentric control Resistance 87# x10, 100# x10 Shuttle Recovery Platform Stable Reps/Time cued midfoot/heel press and glut facilitation Bilateral Squats Details cued slow eccentric control Resistance 150# Shuttle Recovery Platform Stable Reps/Time 15x2 Therapeutic Exercises Supine Exercises lateral trunk stretch Supine Exercise Name review HEP Side bilateral Reps/Minutes 2x 30 Trunk rotation LS Supine Exercise Name LTR Side bilateral Reps/Minutes 30 x3 Comments tolerated well hip flexor stretch Supine Exercise Name Simone Side bilateral Equipment Used strap Reps/Minutes 30x2 HS stretch Supine Exercise Name review HEP- no jerking movements Side bilateral Equipment Used strap and manual assist Reps/Minutes 30x2 Comments cued knee extension and slow elevate before knee bends hold 30-60! piriformis Supine Exercise Name review HEP Side bilateral Reps/Minutes 30x2 Comments instruction self: one leg straight with other crossed over other Standing Exercises step down Standing Exercise Name R>L Resistance contact rail Equipment Used 6 step Reps/Minutes 2x10 Comments cued slow concentric/eccentric with knee alignment with mid and behind toes Gait Training Gait Activity level surface Description step over/back yaakov forward single leg pre gait Device Used 0 Level of Assistance CGA Surface floor/ stable Distance/Duration 20 ft x4 laps each Treatment Focus SLS and glut facilitation L>R Neuro Re-Education Treatment Balance Activities hurdlesw Details open area Surface floor Equipment hurdles Reps/Duration 10x2 Comments step over step f/side stepping , cued slow pacing level pelvis, L glut and core COG over SLS facilitation during RLE advancement PT-OP-R Modalities Start: 04/23/19 15:12 Freq: Status: Active Protocol: Document 02/25/20 10:36 SAK (Rec: 02/25/20 11:23 SAK [id number]) Hot Pack/Cold Pack Treatment L hip Location L Piriformis, ITB Patient Position Sidelying Treatment Duration (minutes) 15 Patient Tolerance Good PT-OP-S Aquatic Treatment Start: 04/23/19 15:12 Freq: Status: Active Protocol: Document 10/05/19 10:15 LJ (Rec: 10/05/19 15:35 LJ [id number]) Aquatics Treatment Pool Entry/Exit Pool Entry/Exit Method Stairs Water Walking quick reverses fwd/bck Water Level Chest Level Walking Equipment Resistance Fins Level of Assistance Verbal Cues lunge walking Water Level Chest Level Walking Equipment Ankle Floats Comments 2 laps september, straight leg september Water Level Chest Level Walking Equipment Ankle Floats Comments 2 laps fwd,bck,side Water Level Chest Level Walking Equipment Ankle Floats Level of Assistance Verbal Cues Comments 2 laps Lower Extremity Exercises HS curls and kickbacks Details standing at wall w/min hand support Body Position Standing Water Level Chest Level Equipment Ankle Weight- 5.0# Reps/Duration 2x10 bilat Comments cues for no hip flexion and erect posture hip flex/ext, ab/ad Details standing at wall w/min hand support Body Position Standing Water Level Chest Level Equipment Ankle Floats Reps/Duration 2x15 bilat Comments controlled Lower Extremity Stretches quads Details and hip flex Equipment Large Noodle Reps/Duration 2x1:00 HC Details heel on second step Body Position Standing Water Level Chest Level Comments 2x 60sec bilat hamstring, ITB, add Details at wall Body Position Standing Water Level Chest Level Equipment hydrofit cuffs and 1 lg noodle Reps/Duration [id number] hold Upper Extremity Exercises bicep, tricep Body Position Standing Water Level Chest Level Equipment lg hydro bells Comments cues for core stab lat pull down, IR/ER Body Position Standing Water Level Chest Level Reps/Duration 12x bilat Comments cues for core stab hor ab/ad, flex/ext Body Position Standing Water Level Chest Level Equipment lg hand bells Reps/Duration 15 bilat x2 Spinal Exercises supine to stand Equipment Ankle Floats Reps/Duration 8 [place] Activities [place]oy Activities Bicycle,Cross Country,Running Duration 15 min PT-OP-T Assessment and Plan Start: 04/23/19 15:12 Freq: Status: Active Protocol: Document 03/11/20 12:18 SP (Rec: 03/11/20 13:11 SP [id number]) Physical Therapy Assessment Goals Gait and bal dysfunction Impairment Dynamic gait index (DGI) 16 Short Term Goal (STG) Decrease fall risk as evidenced by improvement in DGI to at least 20 09/17/19: goal progress 02/25/20: DGI Jail Goal (LTG) No reported falls, DGI improved to 22/24 02/25/20: DGI LTG Duration 04/03/20 Balance dysfunction Impairment Brown bal score 42/56 Short Term Goal (STG) Decrease fall risk as evidenced by improvement in Brown balance score to at least 48 09/17/19: goal progress 03/03/20: Brown Balance score 45 /56 STG Duration 09/13/19 Jail Goal (LTG) No reported falls, Brown balance score greater than 50 02/25/20: Brown balance score 45/ 56 LTG Duration 04/03/20 Recreational Activities 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 03/03/20: not currently doing bee-keeping due to difficulty, needs further work on body mechanics and balance LTG Duration 04/03/20 Perceived Disability Impairment Modified Oswestry Score 36% Jail Goal (LTG) Pt will grade overall perceived disability on the Modified Oswestry Questionnaire to 20% or less. 02/25/20: Oswestry scoere 45% during Covid, no PT, unable to do aquatic exercise LTG Duration 04/03/20 knowledge deficit Lieutenant General Goal (LTG) Pt will report good tolerance and compliance to indep aquatic exercise program 09/17/19: has not recently done , will restart today 02/25/20: unable to do during Covid19 shut down; patient was instructed to call to reserve time to go to the pool for aquatic exercise per new protocol LTG Duration 04/03/20 weakness Impairment Core and LE weakness Lieutenant General Goal (LTG) Pt will have MMT of LE strength graded 4+/5 or greater 09/13/19: some goal progress 02/25/20: most significant deficits in hip abduction 4-/5 renato and hip ext 3-/5 renato LTG Duration 04/03/20 pain Impairment 6/10 pain in low back, LLE, right LE Short Term Goal (STG) Pt will report pain 4/10 or less with daily functional activities. 09/17/19: recent worsening. STG Duration 03/17/20 Jail Goal (LTG) Pt will report pain 2/10 or less with daily functional activities. 03/03/20: currently reporting pain level of 5/10 LTG Duration 04/03/20 Assessment Summary Assessment Educated patient wait for therapist before entering gym for safety on equipment. Tx focused on posture with stepping durng gait with pre gait step over hurdles with cuing for slow pacing and wt shift over SLS while other LE advances better stance on RLe than LLE, improved with cuing and able to progress step over step 6 hurdles and decrease trunk side bend and R hip depression as laps progressed. Physical Therapy Plan Frequency and Duration Frequency of Treatment 2x/Week Duration of Treatment 5 weeks Plan of Care Start Date 02/25/20 Plan of Care End Date 04/03/20 Therapeutic Interventions Therapeutic Interventions Aquatic Therapy,Balance Training,Home Exercise Program ,Manual Therapy,Neuromuscular Re-education,Patient/Caregiver Education,Self-Care/Home Management,Therapeutic Activities,Therapeutic Exercises Modalities Cold Pack/Ice Massage,Electric Stimulation,Hot Packs Next Visit Focus/Plan Next Note Type Treatment Note Next Visit Plan Assess response to last tx: posture during gait with level pelvis, glut facilitation strengthening. Continue per PT POC: Therapeutic exercise with emphasis on posture, body mechanics, core stab, flexibility. Manual therapy to IT band, lumbar spine as indicated. End with moist heat to lumbar spine and ITband.
--- NOTE | 2020-03-14 12:32 | PT-OP ANOTE ---
Pt DNS for today's appt. Spoke with patient and didn't realize the time. Reminded of next appt 03/17/20 at 230 with verbal confirmation.
--- NOTE | 2020-03-17 15:15 | PT.OTN ---
Current Diagnoses Low back pain (03/17/20) Pain in right leg (03/17/20) Pain in left leg (03/17/20) Difficulty in walking, not elsewhere classified (03/17/20) Weakness (03/17/20) Physical Therapy Treatment Note PT-OP-A Visit Information Start: 04/23/19 15:12 Freq: Status: Active Protocol: Document 03/17/20 14:34 SP (Rec: 03/17/20 15:20 SP [id number]) Out-Patient Physical Therapy Visit Information Visit Information Visit Type Treatment Note Visit Note Educated to wait for therapist before coming into gym for safety. Visit Start Time 14:34 Visit Stop Time 15:15 Total Visit Minutes 41 Visit Number 29 Number of TEACHER LEARNING DISABLED Visits 3 PT-OP-B Current Condition Start: 04/23/19 15:12 Freq: Status: Active Protocol: Document 04/23/19 15:13 SAK (Rec: 04/23/19 16:05 SAK [id number]) Current Condition History of Current Condition Onset Date 2 yrs Current Complaints LBP History of Current Condition Reports persistent, function- limiting LBP with residual weakness in LE's. Previously having PT with best benefit from aquatic PT but had to discontinue due to medical issues. Underwent spinal decompression 2 years ago with no relief of pain. Has now had second opinion appointment and will be consulting further. Cortisone injection 4 wks ago helpful, has been trying to gradually increase his activity level to not overdo it. Not doing any exercises at home; stating I never sit down at home so am doing a lot of exercises. Found aquatic therapy helpful. Has a tendency to overdo. States he was told this am he has a problem with his liver, has no idea about plan for treatment. Pain is in lumbar spine and into LE's in past. Tingling both feet, reports tests for circulation show no problem. Some numbness bilateral feet. States no reflexes in LE's. Pain anterior left hip since helping a friend clean [employer] tub yesterday. Also had increase in pain a couple weeks ago with a day of extensive walking. Prior Treatments and Tests Cortisone injection 4 wks ago, no pain since shot, pain medicaitons, aquatic PT. Future Testing and Treatments Planned Sees orthopedist [place] in 1 wk to discuss POC. Treatment Goals Patient/Caregiver Goals Strengthen his muscles and be able to resume prior functional level. Requests a couple more PT visits in the pool since he had to discontinue aquatic PT early. 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 PT-OP-D Balance Start: 04/23/19 15:12 Freq: Status: Active Protocol: Document 07/30/19 14:26 SAK (Rec: 07/30/19 16:10 [facility] [id number]) Balance Tests Brown Balance Test Brown Balance Test Score 42 PT-OP-E Functional Tests Start: 04/23/19 15:12 Freq: Status: Active Protocol: Document 07/30/19 14:26 [facility] (Rec: 07/30/19 16:10 [facility] [id number]) Functional Tests Dynamic Gait Index (DGI) Score 16 PT-OP-J Posture/Palpation/Skin Start: 04/23/19 15:12 Freq: Status: Active Protocol: Document 04/23/19 15:13 SAK (Rec: 04/24/19 14:48 [facility] [id number]) Posture Evaluation Position Standing Head/C-Spine Posture Forward Head T-Spine Posture Increased Kyphosis L-Spine Posture Increased Lordosis Shoulder Posture (L) Rounded,(R) Rounded,(L) Forward,(R) Forward Pelvis Posture Anteriorly Tilted Hip Posture (L) Externally Rotated,(R) Externally Rotated Palpation Assessment Location anterior left hip Palpation Findings Soft Tissue Tightness, Tenderness piriformis Palpation Findings Soft Tissue Tightness PT-OP-K Range of Motion Start: 04/23/19 15:12 Freq: Status: Active Protocol: Document 07/30/19 14:26 SAK (Rec: 07/30/19 16:10 [facility] [id number]) Lumbar Spine Range of Motion Lumbar Spine Active Flexion 40 Extension 15 Lateral Flexion Left 35 Lateral Flexion Right 35 ROM Limitations Soft Tissue Tightness Hip Goniometric Range of Motion Hip Left Straight Leg Raise 55 Right Straight Leg Raise 45 Hip ROM Limitations Hip ROM Limitations Soft Tissue Tightness,Pain Knee Goniometric Range of Motion Knee Left Knee ROM WFL Yes Right Knee ROM WFL Yes Ankle and Foot Goniometric Range of Motion Ankle and Foot renato Dorsiflexion with Knee Flexed 5 Dorsiflexion with Knee Extended 0 Plantarflexion 45 PT-OP-M Strength Start: 04/23/19 15:12 Freq: Status: Active Protocol: Document 07/30/19 14:26 [facility] (Rec: 07/30/19 16:10 [facility] [id number]) Trunk Strength Trunk Manual Muscle Testing Flexion 4- Good- Extension 4- Good- Hip Strength Hip Manual Muscle Testing Left Flexion (L2) 4 Good Extension (S1) 3- Fair- Abduction 3+ Fair+ External Rotation 4- Good- Internal Rotation 4 Good Right Flexion (L2) 4 Good Extension (S1) 3- Fair- Abduction 4- Good- External Rotation 4- Good- Internal Rotation 4 Good Knee Strength Knee Manual Muscle Testing Left Flexion (S2) 4+ Good+ Extension (L3) 4+ Good+ Right Flexion (S2) 4+ Good+ Extension (L3) 4- Good- Ankle/Foot Strength Ankle and Foot Manual Muscle Testing Left Dorsiflexion (L4) 4- Good- Plantarflexion (S1) 4 Good Right Dorsiflexion (L4) 4+ Good+ Plantarflexion (S1) 4 Good Toe Strength Toe Manual Muscle Testing Left Great Toe Extension 4- Good- Right Great Toe Flexion 4 Good PT-OP-Q Treatments Start: 04/23/19 15:12 Freq: Status: Active Protocol: Document 03/17/20 14:34 SP (Rec: 03/17/20 15:20 SP [id number]) Cardio Equipment Recumbent Stepper (Sci-Fit) Duration (Minutes) 15 Resistance 7.5 Seat Position 17 Other 2.9 miles Gym Equipment Shuttle Balance chains red Details balance and weight shifts: WBOS, staggered feet, side to side Reps/Duration 10 Comments head turns, EC/EO WBOS, narrow FALLON, stagger stance (challenged L foward/ R back) Therapeutic Exercises Supine Exercises IT band Supine Exercise Name HEP review Side bilateral Reps/Minutes 2x 30 Comments strap HS stretch Supine Exercise Name review HEP- no jerking movements Side bilateral Equipment Used strap and manual assist Reps/Minutes 30x2 Comments cued knee extension and slow elevate before knee bends hold 30-60! piriformis Supine Exercise Name review HEP Side bilateral Reps/Minutes 30x2 Comments instruction self: one leg straight with other crossed over other Standing Exercises HS stretch Standing Exercise Name at stairs Equipment Used rail support Reps/Minutes 2x 30 sec Sit to stand Equipment Used 20 box Reps/Minutes x5 reps Comments cued hip hinge and knees behind toes Neuro Re-Education Treatment Balance Activities obstacle course Equipment foam, balance beam, hurdles Reps/Duration 10 min Comments cued slow pacing COG over FALLON, upright posture -CGA- Min support as needed PT-OP-R Modalities Start: 04/23/19 15:12 Freq: Status: Active Protocol: Document 02/25/20 10:36 SAK (Rec: 02/25/20 11:23 SAK [id number]) Hot Pack/Cold Pack Treatment L hip Location L Piriformis, ITB Patient Position Sidelying Treatment Duration (minutes) 15 Patient Tolerance Good PT-OP-S Aquatic Treatment Start: 04/23/19 15:12 Freq: Status: Active Protocol: Document 10/05/19 10:15 LJ (Rec: 10/05/19 15:35 LJ [id number]) Aquatics Treatment Pool Entry/Exit Pool Entry/Exit Method Stairs Water Walking quick reverses fwd/bck Water Level Chest Level Walking Equipment Resistance Fins Level of Assistance Verbal Cues lunge walking Water Level Chest Level Walking Equipment Ankle Floats Comments 2 laps march, straight leg september Water Level Chest Level Walking Equipment Ankle Floats Comments 2 laps fwd,bck,side Water Level Chest Level Walking Equipment Ankle Floats Level of Assistance Verbal Cues Comments 2 laps Lower Extremity Exercises HS curls and kickbacks Details standing at wall w/min hand support Body Position Standing Water Level Chest Level Equipment Ankle Weight- 5.0# Reps/Duration 2x10 bilat Comments cues for no hip flexion and erect posture hip flex/ext, ab/ad Details standing at wall w/min hand support Body Position Standing Water Level Chest Level Equipment Ankle Floats Reps/Duration 2x15 bilat Comments controlled Lower Extremity Stretches quads Details and hip flex Equipment Large Noodle Reps/Duration 2x1:00 HC Details heel on second step Body Position Standing Water Level Chest Level Comments 2x 60sec bilat hamstring, ITB, add Details at wall Body Position Standing Water Level Chest Level Equipment hydrofit cuffs and 1 lg noodle Reps/Duration [id number] hold Upper Extremity Exercises bicep, tricep Body Position Standing Water Level Chest Level Equipment lg hydro bells Comments cues for core stab lat pull down, IR/ER Body Position Standing Water Level Chest Level Reps/Duration 12x bilat Comments cues for core stab hor ab/ad, flex/ext Body Position Standing Water Level Chest Level Equipment lg hand bells Reps/Duration 15 bilat x2 Spinal Exercises supine to stand Equipment Ankle Floats Reps/Duration 8 [place] Activities Bicycle,Cross Country,Running Duration 15 min PT-OP-T Assessment and Plan Start: 04/23/19 15:12 Freq: Status: Active Protocol: Document 03/17/20 14:34 SP (Rec: 03/17/20 15:20 SP [id number]) Physical Therapy Assessment Goals Gait and bal dysfunction Impairment Dynamic gait index (DGI) 16 Short Term Goal (STG) Decrease fall risk as evidenced by improvement in DGI to at least 20 09/17/19: goal progress 02/25/20: DGI Director Appointment Goal (LTG) No reported falls, DGI improved to 22/24 02/25/20: DGI 18 LTG Duration 04/03/20 Balance dysfunction Impairment Brown bal score 42/56 Short Term Goal (STG) Decrease fall risk as evidenced by improvement in Brown balance score to at least 48 09/17/19: goal progress 03/03/20: Brown Balance score 45 /56 STG Duration 09/13/19 Director Appointment Goal (LTG) No reported falls, Brown balance score greater than 50 02/25/20: Brown balance score 45/ 56 LTG Duration 04/03/20 Recreational Activities 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 03/03/20: not currently doing bee-keeping due to difficulty, needs further work on body mechanics and balance LTG Duration 04/03/20 Perceived Disability Impairment Modified Oswestry Score 36% Longterm Goal (LTG) Pt will grade overall perceived disability on the Modified Oswestry Questionnaire to 20% or less. 02/25/20: Oswestry scoere 45% during Covid, no PT, unable to do aquatic exercise LTG Duration 04/03/20 knowledge deficit Director Appointment Goal (LTG) Pt will report good tolerance and compliance to indep aquatic exercise program 09/17/19: has not recently done , will restart today 02/25/20: unable to do during Covid19 shut down; patient was instructed to call to reserve time to go to the pool for aquatic exercise per new protocol LTG Duration 04/03/20 weakness Impairment Core and LE weakness Director Appointment Goal (LTG) Pt will have MMT of LE strength graded 4+/5 or greater 09/13/19: some goal progress 02/25/20: most significant deficits in hip abduction 4-/5 renato and hip ext 3-/5 renato LTG Duration 04/03/20 pain Impairment 6/10 pain in low back, LLE, right LE Short Term Goal (STG) Pt will report pain 4/10 or less with daily functional activities. 09/17/19: recent worsening. STG Duration 03/17/20 Director Appointment Goal (LTG) Pt will report pain 2/10 or less with daily functional activities. 03/03/20: currently reporting pain level of 5/10 LTG Duration 04/03/20 Assessment Summary Assessment Tx focused on posture and glut /core facilitation during balance activities. Pt improved on head turns and EC balance corrections on shuttle balance and uneven obstacle course, balance beam challenging. Cuing for no jerking movement during stretching to reduce risk for injury. I know but it helps me get into the right position . Pt improved with very little wt shift lean, more of pelvis side glide during gait leaving today. I feel little better. Physical Therapy Plan Frequency and Duration Frequency of Treatment 2x/Week Duration of Treatment 5 weeks Plan of Care Start Date 02/25/20 Plan of Care End Date 04/03/20 Therapeutic Interventions Therapeutic Interventions Aquatic Therapy,Balance Training,Home Exercise Program ,Manual Therapy,Neuromuscular Re-education,Patient/Caregiver Education,Self-Care/Home Management,Therapeutic Activities,Therapeutic Exercises Modalities Cold Pack/Ice Massage,Electric Stimulation,Hot Packs Next Visit Focus/Plan Next Note Type Treatment Note Next Visit Plan Assess response to last tx: posture during balance activities with glut and core strengthening facilitation. Continue per PT POC: Therapeutic exercise with emphasis on posture, body mechanics, core stab, flexibility. Manual therapy to IT band, lumbar spine as indicated.
--- NOTE | 2020-03-19 16:58 | PT.OTN ---
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 Previously having PT with best benefit from aquatic PT but had to discontinue due to medical issues. Underwent spinal decompression 2 years ago with no relief of pain. Has now had second opinion appointment and will be consulting further. Cortisone injection 4 wks ago helpful, has been trying to gradually increase his activity level to not overdo it. Not doing any exercises at home; stating I never sit down at home so am doing a lot of exercises. Found aquatic therapy helpful. Has a tendency to overdo. States he was told this am he has a problem with his liver, has no idea about plan for treatment. Pain is in lumbar spine and into LE's in past. Tingling both feet, reports tests for circulation show no problem. Some numbness bilateral feet. States no reflexes in LE's. Pain anterior left hip since helping a friend clean jacuzzi tub yesterday. Also had increase in pain a couple weeks ago with a day of extensive walking. Prior Treatments and Tests Cortisone injection 4 wks ago, no pain since shot, pain medicaitons, aquatic PT. Future Testing and Treatments Planned Sees [place]opedist [place] 1 wk to discuss POC. Treatment Goals Patient/Caregiver Goals Strengthen his muscles and be able to resume prior functional level. Requests a couple more PT visits in the pool since he had to discontinue aquatic PT early. 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 Current Functional Impairments (Reported) Functional Limitations- ADL's fatigues Functional Limitations- Mobility/Gait limited distances Functional Limitations- Work/School Has not returned to prior activities due to fear of hurting his back PT-OP-C Subjective Start: 04/23/19 15:12 Freq: Status: Active Protocol: Document 03/19/20 10:37 SAK (Rec: 03/19/20 11:13 SAK [id number]) OP-PT Subjective Patient Comments Patient Comments knees are about 5/10 pain, back mostly ok except when leaning over the sink PT-OP-D Balance Start: 04/23/19 15:12 Freq: Status: Active Protocol: Document 07/30/19 14:26 SAK (Rec: 07/30/19 16:10 [facility] [id number]) Balance Tests Brown Balance Test Brown Balance Test Score 42 PT-OP-E Functional Tests Start: 04/23/19 15:12 Freq: Status: Active Protocol: Document 07/30/19 14:26 SAK (Rec: 07/30/19 16:10 [facility] [id number]) Functional Tests Dynamic Gait Index (DGI) Score 16 PT-OP-J Posture/Palpation/Skin Start: 04/23/19 15:12 Freq: Status: Active Protocol: Document 04/23/19 15:13 [facility] (Rec: 04/24/19 14:48 [facility] [id number]) Posture Evaluation Position Standing Head/C-Spine Posture Forward Head T-Spine Posture Increased Kyphosis L-Spine Posture Increased Lordosis Shoulder Posture (L) Rounded,(R) Rounded,(L) Forward,(R) Forward Pelvis Posture Anteriorly Tilted Hip Posture (L) Externally Rotated,(R) Externally Rotated Palpation Assessment Location anterior left hip Palpation Findings Soft Tissue Tightness, Tenderness piriformis Palpation Findings Soft Tissue Tightness PT-OP-K Range of Motion Start: 04/23/19 15:12 Freq: Status: Active Protocol: Document 07/30/19 14:26 [facility] (Rec: 07/30/19 16:10 [facility] [id number]) Lumbar Spine Range of Motion Lumbar Spine Active Flexion 40 Extension 15 Lateral Flexion Left 35 Lateral Flexion Right 35 ROM Limitations Soft Tissue Tightness Hip Goniometric Range of Motion Hip Left Straight Leg Raise 55 Right Straight Leg Raise 45 Hip ROM Limitations Hip ROM Limitations Soft Tissue Tightness,Pain Knee Goniometric Range of Motion Knee Left Knee ROM WFL Yes Right Knee ROM WFL Yes Ankle and Foot Goniometric Range of Motion Ankle and Foot renato Dorsiflexion with Knee Flexed 5 Dorsiflexion with Knee Extended 0 Plantarflexion 45 PT-OP-M Strength Start: 04/23/19 15:12 Freq: Status: Active Protocol: Document 07/30/19 14:26 [facility] (Rec: 07/30/19 16:10 [facility] [id number]) Trunk Strength Trunk Manual Muscle Testing Flexion 4- Good- Extension 4- Good- Hip Strength Hip Manual Muscle Testing Left Flexion (L2) 4 Good Extension (S1) 3- Fair- Abduction 3+ Fair+ External Rotation 4- Good- Internal Rotation 4 Good Right Flexion (L2) 4 Good Extension (S1) 3- Fair- Abduction 4- Good- External Rotation 4- Good- Internal Rotation 4 Good Knee Strength Knee Manual Muscle Testing Left Flexion (S2) 4+ Good+ Extension (L3) 4+ Good+ Right Flexion (S2) 4+ Good+ Extension (L3) 4- Good- Ankle/Foot Strength Ankle and Foot Manual Muscle Testing Left Dorsiflexion (L4) 4- Good- Plantarflexion (S1) 4 Good Right Dorsiflexion (L4) 4+ Good+ Plantarflexion (S1) 4 Good Toe Strength Toe Manual Muscle Testing Left Great Toe Extension 4- Good- Right Great Toe Flexion 4 Good PT-OP-Q Treatments Start: 04/23/19 15:12 Freq: Status: Active Protocol: Document 03/19/20 10:37 [facility] (Rec: 03/19/20 11:13 [facility] [id number]) Cardio Equipment Recumbent Stepper (Sci-Fit) Duration (Minutes) 15 Resistance 7.5 Seat Position 17 Gym Equipment Shuttle Balance chains red Details balance and weight shifts: WBOS, staggered feet, side to side Reps/Duration 10 Comments head turns, EC/EO WBOS, narrow FALLON, stagger stance (challenged L foward/ R back) Therapeutic Exercises Supine Exercises lateral trunk stretch Supine Exercise Name review HEP Side bilateral Reps/Minutes 2x 30 IT band Supine Exercise Name HEP review Side bilateral Reps/Minutes 2x 30 Comments strap ITB Side bilateral Reps/Minutes 2x Comments strap HS stretch Supine Exercise Name review HEP- no jerking movements Side bilateral Equipment Used strap and manual assist Reps/Minutes 30x2 Comments cued knee extension and slow elevate before knee bends hold 30-60! piriformis Supine Exercise Name review HEP Side bilateral Reps/Minutes 30x2 Comments with ankle over bent knee, and knee toward opposite shoulder Sitting Exercises HS Sitting Exercise Name stretch Equipment Used strap Reps/Minutes 30 sec x 2 Standing Exercises HS stretch Standing Exercise Name trunk flex Reps/Minutes 2x 30 sec Neuro Re-Education Treatment Balance Activities obstacle course Equipment foam, balance beam, hurdles Reps/Duration 10 min Comments cued slow pacing COG over FALLON, upright posture -CGA- Min support as needed PT-OP-R Modalities Start: 04/23/19 15:12 Freq: Status: Active Protocol: Document 02/25/20 10:36 SAK (Rec: 02/25/20 11:23 SAK [id number]) Hot Pack/Cold Pack Treatment L hip Location L Piriformis, ITB Patient Position Sidelying Treatment Duration (minutes) 15 Patient Tolerance Good PT-OP-S Aquatic Treatment Start: 04/23/19 15:12 Freq: Status: Active Protocol: Document 10/05/19 10:15 JAMIN (Rec: 10/05/19 15:35 LJ [id number]) Aquatics Treatment Pool Entry/Exit Pool Entry/Exit Method Stairs Water Walking quick reverses fwd/bck Water Level Chest Level Walking Equipment Resistance Fins Level of Assistance Verbal Cues lunge walking Water Level Chest Level Walking Equipment Ankle Floats Comments 2 laps march, straight leg march Water Level Chest Level Walking Equipment Ankle Floats Comments 2 laps fwd,bck,side Water Level Chest Level Walking Equipment Ankle Floats Level of Assistance Verbal Cues Comments 2 laps Lower Extremity Exercises HS curls and kickbacks Details standing at wall w/min hand support Body Position Standing Water Level Chest Level Equipment Ankle Weight- 5.0# Reps/Duration 2x10 bilat Comments cues for no hip flexion and erect posture hip flex/ext, ab/ad Details standing at wall w/min hand support Body Position Standing Water Level Chest Level Equipment Ankle Floats Reps/Duration 2x15 bilat Comments controlled Lower Extremity Stretches quads Details and hip flex Equipment Large Noodle Reps/Duration 2x1:00 HC Details heel on second step Body Position Standing Water Level Chest Level Comments 2x 60sec bilat hamstring, ITB, add Details at wall Body Position Standing Water Level Chest Level Equipment hydrofit cuffs and 1 lg noodle Reps/Duration [id number] hold Upper Extremity Exercises bicep, tricep Body Position Standing Water Level Chest Level Equipment lg hydro bells Comments cues for core stab lat pull down, IR/ER Body Position Standing Water Level Chest Level Reps/Duration 12x bilat Comments cues for core stab hor ab/ad, flex/ext Body Position Standing Water Level Chest Level Equipment lg hand bells Reps/Duration 15 bilat x2 Spinal Exercises supine to stand Equipment Ankle Floats Reps/Duration 8 [place] Activities [place] Activities Bicycle,Cross Country,Running Duration 15 min PT-OP-T Assessment and Plan Start: 04/23/19 15:12 Freq: Status: Active Protocol: Document 03/19/20 10:37 [facility] (Rec: 03/19/20 11:13 [facility] [id number]) Physical Therapy Assessment Goals Gait and bal dysfunction Impairment Dynamic gait index (DGI) 16/24 Short Term Goal (STG) Decrease fall risk as evidenced by improvement in DGI to at least 20 09/17/19: goal progress 02/25/20: DGI 18 Usp Goal (LTG) No reported falls, DGI improved to 22/24 02/25/20: DGI 18/24 LTG Duration 04/03/20 Balance dysfunction Impairment Brown bal score 42/56 Short Term Goal (STG) Decrease fall risk as evidenced by improvement in Brown balance score to at least 48 09/17/19: goal progress 03/03/20: Brown Balance score 45 /56 STG Duration 09/13/19 Usp Goal (LTG) No reported falls, Brown balance score greater than 50 02/25/20: Brown balance score 45/ 56 LTG Duration 04/03/20 Recreational Activities 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 03/03/20: not currently doing bee-keeping due to difficulty, needs further work on body mechanics and balance LTG Duration 04/03/20 Perceived Disability Impairment Modified Oswestry Score 36% Usp Goal (LTG) Pt will grade overall perceived disability on the Modified Oswestry Questionnaire to 20% or less. 02/25/20: Oswestry scoere 45% during Covid, no PT, unable to do aquatic exercise LTG Duration 04/03/20 knowledge deficit Usp Goal (LTG) Pt will report good tolerance and compliance to indep aquatic exercise program 09/17/19: has not recently done , will restart today 02/25/20: unable to do during Covid19 shut down; patient was instructed to call to reserve time to go to the pool for aquatic exercise per new protocol LTG Duration 04/03/20 weakness Impairment Core and LE weakness Usp Goal (LTG) Pt will have MMT of LE strength graded 4+/5 or greater 09/13/19: some goal progress 02/25/20: most significant deficits in hip abduction 4-/5 renato and hip ext 3-/5 renato LTG Duration 04/03/20 pain Impairment 6/10 pain in low back, LLE, right LE Short Term Goal (STG) Pt will report pain 4/10 or less with daily functional activities. 09/17/19: recent worsening. STG Duration 03/17/20 Usp Goal (LTG) Pt will report pain 2/10 or less with daily functional activities. 03/03/20: currently reporting pain level of 5/10 LTG Duration 04/03/20 Assessment Summary Assessment Patient cued for proper posture and form with stretches, tends to have no pain no gain attitude despite instruction for slow, smooth, pain-free. Balance improved on shuttle balance and balance beam. Minimal back pain, but hip and knee pain continue, though at lower level. Physical Therapy Plan Frequency and Duration Frequency of Treatment 2x/Week Duration of Treatment 5 weeks Plan of Care Start Date 02/25/20 Plan of Care End Date 04/03/20 Therapeutic Interventions Therapeutic Interventions Aquatic Therapy,Balance Training,Home Exercise Program ,Manual Therapy,Neuromuscular Re-education,Patient/Caregiver Education,Self-Care/Home Management,Therapeutic Activities,Therapeutic Exercises Modalities Cold Pack/Ice Massage,Electric Stimulation,Hot Packs Next Visit Focus/Plan Next Note Type Treatment Note Next Visit Plan Continue per PT POC: Therapeutic exercise with emphasis on posture, body mechanics, core stab, flexibility. Manual therapy to IT band, lumbar spine as indicated.
--- NOTE | 2020-03-25 12:00 | PT.OTN ---
Current Diagnoses Low back pain (03/25/20) Pain in right leg (03/25/20) Pain in left leg (03/25/20) Difficulty in walking, not elsewhere classified (03/25/20) Weakness (03/25/20) Physical Therapy Treatment Note PT-OP-A Visit Information Start: 04/23/19 15:12 Freq: Status: Active Protocol: Document 03/25/20 11:15 [facility] (Rec: 03/25/20 12:00 [facility] [id number]) Out-Patient Physical Therapy Visit Information Visit Information Visit Type Treatment Note Visit Start Time 11:15 Visit Stop Time 12:09 Total Visit Minutes 54 Visit Number 31 Number of CORN COOKER Visits 0 PT-OP-B Current Condition Start: 04/23/19 15:12 Freq: Status: Active Protocol: Document 04/23/19 15:13 [facility] (Rec: 04/23/19 16:05 [facility] [id number]) Current Condition History of Current Condition Onset Date 2 yrs Current Complaints LBP History of Current Condition Reports persistent, function- limiting LBP with residual weakness in LE's. Previously having PT with best benefit from aquatic PT but had to discontinue due to medical issues. Underwent spinal decompression 2 years ago with no relief of pain. Has now had second opinion appointment and will be consulting further. Cortisone injection 4 wks ago helpful, has been trying to gradually increase his activity level to not overdo it. Not doing any exercises at home; stating I never sit down at home so am doing a lot of exercises. Found aquatic therapy helpful. Has a tendency to overdo. States he was told this am he has a problem with his liver, has no idea about plan for treatment. Pain is in lumbar spine and into LE's in past. Tingling both feet, reports tests for circulation show no problem. Some numbness bilateral feet. States no reflexes in LE's. Pain anterior left hip since helping a friend clean jacuzzi tub yesterday. Also had increase in pain a couple weeks ago with a day of extensive walking. Prior Treatments and Tests Cortisone injection 4 wks ago, no pain since shot, pain medicaitons, aquatic PT. Future Testing and Treatments Planned Sees orthopedist at [place] in 1 wk to discuss POC. Treatment Goals Patient/Caregiver Goals Strengthen his muscles and be able to resume prior functional level. Requests a couple more PT visits in the pool since he had to discontinue aquatic PT early. 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 Looked up info on sciatic and can't remember the exercise he saw but is going to try. PT-OP-D Balance Start: 04/23/19 15:12 Freq: Status: Active Protocol: Document 07/30/19 14:26 [facility] (Rec: 07/30/19 16:10 [facility] [id number]) Balance Tests Brown Balance Test Brown Balance Test Score 42 PT-OP-E Functional Tests Start: 04/23/19 15:12 Freq: Status: Active Protocol: Document 07/30/19 14:26 [facility] (Rec: 07/30/19 16:10 [facility] [id number]) Functional Tests Dynamic Gait Index (DGI) Score 16 PT-OP-J Posture/Palpation/Skin Start: 04/23/19 15:12 Freq: Status: Active Protocol: Document 04/23/19 15:13 [facility] (Rec: 04/24/19 14:48 [facility] [id number]) Posture Evaluation Position Standing Head/C-Spine Posture Forward Head T-Spine Posture Increased Kyphosis L-Spine Posture Increased Lordosis Shoulder Posture (L) Rounded,(R) Rounded,(L) Forward,(R) Forward Pelvis Posture Anteriorly Tilted Hip Posture (L) Externally Rotated,(R) Externally Rotated Palpation Assessment Location anterior left hip Palpation Findings Soft Tissue Tightness, Tenderness piriformis Palpation Findings Soft Tissue Tightness PT-OP-K Range of Motion Start: 04/23/19 15:12 Freq: Status: Active Protocol: Document 07/30/19 14:26 [facility] (Rec: 07/30/19 16:10 [facility] [id number]) Lumbar Spine Range of Motion Lumbar Spine Active Flexion 40 Extension 15 Lateral Flexion Left 35 Lateral Flexion Right 35 ROM Limitations Soft Tissue Tightness Hip Goniometric Range of Motion Hip Left Straight Leg Raise 55 Right Straight Leg Raise 45 Hip ROM Limitations Hip ROM Limitations Soft Tissue Tightness,Pain Knee Goniometric Range of Motion Knee Left Knee ROM WFL Yes Right Knee ROM WFL Yes Ankle and Foot Goniometric Range of Motion Ankle and Foot renato Dorsiflexion with Knee Flexed 5 Dorsiflexion with Knee Extended 0 Plantarflexion 45 PT-OP-M Strength Start: 04/23/19 15:12 Freq: Status: Active Protocol: Document 07/30/19 14:26 [facility] (Rec: 07/30/19 16:10 [facility] [id number]) Trunk Strength Trunk Manual Muscle Testing Flexion 4- Good- Extension 4- Good- Hip Strength Hip Manual Muscle Testing Left Flexion (L2) 4 Good Extension (S1) 3- Fair- Abduction 3+ Fair+ External Rotation 4- Good- Internal Rotation 4 Good Right Flexion (L2) 4 Good Extension (S1) 3- Fair- Abduction 4- Good- External Rotation 4- Good- Internal Rotation 4 Good Knee Strength Knee Manual Muscle Testing Left Flexion (S2) 4+ Good+ Extension (L3) 4+ Good+ Right Flexion (S2) 4+ Good+ Extension (L3) 4- Good- Ankle/Foot Strength Ankle and Foot Manual Muscle Testing Left Dorsiflexion (L4) 4- Good- Plantarflexion (S1) 4 Good Right Dorsiflexion (L4) 4+ Good+ Plantarflexion (S1) 4 Good Toe Strength Toe Manual Muscle Testing Left Great Toe Extension 4- Good- Right Great Toe Flexion 4 Good PT-OP-Q Treatments Start: 04/23/19 15:12 Freq: Status: Active Protocol: Document 03/25/20 11:15 [facility] (Rec: 03/25/20 12:00 [facility] [id number]) Cardio Equipment Recumbent Stepper (Sci-Fit) Duration (Minutes) 15 Resistance 7.5 Seat Position 17 Gym Equipment Shuttle Balance chains red Details balance and weight shifts: WBOS, staggered feet, side to side Reps/Duration 10 Comments head turns, EC/EO WBOS, narrow [place]ON, stagger stance (challenged L foward/ R back) Therapeutic Exercises Supine Exercises IT band Supine Exercise Name HEP review Side bilateral Reps/Minutes 2x 30 Comments strap ITB Side bilateral Reps/Minutes 2x Comments strap HS stretch Supine Exercise Name review HEP- no jerking movements Side bilateral Equipment Used strap and manual assist Reps/Minutes 30x2 Comments cued knee extension and slow elevate before knee bends hold 30-60! piriformis Supine Exercise Name review HEP Side bilateral Reps/Minutes 30x2 Comments with ankle over bent knee, and knee toward opposite shoulder Gait Training Gait Activity level surface Comments mirror for visual feedback to decrease limp and lateral sway . Manual Therapy Treatment Soft Tissue Mobilization TFL, glut med, PF Body Location L Mobilization Type Cross-Friction,Instrument Assisted,Rolling,Sustained Pressure Intensity/Depth Moderate PT-OP-R Modalities Start: 04/23/19 15:12 Freq: Status: Active Protocol: Document 03/25/20 11:15 [facility] (Rec: 03/25/20 12:00 [facility] [id number]) Hot Pack/Cold Pack Treatment L hip Location L Piriformis, ITB, glut med Patient Position Sidelying Treatment Duration (minutes) 15 Patient Tolerance Good PT-OP-S Aquatic Treatment Start: 04/23/19 15:12 Freq: Status: Active Protocol: Document 10/05/19 10:15 [facility] (Rec: 10/05/19 15:35 [facility] [id number]) Aquatics Treatment Pool Entry/Exit Pool Entry/Exit Method Stairs Water Walking quick reverses fwd/bck Water Level Chest Level Walking Equipment Resistance Fins Level of Assistance Verbal Cues lunge walking Water Level Chest Level Walking Equipment Ankle Floats Comments 2 laps march, straight leg march Water Level Chest Level Walking Equipment Ankle Floats Comments 2 laps fwd,bck,side Water Level Chest Level Walking Equipment Ankle Floats Level of Assistance Verbal Cues Comments 2 laps Lower Extremity Exercises HS curls and kickbacks Details standing at wall w/min hand support Body Position Standing Water Level Chest Level Equipment Ankle Weight- 5.0# Reps/Duration 2x10 bilat Comments cues for no hip flexion and erect posture hip flex/ext, ab/ad Details standing at wall w/min hand support Body Position Standing Water Level Chest Level Equipment Ankle Floats Reps/Duration 2x15 bilat Comments controlled Lower Extremity Stretches quads Details and hip flex Equipment Large Noodle Reps/Duration 2x1:00 HC Details heel on second step Body Position Standing Water Level Chest Level Comments 2x 60sec bilat hamstring, ITB, add Details at wall Body Position Standing Water Level Chest Level Equipment hydrofit cuffs and 1 lg noodle Reps/Duration [id number] hold Upper Extremity Exercises bicep, tricep Body Position Standing Water Level Chest Level Equipment lg hydro bells Comments cues for core stab lat pull down, IR/ER Body Position Standing Water Level Chest Level Reps/Duration 12x bilat Comments cues for core stab hor ab/ad, flex/ext Body Position Standing Water Level Chest Level Equipment lg hand bells Reps/Duration 15 bilat x2 Spinal Exercises supine to stand Equipment Ankle Floats Reps/Duration 8 [place] Activities [place] Activities Bicycle,Cross [place],Running Duration 15 min PT-OP-T Assessment and Plan Start: 04/23/19 15:12 Freq: Status: Active Protocol: Document 03/25/20 11:15 [facility] (Rec: 03/25/20 12:00 [facility] [id number]) Physical Therapy Assessment Goals Gait and bal dysfunction Impairment Dynamic gait index (DGI) 16 Short Term Goal (STG) Decrease fall risk as evidenced by improvement in DGI to at least 20 09/17/19: goal progress 02/25/20: DGI 18 Retirement Goal (LTG) No reported falls, DGI improved to 22/24 02/25/20: DGI 18/24 LTG Duration 04/03/20 Balance dysfunction Impairment Brown bal score 42/56 Short Term Goal (STG) Decrease fall risk as evidenced by improvement in Brown balance score to at least 48 09/17/19: goal progress 03/03/20: Brown Balance score 45 /56 STG Duration 09/13/19 Retirement Goal (LTG) No reported falls, Brown balance score greater than 50 02/25/20: Brown balance score 45/ 56 LTG Duration 04/03/20 Recreational Activities 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 03/03/20: not currently doing bee-keeping due to difficulty, needs further work on body mechanics and balance LTG Duration 04/03/20 Perceived Disability Impairment Modified Oswestry Score 36% Retirement Goal (LTG) Pt will grade overall perceived disability on the Modified Oswestry Questionnaire to 20% or less. 02/25/20: Oswestry scoere 45% during Covid, no PT, unable to do aquatic exercise LTG Duration 04/03/20 knowledge deficit Retirement Goal (LTG) Pt will report good tolerance and compliance to indep aquatic exercise program 09/17/19: has not recently done , will restart today 02/25/20: unable to do during Covid19 shut down; patient was instructed to call to reserve time to go to the pool for aquatic exercise per new protocol LTG Duration 04/03/20 weakness Impairment Core and LE weakness Retirement Goal (LTG) Pt will have MMT of LE strength graded 4+/5 or greater 09/13/19: some goal progress 02/25/20: most significant deficits in hip abduction 4-/5 renato and hip ext 3-/5 renato LTG Duration 04/03/20 pain Impairment 6/10 pain in low back, LLE, right LE Short Term Goal (STG) Pt will report pain 4/10 or less with daily functional activities. 09/17/19: recent worsening. STG Duration 03/17/20 Retirement Goal (LTG) Pt will report pain 2/10 or less with daily functional activities. 03/03/20: currently reporting pain level of 5/10 LTG Duration 04/03/20 Assessment Summary Assessment Limping due to left hip pain though able to mostly self- correct with mirror for visual feedback. Palpable muscle tightness throughout piriformis, glut med, IT band; decreased with manual treatment. Will revisit transverse abdominis muscle activation. Physical Therapy Plan Frequency and Duration Frequency of Treatment 2x/Week Duration of Treatment 5 weeks Plan of Care Start Date 02/25/20 Plan of Care End Date 04/03/20 Therapeutic Interventions Therapeutic Interventions Aquatic Therapy,Balance Training,Home Exercise Program ,Manual Therapy,Neuromuscular Re-education,Patient/Caregiver Education,Self-Care/Home Management,Therapeutic Activities,Therapeutic Exercises Modalities Cold Pack/Ice Massage,Electric Stimulation,Hot Packs Next Visit Focus/Plan Next Note Type Treatment Note Next Visit Plan Assess response to today's treatment, continue with inccreased manual work if helpful, review TrA muscle activation.
--- NOTE | 2020-03-28 09:45 | PT.OTN ---
Current Diagnoses Low back pain (03/28/20) Pain in right leg (03/28/20) Pain in left leg (03/28/20) Difficulty in walking, not elsewhere classified (03/28/20) Weakness (03/28/20) Physical Therapy Treatment Note PT-OP-A Visit Information Start: 04/23/19 15:12 Freq: Status: Active Protocol: Document 03/28/20 09:00 SP (Rec: 03/28/20 10:27 SP [id number]) Out-Patient Physical Therapy Visit Information Visit Information Visit Type Treatment Note Visit Note Pt instructed to wait in waiting room for [employer] and scheduled tx time, compliance post education. Visit Start Time 09:00 Visit Stop Time 09:45 Total Visit Minutes 45 Visit Number 32 Number of [employer] Visits 1 PT-OP-B Current Condition Start: 04/23/19 15:12 Freq: Status: Active Protocol: Document 04/23/19 15:13 SAK (Rec: 04/23/19 16:05 SAK [id number]) Current Condition History of Current Condition Onset Date 2 yrs Current Complaints LBP History of Current Condition Reports persistent, function- limiting LBP with residual weakness in LE's. Previously having PT with best benefit from aquatic PT but had to discontinue due to medical issues. Underwent spinal decompression 2 years ago with no relief of pain. Has now had second opinion appointment and will be consulting further. Cortisone injection 4 wks ago helpful, has been trying to gradually increase his activity level to not overdo it. Not doing any exercises at home; stating I never sit down at home so am doing a lot of exercises. Found aquatic therapy helpful. Has a tendency to overdo. States he was told this am he has a problem with his liver, has no idea about plan for treatment. Pain is in lumbar spine and into LE's in past. Tingling both feet, reports tests for circulation show no problem. Some numbness bilateral feet. States no reflexes in LE's. Pain anterior left hip since helping a friend clean jacuzzi tub yesterday. Also had increase in pain a couple weeks ago with a day of extensive walking. Prior Treatments and Tests Cortisone injection 4 wks ago, no pain since shot, pain medicaitons, aquatic PT. Future Testing and Treatments Planned Sees orthopedist at [place] in 1 wk to discuss POC. Treatment Goals Patient/Caregiver Goals Strengthen his muscles and be able to resume prior functional level. Requests a couple more PT visits in the pool since he had to discontinue aquatic PT early. 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 PT-OP-D Balance Start: 04/23/19 15:12 Freq: Status: Active Protocol: Document 07/30/19 14:26 [facility] (Rec: 07/30/19 16:10 [facility] [id number]) Balance Tests Brown Balance Test Brown Balance Test Score 42 PT-OP-E Functional Tests Start: 04/23/19 15:12 Freq: Status: Active Protocol: Document 07/30/19 14:26 [facility] (Rec: 07/30/19 16:10 [facility] [id number]) Functional Tests Dynamic Gait Index (DGI) Score 16 PT-OP-J Posture/Palpation/Skin Start: 04/23/19 15:12 Freq: Status: Active Protocol: Document 04/23/19 15:13 SAK (Rec: 04/24/19 14:[address] [facility] [id number]) Posture Evaluation Position Standing Head/C-Spine Posture Forward Head T-Spine Posture Increased Kyphosis L-Spine Posture Increased Lordosis Shoulder Posture (L) Rounded,(R) Rounded,(L) Forward,(R) Forward Pelvis Posture Anteriorly Tilted Hip Posture (L) Externally Rotated,(R) Externally Rotated Palpation Assessment Location anterior left hip Palpation Findings Soft Tissue Tightness, Tenderness piriformis Palpation Findings Soft Tissue Tightness PT-OP-K Range of Motion Start: 04/23/19 15:12 Freq: Status: Active Protocol: Document 07/30/19 14:26 SAK (Rec: 07/30/19 16:10 SAK [id number]) Lumbar Spine Range of Motion Lumbar Spine Active Flexion 40 Extension 15 Lateral Flexion Left 35 Lateral Flexion Right 35 ROM Limitations Soft Tissue Tightness Hip Goniometric Range of Motion Hip Left Straight Leg Raise 55 Right Straight Leg Raise 45 Hip ROM Limitations Hip ROM Limitations Soft Tissue Tightness,Pain Knee Goniometric Range of Motion Knee Left Knee ROM WFL Yes Right Knee ROM WFL Yes Ankle and Foot Goniometric Range of Motion Ankle and Foot renato Dorsiflexion with Knee Flexed 5 Dorsiflexion with Knee Extended 0 Plantarflexion 45 PT-OP-M Strength Start: 04/23/19 15:12 Freq: Status: Active Protocol: Document 07/30/19 14:26 [facility] (Rec: 07/30/19 16:10 [facility] [id number]) Trunk Strength Trunk Manual Muscle Testing Flexion 4- Good- Extension 4- Good- Hip Strength Hip Manual Muscle Testing Left Flexion (L2) 4 Good Extension (S1) 3- Fair- Abduction 3+ Fair+ External Rotation 4- Good- Internal Rotation 4 Good Right Flexion (L2) 4 Good Extension (S1) 3- Fair- Abduction 4- Good- External Rotation 4- Good- Internal Rotation 4 Good Knee Strength Knee Manual Muscle Testing Left Flexion (S2) 4+ Good+ Extension (L3) 4+ Good+ Right Flexion (S2) 4+ Good+ Extension (L3) 4- Good- Ankle/Foot Strength Ankle and Foot Manual Muscle Testing Left Dorsiflexion (L4) 4- Good- Plantarflexion (S1) 4 Good Right Dorsiflexion (L4) 4+ Good+ Plantarflexion (S1) 4 Good Toe Strength Toe Manual Muscle Testing Left Great Toe Extension 4- Good- Right Great Toe Flexion 4 Good PT-OP-Q Treatments Start: 04/23/19 15:12 Freq: Status: Active Protocol: Document 03/28/20 09:00 SP (Rec: 03/28/20 10:27 SP [id number]) Cardio Equipment Recumbent Stepper (Sci-Fit) Duration (Minutes) 9 Resistance 7.5 Seat Position 17 Other 1.83miles, 42-44 RPMs Gym Equipment Shuttle Balance chains red Details balance and weight shifts: WBOS, staggered feet, side to side Reps/Duration 10 Comments head turns, EC/EO WBOS, narrow FALLON, stagger stance (challenged L foward/ R back) Therapeutic Exercises Supine Exercises adductor stretch w /strap Side bilateral Reps/Minutes 30 IT band Supine Exercise Name HEP review Side bilateral Reps/Minutes 2x 30 Comments strap HS stretch Supine Exercise Name review HEP- no jerking movements Side bilateral Equipment Used strap and manual assist Reps/Minutes 30x2 Comments cued knee extension and slow elevate before knee bends hold 30-60! piriformis Supine Exercise Name review HEP Side bilateral Reps/Minutes 30x2 Comments with ankle over bent knee hip ER SKTC Supine Exercise Name review HEP- performs if pain in back Side bilateral Reps/Minutes 30x2 Comments self Standing Exercises shoulder extension Resistance L3 TB Reps/Minutes 10x5 Comments WBOS, scap depression stab during ext row Resistance L4 TB Reps/Minutes 10x5 Comments stagger WBOS stance, soft knee Gait Training Gait Activity level surface Description f/ b/ side stepping cued slow pacing Treatment Focus multiple laps Comments mirror for visual feedback to decrease limp and lateral sway . PT-OP-R Modalities Start: 04/23/19 15:12 Freq: Status: Active Protocol: Document 03/25/20 11:15 SAK (Rec: 03/25/20 12:00 SAK [id number]) Hot Pack/Cold Pack Treatment L hip Location L Piriformis, ITB, glut med Patient Position Sidelying Treatment Duration (minutes) 15 Patient Tolerance Good PT-OP-S Aquatic Treatment Start: 04/23/19 15:12 Freq: Status: Active Protocol: Document 10/05/19 10:15 LJ (Rec: 10/05/19 15:35 LJ [id number]) Aquatics Treatment Pool Entry/Exit Pool Entry/Exit Method Stairs Water Walking quick reverses fwd/bck Water Level Chest Level Walking Equipment Resistance Fins Level of Assistance Verbal Cues lunge walking Water Level Chest Level Walking Equipment Ankle Floats Comments 2 laps march, straight leg march Water Level Chest Level Walking Equipment Ankle Floats Comments 2 laps fwd,bck,side Water Level Chest Level Walking Equipment Ankle Floats Level of Assistance Verbal Cues Comments 2 laps Lower Extremity Exercises HS curls and kickbacks Details standing at wall w/min hand support Body Position Standing Water Level Chest Level Equipment Ankle Weight- 5.0# Reps/Duration 2x10 bilat Comments cues for no hip flexion and erect posture hip flex/ext, ab/ad Details standing at wall w/min hand support Body Position Standing Water Level Chest Level Equipment Ankle Floats Reps/Duration 2x15 bilat Comments controlled Lower Extremity Stretches quads Details and hip flex Equipment Large Noodle Reps/Duration 2x1:00 HC Details heel on second step Body Position Standing Water Level Chest Level Comments 2x 60sec bilat hamstring, ITB, add Details at wall Body Position Standing Water Level Chest Level Equipment hydrofit cuffs and 1 lg noodle Reps/Duration [id number] hold Upper Extremity Exercises bicep, tricep Body Position Standing Water Level Chest Level Equipment lg hydro bells Comments cues for core stab lat pull down, IR/ER Body Position Standing Water Level Chest Level Reps/Duration 12x bilat Comments cues for core stab hor ab/ad, flex/ext Body Position Standing Water Level Chest Level Equipment lg hand bells Reps/Duration 15 bilat x2 Spinal Exercises supine to stand Equipment Ankle Floats Reps/Duration 8 Mclean Activities Mclean Activities Bicycle,Cross Country,Running Duration 15 min PT-OP-T Assessment and Plan Start: 04/23/19 15:12 Freq: Status: Active Protocol: Document 03/28/20 09:00 SP (Rec: 03/28/20 10:27 SP [id number]) Physical Therapy Assessment Goals Gait and bal dysfunction Impairment Dynamic gait index (DGI) 1624 Short Term Goal (STG) Decrease fall risk as evidenced by improvement in DGI to at least 20 09/17/19: goal progress 02/25/20: DGI Razor Grinder Goal (LTG) No reported falls, DGI improved to 22/24 02/25/20: DGI 18 LTG Duration 04/03/20 Balance dysfunction Impairment Brown bal score 42/56 Short Term Goal (STG) Decrease fall risk as evidenced by improvement in Brown balance score to at least 48 09/17/19: goal progress 03/03/20: Brown Balance score 45 /56 STG Duration 09/13/19 Razor Grinder Goal (LTG) No reported falls, Brown balance score greater than 50 02/25/20: Brown balance score 45/ 56 LTG Duration 04/03/20 Recreational Activities 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 03/03/20: not currently doing bee-keeping due to difficulty, needs further work on body mechanics and balance LTG Duration 04/03/20 Perceived Disability Impairment Modified Oswestry Score 36% Razor Grinder Goal (LTG) Pt will grade overall perceived disability on the Modified Oswestry Questionnaire to 20% or less. 02/25/20: Oswestry scoere 45% during Covid, no PT, unable to do aquatic exercise LTG Duration 04/03/20 knowledge deficit [facility]cf Goal (LTG) Pt will report good tolerance and compliance to indep aquatic exercise program 09/17/19: has not recently done , will restart today 02/25/20: unable to do during Covid19 shut down; patient was instructed to call to reserve time to go to the pool for aquatic exercise per new protocol LTG Duration 04/03/20 weakness Impairment Core and LE weakness Razor Grinder Goal (LTG) Pt will have MMT of LE strength graded 4+/5 or greater 09/13/19: some goal progress 02/25/20: most significant deficits in hip abduction 4-/5 renato and hip ext 3-/5 renato LTG Duration 04/03/20 pain Impairment 6/10 pain in low back, LLE, right LE Short Term Goal (STG) Pt will report pain 4/10 or less with daily functional activities. 09/17/19: recent worsening. STG Duration 03/17/20 Razor Grinder Goal (LTG) Pt will report pain 2/10 or less with daily functional activities. 03/03/20: currently reporting pain level of 5/10 LTG Duration 04/03/20 Assessment Summary Assessment Pt educated on cuing for proper posture and slower pacing to allow for improved stability in LB and hip during gait. Pt required mod cuing for slowing pacing during gait activity, improved mirror for visual self corrections. Physical Therapy Plan Frequency and Duration Frequency of Treatment 2x/Week Duration of Treatment 5 weeks Plan of Care Start Date 02/25/20 Plan of Care End Date 04/03/20 Therapeutic Interventions Therapeutic Interventions Aquatic Therapy,Balance Training,Home Exercise Program ,Manual Therapy,Neuromuscular Re-education,Patient/Caregiver Education,Self-Care/Home Management,Therapeutic Activities,Therapeutic Exercises Modalities Cold Pack/Ice Massage,Electric Stimulation,Hot Packs Discharge Physical Therapy Discharge Reasons No Longer Attending PT Next Visit Focus/Plan Next Note Type Treatment Note Next Visit Plan Assess response to today's treatment, continue with inccreased manual work if helpful, review TrA muscle activation.
--- NOTE | 2020-04-10 08:52 | PT-OP ANOTE ---
DNS for today's 8:15 am PT appointment
--- NOTE | 2020-04-15 09:15 | PT.OPPOC ---
Physical, Occupational & Speech Therapy At [facility] Current Diagnoses Low back pain (04/15/20) Pain in right leg (04/15/20) Pain in left leg (04/15/20) Difficulty in walking, not elsewhere classified (04/15/20) Weakness (04/15/20) Visit Care Team Role Provider Type Julieth Frias Attending Provider Non-Staff Primary Care Provider Specialty: Medical Address: [address] [place] [address], [id number] Email: Plan Of Care PT-OP-T Assessment and Plan Start: 04/23/19 15:12 Freq: Status: Active Protocol: Document 04/15/20 08:13 OSMAR (Rec: 04/15/20 09:12 OSMAR [id number]) Physical Therapy Assessment Goals Gait and bal dysfunction Impairment Dynamic gait index (DGI) Short Term Goal (STG) Decrease fall risk as evidenced by improvement in DGI to at least 20 09/17/19: goal progress 02/25/20: DGI Care Home Goal (LTG) No reported falls, DGI improved to 02/25/20: DGI LTG Duration 04/22/20 Balance dysfunction Impairment Brown bal score 42/56 Short Term Goal (STG) Decrease fall risk as evidenced by improvement in Brown balance score to at least 48 09/17/19: goal progress 03/03/20: Brown Balance score 45 /56 STG Duration 09/13/19 Tier In Goal (LTG) No reported falls, Brown balance score greater than 50 02/25/20: Brown balance score 45/ 56 LTG Duration 04/22/20 Recreational Activities 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 03/03/20: not currently doing bee-keeping due to difficulty, needs further work on body mechanics and balance LTG Duration 04/22/20 Perceived Disability Impairment Modified Oswestry Score 36% Tier In Goal (LTG) Pt will grade overall perceived disability on the Modified Oswestry Questionnaire to 20% or less. 02/25/20: Oswestry scoere 45% during Covid, no PT, unable to do aquatic exercise LTG Duration 04/22/20 knowledge deficit Care Home Goal (LTG) Pt will report good tolerance and compliance to indep aquatic exercise program 09/17/19: has not recently done , will restart today 02/25/20: unable to do during Covid19 shut down; patient was instructed to call to reserve time to go to the pool for aquatic exercise per new protocol LTG Duration 04/22/20 weakness Impairment Core and LE weakness Tier In Goal (LTG) Pt will have MMT of LE strength graded 4+/5 or greater 09/13/19: some goal progress 02/25/20: most significant deficits in hip abduction 4-/5 renato and hip ext 3-/5 renato LTG Duration 04/22/20 pain Impairment 6/10 pain in low back, LLE, right LE Short Term Goal (STG) Pt will report pain 4/10 or less with daily functional activities. 09/17/19: recent worsening. STG Duration 03/17/20 Care Home Goal (LTG) Pt will report pain 2/10 or less with daily functional activities. 03/03/20: currently reporting pain level of 5/10 LTG Duration 04/22/20 Assessment Summary Assessment Patient cued for slow, controlled movement with less trunk sway, neutral posture. Progress appears to be plateaueing Discussed POC, recommended after today's treatment and 1 further session, patient be discharged to independent HEP and aquatic exercise program. Improved HEP compliance continues to be encouraged. Patient in agreement. Physical Therapy Plan Frequency and Duration Frequency of Treatment 2 visits Duration of Treatment 1 week Plan of Care Start Date 04/15/20 Plan of Care End Date 04/22/20 Therapeutic Interventions Therapeutic Interventions Home Exercise Program,Manual Therapy,Neuromuscular Re- education,Patient/Caregiver Education,Self-Care/Home Management,Soft Tissue Mobilization,Therapeutic Exercises Next Visit Focus/Plan Next Note Type Treatment Note Next Visit Plan reassess, assure safety and independence with HEP Plan of Care Dates Plan of Care Start Date 04/15/20 Plan of Care End Date 04/22/20 Electronically Signed by: Leora Palacio, PT 04/15/20 [id number] Please Sign and Return: I have reviewed this Plan of Care and certify that the skilled therapy services above are required to meet the patient?s needs. Physician Signature Date Printed Name and Credentials Clinical Instructor Signature Printed Name and Credentials
--- NOTE | 2020-04-15 09:15 | PT.OTN ---
Current Diagnoses Low back pain (04/15/20) Pain in right leg (04/15/20) Pain in left leg (04/15/20) Difficulty in walking, not elsewhere classified (04/15/20) Weakness (04/15/20) Physical Therapy Treatment Note PT-OP-A Visit Information Start: 04/23/19 15:12 Freq: Status: Active Protocol: Document 04/15/20 08:13 SAK (Rec: 04/15/20 09:12 SAK [id number]) Out-Patient Physical Therapy Visit Information Visit Information Visit Type Treatment Note Visit Start Time 08:00 Visit Number 33 Number of TRANSFER MACHINE OPERATOR Visits 0 PT-OP-B Current Condition Start: 04/23/19 15:12 Freq: Status: Active Protocol: Document 04/23/19 15:13 [facility] (Rec: 04/23/19 16:05 [facility] [id number]) Current Condition History of Current Condition Onset Date 2 yrs Current Complaints LBP History of Current Condition Reports persistent, function- limiting LBP with residual weakness in LE's. Previously having PT with best benefit from aquatic PT but had to discontinue due to medical issues. Underwent spinal decompression 2 years ago with no relief of pain. Has now had second opinion appointment and will be consulting further. Cortisone injection 4 wks ago helpful, has been trying to gradually increase his activity level to not overdo it. Not doing any exercises at home; stating I never sit down at home so am doing a lot of exercises. Found aquatic therapy helpful. Has a tendency to overdo. States he was told this am he has a problem with his liver, has no idea about plan for treatment. Pain is in lumbar spine and into LE's in past. Tingling both feet, reports tests for circulation show no problem. Some numbness bilateral feet. States no reflexes in LE's. Pain anterior left hip since helping a friend clean jacuzzi tub yesterday. Also had increase in pain a couple weeks ago with a day of extensive walking. Prior Treatments and Tests Cortisone injection 4 wks ago, no pain since shot, pain medicaitons, aquatic PT. Future Testing and Treatments Planned Sees orthopedist at [place] in 1 wk to discuss POC. Treatment Goals Patient/Caregiver Goals Strengthen his muscles and be able to resume prior functional level. Requests a couple more PT visits in the pool since he had to discontinue aquatic PT early. 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 PT-OP-D Balance Start: 04/23/19 15:12 Freq: Status: Active Protocol: Document 07/30/19 14:26 SAK (Rec: 07/30/19 16:10 [facility] [id number]) Balance Tests Brown Balance Test Brown Balance Test Score 42 PT-OP-E Functional Tests Start: 04/23/19 15:12 Freq: Status: Active Protocol: Document 07/30/19 14:26 [facility] (Rec: 07/30/19 16:10 [facility] [id number]) Functional Tests Dynamic Gait Index (DGI) Score 16 PT-OP-J Posture/Palpation/Skin Start: 04/23/19 15:12 Freq: Status: Active Protocol: Document 04/23/19 15:13 [facility] (Rec: 04/24/19 14:48 [facility] [id number]) Posture Evaluation Position Standing Head/C-Spine Posture Forward Head T-Spine Posture Increased Kyphosis L-Spine Posture Increased Lordosis Shoulder Posture (L) Rounded,(R) Rounded,(L) Forward,(R) Forward Pelvis Posture Anteriorly Tilted Hip Posture (L) Externally Rotated,(R) Externally Rotated Palpation Assessment Location anterior left hip Palpation Findings Soft Tissue Tightness, Tenderness piriformis Palpation Findings Soft Tissue Tightness PT-OP-K Range of Motion Start: 04/23/19 15:12 Freq: Status: Active Protocol: Document 07/30/19 14:26 SAK (Rec: 07/30/19 16:10 [facility] [id number]) Lumbar Spine Range of Motion Lumbar Spine Active Flexion 40 Extension 15 Lateral Flexion Left 35 Lateral Flexion Right 35 ROM Limitations Soft Tissue Tightness Hip Goniometric Range of Motion Hip Left Straight Leg Raise 55 Right Straight Leg Raise 45 Hip ROM Limitations Hip ROM Limitations Soft Tissue Tightness,Pain Knee Goniometric Range of Motion Knee Left Knee ROM WFL Yes Right Knee ROM WFL Yes Ankle and Foot Goniometric Range of Motion Ankle and Foot renato Dorsiflexion with Knee Flexed 5 Dorsiflexion with Knee Extended 0 Plantarflexion 45 PT-OP-M Strength Start: 04/23/19 15:12 Freq: Status: Active Protocol: Document 07/30/19 14:26 [facility] (Rec: 07/30/19 16:10 [facility] [id number]) Trunk Strength Trunk Manual Muscle Testing Flexion 4- Good- Extension 4- Good- Hip Strength Hip Manual Muscle Testing Left Flexion (L2) 4 Good Extension (S1) 3- Fair- Abduction 3+ Fair+ External Rotation 4- Good- Internal Rotation 4 Good Right Flexion (L2) 4 Good Extension (S1) 3- Fair- Abduction 4- Good- External Rotation 4- Good- Internal Rotation 4 Good Knee Strength Knee Manual Muscle Testing Left Flexion (S2) 4+ Good+ Extension (L3) 4+ Good+ Right Flexion (S2) 4+ Good+ Extension (L3) 4- Good- Ankle/Foot Strength Ankle and Foot Manual Muscle Testing Left Dorsiflexion (L4) 4- Good- Plantarflexion (S1) 4 Good Right Dorsiflexion (L4) 4+ Good+ Plantarflexion (S1) 4 Good Toe Strength Toe Manual Muscle Testing Left Great Toe Extension 4- Good- Right Great Toe Flexion 4 Good PT-OP-Q Treatments Start: 04/23/19 15:12 Freq: Status: Active Protocol: Document 04/15/20 08:13 [facility] (Rec: 04/15/20 09:12 [facility] [id number]) Cardio Equipment Recumbent Stepper (Sci-Fit) Duration (Minutes) 15 Resistance 7.5 Seat Position 17 Other 2.9miles, 42-44 RPMs Gym Equipment Sport Cord forward Exercise Details emphasis on core stab, gluteal activation Cord/Resistance red Reps/Duration 5 Comments mirror for visual feedback Therapeutic Exercises Supine Exercises adductor stretch w /strap Side bilateral Reps/Minutes 30 IT band Supine Exercise Name HEP review Side bilateral Reps/Minutes 2x 30 Comments strap HS stretch Supine Exercise Name review HEP- no jerking movements Side bilateral Equipment Used strap and manual assist Reps/Minutes 30x2 Comments cued knee extension and slow elevate before knee bends hold 30-60! SKTC Supine Exercise Name review HEP- performs if pain in back Side bilateral Reps/Minutes 30x2 Comments self Standing Exercises sidestepping core engagement Resistance L3 TB Reps/Minutes 10x each direction 1 Standing Exercise Name Calf Stretch Equipment Used JOHN Reps/Minutes 30 x 2 and rocking shoulder extension Resistance L3 TB Reps/Minutes 10x5 Comments WBOS, scap depression stab during ext row Resistance L4 TB Reps/Minutes 10x5 Comments stagger WBOS stance, soft knee Gait Training Gait Activity level surface Description f/ b/ side stepping cued slow pacing Treatment Focus multiple laps Comments mirror for visual feedback to decrease limp and lateral sway . Manual Therapy Treatment Soft Tissue Mobilization ITB Body Location LLE ITB Mobilization Type Instrument Assisted Intensity/Depth Moderate Body Position Sidelying Comments Knees bent, pillow between knees Neuro Re-Education Treatment Balance Activities SLS Reps/Duration 3x ea Comments mirror for visual feedback, one-hand support 3x tandem stand and tandem gait Reps/Duration 4 min Comments CG to min assist PT-OP-R Modalities Start: 04/23/19 15:12 Freq: Status: Active Protocol: Document 03/25/20 11:15 SAK (Rec: 03/25/20 12:00 SAK [id number]) Hot Pack/Cold Pack Treatment L hip Location L Piriformis, ITB, glut med Patient Position Sidelying Treatment Duration (minutes) 15 Patient Tolerance Good PT-OP-S Aquatic Treatment Start: 04/23/19 15:12 Freq: Status: Active Protocol: Document 10/05/19 10:15 LJ (Rec: 10/05/19 15:35 LJ [id number]) Aquatics Treatment Pool Entry/Exit Pool Entry/Exit Method Stairs Water Walking quick reverses fwd/bck Water Level Chest Level Walking Equipment Resistance Fins Level of Assistance Verbal Cues lunge walking Water Level Chest Level Walking Equipment Ankle Floats Comments 2 laps march, straight leg march Water Level Chest Level Walking Equipment Ankle Floats Comments 2 laps fwd,bck,side Water Level Chest Level Walking Equipment Ankle Floats Level of Assistance Verbal Cues Comments 2 laps Lower Extremity Exercises HS curls and kickbacks Details standing at wall w/min hand support Body Position Standing Water Level Chest Level Equipment Ankle Weight- 5.0# Reps/Duration 2x10 bilat Comments cues for no hip flexion and erect posture hip flex/ext, ab/ad Details standing at wall w/min hand support Body Position Standing Water Level Chest Level Equipment Ankle Floats Reps/Duration 2x15 bilat Comments controlled Lower Extremity Stretches quads Details and hip flex Equipment Large Noodle Reps/Duration 2x1:00 HC Details heel on second step Body Position Standing Water Level Chest Level Comments 2x 60sec bilat hamstring, ITB, add Details at wall Body Position Standing Water Level Chest Level Equipment hydrofit cuffs and 1 lg noodle Reps/Duration [id number] hold Upper Extremity Exercises bicep, tricep Body Position Standing Water Level Chest Level Equipment lg hydro bells Comments cues for core stab lat pull down, IR/ER Body Position Standing Water Level Chest Level Reps/Duration 12x bilat Comments cues for core stab hor ab/ad, flex/ext Body Position Standing Water Level Chest Level Equipment lg hand bells Reps/Duration 15 bilat x2 Spinal Exercises supine to stand Equipment Ankle Floats Reps/Duration 8 [place] Activities [place] Activities Bicycle,Cross Country,Running Duration 15 min PT-OP-T Assessment and Plan Start: 04/23/19 15:12 Freq: Status: Active Protocol: Document 04/15/20 08:13 OSMAR (Rec: 04/15/20 09:12 [facility] [id number]) Physical Therapy Assessment Goals Gait and bal dysfunction Impairment Dynamic gait index (DGI) 16 Short Term Goal (STG) Decrease fall risk as evidenced by improvement in DGI to at least 20 09/17/19: goal progress 02/25/20: DGI [facility] Goal (LTG) No reported falls, DGI improved to 02/25/20: DGI LTG Duration 04/22/20 Balance dysfunction Impairment Brown bal score 42/56 Short Term Goal (STG) Decrease fall risk as evidenced by improvement in Brown balance score to at least 48 09/17/19: goal progress 03/03/20: Brown Balance score 45 /56 STG Duration 09/13/19 Commercial Litigation Paralegal Goal (LTG) No reported falls, Brown balance score greater than 50 02/25/20: Brown balance score 45/ 56 LTG Duration 04/22/20 Recreational Activities 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 03/03/20: not currently doing bee-keeping due to difficulty, needs further work on body mechanics and balance LTG Duration 04/22/20 Perceived Disability Impairment Modified Oswestry Score 36% Commercial Litigation Paralegal Goal (LTG) Pt will grade overall perceived disability on the Modified Oswestry Questionnaire to 20% or less. 02/25/20: Oswestry scoere 45% during Covid, no PT, unable to do aquatic exercise LTG Duration 04/22/20 knowledge deficit Commercial Litigation Paralegal Goal (LTG) Pt will report good tolerance and compliance to [facility] aquatic exercise program 09/17/19: has not recently done , will restart today 02/25/20: unable to do during Covid19 shut down; patient was instructed to call to reserve time to go to the pool for aquatic exercise per new protocol LTG Duration 04/22/20 weakness Impairment Core and LE weakness Commercial Litigation Paralegal Goal (LTG) Pt will have MMT of LE strength graded 4+/5 or greater 09/13/19: some goal progress 02/25/20: most significant deficits in hip abduction 4-/5 renato and hip ext 3-/5 renato LTG Duration 04/22/20 pain Impairment 6/10 pain in low back, LLE, right LE Short Term Goal (STG) Pt will report pain 4/10 or less with daily functional activities. 09/17/19: recent worsening. STG Duration 03/17/20 [facility] Goal (LTG) Pt will report pain 2/10 or less with daily functional activities. 03/03/20: currently reporting pain level of 5/10 LTG Duration 04/22/20 Assessment Summary Assessment Patient cued for slow, controlled movement with less trunk sway, neutral posture. Progress appears to be plateaueing Discussed POC, recommended after today's treatment and 1 further session, patient be discharged to independent HEP and aquatic exercise program. Improved HEP compliance continues to be encouraged. Patient in agreement. Physical Therapy Plan Frequency and Duration Frequency of Treatment 2 visits Duration of Treatment 1 week Plan of Care Start Date 04/15/20 Plan of Care End Date 04/22/20 Therapeutic Interventions Therapeutic Interventions Home Exercise Program,Manual Therapy,Neuromuscular Re- education,Patient/Caregiver Education,Self-Care/Home Management,Soft Tissue Mobilization,Therapeutic Exercises Next Visit Focus/Plan Next Note Type Treatment Note Next Visit Plan reassess, assure safety and independence with HEP
--- NOTE | 2020-04-17 15:43 | PT.OTN ---
Current Diagnoses Low back pain (04/17/20) Pain in right leg (04/17/20) Pain in left leg (04/17/20) Difficulty in walking, not elsewhere classified (04/17/20) Weakness (04/17/20) Physical Therapy Treatment Note PT-OP-A Visit Information Start: 04/23/19 15:12 Freq: Status: Active Protocol: Document 04/17/20 13:52 SAK (Rec: 04/17/20 14:[address] 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 (Rec: 04/23/19 16:[address] [facility] [id number]) Current Condition History of Current Condition Onset Date 2 yrs Current Complaints LBP History of Current Condition Reports persistent, function- limiting LBP with residual weakness in LE's. Previously having PT with best benefit from aquatic PT but had to discontinue due to medical issues. Underwent spinal decompression 2 years ago with no relief of pain. Has now had second opinion appointment and will be consulting further. Cortisone injection 4 wks ago helpful, has been trying to gradually increase his activity level to not overdo it. Not doing any exercises at home; stating I never sit down at home so am doing a lot of exercises. Found aquatic therapy helpful. Has a tendency to overdo. States he was told this am he has a problem with his liver, has no idea about plan for treatment. Pain is in lumbar spine and into LE's in past. Tingling both feet, reports tests for circulation show no problem. Some numbness bilateral feet. States no reflexes in LE's. Pain anterior left hip since helping a friend clean jacuzzi tub yesterday. Also had increase in pain a couple weeks ago with a day of extensive walking. Prior Treatments and Tests Cortisone injection 4 wks ago, no pain since shot, pain medicaitons, aquatic PT. Future Testing and Treatments Planned Sees orthopedist at [place] in 1 wk to discuss POC. Treatment Goals Patient/Caregiver Goals Strengthen his muscles and be able to resume prior functional level. Requests a couple more PT visits in the pool since he had to discontinue aquatic PT early. 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 (Rec: 04/17/20 14:[address] [facility] [id number]) OP-PT Subjective Patient Comments Patient Comments No new c/o. Agreeable to today being last PT session. Patient agreeable to review of use of exercise machines that he can use at fitness center. PT-OP-D Balance Start: 04/23/19 15:12 Freq: Status: Active Protocol: Document 07/30/19 14:[address] [facility] (Rec: 07/30/19 16:[address] [facility] [id number]) Balance Tests Brown Balance Test Brown Balance Test Score 42 PT-OP-E Functional Tests Start: 04/23/19 15:12 Freq: Status: Active Protocol: Document 07/30/19 14:[address] [facility] (Rec: 07/30/19 16:[address] [facility] [id number]) Functional Tests Dynamic Gait Index (DGI) Score 16 PT-OP-J Posture/Palpation/Skin Start: 04/23/19 15:12 Freq: Status: Active Protocol: Document 04/23/19 15:[address] [facility] (Rec: 04/24/19 14:[address] [facility] [id number]) Posture Evaluation Position Standing Head/C-Spine Posture Forward Head T-Spine Posture Increased Kyphosis L-Spine Posture Increased Lordosis Shoulder Posture (L) Rounded,(R) Rounded,(L) Forward,(R) Forward Pelvis Posture Anteriorly Tilted Hip Posture (L) Externally Rotated,(R) Externally Rotated Palpation Assessment Location anterior left hip Palpation Findings Soft Tissue Tightness, Tenderness piriformis Palpation Findings Soft Tissue Tightness PT-OP-K Range of Motion Start: 04/23/19 15:12 Freq: Status: Active Protocol: Document 07/30/19 14:[address] [facility] (Rec: 07/30/19 16:[address] [facility] [id number]) Lumbar Spine Range of Motion Lumbar Spine Active Flexion 40 Extension 15 Lateral Flexion Left 35 Lateral Flexion Right 35 ROM Limitations Soft Tissue Tightness Hip Goniometric Range of Motion Hip Left Straight Leg Raise 55 Right Straight Leg Raise 45 Hip ROM Limitations Hip ROM Limitations Soft Tissue Tightness,Pain Knee Goniometric Range of Motion Knee Left Knee ROM WFL Yes Right Knee ROM WFL Yes Ankle and Foot Goniometric Range of Motion Ankle and Foot renato Dorsiflexion with Knee Flexed 5 Dorsiflexion with Knee Extended 0 Plantarflexion 45 PT-OP-M Strength Start: 04/23/19 15:12 Freq: Status: Active Protocol: Document 07/30/19 14:[address] [facility] (Rec: 07/30/19 16:[address] [facility] [id number]) Trunk Strength Trunk Manual Muscle Testing Flexion 4- Good- Extension 4- Good- Hip Strength Hip Manual Muscle Testing Left Flexion (L2) 4 Good Extension (S1) 3- Fair- Abduction 3+ Fair+ External Rotation 4- Good- Internal Rotation 4 Good Right Flexion (L2) 4 Good Extension (S1) 3- Fair- Abduction 4- Good- External Rotation 4- Good- Internal Rotation 4 Good Knee Strength Knee Manual Muscle Testing Left Flexion (S2) 4+ Good+ Extension (L3) 4+ Good+ Right Flexion (S2) 4+ Good+ Extension (L3) 4- Good- Ankle/Foot Strength Ankle and Foot Manual Muscle Testing Left Dorsiflexion (L4) 4- Good- Plantarflexion (S1) 4 Good Right Dorsiflexion (L4) 4+ Good+ Plantarflexion (S1) 4 Good Toe Strength Toe Manual Muscle Testing Left Great Toe Extension 4- Good- Right Great Toe Flexion 4 Good PT-OP-Q Treatments Start: 04/23/19 15:12 Freq: Status: Active Protocol: Document 04/17/20 13:[address] [facility] (Rec: 04/17/20 14:[address] [facility] [id number]) Cardio Equipment Recumbent Stepper (Sci-Fit) Duration (Minutes) 20 Resistance 7.5 Seat Position 17 Other 3.75 miles, 42-44 RPMs Gym Equipment Cable Column (Body Solid) row Resistance 60 Reps/Time 10x2 lat pull Resistance 90 Reps/Time 10x2 knee extension Details 80 Resistance 10x2 hamstring curl Resistance 100 Reps/Time 10x2 hip ab/ad Resistance #70 abd/ #100add Reps/Time 2x20 Shuttle Recovery Unilateral Squats Details cued slow eccentric control Resistance 87# x10, 100# x10 Shuttle Recovery Platform Stable Reps/Time cued midfoot/heel press and glut facilitation Bilateral Squats Details cued slow eccentric control Resistance 150# Shuttle Recovery Platform Stable Reps/Time 15x2 Therapeutic Exercises Supine Exercises HS stretch Supine Exercise Name review HEP- no jerking movements Side bilateral Equipment Used strap and manual assist Reps/Minutes 30x2 Comments cued knee extension and slow elevate before knee bends hold 30-60! SKTC Supine Exercise Name review HEP- performs if pain in back Side bilateral Reps/Minutes 30x2 Comments self Standing Exercises 1 Standing Exercise Name Calf Stretch Equipment Used JOHN Reps/Minutes 30 x 2 and rocking PT-OP-R Modalities Start: 04/23/19 15:12 Freq: Status: Active Protocol: Document 03/25/20 11:15 SAK (Rec: 03/25/20 12:00 SAK [id number]) Hot Pack/Cold Pack Treatment L hip Location L Piriformis, ITB, glut med Patient Position Sidelying Treatment Duration (minutes) 15 Patient Tolerance Good PT-OP-S Aquatic Treatment Start: 04/23/19 15:12 Freq: Status: Active Protocol: Document 10/05/19 10:15 LJ (Rec: 10/05/19 15:35 LJ [id number]) Aquatics Treatment Pool Entry/Exit Pool Entry/Exit Method Stairs Water Walking quick reverses fwd/bck Water Level Chest Level Walking Equipment Resistance Fins Level of Assistance Verbal Cues lunge walking Water Level Chest Level Walking Equipment Ankle Floats Comments 2 laps march, straight leg september Water Level Chest Level Walking Equipment Ankle Floats Comments 2 laps fwd,bck,side Water Level Chest Level Walking Equipment Ankle Floats Level of Assistance Verbal Cues Comments 2 laps Lower Extremity Exercises HS curls and kickbacks Details standing at wall w/min hand support Body Position Standing Water Level Chest Level Equipment Ankle Weight- 5.0# Reps/Duration 2x10 bilat Comments cues for no hip flexion and erect posture hip flex/ext, ab/ad Details standing at wall w/min hand support Body Position Standing Water Level Chest Level Equipment Ankle Floats Reps/Duration 2x15 bilat Comments controlled Lower Extremity Stretches quads Details and hip flex Equipment Large Noodle Reps/Duration 2x1:00 HC Details heel on second step Body Position Standing Water Level Chest Level Comments 2x 60sec bilat hamstring, ITB, add Details at wall Body Position Standing Water Level Chest Level Equipment hydrofit cuffs and 1 lg noodle Reps/Duration [id number] hold Upper Extremity Exercises bicep, tricep Body Position Standing Water Level Chest Level Equipment lg hydro bells Comments cues for core stab lat pull down, IR/ER Body Position Standing Water Level Chest Level Reps/Duration 12x bilat Comments cues for core stab hor ab/ad, flex/ext Body Position Standing Water Level Chest Level Equipment lg hand bells Reps/Duration 15 bilat x2 Spinal Exercises supine to stand Equipment Ankle Floats Reps/Duration 8 [place] Activities Bicycle,Cross Country,Running Duration 15 min PT-OP-T Assessment and Plan Start: 04/23/19 15:12 Freq: Status: Active Protocol: Document 04/17/20 13:52 OSMAR (Rec: 04/17/20 14:29 [facility] [id number]) Physical Therapy Plan Discharge Physical Therapy Discharge Reasons No Longer Attending PT Discharge Comments Progress plateaued, independent with HEP
--- NOTE | 2020-04-17 15:44 | PT.OPDS ---
Current Diagnoses Low back pain (04/17/20) Pain in right leg (04/17/20) Pain in left leg (04/17/20) Difficulty in walking, not elsewhere classified (04/17/20) Weakness (04/17/20) Visit Care Team Role Provider Type Julieth Frias Attending Provider Non-Staff Primary Care Provider Specialty: Medical Address: [address] [place] [address], [place], [address] Email: Visit Number Visit Number [id number] Discharge Summary PT-OP-B Current Condition Start: 04/23/19 15:12 Freq: Status: Active Protocol: Document 04/23/19 15:13 [facility] (Rec: 04/23/19 16:05 [facility] [id number]) Current Condition History of Current Condition Onset Date 2 yrs Current Complaints LBP History of Current Condition Reports persistent, function- limiting LBP with residual weakness in LE's. Previously having PT with best benefit from aquatic PT but had to discontinue due to medical issues. Underwent spinal decompression 2 years ago with no relief of pain. Has now had second opinion appointment and will be consulting further. Cortisone injection 4 wks ago helpful, has been trying to gradually increase his activity level to not overdo it. Not doing any exercises at home; stating I never sit down at home so am doing a lot of exercises. Found aquatic therapy helpful. Has a tendency to overdo. States he was told this am he has a problem with his liver, has no idea about plan for treatment. Pain is in lumbar spine and into LE's in past. Tingling both feet, reports tests for circulation show no problem. Some numbness bilateral feet. States no reflexes in LE's. Pain anterior left hip since helping a friend clean [employer] tub yesterday. Also had increase in pain a couple weeks ago with a day of extensive walking. Prior Treatments and Tests Cortisone injection 4 wks ago, no pain since shot, pain medicaitons, aquatic PT. Future Testing and Treatments Planned Sees orthopedist at [place] in 1 wk to discuss POC. Treatment Goals Patient/Caregiver Goals Strengthen his muscles and be able to resume prior functional level. Requests a couple more PT visits in the pool since he had to discontinue aquatic PT early. 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 Agreeable to today being last PT session. Patient agreeable to review of use of exercise machines that he can use at [employer] [facility]. PT-OP-D Balance Start: 04/23/19 15:12 Freq: Status: Active Protocol: Document 07/30/19 14:26 [facility] (Rec: 07/30/19 16:10 [facility] [id number]) Balance Tests Brown Balance Test Brown Balance Test Score 42 PT-OP-E Functional Tests Start: 04/23/19 15:12 Freq: Status: Active Protocol: Document 07/30/19 14:26 [facility] (Rec: 07/30/19 16:10 [facility] [id number]) Functional Tests Dynamic Gait Index (DGI) Score 16 PT-OP-J Posture/Palpation/Skin Start: 04/23/19 15:12 Freq: Status: Active Protocol: Document 04/23/19 15:13 [facility] (Rec: 04/24/19 14:48 [facility] [id number]) Posture Evaluation Position Standing Head/C-Spine Posture Forward Head T-Spine Posture Increased Kyphosis L-Spine Posture Increased Lordosis Shoulder Posture (L) Rounded,(R) Rounded,(L) Forward,(R) Forward Pelvis Posture Anteriorly Tilted Hip Posture (L) Externally Rotated,(R) Externally Rotated Palpation Assessment Location anterior left hip Palpation Findings Soft Tissue Tightness, Tenderness piriformis Palpation Findings Soft Tissue Tightness PT-OP-K Range of Motion Start: 04/23/19 15:12 Freq: Status: Active Protocol: Document 07/30/19 14:26 [facility] (Rec: 07/30/19 16:10 [facility] [id number]) Lumbar Spine Range of Motion Lumbar Spine Active Flexion 40 Extension 15 Lateral Flexion Left 35 Lateral Flexion Right 35 ROM Limitations Soft Tissue Tightness Hip Goniometric Range of Motion Hip Left Straight Leg Raise 55 Right Straight Leg Raise 45 Hip ROM Limitations Hip ROM Limitations Soft Tissue Tightness,Pain Knee Goniometric Range of Motion Knee Left Knee ROM WFL Yes Right Knee ROM WFL Yes Ankle and Foot Goniometric Range of Motion Ankle and Foot renato Dorsiflexion with Knee Flexed 5 Dorsiflexion with Knee Extended 0 Plantarflexion 45 PT-OP-M Strength Start: 04/23/19 15:12 Freq: Status: Active Protocol: Document 07/30/19 14:26 [facility] (Rec: 07/30/19 16:10 [facility] [id number]) Trunk Strength Trunk Manual Muscle Testing Flexion 4- Good- Extension 4- Good- Hip Strength Hip Manual Muscle Testing Left Flexion (L2) 4 Good Extension (S1) 3- Fair- Abduction 3+ Fair+ External Rotation 4- Good- Internal Rotation 4 Good Right Flexion (L2) 4 Good Extension (S1) 3- Fair- Abduction 4- Good- External Rotation 4- Good- Internal Rotation 4 Good Knee Strength Knee Manual Muscle Testing Left Flexion (S2) 4+ Good+ Extension (L3) 4+ Good+ Right Flexion (S2) 4+ Good+ Extension (L3) 4- Good- Ankle/Foot Strength Ankle and Foot Manual Muscle Testing Left Dorsiflexion (L4) 4- Good- Plantarflexion (S1) 4 Good Right Dorsiflexion (L4) 4+ Good+ Plantarflexion (S1) 4 Good Toe Strength Toe Manual Muscle Testing Left Great Toe Extension 4- Good- Right Great Toe Flexion 4 Good PT-OP-T Assessment and Plan Start: 04/23/19 15:12 Freq: Status: Active Protocol: Document 04/17/20 13:52 [facility] (Rec: 04/17/20 14:29 [facility] [id number]) Physical Therapy Plan Discharge Physical Therapy Discharge Reasons No Longer Attending PT Discharge Comments Progress plateaued, independent with HEP
== END 2020-04-25 09:36 ==
LOC: PHYS 13:45
DX: M54.5 Low back pain (principal); R26.2 Difficulty in walking, not elsewhere classified; R53.1 Weakness; M79.605 Pain in left leg; M79.604 Pain in right leg
CPT/HCPCS: 97010; 97110; 97112; 97113; 97116; 97140; 97162; 97164; 97530; 97535

== ENCOUNTER → 2021-07-20 14:09 | Outpatient (CLI) | payer OTHER, SELFPAY ==
--- NOTE | 2021-07-20 14:09 | DI.MRI.S_ITS ---
PROCEDURE: MR LUMBAR SPINE WO CON INDICATIONS: Spinal stenosis, lumbar region with neurogenic cla TECHNIQUE: Noncontrast sagittal T1 spin echo and T2 fast echo, sagittal STIR, axial T1 and T2 fast spin echo through the lumbar spine. In cases with scoliosis, additional coronal T2 fast spin echo may be performed. COMPARISON: [facility], MR, MR LUMBAR SPINE WO CON, 01/01/2016, 8:29. [facility], CR, XR LUMBAR SPINE 2 OR 3 VIEWS, 04/02/2019, 13:50. [facility], MR, MR LUMBAR SPINE WO CON, 03/02/2019, 7:24. FINDINGS: Image quality: Excellent. Alignment and Curvature: There is mild L3-L4 anterolisthesis. There is trace L2-L3 retrolisthesis. Bones: Postsurgical changes compatible with L3 and L4 laminectomies. Modic type 2 reactive endplate changes noted adjacent to the L2-L3, L3-L4 and L5-S1 discs. No acute vertebral body compression fractures. Spinal Cord: Conus medullaris terminates at the L1 level. Visualized cord demonstrates normal signal and size. Paraspinous Soft Tissues: No paravertebral masses. T12-L1: Loss of disc signal. Mild, diffuse disc bulge. Mild bilateral facet hypertrophy. Mild narrowing of the central canal. No neural foraminal narrowing. No neural compression. L1-L2: Loss of disc signal. Mild, diffuse disc bulge. Mild bilateral facet hypertrophy. Mild narrowing of the central canal. [id number] right neural foraminal narrowing. No neural compression. L2-L3: Loss of disc signal. Mild to moderate diffuse disc bulge. [id number] bilateral facet hypertrophy. Mild to moderate narrowing of the central canal. Moderate bilateral neural foraminal narrowing. No neural compression. L3-L4: Loss of disc signal and mild loss of disc height. Mild to moderate diffuse disc bulge. Moderate bilateral facet hypertrophy. Mild narrowing of the central canal. Moderate right and moderate to severe left neural foraminal narrowing with slight compression of the exiting left L3 nerve root. L4-L5: Loss of disc signal. Mild, diffuse disc bulge. Moderate bilateral facet hypertrophy. Mild narrowing of the central canal. Moderate right and mild left neural foraminal narrowing. No neural compression. L5-S1: Loss of disc signal and height. Mild, diffuse disc bulge. Mild bilateral facet hypertrophy. Mild to moderate narrowing of the central canal. Severe bilateral neural foraminal narrowing with compression of the exiting L5 nerve roots. IMPRESSION: 1. Status post L3 and L4 laminectomies. 2. Multilevel degenerative disc disease. 3. Multilevel facet arthropathy. 4. No severe central canal narrowing. 5. Severe bilateral L5-S1 neural foraminal narrowing with compression of the exiting bilateral L5 nerve roots. Moderate to severe left L3-L4 neural foraminal narrowing with slight compression of the exiting left L3 nerve root. Dictated by: Karmen Salazar MD, PhD on 07/20/2021 at 15:35 Approved by: Karmen Salazar MD, PhD on 07/20/2021 at 15:48
== END ==
PROVIDERS: Referring Provider Physical Medicine & Rehabilitation; Visit Provider Physical Medicine & Rehabilitation
DX: M48.062 Spinal stenosis, lumbar region with neurogenic claudication (principal); M48.07 Spinal stenosis, lumbosacral region; M51.36 Other intervertebral disc degeneration, lumbar region; M51.37 Other intervertebral disc degeneration, lumbosacral region; M47.816 Spondylosis without myelopathy or radiculopathy, lumbar region; M47.817 Spondylosis without myelopathy or radiculopathy, lumbosacral region
CPT/HCPCS: 72148

== ENCOUNTER 2021-11-04 12:05 | Emergency (ER) | payer OTHER, SELFPAY ==
[2021-11-04 12:20] VITALS: BP 164/82; PULSE 90; RESP 22; TEMP 36.2; O2SAT 97; BMI 39.2
--- NOTE | 2021-11-04 12:27 | DI.RAD.S_ITS ---
PROCEDURE: XR KNEE LT 3V INDICATIONS: repeat, injury 1 mo ago, suspect ligamental injury, + effusion TECHNIQUE: 3 views of the knee were acquired. COMPARISON: [facility], CR, XR KNEE 3 VIEWS LEFT, 10/17/2021, 8:57. [facility], CR, KNEE 3V RIGHT, 10/27/2016, 20:53. FINDINGS: Bones: Moderate to severe joint space narrowing at the medial compartment. There is moderate to severe joint space narrowing at the lateral patellar compartment. There is tricompartmental osteophytosis. No fractures or dislocations. No suspicious bony lesions. Soft tissues: No significant joint effusion. No suspicious soft tissue calcifications. Vascular calcifications. IMPRESSION: No fracture. 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 Dictated by: Dain Beaver M.D. on 11/04/2021 at 12:58 Approved by: Dain Beaver M.D. on 11/04/2021 at 13:01
--- NOTE | 2021-11-04 12:29 | ED_ITS ---
HPI - Extremity Injury (Lower) <Vania Ngo, [facility] - Last Filed: 11/04/21 14:18> General Chief Complaint: Extremity Injury, Lower Stated Complaint: Left knee extreme pain, [facility] Doctor referral Time Seen by Provider: 11/04/21 12:15 Source: patient Mode of arrival: Ambulatory History of Present Illness HPI Narrative: 71-year-old male with history of patellar tendon rupture and right patella fracture, osteoarthritis who presents to emergency department complaining of ongoing left knee pain since 10/14/21 when he spontaneous felt and heard a loud pop in the middle of left knee, states his whole knee is painful and has been on stable since. He was seen at the urgent care on 10/17/2021 and was x-rayed, is x-ray showed osteoarthritis, no fractures were noted. Has been wearing a elastic knee brace and he has [facility] insurance who has postponed his visits to Orthopedics, he has an upcoming appointment November 17 but presents to the emergency department today with worsening left knee pain, instability, now with swelling above his patella, and sharp occasional pain. Patient denies any sensation changes distally, he denies any weakness in his lower extremity, he denies any ankle swelling, hip pain, or foot pain. He denies any trauma, states he was standing when the spontaneous loud pop happened. And he has felt pain with ambulation, standing from sitting position, and flexion of his knee. Patient is not on any anticoagulants, has a history of BPH, hypertension, takes aspirin 81 mg daily. Patient states he cannot wait to have this evaluated and is not dealing with the pain very well. Related Data Home Medications Medication Instructions Recorded Confirmed CA PANTOTHENATE/FOLIC ACID/VIT 1 tab PO QDAY #0 03/07/13 06/11/19 (MULTIVITAMIN) [TRANSDERMAL COMPOUND] 1 - 2 gm TOPICAL BID #0 03/07/13 06/11/19 aspirin 81 mg tablet,delayed 81 mg PO QDAY #0 03/07/13 06/11/19 release atorvastatin 10 mg tablet (Lipitor) 10 mg PO HS #0 04/11/17 06/11/19 chlorthalidone 25 mg tablet 10 mg PO [facility] #0 04/11/17 06/11/19 duloxetine 60 mg capsule,delayed 60 mg PO [facility] #0 04/11/17 release (Cymbalta) finasteride 5 mg tablet 5 mg PO [facility] #0 04/11/17 06/11/19 peg [id number] 1 1 drp OU BID #0 04/11/17 06/11/19 %-0.2 %-0.2 % eye drops (Visine Tears) tamsulosin 0.4 mg capsule (Flomax) 0.4 mg PO BID #0 04/11/17 06/11/19 Previous Rx's Medication Instructions Recorded diclofenac sodium 1 % topical gel 2 g TOPICAL QID PRN #100 g 11/04/21 (Voltaren Arthritis Pain) hydrocodone 5 mg-acetaminophen 325 1 tab PO Q6H PRN #14 tab 11/04/21 mg tablet tramadol 50 mg tablet 50 mg PO DAILY PRN #14 tab 11/04/21 Allergies Allergy/AdvReac Type Severity Reaction Status Date / Time No Known Allergies Allergy Uncoded 06/11/19 14:02 Review of Systems <AGUILA Reid - Last Filed: 11/04/21 14:18> Review of Systems Narrative: General: denies fever, chills Head/Neck: denies headache, neck pain Eyes: denies visual changes, eye pain Cardio: denies chest pain, palpitations Respiratory: denies shortness of breath, cough GI: denies abdominal pain, nausea, vomiting, or diarrhea : denies dysuria, hematuria MSK: Endorses left knee pain, swelling, instability, denies any muscle weakness or sensation changes Skin: denies rash, itching Neuro: denies numbness, tingling Patient History <AGUILA Reid - Last Filed: 11/04/21 14:18> Social History Smoking Status: Never smoker Smoking Status: Never smoker Substance Use Type: does not use Exam <AGUILA Reid - Last Filed: 11/04/21 14:18> Narrative Exam Narrative: Independently reviewed vitals signs and nursing notes. General: cooperative, comfortable, in no acute distress, well developed and well groomed Head: atraumatic, symmetrical facial expressions Neck: supple, atraumatic, without lymphadenopathy. Eyes: pupils equal round and reactive, EOMI, conjunctiva normal Nose: nares patent, no rhinorrhea Mouth/Throat: uvula midline, moist mucus membranes Cardiovascular: regular rate and rhythm, no peripheral edema, warm extremities Respiratory: normal effort, able to speak in complete sentences, no audible wheezing, stridor, or rales. No retractions or tachypnea. GI: abdomen soft, nontender to palpation, nondistended, no masses, no exquisite tenderness with exam, without guarding or rebound. MSK: moves all extremities, ambulatory w/steady gait, neurovascularly intact, no weakness to muscles, patient has tenderness over LCL, of suprapatellar effusion, mild tenderness over MCL, patellar tendon is palpable no signs of trauma, no erythema, no ecchymosis, Franklin test with full stop posteriorly, questionable anteriorly due to joint effusion. No tenderness over patella, patient states when standing he feels instability in both directions laterally Skin: brisk capillary refill, no rash, no erythema Neuro: normal speech and cognition, A&O x3, normal tone Psych: mental status is grossly normal, congruent mood, normal affect, pleasant and cooperative Initial Vital Signs Initial Vital Signs: Vital Signs Temperature 97.1 F L 11/04/21 12:20 Pulse Rate 90 11/04/21 12:20 Respiratory Rate 22 11/04/21 12:20 Blood Pressure 164/82 H 11/04/21 12:20 Pulse Oximetry 97 11/04/21 12:20 <Lenora Wesley DO - Last Filed: 11/05/21 07:39> Initial Vital Signs Initial Vital Signs: Vital Signs Temperature 97.1 F L 11/04/21 12:20 Pulse Rate 90 11/04/21 12:20 Respiratory Rate 22 11/04/21 12:20 Blood Pressure 164/82 H 11/04/21 12:20 Pulse Oximetry 97 11/04/21 12:20 Course <AGUILA Reid - Last Filed: 11/04/21 14:18> Orders Ordered: ED Orders 11/04/21 12:27 XR knee LT 3V Stat 11/04/21 12:29 Consult to Orthopedic Surgery Stat 11/04/21 12:31 Consult to Orthopedic Surgery Stat Vital Signs Vital signs: Vital Signs - 8 hr 11/04/21 12:20 Temperature 97.1 F L Pulse Rate 90 Respiratory Rate 22 Blood Pressure 164/82 H Pulse Oximetry 97 <Lenora Wesley DO - Last Filed: 11/05/21 07:39> Orders Ordered: ED Orders 11/04/21 12:27 XR knee LT 3V Stat 11/04/21 12:29 Consult to Orthopedic Surgery Stat 11/04/21 12:31 Consult to Orthopedic Surgery Stat Vital Signs Vital signs: Vital Signs - 8 hr 11/04/21 12:20 Temperature 97.1 F L Pulse Rate 90 Respiratory Rate 22 Blood Pressure 164/82 H Pulse Oximetry 97 [facility] - Extremity Injury (Lower) <AGUILA Reid - Last Filed: 11/04/21 14:18> Imaging Data Extremity x-ray #1: Radiologist's Impression: PROCEDURE:? XR KNEE LT 3V ? INDICATIONS:? repeat, injury 1 mo ago, suspect ligamental injury, + effusion ? TECHNIQUE:? 3 views of the knee were acquired.? ? COMPARISON:? [facility], CR, XR KNEE 3 VIEWS LEFT, 10/17/2021, 8:57.? [facility], CR, KNEE 3V RIGHT, 10/27/2016, 20:53. ? FINDINGS:? ? Bones:? Moderate to severe joint space narrowing at the medial compartment.? There is moderate to severe joint space narrowing at the lateral patellar compartment.? There is tricompartmental osteophytosis.? No fractures or dislocations.? No suspicious bony lesions.? ? Soft tissues:? No significant joint effusion.? No suspicious soft tissue calcifications.? Vascular calcifications.? ? ? IMPRESSION:? No fracture.? 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 ? ? Dictated by: Dain Beaver M.D. on 11/04/2021 at 12:58 ? ? Approved by: Dain Beaver M.D. on 11/04/2021 at 13:01 ? [facility] Narrative Medical decision making narrative: This is a 71-year-old male presents to the emergency department complaining of ongoing left knee pain, swelling, instability, and concern for ligamental injury. Patient had an injury on 10/14/2021, went to urgent care 3 days later had knee x-rays which were negative for fracture and showed his degenerative joint disease. He has [facility] insurance and states that his appointments have been delayed over and over and he is concerned about the stability of his left knee because he cannot ambulate without sensation of instability. He denies any sensation changes distally, on exam he has a mild suprapatellar effusion, he has mild tenderness over his MCL and LCL, patellar tendon was palpable, no ecchymosis, erythema, recent fever, dependent edema, wound, or other. Franklin's test had full posterior stop point and questionable anterior stop point. No significant varus or valgus laxity. Patient states he was ambulating when all of a sudden he heard and felt a loud pop, his co-worker also looked over at him to see if he was okay, and these symptoms since this happened on 10/14/2021. He was given a referral to [facility], of referral to Dr. Hsu was also placed as she has orthopedist on-call. I suspect that there may be a ligamental injury due to the mechanism however due to patient's degenerative joint disease it makes it difficult assessment. Gave him a prescription of hydrocodone and tramadol, without advanced imaging, it is difficult to know the proper disposition. Patient is frustrated with his VA insurance in lack of urgency on their part. Encouraged patient to get a MRI and physical therapy referral from his primary, and follow-up with orthopedics. He was fitted in a knee immobilizer which offered great deal of stability in comparison to his other 1. He has crutches at home, and opted to use those instead of getting some new ones today. Patient is appropriate and amenable to discharge home. Vital signs are stable on repeat examination is unremarkable. Patient has been informed of results. Patient has been given strict return to ER precautions for any new or worsening symptoms. Patient understands to follow up closely with outpatient providers as instructed. Patient understands plan and agrees to discharge home. All questions and concerns answered at this time. Discharge Plan Departure Patient Disposition: Home Clinical Impression: Degenerative joint disease of left knee Qualifiers: Osteoarthritis type: unspecified Qualified Code(s): M17.12 - Unilateral primary osteoarthritis, left knee Injury, knee Qualifiers: Encounter type: initial encounter Laterality: left Qualified Code(s): S89.92XA - Unspecified injury of left lower leg, initial encounter Instructions: Osteoarthritis, DI for Knee Sprain Activity Restrictions/Additional Instructions: *You have been diagnosed with a left knee injury, and severe degenerative joint disease of your left knee. Again, there is no fracture on your x-ray, you do have significant osteoarthritis in your left knee. Please follow-up with your primary care provider for advanced imaging a physical therapy referral, or you may go to [facility] for an orthopedist assessment and advanced imaging. I have put a referral in to Dr. Hsu, she is the orthopedist on- call for [facility]. They should call you, but I recommend calling tomorrow morning and scheduling an appointment. Please also call your primary care provider and ask them for an order of a MRI. Hopefully this will get you taking care of sooner. Please wear the knee immobilizer at all times while you are walking, if you have a ligamental injury, it may be duggan to keep the knee immobilizer on at all times so that you do not tear anything further. You may use a crutch or 2 as necessary to help yourself get around. I have called in some hydrocodone to your pharmacy, as well as tramadol. Please use tramadol during the day, and hydrocodone at night so that you do not operate any heavy machinery while impaired. You may apply the Voltaren gel, ice it, rest it, try to stay off of it and keep it in this brace until you follow-up with orthopedics. I hope it starts getting better soon, thank you for trusting us with your care. Please do not take tramadol and hydrocodone together. Hydrocodone is stronger than tramadol. CONTROLLED SUBSTANCE DISCHARGE (Narcotic/benzodiazepine/Flexeril/Phenergan) 1. You have been prescribed narcotic medications, it does have acetaminophe n/Tylenol/paracetamol in it, DO NOT TAKE MORE THAN 4,00mg in 24 hours of Tylenol. *Tramadol does not contain tylenol. 2. Please understand that we cannot provide further refills of narcotics, benzodiazepines or controlled substances through the ED and her pain management will need to be through your provider. 3. While on these medications you cannot drive or operate heavy machinery. 4. You cannot sign legal documents or perform any duties such as this. 5. As long as you are taking opiate pain medications he should also be taking a stool softener such as Colace, Dulcolax, MiraLAX or prune juice, to help avoid constipation. *What to do: *Please continue to take your regular medications as directed. [ x] New medication prescriptions sent to your pharmacy: [ [facility]] [ ] New medication written as a paper prescription [ ] No new medications given *Please follow up with your primary care provider in 2-3 days, call for an appointment. Let them know you were seen in the Emergency Department and that we asked that you be seen for follow-up. We will electronically transmit a record of today's note if your PCP is in our system *If you do not have a primary care provider please contact [phone] to establish care with one of the [facility] primary care providers. *Return to Emergency Department if you should have any new, worsening or c oncerning symptoms, such as [fever greater than 101F, chills, worsening pain, persistent vomiting or other bothersome symptoms] Prescriptions: New hydrocodone-acetaminophen 5-325 mg tablet 1 tab PO Q6H PRN (Reason: pain) Qty: 14 0RF tramadol 50 mg tablet 50 mg PO DAILY PRN (Reason: pain) Qty: 14 0RF diclofenac sodium [Voltaren Arthritis Pain] 1 % gel 2 g topical QID PRN (Reason: pain, swelling) Qty: 100 0RF Rx Instructions: apply to single knee No Action aspirin 81 MG tablet,delayed release (DR/EC) 81 mg PO QDAY Qty: 0 0RF CA PANTOTHENATE/FOLIC ACID/VIT (MULTIVITAMIN) 1 tab PO QDAY Qty: 0 0RF [TRANSDERMAL COMPOUND] 1 - 2 gm Topical BID Qty: 0 0RF atorvastatin [Lipitor] 10 MG tablet 10 mg PO HS Qty: 0 0RF chlorthalidone 25 MG tablet 10 mg PO [facility] Qty: 0 0RF duloxetine [Cymbalta] 60 MG capsule,delayed release(DR/EC) 60 mg PO [facility] Qty: 0 0RF finasteride 5 MG tablet 5 mg PO [facility] Qty: 0 0RF tamsulosin [Flomax] 0.4 MG capsule,extended release 24hr 0.4 mg PO BID Qty: 0 0RF peg [id number] [Visine Tears] 15 ML drops 1 drp OU BID Qty: 0 0RF Referrals: [facility] [Provider Group] - As soon as possible Dilshad Barton PA-C [Non-Staff] - As soon as possible Julieth Frias MD [Primary Care Provider] - <Lenora Wesley DO - Last Filed: 11/05/21 07:39> Cosign ED Attending Cosignature Attestation: I was immediately available in the department for consultation. Documentation has been reviewed. I agree with assessment and plan.
== END 2021-11-04 13:54 | disposition home or self-care (01) ==
PROVIDERS: Emergency Provider Nurse Practitioner Critical Care Medicine
DX: S89.92XA Unspecified injury of left lower leg, initial encounter (principal); M17.12 Unilateral primary osteoarthritis, left knee; X58.XXXA Exposure to other specified factors, initial encounter
CPT/HCPCS: 73562; 99282; 99283

== ENCOUNTER → 2022-01-04 12:55 | Outpatient (CLI) | payer OTHER, SELFPAY ==
[2022-01-04 14:02] LABS: Hematocrit 42.3 % (41-53); Mean Corpuscular HGB Conc 35.4 % (30-36); Mean Corpuscular Hemoglobin 34.7 PG (26-34); Mean Corpuscular Volume 97.8 fL (80-100); Platelet Count 150 X10^3/uL (150-400); Red Blood Cell Count 4.32 X10^6/uL (4.5-5.9); Red Cell Distribution Width 13.8 % (11.6-14.8); White Blood Cell Count 4.2 X10^3/uL (4.5-11.0)
[2022-01-04 14:29] LABS: COVID19 -Nasal RAPID Negative (Negative)
[2022-01-04 14:43] LABS: BUN Creatinine Ratio 16.2 (6-22); Blood Urea Nitrogen 12 mg/dL (9-20); Calcium 9.4 mg/dL (8.4-10.2); Carbon Dioxide 29 mmol/L (22-32); Chloride 104 mmol/L (98-107); Estimated Glomerular Filt Rate > 60 mL/min (>60); Glucose 96 mg/dL (80-110); HEMOLYSIS < 15 (0-50); Potassium 3.7 mmol/L (3.4-5.1); Sodium 140 mmol/L (137-145)
[2022-01-04 17:16] LABS: Neutrophils Absolute Manual 2142 /uL (3000-5900); RBC Morphology Normal Morphology; Total Cells Counted 100
== END ==
PROVIDERS: Referring Provider Orthopaedic Surgery Orthopaedic Surgery of the Spine; Visit Provider Orthopaedic Surgery Orthopaedic Surgery of the Spine
DX: Z01.812 Encounter for preprocedural laboratory examination (principal); Z20.822 Contact with and (suspected) exposure to COVID-19
CPT/HCPCS: 80048; 85025; 87635; C9803

== ENCOUNTER 2022-01-06 07:13 | Day surgery (SDC) | payer OTHER, SELFPAY ==
[2022-01-05 14:54] VITALS: BMI 39.1
[2022-01-06] VITALS (13 sets, daily range): BP systolic 97–160; BP diastolic 54–98; PULSE 83–95; RESP 12–18; TEMP 35.8–37.1; O2SAT 92–100; BMI 39.1
--- NOTE | 2022-01-06 | DI.RAD.S_ITS ---
PROCEDURE: XR LUMBAR SPINE 2-3V INDICATIONS: L3-4 TLIF TECHNIQUE: AP and lateral operative C-arm views of the lumbar spine were acquired. COMPARISON: [facility], , L-SPINE 2-3 VIEWS, 06/28/2012, 17:07. FINDINGS: AP and lateral operative images demonstrate ORIF with posterior lateral carolina and pedicle screw fixation at L3-L4, posterior laminectomy at L3 through L5, and disc spacer placement at L3-L4. IMPRESSION: Operative imaging utilized during lumbar surgery. Dictated by: Aris Serrato M.D. on 01/06/2022 at 15:58 Approved by: Aris Serrato M.D. on 01/06/2022 at 15:59
[2022-01-06] MEDS: LACTATED RINGERS 1,000 ML 42 ML IV (07:58)
--- NOTE | 2022-01-06 08:38 | PM.PREOP ---
Pre-operative Note COVID-19 COVID-19 status: Negative Result date/Date tested (Pos, Neg/Pending): 01/06/22 Criteria for continued procedure: Expected advancement of disease process, Possibility delay results in more complex future surgery or treatment, Increased loss of function, Continuing or worsening of significant or severe pain, Deterioration of the patient's condition or overall health and Delay expected to result in less-positive ultimate med/surg outcome Interval Note History & Physical reviewed/Exam performed by Physician: Yes Changes to H&P: No
--- NOTE | 2022-01-06 08:43 | P.HP_ITS ---
History of Present Illness History of Present Illness Date Patient Seen: 01/06/22 Time Patient Seen: 08:44 Date of Onset of Symptoms: 01/06/16 Chief complaint: OPB Narrative: Mr. Haney is a 71 yo M with history of chronic back pain and worsening left leg pain and weakness. He has epidural scarring and spondylolisthesis and facet cyst correlating with his back pain and radiculopathy. After obtaining informed consent, patient elected to proceed with L3-4 TLIF surgery today. Patient History Medical History BACILIO treated with BiPAP Surgical History Hx of laminectomy (2018) S/P epidural steroid injection Family & Social History Social History: household members none Tobacco & Substance use: Smoking Status Never smoker alcohol intake current alcohol intake frequency holiday/special occasion Substance Use Type does not use Meds Home Medications and Allergies Home Medications Medication Instructions Recorded Confirmed Type CA PANTOTHENATE/FOLIC ACID/VIT 1 tab PO QDAY ##0 03/07/13 01/06/22 History (MULTIVITAMIN) [TRANSDERMAL COMPOUND] 1 - 2 gm topical BID ##0 03/07/13 06/11/19 History aspirin 81 mg tablet,delayed 81 mg PO QDAY ##0 03/07/13 01/06/22 History release atorvastatin 10 mg tablet (Lipitor) 10 mg PO DAILY ##0 04/11/17 01/06/22 History chlorthalidone 25 mg tablet 10 mg PO [facility] ##0 04/11/17 01/06/22 History duloxetine 60 mg capsule,delayed 60 mg PO [facility] ##0 04/11/17 01/05/22 History release (Cymbalta) finasteride 5 mg tablet 5 mg PO [facility] ##0 04/11/17 01/05/22 History peg [id number] 1 1 drp OU BID ##0 04/11/17 01/05/22 History %-0.2 %-0.2 % eye drops (Visine Tears) tamsulosin 0.4 mg capsule (Flomax) 0.4 mg PO BID ##0 04/11/17 01/05/22 History diclofenac sodium 1 % topical gel 2 g topical QID PRN pain, swelling 11/04/21 01/05/22 Rx (Voltaren Arthritis Pain) #100 grams tramadol 50 mg tablet 50 mg PO DAILY PRN pain #14 tabs 11/04/21 01/06/22 Rx allopurinol 100 mg tablet 200 mg PO BID 01/05/22 01/06/22 History amlodipine 10 mg tablet 10 mg PO DAILY 01/05/22 01/06/22 History meloxicam 15 mg tablet 15 mg PO DAILY 01/05/22 01/05/22 History methocarbamol 500 mg tablet 500 mg PO 01/05/22 History potassium chloride 20 mEq 20 meq PO DAILY 01/05/22 01/06/22 History tablet,extended release rosuvastatin 5 mg tablet 5 mg PO DAILY 01/05/22 01/06/22 History Allergies Allergy/AdvReac Type Severity Reaction Status Date / Time Iodinated Contrast Media Allergy Mild Hives Verified 01/06/22 07:49 Review of Systems Review of Systems ROS: Yes All systems reviewed with the patient and are negative except as otherwise documented Exam Vital Signs (past 8 hours): - 01/06/22 08:00 Temperature 98.8 F Pulse Rate 83 Respiratory Rate 16 Blood Pressure 125/82 Pulse Oximetry 95 Oxygen Delivery Method Room Air Oxygen Delivery Method Room Air Neuro Other: + straight leg raise to LLE, sensibility decreased to left L4 dermatome, motor strength 4/5 in left quadriceps and TA. Assessment & Plan Assessment & Plan narrative: Risks for surgery include but not limited to bleeding, infection, nerve/dura/bladder/bowel/blood vessel injury, need for additional procedure, even . Patient understands and would like to proceed with surgery. I scheduled him for L3-4 TLIF. Time Spent With Patient Critical Care time: I spent a total of [] minutes of critical care time on this patient's care today; this time is exclusive of procedural time.
[2022-01-06] MEDS: CEFAZOLIN VIAL 3 GM in SODIUM CHLORIDE 0.9% 100 ML IV (09:01)
--- NOTE | 2022-01-06 09:22 | SUR.OPER ---
Prone on spine table, head in foam head support, padded chest and pelvic supports, gel pad at knees, lower legs supported by 5 pillows; nipples, genitalia and toes free of pressure, arms secured on foam padded arm boards at <90 degrees abduction. Gel padding between patient and bedframe. Tape over blanket at thigh secured to table. Directed and approved by surgeon. Neck alignment approved by anesthesia.
[2022-01-06] MEDS: BUPIVACAINE 0.25% (PF) 30 ML, EPINEPHrine 0.3 MG INJ (09:44)
[2022-01-06] MEDS: BUPIVACAINE LIPOSOME 266 MG/20 ML VIAL INJ (11:19)
--- NOTE | 2022-01-06 11:28 | P.OP_ITS ---
Operative Date/Time/Diagnoses Date of procedure: 01/06/22 Time of procedure: 08:45 Pre-op diagnosis: 1. 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 L3-4 foramen stenosis with radiculopathy 3. L3-4 spondylolisthesis Post-op diagnosis: same Procedure & Clinicians Procedure: 1. L3-4 Postero-lateral and posterior interbody fusion 2. L3-4 interbody cage placement. 3. L3-4 decompressive laminectomy with bilateral facetecomies 4. L3-4 Posterior non-segmental instrumentation 5. [place] of bone marrow from iliac crest 6. Utilization of microsurgical technique and operating microscope Same procedure as scheduled: Yes Indications: Patient has been having chronic back pain and worsening lumbar radiculopathy. Patient had prior laminectomy with progressively worsening leg pain or weakness left worse than right. Patient failed multiple conservative management with worsening pain weakness and numbness in his lower extremity. Patient has been having difficulty performing activity of daily living. After discussing risks benefits of treatment options, patient elected proceed with surgery. Surgeon: Enmanuel Damon Nuclear Medicine Chief Technologist: Rachel Chamorro Click Yes if Unassisted: No Anesthesia Type: General Operative Notes Closure Type: primary Specimen(s): none sent Prosthetic devices, grafts, tissues, transplants, or devices: Globus revolve screws, Rise cage Estimated Blood Loss (mL): 50 Blood products transfused: none Procedure in detail: Patient was seen in the preoperative area. Risks and benefits of the surgery was discussed with the patient. Informed consent was obtained from the patient and placed in the chart. Surgical site was marked. Patient was taken to the operative room. General anesthesia was administered. Prophylactic antibiotic was given to the patient less than 30 min before the incision was made. Patient was placed into a prone position on the Hugo table. Patient's back was then prepped and draped in the sterile fashion. Time-out was performed at this time. Using AP and lateral C-arm imaging the interval between L3-4, was identified and marked on patient's back. A 2 inch incision 2 in from midline was made on the left side first. The fascia was incised in line with skin incision. Globus MARS retractors was placed inside the incision and docked onto the L3 lamina. Using microsurgical technique and operating microscope, a L3 laminectomy and L3-4 facetectomy was performed using a Kerrison rongeur. The disc space at L3-4 was identified. And a total diskectomy was performed at L3-4 level. Patient was found have significant amount of epidural scarring from previous laminectomy. The scar tissue was carefully resected during the process of decompression. The endplates were decorticated using a rasp and shaver. The total diskectomy and decortication was performed at L3-4 level in order to to accomplish a L3-4 fusion. The local bone from the laminectomy and facetectomy was saved for local bone grafting. After the total diskectomy and decortication was completed, Globus Trifecta bone graft material was combined with local bone that was harvested earlier. At this time, a separate skin is incision was made over the iliac crest. A Jamshidi needle was inserted into the iliac crest through a separate skin incision. 5 cc of bone marrow aspiration was obtained through the separate skin incision using a Jamshidi needle from the iliac crest. The bone marrow aspiration was combined with local bone and theTrifecta bone grafting material. The bone grafting material was placed into the L3-4 interbody space along with a expandable cage. The cage was expanded to its maximum height using the torque limiting screwdriver. At this time a mirror image incision was made on the right side. The fascia was incised in line with the skin incision. Globus MARS retractor was inserted and docked onto the L3-4 posterolateral gutter. Using the power drill, posterior- lateral decortication was performed at L3-4 level until bleeding cortical bone was identified. The remaining bone grafting material was placed into the L3-4 posterior lateral gutter he order to accomplish posterolateral fusion at the L3- 4 level. Using the double C-arm technique, pedicle screws were placed into the L3-4 pedicles bilaterally. This was done by placing the Jamshidi needle into the pedicles, then placing the guidewires over the Jamshidi needle, and finally placing the cannulated screws over the guidewires bilaterally. After the pedicle screws were placed, 2 titanium rods was locked into the heads of the pedicle screws using locking caps and torque limiting screwdriver. After all the hardware was placed, and confirmed with AP and lateral C-arm imaging, the wound was then irrigated with sterile normal saline and packed with Ray-Samy gauze for 3 min to accomplish hemostasis. After the gauze was removed the deep fascia was closed with #1 Vicryl suture. The subcutaneous layer was closed with 2-0 Vicryl. The skin was closed with skin jah. Patient tolerated the procedure well. There were no complications. Complications: none Post-operative Condition: stable Disposition: PACU Plan for aftercare: Admit to inpatient hospital
[2022-01-06] MEDS: OXYCODONE IR 5 MG TABLET 10 MG PO ×3 (13:15→22:17)
[2022-01-06] MEDS: DULOXETINE 30 MG CAPSULE 60 MG PO (13:15)
[2022-01-06] MEDS: CHLORTHALIDONE 25 MG TABLET 10 MG PO (13:15)
[2022-01-06] MEDS: FINASTERIDE 5 MG TABLET PO (13:16)
[2022-01-06] MEDS: SODIUM CHLORIDE 0.9% 1,000 ML 100 ML IV ×2 (13:16→23:22)
[2022-01-06] MEDS: HYDROMORPHONE 0.5 MG INJ IV ×2 (14:48→21:16)
--- NOTE | 2022-01-06 15:15 | PT.IIE ---
Current Diagnoses Obstructive sleep apnea (adult) (pediatric) (01/06/22) Other spondylosis with radiculopathy, lumbar region (01/06/22) Spinal stenosis, lumbar region with neurogenic claudication (01/06/22) Surgery Performed Operation Date: 01/06/22 08:45 Actual Procedures p L3-4 TLIF - Enmanuel Damon MD Surgical History (Last Reviewed 01/06/22 @ 08:46 by Enmanuel Damon MD) Hx of laminectomy (2018) S/P epidural steroid injection Medical History (Last Reviewed 01/06/22 @ 08:46 by Enmanuel Damon MD) BACILIO treated with BiPAP Physical Therapy Inpatient Evaluation/Re-Eval M1 PT/OT-IP Prior Functional Status Start: 01/06/22 16:11 Freq: NEEDED Status: Active Protocol: Document 01/06/22 15:15 AB (Rec: 01/06/22 16:20 AB [email or web address]) Medical Review Prior Functional Status Medical History Reviewed Yes Communication able to make needs known Mobility and Gait pt stated that he is modified independent with all mobilities and ambulation without AD indoors but uses a SPC for outdoor mobiltiy Social History Household Members none Living Arrangements House Number of Floors (Floors) One Floor Number of Stairs To Enter/Railing? ramp to enter Home Environment High Toilet,Walk in Shower Home Equipment Front Wheel Walker,Four Wheel Walker,Straight Cane,Shower Seat with Backrest,Hand Held Shower,Grab Bars Near Toilet, Grab Bars In Shower M2 PT-IP Current Condition Start: 01/06/22 16:11 Freq: NEEDED Status: Active Protocol: Document 01/06/22 15:15 AB (Rec: 01/06/22 16:20 AB [email or web address]) Physical Therapy Current Condition Current Condition Evaluation Date 01/06/22 Treatment Diagnosis s/p L3-4 TLIF; difficulty in walking Onset Date 01/06/22 M3 PT-IP Subjective Start: 01/06/22 16:11 Freq: NEEDED Status: Active Protocol: Document 01/06/22 15:15 AB (Rec: 01/06/22 16:20 AB [email or web address]) Subjective Physical Therapy Visit Type Type Initial Evaluation Visit Start Time 15:15 Visit Stop Time 15:50 Total Visit Minutes 35 Number of CUSHION STUFFER Visits 0 Physical Therapy Visit Comments Patient Comments agreeable to do PT; wants more pain meds Therapy Pain Assessment Pain When Pain Assessed At Rest Pain Present Pain Present Pain Reported Location Back Intensity 9 Scale Used Numeric (0 - 10) Pain Management Techniques Distraction,Modification of Treatment,Re-positioning, Timing of Activity with Medications M4 PT-IP Mobility and Gait Start: 01/06/22 16:11 Freq: NEEDED Status: Active Protocol: Document 01/06/22 15:15 AB (Rec: 01/06/22 16:20 AB [id number]) PT-Bed Mobility Assessment Rolling Type of Rolling Log Rolling Level of Assist Independent Supine to Sit Supine to Sit Standby Assistance Sit to Supine Sit to Supine Standby Assistance PT-Transfer Assessment Sit to and From Stand Sit to and from Stand Contact Guard Assistance,1 Person Assistance,Use of Upper Extremities Equipment Transfer Assistive Device Gait Belt,Front Wheeled Walker Orthotic/Prosthetic Devices or Brace: No Comments Mobility Comments educated pt on back precautions and log roll bed mobility. completed log roll supine to sit SBA. able to sit on EOB SBA. completed sit to stand CGA and ambulated in room using FWW CGA with antalgic gait and increase RLE ER. completed ~ 20 ft and then started to just carry FWW during ambulation and stated that that is the best way to use the walker and pt requiring min A for steadiness with increase antalgic gait. pt educated on safey and instructed to use FWW again and was able to ambulated 20 more ft using FWW. pt went back to bed and completed log roll sit to supine SBA. positioned pt in bed. call light and table placed within reach. pt asking for more pain meds. informed nurse. Gait Assessment Gait Gait Assistance Required: Contact Guard Assist,Minimum Assistance Distance (Feet) 40 Able to Maintain Weight Bearing Status Yes During Gait Assistive Devices Assistive Device Gait Belt,Front Wheeled Walker Orthotic/Prosthetic Devices or Brace: No Gait Deviations General Gait Pattern Antalgic,Decreased Stride Length,Decreased Feet Clearance Factors Limiting Gait Function Factors Limiting Gait Function Decreased Activity Tolerance, Decreased Sensation,Decreased Strength,Limited Range of Motion,Pain,Poor Balance,Poor Safety Awareness PT-Balance Assessment Sitting Balance and Reactions Static Sitting Balance Ability Normal Dynamic Sitting Balance Ability Good Standing Balance and Reactions Static Standing Balance Ability Fair Dynamic Standing Balance Ability Fair Device Used FWW M5 PT-IP Objective Assessments Start: 01/06/22 16:11 Freq: NEEDED Status: Active Protocol: Document 01/06/22 15:15 AB (Rec: 01/06/22 16:20 AB [id number]) Orientation Orientation/Cognition Level of Alertness Alert Orientation Name Language Function Ability No Deficits Noted Safety Awareness Decreased Safety Awareness Memory Description No Deficits Noted Gross Range of Motion Lower Extremity ROM Assessment Within Functional Limits Strength Lower Extremity Strength Assessment Left Impaired Hip 4-/5 Knee 4-/5 Comments Strength Comments pt stated that L knee needs to be replaced Sensation Assessment Sensation Gross Sensation Right LE Impaired,Left LE Impaired Sensation Description Numbness Comments Sensation Comments stated chronic LE numbness on B feet Muscle Tone Muscle Tone WNL Yes M6 PT-IP Treatment Start: 01/06/22 16:11 Freq: NEEDED Status: Active Protocol: Document 01/06/22 15:15 AB (Rec: 01/06/22 16:20 AB [id number]) Physical Therapy Treatment Education Education Provided Precautions,Weight Bearing Status,Post-Op Packet,Safety M7 PT-IP Assessment and Plan Start: 01/06/22 16:11 Freq: NEEDED Status: Active Protocol: Document 01/06/22 15:15 AB (Rec: 01/06/22 16:20 [email or web address]) PT Summary Assessment and Plan Potential Rehabilitation Potential Fair Status of Condition at Evaluation Stable Summary Impairments Pain,ROM,Strength,Balance, Coordination,Sensation,Tone, Cognition,Bed Mobility, Transfers,Gait,Activity Tolerance Assessment Summary pt c/o increase pain but able to move SBA to min A and cues for safety as pt can be impulsive. pt lives alone and will not have a consistent person to assist him but can call his friend if needed per pt. pt plans to go home. will continue to assess progress. Goals Bed Mobility Goal Independent Transfer Goal Independent,Front Wheeled Walker Gait Goal Independent,Front Wheel Walker Gait Distance 200 Other Goals improve ambulation using SPC/ without AD mod I 250 ft Days to Meet Goals 10 Frequency of Treatment Frequency Of Treatment Twice a Day Treatment Plan Physical Therapy Treatment Plan Bed Mobility Training,Transfer Training,Gait Training, Therapeutic Exercise,Balance Retraining,Post Op Education, Discharge Planning,Hot or Cold Pack,Neuromuscular Re-ed, Coordination Retraining,Manual Therapy Precautions Lumbar Precautions Log Roll,No Twisting,Limit Bending,Lifting Restriction of 10 lbs,Gait Belt above Incisional Area Recommendations To Nursing Amount of Assist Needed 1 Person Assist Discharge Recommendations PT Discharge Recommendations Home with Assistance Transportation Needs at Discharge Private Vehicle
[2022-01-06] MEDS: CEFAZOLIN 2 GM/20 ML SYRINGE IV (16:45)
--- NOTE | 2022-01-06 18:23 | PC.NURSE ---
Pt is AxOx4, need 1persona assistance with FWW. VSS, pt c/o pain on his back 7-9 and receiving PRN IV Dilaudid and PO Oxy 10 mg with somewhat effective. Pt worked with PT today; pt is voiding well. Last pain med given around 1550. Pt ate well and sleeping now. Pt uses cpap machine at night. Dressing on his back is C/D/I. CMS is intact. No other changes.
[2022-01-06] MEDS: allopurinoL 100 MG TABLET 200 MG PO (21:14)
[2022-01-06] MEDS: TAMSULOSIN 0.4 MG CAPSULE PO (21:14)
[2022-01-06] MEDS: DOCUSATE 100 MG CAPSULE PO (21:14)
[2022-01-06] MEDS: ACETAMINOPHEN 325 MG TABLET 650 MG PO (22:17)
[2022-01-07] MEDS: CEFAZOLIN 2 GM/20 ML SYRINGE IV (00:15)
[2022-01-07 02:56] VITALS: BP 127/78; PULSE 79; RESP 17; TEMP 36.6; O2SAT 95
[2022-01-07] MEDS: ACETAMINOPHEN 325 MG TABLET 650 MG PO (06:03)
[2022-01-07] MEDS: OXYCODONE IR 5 MG TABLET 10 MG PO ×2 (06:03→09:08)
[2022-01-07 07:35] VITALS: BP 142/93; PULSE 82; RESP 16; TEMP 36.3; O2SAT 94
[2022-01-07] MEDS: HYDROMORPHONE 0.5 MG INJ IV (08:19)
[2022-01-07] MEDS: MULTIVITAMIN 1 TABLET 1 TAB PO (08:22)
[2022-01-07] MEDS: POTASSIUM CHLORIDE 20 MEQ TAB PO (08:22)
[2022-01-07] MEDS: ATORVASTATIN 20 MG TABLET 10 MG PO (08:22)
[2022-01-07] MEDS: FINASTERIDE 5 MG TABLET PO (08:22)
[2022-01-07] MEDS: AMLODIPINE 5 MG TABLET 10 MG PO (08:22)
[2022-01-07] MEDS: TAMSULOSIN 0.4 MG CAPSULE PO (08:22)
[2022-01-07] MEDS: allopurinoL 100 MG TABLET 200 MG PO (08:22)
[2022-01-07] MEDS: DULOXETINE 30 MG CAPSULE 60 MG PO (08:23)
[2022-01-07] MEDS: DOCUSATE 100 MG CAPSULE PO (08:23)
[2022-01-07] MEDS: MAGNESIUM HYDROXIDE 30 ML UDC PO (08:24)
[2022-01-07] MEDS: CHLORTHALIDONE 25 MG TABLET 10 MG PO (08:28)
[2022-01-07] MEDS: hydrOXYzine pamoate 25 MG CAPSULE PO (09:08)
--- NOTE | 2022-01-07 09:56 | OT.IP.EVAL ---
Current Diagnoses Obstructive sleep apnea (adult) (pediatric) (01/06/22) Other spondylosis with radiculopathy, lumbar region (01/06/22) Spinal stenosis, lumbar region with neurogenic claudication (01/06/22) Surgery Performed Operation Date: 01/06/22 08:45 Actual Procedures p L3-4 TLIF - Enmanuel Damon MD Past Medical History (Last Reviewed 01/06/22 @ 08:46 by Enmanuel Damon MD) BACILIO treated with BiPAP Surgical History (Last Reviewed 01/06/22 @ 08:46 by Enmanuel Damon MD) Hx of laminectomy (2018) S/P epidural steroid injection Occupational Therapy Inpatient Evaluation/Re-Eval M1 PT/OT-IP Prior Functional Status Start: 01/06/22 16:11 Freq: NEEDED Status: Active Protocol: Document 01/07/22 11:45 CGR (Rec: 01/07/22 12:00 CGR [id number]) Medical Review Prior Functional Status Medical History Reviewed Yes Communication able to make needs known Mobility and Gait pt stated that he is modified independent with all mobilities and ambulation without AD indoors but uses a SPC for outdoor mobiltiy Activities of Daily Living and IADL's Pt was IND in all ADLs Social History Household Members none Living Arrangements House Number of Floors (Floors) One Floor Number of Stairs To Enter/Railing? 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 M1 PT/OT-IP Prior Functional Status Start: 01/07/22 11:44 Freq: NEEDED Status: Active Protocol: Document 01/07/22 11:45 CGR (Rec: 01/07/22 12:00 CGR [id number]) Medical Review Prior Functional Status Medical History Reviewed Yes Communication able to make needs known Mobility and Gait pt stated that he is modified independent with all mobilities and ambulation without AD indoors but uses a SPC for outdoor mobiltiy Activities of Daily Living and IADL's Pt was IND in all ADLs Social History Household Members none Living Arrangements House Number of Floors (Floors) One Floor Number of Stairs To Enter/Railing? 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 M2 OT-IP Current Condition Start: 01/07/22 11:44 Freq: Status: Active Protocol: Document 01/07/22 11:45 CGR (Rec: 01/07/22 12:00 CGR [id number]) Occupational Therapy Current Condition Current Condition Evaluation Date 01/07/22 Treatment Diagnosis L3-4 fusion Diagnosis Onset Date 01/06/22 Post Operative Precautions Lumbar Precautions Log Roll,No Twisting,Limit Bending,Lifting Restriction of 10 lbs,Gait Belt above Incisional Area M3 OT- IP Subjective and Pain Start: 01/07/22 11:44 Freq: Status: Active Protocol: Document 01/07/22 11:45 CGR (Rec: 01/07/22 12:00 CGR [id number]) OT- Subjective Occupational Therapy Visit Type Type Initial Evaluation Visit Start Time 09:29 Visit Stop Time 09:56 Total Visit Minutes 27 Notes Pt up in bathroom IND when OT entered. OT Pain Assessment Pain When Pain Assessed At Rest Pain Present Pain Present Pain Reported Location Back Intensity 5 Scale Used Numeric (0 - 10) Management Techniques Modification of Treatment,Re- positioning M4 OT- IP ADL's Start: 01/07/22 11:44 Freq: Status: Active Protocol: Document 01/07/22 11:45 CGR (Rec: 01/07/22 12:00 CGR [id number]) OT [id number] Comments OT Self-Feeding Comments not meal time OT ADL-Grooming General Evaluation Grooming Ability Standby Assistance Areas Needing Assistance Face Washing Comments OT Grooming Comments standing at sink OT ADL-Oral Care General Eval Oral Care Ability Standby Assistance Areas of Assistance Brushing Teeth,Retrieving/Set- Up of Items Comments Oral Care Comments standing at sink OT ADL-Dressing General Eval Lower Body Dressing Ability Standby Assistance Areas Needing Assistance Socks Comments OT Dressing Comments Pt is able to bring foot to knee for sock donning/doffing OT ADL-Toileting General Evaluation Toileting Ability Independent Comments OT Toileting Comments seated on toielt. Pt urinated but was unable to void. OT ADL-Bathing Comments OT Bathing Comments not performed M5 OT- IP IADL's Start: 01/07/22 11:44 Freq: Status: Active Protocol: Document 01/07/22 11:45 CGR (Rec: 01/07/22 12:00 CGR [id number]) OT-Instrumental Activities of Daily Living Deficits IADL Deficits Identified No Deficits Home Safety Awareness Awareness of Need for Assistance at Home Good Awareness Ability to Problem Solve Emergency Able to Problem Solve Situations Home Safety Comments Pt is implusive with his mobility but presents as supervision level on this date . 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 M6 OT- IP Functional Cognition Start: 01/07/22 11:44 Freq: Status: Active Protocol: Document 01/07/22 11:45 CGR (Rec: 01/07/22 12:00 CGR [id number]) Cognitive Factors Limiting Selfcare Function Cognitive Ability Level of Alertness Alert Patient Orientation Name,Age,Birthday,Month,Date, Year,Day of Week,Place, Situation Attention Span Ability Capable of Focused Attention, Capable of Sustained Attention Ability to Follow Commands Able to Follow Multi-Step Commands OT- Vision and Hearing OT- Hearing Assessment OT- Hearing Assessment Hearing Impaired,Use of Hearing Aids OT- Vision Assessment Visual Acuity Glasses All The Time Visual Attentiveness WFL Occular Pursuits WFL Visual Convergence WFL Vision Assessment Comments Noted significant nastagmus with eye tracking and throughout session. Pt wears bifocals. M7 OT- IP Mobility and Balance Start: 01/07/22 11:44 Freq: Status: Active Protocol: Document 01/07/22 11:45 CGR (Rec: 01/07/22 12:00 CGR [id number]) OT-Transfer Assessment Sit to and From Stand Sit to and from Stand Standby Assistance Transfers Transfer Ability Standby Assistance Technique Transfer Destination Chair,Toilet Transfer Technique Stand Step Pivot Devices Transfer Assistive Devices None Comments Mobility Comments Pt up in BR when OT entered. Pt provided with walker but did not use for mobility in the room. OT- Balance Assessment Sitting Balance and Reactions Static Sitting Balance Ability Normal Dynamic Sitting Balance Ability Normal M8 OT- IP Objective Assessments Start: 01/07/22 11:44 Freq: Status: Active Protocol: Document 01/07/22 11:45 CGR (Rec: 01/07/22 12:00 CGR [id number]) OT Gross Range of Motion Upper Extremity Range of Motion Assessment Within Functional Limits OT Strength Upper Extremity Strength Assessment Within Functional Limits OT- Coordination Assessment Upper Extremity Finger to Nose Test Within Functional Limits Finger Tapping Test Within Functional Limits OT-Muscle Tone Assessment Muscle Tone WNL Yes OT Sensation Assessment Edema Edema Absent M9 OT- IP Assessment and Plan Start: 01/07/22 11:44 Freq: Status: Active Protocol: Document 01/07/22 11:45 CGR (Rec: 01/07/22 12:00 CGR [id number]) OT Summary Assessment and Plan Potential Rehabilitation Potential Good Analytic Complexity at Evaluation Low Summary OT Impairments Pain,Functional Mobility, Bathing,Shower Transfers, Activity Tolerance Progress Towards Goals Progressing Toward Goals Assessment Summary Pt presents as a low complexity evaluation s/p admit for L3-4 fusion. Pt is impulsive with mobility but presents at supervision. Pt educated on back precautions throughout session. Pt left sitting up in chair at end of session with chair fall alarm armed. Pt is requesting to discharge home today. If he stays, he will benefit from a shower training. Goals Bathing Goal Independent Shower Transfer Goal Independent Days to Meet Goals 1 Frequency of Treatment Frequency Of Treatment Once a Day Treatment Plan OT Treatment Plan ADL Training,Patient/Family Education,Discharge Planning Other Treatment Recommendations and Next shower Treatment Focus Discharge Recommendations OT Discharge Recommendations Home Transportation Needs at Discharge Private Vehicle
--- NOTE | 2022-01-07 10:34 | PT.IPTN ---
Current Diagnoses Obstructive sleep apnea (adult) (pediatric) (01/06/22) Other spondylosis with radiculopathy, lumbar region (01/06/22) Spinal stenosis, lumbar region with neurogenic claudication (01/06/22) Surgery Performed Operation Date: 01/06/22 08:45 Actual Procedures p L3-4 TLIF - Enmanuel Damon MD Physical Therapy Treatment Note M2 PT-IP Current Condition Start: 01/06/22 16:11 Freq: NEEDED Status: Active Protocol: Document 01/06/22 15:15 AB (Rec: 01/06/22 16:20 AB [id number]) Physical Therapy Current Condition Current Condition Evaluation Date 01/06/22 Treatment Diagnosis s/p L3-4 TLIF; difficulty in walking Onset Date 01/06/22 M3 PT-IP Subjective Start: 01/06/22 16:11 Freq: NEEDED Status: Active Protocol: Document 01/07/22 10:24 KS (Rec: 01/07/22 12:03 KS [id number]) Subjective Physical Therapy Visit Type Type Treatment Note Visit Start Time 10:24 Visit Stop Time 10:34 Total Visit Minutes 10 Number of WATCH TRAIN INSPECTOR Visits 1 Physical Therapy Visit Comments Patient Comments agreeable to do PT M4 PT-IP Mobility and Gait Start: 01/06/22 16:11 Freq: NEEDED Status: Active Protocol: Document 01/07/22 10:24 KS (Rec: 01/07/22 12:03 KS [id number]) PT-Bed Mobility Assessment Rolling Type of Rolling Log Rolling Level of Assist Independent Supine to Sit Supine to Sit Standby Assistance Sit to Supine Sit to Supine Standby Assistance PT-Transfer Assessment Sit to and From Stand Sit to and from Stand Standby Assistance,1 Person Assistance,Use of Upper Extremities Equipment Transfer Assistive Device Gait Belt,Front Wheeled Walker Orthotic/Prosthetic Devices or Brace: No Transfers Transfer Destination Bed Transfer Technique pt ambulated Transfer Ability Level of Assist Standby Assistance Comments Mobility Comments Pt in chair upon arrival and unable to recall precautions. SBA for sit<>Stand w/ FWW. Pt then ambulated ~60 ft around room w/ FWW. Pt w/ poor safety awareness and impulsive and not wanting to follow cues, but no LOB. Pt then peformed logroll and bed mobility SBA into, out of, and back into bed. Pt left in bed w/ all needs in reach. Gait Assessment Gait Gait Assistance Required: Standby Assistance,1 Person Assist Distance (Feet) 60 Able to Maintain Weight Bearing Status Yes During Gait Assistive Devices Assistive Device Gait Belt,Front Wheeled Walker Orthotic/Prosthetic Devices or Brace: No Gait Deviations General Gait Pattern Antalgic,Decreased Stride Length,Decreased Feet Clearance Factors Limiting Gait Function Factors Limiting Gait Function Decreased Activity Tolerance, Decreased Sensation,Decreased Strength,Limited Range of Motion,Pain,Poor Balance,Poor Safety Awareness Comments Gait Comments Impulsive, no LOB. PT-Balance Assessment Sitting Balance and Reactions Static Sitting Balance Ability Normal Dynamic Sitting Balance Ability Good Standing Balance and Reactions Static Standing Balance Ability Fair Dynamic Standing Balance Ability Fair Device Used FWW M5 PT-IP Objective Assessments Start: 01/06/22 16:11 Freq: NEEDED Status: Active Protocol: Document 01/06/22 15:15 AB (Rec: 01/06/22 16:20 AB [id number]) Orientation Orientation/Cognition Level of Alertness Alert Orientation Name Language Function Ability No Deficits Noted Safety Awareness Decreased Safety Awareness Memory Description No Deficits Noted Gross Range of Motion Lower Extremity ROM Assessment Within Functional Limits Strength Lower Extremity Strength Assessment Left Impaired Hip 4-/5 Knee 4-/5 Comments Strength Comments pt stated that L knee needs to be replaced Sensation Assessment Sensation Gross Sensation Right LE Impaired,Left LE Impaired Sensation Description Numbness Comments Sensation Comments stated chronic LE numbness on B feet Muscle Tone Muscle Tone WNL Yes M6 PT-IP Treatment Start: 01/06/22 16:11 Freq: NEEDED Status: Active Protocol: Document 01/07/22 10:24 KS (Rec: 01/07/22 12:03 KS [id number]) Physical Therapy Treatment Education Education Provided Precautions,Weight Bearing Status,Post-Op Packet,Safety M7 PT-IP Assessment and Plan Start: 01/06/22 16:11 Freq: NEEDED Status: Active Protocol: Document 01/07/22 10:24 KS (Rec: 01/07/22 12:03 KS [id number]) PT Summary Assessment and Plan Potential Rehabilitation Potential Fair Status of Condition at Evaluation Stable Summary Impairments Pain,ROM,Strength,Balance, Coordination,Sensation,Tone, Cognition,Bed Mobility, Transfers,Gait,Activity Tolerance Assessment Summary Pt eager to return home and was able to perform bed mobility and ambulation SBA. He is impulsive w/ FWW and has poor safety awareness, however insisted on doing things his own way. States he has friends to help him as needed. Goals Bed Mobility Goal Independent Transfer Goal Independent,Front Wheeled Walker Gait Goal Independent,Front Wheel Walker Gait Distance 200 Other Goals improve ambulation using SPC/ without AD mod I 250 ft Days to Meet Goals 10 Frequency of Treatment Frequency Of Treatment Twice a Day Treatment Plan Physical Therapy Treatment Plan Bed Mobility Training,Transfer Training,Gait Training, Therapeutic Exercise,Balance Retraining,Post Op Education, Discharge Planning,Hot or Cold Pack,Neuromuscular Re-ed, Coordination Retraining,Manual Therapy Precautions Lumbar Precautions Log Roll,No Twisting,Limit Bending,Lifting Restriction of 10 lbs,Gait Belt above Incisional Area Recommendations To Nursing Amount of Assist Needed 1 Person Assist Discharge Recommendations PT Discharge Recommendations Home with Assistance Transportation Needs at Discharge Private Vehicle
--- NOTE | 2022-01-07 12:17 | CM.DANOTE ---
DCP: Case received, EMR reviewed and met with patient. Introduced self and role. Was able to obtain information regarding patient's baseline activity prior to surgery, as well as his current living situation. DCP assessment completed with information currently available. Patient is a 71 year old male who admitted yesterday morning to the care of the orthopedic team. PCP: Dr. Frias. Payer: confirmed: [employer]age. Patient came to the hospital via private vehicle for a surgical procedure. Patient had L3-4 postero-lateral and posterior interbody fusion. Patient has history of spinal stenosis. Met with patient in his room. He is alert and oriented, he was sitting up in bed speaking on his phone prior to this DC category planner entering room. Confirmed with patient that he resides alone in [place]. He has a friend named Magdaleno, who lives next door, and stated, should be able to help him as needed. Patient is hopeful to go home today. He indicated, he has been walking in his room with his walker. P.T. will be working with patient again today. P: DCP to continue to follow. Patient will work further with P.T. Plan is home when stable and cleared by the therapy team. Anabel Luna RN/Fish Butcher Discharge Planning/Care Management CM Discharge Assessment Start: 01/07/22 12:15 Freq: Status: Active Protocol: Document 01/07/22 12:16 (Rec: 01/07/22 12:17 [id number]) Discharge Planning Assessment Assigned Child Psychologist Anabel Luna RN/Fish Butcher Advance Directives? No History Provided By Patient,Medical Record Prior Living Arrangements House Household Members none Type of transporation used prior to Drives own vehicle admit Independent with ADL's Yes Is patient alert and oriented? Yes DME Already Rented / Owned FWW / Walker,Other Comment Has ramp and high toilet seat. Barriers to Discharge No Discharge Plan Home Transportation Arrangement Friend Referrals Initiated None needed Whiteboard Updated in Patient Room with Yes name and ext. # of Child Psychologist Review Status In Process Next Review Type Continued Stay Review Pre-Anesthesia Assessment Start: 01/05/22 14:54 Freq: Status: Active Protocol: Document 01/05/22 14:54 CAB (Rec: 01/05/22 15:27 CAB [id number]) Pre-Anesthesia Assessment Patient Information Reviewed Via Chart Review Diagnostic Results CBC,Electrolytes Comment Labs @ 01/04/22, COVID screen @ 01/04/22 Negative Primary Care Provider Julieth Frias Seen Specialist in Last 12 Months Yes Specialist Seen Orthopedist Primary Language [facility] Admissions Director Required No Height 6 ft 3 in Weight 313 lb Body Mass Index (BMI) 39.1 Barriers to Learning None Anesthesia Review Requested No Smoking Status Never smoker Substance Use Type does not use Pain Present Pain Reported Musculoskeletal Symptoms Back Pain,Radiating Pain into Limb Patient is completely paralyzed or No completely immobile Mental Status Oriented to own ability Hx Sleep Apnea Yes: On BiPAP CPAP/BIPAP use prescribed and used routinely Currently Taking a Beta David No Anti-Coagulant Therapy No Cardiac Testing No Hx Pacemaker/ICD No Pacemaker Rep Required? No Urinary Catheter Present No Hx Urinary Self Catheterization No Diabetes No Received a COVID vaccine? Yes Marital Status / Patient Discharge Plan Description Return Home Advance Directives? No
[2022-01-07 14:01] LABS: Hematocrit 37.2 % (41-53); Hemoglobin 13.3 g/dL (13.5-17.5)
--- NOTE | 2022-01-07 14:10 | PM.DS.1 ---
History of Present Illness History of Present Illness Date Patient Seen: 01/07/22 Time Patient Seen: 14:10 Chief complaint: OPB Narrative: Patient is complaining of moderate to severe lumbar pain. He denies any new numbness or tingling since surgery. He is requesting changing from oxycodone to [place] as that has worked better for him in the past. Vistaril as making him rather sleepy and out of it. Overall he is feeling well and would like to be discharged home today Discharge Providers Provider Discharge Date: 01/07/22 Primary care physician: Julieth Frias MD Consults: 01/06/22 08:09 Consult to Respiratory Therapy Evaluate & Treat Comment: Physician Instructions: Evaluate and treat 01/06/22 12:18 Consult to Occupational Therapy Evaluate & Treat Comment: Physician Instructions: Evaluate and treat Consult to Physical Therapy Evaluate & Treat Comment: Physician Instructions: Evaluate and Treat Discharge provider: Rachel Chamorro PA-C Summary Hospital Course Discharge Diagnosis: 1. 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 L3-4 foramen stenosis with radiculopathy 3. L3-4 spondylolisthesis Hospital Course: Operative Date/Time/Diagnoses Date of procedure: 01/06/22 Time of procedure: 08:45 Post-op diagnosis: same Procedure & Clinicians Procedure: 1. L3-4 Postero-lateral and posterior interbody fusion 2. L3-4 interbody cage placement. 3. L3-4 decompressive laminectomy with bilateral facetecomies 4. L3-4 Posterior non-segmental instrumentation 5. Lynn of bone marrow from iliac crest 6. Utilization of microsurgical technique and operating microscope Same procedure as scheduled: Yes Indications: Patient has been having chronic back pain and worsening lumbar radiculopathy. Patient had prior laminectomy with progressively worsening leg pain or weakness left worse than right. Patient failed multiple conservative management with worsening pain weakness and numbness in his lower extremity.? Patient has been having difficulty performing activity of daily living.? After discussing risks benefits of treatment options, patient elected proceed with surgery. Surgeon: Enmanuel Damon Irrigating Pump Operator: Rachel Chamorro Click Yes if Unassisted: No Anesthesia Type: General Operative Notes Closure Type: primary Specimen(s): none sent Prosthetic devices, grafts, tissues, transplants, or devices: Globus revolve screws, Rise cage Estimated Blood Loss (mL): 50 Blood products transfused: none Status at Discharge Cognitive/behavioral status at discharge: at baseline, oriented Functional status at discharge: uses cane/walker Overall status at discharge: patient is progressing back to baseline Exam Vital Signs (past 8 hours): - 01/07/22 07:35 Temperature 97.4 F L Pulse Rate 82 Respiratory Rate 16 Blood Pressure 142/93 H Pulse Oximetry 94 Oxygen Delivery Method Room Air Oxygen Flow Rate 0 Narrative Exam Narrative: Pleasant 71-year-old male, resting comfortably in bed, no acute distress. Dressing demonstrates some serosanguineous drainage, no surrounding erythema or induration. Bilateral lower extremity: Motor functions are grossly intact, sensation is grossly intact to light touch, calves are soft and nontender to palpation. Objective Labs Result Diagrams: 01/07/22 13:37 PFS Medical History BACILIO treated with BiPAP Surgical History Hx of laminectomy (2018) S/P epidural steroid injection Social History household members: none Smoking Status: Never smoker alcohol intake: current Discharge Assessment & Plan Assessment and Plan Assessment: -stable status post L3-4 TLIF Plan of Treatment: -mobilize with PT and OT. Limit bending, lifting, twisting x6 weeks -continue with multimodal pain management. We will discontinue oxycodone and changed to [place] 10s. Visceral will be used only at night since makes him very sleepy -pending H&H -DC home once cleared by PT and H&H is within normal limits Discharge Plan Discharge Plan Patient Disposition: Home Discharge orders & Medications Discharge Orders: Discharge (Order); Ordered 01/07/22 Ordered By: Rachel Chamorro Prescriptions: New docusate sodium 100 mg Capsule 100 mg PO BID PRN (Reason: Constipation from narcotic pain meds) Qty: 20 0RF hydrocodone-acetaminophen 10-325 mg Tablet 1 tab PO Q4HR MDD Max 6 tabs per day PRN (Reason: Pain, Moderate (4-6)) Qty: 42 0RF hydroxyzine pamoate 25 mg Capsule 25 mg PO BEDTIME PRN (Reason: Muscle spasm/pain/nausea) Qty: 14 0RF Continued aspirin 81 MG tablet,delayed release (DR/EC) 81 mg PO QDAY Qty: 0 CA PANTOTHENATE/FOLIC ACID/VIT (MULTIVITAMIN) 1 tab PO QDAY Qty: 0 atorvastatin [Lipitor] 10 MG tablet 10 mg PO DAILY Qty: 0 chlorthalidone 25 MG tablet 10 mg PO AMCC Qty: 0 duloxetine [Cymbalta] 60 MG capsule,delayed release(DR/EC) 60 mg PO AMCC Qty: 0 finasteride 5 MG tablet 5 mg PO AMCC Qty: 0 tamsulosin [Flomax] 0.4 MG capsule,extended release 24hr 0.4 mg PO BID Qty: 0 Visine Tears 15 ML drops 1 drp OU BID Qty: 0 methocarbamol 500 mg Tablet 500 mg PO PRN PRN (Reason: Muscle Spasm) meloxicam 15 mg Tablet 15 mg PO DAILY allopurinol 100 mg Tablet 200 mg PO BID amlodipine 10 mg Tablet 10 mg PO DAILY rosuvastatin 5 mg Tablet 5 mg PO DAILY potassium chloride 20 mEq Tablet Extended Release 20 meq PO DAILY tramadol 50 mg tablet 50 mg PO DAILY PRN (Reason: pain) Qty: 14 0RF diclofenac sodium [Voltaren Arthritis Pain] 1 % gel 2 g topical QID PRN (Reason: pain, swelling) Qty: 100 0RF Rx Instructions: apply to single knee Follow up/Referrals: Julieth Frias MD [Primary Care Provider] - Enmanuel Damon MD [Physician] - (10-14 days for postoperative visit) Diet/Activity/Treatments Diet: Diet as Tolerated Other treatments: Medications: -OTC Tylenol 500 mg 1 tablet every 4 hours as needed for pain/fever. Max 6 tablets per day. -[place] 10/325 take 1 tablets every 4 hours as needed for moderate-severe pain (narcotic pain medication). -As needed medications: -Ducolax and /or MiraLax as needed for constipation from narcotic pain medications. -Pepcid AC as needed for stomach upset. -Vistaril (hydroxyine) 25mg 1 tab at bedtime as needed for spasms/pain/nausea. Dressing/Wound care: -Keep dressing in place until postoperative follow-up office visit. -Okay to shower. Keep wound out of direct water stream. Can use PressNSeal plastic wrap to protect from shower stream. No soaking or submerging until all the scabs fall off (approximately 6 weeks). -Please call the office if dressing becomes wet, soiled, or saturated. Activities: -Limit bending, lifting, twisting x6 weeks. No deep bending (more than 90 degrees) or twisting at the waist. No lifting > 20 pounds. -Walk frequently. -Weight-bearing as tolerated. Use front wheeled walker, and progress to cane when safe. -Continue with home exercises as directed by your physical therapist. -Ice your incision as needed for pain/inflammation/swelling. Protect your skin with a folded pillowcase. -Incentive Spirometer (breathing device from hospital): 5-10xs every hour while awake for the first 1-2 weeks. Follow-up: -Follow-up with your surgeon or PA in the office in 10-14 days after surgery. -Follow-up with your surgeon 6 weeks postoperatively. Call the office if you have chest pain, shortness of breath, significant swelling that will not resolve with elevating, fever over 101?, significantly worsening pain, or are concerned you might need to go to the Emergency Room. [facility]: [phone] Skin/Wound/Dressing Care Report to your healthcare provider any signs of infection, such as:: chills, fever, night sweats, unusual drainage and unusual redness Visit Report/Discharge Packet Instructions: How to Prevent Falls, DI for Transforaminal Lumbar Interbody Fusion Stand Alone Forms: Surgery Discharge Discharge Data Primary Care Provider: Julieth Frias Attending Provider: Enmanuel Damon
[2022-01-07] MEDS: HYDROCODONE/ACET 10/325 TABLET 1 TAB PO (15:01)
--- NOTE | 2022-01-07 15:16 | PC.NURSE ---
Day shift: Paperwork signed and all questions answered. He has all personal belongings. scripts sent electronic to his pharmacy. Dressing changed today and remains CDI. CMS intact and pain well controlled per SEP. Left unit via [facility] w/ [facility] [place] at approx 1515. He was very eager to leave today. His friend is driving him home.
== END 2022-01-07 15:19 | disposition home or self-care (01) ==
LOC: OR 07:14 → AC 07:15
PROVIDERS: Physician Assistant; Referring Provider Orthopaedic Surgery Orthopaedic Surgery of the Spine; Visit Provider Orthopaedic Surgery Orthopaedic Surgery of the Spine
PROC: (CPT 22633; principal; 2022-01-06 08:45)
DX: M48.062 Spinal stenosis, lumbar region with neurogenic claudication (principal); M47.26 Other spondylosis with radiculopathy, lumbar region; M96.1 Postlaminectomy syndrome, not elsewhere classified
CPT/HCPCS: 22633; 20939; 63052; 22853; 22840; 36415; 72100; 76000; 82962; 85014; 85018; 97161; 97165; 97530; 97535; C1713; C9290; J0171; J0330; J0690; J1100; J1170; J2250; J2405; J2704; J3010

== ENCOUNTER 2022-07-14 13:33 | Emergency (ER) | payer OTHER, SELFPAY ==
[2022-01-06 14:00] VITALS: BMI 39.1
[2022-07-14 13:56] VITALS: BP 128/91; PULSE 94; RESP 18; TEMP 36.4; O2SAT 97; BMI 36.5
--- NOTE | 2022-07-14 14:46 | ED_ITS ---
HPI - Back Pain/Injury <Timo Nguyen PA-C - Last Filed: 07/14/22 15:40> General Chief Complaint: Back Pain/Injury Stated Complaint: sciatica on rt side Time Seen by Provider: 07/14/22 14:46 History of Present Illness HPI Narrative: This is a 71-year-old male presents emergency department due to sciatica like symptoms on the right side. States he has a long history of sciatica on the left side that eventually showed a cyst that needed aspiration by particular has [facility] orthopedics. Patient states that the pain feels very similar on the right side beginning to go down his posterior right thigh and wrapping around to the front of the distal lower extremity. Denies any numbness tingling, denies saddle paresthesia, denies urinary or bowel incontinence, denies fevers. Related Data Home Medications Medication Instructions Recorded Confirmed CA PANTOTHENATE/FOLIC ACID/VIT 1 tab PO QDAY ##0 03/07/13 01/06/22 (MULTIVITAMIN) aspirin 81 mg tablet,delayed 81 mg PO QDAY ##0 03/07/13 01/06/22 release atorvastatin 10 mg tablet (Lipitor) 10 mg PO DAILY ##0 04/11/17 01/06/22 chlorthalidone 25 mg tablet 10 mg PO [facility] ##0 04/11/17 01/06/22 duloxetine 60 mg capsule,delayed 60 mg PO [facility] ##0 04/11/17 01/05/22 release (Cymbalta) finasteride 5 mg tablet 5 mg PO [facility] ##0 04/11/17 01/05/22 peg [id number] 1 1 drp OU BID ##0 04/11/17 01/05/22 %-0.2 %-0.2 % eye drops (Visine Tears) tamsulosin 0.4 mg capsule (Flomax) 0.4 mg PO BID ##0 04/11/17 01/05/22 allopurinol 100 mg tablet 200 mg PO BID 01/05/22 01/06/22 amlodipine 10 mg tablet 10 mg PO DAILY 01/05/22 01/06/22 meloxicam 15 mg tablet 15 mg PO DAILY 01/05/22 01/05/22 methocarbamol 500 mg tablet 500 mg PO PRN PRN Muscle Spasm 01/05/22 01/07/22 potassium chloride 20 mEq 20 meq PO DAILY 01/05/22 01/06/22 tablet,extended release rosuvastatin 5 mg tablet 5 mg PO DAILY 01/05/22 01/06/22 Previous Rx's Medication Instructions Recorded diclofenac sodium 1 % topical gel 2 g topical QID PRN pain, swelling 11/04/21 (Voltaren Arthritis Pain) #100 grams tramadol 50 mg tablet 50 mg PO DAILY PRN pain #14 tabs 11/04/21 docusate sodium 100 mg capsule 100 mg PO BID PRN Constipation 01/07/22 from narcotic pain meds #20 caps hydrocodone 10 mg-acetaminophen 1 tab PO Q4HR PRN Pain, Moderate 01/07/22 325 mg tablet (4-6) #42 tabs hydroxyzine pamoate 25 mg capsule 25 mg PO BEDTIME PRN Muscle 01/07/22 spasm/pain/nausea #14 caps cyclobenzaprine 10 mg tablet 10 mg PO BEDTIME PRN muscle spasm 07/14/22 #14 tabs Allergies Allergy/AdvReac Type Severity Reaction Status Date / Time Iodinated Contrast Media Allergy Mild Hives Verified 07/14/22 13:56 Review of Systems <Timo Nguyen PA-C - Last Filed: 07/14/22 15:40> Review of Systems Narrative: GENERAL: Denies chills, fatigue, malaise, fever, sweats. HEENT: Denies sinus pain, ear pain, sore throat, difficulty swallowing, dizziness. RESPIRATORY: Denies dyspnea, cough, wheezing, hemoptysis, sputum. CARDIOVASCULAR: Denies chest pain, palpitations, orthopnea, edema, GASTROINTESTINAL: Denies nausea, vomiting, abdominal pain, diarrhea, constipation, melena. : Denies dysuria, frequency, incontinence, hematuria, urinary retention. MUSCULOSKELETAL: Right lower extremity pain SKIN: Denies rash, skin lesions, or other NEUROLOGIC: Denies weakness, headache, numbness, change in speech, confusion, seizures, incoordination. PSYCHIATRIC: No concerning psychosocial issues. 12 point review of systems is negative except for those stated above Patient History <Timo Nguyen PA-C - Last Filed: 07/14/22 15:40> Medical History BACILIO treated with BiPAP Surgical History Hx of laminectomy (2018) S/P epidural steroid injection Social History household members: none Smoking Status: Never smoker alcohol intake: current Smoking Status: Never smoker alcohol intake frequency: holidays/special occasions only Substance Use Type: marijuana Exam <Timo Nguyen PA-C - Last Filed: 07/14/22 15:40> Narrative Exam Narrative: GENERAL: Well-developed patient, in mild distress. HEAD: Atraumatic. Normocephalic. EYES: Pupils equal round and reactive. Extraocular motions intact. No scleral icterus. No injection or drainage. ENT: Nose without bleeding, purulent drainage. Throat without erythema, tonsillar hypertrophy or exudate. Airway patent. NECK: Trachea midline. Non tender CARDIOVASCULAR: Regular rate and rhythm without murmurs, gallops, or rubs. RESPIRATORY: Clear to auscultation. Breath sounds equal bilaterally. No wheezes, rales, or rhonchi. GASTROINTESTINAL: Abdomen soft, non-tender, nondistended. EXTREMITIES: Mild tenderness to palpation to right buttock area BACK: Nontender without deformity or crepitance. No flank tenderness. NEURO: AOx3. SKIN: No rash or erythema of visible areas Initial Vital Signs Initial Vital Signs: Vital Signs Temperature 97.5 F L 07/14/22 13:56 Pulse Rate 94 H 07/14/22 13:56 Respiratory Rate 18 07/14/22 13:56 Blood Pressure 128/91 H 07/14/22 13:56 Pulse Oximetry 97 07/14/22 13:56 Oxygen Delivery Method 07/14/22 13:56 <Lenora Wesley DO - Last Filed: 07/19/22 07:21> Initial Vital Signs Initial Vital Signs: Vital Signs Temperature 97.5 F L 07/14/22 13:56 Pulse Rate 94 H 07/14/22 13:56 Respiratory Rate 18 07/14/22 13:56 Blood Pressure 128/91 H 07/14/22 13:56 Pulse Oximetry 97 07/14/22 13:56 Oxygen Delivery Method 07/14/22 13:56 Course <Timo Nguyen PA-C - Last Filed: 07/14/22 15:40> Orders Ordered: Discontinued Medications Ketorolac Tromethamine (Ketorolac 30 Mg/Ml Vial) 15 mg IM NOW ONE Stop: 07/14/22 15:34 Last Admin: 07/14/22 15:43 Dose: 15 mg Documented By: DERRELL Vital Signs Vital signs: Vital Signs - 8 hr 07/14/22 13:56 Temperature 97.5 F L Pulse Rate 94 H Respiratory Rate 18 Blood Pressure 128/91 H Pulse Oximetry 97 Oxygen Delivery Method Room Air <Lenora Wesley DO - Last Filed: 07/19/22 07:21> Orders Ordered: Discontinued Medications Ketorolac Tromethamine (Ketorolac 30 Mg/Ml Vial) 15 mg IM NOW ONE Stop: 07/14/22 15:34 Last Admin: 07/14/22 15:43 Dose: 15 mg Documented By: DERRELL Vital Signs Vital signs: Vital Signs - 8 hr 07/14/22 13:56 Temperature 97.5 F L Pulse Rate 94 H Respiratory Rate 18 Blood Pressure 128/91 H Pulse Oximetry 97 Oxygen Delivery Method Room Air MDM - Back Pain/Injury <Timo Nguyen PA-C - Last Filed: 07/14/22 15:40> MDM Narrative Medical decision making narrative: This is a 71-year-old male presents emergency department with suspected sciatica. States it feels very similar to a longstanding history he has on the left side. Denies any concerning symptoms such as saddle paresthesia, urinary bowel incontinence, or other concerns of central spinal cord compromise. Patient was given IM Toradol here in the emergency department and a prescription for muscle relaxants. Recommended he follow-up with Dr. Damon outpatient if symptoms continue as he has an established patient of his. Discharge Plan Departure Patient Disposition: Home Clinical Impression: Sciatica Instructions: DI for Sciatica Activity Restrictions/Additional Instructions: Thank you for coming to the [facility] Emergency Department today. From the symptoms your describing it seems very similar to the sciatica you have had in the past. The Toradol giving you today should help. The muscle relaxant should also help. Please take as as prescribed. You may follow-up with the Dr. Damon this clinic if the symptoms continue as you are a established patient of his. I hope you feel better soon. Prescriptions: New cyclobenzaprine 10 mg tablet 10 mg PO BEDTIME PRN (Reason: muscle spasm) Qty: 14 0RF No Action aspirin 81 MG tablet,delayed release (DR/EC) 81 mg PO QDAY Qty: 0 CA PANTOTHENATE/FOLIC ACID/VIT (MULTIVITAMIN) 1 tab PO QDAY Qty: 0 atorvastatin [Lipitor] 10 MG tablet 10 mg PO DAILY Qty: 0 chlorthalidone 25 MG tablet 10 mg PO [facility] Qty: 0 duloxetine [Cymbalta] 60 MG capsule,delayed release(DR/EC) 60 mg PO [facility] Qty: 0 finasteride 5 MG tablet 5 mg PO [facility] Qty: 0 tamsulosin [Flomax] 0.4 MG capsule,extended release 24hr 0.4 mg PO BID Qty: 0 Visine Tears 15 ML drops 1 drp OU BID Qty: 0 methocarbamol 500 mg Tablet 500 mg PO PRN PRN (Reason: Muscle Spasm) meloxicam 15 mg Tablet 15 mg PO DAILY allopurinol 100 mg Tablet 200 mg PO BID amlodipine 10 mg Tablet 10 mg PO DAILY rosuvastatin 5 mg Tablet 5 mg PO DAILY potassium chloride 20 mEq Tablet Extended Release 20 meq PO DAILY docusate sodium 100 mg Capsule 100 mg PO BID PRN (Reason: Constipation from narcotic pain meds) Qty: 20 0RF hydrocodone-acetaminophen 10-325 mg Tablet 1 tab PO Q4HR MDD Max 6 tabs per day PRN (Reason: Pain, Moderate (4-6)) Qty: 42 0RF hydroxyzine pamoate 25 mg Capsule 25 mg PO BEDTIME PRN (Reason: Muscle spasm/pain/nausea) Qty: 14 0RF tramadol 50 mg tablet 50 mg PO DAILY PRN (Reason: pain) Qty: 14 0RF diclofenac sodium [Voltaren Arthritis Pain] 1 % gel 2 g topical QID PRN (Reason: pain, swelling) Qty: 100 0RF Rx Instructions: apply to single knee Referrals: Julieth Frias MD [Primary Care Provider] - Visit Report Forms: Patient Portal/API <Lenora Wesley DO - Last Filed: 07/19/22 07:21> Cosign ED Attending Jessicaature Attestation: I was immediately available in the department for consultation. Documentation has been reviewed. I agree with assessment and plan.
[2022-07-14 15:40] VITALS: BP 146/86; PULSE 80; RESP 17; O2SAT 97
[2022-07-14] MEDS: KETOROLAC 30 MG/ML VIAL 15 MG IM (15:43)
--- NOTE | 2022-07-14 16:19 | PC.NURSE ---
Addendum entered by Gaviota Abraham R.N. 07/14/22 16:21: by GARCIA. Original Note: first contact with patient is discharge. back assessment done
== END 2022-07-14 16:25 | disposition home or self-care (01) ==
PROVIDERS: Emergency Provider Physician Assistant Medical
DX: M54.31 Sciatica, right side (principal)
CPT/HCPCS: 96372; 99283; J1885

== ENCOUNTER 2022-08-17 15:53 | Emergency (ER) | payer OTHER, SELFPAY ==
[2022-01-06 14:00] VITALS: BMI 39.1
[2022-08-17 15:57] VITALS: BP 116/87; PULSE 117; RESP 20; TEMP 36.4; O2SAT 98; BMI 26.1
[2022-08-17 16:18] LABS: Add Manual Diff / Slide Review NO; Basophils Absolute Auto 100 /uL (0-100); Basophils Percent Auto 1.2 % (0-2); Eosinophils Absolute Auto 100 /uL (0-450); Eosinophils Percent Auto 1.6 % (2-4); Hematocrit 43.4 % (41-53); Hemoglobin 14.9 g/dL (13.5-17.5); Lymphocytes Absolute Auto 1500 /uL (1100-4500); Lymphocytes Percent Auto 22.3 % (25-40); Mean Corpuscular HGB Conc 34.4 % (30-36); Mean Corpuscular Hemoglobin 34.3 PG (26-34); Mean Corpuscular Volume 99.9 fL (80-100); Monocytes Absolute Auto 600 /uL (0-900); Neutrophils Absolute Auto 4200 /uL (1500-7000); Neutrophils Percent Auto 64.9 % (50-75); Platelet Count 147 X10^3/uL (150-400); Red Blood Cell Count 4.35 X10^6/uL (4.5-5.9); Red Cell Distribution Width 13.8 % (11.6-14.8); White Blood Cell Count 6.5 X10^3/uL (4.5-11.0)
[2022-08-17 16:28] LABS: INR 1.2 (0.9-1.3); Prothrombin Time 13.6 SECONDS (10.1-12.7)
[2022-08-17 16:31] LABS: PTT Partial Thromboplastin Tim 29 SECONDS (26-36)
[2022-08-17 16:33] LABS: Alanine Aminotransferase 28 IU/L (<50); Albumin 4.1 g/dL (3.5-5.0); Albumin Globulin Ratio 1.3 (1.0-2.8); Alkaline Phosphatase 77 U/L (38-126); Aspartate Aminotransferase 27 IU/L (17-59); BUN Creatinine Ratio 23.4 (6-22); Bilirubin Total 0.8 mg/dL (0.2-1.3); Blood Urea Nitrogen 22 mg/dL (9-20); Calcium 9.4 mg/dL (8.4-10.2); Carbon Dioxide 23 mmol/L (22-32); Chloride 108 mmol/L (98-107); Creatine Kinase 56 U/L (55-170); Estimated Glomerular Filt Rate > 60 mL/min (>60); Globulin 3.2 g/dL (1.7-4.1); Glucose 105 mg/dL (80-110); HEMOLYSIS < 15 (0-50); Magnesium 1.6 mg/dL (1.6-2.3); Sodium 142 mmol/L (137-145); Total Protein 7.3 g/dL (6.3-8.2)
[2022-08-17 16:44] LABS: Troponin I < 0.012 ng/mL (0.01-0.034)
[2022-08-17 18:12] VITALS: BP 152/92
[2022-08-17] MEDS: IBUPROFEN 400 MG TABLET 800 MG PO (18:13)
[2022-08-17] MEDS: ACETAMINOPHEN 325 MG TABLET 975 MG PO (18:14)
--- NOTE | 2022-08-17 19:58 | ED_ITS ---
HPI - General Adult <Xavier Ko PA-C - Last Filed: 08/24/22 20:37> General Chief complaint: Hypertension Stated complaint: STATES EXTREMELY HIGH BLOOD PRESSURE Time Seen by Provider: 08/17/22 17:14 Source: patient Mode of arrival: Ambulatory History of Present Illness HPI narrative: 71-year-old male with past medical history hypertension presents to the ED for elevated blood pressure. Patient [facility] 169/109 that he called in. Patient also endorses some intermittent headaches. Patient states that whenever he has elevated blood pressure, he gets a headache. Patient denies other symptoms including fevers, chills, chest pain, shortness of breath, nausea, vomiting, abdominal pain, flank pain, dysuria, diarrhea, lightheadedness, dizziness, syncope. Related Data Home Medications Medication Instructions Recorded Confirmed chlorthalidone 25 mg tablet 50 mg PO [facility] ##0 04/11/17 08/17/22 finasteride 5 mg tablet 5 mg PO [facility] ##0 04/11/17 08/17/22 allopurinol 100 mg tablet 400 mg PO DAILY 01/05/22 08/17/22 amlodipine 10 mg tablet 2.5 mg PO DAILY 01/05/22 08/17/22 potassium chloride 20 mEq 40 meq PO DAILY 01/05/22 08/17/22 tablet,extended release rosuvastatin 5 mg tablet 5 mg PO DAILY 01/05/22 08/17/22 docusate sodium 100 mg capsule 250 mg PO BID PRN Constipation 08/17/22 08/17/22 from narcotic pain meds fluticasone propionate 50 1 spray intranasal Q12H 08/17/22 08/17/22 mcg/actuation nasal spray,suspension losartan 50 mg tablet 50 mg PO BID 08/17/22 08/17/22 Allergies Allergy/AdvReac Type Severity Reaction Status Date / Time Iodinated Contrast Media Allergy Mild Hives Verified 07/14/22 13:56 Review of Systems <Xavier Ko PA-C - Last Filed: 08/24/22 20:37> Review of Systems ROS Unobtainable: All systems reviewed & are unremarkable except as noted in HPI and below Constitutional Constitutional: Denies chills, Denies fatigue, Denies fever(s), Denies frequent falls, Reports headache(s), Denies lethargy and Denies weakness Eyes Eyes: Denies change in vision, Denies eye discharge, Denies irritation and Denie s loss of vision ENT Ears, Nose, Mouth, and Throat: Denies change in voice, Denies dizziness, Reports headache(s), Denies neck pain, Denies sore throat and Denies throat swelling Cardiovascular Cardiovascular: Denies chest pain, Denies irregular heart rhythm, Denies lightheadedness, Denies palpitations, Denies dyspnea, Denies dyspnea on exertion and Denies orthopnea Respiratory Respiratory: Denies cough, Denies dyspnea, Denies dyspnea on exertion and Denies wheezing Gastrointestinal Gastrointestinal: Denies abdominal pain, Denies change in bowel habits, Denies diarrhea, Denies nausea and Denies vomiting Genitourinary Genitourinary: Denies hematuria, Denies flank pain, Denies urinary incontinence and Denies urinary urgency Musculoskeletal Musculoskeletal: Denies back pain, Denies muscle weakness, Denies neck pain, Denies numbness and Denies tingling Integumentary/Breasts Skin/Breast: Denies pruritus, Denies erythema, Denies rash and Denies wounds Neurologic Neurologic: Denies behavioral changes, Denies confusion, Denies dizziness, Denies frequent falls, Reports headache(s), Denies loss of vision, Denies numbness, Denies tingling and Denies weakness Psychiatric Psychiatric: Denies anxiety, Denies behavioral changes, Denies confusion, Denies depression, Denies homicidal ideation and Denies suicidal ideation Endocrine Endocrine: Denies fatigue, Denies flushing and Denies palpitations Hematologic/Lymphatic Hematologic/Lymphatic: Denies easy bruising Allergic/Immunologic Allergic/Immunologic: Denies urticaria, Denies throat swelling and Denies wheezing Patient History <Xavier Ko PA-C - Last Filed: 08/24/22 20:37> Medical History BACILIO treated with BiPAP Surgical History Hx of laminectomy (2018) S/P epidural steroid injection Social History household members: none Smoking Status: Never smoker alcohol intake: current Smoking Status: Never smoker alcohol intake frequency: holidays/special occasions only Substance Use Type: marijuana Exam <Xavier Ko PA-C - Last Filed: 08/24/22 20:37> Narrative Exam Narrative: Const General:?cooperative, healthy appearing and comfortable HENWY Head:?normal to inspection Ears:?hearing grossly normal bilaterally Nose:?external nose normal Face and sinus:?normal facial exam and sinuses nontender Mouth:?oral mucosae normal Throat:?posterior oropharynx normal Eyes General:?appearance normal, both eyes and all related structures Neck Neck:?normal visual inspection and no lymphadenopathy noted Resp Effort & Inspection:?normal respiratory effort Auscultation:?clear to auscultation bilaterally Cardio Rate:?regular rate Rhythm:?regular rhythm Neuro General:?patient alert, patient awake and patient oriented x3 Initial Vital Signs Initial Vital Signs: Vital Signs Temperature 97.5 F L 08/17/22 15:57 Pulse Rate 117 H 08/17/22 15:57 Respiratory Rate 20 08/17/22 15:57 Blood Pressure 116/87 08/17/22 15:57 Pulse Oximetry 98 08/17/22 15:57 Oxygen Delivery Method 08/17/22 15:57 <Vignesh Vega MD - Last Filed: 09/02/22 07:27> Initial Vital Signs Initial Vital Signs: Vital Signs Temperature 97.5 F L 08/17/22 15:57 Pulse Rate 117 H 08/17/22 15:57 Respiratory Rate 20 08/17/22 15:57 Blood Pressure 116/87 08/17/22 15:57 Pulse Oximetry 98 08/17/22 15:57 Oxygen Delivery Method 08/17/22 15:57 Course <Xavier Ko PA-C - Last Filed: 08/24/22 20:37> Orders Ordered: Discontinued Medications Acetaminophen (Acetaminophen 325 Mg Tablet) 975 mg PO NOW ONE Stop: 08/17/22 17:58 Last Admin: 08/17/22 18:14 Dose: 975 mg Documented By: YARELY Ibuprofen (Ibuprofen 400 Mg Tablet) 800 mg PO NOW ONE Stop: 08/17/22 17:58 Last Admin: 08/17/22 18:13 Dose: 800 mg Documented By: YARELY Vital Signs Vital signs: Vital Signs - 8 hr 08/17/22 15:57 08/17/22 18:12 Temperature 97.5 F L Pulse Rate 117 H Respiratory Rate 20 Blood Pressure 116/87 152/92 H Pulse Oximetry 98 Oxygen Delivery Method Room Air <Vignesh Vega MD - Last Filed: 09/02/22 07:27> Orders Ordered: Discontinued Medications Acetaminophen (Acetaminophen 325 Mg Tablet) 975 mg PO NOW ONE Stop: 08/17/22 17:58 Last Admin: 08/17/22 18:14 Dose: 975 mg Documented By: YARELY Ibuprofen (Ibuprofen 400 Mg Tablet) 800 mg PO NOW ONE Stop: 08/17/22 17:58 Last Admin: 08/17/22 18:13 Dose: 800 mg Documented By: YARELY Vital Signs Vital signs: Vital Signs - 8 hr 08/17/22 15:57 08/17/22 18:12 Temperature 97.5 F L Pulse Rate 117 H Respiratory Rate 20 Blood Pressure 116/87 152/92 H Pulse Oximetry 98 Oxygen Delivery Method Room Air Medical Decision Making <Xavier Ko PA-C - Last Filed: 08/24/22 20:37> Lab Data 08/17/22 16:03 08/17/22 16:03 Labs: Lab Results 08/17/22 08/17/22 08/17/22 Range/Units 16:03 16:03 16:03 WBC 6.5 (4.5-11.0) X10^3/uL RBC 4.35 L (4.5-5.9) X10^6/uL Hgb 14.9 (13.5-17.5) g/dL Hct 43.4 (41-53) % MCV 99.9 (80-100) fL MCH 34.3 H (26-34) PG MCHC 34.4 (30-36) % RDW 13.8 (11.6-14.8) % Plt Count 147 L (150-400) X10^3/uL Neut % (Auto) 64.9 (50-75) % Lymph % (Auto) 22.3 L (25-40) % [place] % (Auto) 10.0 (3-14) % Eos % (Auto) 1.6 L (2-4) % Baso % (Auto) 1.2 (0-2) % Neut # (Auto) 4200 (7205-4834) /uL Lymph # (Auto) 1500 (6434-0555) /uL [place] # (Auto) 600 (0-900) /uL Eos # (Auto) 100 (0-450) /uL Baso # (Auto) 100 (0-100) /uL PT 13.6 H (10.1-12.7) SECONDS INR 1.2 (0.9-1.3) APTT 29 (26-36) SECONDS Sodium 142 (137-145) mmol/L Potassium 4.0 (3.4-5.1) mmol/L Chloride 108 H (98-107) mmol/L Carbon Dioxide 23 (22-32) mmol/L BUN 22 H (9-20) mg/dL Creatinine 0.94 (0.66-1.25) mg/dL Estimated GFR > 60 (>60) mL/min BUN/Creatinine Ratio 23.4 H (6-22) Glucose 105 (80-110) mg/dL Calcium 9.4 (8.4-10.2) mg/dL Magnesium 1.6 (1.6-2.3) mg/dL Total Bilirubin 0.8 (0.2-1.3) mg/dL AST 27 (17-59) IU/L ALT 28 (<50) IU/L Alkaline Phosphatase 77 (38-126) U/L Total Creatine Kinase 56 (55-170) U/L CK-MB (CK-2) TNP CK-MB (CK-2) Rel Index TNP Troponin I < 0.012 (0.01-0.034) ng/mL Total Protein 7.3 (6.3-8.2) g/dL Albumin 4.1 (3.5-5.0) g/dL Globulin 3.2 (1.7-4.1) g/dL Albumin/Globulin Ratio 1.3 (1.0-2.8) MDM Narrative Medical decision making narrative: 71-year-old male with past medical history hypertension presents to the ED for elevated blood pressure. Patient's blood pressure on presentation in the ED is 116/87. Patient does not endorse any symptoms that indicate end-organ damage. Labs are within normal limits. Patient's blood pressure on recheck was 152/92, still qualifies as asymptomatic hypertension. Counseled patient that pain can cause blood pressure to go up, it is more likely that his headaches are causing his blood pressure to go up versus the other way around. Encouraged patient to measure his blood pressure twice daily, keep a log, see his PCP for re- evaluation of his medications. ED return precautions were discussed with patient. Patient verbalized understanding. Reviewed medical records: Yes <Vignesh Vega MD - Last Filed: 09/02/22 07:27> Lab Data Labs: Lab Results 08/17/22 08/17/22 08/17/22 Range/Units 16:03 16:03 16:03 WBC 6.5 (4.5-11.0) X10^3/uL RBC 4.35 L (4.5-5.9) X10^6/uL Hgb 14.9 (13.5-17.5) g/dL Hct 43.4 (41-53) % MCV 99.9 (80-100) fL MCH 34.3 H (26-34) PG MCHC 34.4 (30-36) % RDW 13.8 (11.6-14.8) % Plt Count 147 L (150-400) X10^3/uL Neut % (Auto) 64.9 (50-75) % Lymph % (Auto) 22.3 L (25-40) % [place] % (Auto) 10.0 (3-14) % Eos % (Auto) 1.6 L (2-4) % Baso % (Auto) 1.2 (0-2) % Neut # (Auto) 4200 (6256-5170) /uL Lymph # (Auto) 1500 (5992-5853) /uL [place] # (Auto) 600 (0-900) /uL Eos # (Auto) 100 (0-450) /uL Baso # (Auto) 100 (0-100) /uL PT 13.6 H (10.1-12.7) SECONDS INR 1.2 (0.9-1.3) APTT 29 (26-36) SECONDS Sodium 142 (137-145) mmol/L Potassium 4.0 (3.4-5.1) mmol/L Chloride 108 H (98-107) mmol/L Carbon Dioxide 23 (22-32) mmol/L BUN 22 H (9-20) mg/dL Creatinine 0.94 (0.66-1.25) mg/dL Estimated GFR > 60 (>60) mL/min BUN/Creatinine Ratio 23.4 H (6-22) Glucose 105 (80-110) mg/dL Calcium 9.4 (8.4-10.2) mg/dL Magnesium 1.6 (1.6-2.3) mg/dL Total Bilirubin 0.8 (0.2-1.3) mg/dL AST 27 (17-59) IU/L ALT 28 (<50) IU/L Alkaline Phosphatase 77 (38-126) U/L Total Creatine Kinase 56 (55-170) U/L CK-MB (CK-2) TNP CK-MB (CK-2) Rel Index TNP Troponin I < 0.012 (0.01-0.034) ng/mL Total Protein 7.3 (6.3-8.2) g/dL Albumin 4.1 (3.5-5.0) g/dL Globulin 3.2 (1.7-4.1) g/dL Albumin/Globulin Ratio 1.3 (1.0-2.8) Discharge Plan Departure Patient Disposition: Home Clinical Impression: BP (high blood pressure) Instructions: DI for High Blood Pressure Activity Restrictions/Additional Instructions: You were evaluated in the ED today for high blood pressure. Your blood pressure in the ED was 116/87, which is normal. You also mentioned that you had intermittent headaches as well as sciatic nerve pain. It is very common for blood pressures to get elevated when you are in pain. You are being given Tylenol and ibuprofen for your headache today. Given that your sciatic nerve pain is not adequately controlled, you are being referred to Dr. Gonzales for pain management. You may schedule an appointment with him at [phone]. Please continue to take your blood pressure is daily at home, follow-up with your primary care provider with your readings. Return to the ED if your symptoms worsen, you experience numbness, tingling, weakness. Prescriptions: No Action chlorthalidone 25 MG tablet 50 mg PO [facility] Qty: 0 finasteride 5 MG tablet 5 mg PO [facility] Qty: 0 allopurinol 100 mg Tablet 400 mg PO DAILY amlodipine 10 mg Tablet 2.5 mg PO DAILY rosuvastatin 5 mg Tablet 5 mg PO DAILY potassium chloride 20 mEq Tablet Extended Release 40 meq PO DAILY losartan 50 mg Tablet 50 mg PO BID fluticasone propionate 50 mcg/actuation [place],Suspension 1 spray INTRANASAL Q12H Rx Instructions: administer into each nostril docusate sodium 100 mg capsule 250 mg PO BID PRN (Reason: Constipation from narcotic pain meds) Referrals: Julieth Frias MD [Primary Care Provider] - Stand Alone Forms: Patient Portal/API <Vignesh Vega MD - Last Filed: 09/02/22 07:27> Cosign ED Attending Cosignature Attestation: I was immediately available in the department for consultation. ?This documentation has been reviewed and I agree with assessment and plan. Supervised by Vignesh Vega MD
== END 2022-08-17 18:14 | disposition home or self-care (01) ==
PROVIDERS: Emergency Medicine; Emergency Provider Student in an Organized Health Care Education/Training Program
DX: I10 Essential (primary) hypertension (principal); R07.9 Chest pain, unspecified
CPT/HCPCS: 36415; 80053; 82550; 83735; 84484; 85025; 85610; 85730; 93005; 99283; 99284

== ENCOUNTER → 2022-08-29 07:35 | Outpatient (CLI) | payer OTHER, SELFPAY ==
[2022-01-06 14:00] VITALS: BMI 39.1
--- NOTE | 2022-08-29 07:38 | DI.MRI.S_ITS ---
PROCEDURE: MR LUMBAR SPINE WO CON INDICATIONS: lumbago with sciatica right side TECHNIQUE: Noncontrast sagittal T1 spin echo and T2 fast echo, sagittal STIR, and T2 fast spin echo through the lumbar spine. In cases with scoliosis, additional coronal T2 fast spin echo may be performed. COMPARISON: [facility], MR, MR LUMBAR SPINE WO CON, 07/20/2021, 14:17. FINDINGS: Image quality: Excellent. Alignment and Curvature: Posterior fusion at L3-4 is present. There is trace retrolisthesis of L2 on L3, L5 on S1, unchanged. Bone Marrow: Marrow is of normal overall signal. Reactive endplate changes are present at L3-4. No acute vertebral body compression fractures. Spinal Cord: Conus medullaris terminates at the L1 level. Visualized cord demonstrates normal signal and size. Paraspinous Soft Tissues: No paravertebral masses. Discs: Multilevel overall moderate disc desiccation is present. L1-L2: Mild disc bulge with mild spinal stenosis. [id number] right foraminal narrowing without nerve root compression. Facet and ligamentum flavum hypertrophy are present. No interval change. L2-L3: Mild disc bulge with [id number] spinal stenosis. Moderate bilateral foraminal narrowing, left greater than right with facet and ligamentum flavum hypertrophy. Appearance is stable. L3-L4: Mild disc bulge with mild spinal stenosis. Moderate to severe left and moderate right foraminal narrowing with mild compression of the exiting left L3 nerve root. Appearance is stable. L4-L5: Mild disc bulge with mild spinal stenosis. Moderate right and mild left foraminal narrowing with facet and ligamentum flavum hypertrophy. No interval change. L5-S1: Mild disc bulge with [id number] spinal stenosis. Severe bilateral foraminal narrowing with compression of the exiting nerve roots bilaterally, right greater than left. Facet hypertrophy is present. No interval change. IMPRESSION: Postsurgical fusion at L3-4 stable. Multilevel degenerative changes stable compared to prior exam. Multilevel foraminal narrowing most severe at L3-4 and L5-S1 secondary to facet arthropathy. Multilevel spinal stenosis most prominent L2-3 and L5-S1 secondary to disc bulge with contributing effect of facet/ligamentum flavum arthropathy. Dictated by: Yanira Jesus M.D. on 08/30/2022 at 15:14 Approved by: Yanira Jesus M.D. on 08/30/2022 at 15:20
== END ==
PROVIDERS: Referring Provider Orthopaedic Surgery Orthopaedic Surgery of the Spine; Visit Provider Orthopaedic Surgery Orthopaedic Surgery of the Spine
DX: M48.061 Spinal stenosis, lumbar region without neurogenic claudication (principal); M48.07 Spinal stenosis, lumbosacral region; M51.16 Intervertebral disc disorders with radiculopathy, lumbar region; M51.17 Intervertebral disc disorders with radiculopathy, lumbosacral region; M47.26 Other spondylosis with radiculopathy, lumbar region; M47.27 Other spondylosis with radiculopathy, lumbosacral region; Z98.1 Arthrodesis status
CPT/HCPCS: 72148

== ENCOUNTER 2023-03-18 06:11 | Day surgery (SDC) | payer OTHER, SELFPAY ==
[2022-01-06 14:00] VITALS: BMI 39.1
[2023-02-28 13:58] VITALS: BMI 34.9
[2023-03-18] VITALS (14 sets, daily range): BP systolic 108–146; BP diastolic 72–87; PULSE 65–88; RESP 12–19; TEMP 36.1–36.8; O2SAT 88–99; BMI 34.9
--- NOTE | 2023-03-18 06:00 | DI.RAD.S_ITS ---
PROCEDURE: XR KNEE LT 1TO2V INDICATIONS: left TKA TECHNIQUE: 2 view(s) of the knee acquired. COMPARISON: [facility], CR, XR KNEE LT 3V, 11/04/2021, 12:33. FINDINGS: Bones: Patient is status post knee joint arthroplasty. Hardware components are in expected positions. Visualized bony structures are intact. Soft tissues: Overlying postoperative changes are noted. IMPRESSION: Expected appearance post left knee arthroplasty. Dictated by: Claudia Brown M.D. on 03/18/2023 at 16:01 Approved by: Claudia Brown M.D. on 03/18/2023 at 16:02
[2023-03-18] MEDS: ACETAMINOPHEN 325 MG TABLET 975 MG PO (06:43)
[2023-03-18] MEDS: LACTATED RINGERS 1,000 ML 42 ML IV ×2 (07:22→09:11)
--- NOTE | 2023-03-18 07:39 | PM.PREOP ---
Pre-operative Note Interval Note History & Physical reviewed/Exam performed by Physician: Yes Changes to H&P: No
--- NOTE | 2023-03-18 07:41 | SUR.PREOP ---
Block start time [0738] . Monitoring initiated and maintained throughout procedure. Oxygen and medications given per anesthesiologist instructions. Patient remained stable throughout procedure, no adverse reactions noted. Block end time [0747].
--- NOTE | 2023-03-18 07:50 | P.OP_ITS ---
Operative Date/Time/Diagnoses Date of procedure: 03/18/23 Time of procedure: 07:50 Pre-op diagnosis: Left knee arthritis Post-op diagnosis: same Procedure & Clinicians Procedure: Total knee arthroplasty left CPT code 86776 BMI 37 Same procedure as scheduled: Yes Indications: Patient is a 72-year-old male with end-stage left knee arthritis. He has failed knee family engagement specialist braces anti-inflammatories and injections. He has been successful in weight loss decreasing his BMI to 37. He has been indicated for total knee arthroplasty as end-stage treatment for painful [id number] knee arthritis. The risks and benefits of the procedure have been discussed with the patient and given the opportunity to ask questions. The risks of surgery include but are not limited to infection, malunion, nonunion, persistence of pain, damage to nerves and blood vessels, posttraumatic arthritis, DVT, PE, cardiopulmonary complications and . The patient expressed a thorough understanding of the risks and benefits of surgery and has elected to proceed. Consent was signed. During the operation, the services of a physician surgical garment fitter were me dically indicated and necessary to provide the exposure of the operative site for the surgical procedure and to maintain the limb in a proper position to carry out the operation safely and efficiently. Without a qualified physician assistant surgery being present this would extended the operative procedure and made the procedure technically more difficult to perform. Surgeon: Julia Perez Javascript Ui Developer: Amarilys Fields Anesthesia Type: General and Peripheral nerve block Operative Notes Findings: End-stage left knee varus knee arthritis full-thickness cartilage loss Closure Type: primary Specimen(s): none sent Prosthetic devices, grafts, tissues, transplants, or devices: Eastman and nephew journey BCS II Femur cobalt chromium size 8 Tibia size 8 Poly 10 mm Patella 38 x 9 mm Estimated Blood Loss (mL): 50 Blood products transfused: none Tourniquet time (min): 90 Procedure in detail: Patient was seen in the preoperative area where the patient and site of surgery were identified in the operative knee was marked informed consent confirmed. This was the left knee. Patient received the appropriate preoperative antibiotics this was 3g of Ancef. And other preoperative medications and was taken to the operating room placed on operating table in the supine position. Spinal anesthetic were administered. The operative extremity was then prepped and draped in the standard sterile fashion with a nonsterile tourniquet high on the thigh. Patient was placed on the green foam bolsters. A lateral post was placed at the level of the proximal thigh /trochanter area as a lateral post. Formal time-out procedure was performed confirming the patient's side and site of surgery and administration of appropriate preoperative antibiotics and implants were in the room accounted for. All were in agreement. Patient received a preoperative dose of tranexamic acid and then a 2nd dose at tourniquet release Patient was prepped and draped in the standard sterile fashion and the foot was placed into the leg garcia. This was taken into high flexion and the incision was marked out over the anterior knee to the level of the medial tubercle tubercle. The Esmarch was then used for exsanguination and the tourniquet was inflated to 250 mmHg. Incision Was made through the skin and subcutaneous tissue in high flexion this was then brought down into 30? of flexion for the medial parapatellar arthrotomy. A marker pen was used to hank the arthrotomy s ite for later repair. Joint fluid was evacuated. The anterior osteophytes and soft tissues were removed. Routine medial release was initially made along the medial proximal tibia with Bovie. The patella was cut using the saw sized and prepped and then subluxed throughout the case and protected. The leg was then taken into extension and the patella was everted and the patella was cut to accommodate the patellar button. This was sized to a 38 mm button for a 9 mm thickness to recreate the original dimensions of the patella. Poly was removed and the protector replaced and the patella was subluxed and the knee was taken back up into flexion and attention was returned to the femur. Then the rotational landmarks of Whitesides line and the trans epicondylar axis were marked on the femur with electrocautery. Then the intramedullary guide for the femur was created. The distal femoral cut was made in 6? of valgus using the intramedullary guide with the cut setting on 2+ as the patient did have a preoperative flexion contracture. The ACL and PCL released. The proximal tibia was then cut using the intramedullary guide, taking 9 mm off the less involved side this was the lateral plateau. The Mohamud wing was used to check the slope through the guide. Second pass was made through the tibial cut guide with the saw after the cut tibia was removed plane down about 1 more mm and further smooth then the resection surface. In extension remainders of the medial and lateral menisci were removed. The extension flexion gaps were then checked using both the flexion extension blocks. And was selected for a 10 mm poly femur was then sized and the rotation set using the posterior condyle referencing 3? of external rotation. This measured a size 8. Cut block was then placed and the anterior, posterior and chamfer cuts were then made. The posterior osteophytes and soft tissues were then removed. Then in extension the posterior capsule was injected with a mixture of 40 mL of 0.25% Marcaine and 20 mL of Exparel care to avoid excessive injection posterior laterally. The remainder of this was saved for the capsule and subcutaneous tissue and placed during cement curing. Attention was then returned to the tibia and this was prepared with the rotation set by the extramedullary guide. Lined up with the tibial crest and the 2nd toe. The tibial trial was then pinned in place and the trial femoral components were placed. Then the intercondylar notch was cut through the femoral trial to create the box this was done with the distal than the proximal drill and then the box cut distally and then proximally. Next the insert was placed and the trial poly placed. This was stable in flexion and extension and there was a 0- 135 degree range of motion. The tibia was then finished with the drill and flange cuts and then this was removed. All trials were removed. The wound and bone was irrigated with pulsatile lavage. This was then dried with a sponge. The components were verified and opened and the cement was mixed. Cement was applied to the components and then to the bone then the tibia was cemented in place 1st followed by the femur then the patella. Excess cement was removed. With care looking around the back of the knee. Remainder of the injection was injected around the capsule. trial poly was placed back in the leg was placed into extension for the patellar cementing. After this was cured approximately 15 minutes later this was then irrigated out and the final poly was placed. This was a 10 mm poly. The tourniquet was released hemostasis was achieved. Final 1 g of tranexamic acid was given IV at the time of tourniquet release. The capsule was closed with 1. Ethibond suture. Subcutaneous layer was closed with 3-0 Vicryl suture. Skin was closed with a running V lock suture Stratafix Monocryl type suture and Dermabond. An Aquacel dressing was placed. An Esequiel wrap was applied. Anesthetic was terminated the patient was woken from anesthesia and taken to recovery room in good condition. There no immediate complications from this procedure. The patient will be maintained on a standard total knee replacement protocol with weight-bearing as tolerated. Complications: none Post-operative Condition: stable Disposition: PACU Plan for aftercare: Weightbear as tolerated, range of motion. Work with physical therapy. Discharge when safe home either later today or tomorrow. Aspirin 81 mg b.i.d. for DVT prophylaxis.
[2023-03-18] MEDS: CEFAZOLIN VIAL 3 GM in SODIUM CHLORIDE 0.9% 100 ML IV (08:10)
[2023-03-18] MEDS: TRANEXAMIC ACID 1,000 MG VIAL 2000 MG INJ ×2 (08:16→09:54)
--- NOTE | 2023-03-18 08:34 | SUR.OPER ---
Supine on padded OR bed. Pillow under head, arms secured on padded armboards, gel pads to support wrists bilaterally, arms <90 degree abduction. Safety belt, padded, across torso. Non-operative leg secured with tape over blanket over lower leg. Operative leg, draped to field and secured in Arnold positioner. Foam padded brace at thigh of operative leg.
[2023-03-18] MEDS: BUPIVACAINE LIPOSOME 266 MG/20 ML VIAL INJ (09:00)
[2023-03-18] MEDS: BUPIVACAINE 0.25% (PF) 60 ML, EPINEPHrine 0.3 MG INJ (09:20)
[2023-03-18] MEDS: ONDANSETRON 4 MG/2 ML INJ IV (10:45)
[2023-03-18] MEDS: HYDROCODONE/ACET 5/325 TABLET 1 TAB PO (10:45)
[2023-03-18] MEDS: hydrOXYzine pamoate 25 MG CAPSULE PO (10:46)
[2023-03-18] MEDS: fentaNYL 100 MCG/2 ML INJ IV ×2 (10:46→10:51)
[2023-03-18] MEDS: KETOROLAC 30 MG/ML VIAL IV (11:13)
[2023-03-18] MEDS: OXYCODONE IR 5 MG TABLET PO (11:36)
[2023-03-18] MEDS: HYDROMORPHONE 1 MG INJ IV ×2 (11:37→11:47)
--- NOTE | 2023-03-18 11:43 | SUR.PHASEII ---
Patient moved to phase 2 recovery but still c/o pain of 9/10; wincing in pain with left knee; no long-acting medication given by previous nurse while in phase one. Placed patient back on monitor and continuous pulse ox and administered Dilaudid 1 mg IV and oxycodone 5 mg PO; gingerale given. Continue to monitor and will reassess prior to discharge from hospital.
--- NOTE | 2023-03-18 14:05 | SUR.PHASEII ---
Patient able to ambulate with the walker to the bathroom to void. Tolerated well. Pain 6/10 with ambulation. All discharge instructions reviewed with patient. Patient states that he never saw physical therapy prior to surgery. This nurse called [facility] to inquire. Per [facility] office, patient was sent referral to [facility] in [place]. This nurse called [facility] to inquire. Office will call patient on Tuesday to arrange physical therapy. Provided patient with phone number and contact info. home with friend in stable condition.
== END 2023-03-18 14:03 | disposition home or self-care (01) ==
PROVIDERS: PCP Physician Assistant; Referring Provider Physician Assistant; Visit Provider Orthopaedic Surgery Foot and Ankle Surgery
PROC: 0SRD0JZ Replacement of Left Knee Joint with Synthetic Substitute, Open Approach (ICD-10-PCS; CPT 27447; principal; 2023-03-18 07:45)
DX: M17.12 Unilateral primary osteoarthritis, left knee (principal); M21.162 Varus deformity, not elsewhere classified, left knee; G89.18 Other acute postprocedural pain
CPT/HCPCS: 27447; 64450; 73560; C1776; C9290; J0171; J0690; J1170; J1885; J2250; J2405; J2704; J3010; J3490

== ENCOUNTER 2023-03-19 10:58 | Emergency (ER) | payer OTHER, SELFPAY ==
[2022-01-06 14:00] VITALS: BMI 39.1
--- NOTE | 2023-03-19 11:03 | ED_ITS ---
HPI - General Adult General Chief complaint: Extremity Problem,Nontraumatic Stated complaint: Knee pain/swelling Time Seen by Provider: 03/19/23 11:02 History of Present Illness HPI narrative: 72-year-old male nonsmoker with history of hypertension and hyperlipidemia presents by EMS for evaluation of severe left knee pain and swelling. He was picked up from home and had a left total knee performed at our facility yesterday. He has been taking his medications as directed, denies any overuse or falls, twists or injury and complains of severe pain. Denies any numbness or tingling. He is otherwise well and free of complaint. He denies chest pain or shortness of breath Related Data Home Medications Medication Instructions Recorded Confirmed chlorthalidone 25 mg tablet 25 mg PO [facility] ##0 04/11/17 03/18/23 finasteride 5 mg tablet 5 mg PO DAILY ##0 04/11/17 03/18/23 allopurinol 100 mg tablet 400 mg PO DAILY 01/05/22 03/18/23 amlodipine 10 mg tablet 2.5 mg PO DAILY 01/05/22 03/18/23 potassium chloride 20 mEq 20 meq PO DAILY 01/05/22 03/18/23 tablet,extended release rosuvastatin 5 mg tablet 2.5 mg PO DAILY 01/05/22 03/18/23 docusate sodium 100 mg capsule 250 mg PO BID PRN Constipation 08/17/22 03/18/23 from narcotic pain meds losartan 50 mg tablet 50 mg PO ONCE PM 08/17/22 03/18/23 gabapentin 300 mg capsule 600 mg PO BID 02/28/23 03/18/23 methocarbamol 500 mg tablet 1,000 mg PO BID 02/28/23 03/18/23 solifenacin 10 mg tablet 10 mg PO DAILY 02/28/23 03/18/23 tamsulosin 0.4 mg capsule 0.4 mg PO DAILY 02/28/23 03/18/23 Previous Rx's Medication Instructions Recorded aspirin 81 mg tablet,delayed 81 mg PO BID #60 tabs 03/18/23 release ondansetron 4 mg disintegrating 4 mg PO Q8H PRN nausea and 03/18/23 tablet vomiting #5 tabs oxycodone 5 mg tablet 5 mg PO Q4H PRN pain #40 tabs 08/25/23 ketorolac 10 mg tablet 10 mg PO Q6H PRN pain #14 tabs 03/19/23 Allergies Allergy/AdvReac Type Severity Reaction Status Date / Time Iodinated Contrast Media Allergy Mild Hives Verified 03/18/23 06:42 Review of Systems Review of Systems Narrative: GENERAL: Denies chills, fatigue, malaise, fever, sweats. HEENT: Denies sinus pain, ear pain, sore throat, difficulty swallowing, dizziness. RESPIRATORY: Denies dyspnea, cough, wheezing, hemoptysis, sputum. CARDIOVASCULAR: Denies chest pain, palpitations, orthopnea, edema, GASTROINTESTINAL: Denies nausea, vomiting, abdominal pain, diarrhea, constipation, melena. : Denies dysuria, frequency, incontinence, hematuria, urinary retention. MUSCULOSKELETAL: See HPI SKIN: Denies rash, skin lesions, or other NEUROLOGIC: Denies weakness, headache, numbness, change in speech, confusion, seizures, incoordination. PSYCHIATRIC: No concerning psychosocial issues. 12 point review of systems is negative except for those stated above Patient History Medical History History of colon cancer BACILIO treated with BiPAP Surgical History H/O colectomy History of spinal fusion Hx of laminectomy (2018) S/P epidural steroid injection Social History household members: none Smoking Status: Never smoker alcohol intake: current Smoking Status: Never smoker alcohol intake frequency: holidays/special occasions only Substance Use Type: does not use Exam Narrative Exam Narrative: GEN: AOx3 and in mild distress EYES: Pupils are equal, round, and reactive to light and accommodation. Extraoccular muscles are intact bilaterally. There is no subconjunctival hemorrhage or exudate. CHEST: Lungs are clear to auscultation bilaterally and free of wheezes, rales, or rhonchi. Heart rate is regular rhythm, there are no murmurs, clicks, rubs, or gallops. There is no chest wall tenderness. ABD: Abdomen is soft and nontender. There is no guarding or rebound. Bowel sounds are normal in all 4 quadrants. There is no mass or organomegaly. EXT: Left knee with moderate swelling and ecchymosis, minimal drainage from surgical site, no redness, compartments soft, sensation and cap refill intact. Expected post surgical presentation SKIN: Warm, pink, and dry. No erythema or rash Initial Vital Signs Initial Vital Signs: Vital Signs Temperature 97.8 F 03/19/23 11:08 Pulse Rate 94 H 03/19/23 11:08 Respiratory Rate 18 03/19/23 11:08 Blood Pressure 121/64 03/19/23 11:08 Pulse Oximetry 94 03/19/23 11:08 Oxygen Delivery Method Room Air 03/19/23 11:08 Course Orders Ordered: Discontinued Medications Hydromorphone HCl (Hydromorphone 0.5 Mg Inj) 0.5 mg IV NOW ONE Stop: 03/19/23 11:04 Last Admin: 03/19/23 11:46 Dose: 0.5 mg Documented By: JENNIFER Ketorolac Tromethamine (Ketorolac 30 Mg/Ml Vial) 15 mg IV NOW ONE Stop: 03/19/23 11:57 Last Admin: 03/19/23 12:21 Dose: 15 mg Documented By: TONI Medical Decision Making Lab Data 03/19/23 11:40 Labs: Lab Results 03/19/23 Range/Units 11:40 WBC 8.0 (4.5-11.0) X10^3/uL RBC 3.42 L (4.5-5.9) X10^6/uL Hgb 11.9 L (13.5-17.5) g/dL Hct 34.1 L (41-53) % MCV 99.7 (80-100) fL MCH 34.8 H (26-34) PG MCHC 34.9 (30-36) % RDW 14.4 (11.6-14.8) % Plt Count 121 L (150-400) X10^3/uL Neut % (Auto) 77.8 H (50-75) % Lymph % (Auto) 9.8 L (25-40) % Winn % (Auto) 11.0 (3-14) % Eos % (Auto) 0.8 L (2-4) % Baso % (Auto) 0.6 (0-2) % Neut # (Auto) 6300 (0501-1020) /uL Lymph # (Auto) 800 L (6143-4520) /uL Winn # (Auto) 900 (0-900) /uL Eos # (Auto) 100 (0-450) /uL Baso # (Auto) 0 (0-100) /uL MDM Narrative Medical decision making narrative: [72] year old patient presents with left knee pain, 1 day postop Multiple etiologies for patient's symptoms considered including, but not limited to: [Hematoma versus expected postsurgical pain, versus other] Prior Charts reviewed in our EMR Primary Historian: patient Labs reviewed and interpreted by myself: Imaging reviewed: no acute change on knee xray Consultations: discussed with Dr. Perez (Ortho). SHe is patients surgeon, talked to patient herself. Reviewed imaging. Agrees likely consequence of block wearing off, and not taking enough previously prescribed meds. Patient's symptoms improved over duration of stay with above-stated therapies. Findings and discharge diagnosis discussed with patient/family followed by verbalization of understanding Return precautions discussed with patient/family whom verbalize understanding of diagnosis and plan Discharge Plan Departure Patient Disposition: Home Clinical Impression: Pain at surgical site Instructions: DI for Knee Pain Activity Restrictions/Additional Instructions: *You have been diagnosed with [post surgical pain] *What to do: *Please continue to take your regular medications as directed. [x ] New medication prescriptions sent to your pharmacy: [ [facility]] [ ] New medication written as a paper prescription [ ] No new medications given *Please follow up with your primary care provider in 2-3 days, call for an appointment. Let them know you were seen in the Emergency Department and that we ask that you be seen in follow up. We will electronically transmit a record of today's note if your PCP is in our system *The new prescription is a stronger anti-inflammatory and is intended to be taken in lieu of Motrin *Return to Emergency Department if you should have any new, worsening or concerning symptoms, such as [fever greater than 101 F, shaking chills, worsening pain, persistent vomiting or other bothersome symptoms] Prescriptions: New ketorolac 10 mg tablet 10 mg PO Q6H PRN (Reason: pain) Qty: 14 0RF No Action chlorthalidone 25 MG tablet 25 mg PO [facility] Qty: 0 finasteride 5 MG tablet 5 mg PO DAILY Qty: 0 allopurinol 100 mg Tablet 400 mg PO DAILY amlodipine 10 mg Tablet 2.5 mg PO DAILY rosuvastatin 5 mg Tablet 2.5 mg PO DAILY potassium chloride 20 mEq Tablet Extended Release 20 meq PO DAILY losartan 50 mg Tablet 50 mg PO ONCE PM docusate sodium 100 mg capsule 250 mg PO BID PRN (Reason: Constipation from narcotic pain meds) methocarbamol 500 mg Tablet 1,000 mg PO BID tamsulosin 0.4 mg Capsule 0.4 mg PO DAILY gabapentin 300 mg Capsule 600 mg PO BID solifenacin 10 mg Tablet 10 mg PO DAILY oxycodone 5 mg tablet 5 mg PO Q4H PRN (Reason: pain) Qty: 40 0RF Rx Instructions: postop exempt ondansetron 4 mg tablet,disintegrating 4 mg PO Q8H PRN (Reason: nausea and vomiting) Qty: 5 1RF aspirin 81 mg tablet,delayed release (DR/EC) 81 mg PO BID Qty: 60 0RF Referrals: Dilshad Barton PA-C [Primary Care Provider] - Stand Alone Forms: Patient Portal/API
--- NOTE | 2023-03-19 11:03 | DI.RAD.S_ITS ---
PROCEDURE: XR KNEE LT 3V INDICATIONS: severe pain, L TKA yesterday TECHNIQUE: 3 views of the knee were acquired. COMPARISON: [facility], JOSE, XR KNEE LT 1TO2V, 03/18/2023, 10:35. [facility], JOSE, XR KNEE LT 3V, 11/04/2021, 12:33. FINDINGS: Bones: Status post left total knee arthroplasty. Hardware is in expected position. No significant change compared to prior. No suspicious bony lesions. Soft tissues: Overlying postoperative changes are seen. IMPRESSION: Stable postsurgical changes from left total knee arthroplasty. Dictated by: Carmelo Andres M.D. on 03/19/2023 at 11:52 Approved by: Carmelo Andres M.D. on 03/19/2023 at 11:53
[2023-03-19 11:08] VITALS: BP 121/64; PULSE 94; RESP 18; TEMP 36.6; O2SAT 94; BMI 35.4
[2023-03-19 11:43] LABS: Add Manual Diff / Slide Review NO; Basophils Absolute Auto 0 /uL (0-100); Basophils Percent Auto 0.6 % (0-2); Eosinophils Absolute Auto 100 /uL (0-450); Eosinophils Percent Auto 0.8 % (2-4); Hematocrit 34.1 % (41-53); Hemoglobin 11.9 g/dL (13.5-17.5); Lymphocytes Absolute Auto 800 /uL (1100-4500); Lymphocytes Percent Auto 9.8 % (25-40); Mean Corpuscular HGB Conc 34.9 % (30-36); Mean Corpuscular Hemoglobin 34.8 PG (26-34); Mean Corpuscular Volume 99.7 fL (80-100); Monocytes Absolute Auto 900 /uL (0-900); Neutrophils Absolute Auto 6300 /uL (1500-7000); Neutrophils Percent Auto 77.8 % (50-75); Platelet Count 121 X10^3/uL (150-400); Red Blood Cell Count 3.42 X10^6/uL (4.5-5.9); Red Cell Distribution Width 14.4 % (11.6-14.8)
[2023-03-19] MEDS: HYDROMORPHONE 0.5 MG INJ IV (11:46)
[2023-03-19 11:51] VITALS: O2SAT 93
[2023-03-19] MEDS: KETOROLAC 30 MG/ML VIAL 15 MG IV (12:21)
== END 2023-03-19 13:07 | disposition home or self-care (01) ==
PROVIDERS: Emergency Provider Emergency Medicine; PCP Physician Assistant
DX: G89.18 Other acute postprocedural pain (principal); Z79.899 Other long term (current) drug therapy
CPT/HCPCS: 73562; 85025; 96374; 96375; 99284; J1170; J1885

== ENCOUNTER → 2023-04-01 14:54 | Outpatient (CLI) | payer OTHER, SELFPAY ==
[2022-01-06 14:00] VITALS: BMI 39.1
[2023-04-01 15:27] LABS: Add Manual Diff / Slide Review NO; Basophils Absolute Auto 100 /uL (0-100); Basophils Percent Auto 1.2 % (0-2); Eosinophils Absolute Auto 100 /uL (0-450); Eosinophils Percent Auto 3.2 % (2-4); Hematocrit 34.5 % (41-53); Hemoglobin 11.8 g/dL (13.5-17.5); Lymphocytes Absolute Auto 1400 /uL (1100-4500); Lymphocytes Percent Auto 29.6 % (25-40); Mean Corpuscular HGB Conc 34.3 % (30-36); Mean Corpuscular Hemoglobin 34.1 PG (26-34); Mean Corpuscular Volume 99.3 fL (80-100); Monocytes Absolute Auto 500 /uL (0-900); Monocytes Percent Auto 11.3 % (3-14); Neutrophils Absolute Auto 2500 /uL (1500-7000); Neutrophils Percent Auto 54.7 % (50-75); Platelet Count 277 X10^3/uL (150-400); Red Blood Cell Count 3.48 X10^6/uL (4.5-5.9); Red Cell Distribution Width 14.3 % (11.6-14.8); White Blood Cell Count 4.7 X10^3/uL (4.5-11.0)
[2023-04-01 15:49] LABS: Albumin 4.3 g/dL (3.5-5.0); BUN Creatinine Ratio 27.2 (6-22); Blood Urea Nitrogen 28 mg/dL (9-20); Calcium 9.2 mg/dL (8.4-10.2); Carbon Dioxide 29 mmol/L (22-32); Chloride 100 mmol/L (98-107); Estimated Glomerular Filt Rate > 60 mL/min (>60); Glucose 127 mg/dL (80-110); HEMOLYSIS < 15 (0-50); Phosphorous 3.4 mg/dL (2.3-3.7); Potassium 3.5 mmol/L (3.4-5.1); Sodium 140 mmol/L (137-145)
== END ==
PROVIDERS: PCP Physician Assistant; Referring Provider Orthopaedic Surgery Foot and Ankle Surgery; Visit Provider Orthopaedic Surgery Foot and Ankle Surgery
DX: Z96.652 Presence of left artificial knee joint (principal)
CPT/HCPCS: 36415; 80069; 85025

== ENCOUNTER → 2023-06-28 09:52 | Outpatient (CLI) | payer OTHER, SELFPAY ==
[2022-01-06 14:00] VITALS: BMI 39.1
[2023-06-28 10:47] LABS: Add Manual Diff / Slide Review NO; Basophils Absolute Auto 100 /uL (0-100); Basophils Percent Auto 1.2 % (0-2); Eosinophils Absolute Auto 100 /uL (0-450); Eosinophils Percent Auto 1.9 % (2-4); Hematocrit 42.9 % (41-53); Hemoglobin 14.9 g/dL (13.5-17.5); Lymphocytes Absolute Auto 1600 /uL (1100-4500); Lymphocytes Percent Auto 28.6 % (25-40); Mean Corpuscular HGB Conc 34.8 % (30-36); Mean Corpuscular Hemoglobin 33.8 PG (26-34); Mean Corpuscular Volume 97.1 fL (80-100); Monocytes Absolute Auto 700 /uL (0-900); Monocytes Percent Auto 11.9 % (3-14); Neutrophils Absolute Auto 3200 /uL (1500-7000); Neutrophils Percent Auto 56.4 % (50-75); Platelet Count 163 X10^3/uL (150-400); Red Blood Cell Count 4.42 X10^6/uL (4.5-5.9); Red Cell Distribution Width 14.3 % (11.6-14.8); White Blood Cell Count 5.7 X10^3/uL (4.5-11.0)
[2023-06-28 11:04] LABS: C-Reactive Protein Quant 0.6 mg/dL (<1.0)
[2023-06-28 11:16] LABS: Erythrocyte Sedimentation Rate 17 MM/HR (0-15)
== END ==
PROVIDERS: PCP Physician Assistant; Referring Provider Orthopaedic Surgery Foot and Ankle Surgery; Visit Provider Orthopaedic Surgery Foot and Ankle Surgery
DX: Z01.812 Encounter for preprocedural laboratory examination (principal); M25.562 Pain in left knee
CPT/HCPCS: 36415; 85025; 85651; 86140

== ENCOUNTER 2023-08-17 07:04 | Day surgery (SDC) | payer OTHER, SELFPAY ==
[2022-01-06 14:00] VITALS: BMI 39.1
[2023-08-10 13:02] VITALS: BMI 37.6
[2023-08-17] VITALS (9 sets, daily range): BP systolic 128–155; BP diastolic 74–98; PULSE 68–91; RESP 13–18; TEMP 36.1–36.7; O2SAT 95–98; BMI 37.6
[2023-08-17] MEDS: LACTATED RINGERS 1,000 ML 42 ML IV ×2 (08:09→12:30)
--- NOTE | 2023-08-17 09:32 | PM.PREOP ---
Pre-operative Note Interval Note History & Physical reviewed/Exam performed by Physician: Yes Changes to H&P: No
--- NOTE | 2023-08-17 11:12 | SUR.PREOP ---
Time out 1050. Block start time 1052 . Monitoring initiated and maintained throughout procedure. Oxygen and medications given by anesthesiologist. Patient remained stable throughout procedure, no adverse reactions noted. Block end time 1107.
[2023-08-17] MEDS: CEFAZOLIN VIAL 3 GM in SODIUM CHLORIDE 0.9% 100 ML IV (11:24)
--- NOTE | 2023-08-17 11:39 | SUR.OPER ---
Supine on padded OR bed, head on pillow, arms secured on padded arm boards at <90 degrees abduction, legs uncrossed, safety belt at thigh, tape over blanket over lower legs. Roller bar to support left foot. Hip personal companion added to left side.
[2023-08-17] MEDS: BUPIVACAINE 0.25% (PF) 30 ML, EPINEPHrine 0.15 MG INJ (11:54)
--- NOTE | 2023-08-17 12:39 | P.OP_ITS ---
Operative Date/Time/Diagnoses Date of procedure: 08/17/23 Time of procedure: 11:30 Pre-op diagnosis: Painful total knee, left Lateral patellar compression syndrome left knee, Pain in left knee Post-op diagnosis: same Procedure & Clinicians Procedure: 1. Arthroscopic lateral retinacular release left knee CPT code 40584 left 2. Arthroscopic debridement left knee medial, lateral compartments and suprapatellar pouch CPT code 00694 Same procedure as scheduled: Yes Indications: Patient is a 72-year-old male and underwent a left total knee arthroplasty on 03/18/2023. He is finished physical therapy and walking without assistive devices. He is persistent lateral knee pain with mild patellar tilt on x-rays. He is exhausted conservative treatments. He is indicated for arthroscopic debridement lateral retinacular release for patellar tilt and lateral patellar compression syndrome. He does not have any evidence of maltracking subluxation. The risks and benefits of the procedure have been discussed with the patient and given the opportunity to ask questions. The risks of surgery include but are not limited to infection, bleeding, persistence of pain, damage to nerves , recurrent scarring and stiffness, DVT, PE, cardiopulmonary complications and . The patient expressed a thorough understanding of the risks and benefits of surgery and has elected to proceed. Consent was signed Surgeon: Julia Perez Click Yes if Unassisted: Yes Anesthesia Type: General, Peripheral nerve block and Local Operative Notes Findings: Preoperative range of motion full extension to 135? of flexion normal patellar tracking. Arthroscopic evaluation-- Mild lateral patellar tilt. Moderate thickened synovium and scarring in the medial lateral and suprapatellar compartments this was debrided using the shaver and burner. Normal appearing articular fluid. No signs of infection. Lateral retinacular release was performed with a arthroscopic burner. Hemostasis was achieved. There was noted to be smooth centralized tracking of the patella taken through full extension to full flexion range of motion under arthroscopic visualization after lateral retinacular release. No loose bodies. Intact total knee arthroplasty demonstrated. Closure Type: primary Specimen(s): none sent Estimated Blood Loss (mL): 15 Blood products transfused: none Tourniquet time (min): 50 Procedure in detail: Patient was seen in the preoperative area the site of surgery was marked and informed consent confirmed. Final questions were answered. A regional block was placed by the anesthesia team to help with postoperative pain control. The patient was brought to the operative room by the anesthesia team, positioned supine on the table. Anesthetic was administered. The left lower extremity Aries evaluated. A well-padded thigh tourniquet was applied. The left lower extremity was prepped and draped in standard sterile fashion a formal time-out procedure was completed confirming the patient's side and site of surgery administration of appropriate preoperative antibiotics which were this patient was 3 g of Ancef. All were in agreement Attention was turned to the left leg the anterior total knee incision was well healed there was no erythema or signs of infection. Full range of motion was demonstrated 0-135 degrees. The knee was stable to varus and valgus stress testing. At this point Esmarch was used for exsanguination the tourniquet raised on the thigh to 250 mmHg. Was brought up into flexion the joint line was identified medial and lateral arthroscopic portals were established in the standard technique using a spinal needle followed by an 11 blade and the trocar. The lateral portal was used as a viewing portal we initially were the trocar was placed in up into the suprapatellar pouch in extension and the camera inserted. Diagnostic arthroscopy was completed in the standard fashion. Total knee arthroplasty was visualized. There was thickened synovium and scar tissue demonstrated in the medial suprapatellar and lateral compartments. There were no foreign bodies. Synovial fluid. Normal without evidence of infection. Polyethylene at the patella and in between the tibial and femoral components ap peared normal. Medial portal was established and the shaver introduced. The medial lateral and suprapatellar compartments were debrided using the shaver then portals were switched and the arthroscopic burner was inserted through the anterolateral portal to start the lateral retinacular release. The burner was used carefully to achieve the lateral retinacular release starting at the mid lateral patellar retinaculum working distally and then working proximally. Hemostasis was maintained. Next the portals were switched and a new superior lateral portal was established using 1st a spinal needle then an 11 blade and the trocar at the superior lateral patella. The camera was then inserted into the superior lateral portal and the burner into the anterolateral inferior portal to complete the lateral retinacular release under direct visualization. Additionally attention was placed to the lateral gutter which was confirmed opened and without loose bodies or spurs. Following completion of the lateral release arthroscopic camera was used to visualize the knee going through range of motion from full flexion to full extension several times to confirm appropriate maintained tracking of the patella and the trochlear groove. Further arthroscopic pictures were taken of the lateral gutter through this range of motion demonstrating an open lateral gutter. I could see no additional sites of tightness and compression at this point so I removed the instruments and then took the knee through range of motion palpating the lateral patellar retinaculum. I could not feel any crepitus through this range of motion and the patella was tracking normally. At this point the procedure was complete and the arthroscopic portals were closed with 3-0 nylon suture. The knee was injected with 20 cc of 0.25% Marcaine with epinephrine both in the skin and into the joint for postoperative pain control. The tourniquet was released. And the standard dressing was placed with Xeroform gauze Webril and an Esequiel wrap. Patient was woken from anesthesia and taken to the recovery room in good condition. There no immediate complications with this procedure. The extremity pinked up well after tourniquet released. Counts were correct. Complications: none Post-operative Condition: stable Disposition: PACU Plan for aftercare: Weightbear as tolerated. Range of motion as tolerated. May remove dressings and shower in 3 days. Placed Band-Aids over suture sites. Follow up in Orthopedic Clinic in 2 weeks for suture removal. Resume aspirin postoperative day 1
[2023-08-17] MEDS: fentaNYL 100 MCG/2 ML INJ IV (13:05)
--- NOTE | 2023-08-17 15:09 | SUR.PHASEII ---
1420 Pt dressed and ready for discharge. Up in WC per patient request waiting for ride.
== END 2023-08-17 15:28 | disposition home or self-care (01) ==
PROVIDERS: PCP Physician Assistant; Referring Provider Physician Assistant; Visit Provider Orthopaedic Surgery Foot and Ankle Surgery
PROC: (CPT 29870; principal; 2023-08-17 11:00)
DX: T84.84XA Pain due to internal orthopedic prosthetic devices, implants and grafts, initial encounter (principal); G89.18 Other acute postprocedural pain
CPT/HCPCS: 29873; 64450; J0171; J0330; J0690; J1100; J2250; J2405; J2704; J3010

== ENCOUNTER 2023-10-05 09:49 | Emergency (ER) | payer OTHER, SELFPAY ==
[2022-01-06 14:00] VITALS: BMI 39.1
[2023-10-05 10:02] VITALS: BP 155/95; PULSE 80; RESP 18; TEMP 36.5; O2SAT 98; BMI 38.3
--- NOTE | 2023-10-05 10:07 | DI.RAD.S_ITS ---
PROCEDURE: XR HUMERUS RT 2V INDICATIONS: fall TECHNIQUE: 2 views of the humerus were acquired. COMPARISON: None. FINDINGS: Bones: No fractures or dislocations. No suspicious bony lesions. Soft tissues: No suspicious soft tissue calcifications. IMPRESSION: No acute fracture. No osseous lesion. If symptoms and/or clinical suspicion for pathology persist, further assessment with repeat, or advanced imaging (e.g., CT, MRI, or bone scan) may be helpful for further assessment. Dictated by: Denisse Gary M.D. on 10/05/2023 at 10:45 Approved by: Denisse Gary M.D. on 10/05/2023 at 10:45
[2023-10-05] MEDS: KETOROLAC 30 MG/ML VIAL IM (11:35)
--- NOTE | 2023-10-05 11:47 | ED.UPPEXIN ---
HPI - Extremity Injury (Upper) <Julieth Pritchett PA-C - Last Filed: 10/05/23 11:54> General Chief Complaint: Extremity Injury, Upper Stated Complaint: fall, rt arm/shoulder injury Time Seen by Provider: 10/05/23 10:43 Source: patient Mode of arrival: Family Vehicle History of Present Illness HPI narrative: Patient is a 72-year-old male nonsmoker with history of colon cancer who presents with right upper extremity pain at. He tripped and fell yesterday. No loss of consciousness, no presyncope. He fell on his right shoulder and right hip. He is a little bit sore over his right hip but his main complaint is right upper extremity pain. He notes that he can move his arm out to the side and backwards but can not lift it up. He has no history of injury or surgery to that shoulder. Last night he took his prescribed methocarbamol for pain and slept well but is still having pain this morning. Related Data Home Medications Medication Instructions Recorded Confirmed chlorthalidone 25 mg tablet 25 mg PO [facility] ##0 04/11/17 08/17/23 finasteride 5 mg tablet 5 mg PO DAILY ##0 04/11/17 08/17/23 allopurinol 100 mg tablet 400 mg PO DAILY 01/05/22 08/17/23 amlodipine 10 mg tablet 2.5 mg PO DAILY 01/05/22 08/17/23 potassium chloride 20 mEq 20 meq PO DAILY 01/05/22 08/17/23 tablet,extended release rosuvastatin 5 mg tablet 2.5 mg PO DAILY 01/05/22 08/17/23 docusate sodium 100 mg capsule 250 mg PO BID PRN Constipation 08/17/22 08/17/23 from narcotic pain meds losartan 50 mg tablet 50 mg PO ONCE PM 08/17/22 08/17/23 gabapentin 300 mg capsule 600 mg PO BID 02/28/23 08/17/23 methocarbamol 500 mg tablet 1,000 mg PO BID 02/28/23 08/17/23 solifenacin 10 mg tablet 10 mg PO DAILY 02/28/23 08/17/23 tamsulosin 0.4 mg capsule 0.4 mg PO DAILY 02/28/23 08/17/23 coenzyme Q10 100 mg capsule 200 mg PO DAILY 08/17/23 08/17/23 (CoQ-10) ctjexvoolu-xpiwk-ifocih-hyaluronic 2 tab PO DAILY 08/17/23 08/17/23 acid 500 mg-100 mg-500 mg-40 mg tab Previous Rx's Medication Instructions Recorded aspirin 81 mg tablet,delayed 81 mg PO BID #60 tabs 03/18/23 release oxycodone 5 mg tablet 5 mg PO Q4H PRN pain #40 tabs 03/18/23 ketorolac 10 mg tablet 10 mg PO Q6H PRN pain #14 tabs 03/19/23 Allergies Allergy/AdvReac Type Severity Reaction Status Date / Time Iodinated Contrast Media Allergy Mild Hives Verified 10/05/23 10:07 semaglutide [From Wegovy] AdvReac Verified 10/05/23 10:07 Review of Systems <Julieth Pritchett PA-C - Last Filed: 10/05/23 11:54> Review of Systems ROS Unobtainable: All systems reviewed & are unremarkable except as noted in HPI and below Patient History <Julieth Pritchett PA-C - Last Filed: 10/05/23 11:54> Medical History History of colon cancer BACILIO treated with BiPAP Surgical History 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) H/O colectomy History of spinal fusion S/P epidural steroid injection Hx of laminectomy (2018) Social History household members: none Smoking Status: Former smoker alcohol intake: current Smoking Status: Former smoker tobacco type: cigarettes alcohol intake frequency: holidays/special occasions only Substance Use Type: marijuana Exam <Julieth Pritchett PA-C - Last Filed: 10/05/23 11:54> Narrative Exam Narrative: GENERAL: 72 year old patient appears stated age. Well-developed patient, in no acute distress. NEURO: AOx3. HEAD: Atraumatic. Normocephalic. EYES: Pupils equal round and reactive. Extraocular motions intact. No scleral icterus. No injection or drainage. ENT: Nose without bleeding or purulent drainage. Airway patent. RESPIRATORY: No distress or increased work of breathing EXTREMITIES: No edema of the right upper extremity or right shoulder. Patient is able to abduct and extend but not able to forward flex of the right shoulder. There is no bony tenderness with palpation of the right shoulder, right elbow, right wrist or right hand. Neurovascularly intact in the right hand. He has tenderness with palpation over the anterior aspect of the proximal humerus. SKIN: No rash or erythema of visible areas Initial Vital Signs Initial Vital Signs: Vital Signs Temperature 97.7 F 10/05/23 10:02 Pulse Rate 80 10/05/23 10:02 Respiratory Rate 18 10/05/23 10:02 Blood Pressure 155/95 H 10/05/23 10:02 Pulse Oximetry 98 10/05/23 10:02 Oxygen Delivery Method Room Air 10/05/23 10:02 <Lia Damon DO - Last Filed: 10/10/23 07:21> Initial Vital Signs Initial Vital Signs: Vital Signs Temperature 97.7 F 10/05/23 10:02 Pulse Rate 80 10/05/23 10:02 Respiratory Rate 18 10/05/23 10:02 Blood Pressure 155/95 H 10/05/23 10:02 Pulse Oximetry 98 10/05/23 10:02 Oxygen Delivery Method Room Air 10/05/23 10:02 Course <Julieth Pritchett PA-C - Last Filed: 10/05/23 11:54> Orders Ordered: Discontinued Medications Ketorolac Tromethamine (Ketorolac 30 Mg/Ml Vial) 30 mg IM NOW ONE Stop: 10/05/23 11:24 Last Admin: 10/05/23 11:35 Dose: 30 mg Documented By: RLS Vital Signs Vital signs: Vital Signs - 8 hr 10/05/23 10:02 Temperature 97.7 F Pulse Rate 80 Respiratory Rate 18 Blood Pressure 155/95 H Pulse Oximetry 98 Oxygen Delivery Method Room Air <DO Anjana Suárez Last Filed: 10/10/23 07:21> Orders Ordered: Discontinued Medications Ketorolac Tromethamine (Ketorolac 30 Mg/Ml Vial) 30 mg IM NOW ONE Stop: 10/05/23 11:24 Last Admin: 10/05/23 11:35 Dose: 30 mg Documented By: RLS Vital Signs Vital signs: Vital Signs - 8 hr 10/05/23 10:02 Temperature 97.7 F Pulse Rate 80 Respiratory Rate 18 Blood Pressure 155/95 H Pulse Oximetry 98 Oxygen Delivery Method Room Air MDM - Extremity Injury (Upper) <Julieth Pritchett PA-C - Last Filed: 10/05/23 11:54> Imaging Data Extremity x-ray #1: Radiologist's Impression: PROCEDURE: XR HUMERUS RT 2V INDICATIONS: fall TECHNIQUE: 2 views of the humerus were acquired. COMPARISON: None. FINDINGS: Bones: No fractures or dislocations. No suspicious bony lesions. Soft tissues: No suspicious soft tissue calcifications. IMPRESSION: No acute fracture. No osseous lesion. If symptoms and/or clinical suspicion for pathology persist, further assessment with repeat, or advanced imaging (e.g., CT, MRI, or bone scan) may be helpful for further assessment. Dictated by: Denisse Gary M.D. on 10/05/2023 at 10:45 Approved by: Denisse Gary M.D. on 10/05/2023 at 10:45 [facility] Narrative Medical decision making narrative: Multiple etiologies for patient's symptoms considered including, but not limited to: Fracture, dislocation, soft tissue injury No evidence of humerus fracture on x-ray. Patient has good range of motion with abduction and extension at the right shoulder but limited forward flexion. Suspect rotator cuff injury. Advised to follow up with PCP regarding referral to PT and possibly ortho, as [facility]. Given Toradol in the emergency room for pain control. Advised ice, rest, NSAIDs/Tylenol for pain control at home. Patient's symptoms improved over duration of stay with above-stated therapies. Findings and discharge diagnosis discussed with patient/family followed by verbalization of understanding Return precautions discussed with patient/family whom verbalize understanding of diagnosis and plan Discharge Plan Departure Patient Disposition: Home Clinical Impression: Soft tissue injury of right shoulder Qualifiers: Encounter type: initial encounter Qualified Code(s): S49.91XA - Unspecified injury of right shoulder and upper arm, initial encounter Instructions: DI for Shoulder Sprain Activity Restrictions/Additional Instructions: *You have been diagnosed with right shoulder sprain. I would advise ice, rest, gentle mobility of the shoulder. You can use Tylenol or ibuprofen, if tolerated, for pain. We have given you a dose of Toradol in the emergency room so you should not take other NSAIDs such as ibuprofen for at least 12 hours after discharge. I do not recommend immobilization of the shoulder as this often worsens mobility. I would encourage you to follow up with your primary [facility] through the [facility] and request a referral to physical therapy as I believe this may help you recover from this injury. If you develop any new or worsening symptoms, please return to the emergency room for reassessment. *What to do: *Please continue to take your regular medications as directed. [ ] New medication prescriptions sent to your pharmacy: [ ] [ ] New medication written as a paper prescription [x] No new medications given *Please follow up with your primary care provider in 2-3 days, call for an appointment. Let them know you were seen in the Emergency Department and that we ask that you be seen in follow up. We will electronically transmit a record of today's note if your PCP is in our system *If you do not have a primary care provider please contact the [facility] Resource line at [phone]. They will ask some questions about your medical history and help get you set up with a doctor in the community. *Return to Emergency Department if you should have any new, worsening or concerning symptoms, such as [fever greater than 101 F, shaking chills, worsening pain, persistent vomiting or other concerning symptoms]. Prescriptions: No Action chlorthalidone 25 MG tablet 25 mg PO [facility] Qty: 0 finasteride 5 MG tablet 5 mg PO DAILY Qty: 0 allopurinol 100 mg Tablet 400 mg PO DAILY amlodipine 10 mg Tablet 2.5 mg PO DAILY rosuvastatin 5 mg Tablet 2.5 mg PO DAILY potassium chloride 20 mEq Tablet Extended Release 20 meq PO DAILY losartan 50 mg Tablet 50 mg PO ONCE PM docusate sodium 100 mg capsule 250 mg PO BID PRN (Reason: Constipation from narcotic pain meds) ketorolac 10 mg tablet 10 mg PO Q6H PRN (Reason: pain) Qty: 14 0RF coenzyme Q10 [CoQ-10] 100 mg Capsule 200 mg PO DAILY kjykegzl-rllw-zlpbod-hyalur ac [id number] mg Tablet 2 tab PO DAILY methocarbamol 500 mg Tablet 1,000 mg PO BID tamsulosin 0.4 mg Capsule 0.4 mg PO DAILY gabapentin 300 mg Capsule 600 mg PO BID solifenacin 10 mg Tablet 10 mg PO DAILY oxycodone 5 mg tablet 5 mg PO Q4H PRN (Reason: pain) Qty: 40 0RF Rx Instructions: postop exempt aspirin 81 mg tablet,delayed release (DR/EC) 81 mg PO BID Qty: 60 0RF Referrals: Dilshad Barton PA-C [Primary Care Provider] - Stand Alone Forms: Patient Portal/API ED Sign-out <Lia Damon DO - Last Filed: 10/10/23 07:21> Cosign ED Attending [place] Attestation: I was immediately available in the department for consultation.
== END 2023-10-05 12:02 | disposition home or self-care (01) ==
PROVIDERS: Emergency Provider Physician Assistant; PCP Physician Assistant
DX: S49.91XA Unspecified injury of right shoulder and upper arm, initial encounter (principal); M25.551 Pain in right hip; W01.0XXA Fall on same level from slipping, tripping and stumbling without subsequent striking against object, initial encounter
CPT/HCPCS: 73060; 96372; 99283; J1885

== ENCOUNTER 2023-10-14 14:32 | Emergency (ER) | payer OTHER, SELFPAY ==
[2022-01-06 14:00] VITALS: BMI 39.1
[2023-10-14 14:55] VITALS: BP 165/116; PULSE 87; RESP 16; TEMP 36.4; O2SAT 97; BMI 36.5
--- NOTE | 2023-10-14 17:00 | DI.RAD.S_ITS ---
PROCEDURE: XR SHOULDER RT MIN 2V INDICATIONS: pain after fall last week TECHNIQUE: 3 views of the shoulder were acquired. COMPARISON: [facility], , SHOULDER MINIMUM 2 VIEW LEFT, 04/10/2017, 12:52. FINDINGS: Bones: No fractures or dislocations. No suspicious bony lesions. Visualized ribs appear intact. Mild to moderate degenerative changes of the glenohumeral and acromioclavicular joint. There is suggestion of possible superior subluxation of the humeral head relative to the glenoid. Soft tissues: No suspicious soft tissue calcifications. IMPRESSION: No acute bony abnormality. Ljap-sj-mdvxpxwr glenohumeral acromioclavicular joint osteoarthrosis. Query superior subluxation of the humeral head relative to the glenoid. If symptoms persist with conservative management, consider cross-sectional imaging such as CT or MRI. Approved by: Carrol Max M.D.,Ph.D. on 10/14/2023 at 18:25
--- NOTE | 2023-10-14 17:00 | DI.RAD.S_ITS ---
PROCEDURE: XR CLAVICLE RT INDICATIONS: pain after fall last week TECHNIQUE: 2 views of the clavicle were acquired. COMPARISON: None. FINDINGS: Bones: No fractures or dislocations. No suspicious bony lesions. Soft tissues: No suspicious soft tissue calcifications. IMPRESSION: No acute bony abnormality. Approved by: Carrol Max M.D.,Ph.D. on 10/14/2023 at 18:26
--- NOTE | 2023-10-14 17:30 | PC.NURSE ---
patient reports he has had issues with high blood pressure he thinks since they reduced one of his medications but he does believe that the recent reading may be attributed to his pain in his right clavicle from previous injury and visit 5 days ago.
--- NOTE | 2023-10-14 18:16 | ED.GENADULT ---
HPI - General Adult <Julieth Pritchett PA-C - Last Filed: 10/14/23 19:18> General Chief complaint: Hypertension Stated complaint: HBP sent by [facility] provider 180/110 pulse 76 Time Seen by Provider: 10/14/23 16:51 Source: patient Mode of arrival: Ambulatory History of Present Illness HPI narrative: Patient is a 72-year-old male nonsmoker with history of colon cancer and hypertension who presents concern for high blood pressure. He was seen by me in the emergency room on 10/05/2023 after a fall for right upper extremity pain. An x-ray of his right humerus was completed and unremarkable. He has been taking his blood pressure daily at home and today it was 180/110, which was very concerning for him. He called his PCP at the [facility] and they advised him to come to the emergency department. On arrival to the ER, he is concerned that perhaps the ongoing pain he is having in his right shoulder and upper chest is contributing to his increased blood pressure. After his visit last week the pain moved from his humerus into his shoulder and upper chest. He is sore to palpation. He has not tried taking any pain medicine for this. He also recalls that his primary care recently decrease the dose of his antihypertensive medication. He is unclear on why this happened. He denies headache, blurry or double vision, fatigue, lower extremity edema or shortness of breath. Related Data Home Medications Medication Instructions Recorded Confirmed chlorthalidone 25 mg tablet 25 mg PO [facility] ##0 04/11/17 08/17/23 finasteride 5 mg tablet 5 mg PO DAILY ##0 04/11/17 08/17/23 allopurinol 100 mg tablet 400 mg PO DAILY 01/05/22 08/17/23 amlodipine 10 mg tablet 2.5 mg PO DAILY 01/05/22 08/17/23 potassium chloride 20 mEq 20 meq PO DAILY 01/05/22 08/17/23 tablet,extended release rosuvastatin 5 mg tablet 2.5 mg PO DAILY 01/05/22 08/17/23 docusate sodium 100 mg capsule 250 mg PO BID PRN Constipation 08/17/22 08/17/23 from narcotic pain meds losartan 50 mg tablet 50 mg PO ONCE PM 08/17/22 08/17/23 gabapentin 300 mg capsule 600 mg PO BID 02/28/23 08/17/23 methocarbamol 500 mg tablet 1,000 mg PO BID 02/28/23 08/17/23 solifenacin 10 mg tablet 10 mg PO DAILY 02/28/23 08/17/23 tamsulosin 0.4 mg capsule 0.4 mg PO DAILY 02/28/23 08/17/23 coenzyme Q10 100 mg capsule 200 mg PO DAILY 08/17/23 08/17/23 (CoQ-10) myratzlgcw-jokgc-gvybom-hyaluronic 2 tab PO DAILY 08/17/23 08/17/23 acid 500 mg-100 mg-500 mg-40 mg tab Previous Rx's Medication Instructions Recorded aspirin 81 mg tablet,delayed 81 mg PO BID #60 tabs 03/18/23 release oxycodone 5 mg tablet 5 mg PO Q4H PRN pain #40 tabs 03/18/23 ketorolac 10 mg tablet 10 mg PO Q6H PRN pain #14 tabs 03/19/23 hydrocodone 5 mg-acetaminophen 325 1 tab PO Q6H PRN pain #10 tabs 10/14/23 mg tablet Allergies Allergy/AdvReac Type Severity Reaction Status Date / Time Iodinated Contrast Media Allergy Mild Hives Verified 10/14/23 14:54 semaglutide [From Wegovy] AdvReac Verified 10/14/23 14:54 Review of Systems <Julieth Pritchett PA-C - Last Filed: 10/14/23 19:18> Review of Systems ROS Unobtainable: All systems reviewed & are unremarkable except as noted in HPI and below Patient History <Julieth Pritchett PA-C - Last Filed: 10/14/23 19:18> Medical History History of colon cancer BACILIO treated with BiPAP Surgical History 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 Well-developed patient, in no acute distress. NEURO: AOx3. HEAD: Atraumatic. Normocephalic. EYES: Pupils equal round and reactive. Extraocular motions intact. No scleral icterus. No injection or drainage. ENT: Nose without bleeding or purulent drainage. Airway patent. RESPIRATORY: No distress. EXTREMITIES: No edema, tender to light palpation over right anterior shoulder and right upper chest. No visible or palpable deformity. SKIN: No rash or erythema of visible areas Initial Vital Signs Initial Vital Signs: Vital Signs Temperature 97.5 F L 10/14/23 14:55 Pulse Rate 87 10/14/23 14:55 Respiratory Rate 16 10/14/23 14:55 Blood Pressure 165/116 H 10/14/23 14:55 Pulse Oximetry 97 10/14/23 14:55 Oxygen Delivery Method Room Air 10/14/23 14:55 <Lenora Wesley DO - Last Filed: 10/15/23 02:25> Initial Vital Signs Initial Vital Signs: Vital Signs Temperature 97.5 F L 10/14/23 14:55 Pulse Rate 87 10/14/23 14:55 Respiratory Rate 16 10/14/23 14:55 Blood Pressure 165/116 H 10/14/23 14:55 Pulse Oximetry 97 10/14/23 14:55 Oxygen Delivery Method Room Air 10/14/23 14:55 Course <Julieth Pritchett PA-C - Last Filed: 10/14/23 19:18> Orders Ordered: Discontinued Medications Hydrocodone Bitart/Acetaminophen (Hydrocodone/Acet 5/325 Prepack) 1 bottle MISC DIRECTED ONE Stop: 10/14/23 19:53 Last Admin: 10/14/23 20:11 Dose: 1 bottle Documented By: NL Vital Signs Vital signs: Vital Signs - 8 hr 10/14/23 14:55 Temperature 97.5 F L Pulse Rate 87 Respiratory Rate 16 Blood Pressure 165/116 H Pulse Oximetry 97 Oxygen Delivery Method Room Air <Lenora Wesley DO - Last Filed: 10/15/23 02:25> Orders Ordered: Discontinued Medications Hydrocodone Bitart/Acetaminophen (Hydrocodone/Acet 5/325 Prepack) 1 bottle MISC DIRECTED ONE Stop: 10/14/23 19:53 Last Admin: 10/14/23 20:11 Dose: 1 bottle Documented By: CADY Vital Signs Vital signs: Vital Signs - 8 hr 10/14/23 14:55 Temperature 97.5 F L Pulse Rate 87 Respiratory Rate 16 Blood Pressure 165/116 H Pulse Oximetry 97 Oxygen Delivery Method Room Air Medical Decision Making <Julieth Pritchett PA-C - Last Filed: 10/14/23 19:18> [facility] Narrative Medical decision making narrative: Multiple etiologies for patient's symptoms considered including, but not limited to: Shoulder injury, clavicle fracture, soft tissue injury. Based on the history, suspect elevated blood pressure is related to a recent reduction in blood pressure medication by PCP. Based on patient's concerns today, we will obtain x-rays of the shoulder and right clavicle. Patient does not have any evidence of hypertensive urgency or emergency. He denies headache, dizziness, chest pain or shortness of breath. His systolic blood pressure in the ED is in the 160s. I discussed blood pressure management with him and encouraged him to follow up closely with his primary care is there has no indication for titration of his medications from the emergency room. Patient signed out to Dr. Wesley pending radiology reports. <Lenora Wesley DO - Last Filed: 10/15/23 02:25> Imaging Data Extremity x-ray #1: Radiologist's Impression: PROCEDURE: XR CLAVICLE RT INDICATIONS: pain after fall last week TECHNIQUE: 2 views of the clavicle were acquired. COMPARISON: None. FINDINGS: Bones: No fractures or dislocations. No suspicious bony lesions. Soft tissues: No suspicious soft tissue calcifications. IMPRESSION: No acute bony abnormality. Approved by: Carrol Max M.D.,Ph.D. on 10/14/2023 at 18:26 Extremity x-ray #2: Radiologist's Impression: PROCEDURE: XR SHOULDER RT MIN 2V INDICATIONS: pain after fall last week TECHNIQUE: 3 views of the shoulder were acquired. COMPARISON: [facility], , SHOULDER MINIMUM 2 VIEW LEFT, 04/10/2017, 12:52. FINDINGS: Bones: No fractures or dislocations. No suspicious bony lesions. Visualized ribs appear intact. Mild to moderate degenerative changes of the glenohumeral and acromioclavicular joint. There is suggestion of possible superior subluxation of the humeral head relative to the glenoid. Soft tissues: No suspicious soft tissue calcifications. IMPRESSION: No acute bony abnormality. Fpuu-cm-zpvnjldk glenohumeral acromioclavicular joint osteoarthrosis. Query superior subluxation of the humeral head relative to the glenoid. If symptoms persist with conservative management, consider cross-sectional imaging such as CT or MRI. MDM Narrative Medical decision making narrative: Multiple etiologies for patient's symptoms considered including, but not limited to: Shoulder injury, clavicle fracture, soft tissue injury. Based on the history, suspect elevated blood pressure is related to a recent reduction in blood pressure medication by PCP. Based on patient's concerns today, we will obtain x-rays of the shoulder and right clavicle. Patient does not have any evidence of hypertensive urgency or emergency. He denies headache, dizziness, chest pain or shortness of breath. His systolic blood pressure in the ED is in the 160s. I discussed blood pressure management with him and encouraged him to follow up closely with his primary care is there has no indication for titration of his medications from the emergency room. Patient signed out to Dr. Wesley pending radiology reports. Dr. Wesley-received sign-out of seen evaluated patient myself. He continues to have pretty severe right shoulder pain. He had some obvious decreased range of motion. He has decreased abduction and extension. X-rays were read and negative I have also reviewed them myself. He does not have any sort of tenderness over the clavicle. I suspect some sort of rotator cuff tear. I recommend probably an outpatient MRI. He has given a sling and pain medications. Questions have been answered Discharge Plan Departure Patient Disposition: Home Clinical Impression: Acute pain of right shoulder Instructions: DI for High Blood Pressure Activity Restrictions/Additional Instructions: *You have been diagnosed with elevated blood pressure. Please follow up with your primary care to discuss blood pressure management and clarify your medication dosing. As we discussed previously, please follow up with primary care in terms of a PT referral for your shoulder. I do think that you should get an MRI. Of your shoulder. Wear a sling as needed. Please make sure that you take your arm out and move it around multiple times daily. Please follow-up with orthopedics. *What to do: *Please continue to take your regular medications as directed. [ ] New medication prescriptions sent to your pharmacy: [place] 1 tablet every 6 hours if needed for severe pain, do not combine with extra Tylenol [ ] New medication written as a paper prescription [ ] No new medications given *Please follow up with your primary care provider in 2-3 days, call for an appointment. Let them know you were seen in the Emergency Department and that we ask that you be seen in follow up. We will electronically transmit a record of today's note if your PCP is in our system *If you do not have a primary care provider please contact the [facility] Resource line at [phone]. They will ask some questions about your medical history and help get you set up with a doctor in the community. *Return to Emergency Department if you should have any new, worsening or concerning symptoms, such as [fever greater than 101 F, shaking chills, worsening pain, persistent vomiting or other concerning symptoms]. CONTROLLED SUBSTANCE DISCHARGE (Narcotoic/benzodiazepine/Flexeril/Phenergan) 1. You have been prescribed narcotic medications, it does have acetaminophen/Tylenol/paracetamol in it, DO NOT TAKE MORE THAN 4,00mg in 24 hours of Tylenol. TRAMADOL DOES NOT CONTAIN TYLENOL 2. Please understand that we cannot provide further refills of narcotics, benzodiazepines or controlled substances through the ED and her pain management will need to be through your provider. 3. While on these medications you cannot drive or operate heavy machinery. 4. You cannot sign legal documents or perform any duties such as this. 5. As long as you're taking opiate pain medications he should also be taking a stool softener such as Colace, Dulcolax, MiraLAX or prune juice, to help avoid constipation. Prescriptions: New hydrocodone-acetaminophen 5-325 mg tablet 1 tab PO Q6H PRN (Reason: pain) Qty: 10 0RF No Action chlorthalidone 25 MG tablet 25 mg PO [facility] Qty: 0 finasteride 5 MG tablet 5 mg PO DAILY Qty: 0 allopurinol 100 mg Tablet 400 mg PO DAILY amlodipine 10 mg Tablet 2.5 mg PO DAILY rosuvastatin 5 mg Tablet 2.5 mg PO DAILY potassium chloride 20 mEq Tablet Extended Release 20 meq PO DAILY losartan 50 mg Tablet 50 mg PO ONCE PM docusate sodium 100 mg capsule 250 mg PO BID PRN (Reason: Constipation from narcotic pain meds) ketorolac 10 mg tablet 10 mg PO Q6H PRN (Reason: pain) Qty: 14 0RF coenzyme Q10 [CoQ-10] 100 mg Capsule 200 mg PO DAILY hddbgdrl-gcsc-vpsjvn-hyalur ac [id number] mg Tablet 2 tab PO DAILY methocarbamol 500 mg Tablet 1,000 mg PO BID tamsulosin 0.4 mg Capsule 0.4 mg PO DAILY gabapentin 300 mg Capsule 600 mg PO BID solifenacin 10 mg Tablet 10 mg PO DAILY oxycodone 5 mg tablet 5 mg PO Q4H PRN (Reason: pain) Qty: 40 0RF Rx Instructions: postop exempt aspirin 81 mg tablet,delayed release (DR/EC) 81 mg PO BID Qty: 60 0RF Referrals: [facility] [Provider Group] Dilshad Barton PA-C [Primary Care Provider] - Stand Alone Forms: Patient Portal/API ED Sign-out <Lenora Wesley DO - Last Filed: 10/15/23 02:25> Cosign ED Attending [place] Attestation: I was available for consultation.
[2023-10-14] MEDS: HYDROCODONE/ACET 5/325 PREPACK 1 BOTTLE MISC (20:11)
== END 2023-10-14 20:11 | disposition home or self-care (01) ==
PROVIDERS: Emergency Provider Physician Assistant; PCP Physician Assistant
DX: M25.511 Pain in right shoulder (principal); I10 Essential (primary) hypertension; Z79.899 Other long term (current) drug therapy
CPT/HCPCS: 73000; 73030; 99281; 99283

== ENCOUNTER 2024-02-02 14:59 | Emergency (ER) | payer OTHER, SELFPAY ==
[2022-01-06 14:00] VITALS: BMI 39.1
[2024-02-02 15:09] VITALS: BP 137/90; PULSE 89; RESP 18; TEMP 36.8; O2SAT 97; BMI 36.5
--- NOTE | 2024-02-02 16:11 | DI.RAD.S_ITS ---
PROCEDURE: XR KNEE LT 3V INDICATIONS: Pain and swelling TECHNIQUE: 3 views of the knee were acquired. COMPARISON: [facility], JOSE, XR KNEE LT 3V, 03/19/2023, 11:17. FINDINGS: Bones: Expected appearance of total left knee arthroplasty. No evidence of hardware failure or loosening. No fractures or dislocations. No suspicious bony lesions. Soft tissues: No joint effusion. No suspicious soft tissue calcifications. IMPRESSION: Expected appearance of total left knee arthroplasty. No acute bony abnormality. Dictated by: Aris Serrato M.D. on 02/02/2024 at 17:09 Approved by: Aris Serrato M.D. on 02/02/2024 at 17:10
--- NOTE | 2024-02-02 18:41 | ED.EXTPRO ---
HPI - Extremity Problem General Chief complaint: Extremity Problem,Nontraumatic Stated complaint: lt knee, hot swollen, painful Time Seen by Provider: 02/02/24 18:41 Source: patient, RN notes reviewed and old records reviewed Mode of arrival: Ambulatory Limitations: no limitations History of Present Illness HPI Narrative: 73-year-old male history of hypertension, dyslipidemia, gout, history of colon cancer comes in with complaint of left knee pain. Patient had knee replacement approximately a year ago. He states he has had persistent pain since then. He states it has been giving out occasionally and he has been falling frequently. He states it is become more swollen. It is felt warm. He states no real redness. Denies any fevers or chills. No chest pain or shortness of breath, no nausea or vomiting, no other GI or urinary symptoms. Related Data Home Medications Medication Instructions Recorded Confirmed chlorthalidone 25 mg tablet 25 mg PO [facility] ##0 04/11/17 08/17/23 finasteride 5 mg tablet 5 mg PO DAILY ##0 04/11/17 08/17/23 allopurinol 100 mg tablet 400 mg PO DAILY 01/05/22 08/17/23 amlodipine 10 mg tablet 2.5 mg PO DAILY 01/05/22 08/17/23 potassium chloride 20 mEq 20 meq PO DAILY 01/05/22 08/17/23 tablet,extended release rosuvastatin 5 mg tablet 2.5 mg PO DAILY 01/05/22 08/17/23 docusate sodium 100 mg capsule 250 mg PO BID PRN Constipation 08/17/22 08/17/23 from narcotic pain meds losartan 50 mg tablet 50 mg PO ONCE PM 08/17/22 08/17/23 gabapentin 300 mg capsule 600 mg PO BID 02/28/23 08/17/23 methocarbamol 500 mg tablet 1,000 mg PO BID 02/28/23 08/17/23 solifenacin 10 mg tablet 10 mg PO DAILY 02/28/23 08/17/23 tamsulosin 0.4 mg capsule 0.4 mg PO DAILY 02/28/23 08/17/23 coenzyme Q10 100 mg capsule 200 mg PO DAILY 08/17/23 08/17/23 (CoQ-10) frcoigrjca-tkekp-mipila-hyaluronic 2 tab PO DAILY 08/17/23 08/17/23 acid 500 mg-100 mg-500 mg-40 mg tab Previous Rx's Medication Instructions Recorded aspirin 81 mg tablet,delayed 81 mg PO BID #60 tabs 03/18/23 release oxycodone 5 mg tablet 5 mg PO Q4H PRN pain #40 tabs 03/18/23 ketorolac 10 mg tablet 10 mg PO Q6H PRN pain #14 tabs 03/19/23 hydrocodone 5 mg-acetaminophen 325 1 tab PO Q6H PRN pain #10 tabs 10/14/23 mg tablet hydrocodone 5 mg-acetaminophen 325 1 tab PO QID PRN pain #10 tabs 02/02/24 mg tablet Allergies Allergy/AdvReac Type Severity Reaction Status Date / Time Iodinated Contrast Media Allergy Mild Hives Verified 10/14/23 14:54 semaglutide [From Wegovy] AdvReac Verified 10/14/23 14:54 Review of Systems Review of Systems ROS Unobtainable: All systems reviewed & are unremarkable except as noted in HPI and below Patient History Medical History History of colon cancer BACILIO treated with BiPAP Surgical History 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) H/O colectomy History of spinal fusion S/P epidural steroid injection Hx of laminectomy (2017) Social History household members: none Smoking Status: Former smoker alcohol intake: current Smoking Status: Former smoker tobacco type: cigarettes alcohol intake frequency: holidays/special occasions only Substance Use Type: marijuana Exam Narrative Exam Narrative: GENERAL: Alert and oriented x three, male in mild distress. HEENT: Head normocephalic, atraumatic, EOMI, pupils reactive, face symmetric, moist mucous membranes NECK: Supple, full range of motion CARDIOVASCULAR: Regular rate and rhythm without murmurs, rubs or gallops. RESPIRATORY: Breath sounds equal bilaterally, no wheezes rales or rhonchi. ABDOMEN: Soft, nontender. Normoactive bowel sounds all 4 quadrants. No guarding or rebound, rigidity, no mass : No CVA tenderness EXTREMITIES: Normal range of motion, no clubbing Neurovascularly intact. Patient has a edema of the knee but also throughout the leg by. Patient has bilateral lower extremity edema. Patient has mild tenderness but no discrete bony tenderness. No ballotable effusion. Patient has full range of motion. Skin is slightly warm to touch in comparison to the other side. NEUROLOGICAL: Cranial nerves II through XII grossly intact. Moving all extremities SKIN: Warm, dry, no petechiae, no rashes or lesions. Initial Vital Signs Initial Vital Signs: Vital Signs Temperature 98.2 F 02/02/24 15:09 Pulse Rate 89 02/02/24 15:09 Respiratory Rate 18 02/02/24 15:09 Blood Pressure 137/90 02/02/24 15:09 Pulse Oximetry 97 02/02/24 15:09 Oxygen Delivery Method Room Air 02/02/24 15:09 Course Orders Ordered: ED Orders 02/02/24 19:25 CBC Auto Diff [Complete Blood Count AUTO DIFF] Stat CMP [Comprehensive Metabolic Panel] Stat CRP [C-Reactive Protein Quant] Stat ESR [Erythrocyte Sedimentation Rate] Stat Uric Acid Stat 02/02/24 19:40 Blood Culture Stat Discontinued Medications Hydrocodone Bitart/Acetaminophen (Hydrocodone/Acet 5/325 Prepack) 1 bottle MISC DIRECTED ONE Stop: 02/02/24 20:56 Last Admin: 02/02/24 21:00 Dose: 1 bottle Documented By: THERESA Vital Signs Vital signs: Vital Signs - 8 hr 02/02/24 21:06 Temperature 97.7 F Pulse Rate 96 H Respiratory Rate 18 Blood Pressure 165/99 H Pulse Oximetry 100 Oxygen Delivery Method Room Air MDM - Extremity (Nontraumatic) Lab Data 02/02/24 19:25 02/02/24 19:25 Labs: Lab Results 02/02/24 Range/Units 19:25 WBC 5.1 (4.5-11.0) X10^3/uL RBC 3.76 L (4.5-5.9) X10^6/uL Hgb 13.3 L (13.5-17.5) g/dL Hct 38.1 L (41-53) % MCV 101.3 H (80-100) fL MCH 35.5 H (26-34) PG MCHC 35.0 (30-36) % RDW 14.3 (11.6-14.8) % Plt Count 160 (150-400) X10^3/uL Neut % (Auto) 53.7 (50-75) % Lymph % (Auto) 31.5 (25-40) % Major % (Auto) 10.3 (3-14) % Eos % (Auto) 3.1 (2-4) % Baso % (Auto) 1.4 (0-2) % Neut # (Auto) 2800 (8428-9898) /uL Lymph # (Auto) 1600 (5531-7204) /uL Major # (Auto) 500 (0-900) /uL Eos # (Auto) 200 (0-450) /uL Baso # (Auto) 100 (0-100) /uL ESR 33 H (0-15) MM/HR Sodium 140 (137-145) mmol/L Potassium 3.3 L (3.4-5.1) mmol/L Chloride 103 (98-107) mmol/L Carbon Dioxide 29 (22-32) mmol/L BUN 13 (9-20) mg/dL Creatinine 0.68 (0.66-1.25) mg/dL Estimated GFR > 60 (>60) mL/min BUN/Creatinine Ratio 19.1 (6-22) Glucose 93 (80-110) mg/dL Uric Acid 4.2 (3.5-8.5) mg/dL Calcium 8.8 (8.4-10.2) mg/dL Total Bilirubin 0.8 (0.2-1.3) mg/dL AST 31 (17-59) IU/L ALT 26 (<50) IU/L Alkaline Phosphatase 88 (38-126) U/L C-Reactive Protein < 0.5 (<1.0) mg/dL Total Protein 7.7 (6.3-8.2) g/dL Albumin 4.6 (3.5-5.0) g/dL Globulin 3.1 (1.7-4.1) g/dL Albumin/Globulin Ratio 1.5 (1.0-2.8) Imaging Data Extremity x-ray #1: Radiologist's Impression: Jaime Aleman??73??M??1950 ? Allergy/Adv: Iodinated Contrast Media, semaglutide (More??) Close Knee X-Ray (Signed) Aris Serrato - 02/02/24 Shoulder X-Ray (Signed) Winter,Carrol - 10/14/23 Clavicle X-Ray (Signed) Winter,Carrol - 10/14/23 Humerus X-Ray (Signed) GaryRolando ortegaclyde - 10/05/23 Knee X-Ray (Signed) Carmelo Andres - 03/19/23 Knee X-Ray (Signed) Claudia Brown - 03/18/23 Lumbar Spine MRI (Signed) Yanira Jesus - 08/29/22 Lumbar Spine X-Ray (Signed) Aris Serrato - 01/06/22 Knee X-Ray (Signed) Rei Beavern - 11/04/21 Lumbar Spine MRI (Signed) Karmen Salazar - 07/20/21 Lumbar Spine MRI (Signed) Timbo Medina - 03/02/19 Telemetry Strips 04/10/17 Launch?Image [address] [address] XRay Report Signed Patient: Jaime Aleman MR#: [id number] : 1950 Acct:[id number] Age/Sex: 73 / M Date of Service: 02/02/24 Loc: ED Accession Number: [id number] Procedure: XR knee LT 3V Ordering Provider: Lenora Wesley D.O. PROCEDURE: XR KNEE LT 3V INDICATIONS: Pain and swelling TECHNIQUE: 3 views of the knee were acquired. COMPARISON: [facility], , XR KNEE LT 3V, 03/19/2023, 11:17. FINDINGS: Bones: Expected appearance of total left knee arthroplasty. No evidence of hardware failure or loosening. No fractures or dislocations. No suspicious bony lesions. Soft tissues: No joint effusion. No suspicious soft tissue calcifications. IMPRESSION: Expected appearance of total left knee arthroplasty. No acute bony abnormality. Dictated by: Aris Serrato M.D. on 02/02/2024 at 17:09 Approved by: Aris Serrato M.D. on 02/02/2024 at 17:10 MDM Narrative Medical decision making narrative: This is a 73-year-old with complaint of left knee pain, patient does not have significant swelling in comparison to the right but does have some mild, no ballotable effusion has full range of motion. Does have discomfort with moving particularly from seated to standing. Otherwise has good range of motion and can weightbear. Discussed with patient we will obtain labs including CBC CMP ESR INR SP uric acid patient has gout in the past and culture. X-ray shows no acute change expected appearance left total knee arthroplasty. Labs show normal white count hemoglobin of 13, CRP is negative, ESR slightly elevated at 33 but was elevated in the past even prior to his knee surgery. Electrolytes and renal function are otherwise appropriate. Uric acid was normal. Cultures were sent. Spoke with patient my suspicion for infection is lower rather than higher would have him follow up with Orthopedic surgery. Reviewed all findings with patient. He did ask he would like to have orthopedic surgeon. He notes this has been longstanding pain in his knee has been slightly worsening but does feel warm. There is no redness. He is mild swelling compared to the other side. Reviewed all patient's findings with him return precautions. All questions answered. Patient was provided a copy of his labs. Discharge Plan Departure Patient Disposition: Home Clinical Impression: Chronic knee pain Activity Restrictions/Additional Instructions: Follow-up with orthopedic surgery if you prefer to follow up with a different orthopedic surgeon alternative options were included below. Your labs overall are reassuring your ESR is slightly elevated but has been elevated in the past even prior to your knee surgery. Your CRP, white blood cell count and uric acid were all normal. You do have blood cultures pending please take 48-72 hours to result. If they are positive we will call you. You can take Tylenol up to a 1000 mg every 6 hours as needed for pain. If inadequate for pain take narcotic pain medication 1-2 tablets every 6 hours as needed. This medication can make you sleepy do not drive, perform hazardous activities or make any major decisions while taking it. This medication will make you constipated please take a stool softener once to twice daily until stools are soft and regular. [facility] [place]. Please return for fevers if you are having increasing redness, swelling, increasing pain decreasing ability to use your knee or other new or concerning changes. Prescriptions: New hydrocodone-acetaminophen 5-325 mg tablet 1 tab PO QID PRN (Reason: pain) Qty: 10 0RF No Action chlorthalidone 25 MG tablet 25 mg PO [facility] Qty: 0 finasteride 5 MG tablet 5 mg PO DAILY Qty: 0 allopurinol 100 mg Tablet 400 mg PO DAILY amlodipine 10 mg Tablet 2.5 mg PO DAILY rosuvastatin 5 mg Tablet 2.5 mg PO DAILY potassium chloride 20 mEq Tablet Extended Release 20 meq PO DAILY losartan 50 mg Tablet 50 mg PO ONCE PM docusate sodium 100 mg capsule 250 mg PO BID PRN (Reason: Constipation from narcotic pain meds) ketorolac 10 mg tablet 10 mg PO Q6H PRN (Reason: pain) Qty: 14 0RF coenzyme Q10 [CoQ-10] 100 mg Capsule 200 mg PO DAILY ctrveftf-vjru-nnzayl-hyalur ac [id number] mg Tablet 2 tab PO DAILY hydrocodone-acetaminophen 5-325 mg tablet 1 tab PO Q6H PRN (Reason: pain) Qty: 10 0RF methocarbamol 500 mg Tablet 1,000 mg PO BID tamsulosin 0.4 mg Capsule 0.4 mg PO DAILY gabapentin 300 mg Capsule 600 mg PO BID solifenacin 10 mg Tablet 10 mg PO DAILY oxycodone 5 mg tablet 5 mg PO Q4H PRN (Reason: pain) Qty: 40 0RF Rx Instructions: postop exempt aspirin 81 mg tablet,delayed release (DR/EC) 81 mg PO BID Qty: 60 0RF Referrals: Dilshad Barton PA-C [Primary Care Provider] - Krystian Lomeli MD [Physician] - Stand Alone Forms: Patient Portal/API
[2024-02-02 19:40] LABS: Add Manual Diff / Slide Review NO; Basophils Absolute Auto 100 /uL (0-100); Basophils Percent Auto 1.4 % (0-2); Eosinophils Absolute Auto 200 /uL (0-450); Eosinophils Percent Auto 3.1 % (2-4); Hematocrit 38.1 % (41-53); Hemoglobin 13.3 g/dL (13.5-17.5); Lymphocytes Absolute Auto 1600 /uL (1100-4500); Lymphocytes Percent Auto 31.5 % (25-40); Mean Corpuscular Hemoglobin 35.5 PG (26-34); Mean Corpuscular Volume 101.3 fL (80-100); Monocytes Absolute Auto 500 /uL (0-900); Monocytes Percent Auto 10.3 % (3-14); Neutrophils Absolute Auto 2800 /uL (1500-7000); Neutrophils Percent Auto 53.7 % (50-75); Platelet Count 160 X10^3/uL (150-400); Red Blood Cell Count 3.76 X10^6/uL (4.5-5.9); Red Cell Distribution Width 14.3 % (11.6-14.8); White Blood Cell Count 5.1 X10^3/uL (4.5-11.0)
[2024-02-02 19:53] LABS: Alanine Aminotransferase 26 IU/L (<50); Albumin 4.6 g/dL (3.5-5.0); Albumin Globulin Ratio 1.5 (1.0-2.8); Alkaline Phosphatase 88 U/L (38-126); Aspartate Aminotransferase 31 IU/L (17-59); BUN Creatinine Ratio 19.1 (6-22); Bilirubin Total 0.8 mg/dL (0.2-1.3); Blood Urea Nitrogen 13 mg/dL (9-20); C-Reactive Protein Quant < 0.5 mg/dL (<1.0); Calcium 8.8 mg/dL (8.4-10.2); Carbon Dioxide 29 mmol/L (22-32); Chloride 103 mmol/L (98-107); Estimated Glomerular Filt Rate > 60 mL/min (>60); Globulin 3.1 g/dL (1.7-4.1); Glucose 93 mg/dL (80-110); HEMOLYSIS < 15 (0-50); Potassium 3.3 mmol/L (3.4-5.1); Sodium 140 mmol/L (137-145); Total Protein 7.7 g/dL (6.3-8.2); Uric Acid 4.2 mg/dL (3.5-8.5)
[2024-02-02 20:18] LABS: Erythrocyte Sedimentation Rate 33 MM/HR (0-15)
[2024-02-02] MEDS: HYDROCODONE/ACET 5/325 PREPACK 1 BOTTLE MISC (21:00)
[2024-02-02 21:06] VITALS: BP 165/99; PULSE 96; RESP 18; TEMP 36.5; O2SAT 100
== END 2024-02-02 21:13 | disposition home or self-care (01) ==
PROVIDERS: Emergency Provider Emergency Medicine; PCP Physician Assistant
DX: M25.562 Pain in left knee (principal); G89.29 Other chronic pain
CPT/HCPCS: 36415; 73562; 80053; 84550; 85025; 85651; 86140; 87040; 99284

== ENCOUNTER 2024-05-04 11:55 | Emergency (ER) | payer OTHER, SELFPAY ==
[2022-01-06 14:00] VITALS: BMI 39.1
[2024-05-04] VITALS (15 sets, daily range): BP systolic 132–160; BP diastolic 87–99; PULSE 82–103; RESP 21–35; TEMP 36.4; O2SAT 92–98; BMI 39.5
[2024-05-04 12:48] LABS: Prothrombin Time 11.3 SECONDS (9.4-12.5)
[2024-05-04 12:50] LABS: PTT Partial Thromboplastin Tim 30 SECONDS (25.1-36.5)
[2024-05-04 12:51] LABS: Add Manual Diff / Slide Review NO; Basophils Absolute Auto 100 /uL (0-100); Basophils Percent Auto 2.3 % (0-2); Eosinophils Absolute Auto 200 /uL (0-450); Eosinophils Percent Auto 3.1 % (2-4); Hematocrit 41.7 % (41-53); Hemoglobin 14.7 g/dL (13.5-17.5); Lymphocytes Absolute Auto 1700 /uL (1100-4500); Lymphocytes Percent Auto 29.6 % (25-40); Mean Corpuscular HGB Conc 35.4 % (30-36); Mean Corpuscular Hemoglobin 35.7 PG (26-34); Mean Corpuscular Volume 100.9 fL (80-100); Monocytes Absolute Auto 600 /uL (0-900); Monocytes Percent Auto 10.9 % (3-14); Neutrophils Absolute Auto 3200 /uL (1500-7000); Neutrophils Percent Auto 54.1 % (50-75); Platelet Count 177 X10^3/uL (150-400); Red Blood Cell Count 4.13 X10^6/uL (4.5-5.9); Red Cell Distribution Width 14.3 % (11.6-14.8); White Blood Cell Count 5.9 X10^3/uL (4.5-11.0)
[2024-05-04 13:00] LABS: Alanine Aminotransferase 31 IU/L (<50); Albumin 4.4 g/dL (3.5-5.0); Albumin Globulin Ratio 1.4 (1.0-2.8); Alkaline Phosphatase 91 U/L (38-126); Aspartate Aminotransferase 33 IU/L (17-59); BUN Creatinine Ratio 23.6 (6-22); Bilirubin Total 0.7 mg/dL (0.2-1.3); Blood Urea Nitrogen 17 mg/dL (9-20); Calcium 9.2 mg/dL (8.4-10.2); Carbon Dioxide 27 mmol/L (22-32); Chloride 104 mmol/L (98-107); Estimated Glomerular Filt Rate > 60 mL/min (>60); Globulin 3.2 g/dL (1.7-4.1); Glucose 90 mg/dL (80-110); HEMOLYSIS < 15 (0-50); Potassium 3.3 mmol/L (3.4-5.1); Sodium 138 mmol/L (137-145); Total Protein 7.6 g/dL (6.3-8.2)
--- NOTE | 2024-05-04 15:48 | DI.CT.S_ITS ---
PROCEDURE: CT ANGIO ABD/PEL GI BLEED INDICATIONS: GI bleeding TECHNIQUE: After the administration of intravenous contrast, 2.5 mm thick sections acquired from the diaphragm to the symphysis. 10 mm maximum-intensity projection (MIP) reformats were then acquired. For radiation dose reduction, the following was used: automated exposure control. COMPARISON: None. FINDINGS: Image Quality: Diagnostic. Abdominal aorta: Normal caliber, mildly tortuous, moderate mixed calcified and noncalcified atherosclerosis in the inferior portion. No evidence of dissection, aneurysm, or rupture. Mesenteric arteries: Mild calcified narrowing the celiac artery origin. Left gastric artery branches diminutive. Hepatic and splenic arteries are normal caliber. Minimal narrowing at the superior mesenteric artery origin. Branches are widely patent. No source of enteric bleeding found. Renal arteries: Single renal arteries bilaterally. Mild to moderate calcification of the proximal artery origins bilaterally. OTHER: Lower Chest: No significant findings. Liver: Scattered subcentimeter cysts. No solid mass. Gallbladder: No wall thickening or calcified stones. Biliary ducts: No biliary dilation. Pancreas: Normal size and morphology without visible ductal dilatation or inflammation. Spleen: Size is within normal limits. Adrenal Glands: No adrenal nodules. Kidneys and Ureters: Symmetric enhancement. No nephrolithiasis or hydronephrosis. No hydroureter. Stomach and Bowel: There is a colorectal anastomosis which appears intact. Most of the colon is decompressed. Normal quantity of proximal colonic stool. The appendix is not seen. Small bowel loops are decompressed. Stomach is decompressed. No suspicious wall thickening or surrounding inflammation. No interloop fluid collection. Peritoneum: No abnormal intraperitoneal fluid. No free air. Ventral Wall: No hernia. Abdominal Nodes: No retroperitoneal or mesenteric adenopathy by size criteria. Vessels: IVC and portal vein are within normal limits. PELVIS: Pelvic Organs: Unremarkable. Bladder: Unremarkable. Pelvic Nodes: No enlarged lymph nodes. Miscellaneous: No inguinal hernias are seen. Bones: No aggressive osseous abnormality. Postoperative and degenerative changes present in the spine. IMPRESSION: No source of enteric bleeding found. Scattered calcified and noncalcified atherosclerosis as described above. Intact colorectal anastomosis. Dictated by: Claudia Brown M.D. on 05/04/2024 at 19:14 Approved by: Claudia Brown M.D. on 05/04/2024 at 19:24
--- NOTE | 2024-05-04 16:12 | ED_ITS ---
HPI - GI Bleed <Lamonte Esparza MD - Last Filed: 05/05/24 07:23> General Chief complaint: GI Bleed Stated complaint: Blood in stool Time Seen by Provider: 05/04/24 15:48 Source: patient Mode of arrival: Ambulatory History of Present Illness HPI Narrative: 73-year-old male with history of prior partial colectomy due to numerous noncancerous polyps, removed 7 years ago [place], no colostomy, had primary anastomosis procedure, not sure if he had follow up colonoscopy, recent days bright red blood per rectum, denies anterior abdominal discomfort. No black stools. No hemorrhage known. Not taking blood thinner medications besides aspirin. He has low back pain but apparently this is not new. Related Data Home Medications Medication Instructions Recorded Confirmed chlorthalidone 25 mg tablet 25 mg PO [facility] ##0 04/11/17 08/17/23 finasteride 5 mg tablet 5 mg PO DAILY ##0 04/11/17 08/17/23 allopurinol 100 mg tablet 400 mg PO DAILY 01/05/22 08/17/23 amlodipine 10 mg tablet 2.5 mg PO DAILY 01/05/22 08/17/23 potassium chloride 20 mEq 20 meq PO DAILY 01/05/22 08/17/23 tablet,extended release rosuvastatin 5 mg tablet 2.5 mg PO DAILY 01/05/22 08/17/23 docusate sodium 100 mg capsule 250 mg PO BID PRN Constipation 08/17/22 08/17/23 from narcotic pain meds losartan 50 mg tablet 50 mg PO ONCE PM 08/17/22 08/17/23 gabapentin 300 mg capsule 600 mg PO BID 02/28/23 08/17/23 methocarbamol 500 mg tablet 1,000 mg PO BID 02/28/23 08/17/23 solifenacin 10 mg tablet 10 mg PO DAILY 02/28/23 08/17/23 tamsulosin 0.4 mg capsule 0.4 mg PO DAILY 02/28/23 08/17/23 coenzyme Q10 100 mg capsule 200 mg PO DAILY 08/17/23 08/17/23 (CoQ-10) [id number]-[id number]-hbpipl-hyaluronic 2 tab PO DAILY 08/17/23 08/17/23 acid 500 mg-100 mg-500 mg-40 mg tab Previous Rx's Medication Instructions Recorded aspirin 81 mg tablet,delayed 81 mg PO BID #60 tabs 03/18/23 release oxycodone 5 mg tablet 5 mg PO Q4H PRN pain #40 tabs 03/18/23 ketorolac 10 mg tablet 10 mg PO Q6H PRN pain #14 tabs 03/19/23 hydrocodone 5 mg-acetaminophen 325 1 tab PO Q6H PRN pain #10 tabs 10/14/23 mg tablet hydrocodone 5 mg-acetaminophen 325 1 tab PO QID PRN pain #10 tabs 02/02/24 mg tablet Allergies Allergy/AdvReac Type Severity Reaction Status Date / Time Iodinated Contrast Media AdvReac Mild Hives Verified 05/04/24 12:09 semaglutide [From Wegovy] AdvReac Unknown Verified 05/04/24 12:09 Review of Systems <Lamonte Esparza MD - Last Filed: 05/05/24 07:23> Review of Systems Narrative: see HPI Patient History <Lamonte Esparza MD - Last Filed: 05/05/24 07:23> Medical History History of colon cancer BACILIO treated with BiPAP Surgical History 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 HEAD: Atraumatic. Normocephalic. EYES: Pupils equal round and reactive. Extraocular motions intact. No scleral icterus. No injection or drainage. ENT: Nose without bleeding, purulent drainage. Throat without erythema, tonsillar hypertrophy or exudate. Airway patent. NECK: Trachea midline. Non tender CARDIOVASCULAR: Regular rate and rhythm without murmurs, gallops, or rubs. RESPIRATORY: Clear to auscultation. Breath sounds equal bilaterally. No wheezes, rales, or rhonchi. GASTROINTESTINAL: Abdomen soft, non-tender, nondistended. EXTREMITIES: No edema or joint tenderness. BACK: Nontender without deformity or crepitance. No flank tenderness. NEURO: AOx3. Motor functions grossly nonfocal SKIN: No rash or erythema of visible areas Initial Vital Signs Initial Vital Signs: Vital Signs Temperature 97.5 F L 05/04/24 12:09 Pulse Rate 103 H 05/04/24 12:09 Blood Pressure 132/87 05/04/24 12:09 Pulse Oximetry 94 05/04/24 12:09 Oxygen Delivery Method Room Air 05/04/24 12:09 <Jaime Ponce DO - Last Filed: 05/04/24 22:19> Initial Vital Signs Initial Vital Signs: Vital Signs Temperature 97.5 F L 05/04/24 12:09 Pulse Rate 103 H 05/04/24 12:09 Blood Pressure 132/87 05/04/24 12:09 Pulse Oximetry 94 05/04/24 12:09 Oxygen Delivery Method Room Air 05/04/24 12:09 Course <Lamonte Esparza MD - Last Filed: 05/05/24 07:23> Orders Ordered: Discontinued Medications Diphenhydramine HCl (Diphenhydramine 50 Mg/Ml Vial) 50 mg IV NOW ONE Stop: 05/04/24 16:48 Last Admin: 05/04/24 16:56 Dose: 50 mg Documented By: DERRELL Famotidine (Famotidine 20 Mg/2 Ml Vial) 20 mg IV NOW [facility] Last Admin: 05/04/24 16:57 Dose: 20 mg Documented By: DERRELL POTASSIUM CHLORIDE IN WATER (Potassium Cl 10 Meq/100 Ml [place]) 10 meq in 100 mls @ 100 mls/hr IV Q1H KEESHA Stop: 05/04/24 20:44 Last Infusion: 05/04/24 21:19 Dose: Infused Documented By: Admin: 05/04/24 20:11 Dose: 100 mls/hr Documented By: Infusion: 05/04/24 20:03 Dose: Infused Documented By: Admin: 05/04/24 19:03 Dose: 100 mls/hr Documented By: DERRELL Methylprednisolone (Methylprednisolone 125 Mg/2 Ml Vial) 125 mg IV NOW ONE Stop: 05/04/24 16:48 Last Admin: 05/04/24 16:57 Dose: 125 mg Documented By: DERRELL Ondansetron HCl (Ondansetron 4 Mg/2 Ml Inj) 4 mg IV NOW PRN PRN Reason: Nausea And Vomiting Ondansetron HCl (Ondansetron 4 Mg Odt) 4 mg SL NOW PRN PRN Reason: Nausea And Vomiting Vital Signs Vital signs: Vital Signs - 8 hr 05/04/24 15:19 05/04/24 15:20 05/04/24 15:20 Pulse Rate 95 H 93 H Respiratory Rate Blood Pressure 142/96 H Pulse Oximetry 94 95 05/04/24 15:30 05/04/24 15:30 05/04/24 16:00 Pulse Rate 91 H Respiratory Rate 24 Blood Pressure 144/88 H 139/97 H Pulse Oximetry 93 05/04/24 16:00 05/04/24 16:30 05/04/24 16:30 Pulse Rate 89 88 Respiratory Rate 21 25 H Blood Pressure 151/90 H Pulse Oximetry 95 97 05/04/24 17:00 05/04/24 17:30 05/04/24 18:00 Pulse Rate 82 89 91 H Respiratory Rate 21 35 H 21 Blood Pressure Pulse Oximetry 98 96 96 05/04/24 19:07 05/04/24 19:08 05/04/24 19:08 Pulse Rate 92 H 91 H Respiratory Rate 24 21 Blood Pressure 155/99 H Pulse Oximetry 94 95 05/04/24 19:30 05/04/24 19:30 05/04/24 20:00 Pulse Rate 91 H Respiratory Rate 22 Blood Pressure 160/95 H 149/93 H Pulse Oximetry 93 05/04/24 20:00 05/04/24 20:30 05/04/24 20:30 Pulse Rate 90 94 H Respiratory Rate 23 24 Blood Pressure 149/88 H Pulse Oximetry 92 92 05/04/24 21:00 05/04/24 21:00 Pulse Rate 91 H Respiratory Rate 26 H Blood Pressure 144/89 H Pulse Oximetry 95 <Jaime Ponce DO - Last Filed: 05/04/24 22:19> Orders Ordered: Discontinued Medications Diphenhydramine HCl (Diphenhydramine 50 Mg/Ml Vial) 50 mg IV NOW ONE Stop: 05/04/24 16:48 Last Admin: 05/04/24 16:56 Dose: 50 mg Documented By: DERRELL Famotidine (Famotidine 20 Mg/2 Ml Vial) 20 mg IV NOW KEESHA Last Admin: 05/04/24 16:57 Dose: 20 mg Documented By: DERRELL POTASSIUM CHLORIDE IN WATER (Potassium Cl 10 Meq/100 Ml [place]) 10 meq in 100 mls @ 100 mls/hr IV Q1H KEESHA Stop: 05/04/24 20:44 Last Infusion: 05/04/24 21:19 Dose: Infused Documented By: Admin: 05/04/24 20:11 Dose: 100 mls/hr Documented By: Infusion: 05/04/24 20:03 Dose: Infused Documented By: Admin: 05/04/24 19:03 Dose: 100 mls/hr Documented By: DERRELL Methylprednisolone (Methylprednisolone 125 Mg/2 Ml Vial) 125 mg IV NOW ONE Stop: 05/04/24 16:48 Last Admin: 05/04/24 16:57 Dose: 125 mg Documented By: DERRELL Ondansetron HCl (Ondansetron 4 Mg/2 Ml Inj) 4 mg IV NOW PRN PRN Reason: Nausea And Vomiting Ondansetron HCl (Ondansetron 4 Mg Odt) 4 mg SL NOW PRN PRN Reason: Nausea And Vomiting Vital Signs Vital signs: Vital Signs - 8 hr 05/04/24 15:19 05/04/24 15:20 05/04/24 15:20 Pulse Rate 95 H 93 H Respiratory Rate Blood Pressure 142/96 H Pulse Oximetry 94 95 05/04/24 15:30 05/04/24 15:30 05/04/24 16:00 Pulse Rate 91 H Respiratory Rate 24 Blood Pressure 144/88 H 139/97 H Pulse Oximetry 93 05/04/24 16:00 05/04/24 16:30 05/04/24 16:30 Pulse Rate 89 88 Respiratory Rate 21 25 H Blood Pressure 151/90 H Pulse Oximetry 95 97 05/04/24 17:00 05/04/24 17:30 05/04/24 18:00 Pulse Rate 82 89 91 H Respiratory Rate 21 35 H 21 Blood Pressure Pulse Oximetry 98 96 96 05/04/24 19:07 05/04/24 19:08 05/04/24 19:08 Pulse Rate 92 H 91 H Respiratory Rate 24 21 Blood Pressure 155/99 H Pulse Oximetry 94 95 05/04/24 19:30 05/04/24 19:30 05/04/24 20:00 Pulse Rate 91 H Respiratory Rate 22 Blood Pressure 160/95 H 149/93 H Pulse Oximetry 93 05/04/24 20:00 05/04/24 20:30 05/04/24 20:30 Pulse Rate 90 94 H Respiratory Rate 23 24 Blood Pressure 149/88 H Pulse Oximetry 92 92 05/04/24 21:00 05/04/24 21:00 Pulse Rate 91 H Respiratory Rate 26 H Blood Pressure 144/89 H Pulse Oximetry 95 MDM - GI Bleed <Lamonte Esparza MD - Last Filed: 05/05/24 07:23> Lab Data Attestation: I reviewed the patient's lab results. 05/04/24 19:01 05/04/24 12:30 Labs: Lab Results 05/04/24 05/04/24 05/04/24 Range/Units 12:30 17:42 19:01 WBC 5.9 (4.5-11.0) X10^3/uL RBC 4.13 L (4.5-5.9) X10^6/uL Hgb 14.7 14.2 (13.5-17.5) g/dL Hct 41.7 40.9 L (41-53) % MCV 100.9 H (80-100) fL MCH 35.7 H (26-34) PG MCHC 35.4 (30-36) % RDW 14.3 (11.6-14.8) % Plt Count 177 (150-400) X10^3/uL Neut % (Auto) 54.1 (50-75) % Lymph % (Auto) 29.6 (25-40) % [place] % (Auto) 10.9 (3-14) % Eos % (Auto) 3.1 (2-4) % Baso % (Auto) 2.3 H (0-2) % Neut # (Auto) 3200 (1458-3904) /uL Lymph # (Auto) 1700 (2200-2978) /uL [place] # (Auto) 600 (0-900) /uL Eos # (Auto) 200 (0-450) /uL Baso # (Auto) 100 (0-100) /uL PT 11.3 (9.4-12.5) SECONDS INR 1.0 (0.9-1.3) APTT 30 (25.1-36.5) SECONDS Sodium 138 (137-145) mmol/L Potassium 3.3 L (3.4-5.1) mmol/L Chloride 104 (98-107) mmol/L Carbon Dioxide 27 (22-32) mmol/L BUN 17 (9-20) mg/dL Creatinine 0.72 (0.66-1.25) mg/dL Estimated GFR > 60 (>60) mL/min BUN/Creatinine Ratio 23.6 H (6-22) Glucose 90 (80-110) mg/dL Calcium 9.2 (8.4-10.2) mg/dL Total Bilirubin 0.7 (0.2-1.3) mg/dL AST 33 (17-59) IU/L ALT 31 (<50) IU/L Alkaline Phosphatase 91 (38-126) U/L Total Protein 7.6 (6.3-8.2) g/dL Albumin 4.4 (3.5-5.0) g/dL Globulin 3.2 (1.7-4.1) g/dL Albumin/Globulin Ratio 1.4 (1.0-2.8) Urine Color Yellow Urine Appearance Clear Urine pH 6.0 (4.5-8.0) Ur Specific [place] 1.025 (1.000-1.035) Urine Protein Negative (Negative) Urine Glucose (UA) Negative (Negative) g/dL Urine Ketones Negative (NEGATIVE) Urine Occult Blood Negative (Negative) Urine Nitrate Negative (Negative) Urine Bilirubin Negative (NEGATIVE) Urine Urobilinogen 0.2 (0.2) E.U./dL Ur Leukocyte Esterase Negative (NEGATIVE) Urine RBC None seen (0-5/HPF) Urine WBC None seen (0-5/HPF) Ur Squamous Epith Cells 0-1 /hpf (0-5/HPF) Urine Bacteria None seen (None) Ur Culture Indicated? Cult not indicated Vol Urine Centrifuged 10ml (spun) Blood Type B Positive Antibody Screen Negative 05/04/24 Range/Units 19:30 WBC (4.5-11.0) X10^3/uL RBC (4.5-5.9) X10^6/uL Hgb (13.5-17.5) g/dL Hct (41-53) % MCV (80-100) fL MCH (26-34) PG MCHC (30-36) % RDW (11.6-14.8) % Plt Count (150-400) X10^3/uL Neut % (Auto) (50-75) % Lymph % (Auto) (25-40) % [place] % (Auto) (3-14) % Eos % (Auto) (2-4) % Baso % (Auto) (0-2) % Neut # (Auto) (2678-9070) /uL Lymph # (Auto) (1566-6841) /uL [place] # (Auto) (0-900) /uL Eos # (Auto) (0-450) /uL Baso # (Auto) (0-100) /uL PT 12.7 H (9.4-12.5) SECONDS INR 1.1 (0.9-1.3) APTT (25.1-36.5) SECONDS Sodium (137-145) mmol/L Potassium (3.4-5.1) mmol/L Chloride (98-107) mmol/L Carbon Dioxide (22-32) mmol/L BUN (9-20) mg/dL Creatinine (0.66-1.25) mg/dL Estimated GFR (>60) mL/min BUN/Creatinine Ratio (6-22) Glucose (80-110) mg/dL Calcium (8.4-10.2) mg/dL Total Bilirubin (0.2-1.3) mg/dL AST (17-59) IU/L ALT (<50) IU/L Alkaline Phosphatase (38-126) U/L Total Protein (6.3-8.2) g/dL Albumin (3.5-5.0) g/dL Globulin (1.7-4.1) g/dL Albumin/Globulin Ratio (1.0-2.8) Urine Color Urine Appearance Urine pH (4.5-8.0) Ur Specific [place] (1.000-1.035) Urine Protein (Negative) Urine Glucose (UA) (Negative) g/dL Urine Ketones (NEGATIVE) Urine Occult Blood (Negative) Urine Nitrate (Negative) Urine Bilirubin (NEGATIVE) Urine Urobilinogen (0.2) E.U./dL Ur Leukocyte Esterase (NEGATIVE) Urine RBC (0-5/HPF) Urine WBC (0-5/HPF) Ur Squamous Epith Cells (0-5/HPF) Urine Bacteria (None) Ur Culture Indicated? Vol Urine Centrifuged Blood Type Antibody Screen MDM Narrative Medical decision making narrative: 73-year-old male with history of prior remote hemicolectomy found to be due to multiple polyps, no known cancers, no colostomy, primary reanastomosis, now having bright red blood per rectum, noting blood on toilet paper, no pain, no masses perirectal, no known hemorrhoids. On external inspection there seemed to be no perianal lesions, no obvious hemorrhoids on external view. No active trickle bright red blood on examination. Hemoglobin normal. We discussed imaging to look for causes of inflammation infection that might warrant antibiotics or other treatment measures. History of IV contrast allergy though he has been premedicated success before for contrast imaging. He is amenable to proceeding. IV Solu-Medrol, Benadryl, Pepcid Patient tolerated CT with IV contrast, no adverse reaction so far. CT to be read 1909, CT report still pending, signed out to oncoming ED shift physician Dr. Ponce <Jaime Ponce, DO - Last Filed: 05/04/24 22:19> Lab Data Labs: Lab Results 05/04/24 05/04/24 05/04/24 Range/Units 12:30 17:42 19:01 WBC 5.9 (4.5-11.0) X10^3/uL RBC 4.13 L (4.5-5.9) X10^6/uL Hgb 14.7 14.2 (13.5-17.5) g/dL Hct 41.7 40.9 L (41-53) % MCV 100.9 H (80-100) fL MCH 35.7 H (26-34) PG MCHC 35.4 (30-36) % RDW 14.3 (11.6-14.8) % Plt Count 177 (150-400) X10^3/uL Neut % (Auto) 54.1 (50-75) % Lymph % (Auto) 29.6 (25-40) % [place] % (Auto) 10.9 (3-14) % Eos % (Auto) 3.1 (2-4) % Baso % (Auto) 2.3 H (0-2) % Neut # (Auto) 3200 (3803-8911) /uL Lymph # (Auto) 1700 (3050-7795) /uL [place] # (Auto) 600 (0-900) /uL Eos # (Auto) 200 (0-450) /uL Baso # (Auto) 100 (0-100) /uL PT 11.3 (9.4-12.5) SECONDS INR 1.0 (0.9-1.3) APTT 30 (25.1-36.5) SECONDS Sodium 138 (137-145) mmol/L Potassium 3.3 L (3.4-5.1) mmol/L Chloride 104 (98-107) mmol/L Carbon Dioxide 27 (22-32) mmol/L BUN 17 (9-20) mg/dL Creatinine 0.72 (0.66-1.25) mg/dL Estimated GFR > 60 (>60) mL/min BUN/Creatinine Ratio 23.6 H (6-22) Glucose 90 (80-110) mg/dL Calcium 9.2 (8.4-10.2) mg/dL Total Bilirubin 0.7 (0.2-1.3) mg/dL AST 33 (17-59) IU/L ALT 31 (<50) IU/L Alkaline Phosphatase 91 (38-126) U/L Total Protein 7.6 (6.3-8.2) g/dL Albumin 4.4 (3.5-5.0) g/dL Globulin 3.2 (1.7-4.1) g/dL Albumin/Globulin Ratio 1.4 (1.0-2.8) Urine Color Yellow Urine Appearance Clear Urine pH 6.0 (4.5-8.0) Ur Specific [place] 1.025 (1.000-1.035) Urine Protein Negative (Negative) Urine Glucose (UA) Negative (Negative) g/dL Urine Ketones Negative (NEGATIVE) Urine Occult Blood Negative (Negative) Urine Nitrate Negative (Negative) Urine Bilirubin Negative (NEGATIVE) Urine Urobilinogen 0.2 (0.2) E.U./dL Ur Leukocyte Esterase Negative (NEGATIVE) Urine RBC None seen (0-5/HPF) Urine WBC None seen (0-5/HPF) Ur Squamous Epith Cells 0-1 /hpf (0-5/HPF) Urine Bacteria None seen (None) Ur Culture Indicated? Cult not indicated Vol Urine Centrifuged 10ml (spun) Blood Type B Positive Antibody Screen Negative 05/04/24 Range/Units 19:30 WBC (4.5-11.0) X10^3/uL RBC (4.5-5.9) X10^6/uL Hgb (13.5-17.5) g/dL Hct (41-53) % MCV (80-100) fL MCH (26-34) PG MCHC (30-36) % RDW (11.6-14.8) % Plt Count (150-400) X10^3/uL Neut % (Auto) (50-75) % Lymph % (Auto) (25-40) % [place] % (Auto) (3-14) % Eos % (Auto) (2-4) % Baso % (Auto) (0-2) % Neut # (Auto) (6229-6466) /uL Lymph # (Auto) (7843-0876) /uL [place] # (Auto) (0-900) /uL Eos # (Auto) (0-450) /uL Baso # (Auto) (0-100) /uL PT 12.7 H (9.4-12.5) SECONDS INR 1.1 (0.9-1.3) APTT (25.1-36.5) SECONDS Sodium (137-145) mmol/L Potassium (3.4-5.1) mmol/L Chloride (98-107) mmol/L Carbon Dioxide (22-32) mmol/L BUN (9-20) mg/dL Creatinine (0.66-1.25) mg/dL Estimated GFR (>60) mL/min BUN/Creatinine Ratio (6-22) Glucose (80-110) mg/dL Calcium (8.4-10.2) mg/dL Total Bilirubin (0.2-1.3) mg/dL AST (17-59) IU/L ALT (<50) IU/L Alkaline Phosphatase (38-126) U/L Total Protein (6.3-8.2) g/dL Albumin (3.5-5.0) g/dL Globulin (1.7-4.1) g/dL Albumin/Globulin Ratio (1.0-2.8) Urine Color Urine Appearance Urine pH (4.5-8.0) Ur Specific [place] (1.000-1.035) Urine Protein (Negative) Urine Glucose (UA) (Negative) g/dL Urine Ketones (NEGATIVE) Urine Occult Blood (Negative) Urine Nitrate (Negative) Urine Bilirubin (NEGATIVE) Urine Urobilinogen (0.2) E.U./dL Ur Leukocyte Esterase (NEGATIVE) Urine RBC (0-5/HPF) Urine WBC (0-5/HPF) Ur Squamous Epith Cells (0-5/HPF) Urine Bacteria (None) Ur Culture Indicated? Vol Urine Centrifuged Blood Type Antibody Screen Imaging Data CT scan - abdomen/pelvis: Radiologist's Impression: PROCEDURE: CT ANGIO ABD/PEL GI BLEED INDICATIONS: GI bleeding TECHNIQUE: After the administration of intravenous contrast, 2.5 mm thick sections acquired from the diaphragm to the symphysis. 10 mm maximum-intensity projection (MIP) reformats were then acquired. For radiation dose reduction, the following was used: automated exposure control. COMPARISON: None. FINDINGS: Image Quality: Diagnostic. Abdominal aorta: Normal caliber, mildly tortuous, moderate mixed calcified and noncalcified atherosclerosis in the inferior portion. No evidence of dissection, aneurysm, or rupture. Mesenteric arteries: Mild calcified narrowing the celiac artery origin. Left gastric artery branches diminutive. Hepatic and splenic arteries are normal caliber. Minimal narrowing at the superior mesenteric artery origin. Branches are widely patent. No source of enteric bleeding found. Renal arteries: Single renal arteries bilaterally. Mild to moderate calcification of the proximal artery origins bilaterally. OTHER: Lower Chest: No significant findings. Liver: Scattered subcentimeter cysts. No solid mass. Gallbladder: No wall thickening or calcified stones. Biliary ducts: No biliary dilation. Pancreas: Normal size and morphology without visible ductal dilatation or inflammation. Spleen: Size is within normal limits. Adrenal Glands: No adrenal nodules. Kidneys and Ureters: Symmetric enhancement. No nephrolithiasis or hydronephrosis. No hydroureter. Stomach and Bowel: There is a colorectal anastomosis which appears intact. Most of the colon is decompressed. Normal quantity of proximal colonic stool. The appendix is not seen. Small bowel loops are decompressed. Stomach is decompressed. No suspicious wall thickening or surrounding inflammation. No interloop fluid collection. Peritoneum: No abnormal intraperitoneal fluid. No free air. Ventral Wall: No hernia. Abdominal Nodes: No retroperitoneal or mesenteric adenopathy by size criteria. Vessels: IVC and portal vein are within normal limits. PELVIS: Pelvic Organs: Unremarkable. Bladder: Unremarkable. Pelvic Nodes: No enlarged lymph nodes. Miscellaneous: No inguinal hernias are seen. Bones: No aggressive osseous abnormality. Postoperative and degenerative changes present in the spine. IMPRESSION: No source of enteric bleeding found. Scattered calcified and noncalcified atherosclerosis as described above. Intact colorectal anastomosis. MDM Narrative Medical decision making narrative: 73-year-old male with history of prior remote hemicolectomy found to be due to multiple polyps, no known cancers, no colostomy, primary reanastomosis, now having bright red blood per rectum, noting blood on toilet paper, no pain, no masses perirectal, no known hemorrhoids. On external inspection there seemed to be no perianal lesions, no obvious hemorrhoids on external view. No active trickle bright red blood on examination. Hemoglobin normal. We discussed imaging to look for causes of inflammation infection that might warrant antibiotics or other treatment measures. History of IV contrast allergy though he has been premedicated success before for contrast imaging. He is amenable to proceeding. IV Solu-Medrol, Benadryl, Pepcid Patient tolerated CT with IV contrast, no adverse reaction so far. CT to be read 1909, CT report still pending, signed out to oncoming ED shift physician Dr. Rosario Ponce: Received turned over. Review patient's history and physical and workup up to this point. The CT scan abdomen pelvis does not show any signs of acute hemorrhage. Repeat hemoglobin hematocrit are unchanged. His potassium has been replenished. Is afebrile and benign abdominal exam. Plan will be to discharge patient home to talk with primary doctor about referral to GI or General surgery to have either a colonoscopy or flex sig or anoscopy. No indication for admission to the hospital. He was given return precautions. He expressed understanding and agreement. Discharge Plan Departure Patient Disposition: Home Clinical Impression: Painless rectal bleeding, Hypokalemia, History of colon polyps Instructions: Gastrointestinal Bleeding Activity Restrictions/Additional Instructions: Recommend that you contact your primary care doctor for a follow-up to discuss the indications for a referral to see either General surgery or Gastroenterology. Continue to take all of your medications as directed. Return to the emergency department for new symptoms. Prescriptions: No Action chlorthalidone 25 MG tablet 25 mg PO AMC Qty: 0 finasteride 5 MG tablet 5 mg PO DAILY Qty: 0 allopurinol 100 mg Tablet 400 mg PO DAILY amlodipine 10 mg Tablet 2.5 mg PO DAILY rosuvastatin 5 mg Tablet 2.5 mg PO DAILY potassium chloride 20 mEq Tablet Extended Release 20 meq PO DAILY losartan 50 mg Tablet 50 mg PO ONCE PM docusate sodium 100 mg capsule 250 mg PO BID PRN (Reason: Constipation from narcotic pain meds) ketorolac 10 mg tablet 10 mg PO Q6H PRN (Reason: pain) Qty: 14 0RF coenzyme Q10 [CoQ-10] 100 mg Capsule 200 mg PO DAILY vfukqrne-[id number]-ltsztu-hyalur ac [id number] mg Tablet 2 tab PO DAILY hydrocodone-acetaminophen 5-325 mg tablet 1 tab PO Q6H PRN (Reason: pain) Qty: 10 0RF hydrocodone-acetaminophen 5-325 mg tablet 1 tab PO QID PRN (Reason: pain) Qty: 10 0RF methocarbamol 500 mg Tablet 1,000 mg PO BID tamsulosin 0.4 mg Capsule 0.4 mg PO DAILY gabapentin 300 mg Capsule 600 mg PO BID solifenacin 10 mg Tablet 10 mg PO DAILY oxycodone 5 mg tablet 5 mg PO Q4H PRN (Reason: pain) Qty: 40 0RF Rx Instructions: postop exempt aspirin 81 mg tablet,delayed release (DR/EC) 81 mg PO BID Qty: 60 0RF Referrals: Dilshad Barton PA-C [Primary Care Provider] - Stand Alone Forms: Patient Portal/API
[2024-05-04] MEDS: diphenhydrAMINE 50 MG/ML VIAL IV (16:56)
[2024-05-04] MEDS: methylPREDNISolone 125 MG/2 ML VIAL IV (16:57)
[2024-05-04] MEDS: FAMOTIDINE 20 MG/2 ML VIAL IV (16:57)
[2024-05-04 17:55] LABS: Appearance Urine UA CLEAR; Bilirubin Urine UA NEGATIVE (NEGATIVE); Color Urine UA YELLOW; Glucose Urine UA NEGATIVE (Negative); Ketones Urine UA NEGATIVE (NEGATIVE); Leukocyte Esterase Urine UA NEGATIVE (NEGATIVE); Nitrite Urine UA NEGATIVE (Negative); Occult Blood Urine UA NEGATIVE (Negative); Protein Urine UA NEGATIVE (Negative); Specific Gravity Urine UA 1.025 (1.000-1.035); Urobilinogen Urine UA 0.2 E.U./dL (0.2)
[2024-05-04 18:08] LABS: Bacteria Urine None Seen; Culture Indicated Urine Cult Not Indicated; RBC Urine None Seen (0-5/HPF); Squamous Epithelial Cell Urine 0-1 /HPF (0-5/HPF); Urine Volume 10mL (spun); WBC Urine None Seen (0-5/HPF)
[2024-05-04] MEDS: POTASSIUM CHLORIDE IN WATER 10 MEQ/100 ML PIGGYBACK 100 MEQ IV ×2 (19:03→20:11)
[2024-05-04 19:17] LABS: Hematocrit 40.9 % (41-53); Hemoglobin 14.2 g/dL (13.5-17.5)
[2024-05-04 20:00] LABS: INR 1.1 (0.9-1.3); Prothrombin Time 12.7 SECONDS (9.4-12.5)
== END 2024-05-04 21:36 | disposition home or self-care (01) ==
PROVIDERS: Emergency Medicine; Emergency Provider Emergency Medicine; PCP Physician Assistant
DX: K62.5 Hemorrhage of anus and rectum (principal); E87.6 Hypokalemia; Z86.0100 Personal history of colon polyps, unspecified
CPT/HCPCS: 36415; 74174; 80053; 81001; 85014; 85018; 85025; 85610; 85730; 86850; 86900; 86901; 96365; 96366; 96375; 99284; J1200; J2919; Q9967

== ENCOUNTER 2024-09-08 10:28 | Emergency (ER) | payer OTHER, SELFPAY ==
[2022-01-06 14:00] VITALS: BMI 39.1
[2024-09-08 10:34] VITALS: BP 141/99; PULSE 87; RESP 16; TEMP 36.4; O2SAT 96; BMI 38.7
[2024-09-08 11:47] LABS: Appearance Urine UA CLOUDY; Bilirubin Urine UA NEGATIVE (NEGATIVE); Color Urine UA YELLOW; Glucose Urine UA NEGATIVE (Negative); Ketones Urine UA NEGATIVE (NEGATIVE); Leukocyte Esterase Urine UA 3+ (NEGATIVE); Nitrite Urine UA NEGATIVE (Negative); Occult Blood Urine UA TRACE-INTACT (Negative); Protein Urine UA NEGATIVE (Negative); Specific Gravity Urine UA 1.025 (1.000-1.035); Urobilinogen Urine UA 0.2 E.U./dL (0.2)
--- NOTE | 2024-09-08 11:50 | ED_ITS ---
HPI - Male Genitourinary <Julieth Saul PA-C - Last Filed: 09/08/24 17:27> General Chief complaint: Urogenital-Male Stated complaint: kidney pain causing pain when walking Time Seen by Provider: 09/08/24 11:04 Mode of arrival: Wheelchair History of Present Illness HPI Narrative: 73-year-old CT patient with history of left knee replacement, UTI, urinary incontinence, and chronic left hip pain presents with concern for possible persistent or recurrent UTI. Patient states for about the past week he has been having pain in his flanks on both sides more prominent on the left. He also acknowledges that he has a chronic problem with his left hip for which he has been working with the CT providers on and he is unsure if some of his ?flank pain? could be related to his hip. He states about 6 weeks ago he had a Botox injection done to attempt to resolve his mild urinary incontinence issues. He states that unfortunately this actually made his symptoms worse and a catheter had to be placed as he was leaking constantly. He had the catheter in for 6 weeks and about a week prior to having it taken out he was found to have a urinary tract infection and says he was placed on Macrobid. He states that the prescription was not sent in to a pharmacy he had access to initially and when he did get a prescription it was only for 5 days instead of the 8 days they originally recommended. He took it for 5 days and then had about a 2 day break from taking it when he had a colonoscopy done on Tuesday 6 days ago. He then continued the Macrobid for 3 additional days and stopped it on Tuesday. He states his urine has been dark and off smelling and he had his catheter removed yesterday. He states that yesterday at the CT they showed him how to self- catheterize and after removing his catheter that they flushed his bladder out with saline. He is concerned given his flank pain and persistent cloudy urine that he may have a UTI and would like evaluation for this today. Patient also endorses chronic problems with his left hip and states it is painful to bear weight on and sometimes he feels pain shooting up from his knee towards his hip. He notes he had a knee replacement surgery at the CT and he says that they ?botched it? and have advised that they need to go back in and do a revision. His left hip pain has been going on on and off for months. He denies fevers, chills, nausea, vomiting, diarrhea, constipation, abdominal pain or other symptoms Related Data Home Medications Medication Instructions Recorded Confirmed chlorthalidone 25 mg tablet 25 mg PO [facility] ##0 04/11/17 08/17/23 finasteride 5 mg tablet 5 mg PO DAILY ##0 04/11/17 08/17/23 allopurinol 100 mg tablet 400 mg PO DAILY 01/05/22 08/17/23 amlodipine 10 mg tablet 2.5 mg PO DAILY 01/05/22 08/17/23 potassium chloride 20 mEq 20 meq PO DAILY 01/05/22 08/17/23 tablet,extended release rosuvastatin 5 mg tablet 2.5 mg PO DAILY 01/05/22 08/17/23 docusate sodium 100 mg capsule 250 mg PO BID PRN Constipation 08/17/22 08/17/23 from narcotic pain meds losartan 50 mg tablet 50 mg PO ONCE PM 08/17/22 08/17/23 gabapentin 300 mg capsule 600 mg PO BID 02/28/23 08/17/23 methocarbamol 500 mg tablet 1,000 mg PO BID 02/28/23 08/17/23 solifenacin 10 mg tablet 10 mg PO DAILY 02/28/23 08/17/23 tamsulosin 0.4 mg capsule 0.4 mg PO DAILY 02/28/23 08/17/23 coenzyme Q10 100 mg capsule 200 mg PO DAILY 08/17/23 08/17/23 (CoQ-10) klhmedkyvq-apanz-zrovor-hyaluronic 2 tab PO DAILY 08/17/23 08/17/23 acid 500 mg-100 mg-500 mg-40 mg tab Previous Rx's Medication Instructions Recorded aspirin 81 mg tablet,delayed 81 mg PO BID #60 tabs 03/18/23 release oxycodone 5 mg tablet 5 mg PO Q4H PRN pain #40 tabs 03/18/23 ketorolac 10 mg tablet 10 mg PO Q6H PRN pain #14 tabs 03/19/23 hydrocodone 5 mg-acetaminophen 325 1 tab PO Q6H PRN pain #10 tabs 10/14/23 mg tablet hydrocodone 5 mg-acetaminophen 325 1 tab PO QID PRN pain #10 tabs 02/02/24 mg tablet amoxicillin 875 mg-potassium 1 tab PO Q12H complicated UTI 10 09/08/24 clavulanate 125 mg tablet days #20 tabs Allergies Allergy/AdvReac Type Severity Reaction Status Date / Time Iodinated Contrast Media AdvReac Mild Hives Verified 05/04/24 12:09 semaglutide [From Wegovy] AdvReac Unknown Verified 05/04/24 12:09 Review of Systems <Julieth Saul PA-C - Last Filed: 09/08/24 17:27> Review of Systems Narrative: See HPI Patient History <Julieth Saul PA-C - Last Filed: 09/08/24 17:27> Medical History History of colon cancer BACILIO treated with BiPAP Surgical History 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 Overweight patient, in mild distress. HEAD: Atraumatic. Normocephalic. EYES: Pupils equal round and reactive. Extraocular motions intact. No scleral icterus. No injection or drainage. ENT: Nose without bleeding, purulent drainage. Airway patent. NECK: Trachea midline. Non tender CARDIOVASCULAR: Regular rate and rhythm without murmurs, gallops, or rubs. RESPIRATORY: Clear to auscultation. Breath sounds equal bilaterally. No wheezes, rales, or rhonchi. GASTROINTESTINAL: Abdomen soft, there is mild suprapubic tenderness, otherwise non-tender, nondistended--flank pain is not reproducible on exam except for mild left flank tenderness with percussion. EXTREMITIES: No edema or joint tenderness. BACK: There is slight tenderness over the left low lumbosacral region laterally. Otherwise Nontender without deformity or crepitance. NEURO: AOx3. Patient ambulates with a cane. SKIN: No rash or erythema of visible areas Initial Vital Signs Initial Vital Signs: Vital Signs Temperature 97.5 F L 09/08/24 10:34 Pulse Rate 87 09/08/24 10:34 Respiratory Rate 16 09/08/24 10:34 Blood Pressure 141/99 H 09/08/24 10:34 Pulse Oximetry 96 09/08/24 10:34 Oxygen Delivery Method Room Air 09/08/24 10:34 <Lenora Wesley DO - Last Filed: 09/09/24 08:49> Initial Vital Signs Initial Vital Signs: Vital Signs Temperature 97.5 F L 09/08/24 10:34 Pulse Rate 87 09/08/24 10:34 Respiratory Rate 16 09/08/24 10:34 Blood Pressure 141/99 H 09/08/24 10:34 Pulse Oximetry 96 09/08/24 10:34 Oxygen Delivery Method Room Air 09/08/24 10:34 Course <Julieth Saul PA-C - Last Filed: 09/08/24 17:27> Orders Ordered: Discontinued Medications Ceftriaxone Sodium (Ceftriaxone 1,000 Mg Vial) 650 mg IM NOW ONE Stop: 09/08/24 13:42 Last Admin: 09/08/24 14:01 Dose: 650 mg Documented By: DERRELL Ceftriaxone Sodium 1,000 mg/ (Sodium Chloride) 100 mls @ 200 mls/hr IV NOW ONE Stop: 09/08/24 12:45 Last Infusion: 09/08/24 13:41 Dose: Infused Documented By: Admin: 09/08/24 13:19 Dose: 200 mls/hr Documented By: AYANA Lidocaine HCl (Lidocaine 1% (Pf) 5 Ml) 2.1 ml INJ NOW ONE Stop: 09/08/24 13:42 Last Admin: 09/08/24 14:02 Dose: Not Given Documented By: DERRELL Vital Signs Vital signs: Vital Signs - 8 hr 09/08/24 10:34 09/08/24 14:29 Temperature 97.5 F L Pulse Rate 87 93 H Respiratory Rate 16 Blood Pressure 141/99 H 134/83 Pulse Oximetry 96 94 Oxygen Delivery Method Room Air Room Air <Lenora Wesley DO - Last Filed: 09/09/24 08:49> Orders Ordered: Discontinued Medications Ceftriaxone Sodium (Ceftriaxone 1,000 Mg Vial) 650 mg IM NOW ONE Stop: 09/08/24 13:42 Last Admin: 09/08/24 14:01 Dose: 650 mg Documented By: DERRELL Ceftriaxone Sodium 1,000 mg/ (Sodium Chloride) 100 mls @ 200 mls/hr IV NOW ONE Stop: 09/08/24 12:45 Last Infusion: 09/08/24 13:41 Dose: Infused Documented By: Admin: 09/08/24 13:19 Dose: 200 mls/hr Documented By: AYANA Lidocaine HCl (Lidocaine 1% (Pf) 5 Ml) 2.1 ml INJ NOW ONE Stop: 09/08/24 13:42 Last Admin: 09/08/24 14:02 Dose: Not Given Documented By: DERRELL Vital Signs Vital signs: Vital Signs - 8 hr 09/08/24 10:34 09/08/24 14:29 Temperature 97.5 F L Pulse Rate 87 93 H Respiratory Rate 16 Blood Pressure 141/99 H 134/83 Pulse Oximetry 96 94 Oxygen Delivery Method Room Air Room Air MDM - Male Genitourinary <Julieth Saul PA-C - Last Filed: 09/08/24 17:27> Differential Diagnosis Differential diagnosis: Likely urinary tract infection and other (Catheter associated UTI, complicated UTI) Lab Data Attestation: I reviewed the patient's lab results. 09/08/24 12:15 09/08/24 13:12 Labs: Lab Results 09/08/24 09/08/24 09/08/24 Range/Units 11:30 12:15 13:12 WBC 9.7 (4.5-11.0) X10^3/uL RBC 3.87 L (4.5-5.9) X10^6/uL Hgb 13.8 (13.5-17.5) g/dL Hct 40.4 L (41-53) % MCV 104.2 H (80-100) fL MCH 35.6 H (26-34) PG MCHC 34.2 (30-36) % RDW 15.3 H (11.6-14.8) % Plt Count 171 (150-400) X10^3/uL Neut % (Auto) 58.4 (50-75) % Lymph % (Auto) 26.6 (25-40) % [place] % (Auto) 9.6 (3-14) % Eos % (Auto) 3.7 (2-4) % Baso % (Auto) 1.7 (0-2) % Neut # (Auto) 5700 (3376-9451) /uL Lymph # (Auto) 2600 (2583-0628) /uL [place] # (Auto) 900 (0-900) /uL Eos # (Auto) 400 (0-450) /uL Baso # (Auto) 200 H (0-100) /uL Sodium 141 (137-145) mmol/L Potassium 3.8 (3.4-5.1) mmol/L Chloride 106 (98-107) mmol/L Carbon Dioxide 29 (22-32) mmol/L BUN 17 (9-20) mg/dL Creatinine 0.81 (0.66-1.25) mg/dL Estimated GFR > 60 (>60) mL/min BUN/Creatinine Ratio 21.0 (6-22) Glucose 95 (80-110) mg/dL Calcium 9.3 (8.4-10.2) mg/dL Total Bilirubin 1.1 (0.2-1.3) mg/dL AST 40 (17-59) IU/L ALT 35 (<50) IU/L Alkaline Phosphatase 80 (38-126) U/L Total Protein 7.7 (6.3-8.2) g/dL Albumin 4.5 (3.5-5.0) g/dL Globulin 3.2 (1.7-4.1) g/dL Albumin/Globulin Ratio 1.4 (1.0-2.8) Urine Color Yellow Urine Appearance Cloudy Urine pH 6.0 (4.5-8.0) Ur Specific [place] 1.025 (1.000-1.035) Urine Protein Negative (Negative) Urine Glucose (UA) Negative (Negative) g/dL Urine Ketones Negative (NEGATIVE) Urine Occult Blood Trace-intact (Negative) Urine Nitrate Negative (Negative) Urine Bilirubin Negative (NEGATIVE) Urine Urobilinogen 0.2 (0.2) E.U./dL Ur Leukocyte Esterase 3+ H (NEGATIVE) Urine RBC 1-5/hpf (0-5/HPF) Urine WBC 10-30/hpf H (0-5/HPF) Ur Squamous Epith Cells 0-1 /hpf (0-5/HPF) Urine Bacteria Moderate (10-30) H (None) Ur Culture Indicated? Specimen cultured Vol Urine Centrifuged 10ml (spun) MDM Narrative Medical decision making narrative: This is a 73-year-old CT patient presenting with concern for possible UTI in the setting of recent urinary catheterization for 6 weeks removed yesterday and recent UTI treated inconsistently with Macrobid for 8 days with Macrobid completed Tuesday 4 days ago. Patient's urine dip is very suggestive of UTI, also has had flank pain for about a week and has mild left flank tenderness on exam with percussion. He is afebrile, not tachycardic and does not appear septic however given his recent urinary catheterization and history, concern for developing pyelonephritis/kidney involvement and ceftriaxone administered in the emergency department followed by 10 days of Augmentin for complicated UTI. Urine sent for culture. Imaging was not obtained as patient had mild flank tenderness and mild suprapubic tenderness but otherwise no concerning abdominal exam findings. Labs including CBC and CMP were obtained and were generally unremarkable/consistent with patient's baseline. Patient was [facility] pain and knee issues. I feel these are noncontributory to his urinary symptoms. Return precautions provided, follow-up plan discussed, all questions answered. <Lenora Wesley, DO - Last Filed: 09/09/24 08:49> Lab Data Labs: Lab Results 09/08/24 09/08/24 09/08/24 Range/Units 11:30 12:15 13:12 WBC 9.7 (4.5-11.0) X10^3/uL RBC 3.87 L (4.5-5.9) X10^6/uL Hgb 13.8 (13.5-17.5) g/dL Hct 40.4 L (41-53) % MCV 104.2 H (80-100) fL MCH 35.6 H (26-34) PG MCHC 34.2 (30-36) % RDW 15.3 H (11.6-14.8) % Plt Count 171 (150-400) X10^3/uL Neut % (Auto) 58.4 (50-75) % Lymph % (Auto) 26.6 (25-40) % [place] % (Auto) 9.6 (3-14) % Eos % (Auto) 3.7 (2-4) % Baso % (Auto) 1.7 (0-2) % Neut # (Auto) 5700 (8033-4476) /uL Lymph # (Auto) 2600 (9217-1311) /uL [place] # (Auto) 900 (0-900) /uL Eos # (Auto) 400 (0-450) /uL Baso # (Auto) 200 H (0-100) /uL Sodium 141 (137-145) mmol/L Potassium 3.8 (3.4-5.1) mmol/L Chloride 106 (98-107) mmol/L Carbon Dioxide 29 (22-32) mmol/L BUN 17 (9-20) mg/dL Creatinine 0.81 (0.66-1.25) mg/dL Estimated GFR > 60 (>60) mL/min BUN/Creatinine Ratio 21.0 (6-22) Glucose 95 (80-110) mg/dL Calcium 9.3 (8.4-10.2) mg/dL Total Bilirubin 1.1 (0.2-1.3) mg/dL AST 40 (17-59) IU/L ALT 35 (<50) IU/L Alkaline Phosphatase 80 (38-126) U/L Total Protein 7.7 (6.3-8.2) g/dL Albumin 4.5 (3.5-5.0) g/dL Globulin 3.2 (1.7-4.1) g/dL Albumin/Globulin Ratio 1.4 (1.0-2.8) Urine Color Yellow Urine Appearance Cloudy Urine pH 6.0 (4.5-8.0) Ur Specific [place] 1.025 (1.000-1.035) Urine Protein Negative (Negative) Urine Glucose (UA) Negative (Negative) g/dL Urine Ketones Negative (NEGATIVE) Urine Occult Blood Trace-intact (Negative) Urine Nitrate Negative (Negative) Urine Bilirubin Negative (NEGATIVE) Urine Urobilinogen 0.2 (0.2) E.U./dL Ur Leukocyte Esterase 3+ H (NEGATIVE) Urine RBC 1-5/hpf (0-5/HPF) Urine WBC 10-30/hpf H (0-5/HPF) Ur Squamous Epith Cells 0-1 /hpf (0-5/HPF) Urine Bacteria Moderate (10-30) H (None) Ur Culture Indicated? Specimen cultured Vol Urine Centrifuged 10ml (spun) Discharge Plan Departure Patient Disposition: Home Clinical Impression: Complicated urinary tract infection, Chronic left hip pain Activity Restrictions/Additional Instructions: *You have been diagnosed with [complicated urinary tract infection] *What to do: *Please continue to take your regular medications as directed. [X ] New medication prescriptions sent to your pharmacy: [Augmentin] [ ] New medication written as a paper prescription [ ] No new medications given *Please follow up with your primary care provider in 2-3 days, call for an appointment. Let them know you were seen in the Emergency Department and that we ask that you be seen in follow up. We will electronically transmit a record of today's note if your PCP is in our system. You came into the ER today with concern for a return of or persistent UTI. You had a catheter in place for 6 weeks and took Macrobid for a U[facility] that [facility]. And had your catheter out yesterday. Your urine dip today definitely looks concerning for UTI still. We gave you ceftriaxone antibiotic today in the emergency department and I sent in a prescription for a 10 day course of Augmentin. I would like you to take all his medication even if your symptoms resolve. If you do have fevers chills or worsening symptoms please make sure you seek re-evaluation immediately. Your labs looked okay today and your vital signs also looked good. We are still waiting on the urine culture results to show the type of bacteria involved. Regarding your persistent and ongoing left hip pain I would recommend trying Tylenol more consistently to see if this helps. And continue to work with your [facility] providers regarding this. I hope you feel better soon. *If you do not have a primary care provider please contact the [facility] line at [phone]. They will ask some questions about your medical history and help get you set up with a doctor in the community. *Return to Emergency Department if you should have any new, worsening or concerning symptoms, such as [fever greater than 101 F, shaking chills, worsening pain, persistent vomiting or other bothersome symptoms] Prescriptions: New amoxicillin-pot clavulanate 875-125 mg tablet 1 tab PO Q12H 10 Days Qty: 20 0RF No Action chlorthalidone 25 MG tablet 25 mg PO [facility]CC Qty: 0 finasteride 5 MG tablet 5 mg PO DAILY Qty: 0 allopurinol 100 mg Tablet 400 mg PO DAILY amlodipine 10 mg Tablet 2.5 mg PO DAILY rosuvastatin 5 mg Tablet 2.5 mg PO DAILY potassium chloride 20 mEq Tablet Extended Release 20 meq PO DAILY losartan 50 mg Tablet 50 mg PO ONCE PM docusate sodium 100 mg capsule 250 mg PO BID PRN (Reason: Constipation from narcotic pain meds) ketorolac 10 mg tablet 10 mg PO Q6H PRN (Reason: pain) Qty: 14 0RF coenzyme Q10 [CoQ-10] 100 mg Capsule 200 mg PO DAILY pusjkslo-tkha-crfche-hyalur ac [id number] mg Tablet 2 tab PO DAILY hydrocodone-acetaminophen 5-325 mg tablet 1 tab PO Q6H PRN (Reason: pain) Qty: 10 0RF hydrocodone-acetaminophen 5-325 mg tablet 1 tab PO QID PRN (Reason: pain) Qty: 10 0RF methocarbamol 500 mg Tablet 1,000 mg PO BID tamsulosin 0.4 mg Capsule 0.4 mg PO DAILY gabapentin 300 mg Capsule 600 mg PO BID solifenacin 10 mg Tablet 10 mg PO DAILY oxycodone 5 mg tablet 5 mg PO Q4H PRN (Reason: pain) Qty: 40 0RF Rx Instructions: postop exempt aspirin 81 mg tablet,delayed release (DR/EC) 81 mg PO BID Qty: 60 0RF Referrals: Dilshad Barton PA-C [Primary Care Provider] - Stand Alone Forms: Patient Portal/API/Survey ED Sign-out <Lenora Wesley DO - Last Filed: 09/09/24 08:49> Cosign ED Attending [place] Attestation: I was available for consultation.
[2024-09-08 12:06] LABS: Bacteria Urine Moderate (10-30); Culture Indicated Urine Specimen Cultured; RBC Urine 1-5/HPF (0-5/HPF); Squamous Epithelial Cell Urine 0-1 /HPF (0-5/HPF); Urine Volume 10mL (spun); WBC Urine 10-30/HPF (0-5/HPF)
[2024-09-08 12:27] LABS: Add Manual Diff / Slide Review NO; Basophils Absolute Auto 200 /uL (0-100); Basophils Percent Auto 1.7 % (0-2); Eosinophils Absolute Auto 400 /uL (0-450); Eosinophils Percent Auto 3.7 % (2-4); Hematocrit 40.4 % (41-53); Hemoglobin 13.8 g/dL (13.5-17.5); Lymphocytes Absolute Auto 2600 /uL (1100-4500); Lymphocytes Percent Auto 26.6 % (25-40); Mean Corpuscular HGB Conc 34.2 % (30-36); Mean Corpuscular Hemoglobin 35.6 PG (26-34); Mean Corpuscular Volume 104.2 fL (80-100); Monocytes Absolute Auto 900 /uL (0-900); Monocytes Percent Auto 9.6 % (3-14); Neutrophils Absolute Auto 5700 /uL (1500-7000); Neutrophils Percent Auto 58.4 % (50-75); Platelet Count 171 X10^3/uL (150-400); Red Blood Cell Count 3.87 X10^6/uL (4.5-5.9); Red Cell Distribution Width 15.3 % (11.6-14.8); White Blood Cell Count 9.7 X10^3/uL (4.5-11.0)
[2024-09-08] MEDS: cefTRIAXone 1,000 MG in SODIUM CHLORIDE 0.9% 100 ML 200 MG IV (13:19)
[2024-09-08 13:29] LABS: Alanine Aminotransferase 35 IU/L (<50); Albumin 4.5 g/dL (3.5-5.0); Albumin Globulin Ratio 1.4 (1.0-2.8); Alkaline Phosphatase 80 U/L (38-126); Aspartate Aminotransferase 40 IU/L (17-59); Bilirubin Total 1.1 mg/dL (0.2-1.3); Blood Urea Nitrogen 17 mg/dL (9-20); Calcium 9.3 mg/dL (8.4-10.2); Carbon Dioxide 29 mmol/L (22-32); Chloride 106 mmol/L (98-107); Estimated Glomerular Filt Rate > 60 mL/min (>60); Globulin 3.2 g/dL (1.7-4.1); Glucose 95 mg/dL (80-110); HEMOLYSIS < 15 (0-50); Potassium 3.8 mmol/L (3.4-5.1); Sodium 141 mmol/L (137-145); Total Protein 7.7 g/dL (6.3-8.2)
--- NOTE | 2024-09-08 13:43 | PC.NURSE ---
Patient line infiltrated. Patient was agreeable to having remainder of the medication through IM injection. Provider agreed and placed the order. This RN called pharmacy to get new medication.
[2024-09-08] MEDS: cefTRIAXone 1,000 MG VIAL 650 MG IM (14:01)
[2024-09-08 14:29] VITALS: BP 134/83; PULSE 93; O2SAT 94
== END 2024-09-08 14:35 | disposition home or self-care (01) ==
PROVIDERS: Emergency Provider Student in an Organized Health Care Education/Training Program; PCP Physician Assistant
DX: N39.0 Urinary tract infection, site not specified (principal); M25.552 Pain in left hip
CPT/HCPCS: 80053; 81001; 85025; 87077; 87086; 87186; 96365; 96372; 99284; J0696

== ENCOUNTER 2025-01-16 08:02 | Inpatient (IN) | payer OTHER, SELFPAY ==
[2022-01-06 14:00] VITALS: BMI 39.1
[2025-01-16] VITALS (46 sets, daily range): BP systolic 77–162; BP diastolic 44–87; PULSE 88–197; RESP 14–30; TEMP 36.8–37; O2SAT 91–99; BMI 40.6; BMI 38.9
--- NOTE | 2025-01-16 | DI.US.S_ITS ---
PROCEDURE: US PERIPH VENOUS LOW EXTREM LT INDICATIONS: SWELLING TECHNIQUE: Real-time imaging, as well as color and pulse Doppler interrogation, were performed of the lower extremity deep veins from the inguinal ligament to the popliteal fossa, with documentation of the visualized calf veins. COMPARISON: None. FINDINGS: The common femoral, femoral, popliteal, and the visualized calf veins are normally compressible, and free of intraluminal thrombus. Color and pulse Doppler demonstrate normal phasic intraluminal flow. There is normal augmentation response to distal compression maneuver. Calf veins are not well seen secondary to edema. IMPRESSION: No findings of lower extremity deep venous thrombosis. Dictated by: Carmelo Andres M.D. on 01/16/2025 at 13:57 Approved by: Carmelo Andres M.D. on 01/16/2025 at 13:59
--- NOTE | 2025-01-16 | DI.RAD.S_ITS ---
PROCEDURE: XR KNEE LT 1TO2V INDICATIONS: Fall r/o fracture TECHNIQUE: Two views of the knee were acquired. COMPARISON: [facility], CR, XR KNEE LT 3V, 02/02/2024, 16:40. [facility], CR, XR KNEE LT 3V, 03/19/2023, 11:17. FINDINGS: Bones: No fractures or dislocations. Left knee arthroplasty is stable in appearance without evidence of complication. No suspicious bony lesions. Soft tissues: Small joint effusion. No suspicious soft tissue calcifications. IMPRESSION: No acute osseous abnormality. If pain persists with conservative management, consider repeat x-ray in 10-14 days or cross-sectional imaging. Dictated by: Carmelo Andres M.D. on 01/16/2025 at 13:45 Approved by: Carmelo Andres M.D. on 01/16/2025 at 13:46
--- NOTE | 2025-01-16 | DI.RAD.S_ITS ---
PROCEDURE: XR ELBOW RT 2V INDICATIONS: Fall, R elbow pain TECHNIQUE: 2 views of the elbow were acquired. COMPARISON: None. FINDINGS: Bones: No fractures or dislocations. No suspicious bony lesions. Soft tissues: No elbow joint effusion. IV in place. No suspicious soft tissue calcifications. IMPRESSION: No acute osseous abnormality. If pain persists with conservative management, consider repeat x-ray in 10-14 days or cross-sectional imaging. Dictated by: Carmelo Andres M.D. on 01/16/2025 at 13:46 Approved by: Carmelo Andres M.D. on 01/16/2025 at 13:51
--- NOTE | 2025-01-16 | DI.ECHO.S_ITS ---
[facility]+ [facility] : : [address] : : [place] : : [id number] : : Phone: [phone] Echocardiogram Report + + :Name: JORGE A HEADLEY Study Date: 01/16/2025 Height: 75 in : :[facility] ReadingLocation: Weight: 325 lb : : Gender: Male BSA: 2.7 m2 : :: 1950 Age: 74 yrs BP: 153/86 mmHg: :Reason For Study: SHORTNESS OF BREATH, ELEVATED TROPONIN : :Ordering Physician: BARRINGTON, : :SILVER SAM Performed By: Candy Alan : :Referring: SILVER FERRIS : + + Interpretation Summary 1) Mildly increased left ventricular thickness (concentric) with normal size, normal wall motion, and normal systolic function (EF 55-60%). 2) Mildly enlarged right ventricle with normal function. 3) No significant valvular abnormalities. 4) No prior Echo available for comparison. Procedure: A two-dimensional transthoracic echocardiogram with color flow and Doppler was performed. The study quality was technically difficult. There is no prior echocardiogram noted for this patient. The patient was in sinus rhythm with heart rates between 84-99 bpm during the exam. Left Ventricle: The left ventricle is normal in size. There is mild concentric left ventricular hypertrophy. The ejection fraction is estimated to be 55-60%. Left ventricular systolic function appears normal without focal wall motion abnormalities. Diastolic parameters suggest a relaxation abnormality of the left ventricle, consistent with probable normal filling pressures. Right Ventricle: The right ventricle is mildly dilated. The right ventricular systolic function is normal. Atria: The left atrial size is normal. Right atrial size is normal. There is no Doppler evidence for an interatrial shunt. Mitral Valve: The mitral valve leaflets appear mildly thickened, but open well. There is trace mitral regurgitation. Aortic Valve: The aortic valve is grossly normal. The aortic valve is slightly calcified. There is no aortic valve stenosis. No aortic regurgitation is present. Tricuspid Valve: The tricuspid valve is not well visualized, but is grossly normal. There is trace tricuspid regurgitation. Pulmonic Valve: The pulmonic valve is not well visualized. There is no pulmonic valvular regurgitation. Great Vessels: The aortic root is normal size. The ascending aorta could not be visualized. The inferior vena cava was not well visualized. Pericardium/ Pleura There is no pericardial effusion. There is no pleural effusion. MMode/2D Measurements & Calculations LVIDd: 4.4 cm LVOT diam: 2.3 cm LVIDs: 3.3 cm Ao root diam: 3.7 cm FS: 25.3 % Ao Arch Diam (Prox Trans): 3.7 cm IVSd: 1.3 cm LVPWd: 1.1 cm LV montgomery. diameter/BSA (cm/m^2): 1.6 LV sys. diameter/BSA (cm/m^2): 1.2 LA A2 area: 20.2 cm2 RA long axis: 5.3 cm LA A4 area: 20.9 cm2 RA area: 20.1 cm2 LA length (vol): 5.8 cm RA vol: 65.0 ml LA vol: 62.1 ml RA : 24.1 ml/m2 LA vol index: 23.0 ml/m2 RVD1 (basal): 4.4 cm RVD2 (mid): 3.6 cm TAPSE: 2.3 cm Doppler Measurements & Calculations Ao V2 max: 143.2 cm/sec LVOT Max Cb: 90.2 cm/sec Ao V2 mean: 103.6 cm/sec LV V1 max P.3 mmHg Ao max P.2 mmHg LV V1 VTI: 16.5 cm Ao mean P.8 mmHg CHINTAN(I,D): 2.7 cm2 Ao V2 VTI: 26.1 cm CHINTAN(V,D): 2.7 cm2 sev ratio: 0.63 CHINTAN indexed to BSA (cm^2/m^2): 0.99 MV E max cb: 62.8 cm/sec PA V2 max: 117.7 cm/sec MV A max cb: 89.5 cm/sec PA V2 mean: 78.5 cm/sec MV E/A: 0.70 PA mean P.8 mmHg Med Peak E' Cb: 9.3 cm/sec E/E' med: 6.7 Lat Peak E' Cb: 11.9 cm/sec E/E' lat: 5.3 E/e' average: 6.0 MV dec time: 0.21 sec SV(LVOT): 69.4 ml Reading Physician:05:01 PM
--- NOTE | 2025-01-16 | DI.RAD.S_ITS ---
PROCEDURE: XR TIBIA FIBULA LT 2V INDICATIONS: fall, pain in L leg TECHNIQUE: 2 views of the tibia and fibula were acquired. COMPARISON: None. FINDINGS: Bones: No fractures or dislocations. Left knee arthroplasty in place. No suspicious bony lesions. Soft tissues: No suspicious soft tissue calcifications or masses. IMPRESSION: No acute osseous abnormality. If pain persists with conservative management, consider repeat x-ray in 10-14 days or cross-sectional imaging. Dictated by: Carmelo Andres M.D. on 01/16/2025 at 13:41 Approved by: Carmelo Andres M.D. on 01/16/2025 at 13:44
--- NOTE | 2025-01-16 07:37 | DI.RAD.S_ITS ---
PROCEDURE: XR CHEST 1V INDICATIONS: palpitations TECHNIQUE: One view of the chest was acquired. COMPARISON: [facility], CHEST FOR PICC PLACEMENT, 04/13/2017, 16:01. [facility], CHEST 1 VIEW, 04/10/2017, 9:43. FINDINGS: Surgical changes and devices: None. Lungs and pleura: Perihilar opacities. Mediastinum: Cardiomegaly. Questionable widening of the mediastinum. Bones and chest wall: No suspicious bony lesions. Overlying soft tissues appear unremarkable. IMPRESSION: Questionable widening of the mediastinum. Recommend chest CT to exclude acute aortic syndrome. Dictated by: Shine Hair M.D. on 01/16/2025 at 8:16 Approved by: Shine Hair M.D. on 01/16/2025 at 8:20
--- NOTE | 2025-01-16 07:37 | ED.ARRPALP ---
HPI - Arrhythmia/Palpitations General Chief Complaint: Arrhythmia/Palpitations Stated Complaint: SOB, SVT Time Seen by Provider: 01/16/25 08:03 History of Present Illness HPI narrative: 74-year-old male with a past medical history of hypertension, hyperlipidemia, comes into the ED from home via EMS for evaluation SVT as well as generalized weakness. According to the patient he was feeling extremely weak he last night fell onto the floor and was unable to get up. He states that he called medics got up and refused to come into the emergency department. He called several hours later due to the fact that he was having shortness of breath. Medics state that he was in SVT no history of, on any blood thinners. Did give 6 mg adenosine initially responded but converted back to SVT. Patient arrives in unstable SVT. Related Data Home Medications ?Medication ?Instructions ?Recorded ?Confirmed chlorthalidone 25 mg tablet 25 mg PO [facility] ##0 04/11/17 08/17/23 finasteride 5 mg tablet 5 mg PO DAILY ##0 04/11/17 08/17/23 allopurinol 100 mg tablet 400 mg PO DAILY 01/05/22 08/17/23 amlodipine 10 mg tablet 2.5 mg PO DAILY 01/05/22 08/17/23 potassium chloride 20 mEq 20 meq PO DAILY 01/05/22 08/17/23 tablet,extended release rosuvastatin 5 mg tablet 2.5 mg PO DAILY 01/05/22 08/17/23 docusate sodium 100 mg capsule 250 mg PO BID PRN Constipation 08/17/22 08/17/23 from narcotic pain meds losartan 50 mg tablet 50 mg PO ONCE PM 08/17/22 08/17/23 gabapentin 300 mg capsule 600 mg PO BID 02/28/23 08/17/23 methocarbamol 500 mg tablet 1,000 mg PO BID 02/28/23 08/17/23 solifenacin 10 mg tablet 10 mg PO DAILY 02/28/23 08/17/23 tamsulosin 0.4 mg capsule 0.4 mg PO DAILY 02/28/23 08/17/23 coenzyme Q10 100 mg capsule 200 mg PO DAILY 08/17/23 08/17/23 (CoQ-10) znhezjbxoc-idaqi-jbzxib-hyaluronic 2 tab PO DAILY 08/17/23 08/17/23 acid 500 mg-100 mg-500 mg-40 mg tab Previous Rx's ?Medication ?Instructions ?Recorded aspirin 81 mg tablet,delayed 81 mg PO BID #60 tabs 03/18/23 release oxycodone 5 mg tablet 5 mg PO Q4H PRN pain #40 tabs 03/18/23 ketorolac 10 mg tablet 10 mg PO Q6H PRN pain #14 tabs 03/19/23 hydrocodone 5 mg-acetaminophen 325 1 tab PO Q6H PRN pain #10 tabs 10/14/23 mg tablet hydrocodone 5 mg-acetaminophen 325 1 tab PO QID PRN pain #10 tabs 02/02/24 mg tablet Allergies Allergy/AdvReac Type Severity Reaction Status Date / Time Iodinated Contrast Media AdvReac Mild Hives Verified 01/16/25 07:45 semaglutide (From [facility]) AdvReac Unknown Verified 01/16/25 07:45 Review of Systems Review of Systems Narrative: General: Positive generalized weakness Denies fever, chills, weight loss HEENT: Denies headache, eye drainage, eye irritation, head trauma, sore throat, voice change Cardiovascular: Denies any chest pain, palpitations, tachycardia Respiratory: Positive shortness of breath, denies cough, wheeze, stridor GI/: Denies any abdominal pain, nausea, vomiting, diarrhea, bright red blood per rectum, melanotic stools, urinary frequency, urinary retention, dysuria, hematuria MSK: Denies any joint pain, muscle pains, swelling Skin: Denies any rashes, lesions, discoloration Neuro: Denies any headache, lightheadedness, dizziness, fainting, weakness Psych: Denies SI/HI Patient History Medical History History of colon cancer BACILIO treated with BiPAP Surgical History 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) H/O colectomy History of spinal fusion S/P epidural steroid injection Hx of laminectomy (2017) Social History household members: none alcohol intake: current tobacco type: cigarettes alcohol intake frequency: holidays/special occasions only Exam Narrative Exam Narrative: General: Cooperative, well-developed, not in acute distress HEENT: Normocephalic, atraumatic, PERRLA, normal sclera, eyelids normal Neck: Active full range of motion, atraumatic Chest: Normal to inspection, negative crepitus, no overlying erythema ecchymosis Respiratory: Normal respiratory effort, not in acute respiratory distress, clear to auscultation bilaterally negative cough, wheeze, tachypnea, rhonchi, rales Cardiology: Tachycardic, Regular rate rhythm negative gallop, murmur, rubs GI/: No tenderness to palpation, soft, non rigid, normal to inspection, exam deferred MSK: Full active range of motion in all 4 extremities, left lower extremity red and warmth to the touch otherwise no gross deformity Skin: No rashes or lesions noted Neuro: Alert awake oriented x3, moves all 4 extremities spontaneously, cranial nerves intact, able to answer all questions appropriately follows commands appropriately Psych: Cooperative, negative suicidal or homicidal ideations Initial Vital Signs Initial Vital Signs: Vital Signs Temperature 98.4 F 01/16/25 07:45 Pulse Rate 197 H 01/16/25 07:45 Respiratory Rate 28 H 01/16/25 07:45 Blood Pressure 77/53 L 01/16/25 07:45 Pulse Oximetry 96 01/16/25 07:45 Oxygen Delivery Method Room Air 01/16/25 07:45 Course Orders Ordered: ED Orders 01/16/25 07:37 CXR [XR chest 1V] Stat 01/16/25 07:38 EKG-12 Lead Stat 01/16/25 07:44 CBC Auto Diff [Complete Blood Count AUTO DIFF] Stat CMP [Comprehensive Metabolic Panel] Stat MAG [Magnesium] Stat TSH [Thyroid Stimulating Hormone] Stat 01/16/25 07:45 Lactate (Lactic Acid) Stat Troponin & CK Cardiac Panel Stat 01/16/25 07:56 EKG-12 Lead Routine 01/16/25 07:57 CT cervical spine wo con Stat CT head/brain wo con Stat Urinalysis and Microscopic Stat 01/16/25 08:03 Covid-19 + FLU A/B + RSV - PCR Stat 01/16/25 08:21 CT angio chest abdomen pelvis Stat 01/16/25 08:45 Blood Culture Stat Sodium Chloride (Normal Saline 0.9%) 1,000 mls @ 1,000 mls/hr IV BOLUS ONE Stop: 01/16/25 11:00 Discontinued Medications Diphenhydramine HCl (Diphenhydramine 50 Mg/Ml Vial) 25 mg IV NOW ONE Stop: 01/16/25 08:21 Last Admin: 01/16/25 08:22 Dose: 25 mg Documented By: RB Fentanyl (Fentanyl 100 Mcg/2 Ml Inj) 75 mcg IV NOW ONE Stop: 01/16/25 07:43 Last Admin: 01/16/25 07:57 Dose: 75 mcg Documented By: YARELY Sodium Chloride (Normal Saline 0.9%) 1,000 mls @ 1,000 mls/hr IV BOLUS ONE Stop: 01/16/25 08:36 Last Infusion: 01/16/25 09:11 Dose: Infused Documented By: Admin: 01/16/25 07:45 Dose: 1,000 mls/hr Documented By: RB Magnesium Sulfate (Magnesium Sulfate) 2 gm in 50 mls @ 150 mls/hr IV NOW ONE Stop: 01/16/25 08:18 Last Infusion: 01/16/25 09:11 Dose: Infused Documented By: RB Co-signed By: KB Admin: 01/16/25 08:45 Dose: 150 mls/hr Documented By: RB Co-signed By: BT Cefazolin Sodium 1 gm/ Sodium (Chloride) 100 mls @ 200 mls/hr IV NOW ONE Stop: 01/16/25 09:38 Last Infusion: 01/16/25 10:16 Dose: Infused Documented By: Admin: 01/16/25 09:16 Dose: 200 mls/hr Documented By: RB Methylprednisolone (Methylprednisolone 125 Mg/2 Ml Vial) 125 mg IV NOW ONE Stop: 01/16/25 08:21 Last Admin: 01/16/25 08:22 Dose: 125 mg Documented By: RB Vital Signs Vital signs: Vital Signs - 8 hr 01/16/25 07:45 01/16/25 07:45 01/16/25 07:50 Temperature 98.4 F Pulse Rate 197 H 194 H 124 H Respiratory Rate 28 H 26 H 22 Blood Pressure 77/53 L 77/53 L 78/44 L Pulse Oximetry 96 98 94 Oxygen Delivery Method Room Air 01/16/25 07:55 01/16/25 08:00 01/16/25 08:05 Temperature Pulse Rate 114 H 103 H 104 H Respiratory Rate 20 17 26 H Blood Pressure 107/59 L 122/66 120/68 Pulse Oximetry 96 93 95 Oxygen Delivery Method 01/16/25 08:10 01/16/25 08:15 01/16/25 08:50 Temperature Pulse Rate 102 H 101 H 100 H Respiratory Rate 20 16 22 Blood Pressure 126/72 120/69 128/78 Pulse Oximetry 97 96 97 Oxygen Delivery Method Room Air MDM - Arrhythmia/Palpitations Lab Data 01/16/25 07:44 01/16/25 07:44 Labs: Lab Results 01/16/25 01/16/25 01/16/25 Range/Units 07:44 07:45 08:03 WBC 22.4 H (4.5-11.0) X10^3/uL RBC 3.67 L (4.5-5.9) X10^6/uL Hgb 13.2 L (13.5-17.5) g/dL Hct 37.5 L (41-53) % MCV 102.2 H (80-100) fL MCH 36.0 H (26-34) PG MCHC 35.2 (30-36) % RDW 16.3 H (11.6-14.8) % Plt Count 164 (150-400) X10^3/uL Neut % (Auto) 88.6 H (50-75) % Lymph % (Auto) 6.0 L (25-40) % [place] % (Auto) 4.8 (3-14) % Eos % (Auto) 0.0 L (2-4) % Baso % (Auto) 0.6 (0-2) % Neut # (Auto) 29606 H (2413-8297) /uL Lymph # (Auto) 1300 (6199-3648) /uL [place] # (Auto) 1100 H (0-900) /uL Eos # (Auto) 0 (0-450) /uL Baso # (Auto) 100 (0-100) /uL Sodium 135 L (137-145) mmol/L Potassium 3.6 (3.4-5.1) mmol/L Chloride 100 (98-107) mmol/L Carbon Dioxide 22 (22-32) mmol/L BUN 33 H (9-20) mg/dL Creatinine 1.40 H (0.66-1.25) mg/dL Estimated GFR 53 L (>60) mL/min BUN/Creatinine Ratio 23.6 H (6-22) Glucose 138 H (70-99) mg/dL Lactate 3.3 H (0.7-2.1) mmol/L Calcium 8.9 (8.4-10.2) mg/dL Magnesium 1.6 (1.6-2.3) mg/dL Total Bilirubin 1.7 H (0.2-1.3) mg/dL AST 250 H (17-59) IU/L ALT 80 H (<50) IU/L Alkaline Phosphatase 68 (38-126) U/L Total Creatine Kinase Cancelled 9385 H Troponin I 0.654 H* (0.01-0.034) ng/mL Total Protein 7.5 (6.3-8.2) g/dL Albumin 4.3 (3.5-5.0) g/dL Globulin 3.2 (1.7-4.1) g/dL Albumin/Globulin Ratio 1.3 (1.0-2.8) TSH 2.52 (0.47-4.68) uIU/mL SARS-CoV-2 (PCR) Negative (Negative) Influenza A (RT-PCR) Flu a negative (NEGATIVE) Influenza B (RT-PCR) Flu b negative (NEGATIVE) RSV (PCR) Negative (Negative) ECG Data Interpretation: EKG interpreted ED physician SVT at 195 beats per minute, QTC 446, normal axis nonspecific ST changes no STEMI Repeat EKG sinus tachycardia 109 beats per minute QTC 479 occasional PVCs noted, left axis deviation no STEMI MDM Narrative Medical decision making narrative: 74-year-old male with a past medical history of hypertension, hyperlipidemia, comes into the ED from home for evaluation of multiple complaints. Patient states that last night he felt diffusely weak and was unknown vehicle to get up off the floor, was evaluated by EMS states that he did not want to come into the emergency department. He called EMS again stating that he was having shortness of breath, it medics state that he was found in new onset SVT did give 6 mg adenosine, did convert but stated that he went back into SVT, therefore was brought into the emergency department. Patient is stating that he feels weak, shortness of breath, states that he is unsure how long he was on the floor, but stated that he was on the floor due to diffuse weakness. Not on any blood thinners. On exam patient did have some warm left lower extremity redness. We will treat prophylactically for cellulitis Patient was evaluated immediately upon arrival here in the emergency department, patient was noted to be in SVT, pressures showing map of 50s, patient unstable SVT, emergent consent we will cardiovert. CK is 9385, Trop 0.654 but this was obtained s/p cardioversion and while patient had been in SVT. 0745: Patient was cardioverted with 75 of fentanyl, 150 joules, patient now sinus tach at 109 beats per minute 0815: Received call from radiologist Dr. Shine Hair, he states that the chest x-ray appears to be slightly widened unsure if it is due to technique, is recommending CT angio chest abdomen and pelvis, given patient with allergy to contrast discussion with radiologist agrees patient should be given Solu-Medrol and Benadryl prior to IV contrast administration we will continue with imaging at this time 0930: Patient re-evaluated, he states he is too weak to stand and therefore require admission to the hospital for fluids antibiotics as well as PT OT as well as cardiac monitoring given patient in intermittent SVT Discharge Plan Departure Patient Disposition: Admitted As Inpatient Clinical Impression: SVT (supraventricular tachycardia), Cellulitis of leg, Rhabdomyolysis
--- NOTE | 2025-01-16 07:38 | EKG_ITS ---
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
[2025-01-16] MEDS: SODIUM CHLORIDE 0.9% 1,000 ML 1000 ML IV ×2 (07:45→10:31)
[2025-01-16 07:50] LABS: Add Manual Diff / Slide Review NO; Hematocrit 37.5 % (41-53); Hemoglobin 13.2 g/dL (13.5-17.5); Lymphocytes Absolute Auto 1300 /uL (1100-4500); Mean Corpuscular HGB Conc 35.2 % (30-36); Mean Corpuscular Hemoglobin 36.0 PG (26-34); Mean Corpuscular Volume 102.2 fL (80-100); Platelet Count 164 X10^3/uL (150-400)
--- NOTE | 2025-01-16 07:56 | EKG_ITS ---
[address] [address] [address] [address] Test Date: 2025-01-16 Pat Name: Jaime Aleman Department: Room: Gender: Male Rejected Items Clerk: CONSTANTINE : 1950 Requested By: Order Number: [id number] Reading MD: Ortgea Denny Measurements Intervals [place] Rate: 109 P: 0 NE: 184 QRS: -51 QRSD: 96 T: 70 QT: 356 QTc: 479 Interpretive Statements Sinus tachycardia with premature supraventricular complexes Left axis deviation Electronically Signed On 01-17-2025 7:24:58 PDT by Ortega Denny
[2025-01-16] MEDS: fentaNYL 100 MCG/2 ML INJ 75 MCG IV (07:57)
--- NOTE | 2025-01-16 07:57 | DI.CT.S_ITS ---
PROCEDURE: CT HEAD/BRAIN WO CON INDICATIONS: Trauma TECHNIQUE: Noncontrast 4.5 mm thick angled axial sections acquired from the foramen magnum to the vertex, with coronal and sagittal reformats. For radiation dose reduction, the following was used: automated exposure control, adjustment of mA and/or kV according to patient size. COMPARISON: [facility], CT, HEAD WITHOUT CONTRAST, 04/10/2017, 9:57. FINDINGS: Image quality: Diagnostic. CSF spaces: Basal cisterns are patent. No extra-axial fluid collections. The ventricles are symmetric in size and shape. Brain: No intracranial bleeds or mass effect. There is cerebral volume loss, with resultant ventricular and sulcal prominence. There are periventricular and deep white matter chronic small vessel ischemic changes. There is intracranial internal carotid artery atherosclerosis. Skull and face: Calvarium and visualized facial bones appear intact, without suspicious lesions. Sinuses: Visualized sinuses and mastoids are clear. IMPRESSION: No acute intracranial pathology. Dictated by: Carmelo Andres M.D. on 01/16/2025 at 8:56 Approved by: Carmelo Andres M.D. on 01/16/2025 at 8:59
--- NOTE | 2025-01-16 07:57 | DI.CT.S_ITS ---
PROCEDURE: CT CERVICAL SPINE WO CON INDICATIONS: trauma TECHNIQUE: Noncontrast 3 mm thick sections acquired from the skull base to the T4 level. Sagittal and coronal reformats were then constructed. For radiation dose reduction, the following was used: automated exposure control, adjustment of mA and/or kV according to patient size. COMPARISON: None. FINDINGS: Image quality: Excellent. Bones: No fractures or dislocations. Multilevel degenerative changes of the cervical spine. Visualized superior ribs are intact. Soft tissues: Prevertebral soft tissues are normal in thickness. No paravertebral hematomas. No apical pneumothoraces. IMPRESSION: No displaced fracture or traumatic subluxation. Dictated by: Carmelo Andres M.D. on 01/16/2025 at 8:59 Approved by: Carmelo Andres M.D. on 01/16/2025 at 9:04
[2025-01-16 08:19] LABS: Alanine Aminotransferase 80 IU/L (<50); Albumin 4.3 g/dL (3.5-5.0); Albumin Globulin Ratio 1.3 (1.0-2.8); Alkaline Phosphatase 68 U/L (38-126); Blood Urea Nitrogen 33 mg/dL (9-20); Calcium 8.9 mg/dL (8.4-10.2); Carbon Dioxide 22 mmol/L (22-32); Chloride 100 mmol/L (98-107); Estimated Glomerular Filt Rate 53 mL/min (>60); Globulin 3.2 g/dL (1.7-4.1); Glucose 138 mg/dL (70-99); HEMOLYSIS < 15 (0-50); Magnesium 1.6 mg/dL (1.6-2.3); Potassium 3.6 mmol/L (3.4-5.1); Sodium 135 mmol/L (137-145); Total Protein 7.5 g/dL (6.3-8.2)
--- NOTE | 2025-01-16 08:21 | DI.CT.S_ITS ---
PROCEDURE: CT ANGIO CHEST ABDOMEN PELVIS INDICATIONS: Widened mediastinum TECHNIQUE: Precontrast 5 mm thick sections acquired from the lung apices to the iliac crests. After the administration of intravenous contrast, 2.5 mm thick sections again acquired from the lung apices to the iliac crests. Maximum intensity projection (MIP) oblique sagittal and coronal reformats were then acquired. For radiation dose reduction, the following was used: automated exposure control. COMPARISON: [facility], CT, CT ANGIO ABD/PEL GI BLEED, 05/04/2024, 16:35. [facility], CT, ANGIO CHEST ABDOMEN PELVIS, 04/10/2017, 10:44. FINDINGS: Image quality: Diagnostic. AORTA: No aortic aneurysm. No acute aortic syndrome. Atherosclerotic vascular calcifications. 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 Otherwise, no significant stenosis. CHEST: Lower Neck: No enlarged lymph nodes. Thyroid: No thyroid nodules which require sonographic evaluation. Axillae: No enlarged lymph nodes. Chest Wall: Unremarkable. Lungs and Pleura: No pneumothorax or pleural effusions. No consolidation or suspicious nodules. Heart: Heart size is normal. No pericardial effusion. Thoracic Vessels: Dilated main pulmonary artery measuring 3.8 cm, suggestive of pulmonary hypertension. Mediastinum and Leighann: No enlarged lymph nodes. Esophagus: No wall thickening. No hiatal hernia. ABDOMEN: Liver: No solid mass. Gallbladder: No radiopaque gallstones or wall thickening. Biliary ducts: No biliary dilation. Pancreas: No ductal dilation. Spleen: Size is within normal limits. Adrenal Glands: No adrenal nodules. Kidneys and Ureters: No hydronephrosis. No solid mass. No complex renal cystic lesion which requires follow up. Stomach and Bowel: Normal colonic caliber, without significant wall thickening. Colorectal anastomosis. Peritoneum: No abnormal intraperitoneal fluid. No free air. Small area of fat density with associated stranding and calcification measuring 2.1 cm is stable compared to the prior exam, likely a small area of fat necrosis. Additional area of fat density associated stranding and calcification adjacent to the ascending colon measuring 5.1 cm is stable and may represent fat necrosis this is similar dating back to 2017. Ventral Wall: No hernia. Abdominal Nodes: No retroperitoneal or mesenteric adenopathy by size criteria. Vessels: Inferior vena cava is normal in size. PELVIS: Pelvic Organs: Unremarkable. Bladder: Unremarkable. Pelvic Nodes: No enlarged lymph nodes. Miscellaneous: Mild stranding within the left external iliac region and groin with prominent lymph nodes measuring up to 1.2 cm in short axis. Bones: Degenerative changes of the spine. L3-L4 posterior spinal fixation. IMPRESSION: 1. No evidence of acute aortic syndrome. The aorta is patent and normal in caliber throughout. Atherosclerotic vascular calcifications are present. 2. 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 Otherwise, no significant stenosis is seen. 3. Dilated main pulmonary artery, suggestive of pulmonary hypertension. 4. Areas of fat density with associated calcification in the left pelvis and adjacent to the ascending colon as described above, may represent areas of fat necrosis. These are stable compared to prior exam. Dictated by: Carmelo Andres M.D. on 01/16/2025 at 9:04 Approved by: Carmelo Andres M.D. on 01/16/2025 at 9:22
[2025-01-16] MEDS: diphenhydrAMINE 50 MG/ML VIAL 25 MG IV (08:22)
[2025-01-16] MEDS: MAGNESIUM SULFATE 2 GM/50 ML PIGGYBACK IV (08:45)
[2025-01-16 08:50] LABS: Thyroid Stimulating Hormone 2.52 uIU/mL (0.47-4.68)
[2025-01-16 08:55] LABS: COVID-19 CEPHEID 4-PLEX PCR Negative (Negative); Influenza A - CEPHEID Flu A NEGATIVE (NEGATIVE); Influenza B - CEPHEID Flu B NEGATIVE (NEGATIVE)
[2025-01-16] MEDS: CEFAZOLIN VIAL 1 GM in SODIUM CHLORIDE 0.9% 100 ML IV (09:16)
[2025-01-16 09:17] LABS: Creatine Kinase 9385 U/L (55-170)
--- NOTE | 2025-01-16 09:19 | PC.NURSE ---
This RN noted left sided redness from knee down to front of ankle and back to the bottom of heel is warm to touch and dark pink. This RN immediately informed provider who came and assessed patient. IV antibiotics ordered by provider and this RN adminstered.
[2025-01-16 09:38] LABS: Troponin I 0.654 ng/mL (0.01-0.034)
[2025-01-16 09:52] LABS: Lactate (Lactic Acid) 3.3 mmol/L (0.7-2.1)
[2025-01-16 10:37] LABS: Reflexed Lactate in 2 Hours Y
[2025-01-16 11:04] LABS: Lactate 2HR (Lactic Acid Rflx) 1.6 mmol/L (0.7-2.1)
--- NOTE | 2025-01-16 11:17 | ED.ARRPALP ---
HPI - Arrhythmia/Palpitations General Chief Complaint: Arrhythmia/Palpitations Stated Complaint: SOB, SVT Time Seen by Provider: 01/16/25 08:03 Source: patient and EMS Mode of arrival: EMS History of Present Illness HPI narrative: Patient is a 74-year-old male with a past medical history of hypertension, hyperlipidemia brought into the ED from home for multiple complaints. According to the patient he had severe weakness and had a fall last night, states he was on the floor for ?a long time states that he called EMS at that time, states that they were able to get him up but he refused to go to the ED at that time. He states that several hours later he was still weak but started developing shortness of breath EMS was called, they state that he was found to be in SVT, no history of this, they state that they did give him 6 mg of adenosine, initially responded but converted back. Therefore was brought into the ED. At time of evaluation patient stating feeling extremely weak short of breath patient unstable SVT, emergent cardioversion was performed at bedside. Patient still complaining of generalized weakness and inability to stand walk after cardioversion. Patient not complaining of any specific pain not on any blood thinners Related Data Home Medications ?Medication ?Instructions ?Recorded ?Confirmed chlorthalidone 25 mg tablet 25 mg PO [facility] ##0 04/11/17 08/17/23 finasteride 5 mg tablet 5 mg PO DAILY ##0 04/11/17 08/17/23 allopurinol 100 mg tablet 400 mg PO DAILY 01/05/22 08/17/23 amlodipine 10 mg tablet 2.5 mg PO DAILY 01/05/22 08/17/23 potassium chloride 20 mEq 20 meq PO DAILY 01/05/22 08/17/23 tablet,extended release rosuvastatin 5 mg tablet 2.5 mg PO DAILY 01/05/22 08/17/23 docusate sodium 100 mg capsule 250 mg PO BID PRN Constipation 08/17/22 08/17/23 from narcotic pain meds losartan 50 mg tablet 50 mg PO ONCE PM 08/17/22 08/17/23 gabapentin 300 mg capsule 600 mg PO BID 02/28/23 08/17/23 methocarbamol 500 mg tablet 1,000 mg PO BID 02/28/23 08/17/23 solifenacin 10 mg tablet 10 mg PO DAILY 02/28/23 08/17/23 tamsulosin 0.4 mg capsule 0.4 mg PO DAILY 02/28/23 08/17/23 coenzyme Q10 100 mg capsule 200 mg PO DAILY 08/17/23 08/17/23 (CoQ-10) ualwvgqdgx-ykbef-szqtug-hyaluronic 2 tab PO DAILY 08/17/23 08/17/23 acid 500 mg-100 mg-500 mg-40 mg tab Previous Rx's ?Medication ?Instructions ?Recorded aspirin 81 mg tablet,delayed 81 mg PO BID #60 tabs 03/18/23 release oxycodone 5 mg tablet 5 mg PO Q4H PRN pain #40 tabs 03/18/23 ketorolac 10 mg tablet 10 mg PO Q6H PRN pain #14 tabs 03/19/23 hydrocodone 5 mg-acetaminophen 325 1 tab PO Q6H PRN pain #10 tabs 10/14/23 mg tablet hydrocodone 5 mg-acetaminophen 325 1 tab PO QID PRN pain #10 tabs 02/02/24 mg tablet Allergies Allergy/AdvReac Type Severity Reaction Status Date / Time Iodinated Contrast Media AdvReac Mild Hives Verified 01/16/25 07:45 semaglutide (From [facility]) AdvReac Unknown Verified 01/16/25 07:45 Review of Systems Review of Systems Narrative: General: Positive generalized weakness Denies fever, chills, weight loss HEENT: Denies headache, eye drainage, eye irritation, head trauma, sore throat, voice change Cardiovascular: Denies any chest pain, palpitations, tachycardia Respiratory: Positive shortness of breath Denies any cough, wheeze, stridor GI/: Denies any abdominal pain, nausea, vomiting, diarrhea, bright red blood per rectum, melanotic stools, urinary frequency, urinary retention, dysuria, hematuria MSK: Denies any joint pain, muscle pains, swelling Skin: Denies any rashes, lesions, discoloration Neuro: Denies any headache, lightheadedness, dizziness, fainting, weakness Psych: Denies SI/HI Patient History Medical History History of colon cancer BACILIO treated with BiPAP Surgical History 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) H/O colectomy History of spinal fusion S/P epidural steroid injection Hx of laminectomy (2018) Social History household members: none alcohol intake: current tobacco type: cigarettes alcohol intake frequency: holidays/special occasions only Exam Narrative Exam Narrative: General: Cooperative, well-developed, not in acute distress HEENT: Normocephalic, atraumatic, PERRLA, normal sclera, eyelids normal Neck: Active full range of motion, atraumatic Chest: Positive tachycardia Normal to inspection, negative crepitus, no overlying erythema ecchymosis Respiratory: Patient tachypneic upon initial evaluation not in acute respiratory distress, clear to auscultation bilaterally negative cough, wheeze, tachypnea, rhonchi, rales Cardiology: Regular rate rhythm negative gallop, murmur, rubs GI/: No tenderness to palpation, soft, non rigid, normal to inspection, exam deferred MSK: Full active range of motion in all 4 extremities, atraumatic, no tenderness to palpation of any bony prominences Skin: Erythema noted to the left lower extremity Neuro: NIH of 0 no focal deficits Alert awake oriented x3, moves all 4 extremities spontaneously, cranial nerves intact, able to answer all questions appropriately follows commands appropriately Psych: Cooperative, negative suicidal or homicidal ideations Initial Vital Signs Initial Vital Signs: Vital Signs Pulse Rate 90 01/16/25 07:40 Blood Pressure 80/52 L 01/16/25 07:40 Pulse Oximetry 93 01/16/25 07:40 Course Orders Ordered: ED Orders 01/16/25 07:37 CXR [XR chest 1V] Stat 01/16/25 07:38 EKG-12 Lead Stat 01/16/25 07:44 CBC Auto Diff [Complete Blood Count AUTO DIFF] Stat CMP [Comprehensive Metabolic Panel] Stat MAG [Magnesium] Stat TSH [Thyroid Stimulating Hormone] Stat 01/16/25 07:45 Lactate (Lactic Acid) Stat Troponin & CK Cardiac Panel Stat 01/16/25 07:56 EKG-12 Lead Routine 01/16/25 07:57 CT cervical spine wo con Stat CT head/brain wo con Stat 01/16/25 08:03 Covid-19 + FLU A/B + RSV - PCR Stat 01/16/25 08:21 CT angio chest abdomen pelvis Stat 01/16/25 08:45 Blood Culture Stat 01/16/25 11:28 Urinalysis and Microscopic Stat 01/16/25 11:47 Trop I [Troponin I] Stat Discontinued Medications Diphenhydramine HCl (Diphenhydramine 50 Mg/Ml Vial) 25 mg IV NOW ONE Stop: 01/16/25 08:21 Last Admin: 01/16/25 08:22 Dose: 25 mg Documented By: RB Fentanyl (Fentanyl 100 Mcg/2 Ml Inj) 75 mcg IV NOW ONE Stop: 01/16/25 07:43 Last Admin: 01/16/25 07:57 Dose: 75 mcg Documented By: CTS Sodium Chloride (Normal Saline 0.9%) 1,000 mls @ 1,000 mls/hr IV BOLUS ONE Stop: 01/16/25 08:36 Last Infusion: 01/16/25 09:11 Dose: Infused Documented By: Admin: 01/16/25 07:45 Dose: 1,000 mls/hr Documented By: RB Magnesium Sulfate (Magnesium Sulfate) 2 gm in 50 mls @ 150 mls/hr IV NOW ONE Stop: 01/16/25 08:18 Last Infusion: 01/16/25 09:11 Dose: Infused Documented By: RB Co-signed By: KB Admin: 01/16/25 08:45 Dose: 150 mls/hr Documented By: RB Co-signed By: BT Cefazolin Sodium 1 gm/ Sodium (Chloride) 100 mls @ 200 mls/hr IV NOW ONE Stop: 01/16/25 09:38 Last Infusion: 01/16/25 10:16 Dose: Infused Documented By: Admin: 01/16/25 09:16 Dose: 200 mls/hr Documented By: RB Sodium Chloride (Normal Saline 0.9%) 1,000 mls @ 1,000 mls/hr IV BOLUS ONE Stop: 01/16/25 11:00 Last Infusion: 01/16/25 11:32 Dose: Infused Documented By: Admin: 01/16/25 10:31 Dose: 1,000 mls/hr Documented By: RB Methylprednisolone (Methylprednisolone 125 Mg/2 Ml Vial) 125 mg IV NOW ONE Stop: 01/16/25 08:21 Last Admin: 01/16/25 08:22 Dose: 125 mg Documented By: RB Vital Signs Vital signs: Vital Signs - 8 hr 01/16/25 07:40 01/16/25 07:45 01/16/25 07:45 Temperature 98.4 F Pulse Rate 90 197 H 194 H Respiratory Rate 28 H 26 H Blood Pressure 80/52 L 77/53 L 77/53 L Pulse Oximetry 93 96 98 Oxygen Delivery Method Room Air 01/16/25 07:45 01/16/25 07:50 01/16/25 07:50 Temperature Pulse Rate 194 H 124 H 163 H Respiratory Rate 14 22 26 H Blood Pressure 77/53 L 78/44 L 78/44 L Pulse Oximetry 96 94 95 Oxygen Delivery Method Room Air 01/16/25 07:53 01/16/25 07:55 01/16/25 07:55 Temperature Pulse Rate 114 H 114 H 109 H Respiratory Rate 29 H 20 27 H Blood Pressure 107/59 L 107/59 L 119/66 Pulse Oximetry 94 96 91 Oxygen Delivery Method Room Air 01/16/25 08:00 01/16/25 08:00 01/16/25 08:05 Temperature Pulse Rate 103 H 105 H 104 H Respiratory Rate 17 30 H 26 H Blood Pressure 122/66 122/66 120/68 Pulse Oximetry 93 94 95 Oxygen Delivery Method Room Air 01/16/25 08:05 01/16/25 08:10 01/16/25 08:10 Temperature Pulse Rate 104 H 102 H 104 H Respiratory Rate 20 19 Blood Pressure 120/68 126/72 126/72 Pulse Oximetry 94 97 96 Oxygen Delivery Method Room Air 01/16/25 08:15 01/16/25 08:15 01/16/25 08:36 Temperature Pulse Rate 101 H 101 H 101 H Respiratory Rate 16 22 Blood Pressure 120/69 120/69 124/60 Pulse Oximetry 96 95 95 Oxygen Delivery Method Room Air 01/16/25 08:40 01/16/25 08:48 01/16/25 08:50 Temperature Pulse Rate 101 H 101 H 100 H Respiratory Rate 28 H 22 Blood Pressure 117/66 128/78 128/78 Pulse Oximetry 96 99 97 Oxygen Delivery Method Room Air Room Air 01/16/25 08:56 01/16/25 09:00 01/16/25 09:05 Temperature Pulse Rate 101 H 100 H 101 H Respiratory Rate 26 H Blood Pressure 122/71 112/59 L 104/57 L Pulse Oximetry 93 95 97 Oxygen Delivery Method Room Air Room Air 01/16/25 09:10 01/16/25 09:15 01/16/25 09:20 Temperature Pulse Rate 97 H 98 H 99 H Respiratory Rate 22 Blood Pressure 113/63 111/56 L 116/56 L Pulse Oximetry 95 94 94 Oxygen Delivery Method Room Air Room Air Room Air 01/16/25 09:30 01/16/25 10:10 01/16/25 10:30 Temperature Pulse Rate 95 H 97 H 97 H Respiratory Rate 20 26 H Blood Pressure 131/68 Pulse Oximetry 95 97 95 Oxygen Delivery Method Room Air 01/16/25 11:00 Temperature Pulse Rate 95 H Respiratory Rate Blood Pressure Pulse Oximetry 95 Oxygen Delivery Method MDM - Arrhythmia/Palpitations Differential Diagnosis Differential diagnosis: Likely palpitations, sinus tachycardia, artial fibrillation, supraventricular tachycardia, ventricular tachycardia and other (Cellulitis, intracranial hemorrhage,) Lab Data 01/16/25 07:44 01/16/25 07:44 Labs: Lab Results 01/16/25 01/16/25 01/16/25 Range/Units 07:44 07:45 08:03 WBC 22.4 H (4.5-11.0) X10^3/uL RBC 3.67 L (4.5-5.9) X10^6/uL Hgb 13.2 L (13.5-17.5) g/dL Hct 37.5 L (41-53) % MCV 102.2 H (80-100) fL MCH 36.0 H (26-34) PG MCHC 35.2 (30-36) % RDW 16.3 H (11.6-14.8) % Plt Count 164 (150-400) X10^3/uL Neut % (Auto) 88.6 H (50-75) % Lymph % (Auto) 6.0 L (25-40) % [place] % (Auto) 4.8 (3-14) % Eos % (Auto) 0.0 L (2-4) % Baso % (Auto) 0.6 (0-2) % Neut # (Auto) 54730 H (5885-9012) /uL Lymph # (Auto) 1300 (2159-4408) /uL [place] # (Auto) 1100 H (0-900) /uL Eos # (Auto) 0 (0-450) /uL Baso # (Auto) 100 (0-100) /uL Sodium 135 L (137-145) mmol/L Potassium 3.6 (3.4-5.1) mmol/L Chloride 100 (98-107) mmol/L Carbon Dioxide 22 (22-32) mmol/L BUN 33 H (9-20) mg/dL Creatinine 1.40 H (0.66-1.25) mg/dL Estimated GFR 53 L (>60) mL/min BUN/Creatinine Ratio 23.6 H (6-22) Glucose 138 H (70-99) mg/dL Lactate 3.3 H (0.7-2.1) mmol/L Calcium 8.9 (8.4-10.2) mg/dL Magnesium 1.6 (1.6-2.3) mg/dL Total Bilirubin 1.7 H (0.2-1.3) mg/dL AST 250 H (17-59) IU/L ALT 80 H (<50) IU/L Alkaline Phosphatase 68 (38-126) U/L Total Creatine Kinase Cancelled 9385 H Troponin I 0.654 H* (0.01-0.034) ng/mL Total Protein 7.5 (6.3-8.2) g/dL Albumin 4.3 (3.5-5.0) g/dL Globulin 3.2 (1.7-4.1) g/dL Albumin/Globulin Ratio 1.3 (1.0-2.8) TSH 2.52 (0.47-4.68) uIU/mL Urine Color Urine Appearance Urine pH (4.5-8.0) Ur Specific [place] (1.000-1.035) Urine Protein (Negative) Urine Glucose (UA) (Negative) g/dL Urine Ketones (NEGATIVE) Urine Occult Blood (Negative) Urine Nitrate (Negative) Urine Bilirubin (NEGATIVE) Urine Urobilinogen (0.2) E.U./dL Ur Leukocyte Esterase (NEGATIVE) Urine RBC (0-5/HPF) Urine WBC (0-5/HPF) Ur Squamous Epith Cells (0-5/HPF) Urine Bacteria (None) Ur Culture Indicated? Vol Urine Centrifuged SARS-CoV-2 (PCR) Negative (Negative) Influenza A (RT-PCR) Flu a negative (NEGATIVE) Influenza B (RT-PCR) Flu b negative (NEGATIVE) RSV (PCR) Negative (Negative) 01/16/25 01/16/25 01/16/25 Range/Units 10:35 11:28 11:47 WBC (4.5-11.0) X10^3/uL RBC (4.5-5.9) X10^6/uL Hgb (13.5-17.5) g/dL Hct (41-53) % MCV (80-100) fL MCH (26-34) PG MCHC (30-36) % RDW (11.6-14.8) % Plt Count (150-400) X10^3/uL Neut % (Auto) (50-75) % Lymph % (Auto) (25-40) % [place] % (Auto) (3-14) % Eos % (Auto) (2-4) % Baso % (Auto) (0-2) % Neut # (Auto) (6766-5369) /uL Lymph # (Auto) (8092-3669) /uL [place] # (Auto) (0-900) /uL Eos # (Auto) (0-450) /uL Baso # (Auto) (0-100) /uL Sodium (137-145) mmol/L Potassium (3.4-5.1) mmol/L Chloride (98-107) mmol/L Carbon Dioxide (22-32) mmol/L BUN (9-20) mg/dL Creatinine (0.66-1.25) mg/dL Estimated GFR (>60) mL/min BUN/Creatinine Ratio (6-22) Glucose (70-99) mg/dL Lactate 1.6 (0.7-2.1) mmol/L Calcium (8.4-10.2) mg/dL Magnesium (1.6-2.3) mg/dL Total Bilirubin (0.2-1.3) mg/dL AST (17-59) IU/L ALT (<50) IU/L Alkaline Phosphatase (38-126) U/L Total Creatine Kinase Troponin I 0.535 H* (0.01-0.034) ng/mL Total Protein (6.3-8.2) g/dL Albumin (3.5-5.0) g/dL Globulin (1.7-4.1) g/dL Albumin/Globulin Ratio (1.0-2.8) TSH (0.47-4.68) uIU/mL Urine Color Yellow Urine Appearance Clear Urine pH 5.5 (4.5-8.0) Ur Specific [place] 1.015 (1.000-1.035) Urine Protein Trace H (Negative) Urine Glucose (UA) Negative (Negative) g/dL Urine Ketones 1+ H (NEGATIVE) Urine Occult Blood 2+ H (Negative) Urine Nitrate Negative (Negative) Urine Bilirubin Negative (NEGATIVE) Urine Urobilinogen 0.2 (0.2) E.U./dL Ur Leukocyte Esterase Negative (NEGATIVE) Urine RBC 1-5/hpf (0-5/HPF) Urine WBC 0-1/hpf (0-5/HPF) Ur Squamous Epith Cells 0-1 /hpf (0-5/HPF) Urine Bacteria None seen (None) Ur Culture Indicated? Cult not indicated Vol Urine Centrifuged 10ml (spun) SARS-CoV-2 (PCR) (Negative) Influenza A (RT-PCR) (NEGATIVE) Influenza B (RT-PCR) (NEGATIVE) RSV (PCR) (Negative) Imaging Data Chest x-ray: Radiologist's Impresson: [address] [id number] XRay Report Signed Patient: Jaime Aleman MR#: [id number] : 1950 Acct:[id number] Age/Sex: 74 / M Date of Service: 01/16/25 Loc: ED Accession Number: [id number] Procedure: XR chest 1V Ordering Provider: Deng Polanco D.O. PROCEDURE: XR CHEST 1V INDICATIONS: palpitations TECHNIQUE: One view of the chest was acquired. COMPARISON: [facility], , CHEST FOR PICC PLACEMENT, 04/13/2017, 16:01. [facility], CHEST 1 VIEW, 04/10/2017, 9:43. FINDINGS: Surgical changes and devices: None. Lungs and pleura: Perihilar opacities. Mediastinum: Cardiomegaly. Questionable widening of the mediastinum. Bones and chest wall: No suspicious bony lesions. Overlying soft tissues appear unremarkable. IMPRESSION: Questionable widening of the mediastinum. Recommend chest CT to exclude acute aortic syndrome. CT scan - head: Radiologist's Impresson: [address] [id number] [address] Scan Report Signed Patient: Jaime Aleman MR#: [id number] : 1950 Acct:[id number] Age/Sex: 74 / M Date of Service: 01/16/25 Loc: ED Accession Number: [id number] Procedure: CT head/brain wo con Ordering Provider: Deng Polanco D.O. PROCEDURE: CT HEAD/BRAIN WO CON INDICATIONS: Trauma TECHNIQUE: Noncontrast 4.5 mm thick angled axial sections acquired from the foramen magnum to the vertex, with coronal and sagittal reformats. For radiation dose reduction, the following was used: automated exposure control, adjustment of mA and/or kV according to patient size. COMPARISON: [facility], CT, HEAD WITHOUT CONTRAST, 04/10/2017, 9:57. FINDINGS: Image quality: Diagnostic. CSF spaces: Basal cisterns are patent. No extra-axial fluid collections. The ventricles are symmetric in size and shape. Brain: No intracranial bleeds or mass effect. There is cerebral volume loss, with resultant ventricular and sulcal prominence. There are periventricular and deep white matter chronic small vessel ischemic changes. There is intracranial internal carotid artery atherosclerosis. Skull and face: Calvarium and visualized facial bones appear intact, without suspicious lesions. Sinuses: Visualized sinuses and mastoids are clear. IMPRESSION: No acute intracranial pathology. CT - cervical spine: Radiologist's Impresson: [place] [id number] CT Scan Report Signed Patient: Jaime Aleman MR#: [id number] : 1950 Acct:[id number] Age/Sex: 74 / M Date of Service: 01/16/25 Loc: ED Accession Number: [id number] Procedure: CT cervical spine wo con Ordering Provider: Deng Polanco D.O. PROCEDURE: CT CERVICAL SPINE WO CON INDICATIONS: trauma TECHNIQUE: Noncontrast 3 mm thick sections acquired from the skull base to the T4 level. Sagittal and coronal reformats were then constructed. For radiation dose reduction, the following was used: automated exposure control, adjustment of mA and/or kV according to patient size. COMPARISON: None. FINDINGS: Image quality: Excellent. Bones: No fractures or dislocations. Multilevel degenerative changes of the cervical spine. Visualized superior ribs are intact. Soft tissues: Prevertebral soft tissues are normal in thickness. No paravertebral hematomas. No apical pneumothoraces. IMPRESSION: No displaced fracture or traumatic subluxation. CT angio chest abdomen and pelvis: Radiologist's Impresson: [address] [id number] [address] Scan Report Signed Patient: Jaime Aleman MR#: [id number] : 1950 Acct:[id number] Age/Sex: 74 / M Date of Service: 01/16/25 Loc: ED Accession Number: [id number] Procedure: CT angio chest abdomen pelvis Ordering Provider: Deng Polanco D.O. PROCEDURE: CT ANGIO CHEST ABDOMEN PELVIS INDICATIONS: Widened mediastinum TECHNIQUE: Precontrast 5 mm thick sections acquired from the lung apices to the iliac crests. After the administration of intravenous contrast, 2.5 mm thick sections again acquired from the lung apices to the iliac crests. Maximum intensity projection (MIP) oblique sagittal and coronal reformats were then acquired. For radiation dose reduction, the following was used: automated exposure control. COMPARISON: [facility], CT, CT ANGIO ABD/PEL GI BLEED, 05/04/2024, 16:35. [facility], CT, ANGIO CHEST ABDOMEN PELVIS, 04/10/2017, 10:44. FINDINGS: Image quality: Diagnostic. AORTA: No aortic aneurysm. No acute aortic syndrome. Atherosclerotic vascular calcifications. 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 Otherwise, no significant stenosis. CHEST: Lower Neck: No enlarged lymph nodes. Thyroid: No thyroid nodules which require sonographic evaluation. Axillae: No enlarged lymph nodes. Chest Wall: Unremarkable. Lungs and Pleura: No pneumothorax or pleural effusions. No consolidation or suspicious nodules. Heart: Heart size is normal. No pericardial effusion. Thoracic Vessels: Dilated main pulmonary artery measuring 3.8 cm, suggestive of pulmonary hypertension. Mediastinum and Leighann: No enlarged lymph nodes. Esophagus: No wall thickening. No hiatal hernia. ABDOMEN: Liver: No solid mass. Gallbladder: No radiopaque gallstones or wall thickening. Biliary ducts: No biliary dilation. Pancreas: No ductal dilation. Spleen: Size is within normal limits. Adrenal Glands: No adrenal nodules. Kidneys and Ureters: No hydronephrosis. No solid mass. No complex renal cystic lesion which requires follow up. Stomach and Bowel: Normal colonic caliber, without significant wall thickening. Colorectal anastomosis. Peritoneum: No abnormal intraperitoneal fluid. No free air. Small area of fat density with associated stranding and calcification measuring 2.1 cm is stable compared to the prior exam, likely a small area of fat necrosis. Additional area of fat density associated stranding and calcification adjacent to the ascending colon measuring 5.1 cm is stable and may represent fat necrosis this is similar dating back to 2017. Ventral Wall: No hernia. Abdominal Nodes: No retroperitoneal or mesenteric adenopathy by size criteria. Vessels: Inferior vena cava is normal in size. PELVIS: Pelvic Organs: Unremarkable. Bladder: Unremarkable. Pelvic Nodes: No enlarged lymph nodes. Miscellaneous: Mild stranding within the left external iliac region and groin with prominent lymph nodes measuring up to 1.2 cm in short axis. Bones: Degenerative changes of the spine. L3-L4 posterior spinal fixation. IMPRESSION: 1. No evidence of acute aortic syndrome. The aorta is patent and normal in caliber throughout. Atherosclerotic vascular calcifications are present. 2. 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 Otherwise, no significant stenosis is seen. 3. Dilated main pulmonary artery, suggestive of pulmonary hypertension. 4. Areas of fat density with associated calcification in the left pelvis and adjacent to the ascending colon as described above, may represent areas of fat necrosis. These are stable compared to prior exam. [facility] Narrative Medical decision making narrative: 74-year-old male with a past medical history of hypertension, hyperlipidemia, comes into the ED from home for evaluation of multiple complaints. Patient states that last night he felt diffusely weak and was unknown vehicle to get up off the floor, was evaluated by EMS states that he did not want to come into the emergency department. He called EMS again stating that he was having shortness of breath, it medics state that he was found in new onset SVT did give 6 mg adenosine, did convert but stated that he went back into SVT, therefore was brought into the emergency department. Patient is stating that he feels weak, shortness of breath, states that he is unsure how long he was on the floor, but stated that he was on the floor due to diffuse weakness. Not on any blood thinners. On exam patient did have some warm left lower extremity redness. We will treat prophylactically for cellulitis Patient was evaluated immediately upon arrival here in the emergency department, patient was noted to be in SVT, pressures showing map of 50s, patient unstable SVT, emergent consent we will cardiovert. CK is 9385, Trop 0.654 but this was obtained s/p cardioversion and while patient had been in SVT. 0745: Patient was cardioverted with 75 of fentanyl, 150 joules, patient now sinus tach at 109 beats per minute 0815: Received call from radiologist Dr. Shine Hair, he states that the chest x-ray appears to be slightly widened unsure if it is due to technique, is recommending CT angio chest abdomen and pelvis, given patient with allergy to contrast discussion with radiologist agrees patient should be given Solu-Medrol and Benadryl prior to IV contrast administration we will continue with imaging at this time 0930: Patient re-evaluated, he states he is too weak to stand and therefore require admission to the hospital for fluids antibiotics as well as PT OT as well as cardiac monitoring given patient in intermittent SVT 1212: Had a discussion with Dr. Ta of Cardiology, he states that patient does not need to be transferred given repeat troponin downtrending, however he states that given patient was in unstable SVT also with rhabdo and possible cellulitis of the left lower extremity should be admitted and have an echo in the morning. Critical Care Time Critical Care Time Critical Care Time: Yes Total Critical Care Time: 35 Attestation: Authorized and Performed by: Deng Polanco DO Total critical care time: Approximately [45] minutes Due to a high probability of clinically significant, life threatening deterioration, the patient required my highest level of preparedness to intervene emergently and I personally spent this critical care time directly and personally managing the patient. This critical care time included obtaining a history; examining the patient; pulse oximetry; ordering and review of studies; arranging urgent treatment with development of a management plan; evaluation of patient's response to treatment; frequent reassessment; and, discussions with other providers. This critical care time was performed to assess and manage the high probability of imminent, life-threatening deterioration that could result in multi-organ failure. It was exclusive of separately billable procedures and treating other patients and teaching time. Please see MDM section and the rest of the note for further information on patient assessment and treatment. Discharge Plan Departure Patient Disposition: Admitted As Inpatient Clinical Impression: SVT (supraventricular tachycardia), Cellulitis of leg, Rhabdomyolysis, Elevated troponin
[2025-01-16 11:39] LABS: Appearance Urine UA CLEAR; Bilirubin Urine UA NEGATIVE (NEGATIVE); Color Urine UA YELLOW; Glucose Urine UA NEGATIVE (Negative); Ketones Urine UA 1+ (NEGATIVE); Leukocyte Esterase Urine UA NEGATIVE (NEGATIVE); Nitrite Urine UA NEGATIVE (Negative); Occult Blood Urine UA 2+ (Negative); Protein Urine UA TRACE (Negative); Specific Gravity Urine UA 1.015 (1.000-1.035); Urobilinogen Urine UA 0.2 E.U./dL (0.2); pH Urine UA 5.5 (4.5-8.0)
[2025-01-16 12:03] LABS: Culture Indicated Urine Cult Not Indicated
[2025-01-16 12:25] LABS: Troponin I 0.535 ng/mL (0.01-0.034)
--- NOTE | 2025-01-16 13:25 | P.CALLCOV_ITS ---
Call Coverage Note Note Narrative of Care Provided: 74 M asked to review for admission for cellulitis. He was on the floor for approximately 12 hours, he was too weak to get up and has left leg pain and R elbow pain currently. He has had chronic left leg swelling and redness for the past month or so. I was able to see he was seen and treated for a left foot cellulitis at the [facility] ER approximately a month ago with doxy and cephalexin. Labs with markedly elevated CK at 9385, Troponin 0.6 downtrended to 0.5. Was also in SVT and shocked. He reports dyspnea worse over the past month. After evaluation I have ordered L knee and tib fib xrays to rule out fracture. L leg is mildly erythematous diffusely in his calf, but bigger concern for possible phlegmasia cerulea dolens. DVT study ordered. Consider compartment syndrome as a possibility as well. Another concern in this situation would be for PE. Will add on pro-BNP, try to discuss with radiologist re: PE possibility given pulmonary HTN noted. Patient requires further evaluation to rule out life threatening measures such as phlegmasia cerulea dolens, compartment syndrome with fracture, PE (seemingly less likely given not hypoxic on room air) prior to acceptance at [facility]. Less concern for cellulitis.
[2025-01-16 13:52] LABS: Alanine Aminotransferase 73 IU/L (<50); Albumin 3.9 g/dL (3.5-5.0); Albumin Globulin Ratio 1.3 (1.0-2.8); Alkaline Phosphatase 65 U/L (38-126); Blood Urea Nitrogen 28 mg/dL (9-20); Calcium 8.4 mg/dL (8.4-10.2); Carbon Dioxide 20 mmol/L (22-32); Chloride 104 mmol/L (98-107); Estimated Glomerular Filt Rate > 60 mL/min (>60); Globulin 3.0 g/dL (1.7-4.1); Glucose 137 mg/dL (70-99); HEMOLYSIS 25 (0-50); Potassium 3.3 mmol/L (3.4-5.1); Sodium 136 mmol/L (137-145); Total Protein 6.9 g/dL (6.3-8.2)
[2025-01-16] MEDS: HYDROMORPHONE 0.5 MG INJ IV (13:58)
[2025-01-16 14:01] LABS: NT-proBNP (BNP-Adult 18+) 2170 pg/mL (<125)
--- NOTE | 2025-01-16 15:08 | PM.HP.1 ---
History of Present Illness History of Present Illness Date Patient Seen: 01/16/25 Time Patient Seen: 13:00 Date of Onset of Symptoms: 01/15/25 Chief complaint: SOB, SVT Narrative: 74 M with PMH of BACILIO, HTN, gout, HLD, prior colon cancer who presents with weakness after a fall. He fell yesterday and was too weak to get up for about 12 hours. He made one last attempt to get up and was able to reach his phone. His story around his fall is quite vague, and unable to further elicidate much history. He states he has been short of breath for months now, with worsening weakness and chronic L knee pain which is slightly worse in the past week. I was able to see he was seen and treated for a left foot cellulitis at the [facility] ER approximately a month ago with doxy and cephalexin. Labs with markedly elevated CK at 9385, Troponin 0.6 downtrended to 0.5. Was also in SVT and shocked. Initial EKG showed SVT, he was cardioverted, with repeat EKG after cardioversion showing sinus rhythm without evidence for acute ischemia. Initial Cr 1.4 improved with fluids along with elevated bili, ast, alt. Imaging was negative for occult fractures as a result of his fall. DVT of LLE was ordered by me per call coverage note previously and was negative. There is no evidence of PE on CTA and bedside US showed no gross abnormalities in wall motion though was limited due to his body habitus. Pro BNP was elevated at 2170. He was admitted for further management of acute rhabdomyolysis, possible sepsis, and further cardiac evaluation. 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) H/O colectomy History of spinal fusion S/P epidural steroid injection Hx of laminectomy (2017) Social History household members: none alcohol intake: current Meds Home Medications and Allergies Home Medications ?Medication ?Instructions ?Recorded ?Confirmed ?Type chlorthalidone 25 mg tablet 25 mg PO [facility] ##0 04/11/17 08/17/23 History finasteride 5 mg tablet 5 mg PO DAILY ##0 04/11/17 08/17/23 History allopurinol 100 mg tablet 400 mg PO DAILY 01/05/22 08/17/23 History amlodipine 10 mg tablet 2.5 mg PO DAILY 01/05/22 08/17/23 History potassium chloride 20 mEq 20 meq PO DAILY 01/05/22 08/17/23 History tablet,extended release rosuvastatin 5 mg tablet 2.5 mg PO DAILY 01/05/22 08/17/23 History docusate sodium 100 mg capsule 250 mg PO BID PRN Constipation 08/17/22 08/17/23 History from narcotic pain meds losartan 50 mg tablet 50 mg PO ONCE PM 08/17/22 08/17/23 History gabapentin 300 mg capsule 600 mg PO BID 02/28/23 08/17/23 History methocarbamol 500 mg tablet 1,000 mg PO BID 02/28/23 08/17/23 History solifenacin 10 mg tablet 10 mg PO DAILY 02/28/23 08/17/23 History tamsulosin 0.4 mg capsule 0.4 mg PO DAILY 02/28/23 08/17/23 History aspirin 81 mg tablet,delayed 81 mg PO BID #60 tabs 03/18/23 08/17/23 Rx release oxycodone 5 mg tablet 5 mg PO Q4H PRN pain #40 tabs 03/18/23 Rx ketorolac 10 mg tablet 10 mg PO Q6H PRN pain #14 tabs 03/19/23 Rx coenzyme Q10 100 mg capsule 200 mg PO DAILY 08/17/23 08/17/23 History (CoQ-10) ulxycijbkx-borpq-xrizvo-hyaluronic 2 tab PO DAILY 08/17/23 08/17/23 History acid 500 mg-100 mg-500 mg-40 mg tab hydrocodone 5 mg-acetaminophen 325 1 tab PO Q6H PRN pain #10 tabs 10/14/23 Rx mg tablet hydrocodone 5 mg-acetaminophen 325 1 tab PO QID PRN pain #10 tabs 02/02/24 Rx mg tablet Allergies Allergy/AdvReac Type Severity Reaction Status Date / Time Iodinated Contrast Media AdvReac Mild Hives Verified 01/16/25 07:45 semaglutide (From Javier) AdvReac Unknown Verified 01/16/25 07:45 Review of Systems Review of Systems Narrative: All other systems reviewed with the patient and are negative unless otherwise stated. Exam Vital Signs (past 8 hours): - 01/16/25 07:40 01/16/25 07:45 01/16/25 07:45 Temperature 98.4 F Pulse Rate 90 197 H 194 H Respiratory Rate 28 H 26 H Blood Pressure 80/52 L 77/53 L 77/53 L Pulse Oximetry 93 96 98 Oxygen Delivery Method Room Air 01/16/25 07:45 01/16/25 07:50 01/16/25 07:50 Temperature Pulse Rate 194 H 124 H 163 H Respiratory Rate 14 22 26 H Blood Pressure 77/53 L 78/44 L 78/44 L Pulse Oximetry 96 94 95 Oxygen Delivery Method Room Air 01/16/25 07:53 01/16/25 07:55 01/16/25 07:55 Temperature Pulse Rate 114 H 114 H 109 H Respiratory Rate 29 H 20 27 H Blood Pressure 107/59 L 107/59 L 119/66 Pulse Oximetry 94 96 91 Oxygen Delivery Method Room Air 01/16/25 08:00 01/16/25 08:00 01/16/25 08:05 Temperature Pulse Rate 103 H 105 H 104 H Respiratory Rate 17 30 H 26 H Blood Pressure 122/66 122/66 120/68 Pulse Oximetry 93 94 95 Oxygen Delivery Method Room Air 01/16/25 08:05 01/16/25 08:10 01/16/25 08:10 Temperature Pulse Rate 104 H 102 H 104 H Respiratory Rate 20 19 Blood Pressure 120/68 126/72 126/72 Pulse Oximetry 94 97 96 Oxygen Delivery Method Room Air 01/16/25 08:15 01/16/25 08:15 01/16/25 08:36 Temperature Pulse Rate 101 H 101 H 101 H Respiratory Rate 16 22 Blood Pressure 120/69 120/69 124/60 Pulse Oximetry 96 95 95 Oxygen Delivery Method Room Air 01/16/25 08:40 01/16/25 08:48 01/16/25 08:50 Temperature Pulse Rate 101 H 101 H 100 H Respiratory Rate 28 H 22 Blood Pressure 117/66 128/78 128/78 Pulse Oximetry 96 99 97 Oxygen Delivery Method Room Air Room Air 01/16/25 08:56 01/16/25 09:00 01/16/25 09:05 Temperature Pulse Rate 101 H 100 H 101 H Respiratory Rate 26 H Blood Pressure 122/71 112/59 L 104/57 L Pulse Oximetry 93 95 97 Oxygen Delivery Method Room Air Room Air 01/16/25 09:10 01/16/25 09:15 01/16/25 09:20 Temperature Pulse Rate 97 H 98 H 99 H Respiratory Rate 22 Blood Pressure 113/63 111/56 L 116/56 L Pulse Oximetry 95 94 94 Oxygen Delivery Method Room Air Room Air Room Air 01/16/25 09:30 01/16/25 10:10 01/16/25 10:30 Temperature Pulse Rate 95 H 97 H 97 H Respiratory Rate 20 26 H Blood Pressure 131/68 Pulse Oximetry 95 97 95 Oxygen Delivery Method Room Air 01/16/25 11:00 01/16/25 11:30 01/16/25 11:30 Temperature Pulse Rate 95 H 97 H Respiratory Rate Blood Pressure 149/74 H Pulse Oximetry 95 97 Oxygen Delivery Method 01/16/25 11:45 01/16/25 11:45 01/16/25 12:00 Temperature Pulse Rate 96 H 94 H Respiratory Rate 24 Blood Pressure 135/66 Pulse Oximetry 97 94 Oxygen Delivery Method Room Air 01/16/25 12:00 01/16/25 12:15 01/16/25 12:15 Temperature Pulse Rate 95 H Respiratory Rate Blood Pressure 140/71 135/69 Pulse Oximetry 95 Oxygen Delivery Method 01/16/25 12:30 01/16/25 12:30 01/16/25 12:45 Temperature Pulse Rate 93 H 93 H Respiratory Rate 24 Blood Pressure 141/73 H Pulse Oximetry 94 92 Oxygen Delivery Method 01/16/25 12:45 01/16/25 13:00 01/16/25 13:00 Temperature Pulse Rate 95 H Respiratory Rate 24 Blood Pressure 147/74 H 144/76 H Pulse Oximetry 96 Oxygen Delivery Method 01/16/25 13:15 01/16/25 13:15 01/16/25 13:30 Temperature Pulse Rate 94 H 97 H Respiratory Rate Blood Pressure 138/74 Pulse Oximetry 95 96 Oxygen Delivery Method 01/16/25 13:30 01/16/25 13:45 01/16/25 13:45 Temperature Pulse Rate 93 H Respiratory Rate Blood Pressure 150/80 H 145/80 H Pulse Oximetry 96 Oxygen Delivery Method 01/16/25 14:00 01/16/25 14:00 01/16/25 14:15 Temperature Pulse Rate 93 H 93 H Respiratory Rate 27 H Blood Pressure 154/80 H Pulse Oximetry 97 94 Oxygen Delivery Method 01/16/25 14:15 01/16/25 14:30 01/16/25 14:30 Temperature Pulse Rate 95 H Respiratory Rate Blood Pressure 155/82 H 156/78 H Pulse Oximetry 96 Oxygen Delivery Method Oxygen Delivery Method Room Air Narrative Exam Narrative: Gen: mild disheveled appearance, no acute distress, constant leg fidgeting CV: RRR no m/r/g Pulm: CTA b/l no wheezing rhonchi or rales Abd: S NT ND Ext: bilateral LE edema, L>R 1+ pitting. L ankle to knee with circumferential erythema, pink in color, without warmth but tenderness (though tender on other extremity as well). Objective ECG Impression: EKG 1: SVT EKG 2: NSR without acute ischemia. Labs 01/16/25 07:44 01/16/25 11:47 Labs: Laboratory Results - last 24 hr 01/16/25 01/16/25 01/16/25 07:44 07:45 08:03 WBC 22.4 H RBC 3.67 L Hgb 13.2 L Hct 37.5 L MCV 102.2 H MCH 36.0 H MCHC 35.2 RDW 16.3 H Plt Count 164 Neut % (Auto) 88.6 H Lymph % (Auto) 6.0 L [place] % (Auto) 4.8 Eos % (Auto) 0.0 L Baso % (Auto) 0.6 Neut # (Auto) 33420 H Lymph # (Auto) 1300 [place] # (Auto) 1100 H Eos # (Auto) 0 Baso # (Auto) 100 Sodium 135 L Potassium 3.6 Chloride 100 Carbon Dioxide 22 BUN 33 H Creatinine 1.40 H Estimated GFR 53 L BUN/Creatinine Ratio 23.6 H Glucose 138 H Lactate 3.3 H Calcium 8.9 Magnesium 1.6 Total Bilirubin 1.7 H AST 250 H ALT 80 H Alkaline Phosphatase 68 Total Creatine Kinase Cancelled 9385 H Troponin I 0.654 H* NT-Pro-B Natriuret Pep Total Protein 7.5 Albumin 4.3 Globulin 3.2 Albumin/Globulin Ratio 1.3 TSH 2.52 Urine Color Urine Appearance Urine pH Ur Specific [place] Urine Protein Urine Glucose (UA) Urine Ketones Urine Occult Blood Urine Nitrate Urine Bilirubin Urine Urobilinogen Ur Leukocyte Esterase Urine RBC Urine WBC Ur Squamous Epith Cells Urine Bacteria Ur Culture Indicated? Vol Urine Centrifuged SARS-CoV-2 (PCR) Negative Influenza A (RT-PCR) Flu a negative Influenza B (RT-PCR) Flu b negative RSV (PCR) Negative 01/16/25 01/16/25 01/16/25 10:35 11:28 11:47 WBC RBC Hgb Hct MCV MCH MCHC RDW Plt Count Neut % (Auto) Lymph % (Auto) [place] % (Auto) Eos % (Auto) Baso % (Auto) Neut # (Auto) Lymph # (Auto) [place] # (Auto) Eos # (Auto) Baso # (Auto) Sodium 136 L Potassium 3.3 L Chloride 104 Carbon Dioxide 20 L BUN 28 H Creatinine 1.03 Estimated GFR > 60 BUN/Creatinine Ratio 27.2 H Glucose 137 H Lactate 1.6 Calcium 8.4 Magnesium Total Bilirubin 1.3 AST 240 H ALT 73 H Alkaline Phosphatase 65 Total Creatine Kinase Troponin I 0.535 H* NT-Pro-B Natriuret Pep 2170 H Total Protein 6.9 Albumin 3.9 Globulin 3.0 Albumin/Globulin Ratio 1.3 TSH Urine Color Yellow Urine Appearance Clear Urine pH 5.5 Ur Specific [place] 1.015 Urine Protein Trace H Urine Glucose (UA) Negative Urine Ketones 1+ H Urine Occult Blood 2+ H Urine Nitrate Negative Urine Bilirubin Negative Urine Urobilinogen 0.2 Ur Leukocyte Esterase Negative Urine RBC 1-5/hpf Urine WBC 0-1/hpf Ur Squamous Epith Cells 0-1 /hpf Urine Bacteria None seen Ur Culture Indicated? Cult not indicated Vol Urine Centrifuged 10ml (spun) SARS-CoV-2 (PCR) Influenza A (RT-PCR) Influenza B (RT-PCR) RSV (PCR) Assessment & Plan Assessment & Plan narrative: 1. Rule out sepsis secondary to possible L leg cellulitis - continue ceftriaxone for now - MRSA swab and if positive start vanco - unclear if left leg is erythematous due to cellulitis or chronic venous stasis. WBC could be elevated due to rhabdo/stress response as well - follow up blood cultures, UA not inidicative of infection, no obvious infection noted on CT chest abdomen pelvis either. - SOFA score would be >2 with elevated bili and WALLACE. - LLE DVT negative. 2. Acute atraumatic rhabdomyolysis, ground level fall - CK > 9000, UA with 2+ blood with 0-1 RBC. - Continue IV fluids, NS @100 cc - PT / OT ordered - imaging in ER including head CT, chest / abd/pelv CT, and radiographs negative for fracture or obvious injury as a result of his fall. 3. WALLACE - Due to rhabdo, already improving with fluids in the ER. - continue IV fluids. - will check daily CK. 4. Myocardial injury - initial troponin 0.6 improved to 0.5 on repeat - no chest pain, post SVT EKG without obvious ischemia. - possibly related to strain from arrythmia or shock. - TTE ordered. No noted history that I can find of CHF. 5. BACILIO - did see that patient's desats when sleeping when evaluating in the ER - will order PAP overnight 6. Hypokalemia - repleted, will continue to follow. Mg 1.6 will continue to follow as well. 7. HTN - continue home medications, hold home chlorthalidone for now given rhabdo and WALLACE on admit. Code: Full, surrogate is patient's cousin DVT: Lovenox daily I have utilized all available immediate resources to obtain, update, or review the patient's current medications. Dispo: patient admitted under inpatient status. Unclear if will be able to discharge home or possible SNF, will have PT/OT evaluations. Additional history obtained via discussions with the ER provider. These discussions contributed to the creation of the above assessment and plan. I have reviewed patient's presenting documentation, labs, and imaging personally. Time-Based Coding :: [TOTAL MINUTES] spent with patient and on the chart (including review of chart, obtaining history, exam, reviewing outside data, placing orders, documenting exam and treatment plan, and counseling patient) on [DATE].
[2025-01-16] MEDS: SODIUM CHLORIDE 0.9% 1,000 ML 100 ML IV (17:13)
--- NOTE | 2025-01-16 17:54 | PC.NURSE ---
Admit Note Patient arrived to room 208 from ER at 1638. Assisted to bed via slider board. Clothing, wallet, and cell phone with pt. Declines to lock up any valuables at this time. No home meds with patient. Multiple skin issues and abrasions, see admission skin assessment. Oriented to room and to call light, bed, tv controls. Call light within reach, bed alarm is on. Pt is alert and oriented self, place, and date but is forgetful at times. Able to report some of the events before being brought to ER but overall lacks detail. Unable to state who is PCP is and is unable to recall which home meds he takes on a daily basis. Unable to complete home med reconciliation at this time. Reports sees a PCP at the [facility] clinic and that they would have a med list. Clinic called and fax number obtained. Faxed a request for records (including med list).
[2025-01-16] MEDS: POTASSIUM CHLORIDE 20 MEQ TAB 40 MEQ PO (18:35)
[2025-01-16] MEDS: ENOXAPARIN 40 MG/0.4 ML SYRINGE SUBCUT (20:40)
[2025-01-16] MEDS: HYDROCODONE/ACET 5/325 TABLET 1 TAB PO (20:41)
--- NOTE | 2025-01-16 21:24 | PC.NURSE ---
Patient is alert and oriented. Breath sounds CTA with RA sat of 93%. Endorses feeling minimally SOB at rest and reports it gets worse with activity although no dyspnea noted and is able to speak in complete sentences. HRR with telemetry reading of SR. Denies nausea. BT present and abdomen is soft. Voiding per urinal and denies any dysuria. Is being assisted to reposition q2h as skin of inner buttocks is reddened but blanchable. Complains of intermittent, sharp, 6/10 pain in back and bilateral feet so was medicated with Vicodin with pain starting to candi. Reports tingling sensation in bilateral feet due to neuropathy which is long standing. Fall risk score is high and bed alarm is activated.
[2025-01-16] MEDS: ACETAMINOPHEN 325 MG TABLET 650 MG PO (23:25)
[2025-01-16] MEDS: SODIUM CHLORIDE 0.9% FLUSH 10 ML IV (23:26)
[2025-01-17] VITALS (10 sets, daily range): BP systolic 104–130; BP diastolic 61–90; PULSE 77–89; RESP 15–24; TEMP 36.4–36.8; O2SAT 93–97
[2025-01-17] MEDS: SODIUM CHLORIDE 0.9% 1,000 ML 100 ML IV (02:48)
[2025-01-17 06:15] LABS: Add Manual Diff / Slide Review NO; Hematocrit 33.3 % (41-53); Hemoglobin 11.8 g/dL (13.5-17.5); Lymphocytes Absolute Auto 1200 /uL (1100-4500); Mean Corpuscular HGB Conc 35.3 % (30-36); Mean Corpuscular Hemoglobin 35.9 PG (26-34); Mean Corpuscular Volume 101.9 fL (80-100); Platelet Count 127 X10^3/uL (150-400)
[2025-01-17 06:28] LABS: Alanine Aminotransferase 69 IU/L (<50); Albumin 3.3 g/dL (3.5-5.0); Albumin Globulin Ratio 1.2 (1.0-2.8); Alkaline Phosphatase 59 U/L (38-126); Blood Urea Nitrogen 21 mg/dL (9-20); Calcium 8.3 mg/dL (8.4-10.2); Carbon Dioxide 24 mmol/L (22-32); Chloride 106 mmol/L (98-107); Estimated Glomerular Filt Rate > 60 mL/min (>60); Globulin 2.7 g/dL (1.7-4.1); Glucose 111 mg/dL (70-99); HEMOLYSIS < 15 (0-50); Magnesium 2.1 mg/dL (1.6-2.3); Potassium 3.8 mmol/L (3.4-5.1); Sodium 136 mmol/L (137-145); Total Protein 6.0 g/dL (6.3-8.2)
[2025-01-17 06:35] LABS: Creatine Kinase 2403 U/L (55-170)
--- NOTE | 2025-01-17 07:35 | P.PN_ITS ---
Subjective Subjective Interval history: Summary (From H&P): 74 M with PMH of BACILIO, HTN, gout, HLD, prior colon cancer who presents with weakness after a fall. He fell yesterday and was too weak to get up for about 12 hours. He made one last attempt to get up and was able to reach his phone. His story around his fall is quite vague, and unable to further elicidate much history. He states he has been short of breath for months now, with worsening weakness and chronic L knee pain which is slightly worse in the past week. I was able to see he was seen and treated for a left foot cellulitis at the [facility] ER approximately a month ago with doxy and cephalexin. Labs with markedly elevated CK at 9385, Troponin 0.6 downtrended to 0.5. Was also in SVT and shocked. Initial EKG showed SVT, he was cardioverted, with repeat EKG after cardioversion showing sinus rhythm without evidence for acute ischemia. Initial Cr 1.4 improved with fluids along with elevated bili, ast, alt. Imaging was negative for occult fractures as a result of his fall. DVT of LLE was ordered by me per call coverage note previously and was negative. There is no evidence of PE on CTA and bedside US showed no gross abnormalities in wall motion though was limited due to his body habitus. Pro BNP was elevated at 2170. He was admitted for further management of acute rhabdomyolysis, possible sepsis, and further cardiac evaluation. S: He was ongoing and redness, swelling, and pain in the left leg, knee and groin. He was also having dyspnea with exertion which has been a new symptom for the last 3 weeks. He was an intermittent cough, and denies long-term smoking. He does smoke marijuana however. He did smoke a pipe for 3 years when his 20s. Exam Vital Signs (past 8 hours): - 01/17/25 00:00 01/17/25 00:00 01/17/25 03:43 Temperature 97.9 F 98.1 F Pulse Rate 86 80 Respiratory Rate 18 15 Blood Pressure 104/61 112/73 Pulse Oximetry 93 93 95 Oxygen Delivery Method Room Air Oxygen Flow Rate 0 0 01/17/25 03:43 Temperature Pulse Rate Respiratory Rate Blood Pressure Pulse Oximetry 95 Oxygen Delivery Method Room Air Oxygen Flow Rate 0 Oxygen Delivery Method Room Air Oxygen Flow Rate 0 Narrative Exam Narrative: NAD Normal speech Lungs clear with no inspiratory or expiratory wheezing. CV RRR Abdomen soft, NT Left leg is swollen and red [id number]. It was warm to touch. The knee is not swollen or tender. Objective Imaging Multiple studies: : Radiologist's impression: Chest abdomen and pelvis CTA: 1. No evidence of acute aortic syndrome. The aorta is patent and normal in caliber throughout. Atherosclerotic vascular calcifications are present. 2. 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 Otherwise, no significant stenosis is seen. 3. Dilated main pulmonary artery, suggestive of pulmonary hypertension. 4. Areas of fat density with associated calcification in the left pelvis and adjacent to the ascending colon as described above, may represent areas of fat necrosis. These are stable compared to prior exam. Head CT: No acute intracranial pathology. Chest x-ray: Questionable widening of the mediastinum. Recommend chest CT to exclude acute aortic syndrome. Vascular ultrasound: No findings of lower extremity deep venous thrombosis. Tibia fibula x-ray: No acute osseous abnormality. If pain persists with conservative management, consider repeat x-ray in 10-14 days or cross-sectional imaging. Knee x-ray: No acute osseous abnormality. If pain persists with conservative management, consider repeat x-ray in 10-14 days or cross-sectional imaging. Echo: 1) Mildly increased left ventricular thickness (concentric) with normal size, normal wall motion, and normal systolic function (EF 55-60%). 2) Mildly enlarged right ventricle with normal function. 3) No significant valvular abnormalities. 4) No prior Echo available for comparison. Labs 01/17/25 06:06 01/17/25 06:06 Labs: Laboratory Results - last 24 hr 01/16/25 01/16/25 01/16/25 07:44 07:45 08:03 WBC 22.4 H RBC 3.67 L Hgb 13.2 L Hct 37.5 L MCV 102.2 H MCH 36.0 H MCHC 35.2 RDW 16.3 H Plt Count 164 Neut % (Auto) 88.6 H Lymph % (Auto) 6.0 L Bailey % (Auto) 4.8 Eos % (Auto) 0.0 L Baso % (Auto) 0.6 Neut # (Auto) 98293 H Lymph # (Auto) 1300 Bailey # (Auto) 1100 H Eos # (Auto) 0 Baso # (Auto) 100 Sodium 135 L Potassium 3.6 Chloride 100 Carbon Dioxide 22 BUN 33 H Creatinine 1.40 H Estimated GFR 53 L BUN/Creatinine Ratio 23.6 H Glucose 138 H Lactate 3.3 H Calcium 8.9 Magnesium 1.6 Total Bilirubin 1.7 H AST 250 H ALT 80 H Alkaline Phosphatase 68 Total Creatine Kinase Cancelled 9385 H Troponin I 0.654 H* NT-Pro-B Natriuret Pep Total Protein 7.5 Albumin 4.3 Globulin 3.2 Albumin/Globulin Ratio 1.3 TSH 2.52 Urine Color Urine Appearance Urine pH Ur Specific [place] Urine Protein Urine Glucose (UA) Urine Ketones Urine Occult Blood Urine Nitrate Urine Bilirubin Urine Urobilinogen Ur Leukocyte Esterase Urine RBC Urine WBC Ur Squamous Epith Cells Urine Bacteria Ur Culture Indicated? Vol Urine Centrifuged SARS-CoV-2 (PCR) Negative Influenza A (RT-PCR) Flu a negative Influenza B (RT-PCR) Flu b negative RSV (PCR) Negative 01/16/25 01/16/25 01/16/25 10:35 11:28 11:47 WBC RBC Hgb Hct MCV MCH MCHC RDW Plt Count Neut % (Auto) Lymph % (Auto) Bailey % (Auto) Eos % (Auto) Baso % (Auto) Neut # (Auto) Lymph # (Auto) Bailey # (Auto) Eos # (Auto) Baso # (Auto) Sodium 136 L Potassium 3.3 L Chloride 104 Carbon Dioxide 20 L BUN 28 H Creatinine 1.03 Estimated GFR > 60 BUN/Creatinine Ratio 27.2 H Glucose 137 H Lactate 1.6 Calcium 8.4 Magnesium Total Bilirubin 1.3 AST 240 H ALT 73 H Alkaline Phosphatase 65 Total Creatine Kinase Troponin I 0.535 H* NT-Pro-B Natriuret Pep 2170 H Total Protein 6.9 Albumin 3.9 Globulin 3.0 Albumin/Globulin Ratio 1.3 TSH Urine Color Yellow Urine Appearance Clear Urine pH 5.5 Ur Specific [place] 1.015 Urine Protein Trace H Urine Glucose (UA) Negative Urine Ketones 1+ H Urine Occult Blood 2+ H Urine Nitrate Negative Urine Bilirubin Negative Urine Urobilinogen 0.2 Ur Leukocyte Esterase Negative Urine RBC 1-5/hpf Urine WBC 0-1/hpf Ur Squamous Epith Cells 0-1 /hpf Urine Bacteria None seen Ur Culture Indicated? Cult not indicated Vol Urine Centrifuged 10ml (spun) SARS-CoV-2 (PCR) Influenza A (RT-PCR) Influenza B (RT-PCR) RSV (PCR) 01/17/25 06:06 WBC 11.8 H RBC 3.27 L Hgb 11.8 L Hct 33.3 L MCV 101.9 H MCH 35.9 H MCHC 35.3 RDW 16.1 H Plt Count 127 L Neut % (Auto) 82.6 H Lymph % (Auto) 9.8 L Bailey % (Auto) 7.2 Eos % (Auto) 0.0 L Baso % (Auto) 0.4 Neut # (Auto) 9700 H Lymph # (Auto) 1200 Bailey # (Auto) 800 Eos # (Auto) 0 Baso # (Auto) 0 Sodium 136 L Potassium 3.8 Chloride 106 Carbon Dioxide 24 BUN 21 H Creatinine 0.80 Estimated GFR > 60 BUN/Creatinine Ratio 26.3 H Glucose 111 H Lactate Calcium 8.3 L Magnesium 2.1 Total Bilirubin 0.8 AST 178 H ALT 69 H Alkaline Phosphatase 59 Total Creatine Kinase 2403 H D Troponin I NT-Pro-B Natriuret Pep Total Protein 6.0 L Albumin 3.3 L Globulin 2.7 Albumin/Globulin Ratio 1.2 TSH Urine Color Urine Appearance Urine pH Ur Specific [place] Urine Protein Urine Glucose (UA) Urine Ketones Urine Occult Blood Urine Nitrate Urine Bilirubin Urine Urobilinogen Ur Leukocyte Esterase Urine RBC Urine WBC Ur Squamous Epith Cells Urine Bacteria Ur Culture Indicated? 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 Rule out sepsis secondary to possible L leg cellulitis. Blood cultures remain negative. - continue ceftriaxone for now - MRSA swab and if positive start vanco - unclear if left leg is erythematous due to cellulitis or chronic venous stasis. WBC could be elevated due to rhabdo/stress response as well - follow up blood cultures, UA not inidicative of infection, no obvious infection noted on CT chest abdomen pelvis either. - SOFA score would be >2 with elevated bili and WALLACE. - LLE DVT negative. 2. Acute atraumatic rhabdomyolysis, ground level fall. Imroved. - Stop IVF. 3. WALLACE, improved. - Stop IVF. 4. SVT and demand ischemia, improved. - initial troponin 0.6 improved to 0.5 on repeat - no chest pain, post SVT EKG without obvious ischemia. - ECHO without WMA. 5. BACILIO, stable. - APAP at night. 6. Hypokalemia, improved. 7. HTN, stable. - continue home medications, hold home chlorthalidone for now given rhabdo and WALLACE on admit. PLAN: -continue antibiotics and leg elevation. -discontinue IV fluids -advance activity with physical therapy. PEDRO PABLO: 01/18, home with . Time-Based Coding :: [TOTAL MINUTES] spent with patient and on the chart (including review of chart, obtaining history, exam, reviewing outside data, placing orders, documenting exam and treatment plan, and counseling patient) on [DATE]. Quality VTE Deep Vein Thrombosis/Pulmonary Embolism Present on Admission: No
[2025-01-17] MEDS: HYDROCODONE/ACET 5/325 TABLET 1 TAB PO (08:13)
[2025-01-17] MEDS: ENOXAPARIN 40 MG/0.4 ML SYRINGE SUBCUT ×2 (08:14→20:49)
[2025-01-17] MEDS: SODIUM CHLORIDE 0.9% FLUSH 10 ML IV ×2 (08:14→21:24)
--- NOTE | 2025-01-17 08:55 | OT.IP.EVAL ---
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 Activities of Daily Pt states able to do ADL and IADL needs with increased Living and IADL's time and drives. Pt also takes care of his cats. Prior Functional Pt states has had trouble with his left knee since his Level (Other details L TKA 03/18/23 and has been unsteady on his feet since ) then and pt states feels that his knee has not healed properly. Social History Household Members none Living Arrangements House Number of Floors ( One Floor Floors) Home Environment High Toilet,Tub/Shower,Ramp Home Equipment Front Wheel Walker,Four Wheel Walker,Straight Cane,Tub Transfer Bench,Hand Held Shower,Grab Bars Near Toilet, Grab Bars In Shower Additional Social Pt states in the past month has been SOB and fatigues History Comment quickly. M2 OT-IP Current Condition Start: 01/17/25 10:23 Freq: Status: Active Protocol: Document 01/17/25 10:24 [facility] (Rec: 01/17/25 10:54 [facility] Desktop) Occupational Therapy Current Condition Current Condition Evaluation Date 01/17/25 Treatment Diagnosis Sepsis, acute traumatic rhabodo due to fall Diagnosis Onset Date 01/16/25 M3 OT- IP Subjective and Pain Start: 01/17/25 10:23 Freq: Status: Active Protocol: Document 01/17/25 10:24 [facility] (Rec: 01/17/25 10:54 [facility] Desktop) OT- Subjective Occupational Therapy Visit Type Type Initial Evaluation Visit Start Time 08:55 Visit Stop Time 09:45 Occupational Therapy Visit Comments Patient Comments Pt agreed to get up to use the bathroom and do oral care needs. Patient/Caregiver TO go home. Goals OT Pain Assessment Pain When Pain Assessed At Rest Pain Present Pain Present Pain Reported Location back/legs Intensity 9 Scale Used Numeric (0 - 10) M4 OT- IP ADL's Start: 01/17/25 10:23 Freq: Status: Active Protocol: Document 01/17/25 10:24 [facility] (Rec: 01/17/25 10:54 [facility] Desktop) OT [id number] General Evaluation Self-Feeding Ability Independent OT ADL-Grooming General Evaluation Grooming Ability Standby Assistance Comments OT Grooming Comments Able to do while standing with FWW in front of the sink after set-up. OT ADL-Oral Care General Eval Oral Care Ability Independent OT ADL-Dressing General Eval Lower Body Dressing Standby Assistance,Contact Guard Assistance Ability Comments OT Dressing Comments Increased time and able to cross his legs over to karyna/ doff his socks/shoes. Suggested way for energy conservation for pt for ADL needs. Pt also tends to hold his breath during exertion when leaning forwards for dressing needs. Pt would benefit from LB dressing equipment. OT ADL-Toileting Comments OT Toileting Not performed. Comments OT ADL-Bathing Comments OT Bathing Comments Best for pt to use the tub bench at home for safety. TO try shower with pt tomorrow. M5 OT- IP IADL's Start: 01/17/25 10:23 Freq: Status: Active Protocol: Document 01/17/25 10:24 [facility] (Rec: 01/17/25 10:54 [facility] Desktop) OT-Instrumental Activities of Daily Living Home Safety Awareness Awareness of Need Good Awareness for Assistance at Home Ability to Problem Able to Problem Solve Solve Emergency Situations Medication Management Medication Pt uses a pill organizer. Management Comments Money Management Money Management Pt does his own. Comments Meal Preparation Meal Preparation Pt may benefit from assist. Comments Human Services Case Manager Human Services Case Manager Pt may benefit from assist. Comments M6 OT- IP Functional Cognition Start: 01/17/25 10:23 Freq: Status: Active Protocol: Document 01/17/25 10:24 [facility] (Rec: 01/17/25 10:54 [facility] Desktop) Cognitive Factors Limiting Selfcare Function Cognitive Ability Level of Alertness Alert Patient Orientation Name,Age,Birthday,Month,Date,Year,Day of Week,Place, Situation Attention Span Capable of Focused Attention,Capable of Sustained Ability Attention Ability to Follow Able to Follow Multi-Step Commands Commands Memory Description Short Term Impaired Cognitive Comments Cognitive Assessment Pt forget that he was given pain medications earlier. Comments Pt O x4, able to accurately answer all home safety situations with good accuracy, and able to follow commands for ADL and mobility needs. Pt does need safety cues to push up form the bed to stand. Pt appears close to his baseline for cognitive needs, continue to assess. Pt agreed to call for assist as needed. OT- Vision and Hearing OT- Hearing Assessment OT- Hearing Hearing Impaired,Use of Hearing Aids Assessment OT- Vision Assessment Visual Acuity Glasses All The Time Visual Attentiveness WFL Occular Pursuits WFL Visual Convergence WFL Visual Candelario WFL Diplopia Absent Vision Assessment Pt hearing aids here in the hospital. Comments M7 OT- IP Mobility and Balance Start: 01/17/25 10:23 Freq: Status: Active Protocol: Document 01/17/25 10:24 [facility] (Rec: 01/17/25 10:54 [facility] Desktop) OT- Bed Mobility Assessment Supine to Sit Supine to Sit Assist Standby Assistance,Bedrails Sit to Supine Sit to Supine Assist Standby Assistance,Bedrails OT-Transfer Assessment Sit to and From Stand Sit to and from Contact Guard Assistance Stand Transfers Transfer Ability Contact Guard Assistance Technique Transfer Destination Bed,Chair Transfer Technique Stand Step Pivot Devices Transfer Assistive Gait Belt,Front Wheeled Walker Devices Comments Mobility Comments VC to push up from the bed when coming to stand to the FWW. CGA as pt a little unsteady on his feet and also quickly fatigued and gets SOB. OT- Balance Assessment Sitting Balance and Reactions Static Sitting Normal Balance Ability Dynamic Sitting Good Balance Ability Standing Balance and Reactions Static Standing Good Balance Ability Dynamic Standing Fair Balance Ability Comments Other Balance Tests/ Pt a little unsteady on his feet when walking with the Deviations/Treatment FWW to and from the sink. O2 on RA initially 93% and : after up on his feet increased to 97%. M8 OT- IP Objective Assessments Start: 01/17/25 10:23 Freq: Status: Active Protocol: Document 01/17/25 10:24 [facility] (Rec: 01/17/25 10:54 [facility] Desktop) OT Gross Range of Motion Upper Extremity Range of Motion Assessment Bilaterally Impaired OT Strength Upper Extremity Strength Assessment Bilaterally Impaired Comments Strength Comments BUE shoulder 3-/5 , elbow to distal 5/5 Pt has history of rotator cuff injuries. Per pt states right one was fixed but did not heal properly and still has issues with the left one. M9 OT- IP Assessment and Plan Start: 01/17/25 10:23 Freq: Status: Active Protocol: Document 01/17/25 10:24 [facility] (Rec: 01/17/25 10:54 [facility] Desktop) OT Summary Assessment and Plan Potential Rehabilitation Good Potential Analytic Complexity Moderate at Evaluation Summary OT Impairments Range of Motion,Strength,Balance,Functional Mobility, Dressing,Toileting,Bathing,Toilet Transfers,Shower Transfers,Activity Tolerance Progress Towards Slow Progress due to Pain,Slow Progress due to Medical Goals Issues,Slow Progress due to Activity Tolerance Assessment Summary Pt MOD complexity and main barriers are pain, decreased activity tolerance, easily gets SOB, and needing increased time and some assist for ADL and mobility needs. Pt states feels that his left knee has not healed properly since his L TKA in 02/2023 and left knee feels warmer to the touch than his right knee on OT eval. Pt would benefit from short skilled rehab at this time. Hopeful pt to get better as he becomes medically stable and possibly go home. Goals Self-Feeding Goal Independent Grooming Goal Independent Dressing Goal Independent Toileting Goal Independent Bathing Goal Independent Toilet Transfer Goal Independent Shower Transfer Goal Independent Days to Meet Goals 10 Frequency of Treatment Other frequency 5x/week Treatment Plan OT Treatment Plan ADL Training,Functional Mobility,Patient/Family Education,Discharge Planning Other Treatment Shower, [place] Making B Recommendations and Next Treatment Focus Discharge Recommendations OT Discharge SNF Rehab Recommendations Other Discharge Hopeful as pt medically clears, home with assist and Recommendations home health. Transportation Needs Private Vehicle,Wheelchair/Cabulance at Discharge
--- NOTE | 2025-01-17 09:00 | PT.IIE ---
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) Hx of laminectomy (2018) S/P epidural steroid injection Medical History (Last Reviewed 01/17/25 @ 07:38 by Ortega Denny MD) History of colon cancer BACILIO treated with BiPAP Physical Therapy Inpatient Evaluation/Re-Eval M1 PT/OT-IP Prior Functional Status Start: 01/17/25 10:23 Freq: NEEDED Status: Active Protocol: Document 01/17/25 10:24 [facility] (Rec: 01/17/25 10:54 [facility] Desktop) Medical Review Prior Functional Status Communication I Mobility and Gait Pt states furniture cruises in the house and use of SPC outside and prior used a 4ww outside. Activities of Daily Pt states able to do ADL and IADL needs with increased Living and IADL's time and drives. Pt also takes care of his cats. Prior Functional Pt states has had trouble with his left knee since his Level (Other details L TKA 03/18/23 and has been unsteady on his feet since ) then and pt states feels that his knee has not healed properly. Social History Household Members none Living Arrangements House Number of Floors ( One Floor Floors) Home Environment High Toilet,Tub/Shower,Ramp Home Equipment Front Wheel Walker,Four Wheel Walker,Straight Cane,Tub Transfer Bench,Hand Held Shower,Grab Bars Near Toilet, Grab Bars In Shower Additional Social Pt states in the past month has been SOB and fatigues History Comment quickly. M1 PT/OT-IP Prior Functional Status Start: 01/17/25 16:32 Freq: NEEDED Status: Active Protocol: Document 01/17/25 08:20 [facility] (Rec: 01/17/25 19:54 [facility] Laptop) Medical Review Prior Functional Status Medical History Yes Reviewed Mobility and Gait Pt states furniture cruises in the house and use of SPC outside and prior used a 4ww outside. Activities of Daily Pt states able to do ADL and IADL needs with increased Living and IADL's time and drives. Pt also takes care of his cats. Prior Functional Pt states has had trouble with his left knee since his Level (Other details L TKA 03/18/23 and has been unsteady on his feet since ) then and pt states feels that his knee has not healed properly. Social History Household Members none Living Arrangements House Number of Stairs To Ramp into house. Single level home. Enter/Railing? Home Environment High Toilet,Tub/Shower Home Equipment Front Wheel Walker,Straight Cane,Raised Toilet Seat Without Armrests,Tub Transfer Bench,Grab Bars In Shower Employment Status Retired Additional Social Lives alone. History Comment M2 PT-IP Current Condition Start: 01/17/25 16:32 Freq: NEEDED Status: Active Protocol: Document 01/17/25 08:20 [facility] (Rec: 01/17/25 19:51 [facility] Laptop) Physical Therapy Current Condition Current Condition Evaluation Date 01/17/25 Treatment Diagnosis SOB/SVT Onset Date 01/17/25 M3 PT-IP Subjective Start: 01/17/25 16:32 Freq: NEEDED Status: Active Protocol: Document 01/17/25 08:20 [facility] (Rec: 01/17/25 19:51 [facility] Laptop) Subjective Physical Therapy Visit Type Type Initial Evaluation Visit Start Time 08:20 Visit Stop Time 09:00 Physical Therapy Visit Comments Patient Comments Pt reports doing much better today. Weighs at least 300#, 6 ft 3 in tall. States he was getting out of bed and started to fall to floor, but used his arms to try and help slow his fall to the ground. States he was able to get up after 6 attempts and 12 hours later, with 2 episodes of incontinence. Patient Goals Pt wants to go home on DC Therapy Pain Assessment Pain When Pain Assessed At Rest Location back/legs Intensity 7 Scale Used Numeric (0 - 10) M4 PT-IP Mobility and Gait Start: 01/17/25 16:32 Freq: NEEDED Status: Active Protocol: Document 01/17/25 08:20 [facility] (Rec: 01/17/25 19:51 [facility] Laptop) PT-Bed Mobility Assessment Rolling Type of Rolling Roll to Left Supine to Sit Supine to Sit Minimal Assistance Scooting Scooting to Edge of Standby Assistance Bed PT-Transfer Assessment Sit to and From Stand Sit to and from Minimal Assistance Stand Equipment Transfer Assistive Gait Belt,Front Wheeled Walker Device Orthotic/Prosthetic No Devices or Brace: Transfers Transfer Destination Bedside Commode Transfer Technique Stepping to commode Transfer Ability Level of Assist Contact Guard Assistance Comments Mobility Comments Pt needed cuing of hand placement on walker and use of walker. Double Gait belt. Bed alarm disabled by BLINDSTITCH LINING FELLER. BLINDSTITCH LINING FELLER present during transfers . Gait Assessment Gait Gait Assistance Minimum Assistance Required: Distance (Feet) 2 Able to Maintain Yes Weight Bearing Status During Gait Assistive Devices Assistive Device Gait Belt,Front Wheeled Walker Orthotic/Prosthetic No Devices or Brace: Gait Deviations General Gait Pattern Decreased Stride Length,Flexed Trunk Factors Limiting Gait Function Factors Limiting Decreased Activity Tolerance,Decreased Strength Gait Function Comments Gait Comments Bariatric FWW & Double length gait belt used. Pt able to follow directions for Egress Test and passed test of Marching in place, side stepping left & right before turning and backing up into bariatric commode. Pt wore red hospital socks that were barely on feet. Requested nursing change socks to XL red socks. BLINDSTITCH LINING FELLER present during gait. Stair Climbing Assessment Comments Stair Climbing Not appropriate. Pt has no stairs at home. Comments PT-Balance Assessment Sitting Balance and Reactions Static Sitting Good Balance Ability Dynamic Sitting Good Balance Ability Standing Balance and Reactions Static Standing Fair Balance Ability Dynamic Standing Fair Balance Ability Device Used FWW M5 PT-IP Objective Assessments Start: 01/17/25 16:32 Freq: NEEDED Status: Active Protocol: Document 01/17/25 08:20 [facility] (Rec: 01/17/25 19:51 [facility] Laptop) Gross Range of Motion Upper Extremity ROM Assessment Within Functional Limits Lower Extremity ROM Assessment Within Functional Limits Strength Upper Extremity Strength Assessment Within Functional Limits Lower Extremity Strength Assessment Within Functional Limits Sensation Assessment Sensation Gross Sensation WNL Other Assessments Other Other Assessments Start with pt semi-reclined: BP 127/90, HR 84. After activity (sitting on commode): 114/69, HR 91. M6 PT-IP Treatment Start: 01/17/25 16:32 Freq: NEEDED Status: Active Protocol: Document 01/17/25 08:20 [facility] (Rec: 01/17/25 19:51 [facility] Laptop) Physical Therapy Treatment Exercises Exercises Ankle Pumps,Heel Slides,Shoulder Flexion,Elbow Flexion/ Extension Other Treatments Other Treatment Nursing notified of pt needs: XL red socks and chair Performed alarm. M7 PT-IP Assessment and Plan Start: 01/17/25 16:32 Freq: NEEDED Status: Active Protocol: Document 01/17/25 08:20 [facility] (Rec: 01/17/25 19:51 [facility] Laptop) PT Summary Assessment and Plan Potential Rehabilitation Good Potential Status of Condition Evolving at Evaluation Summary Impairments Pain,Bed Mobility,Transfers,Gait,Activity Tolerance Assessment Summary Pt is a 74 yo male who suffered a fall from his bed, slowing the descent with his arms and causing bruising of his L LE. He appears to have good functional strength but is slow and tires easily. He is able to follow directions well and is safe for ambulation away from the bed after passing the Egress Test. He was able to walk with FWW away from the bed to turn and back up into bariatric commode. His vitals did not indicate distress with mobility, but blood pressure did decrease after gait. Only initial dizziness from semi -supine to sit, otherwise no further complaints of dizziness. BLINDSTITCH LINING FELLER was present while getting pt OOB and onto commode. Pt was left sitting on commode with BLINDSTITCH LINING FELLER present and agreeable to get pt to chair or back to bed when he completed his BM. Pt is expected to progress well towards improving his independence, but may need a short stay at [facility] before going home if he is not able to progress quickly with therapy. ONgoing assessment is needed. Goals Bed Mobility Goal Independent Transfer Goal Independent Gait Goal Independent,Front Wheel Walker Gait Distance 100' Days to Meet Goals 3 Frequency of Treatment Frequency Of Twice a Day Treatment Treatment Plan Physical Therapy Bed Mobility Training,Transfer Training,Gait Training, Treatment Plan Therapeutic Exercise Weight Bearing Status Weight Bearing Full Weight Bearing Status Recommendations To Nursing Amount of Assist Standby Assistance,1 Person Assist Needed Discharge Recommendations PT Discharge Home with Assistance,Acute Rehab Recommendations Other Discharge Further assesment needed. Recommendations Equipment Needed for Bariatric Walker Home Before Discharge Transportation Needs Private Vehicle at Discharge - PT assist No
[2025-01-17] MEDS: cefTRIAXone 2,000 MG in SODIUM CHLORIDE 0.9% 100 ML 200 MG IV (10:07)
--- NOTE | 2025-01-17 11:03 | DIET.CONS ---
Dietary Consultation Note Admission Date: 01/16/2025 15:02 Assessment: 74 y M admitted for rhabdomyolysis, WALLACE. Dietitian consulted for MNA score. Attempted visit, pt getting bed bath per RN, will f/u for bedside assessment. EMR reviewed. Weight stable. Lower extremity edema noted on H&P. 100% PO intakes and DFM reviewed for meal adequacy. Per H&P pt was on ground for 12 hours after fall and reporting SOB for months with worsening weakness and knee pain. Ht: 190.5 cm Wt: 141.5 kg BMI: 38.9 UBW: 05/04/24: 139.706 kg, 09/08/24: 140.614 kg Last BM: 01/16/25 (01/16/25 17:02) MNA: 11 Tone Score: 19 Diet: 01/16/25 Dinner General (Regular) Diet Diet Modifications: Nutrition Percent Meal Consumed 100% 01/17/25 09:07 Percent Meal Consumed 100% 01/16/25 18:27 Labs: RBC 3.27 X10^6/uL (4.5-5.9) L 01/17/25 06:06 Hgb 11.8 g/dL (13.5-17.5) L 01/17/25 06:06 Hct 33.3 % (41-53) L 01/17/25 06:06 Creatinine 0.80 mg/dL (0.66-1.25) 01/17/25 06:06 Lactate 1.6 mmol/L (0.7-2.1) 01/16/25 10:35 NT-Pro-B Natriuret Pep 2170 pg/mL (<125) H 01/16/25 11:47 Monitoring/Evaluations: f/u in afternoon or tomorrow morning Electronically Signed by: Kelly Ron 01/17/25 11:03 Clinical Dietitian [address] [address]
[2025-01-17] MEDS: CYCLOBENZAPRINE 10 MG TABLET PO (11:30)
--- NOTE | 2025-01-17 12:14 | CM.DANOTE ---
Initial DCP Assessment Note Pt is a 74 yo male, resident of [place], presents after a fall at home and is admitted for management of acute rhabdo, possible sepsis, cardiac work up. PCP: Dilshad Barton and Julieth Frias listed in chart Payer: Britany [facility] Reviewed chart, pt discussed in multidisciplinary rounds this morning. Patient may benefit from SNF according to therapy input; patient below functional baseline. Met w/patient who reports living alone, independently in [place]. Patient says he has a neighbor that can help him if things get really desperate. Discussed therapy recommendation for short SNF stay and patient declines. Discussed home health services and patient says he will consider. Discussed life alert options including the idea of an iwatch in case something like this happens again, patient would have a way to contact someone/EMS etc Plan: Patient plans to return home at DC and would be a good candidate for home health if agreeable. Friend to transport. CM team will plan to follow clinical course closely in case any DC needs or concerns arise. LISSY Whittaker Discharge Planning/Care Management CM Discharge Assessment Start: 01/16/25 15:16 Freq: Status: Active Protocol: Document 01/17/25 11:40 [facility] (Rec: 01/17/25 12:14 [facility] Desktop) Discharge Planning Assessment Assigned Discharge LISSY Carias Shoe Salesperson ROSARIO/Assigned Magdaleno Grubbs Designee Name Contact Information [phone] Advance Directives? No History Provided By Patient,Medical Record Prior Living House Arrangements Household Members none Type of Drives own vehicle transporation used prior to admit Independent with ADL Yes 's Is patient alert and Yes oriented? Comment Has ramp and high toilet seat. Patient/Family Home with Home Health Preference Comment Patient has not agreed to HH but is considering. Patient would be a good candidate. Barriers to Yes Discharge Comment Patient is much weaker than usual but is refusing SNF at this time. Discharge Plan Home Transportation Friend Arrangement Referrals Initiated None needed Additional Comment Consider HH is patient agrees.
[2025-01-17] MEDS: HYDROCODONE/ACET 5/325 TABLET 2 TAB PO ×2 (13:10→20:48)
[2025-01-17] MEDS: LIDOCAINE 5% PATCH 1 EACH TOP (14:48)
[2025-01-17] MEDS: REMOVE LIDOCAINE PATCH 1 EACH TOP (21:23)
[2025-01-18] VITALS (11 sets, daily range): BP systolic 129–140; BP diastolic 75–90; PULSE 84–96; RESP 17–21; TEMP 36.6–37.5; O2SAT 93–97
[2025-01-18] MEDS: HYDROCODONE/ACET 5/325 TABLET 1 TAB PO (01:48)
[2025-01-18] MEDS: CYCLOBENZAPRINE 10 MG TABLET PO (01:49)
[2025-01-18 06:05] LABS: Add Manual Diff / Slide Review NO; Hematocrit 33.0 % (41-53); Hemoglobin 11.5 g/dL (13.5-17.5); Lymphocytes Absolute Auto 1500 /uL (1100-4500); Mean Corpuscular HGB Conc 35.0 % (30-36); Mean Corpuscular Hemoglobin 36.3 PG (26-34); Mean Corpuscular Volume 103.7 fL (80-100); Platelet Count 127 X10^3/uL (150-400)
[2025-01-18 06:11] LABS: Alanine Aminotransferase 72 IU/L (<50); Albumin 3.7 g/dL (3.5-5.0); Albumin Globulin Ratio 1.2 (1.0-2.8); Alkaline Phosphatase 60 U/L (38-126); Blood Urea Nitrogen 18 mg/dL (9-20); Calcium 8.5 mg/dL (8.4-10.2); Carbon Dioxide 25 mmol/L (22-32); Chloride 104 mmol/L (98-107); Estimated Glomerular Filt Rate > 60 mL/min (>60); Globulin 3.2 g/dL (1.7-4.1); Glucose 87 mg/dL (70-99); HEMOLYSIS < 15 (0-50); Magnesium 1.8 mg/dL (1.6-2.3); Potassium 3.7 mmol/L (3.4-5.1); Sodium 136 mmol/L (137-145); Total Protein 6.9 g/dL (6.3-8.2)
[2025-01-18] MEDS: HYDROCODONE/ACET 5/325 TABLET 2 TAB PO ×3 (06:24→20:15)
[2025-01-18] MEDS: LIDOCAINE 5% PATCH 1 EACH TOP (08:29)
[2025-01-18] MEDS: ENOXAPARIN 40 MG/0.4 ML SYRINGE SUBCUT (08:30)
[2025-01-18] MEDS: SODIUM CHLORIDE 0.9% FLUSH 10 ML IV ×2 (08:30→20:15)
[2025-01-18] MEDS: HYDROMORPHONE 0.5 MG INJ IV (08:30)
--- NOTE | 2025-01-18 09:53 | DIET.PN1 ---
Dietary Progress Note Assessment: Met with pt at bedside reports normal appetite and no appetite changes before fall, normal 3 meals per day. No recent significant weight loss. Pt reports not having BM since Tuesday. RN aware, Miralax ordered yesterday for 17 g daily. Reports has also tried prune juice. Discussed other fibrous food and adequate hydration. Monitoring PO intakes and for BM. Ht: 190.5 cm Wt: 144.5 kg BMI: 38.9 Last BM: 01/16/25 (01/16/25 17:02) MNA: 11 Tone Score: 19 Diet: 01/16/25 Dinner General (Regular) Diet Diet Modifications: Nutrition Percent Meal Consumed 100% 01/17/25 18:02 Percent Meal Consumed 100% 01/17/25 09:07 Percent Meal Consumed 100% 01/16/25 18:27 Labs: RBC 3.18 X10^6/uL (4.5-5.9) L 01/18/25 05:20 Hgb 11.5 g/dL (13.5-17.5) L 01/18/25 05:20 Hct 33.0 % (41-53) L 01/18/25 05:20 Creatinine 0.86 mg/dL (0.66-1.25) 01/18/25 05:20 Lactate 1.6 mmol/L (0.7-2.1) 01/16/25 10:35 NT-Pro-B Natriuret Pep 2170 pg/mL (<125) H 01/16/25 11:47 No nutritional interventions at this time. Electronically Signed by: Kelly Ron 01/18/25 09:53 Clinical Dietitian [address] [id number]
[2025-01-18] MEDS: cefTRIAXone 2,000 MG in SODIUM CHLORIDE 0.9% 100 ML 200 MG IV (10:09)
--- NOTE | 2025-01-18 10:45 | OT.IP.TRT ---
Current Diagnoses Sepsis, unspecified organism (01/16/25) Occupational Therapy Treatment Note M2 OT-IP Current Condition Start: 01/17/25 10:23 Freq: Status: Active Protocol: Document 01/17/25 10:24 [facility] (Rec: 01/17/25 10:54 [facility] Desktop) Occupational Therapy Current Condition Current Condition Evaluation Date 01/17/25 Treatment Diagnosis Sepsis, acute traumatic rhabodo due to fall Diagnosis Onset Date 01/16/25 M3 OT- IP Subjective and Pain Start: 01/17/25 10:23 Freq: Status: Active Protocol: Document 01/18/25 11:18 [facility] (Rec: 01/18/25 11:31 [facility] Desktop) OT- Subjective Occupational Therapy Visit Type Type Treatment Note Visit Start Time 09:45 Visit Stop Time 10:45 Occupational Therapy Visit Comments Patient Comments Pt agreed to get to the BSC and sponge off. Patient/Caregiver TO go home. Goals OT Pain Assessment Pain When Pain Assessed At Rest Pain Present Pain Present Pain Reported Location back/legs Intensity 7 Scale Used Numeric (0 - 10) M4 OT- IP ADL's Start: 01/17/25 10:23 Freq: Status: Active Protocol: Document 01/18/25 11:18 [facility] (Rec: 01/18/25 11:31 [facility] Desktop) OT ADL-Oral Care General Eval Oral Care Ability Independent Comments Oral Care Comments Pt able to rinse his mouth out with mouth wash. OT ADL-Dressing Comments OT Dressing Comments Pt insisting on not wearing his shoes and insisting on going barefoot at this time. Pt would benefit from a welfare manager and extra wide sock aid. OT ADL-Toileting General Evaluation Toileting Ability Minimal Assistance Areas Needing Perform Perineal Hygiene Assistance Comments OT Toileting VICK for completeness to wipe while pt standing. Pt Comments states had a bidet before and agrees would benefit from getting one again or use of toilet paper aid. OT ADL-Bathing Bathing Type Bathing Type Sponge Bath General Evaluation Bathing Ability Moderate Assistance Areas Needing Wash/Dry Back,Wash/Dry Perineal Area Assistance Comments OT Bathing Comments Pt able to sponge off while seated on the BSC. M5 OT- IP IADL's Start: 01/17/25 10:23 Freq: Status: Active Protocol: Document 01/17/25 10:24 [facility] (Rec: 01/17/25 10:54 [facility] Desktop) OT-Instrumental Activities of Daily Living Home Safety Awareness Awareness of Need Good Awareness for Assistance at Home Ability to Problem Able to Problem Solve Solve Emergency Situations Medication Management Medication Pt uses a pill organizer. Management Comments Money Management Money Management Pt does his own. Comments Meal Preparation Meal Preparation Pt may benefit from assist. Comments Hydraulic Elevator Constructor Hydraulic Elevator Constructor Pt may benefit from assist. Comments M6 OT- IP Functional Cognition Start: 01/17/25 10:23 Freq: Status: Active Protocol: Document 01/18/25 11:18 [facility] (Rec: 01/18/25 11:31 [facility] Desktop) Cognitive Factors Limiting Selfcare Function Cognitive Comments Cognitive Assessment VC for safety awareness to push up from the bed or BSC Comments to stand to the 4ww or FWW. M7 OT- IP Mobility and Balance Start: 01/17/25 10:23 Freq: Status: Active Protocol: Document 01/18/25 11:18 [facility] (Rec: 01/18/25 11:31 [facility] Desktop) OT- Bed Mobility Assessment Supine to Sit Supine to Sit Assist Minimal Assistance Sit to Supine Sit to Supine Assist Standby Assistance OT-Transfer Assessment Sit to and From Stand Sit to and from Standby Assistance,Contact Guard Assistance Stand Transfers Transfer Ability Standby Assistance Technique Transfer Destination Bed,Bedside Commode Transfer Technique Stand Step Pivot Devices Transfer Assistive Gait Belt,Front Wheeled Walker,4 Wheeled Walker Devices Comments Mobility Comments Pt mush steadier on his feet when up. Pt needing CGA to stand from lower surfaces. OT- Balance Assessment Sitting Balance and Reactions Static Sitting Normal Balance Ability Dynamic Sitting Good Balance Ability Standing Balance and Reactions Static Standing Good Balance Ability Dynamic Standing Fair Balance Ability Comments Other Balance Tests/ Pt able is steadier on his feet today and able to try Deviations/Treatment 4ww versus FWW and pt feels better using the FWW. Pt : also states does not feel he needs to get a bariatric FWW. M8 OT- IP Objective Assessments Start: 01/17/25 10:23 Freq: Status: Active Protocol: Document 01/17/25 10:24 [facility] (Rec: 01/17/25 10:54 [facility] Desktop) OT Gross Range of Motion Upper Extremity Range of Motion Assessment Bilaterally Impaired OT Strength Upper Extremity Strength Assessment Bilaterally Impaired Comments Strength Comments BUE shoulder 3-/5 , elbow to distal 5/5 Pt has history of rotator cuff injuries. Per pt states right one was fixed but did not heal properly and still has issues with the left one. M9 OT- IP Assessment and Plan Start: 01/17/25 10:23 Freq: Status: Active Protocol: Document 01/18/25 11:18 [facility] (Rec: 01/18/25 11:31 [facility] Desktop) OT Summary Assessment and Plan Potential Rehabilitation Good Potential Analytic Complexity Moderate at Evaluation Summary OT Impairments Range of Motion,Strength,Balance,Functional Mobility, Dressing,Toileting,Bathing,Toilet Transfers,Shower Transfers,Activity Tolerance Progress Towards Progressing Toward Goals Goals Assessment Summary Pt doing better today and not SOB. Pt complaining of back pain and also not being constipated, nursing aware . Pt able to participate in sponge bath while seated on the BSC. Pt agreed would benefit from BSC, bidet/ toilet paper aid, and possibly Life alert at home. Able to do gentle stretching for pt's back pt states does cupping and sees an accupuncturist. and In addition pt feels would benefit from assist at home but not sure if pt will follow through with the suggestion . Pt to go home with assist with home health when medically stable. Goals Self-Feeding Goal Independent Grooming Goal Independent Dressing Goal Independent Toileting Goal Independent Bathing Goal Independent Toilet Transfer Goal Independent Shower Transfer Goal Independent Days to Meet Goals 5 Frequency of Treatment Other frequency 5x/week Treatment Plan OT Treatment Plan ADL Training,Functional Mobility,Patient/Family Education,Discharge Planning Other Treatment [place] Making B Recommendations and Next Treatment Focus Discharge Recommendations OT Discharge Home vs SNF Recommendations Other Discharge Pt much closer to his baseline and therefore hopeful Recommendations to go home with assist and home health. Transportation Needs Private Vehicle at Discharge
--- NOTE | 2025-01-18 13:30 | P.PN_ITS ---
Subjective Subjective Interval history: S: He was weakness is improving. His left leg remains very red today, but is less swollen, and painful. No fevers overnight. Exam Vital Signs (past 8 hours): - 01/18/25 08:00 Temperature 97.9 F Pulse Rate 85 Respiratory Rate 20 Blood Pressure 129/90 Pulse Oximetry 93 Oxygen Flow Rate 0 Oxygen Delivery Method Room Air Oxygen Flow Rate 0 Narrative Exam Narrative: NAD, alert and oriented. Fluent speech. Lungs are clear, normal rate and effort. Heart is regular, no murmur gallop or rub. Abdomen is soft, non distended. Extremities: Left leg is swollen and remains quite red. This is more of a scarlet, her aspect are lower leg. This is consistent with a streptococcal cellulitis. Objective Labs 01/18/25 05:20 01/18/25 05:20 Labs: Laboratory Results - last 24 hr 01/18/25 05:20 WBC 7.1 RBC 3.18 L Hgb 11.5 L Hct 33.0 L MCV 103.7 H MCH 36.3 H MCHC 35.0 RDW 15.6 H Plt Count 127 L Neut % (Auto) 67.3 Lymph % (Auto) 20.8 L [place] % (Auto) 8.5 Eos % (Auto) 2.3 Baso % (Auto) 1.1 Neut # (Auto) 4700 Lymph # (Auto) 1500 [place] # (Auto) 600 Eos # (Auto) 200 Baso # (Auto) 100 Sodium 136 L Potassium 3.7 Chloride 104 Carbon Dioxide 25 BUN 18 Creatinine 0.86 Estimated GFR > 60 BUN/Creatinine Ratio 20.9 Glucose 87 Calcium 8.5 Magnesium 1.8 Total Bilirubin 0.8 AST 131 H ALT 72 H Alkaline Phosphatase 60 Total Protein 6.9 Albumin 3.7 Globulin 3.2 Albumin/Globulin Ratio 1.2 PFSH Medical History History of colon cancer BACILIO treated with BiPAP Surgical History 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 Rule out sepsis secondary to possible L leg cellulitis. Blood cultures remain negative. Improving, but not stable enough to be discharged today. Needs another night of IV antibiotics. - continue ceftriaxone for now 2. Acute atraumatic rhabdomyolysis, ground level fall. Imroved. 3. WALLACE, improved. 4. SVT and demand ischemia, improved. - initial troponin 0.6 improved to 0.5 on repeat - ECHO without WMA. 5. BACILIO, stable. - APAP at night. 6. Hypokalemia, improved. 7. HTN, stable. - continue home medications, hold home chlorthalidone for now given rhabdo and WALLACE on admit. PLAN: -continue IV antibiotics until January 19, anticipate discharge on January 19 if he continues to improve clinically. He will go home on oral antibiotics. Time-Based Coding :: [TOTAL MINUTES] spent with patient and on the chart (including review of chart, obtaining history, exam, reviewing outside data, placing orders, documenting exam and treatment plan, and counseling patient) on [DATE]. Quality VTE Deep Vein Thrombosis/Pulmonary Embolism Present on Admission: No
--- NOTE | 2025-01-18 15:04 | CM.DPNOTE ---
Addendum entered by LISSY Puentes 01/18/25 15:47: ADD: [email or web address] , included F2F, HH Order and clinical. Original Note: DCP Cont Reviewed chart. Patient discussed in multidisciplinary rounds. Blood cultures remain negative. Improving, but not stable enough to be discharged today. Needs another night of IV antibiotics. PEDRO PABLO 01/19. Plan remains discharge home w/with close outpatient follow up. Met w/patient to discuss HH, patient agreeable and has no HH preference. PCP- Julieth Frias is not up to date. Patient cannot remember the name of his PCP through the [place]. F2F completed with information on the chart; Dilshad Barton PA-C. Will send referral today to [facility]. CM team following closely for coordination efforts. Plan: Discharge home w/friend to transport, HH referral to [facility] done 01/18. Unsure the outcome of this referral as patient only has a PA-C listed as PCP AND insurances [facility] and [facility] may be barriers. BEATA
--- NOTE | 2025-01-18 15:57 | PT-IP ANOTE ---
01/18/2025 Pt declined all mobility and gait this visit. His nurse is aware of his pain. Changed his treatment plan due to change in functional status. M7 PT-IP Assessment and Plan Start: 01/17/25 16:32 Freq: NEEDED Status: Active Protocol: Document 01/18/25 15:49 DLM (Rec: 01/18/25 15:55 DLM Desktop) PT Summary Assessment and Plan Summary Impairments Pain,Bed Mobility,Transfers,Gait,Activity Tolerance Assessment Summary Jaime reports onset of new severe back spasms that he feels like is nerve pain. Pt will be resting quietly in bed then yells out in pain and tenses in bed. Adjusted the bed for his comfort which seemed to decrease the frequency of his spasms but not stop them. Offered to get pt up to recliner but he declined due to his pain. He is not safe to discharge home at this time since his pain is preventing functional mobility. Recommend SNF rehab at discharge. Will continue to assess for discharge planning as he is able to participate better in Physical Therapy. Pt lives alone and has very limited support of friends and neighbors. Goals Bed Mobility Goal Independent Transfer Goal Independent Gait Goal Independent,Front Wheel Walker Gait Distance 100 feet Days to Meet Goals 5 Frequency of Treatment Frequency Of Once a Day Treatment Treatment Plan Physical Therapy Bed Mobility Training,Transfer Training,Gait Training, Treatment Plan Therapeutic Exercise,Balance Retraining,Discharge Planning,Hot or Cold Pack,Neuromuscular Re-ed,Manual Therapy Precautions Other Precautions new onset severe back pain cellulitis left distal LE Recommendations To Nursing Amount of Assist 1 Person Assist Needed Discharge Recommendations PT Discharge SNF Rehab Recommendations Other Discharge ongoing assessment as he can participate more in Recommendations therapy Equipment Needed for he owns FWW and 4WW at home, he does not want a Home Before bariatric walker per pt report Discharge Transportation Needs Private Vehicle,Wheelchair/Cabulance at Discharge - PT assist 1
[2025-01-18] MEDS: REMOVE LIDOCAINE PATCH 1 EACH TOP (20:16)
[2025-01-19] VITALS (13 sets, daily range): BP systolic 125–145; BP diastolic 77–86; PULSE 88–101; RESP 18–21; TEMP 36.2–38.3; O2SAT 95–97
[2025-01-19] MEDS: ACETAMINOPHEN 325 MG TABLET 650 MG PO (00:46)
--- NOTE | 2025-01-19 05:09 | PC.NURSE ---
Dr. Tylor Squires was notified earlier with patient elevated temperature of 100.9, 97.9 after medicated with 650 mg. of Tylenol. Then when we rechecked his temp. it was elevated to 99.5. Will report to day RN & monitor.
[2025-01-19] MEDS: IBUPROFEN 400 MG TABLET PO (06:17)
[2025-01-19 06:20] LABS: Add Manual Diff / Slide Review NO; Hematocrit 34.4 % (41-53); Hemoglobin 11.9 g/dL (13.5-17.5); Lymphocytes Absolute Auto 1100 /uL (1100-4500); Mean Corpuscular HGB Conc 34.7 % (30-36); Mean Corpuscular Hemoglobin 35.9 PG (26-34); Mean Corpuscular Volume 103.6 fL (80-100); Platelet Count 130 X10^3/uL (150-400)
[2025-01-19 06:26] LABS: Alanine Aminotransferase 61 IU/L (<50); Albumin 3.7 g/dL (3.5-5.0); Albumin Globulin Ratio 1.2 (1.0-2.8); Alkaline Phosphatase 62 U/L (38-126); Blood Urea Nitrogen 16 mg/dL (9-20); Calcium 8.8 mg/dL (8.4-10.2); Carbon Dioxide 28 mmol/L (22-32); Chloride 101 mmol/L (98-107); Estimated Glomerular Filt Rate > 60 mL/min (>60); Globulin 3.2 g/dL (1.7-4.1); Glucose 98 mg/dL (70-99); HEMOLYSIS < 15 (0-50); Magnesium 1.6 mg/dL (1.6-2.3); Potassium 3.7 mmol/L (3.4-5.1); Sodium 136 mmol/L (137-145); Total Protein 6.9 g/dL (6.3-8.2)
[2025-01-19] MEDS: HYDROMORPHONE 0.5 MG INJ IV ×3 (07:11→14:09)
[2025-01-19] MEDS: SODIUM CHLORIDE 0.9% FLUSH 10 ML IV ×3 (07:12→21:42)
[2025-01-19] MEDS: cefTRIAXone 2,000 MG in SODIUM CHLORIDE 0.9% 100 ML 200 MG IV (09:11)
[2025-01-19] MEDS: ENOXAPARIN 40 MG/0.4 ML SYRINGE SUBCUT (09:11)
--- NOTE | 2025-01-19 10:35 | PT.IPTN ---
Current Diagnoses Sepsis, unspecified organism (01/16/25) Physical Therapy Treatment Note M2 PT-IP Current Condition Start: 01/17/25 16:32 Freq: NEEDED Status: Active Protocol: Document 01/17/25 08:20 LRN (Rec: 01/17/25 19:51 LRN Laptop) Physical Therapy Current Condition Current Condition Evaluation Date 01/17/25 Treatment Diagnosis SOB/SVT Onset Date 01/17/25 M3 PT-IP Subjective Start: 01/17/25 16:32 Freq: NEEDED Status: Active Protocol: Document 01/19/25 10:35 DLM (Rec: 01/19/25 10:47 DLM Desktop) Subjective Physical Therapy Visit Type Type Treatment Note Visit Start Time 10:15 Visit Stop Time 10:35 Notes 20 min 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 He has been able to get up and walk to the bathroom with nursing. He feels he is ready to go home today Patient Goals Discharge home Therapy Pain Assessment Pain When Pain Assessed After Treatment Pain Present Pain Present Pain Reported Location back/legs Intensity 5 Scale Used Numeric (0 - 10) Description Aching,Tender Pain Management Re-positioning Techniques M4 PT-IP Mobility and Gait Start: 01/17/25 16:32 Freq: NEEDED Status: Active Protocol: Document 01/19/25 10:35 DLM (Rec: 01/19/25 10:47 DLM Desktop) PT-Transfer Assessment Sit to and From Stand Sit to and from Independent,Use of Upper Extremities Stand Equipment Transfer Assistive Gait Belt,Front Wheeled Walker Device Transfers Transfer Destination Bed Transfer Technique Stand Step Pivot Transfer Ability Level of Assist Independent Comments Mobility Comments Pt up in recliner this visit with feet elevated Gait Assessment Gait Gait Assistance Independent Required: Distance (Feet) 110 Assistive Devices Assistive Device Gait Belt,Front Wheeled Walker Gait Deviations General Gait Pattern Flexed Trunk Comments Gait Comments Bariatric fWW being used, pt has shoes on. PT-Balance Assessment Sitting Balance and Reactions Static Sitting Good Balance Ability Dynamic Sitting Good Balance Ability Standing Balance and Reactions Static Standing Good Balance Ability Dynamic Standing Good Balance Ability Device Used FWW M5 PT-IP Objective Assessments Start: 01/17/25 16:32 Freq: NEEDED Status: Active Protocol: Document 01/17/25 08:20 LRN (Rec: 01/17/25 19:51 LRN Laptop) Gross Range of Motion Upper Extremity ROM Assessment Within Functional Limits Lower Extremity ROM Assessment Within Functional Limits Strength Upper Extremity Strength Assessment Within Functional Limits Lower Extremity Strength Assessment Within Functional Limits Sensation Assessment Sensation Gross Sensation WNL Other Assessments Other Other Assessments Start with pt semi-reclined: BP 127/90, HR 84. After activity (sitting on commode): 114/69, HR 91. M6 PT-IP Treatment Start: 01/17/25 16:32 Freq: NEEDED Status: Active Protocol: Document 01/19/25 10:35 DLM (Rec: 01/19/25 10:57 DLM Desktop) Physical Therapy Treatment Education Education Provided Safety Other Treatments Other Treatment discussed management of his back pain Performed M7 PT-IP Assessment and Plan Start: 01/17/25 16:32 Freq: NEEDED Status: Active Protocol: Document 01/19/25 10:35 DLM (Rec: 01/19/25 10:47 DLM Desktop) PT Summary Assessment and Plan Summary Progress Towards Goals Met Goals Assessment Summary Jaime is progressing well today. His back pain has improved an no longer prevents mobility. He was able to ambulate in the saleh with the FWW with good tolerance. He needed reminders to slow down and prevent flare-up of his back pain. Pt up in the recliner with his feet elevated. He has a lift recliner at home to use. Pt feels safe to discharge home today. No cardiac symptoms with activity. He has met his therapy goals. Recommend home when he is cleared medically. Anticipate discharge later today per rounds. Frequency of Treatment Frequency Of Discharge Treatment Precautions Other Precautions new onset back pain cellulitis left distal LE Recommendations To Nursing Amount of Assist Standby Assistance Needed Discharge Recommendations PT Discharge Home with Assistance Recommendations Other Discharge Has support of friends/neighbors per pt Recommendations Equipment Needed for he owns FWW and 4WW Home Before Discharge Transportation Needs Private Vehicle at Discharge - PT assist 1
--- NOTE | 2025-01-19 10:58 | PM.PN.1 ---
Subjective Subjective Interval history: S: The leg is little bit better, but it was still quite red and swollen. He has been trying to elevate. He would severe back pain yesterday which improved with IV Dilaudid. This is somewhat better today. He is not stable enough to be discharged. Exam Vital Signs (past 8 hours): - 01/19/25 03:07 01/19/25 03:50 01/19/25 06:17 Temperature 99.5 F 100.0 F H Pulse Rate 88 Respiratory Rate 21 Blood Pressure 143/86 H Pulse Oximetry 96 96 Oxygen Delivery Method Room Air CPAP Oxygen Flow Rate 0 01/19/25 06:44 01/19/25 06:59 01/19/25 08:00 Temperature 100 F H 98.9 F 97.1 F L Pulse Rate 101 H Respiratory Rate 20 Blood Pressure 125/77 Pulse Oximetry 97 Oxygen Delivery Method Oxygen Flow Rate 0 Oxygen Delivery Method Room Air,CPAP Oxygen Flow Rate 0 Narrative Exam Narrative: NAD, alert and oriented. Fluent speech. Lungs are clear, normal rate and effort. Heart is regular, no murmur gallop or rub. Abdomen is soft, non distended. Extremities: Left leg is swollen and red, somewhat improved from yesterday but still dramatically inflamed. Objective Labs 01/19/25 05:44 01/19/25 05:44 Labs: Laboratory Results - last 24 hr 01/19/25 05:44 WBC 11.2 H D RBC 3.32 L Hgb 11.9 L Hct 34.4 L MCV 103.6 H MCH 35.9 H MCHC 34.7 RDW 15.9 H Plt Count 130 L Neut % (Auto) 79.0 H Lymph % (Auto) 10.3 L [place] % (Auto) 8.1 Eos % (Auto) 1.9 L Baso % (Auto) 0.7 Neut # (Auto) 8800 H Lymph # (Auto) 1100 [place] # (Auto) 900 Eos # (Auto) 200 Baso # (Auto) 100 Sodium 136 L Potassium 3.7 Chloride 101 Carbon Dioxide 28 BUN 16 Creatinine 0.90 Estimated GFR > 60 BUN/Creatinine Ratio 17.8 Glucose 98 Calcium 8.8 Magnesium 1.6 Total Bilirubin 1.0 AST 74 H ALT 61 H Alkaline Phosphatase 62 Total Protein 6.9 Albumin 3.7 Globulin 3.2 Albumin/Globulin Ratio 1.2 PENDING SALE TO [facility] Medical History History of colon cancer BACILIO treated with BiPAP Surgical History 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 Left leg cellulitis, improving. He was still not stable enough to discharge on requires another night of IV antibiotics. We will continue to elevate the leg. 2. Acute atraumatic rhabdomyolysis, ground level fall. Imroved. 3. WALLACE, improved. 4. SVT and demand ischemia, improved. - initial troponin 0.6 improved to 0.5 on repeat - ECHO without WMA. 5. BACILIO, stable. - APAP at night. 6. Hypokalemia, improved. 7. HTN, stable. - continue home medications, hold home chlorthalidone for now given rhabdo and WALLACE on admit. 8. Acute on chronic lower back pain, new and improved. 9. 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 Plan: -continue IV antibiotics and leg elevation. -change IV Dilaudid to oral Dilaudid tablets. Stop oxycodone as he finds this to be ineffective. -anticipate possible discharge on January 20 of the leg is less swollen. Time-Based Coding :: [TOTAL MINUTES] spent with patient and on the chart (including review of chart, obtaining history, exam, reviewing outside data, placing orders, documenting exam and treatment plan, and counseling patient) on [DATE]. Quality VTE Deep Vein Thrombosis/Pulmonary Embolism Present on Admission: No
[2025-01-19] MEDS: HYDROMORPHONE 2 MG TABLET PO (12:48)
--- NOTE | 2025-01-19 14:40 | PC.NURSE ---
At the start of the shift the pt stated that the oxy and the flexeril did not do anything for his back. He asked me to rub out the muscle spasm in his back after I gave him Iv dilauded. He said that finally gave him some relief and was down to 6/10 pain shortly after. Pt was up in chair and walked to the bathroom. about 2 hours later the pt said that the pain was coming back. PO dilauded 2mg was given per orders and about an hour later the pt said it did nothing. IV dilauded was given and new orders placed for PO 4mg dilauded. The pt wanted the IV dilauded first, PO was not given. Pt is now sleeping.
[2025-01-19] MEDS: ACETAMINOPHEN 325 MG TABLET 1000 MG PO (14:57)
[2025-01-19] MEDS: CYCLOBENZAPRINE 10 MG TABLET PO ×2 (14:57→22:08)
[2025-01-19] MEDS: HYDROMORPHONE 2 MG TABLET 4 MG PO ×2 (15:54→22:10)
[2025-01-19] MEDS: HYDROMORPHONE 0.5 MG INJ 1 MG IV (18:01)
[2025-01-20] VITALS (7 sets, daily range): BP systolic 126–152; BP diastolic 55–92; PULSE 91–110; RESP 20–21; TEMP 36.8–37.2; O2SAT 92–96
[2025-01-20] MEDS: HYDROMORPHONE 2 MG TABLET 4 MG PO ×3 (04:29→15:00)
[2025-01-20] MEDS: CYCLOBENZAPRINE 10 MG TABLET PO ×2 (05:45→20:09)
[2025-01-20] MEDS: SODIUM CHLORIDE 0.9% FLUSH 10 ML IV ×2 (09:39→20:10)
[2025-01-20] MEDS: ENOXAPARIN 40 MG/0.4 ML SYRINGE SUBCUT (09:39)
[2025-01-20] MEDS: cefTRIAXone 2,000 MG in SODIUM CHLORIDE 0.9% 100 ML 200 MG IV (09:44)
[2025-01-20] MEDS: MORPHINE 2 MG/ML INJ IV ×2 (10:27→14:23)
--- NOTE | 2025-01-20 13:08 | PM.PN.1 ---
Subjective Subjective Interval history: S: The left leg is still swollen and red, somewhat better. He was having a lot of back pain. This is not typical for him. Exam Vital Signs (past 8 hours): - 01/20/25 08:00 01/20/25 12:00 Temperature 98.8 F 98.7 F Pulse Rate 92 H 110 H Respiratory Rate 20 21 Blood Pressure 152/92 H 149/86 H Pulse Oximetry 94 95 Oxygen Flow Rate 0 Oxygen Delivery Method Room Air Oxygen Flow Rate 0 Narrative Exam Narrative: NAD, alert and oriented. Fluent speech. Lungs are clear, normal rate and effort. Heart is regular, no murmur gallop or rub. Abdomen is soft, non distended. Extremities: Left leg is swollen red [id number]. It was mildly improved in terms of color from yesterday. 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 Left leg cellulitis, improving. He was still not stable enough to discharge on requires another night of IV antibiotics. We will continue to elevate the leg. The leg is improving, but it was not satisfactory to return home on oral antibiotics. 2. Acute atraumatic rhabdomyolysis, ground level fall. Resolved. 3. WALLACE, resolved. 4. SVT and demand ischemia, improved. - initial troponin 0.6 improved to 0.5 on repeat - ECHO without WMA. 5. BACILIO, stable. - APAP at night. 6. Hypokalemia, improved. 7. HTN, stable. - continue home medications, hold home chlorthalidone for now given rhabdo and WALLACE on admit. 8. Acute on chronic lower back pain, new and improved. 9. 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 10. Acute lower back pain likely related to the bed and chair. The plan will be to he was morphine IV as he was works better for him them Dilaudid and oral pain medication. Encourage movement and physical therapy will evaluate him. Plan: -continue IV antibiotics and leg elevation. -trial IV morphine, continue PO pain medications. Time-Based Coding :: [TOTAL MINUTES] spent with patient and on the chart (including review of chart, obtaining history, exam, reviewing outside data, placing orders, documenting exam and treatment plan, and counseling patient) on [DATE]. Quality VTE Deep Vein Thrombosis/Pulmonary Embolism Present on Admission: No
--- NOTE | 2025-01-20 15:36 | CM.DPC ---
DCP Cont: Per MD, pt making slow progress and switching to morphine today for better pain management and anticipates another 1-2 days and will need to follow closely to r/o SNF vs home with HH. LISSY Baxter
[2025-01-20] MEDS: MORPHINE 2 MG/ML INJ 4 MG IV (18:37)
[2025-01-20 20:05] LABS: MRSA (Nasal) PCR NOT DETECTED (Not Detect)
[2025-01-21] MEDS: HYDROMORPHONE 2 MG TABLET 4 MG PO ×4 (00:16→18:59)
[2025-01-21 00:21] VITALS: BP 147/88; PULSE 87; RESP 19; TEMP 35.8; O2SAT 95
[2025-01-21] MEDS: CYCLOBENZAPRINE 10 MG TABLET PO ×2 (05:21→15:14)
[2025-01-21 05:50] LABS: Hematocrit 31.1 % (41-53); Hemoglobin 11.0 g/dL (13.5-17.5); Mean Corpuscular HGB Conc 35.4 % (30-36); Mean Corpuscular Hemoglobin 36.5 PG (26-34); Mean Corpuscular Volume 103.1 fL (80-100); Platelet Count 164 X10^3/uL (150-400)
[2025-01-21 06:07] LABS: Blood Urea Nitrogen 16 mg/dL (9-20); Calcium 8.3 mg/dL (8.4-10.2); Carbon Dioxide 25 mmol/L (22-32); Chloride 99 mmol/L (98-107); Estimated Glomerular Filt Rate > 60 mL/min (>60); Glucose 104 mg/dL (70-99); HEMOLYSIS < 15 (0-50); Potassium 3.8 mmol/L (3.4-5.1); Sodium 131 mmol/L (137-145)
--- NOTE | 2025-01-21 07:36 | PC.NURSE ---
Pt had a shower this am and sat in his recliner chair after that with ice applied to his left leg which pt stated I can't feel the ice on my leg. pt legs is edematous +[address] Denny notified.
--- NOTE | 2025-01-21 07:39 | DI.US.S_ITS ---
PROCEDURE: US ARTERIAL DUPLEX LE BI INDICATIONS: Left leg numbness TECHNIQUE: Color and pulse Doppler interrogation was performed of both lower extremity arterial systems, with image documentation. COMPARISON: [facility], , LUMBAR TRANSFORAMINAL FLACA, 06/23/2021, 12:43. FINDINGS: Right lower extremity: Triphasic waveform throughout Common femoral artery: 105 cm/sec Deep femoral artery: 71 cm/sec Proximal superficial femoral artery: 96 cm/sec Mid superficial femoral artery: 81 cm/sec Distal superficial femoral artery: 44 cm/sec Popliteal artery: 31 cm/sec Posterior tibial artery: 58 cm/sec Anterior tibial artery/dorsalis pedis: 53 cm/sec Espinosa-scale imaging description: Unremarkable Left lower extremity: Triphasic waveforms throughout Common femoral artery: 111 cm/sec Deep femoral artery: 40 cm/sec Proximal superficial femoral artery: 90 cm/sec Mid superficial femoral artery: 107 cm/sec Distal superficial femoral artery: 58 cm/sec Popliteal artery: 56 cm/sec Posterior tibial artery: 69 cm/sec Anterior tibial artery/dorsalis pedis: 44 cm/sec Espinosa-scale imaging description: Unremarkable IMPRESSION: Trace atherosclerotic plaque in the right lower extremity without hemodynamically significant stenosis or waveform alteration throughout the exam Approved by: Krystian Chavez M.D. on 01/21/2025 at 12:40
--- NOTE | 2025-01-21 07:42 | P.PN_ITS ---
Subjective Subjective Interval history: Summary: He was admitted with left leg cellulitis. The leg had been slowly improving but has a very persistent redness and edema. He developed lower back pain, acute on chronic about 2 days ago. This has been quite limiting for progression of activity. Today, he stated he could not feel the ice bag on his foot. An ultrasound was obtained to rule out arterial disease and was fairly unremarkable. Despite several days of antibiotics, he really is not having clear improvement. He lives in [place], alone. WBC has improved from 20/2 0.4 on January 11-9.5 today. S: His pain is very positional in the lower back. And is radicular. He does have chronic low back pain and a history of lumbar surgery. His leg is still about the same in terms of discomfort and swelling with redness. Exam Vital Signs (past 8 hours): - 01/21/25 00:21 Temperature 96.4 F L Pulse Rate 87 Respiratory Rate 19 Blood Pressure 147/88 H Pulse Oximetry 95 Oxygen Flow Rate 0 Oxygen Delivery Method Room Air Oxygen Flow Rate 0 Narrative Exam Narrative: NAD, alert and oriented. Fluent speech. Lungs are clear, normal rate and effort. Heart is regular, no murmur gallop or rub. Abdomen is soft, non distended. Extremities: Left leg remains swollen and red from [id number] to just above the ankle. There was no obvious induration or fluctuance, the entire extremity is warm and boggy. The foot is also edematous and warm. Cap refill is normal. Pulses are difficult to appreciate given the amount of swelling. There was no footdrop. Objective Imaging Multiple studies:: Radiologist's impression: Chest abdomen pelvis CTA: 1. No evidence of acute aortic syndrome. The aorta is patent and normal in caliber throughout. Atherosclerotic vascular calcifications are present. 2. 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 Otherwise, no significant stenosis is seen. 3. Dilated main pulmonary artery, suggestive of pulmonary hypertension. 4. Areas of fat density with associated calcification in the left pelvis and adjacent to the ascending colon as described above, may represent areas of fat necrosis. These are stable compared to prior exam. Head CT: No acute intracranial pathology. C-spine CT: No displaced fracture or traumatic subluxation. Chest x-ray: Questionable widening of the mediastinum. Recommend chest CT to exclude acute aortic syndrome. Leg ultrasound: No findings of lower extremity deep venous thrombosis. Tibia fibia x-ray: No acute osseous abnormality. If pain persists with conservative management, consider repeat x-ray in 10-14 days or cross-sectional imaging. Echo: No acute osseous abnormality. If pain persists with conservative management, consider repeat x-ray in 10-14 days or cross-sectional imaging. 01/21 left leg arterial US: pending. Labs 01/21/25 05:10 01/21/25 05:10 Labs: Laboratory Results - last 24 hr 01/20/25 01/21/25 18:30 05:10 WBC 9.5 RBC 3.02 L Hgb 11.0 L Hct 31.1 L MCV 103.1 H MCH 36.5 H MCHC 35.4 RDW 15.8 H Plt Count 164 Sodium 131 L Potassium 3.8 Chloride 99 Carbon Dioxide 25 BUN 16 Creatinine 0.78 Estimated GFR > 60 BUN/Creatinine Ratio 20.5 Glucose 104 H Calcium 8.3 L Nasal Screen MRSA (PCR) Not detected [facility] Medical History History of colon cancer BACILIO treated with BiPAP Surgical History 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) H/O colectomy History of spinal fusion S/P epidural steroid injection Hx of laminectomy (2017) Social History household members: none Smoking Status: Former smoker alcohol intake: former Assessment & Plan Assessment & Plan narrative: 1. Left leg cellulitis, improving. He was still not stable enough to discharge on requires another night of IV antibiotics. We will continue to elevate the leg. The leg is improving, but it was not satisfactory to return home on oral antibiotics. 2. Acute atraumatic rhabdomyolysis, ground level fall. Resolved. 3. WALLACE, resolved. 4. SVT and demand ischemia, improved. - initial troponin 0.6 improved to 0.5 on repeat - ECHO without WMA. 5. BACILIO, stable. - APAP at night. 6. Hypokalemia, improved. 7. HTN, stable. - continue home medications, hold home chlorthalidone for now given rhabdo and WALLACE on admit. 8. Acute on chronic lower back pain, new and improved. 9. 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 10. Acute lower back pain likely related to the bed and chair. The plan will be to he was morphine IV as he was works better for him them Dilaudid and oral pain medication. Encourage movement and physical therapy will evaluate him. Plan: -continue IV antibiotics and leg elevation. -arterial ultrasound of left leg. Allowed any evidence of peripheral vascular disease. -left leg CT without contrast due to allergy to contrast. Rule out fluid collection. -PT consult. The patient was not stable enough to be discharged on requires at least 1 more night of hospital level care for IV antibiotics, and monitoring of his severe left leg infection. Time-Based Coding :: [TOTAL MINUTES] spent with patient and on the chart (including review of chart, obtaining history, exam, reviewing outside data, placing orders, documenting exam and treatment plan, and counseling patient) on [DATE]. Quality VTE Deep Vein Thrombosis/Pulmonary Embolism Present on Admission: No
[2025-01-21 08:04] VITALS: BP 142/74; PULSE 87; RESP 18; TEMP 36.5; O2SAT 93
[2025-01-21] MEDS: ENOXAPARIN 40 MG/0.4 ML SYRINGE SUBCUT ×2 (09:09→20:37)
[2025-01-21] MEDS: cefTRIAXone 2,000 MG in SODIUM CHLORIDE 0.9% 100 ML 200 MG IV (09:10)
--- NOTE | 2025-01-21 09:10 | OT.IP.TRT ---
Current Diagnoses Sepsis, unspecified organism (01/16/25) Occupational Therapy Treatment Note M2 OT-IP Current Condition Start: 01/17/25 10:23 Freq: Status: Active Protocol: Document 01/17/25 10:24 [facility] (Rec: 01/17/25 10:54 [facility] Desktop) Occupational Therapy Current Condition Current Condition Evaluation Date 01/17/25 Treatment Diagnosis Sepsis, acute traumatic rhabodo due to fall Diagnosis Onset Date 01/16/25 M3 OT- IP Subjective and Pain Start: 01/17/25 10:23 Freq: Status: Active Protocol: Document 01/21/25 09:34 [facility] (Rec: 01/21/25 09:46 [facility] Desktop) OT- Subjective Occupational Therapy Visit Type Type Treatment Note Visit Start Time 09:10 Visit Stop Time 09:34 Occupational Therapy Visit Comments Patient Comments Pt not wanting to get up as complaining of pain in his LLE, noted to be more intense in color, and swelling compared to last week when OT saw pt. Patient/Caregiver To go home. Goals OT Pain Assessment Pain When Pain Assessed At Rest Pain Present Pain Present Pain Reported M4 OT- IP ADL's Start: 01/17/25 10:23 Freq: Status: Active Protocol: Document 01/18/25 11:18 [facility] (Rec: 01/18/25 11:31 [facility] Desktop) OT ADL-Oral Care General Eval Oral Care Ability Independent Comments Oral Care Comments Pt able to rinse his mouth out with mouth wash. OT ADL-Dressing Comments OT Dressing Comments Pt insisting on not wearing his shoes and insisting on going barefoot at this time. Pt would benefit from a binding machine operator and extra wide sock aid. OT ADL-Toileting General Evaluation Toileting Ability Minimal Assistance Areas Needing Perform Perineal Hygiene Assistance Comments OT Toileting VICK for completeness to wipe while pt standing. Pt Comments states had a bidet before and agrees would benefit from getting one again or use of toilet paper aid. OT ADL-Bathing Bathing Type Bathing Type Sponge Bath General Evaluation Bathing Ability Moderate Assistance Areas Needing Wash/Dry Back,Wash/Dry Perineal Area Assistance Comments OT Bathing Comments Pt able to sponge off while seated on the BSC. M5 OT- IP IADL's Start: 01/17/25 10:23 Freq: Status: Active Protocol: Document 01/17/25 10:24 [facility] (Rec: 01/17/25 10:54 [facility] Desktop) OT-Instrumental Activities of Daily Living Home Safety Awareness Awareness of Need Good Awareness for Assistance at Home Ability to Problem Able to Problem Solve Solve Emergency Situations Medication Management Medication Pt uses a pill organizer. Management Comments Money Management Money Management Pt does his own. Comments Meal Preparation Meal Preparation Pt may benefit from assist. Comments Information Assistant Information Assistant Pt may benefit from assist. Comments M6 OT- IP Functional Cognition Start: 01/17/25 10:23 Freq: Status: Active Protocol: Document 01/21/25 09:34 [facility] (Rec: 01/21/25 09:46 [facility] Desktop) Cognitive Factors Limiting Selfcare Function Cognitive Ability Level of Alertness Alert Patient Orientation Name,Age,Birthday,Month,Date,Year,Day of Week,Place, Situation Attention Span Capable of Focused Attention,Capable of Sustained Ability Attention Ability to Follow Able to Follow Multi-Step Commands Commands Memory Description Short Term Impaired Cognitive Tests SLUMS Pt scored 26/30 which implies mild cognitive disorder, pt does feel that he is not thinking as well as he usually does as not feeling well and also complaining of a headache. M7 OT- IP Mobility and Balance Start: 01/17/25 10:23 Freq: Status: Active Protocol: Document 01/18/25 11:18 [facility] (Rec: 01/18/25 11:31 [facility] Desktop) OT- Bed Mobility Assessment Supine to Sit Supine to Sit Assist Minimal Assistance Sit to Supine Sit to Supine Assist Standby Assistance OT-Transfer Assessment Sit to and From Stand Sit to and from Standby Assistance,Contact Guard Assistance Stand Transfers Transfer Ability Standby Assistance Technique Transfer Destination Bed,Bedside Commode Transfer Technique Stand Step Pivot Devices Transfer Assistive Gait Belt,Front Wheeled Walker,4 Wheeled Walker Devices Comments Mobility Comments Pt mush steadier on his feet when up. Pt needing CGA to stand from lower surfaces. OT- Balance Assessment Sitting Balance and Reactions Static Sitting Normal Balance Ability Dynamic Sitting Good Balance Ability Standing Balance and Reactions Static Standing Good Balance Ability Dynamic Standing Fair Balance Ability Comments Other Balance Tests/ Pt able is steadier on his feet today and able to try Deviations/Treatment 4ww versus FWW and pt feels better using the FWW. Pt : also states does not feel he needs to get a bariatric FWW. M8 OT- IP Objective Assessments Start: 01/17/25 10:23 Freq: Status: Active Protocol: Document 01/17/25 10:24 [facility] (Rec: 01/17/25 10:54 [facility] Desktop) OT Gross Range of Motion Upper Extremity Range of Motion Assessment Bilaterally Impaired OT Strength Upper Extremity Strength Assessment Bilaterally Impaired Comments Strength Comments BUE shoulder 3-/5 , elbow to distal 5/5 Pt has history of rotator cuff injuries. Per pt states right one was fixed but did not heal properly and still has issues with the left one. M9 OT- IP Assessment and Plan Start: 01/17/25 10:23 Freq: Status: Active Protocol: Document 01/21/25 09:34 [facility] (Rec: 01/21/25 09:46 [facility] Desktop) OT Summary Assessment and Plan Potential Rehabilitation Good Potential Analytic Complexity Moderate at Evaluation Summary OT Impairments Range of Motion,Strength,Balance,Functional Mobility, Dressing,Toileting,Bathing,Toilet Transfers,Shower Transfers,Activity Tolerance Progress Towards Slow Progress due to Pain Goals Assessment Summary Pt main issues are medical needs and noted LLE more swollen and read than last week during OT session. Pt hopeful to go home when medically stable and needs- possibly may need SNF. Goals Self-Feeding Goal Independent Grooming Goal Independent Dressing Goal Independent Toileting Goal Independent Bathing Goal Independent Toilet Transfer Goal Independent Shower Transfer Goal Independent Days to Meet Goals 5 Frequency of Treatment Other frequency 5x/week Treatment Plan OT Treatment Plan ADL Training,Functional Mobility,Patient/Family Education,Discharge Planning Discharge Recommendations OT Discharge Home vs SNF Recommendations Transportation Needs Private Vehicle,Wheelchair/Cabulance at Discharge
[2025-01-21] MEDS: SODIUM CHLORIDE 0.9% FLUSH 10 ML IV ×2 (09:11→20:37)
--- NOTE | 2025-01-21 09:34 | OT.IP.TRT ---
Current Diagnoses Sepsis, unspecified organism (01/16/25) Occupational Therapy Treatment Note M2 OT-IP Current Condition Start: 01/17/25 10:23 Freq: Status: Active Protocol: Document 01/17/25 10:24 [facility] (Rec: 01/17/25 10:54 [facility] Desktop) Occupational Therapy Current Condition Current Condition Evaluation Date 01/17/25 Treatment Diagnosis Sepsis, acute traumatic rhabodo due to fall Diagnosis Onset Date 01/16/25 M3 OT- IP Subjective and Pain Start: 01/17/25 10:23 Freq: Status: Active Protocol: Document 01/21/25 09:34 [facility] (Rec: 01/21/25 09:46 [facility] Desktop) OT- Subjective Occupational Therapy Visit Type Type Treatment Note Visit Start Time 09:10 Visit Stop Time 09:34 Occupational Therapy Visit Comments Patient Comments Pt not wanting to get up as complaining of pain in his LLE, noted to be more intense in color, and swelling compared to last week when OT saw pt. Patient/Caregiver To go home. Goals OT Pain Assessment Pain When Pain Assessed At Rest Pain Present Pain Present Pain Reported M5 OT- IP IADL's Start: 01/17/25 10:23 Freq: Status: Active Protocol: Document 01/17/25 10:24 [facility] (Rec: 01/17/25 10:54 [facility] Desktop) OT-Instrumental Activities of Daily Living Home Safety Awareness Awareness of Need Good Awareness for Assistance at Home Ability to Problem Able to Problem Solve Solve Emergency Situations Medication Management Medication Pt uses a pill organizer. Management Comments Money Management Money Management Pt does his own. Comments Meal Preparation Meal Preparation Pt may benefit from assist. Comments Casting Carrier Casting Carrier Pt may benefit from assist. Comments M6 OT- IP Functional Cognition Start: 01/17/25 10:23 Freq: Status: Active Protocol: Document 01/21/25 09:34 [facility] (Rec: 01/21/25 09:46 [facility] Desktop) Cognitive Factors Limiting Selfcare Function Cognitive Ability Level of Alertness Alert Patient Orientation Name,Age,Birthday,Month,Date,Year,Day of Week,Place, Situation Attention Span Capable of Focused Attention,Capable of Sustained Ability Attention Ability to Follow Able to Follow Multi-Step Commands Commands Memory Description Short Term Impaired Cognitive Tests SLUMS Pt scored 26/30 which implies mild cognitive disorder, pt does feel that he is not thinking as well as he usually does as not feeling well and also complaining of a headache, nursing notified. M9 OT- IP Assessment and Plan Start: 01/17/25 10:23 Freq: Status: Active Protocol: Document 01/21/25 09:34 [facility] (Rec: 01/21/25 09:46 [facility] Desktop) OT Summary Assessment and Plan Potential Rehabilitation Good Potential Analytic Complexity Moderate at Evaluation Summary OT Impairments Range of Motion,Strength,Balance,Functional Mobility, Dressing,Toileting,Bathing,Toilet Transfers,Shower Transfers,Activity Tolerance Progress Towards Slow Progress due to Pain Goals Assessment Summary Pt main issues are medical needs and noted LLE more swollen and read than last week during OT session. Pt scored 26/30 on the SLUMS which implied mild cognitive disorder.Pt hopeful to go home when medically stable and needs- possibly may need SNF. Goals Self-Feeding Goal Independent Grooming Goal Independent Dressing Goal Independent Toileting Goal Independent Bathing Goal Independent Toilet Transfer Goal Independent Shower Transfer Goal Independent Days to Meet Goals 5 Frequency of Treatment Other frequency 5x/week Treatment Plan OT Treatment Plan ADL Training,Functional Mobility,Patient/Family Education,Discharge Planning Discharge Recommendations OT Discharge Home vs SNF Recommendations Transportation Needs Private Vehicle,Wheelchair/Cabulance at Discharge
--- NOTE | 2025-01-21 10:33 | DI.CT.S_ITS ---
PROCEDURE: CT LE LT W CON INDICATIONS: leg cellulitis and persistent pain Left lower leg TECHNIQUE: After the administration of intravenous contrast, 3 mm axial sections acquired of the left leg., with coronal and sagittal reformats. COMPARISON: [facility], CR, XR TIBIA FIBULA LT 2V, 01/16/2025, 13:12. FINDINGS: Image quality: Excellent. Bones: Status post total knee arthroplasty, in near anatomic alignment. Multiple heterotopic ossification about the lateral aspect of the patella, representing prior injury. Multifocal moderate degenerative changes of the midfoot. No acute fracture or dislocation. No periosteal thickening or erosion to suggest osteomyelitis. Soft tissues: No significant knee effusion. Subcutaneous edema, extending from the knee, to the ankle, and to the dorsal midfoot, partially visualized in the foot. No drainable fluid collection. No soft tissue air to suggest necrotizing fasciitis. Moderate fatty atrophy of the anterior compartment of the leg. IMPRESSION: 1. Findings suggestive of cellulitis of the left leg, without associated osteomyelitis, drainable fluid collection, or soft tissue air to suggest necrotizing fasciitis. 2. Status post total left knee arthroplasty. Dictated by: Lisette Paul M.D. on 01/21/2025 at 11:17 Approved by: Lisette Paul M.D. on 01/21/2025 at 11:26
--- NOTE | 2025-01-21 10:44 | CM.DPC ---
DCP COnt: Per MD, pt's cellulitis does not appear to be improving as anticipated and getting additional CT of his leg to r/o any further medical conditions. PT had signed off on pt Tuesday as he was appearing close to baseline but per MD and RN pt with increased back pain and ambulation limitations through the weekend and PT/OT re-ordered for today to r/o possible need for SNF rather than home. If SNF recommended, would need [employer] auth. LISSY Baxter
--- NOTE | 2025-01-21 11:56 | PT-IP ANOTE ---
Reviewed chart and verified history with patient, he states he would like to eat lunch first; confirmed back pain is worse today than 2 days ago when d/basilia off PT caseload. Offered to help him up to the chair in his room for lunch but he declined, will check back in the afternoon as able.
[2025-01-21] MEDS: VANCOMYCIN 1,500 MG/300 ML PIGGYBACK 200 MG IV (13:48)
[2025-01-21 16:00] VITALS: BP 137/78; PULSE 86; RESP 19; TEMP 36.9; O2SAT 94
[2025-01-21 20:34] VITALS: BP 156/96; PULSE 87; RESP 20; TEMP 36.4; O2SAT 95
[2025-01-21] MEDS: REMOVE LIDOCAINE PATCH 1 EACH TOP (20:37)
[2025-01-21] MEDS: MORPHINE 2 MG/ML INJ 4 MG IV (20:38)
--- NOTE | 2025-01-21 20:48 | RT ---
2033 - Pt placed on hospital CPAP unit at this time, default settings. Medium sized mask being used. Pt on Continuous pulse ox. Tolerating well.
[2025-01-22] MEDS: VANCOMYCIN 1,500 MG/300 ML PIGGYBACK 200 MG IV ×2 (00:36→12:49)
[2025-01-22] MEDS: SODIUM CHLORIDE 0.9% FLUSH 10 ML IV ×2 (00:36→23:10)
[2025-01-22] MEDS: HYDROMORPHONE 2 MG TABLET 4 MG PO ×7 (00:43→23:10)
--- NOTE | 2025-01-22 01:33 | PC.NURSE ---
Addendum entered by Sudha Longoria R.N. 01/22/25 01:40: Has edema in bilateral LE L>R. Erythema is brighter red, warm to touch and more swollen than when last seen by this RN last Tuesday. Original Note: Patient is alert and oriented. Breath sounds CTA with RA sat of 95%; using CPAP at night for sleep. HRR but BP elevated at 156/96 and has been intermittently high. Denied nausea. BT present and abdomen is soft. Voiding frequently in small amounts so bladder scan done and found to have urinary retention w/scan of 676cc so in/out catheterization performed with return of 650cc clear, yellow urine (per patient he intermittently self caths at home for retention). Is able to turn himself w/minimal assist but staff help him to turn and position pillows q2h. When out of bed reportedly requires walker and 1 assist (gait not assessed at this time). Has complained of back and leg pain so has been medicated with IV Morphine as well as po Dilaudid. Fall risk score is high and bed alarm is activated.
[2025-01-22 04:10] VITALS: BP 128/93; PULSE 79; RESP 20; TEMP 35.9; O2SAT 96
[2025-01-22 04:57] LABS: Hematocrit 33.0 % (41-53); Hemoglobin 11.2 g/dL (13.5-17.5); Mean Corpuscular HGB Conc 34.0 % (30-36); Mean Corpuscular Hemoglobin 35.3 PG (26-34); Mean Corpuscular Volume 103.6 fL (80-100); Platelet Count 192 X10^3/uL (150-400)
[2025-01-22 05:38] LABS: Blood Urea Nitrogen 14 mg/dL (9-20); Calcium 8.4 mg/dL (8.4-10.2); Carbon Dioxide 25 mmol/L (22-32); Chloride 98 mmol/L (98-107); Estimated Glomerular Filt Rate > 60 mL/min (>60); Glucose 96 mg/dL (70-99); HEMOLYSIS < 15 (0-50); Potassium 4.2 mmol/L (3.4-5.1); Sodium 131 mmol/L (137-145)
[2025-01-22 08:09] VITALS: BP 152/92; PULSE 73; RESP 20; TEMP 36.4; O2SAT 94
--- NOTE | 2025-01-22 08:19 | PM.PN.1 ---
Subjective Subjective Date Patient Seen: 01/22/25 Interval history: The blood pressure is 152/92. The white blood count is 6.4 with a hemoglobin of 11.2 in an MCV of 103.6. The sodium is 131 with an otherwise normal BMP. He complains about pain in his legs and feet. There is a small blister on the ball of the left foot. We will do an x-ray of the foot since this area is not well covered in the CT scan. He has apparently been intermittently self catheterizing at home when he does not feel like he empties adequately so the finasteride and tamsulosin will be resumed. We will also resume his amlodipine and losartan for the blood pressure today. Exam Vital Signs (past 8 hours): - 01/22/25 04:10 01/22/25 08:09 Temperature 96.6 F L 97.6 F Pulse Rate 79 73 Respiratory Rate 20 20 Blood Pressure 128/93 H 152/92 H Pulse Oximetry 96 94 Oxygen Flow Rate 0 0 Oxygen Delivery Method Room Air Oxygen Flow Rate 0 Narrative Exam Narrative: Alert and orient x3. No apparent distress. Heart is regular rate and rhythm without murmur Lungs are clear to auscultation bilaterally Left lower leg has swelling and redness. There is a dry blister type ulcer on the bottom of the ball of the left foot. Objective Labs 01/22/25 04:40 01/22/25 04:40 Labs: Laboratory Results - last 24 hr 01/22/25 04:40 WBC 6.4 RBC 3.19 L Hgb 11.2 L Hct 33.0 L MCV 103.6 H MCH 35.3 H MCHC 34.0 RDW 15.5 H Plt Count 192 Sodium 131 L Potassium 4.2 Chloride 98 Carbon Dioxide 25 BUN 14 Creatinine 0.76 Estimated GFR > 60 BUN/Creatinine Ratio 18.4 Glucose 96 Calcium 8.4 PFSH Medical History History of colon cancer BACILIO treated with BiPAP Surgical History 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 Left leg cellulitis, improving. He is not stable enough to discharge and requires another night of IV antibiotics. We will continue to elevate the leg. The leg is improving, but it was not satisfactory to return home on oral antibiotics. 2. Acute atraumatic rhabdomyolysis, ground level fall. Resolved. 3. WALLACE, resolved. 4. SVT and demand ischemia, improved. - initial troponin 0.6 improved to 0.5 on repeat - ECHO without WMA. 5. BACILIO, stable. - APAP at night. 6. Hypokalemia/Hyponatremia, improved. 7. HTN, stable. - continue home medications, hold home chlorthalidone for now given rhabdo and WALLACE on admit. 8. Acute on chronic lower back pain, new and improved. 9. 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 10. Acute lower back pain likely related to the bed and chair. Has been using morphine IV as it works better for him than Dilaudid and oral pain medication. Encourage movement and physical therapy will evaluate him. Plan: -continue IV antibiotics and leg elevation. (Vanco added after CT on 01/21) -arterial ultrasound of left leg without any evidence of peripheral vascular disease. -left leg CT negative, Do left foot xray. -Do Left leg venous doppler if D-dimer is elevated. -PT consult. -resume losartan and amlodipine -resume finasteride and tamsulosin The patient was not stable enough to be discharged on requires at least 1 more night of hospital level care for IV antibiotics, and monitoring of his severe left leg infection. Time-Based Coding :: [TOTAL MINUTES] spent with patient and on the chart (including review of chart, obtaining history, exam, reviewing outside data, placing orders, documenting exam and treatment plan, and counseling patient) on [DATE]. Quality VTE Deep Vein Thrombosis/Pulmonary Embolism Present on Admission: No
[2025-01-22] MEDS: ENOXAPARIN 40 MG/0.4 ML SYRINGE SUBCUT ×2 (08:29→20:19)
[2025-01-22] MEDS: CYCLOBENZAPRINE 10 MG TABLET PO ×2 (08:30→17:10)
[2025-01-22] MEDS: ACETAMINOPHEN 325 MG TABLET 1000 MG PO ×2 (08:30→17:09)
[2025-01-22] MEDS: LIDOCAINE 5% PATCH 1 EACH TOP ×2 (08:31→21:40)
[2025-01-22] MEDS: cefTRIAXone 2,000 MG in SODIUM CHLORIDE 0.9% 100 ML 200 MG IV (10:33)
--- NOTE | 2025-01-22 11:08 | OT.IP.TRT ---
Current Diagnoses Sepsis, unspecified organism (01/16/25) Occupational Therapy Treatment Note M2 OT-IP Current Condition Start: 01/17/25 10:23 Freq: Status: Active Protocol: Document 01/17/25 10:24 [facility] (Rec: 01/17/25 10:54 [facility] Desktop) Occupational Therapy Current Condition Current Condition Evaluation Date 01/17/25 Treatment Diagnosis Sepsis, acute traumatic rhabodo due to fall Diagnosis Onset Date 01/16/25 M3 OT- IP Subjective and Pain Start: 01/17/25 10:23 Freq: Status: Active Protocol: Document 01/22/25 10:30 [facility] (Rec: 01/22/25 12:19 [facility] Desktop) OT- Subjective Occupational Therapy Visit Type Type Treatment Note Visit Start Time 10:30 Visit Stop Time 11:08 Occupational Therapy Visit Comments Patient Comments Pt states has to be changed as been leaking on himself but states unable to empty his bladder. Pt requesting to be cathed as he self caths himself at home. Notified nursing and hospitalist on his concerns. Patient/Caregiver To get better. Goals OT Pain Assessment Pain When Pain Assessed At Rest Pain Present Pain Present Pain Reported Location back/legs Intensity 7 Scale Used Numeric (0 - 10) M4 OT- IP ADL's Start: 01/17/25 10:23 Freq: Status: Active Protocol: Document 01/22/25 10:30 [facility] (Rec: 01/22/25 12:19 [facility] Desktop) OT [id number] General Evaluation Self-Feeding Ability Independent OT ADL-Grooming Comments OT Grooming Comments Not performed. OT ADL-Oral Care Comments Oral Care Comments Not observed. OT ADL-Dressing General Eval Lower Body Dressing Maximum Assistance Ability Comments OT Dressing Comments Assist to help get his brief up over his feet and hips. OT ADL-Toileting General Evaluation Toileting Ability Standby Assistance Comments OT Toileting Pt able to use container as a urinal whiled seated. Able to label the container (urinal) for pt. Comments OT ADL-Bathing Bathing Type Bathing Type Sponge Bath General Evaluation Bathing Ability Moderate Assistance Areas Needing Wash/Dry Back Assistance Comments OT Bathing Comments Pt able to wash his chest and perineal areas while seated. M5 OT- IP IADL's Start: 01/17/25 10:23 Freq: Status: Active Protocol: Document 01/17/25 10:24 [facility] (Rec: 01/17/25 10:54 [facility] Desktop) OT-Instrumental Activities of Daily Living Home Safety Awareness Awareness of Need Good Awareness for Assistance at Home Ability to Problem Able to Problem Solve Solve Emergency Situations Medication Management Medication Pt uses a pill organizer. Management Comments Money Management Money Management Pt does his own. Comments Meal Preparation Meal Preparation Pt may benefit from assist. Comments Knowledge Management Advisor Knowledge Management Advisor Pt may benefit from assist. Comments M6 OT- IP Functional Cognition Start: 01/17/25 10:23 Freq: Status: Active Protocol: Document 01/22/25 10:30 [facility] (Rec: 01/22/25 12:19 [facility] Desktop) Cognitive Factors Limiting Selfcare Function Cognitive Comments Cognitive Assessment Pt very frustrated that he has been leaking and not Comments been able to self cath- as he does at home. Pt admits that his legs buckle at home but has been doing so more often since coming in to the hospital this time. M7 OT- IP Mobility and Balance Start: 01/17/25 10:23 Freq: Status: Active Protocol: Document 01/22/25 10:30 [facility] (Rec: 01/22/25 12:19 [facility] Desktop) OT- Bed Mobility Assessment Supine to Sit Supine to Sit Assist Standby Assistance Sit to Supine Sit to Supine Assist Standby Assistance OT-Transfer Assessment Sit to and From Stand Sit to and from Standby Assistance,Contact Guard Assistance Stand Comments Mobility Comments Pt able to come to stand with CGA to the FWW and then when trying to pull up his brief buckling at his legs and dropping down to the recliner and OT able to slow down his decent. Able to notified hospitalist of sudden buckling and concerns of possibly coming from his back pain. OT- Balance Assessment Sitting Balance and Reactions Static Sitting Normal Balance Ability Dynamic Sitting Good Balance Ability Standing Balance and Reactions Static Standing Poor Balance Ability Dynamic Standing Poor Balance Ability Comments Other Balance Tests/ Pt able to stand to the FWW with CGA and then without Deviations/Treatment warning buckled and dropped to the recliner behind him. : OT able to slow down his decent marginally. Pt states that happens to him at home but has been more often since coming in to the hospital. M8 OT- IP Objective Assessments Start: 01/17/25 10:23 Freq: Status: Active Protocol: Document 01/17/25 10:24 [facility] (Rec: 01/17/25 10:54 [facility] Desktop) OT Gross Range of Motion Upper Extremity Range of Motion Assessment Bilaterally Impaired OT Strength Upper Extremity Strength Assessment Bilaterally Impaired Comments Strength Comments BUE shoulder 3-/5 , elbow to distal 5/5 Pt has history of rotator cuff injuries. Per pt states right one was fixed but did not heal properly and still has issues with the left one. M9 OT- IP Assessment and Plan Start: 01/17/25 10:23 Freq: Status: Active Protocol: Document 01/22/25 10:30 [facility] (Rec: 01/22/25 12:19 [facility] Desktop) OT Summary Assessment and Plan Potential Rehabilitation Good Potential Analytic Complexity Moderate at Evaluation Summary OT Impairments Pain,Range of Motion,Strength,Balance,Functional Mobility,Grooming,Dressing,Toileting,Bathing,Toilet Transfers Progress Towards Slow Progress due to Pain,Slow Progress due to Medical Goals Issues,Slow Progress due to Activity Tolerance Assessment Summary Pt having difficulty with static standing with FWW , while trying to do pericare need buckled at his legs and dropping down to the recliner with OT able to marginally slow his decent. Nursing and hospitalist notified. Pt states not aware and has any warning when his legs give out. At this time best for pt to go to skilled rehab when medically stable. Able to gentle stretching to pt's back while seated. Pt's LLE still swollen and red and complaining of back pain which is limiting his activity tolerance and independence with ADL and mobility needs at this time. Goals Self-Feeding Goal Independent Grooming Goal Independent Dressing Goal Independent Toileting Goal Independent Bathing Goal Independent Toilet Transfer Goal Independent Shower Transfer Goal Independent Days to Meet Goals 15 Frequency of Treatment Other frequency 5x/week Treatment Plan OT Treatment Plan ADL Training,Functional Mobility,Patient/Family Education,Discharge Planning Discharge Recommendations OT Discharge SNF Rehab Recommendations Transportation Needs Wheelchair/Cabulance at Discharge
--- NOTE | 2025-01-22 11:10 | PT.IPRE ---
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) Hx of laminectomy (2018) S/P epidural steroid injection Medical History (Last Reviewed 01/17/25 @ 07:38 by Ortega Denny MD) History of colon cancer BACILIO treated with BiPAP Physical Therapy Inpatient Evaluation/Re-Eval M1 PT/OT-IP Prior Functional Status Start: 01/17/25 10:23 Freq: NEEDED Status: Active Protocol: Document 01/17/25 10:24 [facility] (Rec: 01/17/25 10:54 [facility] Desktop) Medical Review Prior Functional Status Communication I Mobility and Gait Pt states furniture cruises in the house and use of SPC outside and prior used a 4ww outside. Activities of Daily Pt states able to do ADL and IADL needs with increased Living and IADL's time and drives. Pt also takes care of his cats. Prior Functional Pt states has had trouble with his left knee since his Level (Other details L TKA 03/18/23 and has been unsteady on his feet since ) then and pt states feels that his knee has not healed properly. Social History Household Members none Living Arrangements House Number of Floors ( One Floor Floors) Home Environment High Toilet,Tub/Shower,Ramp Home Equipment Front Wheel Walker,Four Wheel Walker,Straight Cane,Tub Transfer Bench,Hand Held Shower,Grab Bars Near Toilet, Grab Bars In Shower Additional Social Pt states in the past month has been SOB and fatigues History Comment quickly. M1 PT/OT-IP Prior Functional Status Start: 01/17/25 16:32 Freq: NEEDED Status: Active Protocol: Document 01/22/25 11:10 [facility] (Rec: 01/22/25 13:06 [facility] [id number]) Medical Review Prior Functional Status Medical History Yes Reviewed Communication able to make needs known; very [place] Mobility and Gait pt was modified independent with all mobilities and was able to ambulate without AD indoors but tends to furniture cruise; uses SPC for outdoor mobiltiy Activities of Daily Pt states able to do ADL and IADL needs with increased Living and IADL's time and drives. Pt also takes care of his cats. Prior Functional Pt states has had trouble with his left knee since his Level (Other details L TKA 03/18/23 and has been unsteady on his feet since ) then and pt states feels that his knee has not healed properly. Social History Household Members none Living Arrangements House Number of Floors ( One Floor Floors) Number of Stairs To ramp to enter Enter/Railing? Home Environment High Toilet,Walk in Shower,Ramp Home Equipment Four Wheel Walker,Shower Seat with Backrest,Hand Held Shower,Grab Bars Near Toilet,Grab Bars In Shower M2 PT-IP Current Condition Start: 01/17/25 16:32 Freq: NEEDED Status: Active Protocol: Document 01/22/25 11:10 [facility] (Rec: 01/22/25 13:06 AB [id number]) Physical Therapy Current Condition Current Condition Evaluation Date 01/22/25 Treatment Diagnosis LLE cellulitis; back pain; difficulty in walking Onset Date 01/16/25 M3 PT-IP Subjective Start: 01/17/25 16:32 Freq: NEEDED Status: Active Protocol: Document 01/22/25 11:10 [facility] (Rec: 01/22/25 13:06 AB [id number]) Subjective Physical Therapy Visit Type Type Initial Evaluation Visit Start Time 11:10 Visit Stop Time 11:30 Number of MOBILE APPLICATION ENGINEER Visits 0 Physical Therapy Visit Comments Patient Comments agreed to do PT Therapy Pain Assessment Pain When Pain Assessed During Mobility Pain Present Pain Present Pain Reported Location Back Intensity 8 Scale Used Numeric (0 - 10) Description Sharp,Shooting Pain Behaviors Facial Grimacing Pain Management Modification of Treatment,Re-positioning,Timing of Techniques Activity with Medications M4 PT-IP Mobility and Gait Start: 01/17/25 16:32 Freq: NEEDED Status: Active Protocol: Document 01/22/25 11:10 [facility] (Rec: 01/22/25 13:06 AB [id number]) PT-Transfer Assessment Sit to and From Stand Sit to and from Maximum Assistance,2 Person Assistance,Use of Upper Stand Extremities Comments Mobility Comments pt sitting on the chair. clarified PLOF and home set up. pt had a PT evaluation 01/17/25 and was doing well with mobility and PT d/c 01/19/25. pt was able to walk using FWW in the hallway independently on d/c day. pt with increase back pain and PT eval ordered again. Assessed mobility and pt was only able to stand using FWW for a few seconds and with (+) B knee buckling requiring max A x 2 and max cues. pt stated that he feels pain going up and down his spine into B LE and unable to control BLE. left pt on chair with call light and table next to pt. informed nursing staff that pt is a mechanical lift transfers at this time. Gait Assessment Comments Gait Comments unable at this time PT-Balance Assessment Sitting Balance and Reactions Static Sitting Good Balance Ability Dynamic Sitting Good Balance Ability Standing Balance and Reactions Static Standing Poor Balance Ability Dynamic Standing Poor Balance Ability Device Used FWW M5 PT-IP Objective Assessments Start: 01/17/25 16:32 Freq: NEEDED Status: Active Protocol: Document 01/22/25 11:10 [facility] (Rec: 01/22/25 13:06 [id number]) Orientation Orientation/Cognition Level of Alertness Alert Orientation Name,Place,Situation Language Function Hard of Hearing Ability Safety Awareness Decreased Safety Awareness Memory Description Short Term Impaired Gross Range of Motion Lower Extremity ROM Assessment Within Functional Limits Strength Lower Extremity Strength Hip 3+/5 Knee 3+/5 Muscle Tone Muscle Tone WNL Yes M6 PT-IP Treatment Start: 01/17/25 16:32 Freq: NEEDED Status: Active Protocol: Document 01/22/25 11:10 AB (Rec: 01/22/25 13:06 AB [id number]) Physical Therapy Treatment Education Education Provided Safety M7 PT-IP Assessment and Plan Start: 01/17/25 16:32 Freq: NEEDED Status: Active Protocol: Document 01/22/25 11:10 AB (Rec: 01/22/25 13:06 [id number]) PT Summary Assessment and Plan Potential Rehabilitation Fair Potential Status of Condition Evolving at Evaluation Summary Impairments Pain,ROM,Strength,Balance,Coordination,Sensation,Tone, Cognition,Bed Mobility,Transfers,Gait,Activity Tolerance Assessment Summary pt is a 74 y/o M who is admitted for LLE cellulitis, SVT, rhabdomyolysis. pt was evaluated by PT 01/17 and was doing well and able to ambulate independently and was dc'd from PT 01/19/25. pt with c/o increase back back and currently unable to tolerate standing with (+) B knee buckling and unable to stand long enough to transfer or ambulate. pt will require SNF rehab at this time. will continue to assess. Goals Bed Mobility Goal Independent Transfer Goal Independent,Front Wheeled Walker Gait Goal Independent,Front Wheel Walker Gait Distance 100 Days to Meet Goals 10 Frequency of Treatment Frequency Of Once a Day Treatment Treatment Plan Physical Therapy Bed Mobility Training,Transfer Training,Gait Training, Treatment Plan Therapeutic Exercise,Balance Retraining,Discharge Planning,Hot or Cold Pack,Neuromuscular Re-ed, Coordination Retraining,Manual Therapy Precautions Other Precautions falls Recommendations To Nursing Amount of Assist Mechanical Lift Needed Discharge Recommendations PT Discharge SNF Rehab Recommendations Transportation Needs Wheelchair/Cabulance,Stretcher/Ambulance at Discharge - PT assist 2
--- NOTE | 2025-01-22 14:47 | DI.RAD.S_ITS ---
PROCEDURE: XR FOOT LT 2V INDICATIONS: Foot ulcer TECHNIQUE: 2 views of the foot were acquired. COMPARISON: None. FINDINGS: Bones: No fractures or dislocations. No suspicious bony lesions. Severe midfoot osteoarthritis, with abnormal articulation of the 2nd tarsometatarsal joint. Plantar calcaneal enthesophyte. No bony erosion. Soft tissues: No tibiotalar joint effusion. Achilles tendon appears normal. Dorsal edema. IMPRESSION: No periosteal reaction or osteolysis to suspect osteomyelitis. If there remains a high clinical suspicion for osteomyelitis, consider MRI imaging with and without contrast. Charcot arthropathy of the midfoot. Abnormal 2nd Lisfranc joint space articulation. Dictated by: Shine Hair M.D. on 01/22/2025 at 15:21 Approved by: Shine Hair M.D. on 01/22/2025 at 15:23
[2025-01-22] MEDS: AMLODIPINE 5 MG TABLET 2.5 MG PO (15:12)
[2025-01-22 16:00] VITALS: BP 163/89; PULSE 82; RESP 20; TEMP 36.7; O2SAT 95
[2025-01-22 20:00] VITALS: BP 167/84; PULSE 86; RESP 17; TEMP 36.6; O2SAT 96
[2025-01-22] MEDS: ASPIRIN EC 81 MG TABLET PO (20:18)
[2025-01-22] MEDS: ATORVASTATIN 20 MG TABLET 5 MG PO (20:19)
[2025-01-22] MEDS: REMOVE LIDOCAINE PATCH 1 EACH TOP (20:21)
[2025-01-22 21:31] VITALS: BP 163/89; PULSE 82
[2025-01-22] MEDS: LOSARTAN 50 MG TABLET PO (21:31)
[2025-01-23] MEDS: MORPHINE 2 MG/ML INJ 4 MG IV (01:00)
[2025-01-23] MEDS: VANCOMYCIN 1,500 MG/300 ML PIGGYBACK 200 MG IV ×3 (01:42→20:15)
[2025-01-23 04:00] VITALS: BP 176/96; PULSE 77; RESP 16; TEMP 36.6; O2SAT 98
[2025-01-23] MEDS: HYDROMORPHONE 2 MG TABLET 4 MG PO (04:45)
[2025-01-23] MEDS: CYCLOBENZAPRINE 10 MG TABLET PO ×3 (04:46→22:03)
--- NOTE | 2025-01-23 06:06 | DI.US.S_ITS ---
PROCEDURE: US [facility] VENOUS LOW EXTREM LT INDICATIONS: EDEMA TECHNIQUE: Real-time imaging, as well as color and pulse Doppler interrogation, were performed of the lower extremity deep veins from the inguinal ligament to the popliteal fossa, with documentation of the visualized calf veins. COMPARISON: [facility], , [facility] VENOUS LOW EXTREM LT, 01/16/2025, 13:38. FINDINGS: The common femoral, femoral, popliteal, and the visualized calf veins are normally compressible, and free of intraluminal thrombus. Color and pulse Doppler demonstrate normal phasic intraluminal flow. There is normal augmentation response to distal compression maneuver. Calf veins are not well seen. Subcutaneous edema is present. IMPRESSION: No findings of lower extremity deep venous thrombosis. Dictated by: Carmelo Andres M.D. on 01/23/2025 at 8:23 Approved by: Carmelo Andres M.D. on 01/23/2025 at 8:24
--- NOTE | 2025-01-23 06:52 | PC.NURSE ---
Assumed care of pt at 01:30
--- NOTE | 2025-01-23 07:31 | P.PN_ITS ---
Subjective Subjective Date Patient Seen: 01/23/25 Interval history: His blood pressure is running high today at 176/96 so the chlorthalidone will be resumed. Yesterday the amlodipine and losartan were restarted but the amlodipine dose will be kept very low due to the edema present. We will also give him a small dose of IV Lasix today. Yesterday he had an episode where he was lowered to the floor and inadvertently strained his left shoulder. He says it feels like when he tore part of the rotator cuff before. He has at baseline very restricted range of motion of both shoulders. Today he is talking about increased low back pain with an electrical shooting sensation. A lumbar spine x-ray was done to rule out compression fracture and reveals a previous L2-L3 fixation/fusion. No compression fractures are seen. He had been noted to have a left foot ulcer, dried up and healed, but an x-ray was done as a precaution and while there was no osteomyelitis seen he was noted to have early Charcot joint changes and even an area of possible Lisfranc disruption. I reviewed the x-rays and do not see any significant fracture or Charcot joint myself. The cellulitis continues to improve very slowly, most notably with a mild lightening of the reddish discoloration today. The edema is likely contributing to that so we will treat that more aggressively today. The venous Doppler shows no DVT. He continues to show features of frustration and depression. Exam Vital Signs (past 8 hours): - 01/23/25 04:00 Temperature 97.8 F Pulse Rate 77 Respiratory Rate 16 Blood Pressure 176/96 H Pulse Oximetry 98 Oxygen Flow Rate 0 Oxygen Delivery Method Room Air Oxygen Flow Rate 0 Narrative Exam Narrative: Alert and oriented x3. No apparent distress but does make generally quite negative comments about his pace of improvement and current status. No left shoulder tenderness. Left ball of foot healed small skin ulcer. Heart is regular rate and rhythm without murmur Lungs are clear to auscultation bilaterally 1+ edema of the left ankle with lightening of the skin redness but no change in the distribution. Trace edema on the right ankle. Objective Labs 01/22/25 04:40 01/22/25 04:40 Labs: Laboratory Results - last 24 hr 01/22/25 01/23/25 17:54 00:34 D-Dimer 1743 H Vancomycin Trough 8.9 L PFSH Medical History History of colon cancer BACILIO treated with BiPAP Surgical History 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 Left leg cellulitis, improving. He is not stable enough to discharge and requires another day of IV antibiotics. Continue to elevate the leg. The redness is improving, but the distribution is not receding yet. Will add Lasix to the treatment approach today. 2. Acute atraumatic rhabdomyolysis, ground level fall. Resolved. 3. WALLACE, resolved. 4. SVT and demand ischemia, improved. - initial troponin 0.6 improved to 0.5 on repeat - ECHO without WMA. 5. BACILIO, stable. - APAP at night. 6. Hypokalemia/Hyponatremia, improved. 7. HTN, stable. - resumed Chlorthalidone, Losartan and Amlodipine 8. Acute on chronic lower back pain, new and improved. Xray on 01/23 without compression fractures. Likely related to the bed and chair. Has been using morphine IV as it works better for him than Dilaudid and oral pain medication. Encourage movement and physical therapy. 9. 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 10. Shoulder Strain. H/O rotator cuff injuries with severely restricted ROM at baseline. 11. Charcot arthropathy of the midfoot. Abnormal 2nd Lisfranc joint space articulation on xray. Consider ortho consultation. Plan: -continue IV antibiotics and leg elevation. (Vanco added after CT on 01/21) -arterial ultrasound of left leg without any evidence of peripheral vascular disease. -left leg CT negative, left foot xray negative for Osteomyelitis but read as C harcot arthropathy of the midfoot. Abnormal 2nd Lisfranc joint space articulation. -Left leg venous doppler negative for DVT on 01/23. -PT following -resumed chlorthalidone, losartan and amlodipine -resumed finasteride and tamsulosin -Lasix 20 mg IV X 1 on 01/23 for persisting left ankle swelling The patient requires at least 1-2 more nights of hospital level care for IV antibiotics, and monitoring of his severe left leg infection. Time-Based Coding :: [TOTAL MINUTES] spent with patient and on the chart (including review of chart, obtaining history, exam, reviewing outside data, placing orders, documenting exam and treatment plan, and counseling patient) on [DATE]. Quality VTE Deep Vein Thrombosis/Pulmonary Embolism Present on Admission: No
[2025-01-23 08:00] VITALS: BP 150/96; PULSE 82; RESP 20; TEMP 36.3; O2SAT 95
[2025-01-23 08:09] VITALS: BP 150/96; PULSE 82
[2025-01-23] MEDS: CHLORTHALIDONE 25 MG TABLET PO (08:09)
[2025-01-23] MEDS: FINASTERIDE 5 MG TABLET PO (08:09)
[2025-01-23] MEDS: LOSARTAN 50 MG TABLET PO ×2 (08:09→20:22)
[2025-01-23] MEDS: TAMSULOSIN 0.4 MG CAPSULE PO (08:09)
[2025-01-23] MEDS: AMLODIPINE 5 MG TABLET 2.5 MG PO (08:11)
[2025-01-23] MEDS: ASPIRIN EC 81 MG TABLET PO ×2 (08:12→20:21)
[2025-01-23] MEDS: ENOXAPARIN 40 MG/0.4 ML SYRINGE SUBCUT ×2 (08:12→20:20)
[2025-01-23] MEDS: SODIUM CHLORIDE 0.9% FLUSH 10 ML IV ×2 (08:13→20:29)
[2025-01-23 08:24] LABS: Hemoglobin A1C% w Est Avg Glu 5.7 % (4.0-6.0)
--- NOTE | 2025-01-23 08:41 | DI.RAD.S_ITS ---
PROCEDURE: XR LUMBAR SPINE 2-3V INDICATIONS: Compression fracture TECHNIQUE: 4 views of the lumbar spine were acquired. COMPARISON: [facility], CT, CT ANGIO ABD/PEL GI BLEED, 05/04/2024, 16:35. [facility], CT, CT ANGIO CHEST ABDOMEN PELVIS, 01/16/2025, 8:18. [facility], CR, XR LUMBAR SPINE 2-3V, 01/06/2022, 9:24. FINDINGS: Bones: 5 [id number] vertebrae are present. Patient is status post posterior fusion at L3-4 level with surgical hardware and intervertebral spacer in place. No evidence of hardware loosening or failure. There is straightening of normal lumbar lordosis. No acute vertebral body compression fractures. Chronic appearing mild anterior wedge compression deformity are seen at T11 through L1 levels. Spondylitic changes are noted throughout lower thoracic and lumbar spine. No suspicious bony lesions. Soft tissues: Overlying bowel gas pattern is normal. No suspicious soft tissue calcifications. IMPRESSION: 1. Post fusion changes at L3-4 level unchanged from prior study. No evidence of hardware loosening or failure. 2. Chronic appearing mild anterior wedge compression deformity at T11 through L1 levels unchanged from prior studies. No acute vertebral body compression fracture. Spondylitic changes throughout lumbar spine. Dictated by: Theo Bermeo M.D. on 01/23/2025 at 9:26 Approved by: Theo Bermeo M.D. on 01/23/2025 at 9:27
[2025-01-23] MEDS: FUROSEMIDE 20 MG/2 ML VIAL IV (09:28)
[2025-01-23] MEDS: cefTRIAXone 2,000 MG in SODIUM CHLORIDE 0.9% 100 ML 200 MG IV (09:28)
--- NOTE | 2025-01-23 10:12 | CM.DPC ---
DCP Cont. Reviewed EMR and team rounds for pt's medical status updates. Per Hospitalist, pt will need an additional day of diuresis before being medically stable for home d/c. Monitoring for any final needs.
[2025-01-23] MEDS: OXYCODONE IR 10 MG TABLET PO (10:49)
[2025-01-23] MEDS: ACETAMINOPHEN 325 MG TABLET 1000 MG PO (11:59)
--- NOTE | 2025-01-23 14:51 | OT.IPNOTE ---
Pt refusing to get up as in too much pain. To check on pt tomorrow.
[2025-01-23] MEDS: OXYCODONE IR 5 MG TABLET PO (14:53)
--- NOTE | 2025-01-23 15:31 | PT-IP ANOTE ---
checked on pt this afternoon and pt refused PT. stated that he does not want to aggravate his back pain. informed hospitalist.
[2025-01-23 16:00] VITALS: BP 155/92; PULSE 90; RESP 16; TEMP 36.4; O2SAT 96
[2025-01-23] MEDS: MORPHINE 4 MG/ML INJ IV ×2 (16:11→22:03)
[2025-01-23 20:00] VITALS: BP 124/76; PULSE 91; RESP 17; TEMP 37.6; O2SAT 96
[2025-01-23] MEDS: ATORVASTATIN 20 MG TABLET 5 MG PO (20:21)
[2025-01-23 20:22] VITALS: BP 124/76; PULSE 71
[2025-01-23] MEDS: REMOVE LIDOCAINE PATCH 1 EACH TOP (20:28)
[2025-01-24] VITALS: BP 152/85; PULSE 86; RESP 17; TEMP 36.8; O2SAT 94
[2025-01-24] MEDS: SODIUM CHLORIDE 0.9% FLUSH 10 ML IV ×3 (03:27→19:49)
[2025-01-24] MEDS: VANCOMYCIN 1,500 MG/300 ML PIGGYBACK 200 MG IV (03:55)
[2025-01-24] MEDS: HYDROMORPHONE 2 MG TABLET 4 MG PO ×2 (04:44→22:33)
[2025-01-24 05:04] VITALS: BP 143/80; PULSE 85; RESP 18; TEMP 37.2; O2SAT 94
[2025-01-24 05:56] LABS: Add Manual Diff / Slide Review NO; Hematocrit 33.4 % (41-53); Hemoglobin 11.6 g/dL (13.5-17.5); Lymphocytes Absolute Auto 1200 /uL (1100-4500); Mean Corpuscular HGB Conc 34.8 % (30-36); Mean Corpuscular Hemoglobin 35.7 PG (26-34); Mean Corpuscular Volume 102.6 fL (80-100); Platelet Count 230 X10^3/uL (150-400)
[2025-01-24 06:05] LABS: Blood Urea Nitrogen 15 mg/dL (9-20); Calcium 8.6 mg/dL (8.4-10.2); Carbon Dioxide 25 mmol/L (22-32); Chloride 98 mmol/L (98-107); Estimated Glomerular Filt Rate > 60 mL/min (>60); Glucose 112 mg/dL (70-99); HEMOLYSIS < 15 (0-50); Potassium 3.8 mmol/L (3.4-5.1); Sodium 130 mmol/L (137-145)
--- NOTE | 2025-01-24 08:44 | PM.PN.1 ---
Subjective Subjective Interval history: S: He was improving but is constipated. He does request an enema today. His left leg is still swollen and red but markedly improved. MRSA coverage was added 3 days ago. He was nares MRSA screen was negative. Exam Vital Signs (past 8 hours): - 01/24/25 05:04 Temperature 98.9 F Pulse Rate 85 Respiratory Rate 18 Blood Pressure 143/80 H Pulse Oximetry 94 Oxygen Flow Rate 0 Oxygen Delivery Method Room Air Oxygen Flow Rate 0 Narrative Exam Narrative: NAD, alert and oriented. Fluent speech. Lungs are clear, normal rate and effort. Heart is regular, no murmur gallop or rub. Abdomen is soft, non distended. Extremities: Left leg is swollen and red with pitting pedal edema. The redness is improved. Objective Labs 01/24/25 05:22 01/24/25 05:22 Labs: Laboratory Results - last 24 hr 01/24/25 05:22 WBC 6.4 RBC 3.26 L Hgb 11.6 L Hct 33.4 L MCV 102.6 H MCH 35.7 H MCHC 34.8 RDW 15.4 H Plt Count 230 Neut % (Auto) 66.7 Lymph % (Auto) 18.9 L Atlantic % (Auto) 10.5 Eos % (Auto) 2.8 Baso % (Auto) 1.1 Neut # (Auto) 4200 Lymph # (Auto) 1200 Atlantic # (Auto) 700 Eos # (Auto) 200 Baso # (Auto) 100 Sodium 130 L Potassium 3.8 Chloride 98 Carbon Dioxide 25 BUN 15 Creatinine 0.90 Estimated GFR > 60 BUN/Creatinine Ratio 16.7 Glucose 112 H Calcium 8.6 PFSH Medical History History of colon cancer BACILIO treated with BiPAP Surgical History 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 Left leg cellulitis, improving. 2. Acute atraumatic rhabdomyolysis, ground level fall. Resolved. 3. WALLACE, resolved. 4. SVT and demand ischemia, improved. - initial troponin 0.6 improved to 0.5 on repeat - ECHO without WMA. 5. BACILIO, stable. - APAP at night. 6. Hypokalemia/Hyponatremia, improved. 7. HTN, stable. - resumed Chlorthalidone, Losartan and Amlodipine 8. Acute on chronic lower back pain, new and improved. Xray on 01/23 without compression fractures. Likely related to the bed and chair. Has been using morphine IV as it works better for him than Dilaudid and oral pain medication. Encourage movement and physical therapy. 9. 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 10. Shoulder Strain. H/O rotator cuff injuries with severely restricted ROM at baseline. 11. Charcot arthropathy of the midfoot. Abnormal 2nd Lisfranc joint space articulation on xray. Consider ortho consultation. Plan: -continue IV antibiotics and leg elevation. (Vanco added after CT on 01/21) -arterial ultrasound of left leg without any evidence of peripheral vascular disease. -left leg CT negative, left foot xray negative for Osteomyelitis but read as Charcot arthropathy of the midfoot. Abnormal 2nd Lisfranc joint space articulation. -Left leg venous doppler negative for DVT on 01/23. -PT following -resumed chlorthalidone, losartan and amlodipine -resumed finasteride and tamsulosin -Lasix 20 mg IV X 1 on 01/23 for persisting left ankle swelling -he is medically clear for transition to [facility] facility on January 25. We will continue oral antibiotics for another 5 days at the time of discharge. SNF 1-2 days. PO antibiotics and PT. Time-Based Coding :: [TOTAL MINUTES] spent with patient and on the chart (including review of chart, obtaining history, exam, reviewing outside data, placing orders, documenting exam and treatment plan, and counseling patient) on [DATE]. Quality VTE Deep Vein Thrombosis/Pulmonary Embolism Present on Admission: No
[2025-01-24] MEDS: FINASTERIDE 5 MG TABLET PO (09:14)
[2025-01-24] MEDS: CHLORTHALIDONE 25 MG TABLET PO (09:16)
[2025-01-24] MEDS: ENOXAPARIN 40 MG/0.4 ML SYRINGE SUBCUT ×2 (09:16→19:49)
[2025-01-24] MEDS: ASPIRIN EC 81 MG TABLET PO ×2 (09:17→19:48)
[2025-01-24] MEDS: LOSARTAN 50 MG TABLET PO ×2 (09:17→19:50)
[2025-01-24] MEDS: AMLODIPINE 5 MG TABLET 2.5 MG PO (09:17)
[2025-01-24] MEDS: TAMSULOSIN 0.4 MG CAPSULE PO (09:18)
[2025-01-24] MEDS: cefTRIAXone 2,000 MG in SODIUM CHLORIDE 0.9% 100 ML 200 MG IV (10:02)
[2025-01-24] MEDS: FLEETS ENEMA 1 EACH PR (10:21)
--- NOTE | 2025-01-24 10:44 | PC.NURSE ---
Pt w/ active BT, c/o constipation. Fleets enema ordered and given w/ good results. SL LFA intact/patent. Call light w/in reach, pt calls frequently for needs.
--- NOTE | 2025-01-24 11:48 | CM.DPC ---
DCP SNF vs HH Cont: Per MD, pt to have enema today to hopefully help with back pain and pt was assisted to the floor and feels he injured his shoulder as well and possible imaging to r/o medical concern and PT/OT currently recommending SNF and will work with pt again today to determine if any progress made. ISSA met bedside with pt and explained role and he confirms he initially thought SNF and provided SNF Choice list of contracted [facility] SNFs and preference is either [facility] or [facility]. Pt also hopeful with his enema that he will be able to ambulate better today for home with HH at d/c and pt aware that MD anticipates likely medically stable for d/c tomorrow 01/25. SW made [facility] and [facility] referral and both anticipate they can accept but pt leaning towards [facility] as he lives in [place]. ISSA spoke to Lisette at [facility] and she will run both pt's [facility] and [facility] to determine if she can submit for SNF auth through [facility] as this insurance would be the fastest for auth time. Lisette states she will have the admission cell phone tomorrow for the holiday and the weekend to assist with coordinating insurance auth. PASRR done in anticipation of SNF. Previous referral sent to [facility] when pt was ambulating better and F2F/orders done. Plan: ISSA to follow closely for PT/OT today to help determine SNF vs HH at d/c. [facility] submitting for SNF auth. [facility] referral made in case pt progresses for safe d/c home via friend [facility]. LISSY Baxter
[2025-01-24] MEDS: VANCOMYCIN TROUGH 1 REQUEST MISC (12:00)
[2025-01-24] MEDS: VANCOMYCIN 2,000 MG/400 ML PIGGYBACK 200 MG IV (13:27)
--- NOTE | 2025-01-24 14:00 | PT.IPTN ---
Current Diagnoses Sepsis, unspecified organism (01/16/25) Physical Therapy Treatment Note M2 PT-IP Current Condition Start: 01/17/25 16:32 Freq: NEEDED Status: Active Protocol: Document 01/22/25 11:10 AB (Rec: 01/22/25 13:06 AB [id number]) Physical Therapy Current Condition Current Condition Evaluation Date 01/22/25 Treatment Diagnosis LLE cellulitis; back pain; difficulty in walking Onset Date 01/16/25 M3 PT-IP Subjective Start: 01/17/25 16:32 Freq: NEEDED Status: Active Protocol: Document 01/24/25 14:00 DLM (Rec: 01/24/25 14:46 DLM Desktop) Subjective Physical Therapy Visit Type Type Treatment Note Visit Start Time 13:30 Visit Stop Time 14:00 Notes 20 minutes charged, co-treat with Occupational Therapist due to his high fall risk 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 He reports 7/10 back pain but no leg pain and no leg numbness. He believes the infection in his left leg is better. Pt reports he self-catheterizes at home to manage urine issues. Patient Goals He wants to go home Therapy Pain Assessment Pain When Pain Assessed At Rest Pain Present Pain Present Pain Reported Location back/legs Intensity 7 Scale Used Numeric (0 - 10) Description Aching,Tender Pain Management Re-positioning Techniques M4 PT-IP Mobility and Gait Start: 01/17/25 16:32 Freq: NEEDED Status: Active Protocol: Document 01/24/25 14:00 DLM (Rec: 01/24/25 14:46 DLM Desktop) PT-Transfer Assessment Sit to and From Stand Sit to and from Minimal Assistance,2 Person Assistance,Use of Upper Stand Extremities Equipment Transfer Assistive Gait Belt,Front Wheeled Walker Device Comments Mobility Comments Pt is sitting up in his recliner. He got up earlier with nursing. He initially obtains standing better than prolonged standing. In standing he has flexed trunk over FWW and hyperextends his knees. As he stays in standing and attempts a more erect posture he has increased knee flexion that he can not control and shows limited awareness of it. He has decreased eccentric control stand to sit and lands heavily in the chair. The recliner was kept close behind him at all times this visit due to his high fall risk. Gait Assessment Gait Gait Assistance Moderate Assistance,2 Person Assist Required: Distance (Feet) 5 Assistive Devices Assistive Device Gait Belt,Front Wheeled Walker Gait Deviations General Gait Pattern Ataxic,Decreased Feet Clearance,Flexed Trunk,Wide Based Gait Factors Limiting Gait Function Factors Limiting Decreased Activity Tolerance,Decreased Sensation, Gait Function Decreased Strength,Incoordination,Poor Balance,Poor Safety Awareness Comments Gait Comments He demonstrates decreased coordination of LE's to take functional steps for gait. He was followed closely with the recliner by a third person due to his LE's being at high risk for giving out while he is upright. Pt is using flexed trunk and knee hyperextension to keep knees extended in standing. Pt wearing his shoes during gait training. Two person assist used at all times for gait training due to high fall risk. Stair Climbing Assessment Comments Stair Climbing unable Comments PT-Balance Assessment Sitting Balance and Reactions Static Sitting Good Balance Ability Dynamic Sitting Good Balance Ability Standing Balance and Reactions Static Standing Poor Balance Ability Dynamic Standing Poor Balance Ability Device Used FWW Functional Assessments Other Functional Tests pt incontinent of urine during this visit Performed M5 PT-IP Objective Assessments Start: 01/17/25 16:32 Freq: NEEDED Status: Active Protocol: Document 01/24/25 14:00 DLM (Rec: 01/24/25 14:46 DLM Desktop) Orientation Orientation/Cognition Level of Alertness Alert Orientation Name,Age,Birthday,Month,Date,Year,Day of Week,Place, Situation Language Function Hard of Hearing Ability Safety Awareness Decreased Safety Awareness Memory Description Short Term Impaired Comments he presents with decreased safety awareness, decreased awareness of his new deficits in LE's with activity Gross Range of Motion Upper Extremity ROM Impairments new onset of shoulder pain since he had a fall at hospital with staff, he reports reaching left UE back to catch himself Lower Extremity ROM Assessment Within Functional Limits Strength Lower Extremity Strength Assessment Bilaterally Impaired Hip right flex 2+/5, left 4/5 Knee right ext 3+/5, left 4/5 Coordination Assessment Gross Coordination Gross Coordination Impaired Assessment Foot Tapping Test Severe Impairment Coordination ataxic LE's Comments Sensation Assessment Sensation Gross Sensation Right LE Impaired,Left LE Impaired Proprioception ( Impaired Position) Comments Sensation Comments edema left LE decreased sensation bilateral distal LE's Muscle Tone Muscle Tone WNL No Comments Muscle Tone Comments hypotonic LE's with right worse than left M6 PT-IP Treatment Start: 01/17/25 16:32 Freq: NEEDED Status: Active Protocol: Document 01/24/25 14:00 DLM (Rec: 01/24/25 14:46 DLM Desktop) Physical Therapy Treatment Education Education Provided Safety M7 PT-IP Assessment and Plan Start: 01/17/25 16:32 Freq: NEEDED Status: Active Protocol: Document 01/24/25 14:00 DLM (Rec: 01/24/25 14:46 DLM Desktop) PT Summary Assessment and Plan Summary Impairments Pain,ROM,Strength,Balance,Coordination,Sensation,Tone, Cognition,Bed Mobility,Transfers,Gait,Activity Tolerance Progress Towards Slow Progress due to Medical Issues Goals Assessment Summary Jaime is alert and sitting up in recliner this visit. Clinically he demonstrates increased LE weakness with right greater than left and buckling of his LE's in standing. He is able to take a few steps with the FWW and two person assist with poor control of his knees. Unclear why his LE's are so much weaker than earlier during this hospitalization. Closely following pt with chair during gait due to his high fall risk. Recommend nursing use mechanical lift for transfers at this time to decrease his fall risk. Pt has decreased understanding of his new deficits at this time. Recommend SNF rehab at discharge. He is not safe to discharge home alone with his current level of weakness and LE buckling. Goals Bed Mobility Goal Independent Transfer Goal Independent,Front Wheeled Walker Gait Goal Independent,Front Wheel Walker Gait Distance 100 Days to Meet Goals 10 Frequency of Treatment Frequency Of Once a Day Treatment Treatment Plan Physical Therapy Bed Mobility Training,Transfer Training,Gait Training, Treatment Plan Therapeutic Exercise,Balance Retraining,Discharge Planning,Hot or Cold Pack,Neuromuscular Re-ed, Coordination Retraining,Manual Therapy Precautions Other Precautions high fall risk cellulitis left distal LE Recommendations To Nursing Amount of Assist Mechanical Lift Needed Discharge Recommendations PT Discharge SNF Rehab Recommendations Equipment Needed for he owns FWW and 4WW Home Before Discharge Transportation Needs Wheelchair/Cabulance,Stretcher/Ambulance at Discharge - PT assist 2
--- NOTE | 2025-01-24 14:10 | OT.IP.TRT ---
Current Diagnoses Sepsis, unspecified organism (01/16/25) Occupational Therapy Treatment Note M2 OT-IP Current Condition Start: 01/17/25 10:23 Freq: Status: Active Protocol: Document 01/17/25 10:24 [facility] (Rec: 01/17/25 10:54 [facility] Desktop) Occupational Therapy Current Condition Current Condition Evaluation Date 01/17/25 Treatment Diagnosis Sepsis, acute traumatic rhabodo due to fall Diagnosis Onset Date 01/16/25 M3 OT- IP Subjective and Pain Start: 01/17/25 10:23 Freq: Status: Active Protocol: Document 01/24/25 14:14 [facility] (Rec: 01/24/25 14:37 [facility] Desktop) OT- Subjective Occupational Therapy Visit Type Type Treatment Note Visit Start Time 13:30 Visit Stop Time 14:10 Occupational Therapy Visit Comments Patient Comments Pt agreed to get up able to see pt with PT for part of the session as pt needing extensive assist for mobility needs due increased RLE weakness. Patient/Caregiver Pt wanting to go home. Goals OT Pain Assessment Pain When Pain Assessed At Rest Pain Present Pain Present Pain Reported Location back/legs Intensity 7 Scale Used Numeric (0 - 10) M4 OT- IP ADL's Start: 01/17/25 10:23 Freq: Status: Active Protocol: Document 01/24/25 14:14 [facility] (Rec: 01/24/25 14:37 [facility] Desktop) OT [id number] General Evaluation Self-Feeding Ability Independent OT ADL-Grooming General Evaluation Grooming Ability Standby Assistance Comments OT Grooming Comments Pt able to do while seated in the recliner but needing increased time, but able to coordinate his hand to do the task. OT ADL-Oral Care General Eval Oral Care Ability Independent OT ADL-Dressing General Eval Lower Body Dressing Maximum Assistance Ability Comments OT Dressing Comments Assist to help get on his velcro shoes. OT ADL-Toileting Comments OT Toileting Pt having to use the container as a urinal. Comments M5 OT- IP IADL's Start: 01/17/25 10:23 Freq: Status: Active Protocol: Document 01/17/25 10:24 [facility] (Rec: 01/17/25 10:54 [facility] Desktop) OT-Instrumental Activities of Daily Living Home Safety Awareness Awareness of Need Good Awareness for Assistance at Home Ability to Problem Able to Problem Solve Solve Emergency Situations Medication Management Medication Pt uses a pill organizer. Management Comments Money Management Money Management Pt does his own. Comments Meal Preparation Meal Preparation Pt may benefit from assist. Comments Bar Turner Bar Turner Pt may benefit from assist. Comments M6 OT- IP Functional Cognition Start: 01/17/25 10:23 Freq: Status: Active Protocol: Document 01/24/25 14:14 [facility] (Rec: 01/24/25 14:37 [facility] Desktop) Cognitive Factors Limiting Selfcare Function Cognitive Comments Cognitive Assessment Pt insistent that he can just go home but open to Comments skilled rehab. Pt has poor safety awareness of his balance and sensation on his feet when up on them during therapy. M7 OT- IP Mobility and Balance Start: 01/17/25 10:23 Freq: Status: Active Protocol: Document 01/24/25 14:14 [facility] (Rec: 01/24/25 14:37 [facility] Desktop) OT-Transfer Assessment Sit to and From Stand Sit to and from Minimal Assistance,1 Person Assistance Stand Comments Mobility Comments VICK x2 to stand to the FWW from the recliner. MODA X 2 with FWW and close chair follow to be able to walk 5 ft. Pt BLE very shaky and weak, as pt tires his knee bend and then having to ask pt to sit down. Pt has poor control for his descent. Educated pt to work on exercises in the recliner especially for his BLE and core. OT- Balance Assessment Sitting Balance and Reactions Static Sitting Normal Balance Ability Dynamic Sitting Good Balance Ability Standing Balance and Reactions Static Standing Poor Balance Ability Dynamic Standing Poor Balance Ability M8 OT- IP Objective Assessments Start: 01/17/25 10:23 Freq: Status: Active Protocol: Document 01/17/25 10:24 [facility] (Rec: 01/17/25 10:54 [facility] Desktop) OT Gross Range of Motion Upper Extremity Range of Motion Assessment Bilaterally Impaired OT Strength Upper Extremity Strength Assessment Bilaterally Impaired Comments Strength Comments BUE shoulder 3-/5 , elbow to distal 5/5 Pt has history of rotator cuff injuries. Per pt states right one was fixed but did not heal properly and still has issues with the left one. M9 OT- IP Assessment and Plan Start: 01/17/25 10:23 Freq: Status: Active Protocol: Document 01/24/25 14:14 [facility] (Rec: 01/24/25 14:37 [facility] Desktop) OT Summary Assessment and Plan Potential Rehabilitation Good Potential Analytic Complexity Moderate at Evaluation Summary OT Impairments Pain,Range of Motion,Strength,Balance,Functional Mobility,Grooming,Dressing,Toileting,Bathing,Toilet Transfers Progress Towards Progressing Toward Goals,Slow Progress due to Pain,Slow Goals Progress due to Medical Issues,Slow Progress due to Activity Tolerance Assessment Summary Pt able to stand with VICK x2 with FWW and take a few steps with PT MODA X 2 with fww and close chair follow. Pt's RLE weaker then LLE. At this time best for pt to go to skilled rehab. Pt able to appropriately use his BUE to assist to stand at this time from the recliner. Goals Self-Feeding Goal Independent Grooming Goal Independent Dressing Goal Independent Toileting Goal Independent Bathing Goal Independent Toilet Transfer Goal Independent Shower Transfer Goal Independent Days to Meet Goals 25 Frequency of Treatment Other frequency 5x/week Treatment Plan OT Treatment Plan ADL Training,Functional Mobility,Patient/Family Education,Discharge Planning Discharge Recommendations OT Discharge SNF Rehab Recommendations Transportation Needs Wheelchair/Cabulance at Discharge
[2025-01-24 14:28] VITALS: BP 93/63; PULSE 111; RESP 20; TEMP 36.1; O2SAT 93
[2025-01-24] MEDS: MORPHINE 4 MG/ML INJ IV (19:46)
[2025-01-24] MEDS: ATORVASTATIN 20 MG TABLET 5 MG PO (19:48)
[2025-01-24 19:50] VITALS: BP 107/69; PULSE 99
[2025-01-24 20:00] VITALS: BP 107/69; PULSE 99; RESP 18; TEMP 36.7; O2SAT 95
[2025-01-24] MEDS: CYCLOBENZAPRINE 10 MG TABLET PO (22:33)
[2025-01-25] MEDS: VANCOMYCIN 2,000 MG/400 ML PIGGYBACK 200 MG IV ×2 (01:56→12:55)
[2025-01-25 04:00] VITALS: BP 133/77; PULSE 76; RESP 18; TEMP 35.9; O2SAT 96
[2025-01-25] MEDS: HYDROMORPHONE 2 MG TABLET 4 MG PO ×2 (07:57→16:55)
[2025-01-25 08:00] VITALS: BP 152/63; PULSE 81; RESP 16; TEMP 36.4; O2SAT 97
[2025-01-25] MEDS: LOSARTAN 50 MG TABLET PO ×2 (08:01→20:27)
[2025-01-25] MEDS: AMLODIPINE 5 MG TABLET 2.5 MG PO (08:01)
[2025-01-25] MEDS: TAMSULOSIN 0.4 MG CAPSULE PO (08:01)
[2025-01-25] MEDS: ENOXAPARIN 40 MG/0.4 ML SYRINGE SUBCUT ×2 (08:03→20:29)
[2025-01-25] MEDS: FINASTERIDE 5 MG TABLET PO (08:03)
[2025-01-25] MEDS: ASPIRIN EC 81 MG TABLET PO ×2 (08:03→20:25)
[2025-01-25] MEDS: SODIUM CHLORIDE 0.9% FLUSH 10 ML IV ×2 (08:04→20:33)
[2025-01-25] MEDS: CHLORTHALIDONE 25 MG TABLET PO (08:07)
--- NOTE | 2025-01-25 09:09 | DIET.PN1 ---
Dietary Progress Note Assessment: f/u Continued good PO intakes, 75-100%. BM recorded yesterday in I&Os. Ht: 190.5 cm Wt: 144.9 kg BMI: 38.9 Last BM: 01/21/25 (01/21/25 06:35) MNA: 11 Tone Score: 19 Diet: 01/16/25 Dinner General (Regular) Diet Diet Modifications: Labs: RBC 3.26 X10^6/uL (4.5-5.9) L 01/24/25 05:22 Hgb 11.6 g/dL (13.5-17.5) L 01/24/25 05:22 Hct 33.4 % (41-53) L 01/24/25 05:22 Creatinine 0.90 mg/dL (0.66-1.25) 01/24/25 05:22 Hemoglobin A1c 5.7 % (4.0-6.0) 01/23/25 04:40 Lactate 1.6 mmol/L (0.7-2.1) 01/16/25 10:35 NT-Pro-B Natriuret Pep 2170 pg/mL (<125) H 01/16/25 11:47 Nutrition Diagnosis: No nutritional interventions needed. Electronically Signed by: Kelly Ron 01/25/25 09:09 Clinical Dietitian [address] [id number]
[2025-01-25] MEDS: cefTRIAXone 2,000 MG in SODIUM CHLORIDE 0.9% 100 ML 200 MG IV (09:27)
--- NOTE | 2025-01-25 11:07 | PM.PN.1 ---
Subjective Subjective Interval history: Summary: He was admitted with cellulitis which is slowly improving. He has much less redness and pain now. His lower back pain has also improved significantly. He was bilateral shoulder pain with a history of a right shoulder cuff repair. He was being evaluated outpatient by Orthopedics for his left shoulder. He was a small ulceration which appears to be consistent with a plantar wart versus a corn on the left foot. There was no evidence of infection around this area. S: He feels better today, the left leg has been elevated consistently, and that is less redness and pain. He was no lower back pain today. It was left shoulder is tender and has very limited range of motion. Exam Vital Signs (past 8 hours): - 01/25/25 04:00 01/25/25 08:00 Temperature 96.7 F L 97.6 F Pulse Rate 76 81 Respiratory Rate 18 16 Blood Pressure 133/77 152/63 H Pulse Oximetry 96 97 Oxygen Flow Rate 0 0 Oxygen Delivery Method Room Air Oxygen Flow Rate 0 Narrative Exam Narrative: NAD, alert and oriented. Fluent speech. Lungs are clear, normal rate and effort. Heart is regular, no murmur gallop or rub. Abdomen is soft, non distended. Extremities: Left leg is much less swollen and the erythema has now resolved with a small area of pinkness in the lower anterior negron. 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 Left leg cellulitis, improving. 2. Acute atraumatic rhabdomyolysis, ground level fall. Resolved. 3. WALLACE, resolved. 4. SVT and demand ischemia, improved. - initial troponin 0.6 improved to 0.5 on repeat - ECHO without WMA. 5. BACILIO, stable. - APAP at night. 6. Hypokalemia/Hyponatremia, improved. 7. HTN, stable. - resumed Chlorthalidone, Losartan and Amlodipine 8. Acute on chronic lower back pain, new and improved. Xray on 01/23 without compression fractures. Likely related to the bed and chair. Has been using morphine IV as it works better for him than Dilaudid and oral pain medication. Encourage movement and physical therapy. 9. 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 10. Shoulder Strain. H/O rotator cuff injuries with severely restricted ROM at baseline. 11. Charcot arthropathy of the midfoot. Abnormal 2nd Lisfranc joint space articulation on xray. Consider ortho consultation. Plan: -continue IV antibiotics and leg elevation. (Vanco added after CT on 01/21) -arterial ultrasound of left leg without any evidence of peripheral vascular disease. -left leg CT negative, left foot xray negative for Osteomyelitis but read as Charcot arthropathy of the midfoot. Abnormal 2nd Lisfranc joint space articulation. -Left leg venous doppler negative for DVT on 01/23. -PT following -resumed chlorthalidone, losartan and amlodipine -resumed finasteride and tamsulosin -Lasix 20 mg IV X 1 on 01/23 for persisting left ankle swelling -he is medically clear for transition to residential facility on January 25. We will continue oral antibiotics for another 5 days at the time of discharge. He is currently pending authorization for [facility] residential facility. Time-Based Coding :: [TOTAL MINUTES] spent with patient and on the chart (including review of chart, obtaining history, exam, reviewing outside data, placing orders, documenting exam and treatment plan, and counseling patient) on [DATE]. Quality VTE Deep Vein Thrombosis/Pulmonary Embolism Present on Admission: No
--- NOTE | 2025-01-25 13:15 | PT.IPTN ---
Current Diagnoses Sepsis, unspecified organism (01/16/25) Physical Therapy Treatment Note M2 PT-IP Current Condition Start: 01/17/25 16:32 Freq: NEEDED Status: Active Protocol: Document 01/22/25 11:10 AB (Rec: 01/22/25 13:06 AB [id number]) Physical Therapy Current Condition Current Condition Evaluation Date 01/22/25 Treatment Diagnosis LLE cellulitis; back pain; difficulty in walking Onset Date 01/16/25 M3 PT-IP Subjective Start: 01/17/25 16:32 Freq: NEEDED Status: Active Protocol: Document 01/25/25 13:15 AB (Rec: 01/25/25 15:52 AB [id number]) Subjective Physical Therapy Visit Type Type Treatment Note Visit Start Time 13:15 Visit Stop Time 13:40 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 Physical Therapy Visit Comments Patient Comments agreeable to get up M4 PT-IP Mobility and Gait Start: 01/17/25 16:32 Freq: NEEDED Status: Active Protocol: Document 01/25/25 13:15 AB (Rec: 01/25/25 15:52 AB [id number]) PT-Bed Mobility Assessment Supine to Sit Supine to Sit Standby Assistance,Head of Bed Elevated,Bedrails PT-Transfer Assessment Sit to and From Stand Sit to and from Maximum Assistance,2 Person Assistance,Use of Upper Stand Extremities Equipment Transfer Assistive Gait Belt,Front Wheeled Walker Device Orthotic/Prosthetic No Devices or Brace: Transfers Transfer Destination Chair Transfer Technique Stand Pivot Transfer Ability Level of Assist Maximum Assistance,2 Person Assistance,Use of Upper Extremities Comments Mobility Comments pt in bed and agreed to do PT. Co-tx with OT conducted due to pt's complex medical and assistance needs. pt is very impulsive and have decrease safety awareness. pt stated and insistent that he has torn his L rotator cuff when he was standing with PT ~ 2 days ago. This PT saw pt 2 days ago and pt did not c/o L shoulder pain during the entire PT session that day. pt also stated that he did not do any therapy the other day when OT checked on him and this is because he was too tired and had a big BM. OT and PT checked on him that day and pt refused therapies due to c/o back pain and did not want to do anything to aggravate the pain. pt with confusion and has decrease safety awareness. pt completed supine to sit SBA. requiring mod to max A for sitting balance. presents with increase retrolean and cued to correct but pt stated that he is not leaning back and unable of body position. pt is very impulsive and needs max cues for safety. sit to stand from elevated bed requiring max A x 2-3 and max cues and was able to complete stand pivot transfer using FWW max A x 2-3 and max cues. Attempted sit <>stand from chair x 3 attempts but pt unable to get to full upright position despite max A x 2-3 provided. positioned pt on the chair. call light and table placed within reach. M5 PT-IP Objective Assessments Start: 01/17/25 16:32 Freq: NEEDED Status: Active Protocol: Document 01/24/25 14:00 DLM (Rec: 01/24/25 14:46 DLM Desktop) Orientation Orientation/Cognition Level of Alertness Alert Orientation Name,Age,Birthday,Month,Date,Year,Day of Week,Place, Situation Language Function Hard of Hearing Ability Safety Awareness Decreased Safety Awareness Memory Description Short Term Impaired Comments he presents with decreased safety awareness, decreased awareness of his new deficits in LE's with activity Gross Range of Motion Upper Extremity ROM Impairments new onset of shoulder pain since he had a fall at hospital with staff, he reports reaching left UE back to catch himself Lower Extremity ROM Assessment Within Functional Limits Strength Lower Extremity Strength Assessment Bilaterally Impaired Hip right flex 2+/5, left 4/5 Knee right ext 3+/5, left 4/5 Coordination Assessment Gross Coordination Gross Coordination Impaired Assessment Foot Tapping Test Severe Impairment Coordination ataxic LE's Comments Sensation Assessment Sensation Gross Sensation Right LE Impaired,Left LE Impaired Proprioception ( Impaired Position) Comments Sensation Comments edema left LE decreased sensation bilateral distal LE's Muscle Tone Muscle Tone WNL No Comments Muscle Tone Comments hypotonic LE's with right worse than left M6 PT-IP Treatment Start: 01/17/25 16:32 Freq: NEEDED Status: Active Protocol: Document 01/25/25 13:15 AB (Rec: 01/25/25 15:52 AB [id number]) Physical Therapy Treatment Education Education Provided Safety M7 PT-IP Assessment and Plan Start: 01/17/25 16:32 Freq: NEEDED Status: Active Protocol: Document 01/25/25 13:15 AB (Rec: 01/25/25 15:52 AB [id number]) PT Summary Assessment and Plan Potential Rehabilitation Fair Potential Summary Impairments Pain,ROM,Strength,Balance,Coordination,Sensation,Tone, Cognition,Bed Mobility,Transfers,Gait,Activity Tolerance Progress Towards Slow Progress due to Activity Tolerance,Slow Progress - Goals Other Assessment Summary pt requiring max Ax 2-3 for transfers using FWW. pt is very impulsive and has decrease safety awareness. pt will require SNF rehab to improve overall mobility independence. Goals Bed Mobility Goal Independent Transfer Goal Independent,Front Wheeled Walker Gait Goal Independent,Front Wheel Walker Gait Distance 100 Days to Meet Goals 10 Frequency of Treatment Frequency Of Once a Day Treatment Treatment Plan Physical Therapy Bed Mobility Training,Transfer Training,Gait Training, Treatment Plan Therapeutic Exercise,Balance Retraining,Discharge Planning,Hot or Cold Pack,Neuromuscular Re-ed, Coordination Retraining,Manual Therapy Precautions Other Precautions high fall risk cellulitis left distal LE Recommendations To Nursing Amount of Assist Mechanical Lift Needed Discharge Recommendations PT Discharge SNF Rehab Recommendations Transportation Needs Wheelchair/Cabulance,Stretcher/Ambulance at Discharge - PT assist 2-3
--- NOTE | 2025-01-25 14:15 | CM.DPNOTE ---
DCP Cont Email sent to Lisette at [facility] today; hoping for update re patient's SNF auth request- [facility]. ISSA team following closely. BEATA
--- NOTE | 2025-01-25 15:09 | OT.IP.TRT ---
Current Diagnoses Sepsis, unspecified organism (01/16/25) Occupational Therapy Treatment Note M2 OT-IP Current Condition Start: 01/17/25 10:23 Freq: Status: Active Protocol: Document 01/17/25 10:24 [facility] (Rec: 01/17/25 10:54 [facility] Desktop) Occupational Therapy Current Condition Current Condition Evaluation Date 01/17/25 Treatment Diagnosis Sepsis, acute traumatic rhabodo due to fall Diagnosis Onset Date 01/16/25 M3 OT- IP Subjective and Pain Start: 01/17/25 10:23 Freq: Status: Active Protocol: Document 01/25/25 14:48 [facility] (Rec: 01/25/25 15:09 [facility] Desktop) OT- Subjective Occupational Therapy Visit Type Type Treatment Note Visit Start Time 13:20 Visit Stop Time 13:46 Occupational Therapy Visit Comments Patient Comments Pt was reclined in bed preparing for PT on entrance of OT. Pt agreed to participate in therapy Patient/Caregiver Pt wanting to go home. Goals OT Pain Assessment Pain When Pain Assessed At Rest Pain Present Pain Present Pain Reported M4 OT- IP ADL's Start: 01/17/25 10:23 Freq: Status: Active Protocol: Document 01/25/25 14:48 [facility] (Rec: 01/25/25 15:09 [facility] Desktop) OT CQO-Ijbi-Vwecgqu General Evaluation Self-Feeding Ability Independent OT ADL-Grooming General Evaluation Grooming Ability Standby Assistance Comments OT Grooming Comments Pt brushed his hair while seated in recliner on set up. OT ADL-Oral Care General Eval Oral Care Ability Standby Assistance Comments Oral Care Comments Pt performed oral hygiene while seated in recliner. OT presented pt with supplies and he was able to perform all other aspects of this task. OT ADL-Dressing Comments OT Dressing Comments Pt required assist to fasten his brief while supine in bed. Pt required total A to don socks. Pt did not want to wear his shoes today because they are too heavy OT ADL-Toileting General Evaluation Toileting Ability Standby Assistance Comments OT Toileting not observed Comments OT ADL-Bathing Comments OT Bathing Comments not observed M5 OT- IP IADL's Start: 01/17/25 10:23 Freq: Status: Active Protocol: Document 01/17/25 10:24 [facility] (Rec: 01/17/25 10:54 [facility] Desktop) OT-Instrumental Activities of Daily Living Home Safety Awareness Awareness of Need Good Awareness for Assistance at Home Ability to Problem Able to Problem Solve Solve Emergency Situations Medication Management Medication Pt uses a pill organizer. Management Comments Money Management Money Management Pt does his own. Comments Meal Preparation Meal Preparation Pt may benefit from assist. Comments Director Post Director Post Pt may benefit from assist. Comments M6 OT- IP Functional Cognition Start: 01/17/25 10:23 Freq: Status: Active Protocol: Document 01/24/25 14:14 [facility] (Rec: 01/24/25 14:37 [facility] Desktop) Cognitive Factors Limiting Selfcare Function Cognitive Comments Cognitive Assessment Pt insistent that he can just go home but open to Comments skilled rehab. Pt has poor safety awareness of his balance and sensation on his feet when up on them during therapy. M7 OT- IP Mobility and Balance Start: 01/17/25 10:23 Freq: Status: Active Protocol: Document 01/25/25 14:48 [facility] (Rec: 01/25/25 15:09 [facility] Desktop) OT- Bed Mobility Assessment Supine to Sit Supine to Sit Assist Standby Assistance OT-Transfer Assessment Sit to and From Stand Sit to and from Maximum Assistance,2 Person Assistance,Use of Upper Stand Extremities Transfers Transfer Ability Maximum Assistance,2 Person Assistance,Use of Upper Extremities Technique Transfer Destination Chair Transfer Technique Stand Step Pivot Devices Transfer Assistive Front Wheeled Walker Devices Comments Mobility Comments Pt sits EOB with vcs to sit upright as pt continual loses balance posteriorly. Pt is unable to self correct without vcs. Pt requires MAX of 2-3 to stand with FWW and t/f by stand pivot to the recliner chair. Pt said he wanted to try to walk. Pt attempted sit>stand from recliner with MAX of 3 but was unable to come into full standing and walking was not attempted. Pt with POOR safety awareness, impulsivity, and directs his therapy requiring therapists to repeat vcs for safety during t/ f. OT- Balance Assessment Sitting Balance and Reactions Static Sitting Normal Balance Ability Dynamic Sitting Good Balance Ability Standing Balance and Reactions Static Standing Poor Balance Ability M8 OT- IP Objective Assessments Start: 01/17/25 10:23 Freq: Status: Active Protocol: Document 01/17/25 10:24 [facility] (Rec: 01/17/25 10:54 [facility] Desktop) OT Gross Range of Motion Upper Extremity Range of Motion Assessment Bilaterally Impaired OT Strength Upper Extremity Strength Assessment Bilaterally Impaired Comments Strength Comments BUE shoulder 3-/5 , elbow to distal 5/5 Pt has history of rotator cuff injuries. Per pt states right one was fixed but did not heal properly and still has issues with the left one. M9 OT- IP Assessment and Plan Start: 01/17/25 10:23 Freq: Status: Active Protocol: Document 01/25/25 14:48 [facility] (Rec: 01/25/25 15:09 [facility] Desktop) OT Summary Assessment and Plan Potential Rehabilitation Good Potential Analytic Complexity Moderate at Evaluation Summary OT Impairments Pain,Range of Motion,Strength,Balance,Functional Mobility,Grooming,Dressing,Toileting,Bathing,Toilet Transfers Progress Towards Progressing Toward Goals,Slow Progress due to Pain,Slow Goals Progress due to Medical Issues,Slow Progress due to Activity Tolerance Assessment Summary Pt is impulsive and likes to try to direct his treatment, requiring therapists to repeat vc/tc especially during functional mobility. Today pt required MAX of 2-3 for sit<>stand and t/f to chair. Pt was able to perform grooming and oral hygiene while seated on set up. Pt may benefit from a wide sock aid for LB dressing. Pt was more limited in using his UE during functional t/fs today stating L shoulder pain that he believes is related to a rotator cuff injury. Pt left up in chair with all needs met and in reach, including call light. Pt would benefit from skilled rehab for improved functional I and to return toward PLOF. Goals Self-Feeding Goal Independent Grooming Goal Independent Dressing Goal Independent Toileting Goal Independent Bathing Goal Independent Toilet Transfer Goal Independent Shower Transfer Goal Independent Days to Meet Goals 26 Frequency of Treatment Frequency Of Once a Day Treatment Other frequency 5x/week Treatment Plan OT Treatment Plan ADL Training,Functional Mobility,Patient/Family Education,Discharge Planning Other Treatment [place] Making B Recommendations and Next Treatment Focus Discharge Recommendations OT Discharge SNF Rehab Recommendations Transportation Needs Wheelchair/Cabulance at Discharge
[2025-01-25 16:00] VITALS: BP 140/68; PULSE 77; RESP 18; TEMP 36.7; O2SAT 97
[2025-01-25] MEDS: CYCLOBENZAPRINE 10 MG TABLET PO (16:55)
[2025-01-25] MEDS: ATORVASTATIN 20 MG TABLET 5 MG PO (20:25)
[2025-01-25 20:27] VITALS: BP 136/75; PULSE 82
[2025-01-25 20:34] VITALS: BP 136/75; PULSE 82; RESP 20; TEMP 36; O2SAT 95
[2025-01-26 01:37] LABS: Hematocrit 33.7 % (41-53); Hemoglobin 11.8 g/dL (13.5-17.5); Mean Corpuscular HGB Conc 35.2 % (30-36); Mean Corpuscular Hemoglobin 35.7 PG (26-34); Mean Corpuscular Volume 101.4 fL (80-100); Platelet Count 234 X10^3/uL (150-400)
[2025-01-26 01:48] LABS: Blood Urea Nitrogen 20 mg/dL (9-20); Calcium 9.1 mg/dL (8.4-10.2); Carbon Dioxide 25 mmol/L (22-32); Chloride 100 mmol/L (98-107); Estimated Glomerular Filt Rate > 60 mL/min (>60); Glucose 95 mg/dL (70-99); HEMOLYSIS < 15 (0-50); Potassium 3.9 mmol/L (3.4-5.1); Sodium 133 mmol/L (137-145)
[2025-01-26] MEDS: VANCOMYCIN TROUGH 1 REQUEST MISC (01:54)
[2025-01-26] MEDS: VANCOMYCIN 2,000 MG/400 ML PIGGYBACK 200 MG IV (01:58)
[2025-01-26 04:00] VITALS: BP 173/94; PULSE 85; RESP 18; TEMP 36.1; O2SAT 98
--- NOTE | 2025-01-26 07:37 | P.PN_ITS ---
Subjective Subjective Date Patient Seen: 01/26/25 Interval history: His antibiotics will be changed to oral doxycycline today. The cellulitis is improving rapidly. The blood pressure was 173/94. The white blood count is 5.8 with a hemoglobin of 11.8 and a normal BMP. He tells me that he lives alone in [place]. He blames his weakness and minimal PT participation on ?low energy that day. ? Therapy reports that he has been very weak, unable to stand or walk for several days. Exam Vital Signs (past 8 hours): - 01/26/25 04:00 Temperature 96.9 F L Pulse Rate 85 Respiratory Rate 18 Blood Pressure 173/94 H Pulse Oximetry 98 Oxygen Flow Rate 0 Oxygen Delivery Method Room Air Oxygen Flow Rate 0 Narrative Exam Narrative: Alert and oriented x3. No apparent distress. Globally weak No complaints of pain today Heart is regular rate and rhythm without murmur Lungs are clear to auscultation bilaterally Trace edema left foot and left ankle with minimal pink discoloration in a much smaller distribution. No right ankle edema. 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 Left leg cellulitis, improving. 2. Acute atraumatic rhabdomyolysis, ground level fall. Resolved. 3. WALLACE, resolved. 4. SVT and demand ischemia, improved. - initial troponin 0.6 improved to 0.5 on repeat - ECHO without WMA. 5. BACILIO, stable. - APAP at night. 6. Hypokalemia/Hyponatremia, improved. 7. HTN, stable. - resumed Chlorthalidone, Losartan and Amlodipine 8. Acute on chronic lower back pain, new and improved. Xray on 01/23 without compression fractures. Likely related to the bed and chair. Has been using morphine IV as it works better for him than Dilaudid and oral pain medication. Encourage movement and physical therapy. Lumbar spine MRI ordered on 01/26/2025. 9. 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 10. Shoulder Strain. H/O rotator cuff injuries with severely restricted ROM at baseline. 11. Charcot arthropathy of the midfoot. Abnormal 2nd Lisfranc joint space articulation on xray. Consider ortho consultation. Plan: -change from IV antibiotics to oral doxycycline on 01/26. -arterial ultrasound of left leg without any evidence of peripheral vascular disease. -left leg CT negative, left foot xray negative for Osteomyelitis but read as C harcot arthropathy of the midfoot. Abnormal 2nd Lisfranc joint space articulation. -Left leg venous doppler negative for DVT on 01/23. -PT following -resumed chlorthalidone, losartan and amlodipine -resumed finasteride and tamsulosin -Lasix 20 mg IV X 1 on 01/23 for persisting left ankle swelling -he is medically clear for transition to assisted facility on January 27. We will continue oral antibiotics for another 5 days at the time of discharge. He is currently pending authorization for [facility]. Time-Based Coding :: [TOTAL MINUTES] spent with patient and on the chart (including review of chart, obtaining history, exam, reviewing outside data, placing orders, documenting exam and treatment plan, and counseling patient) on [DATE]. Quality VTE Deep Vein Thrombosis/Pulmonary Embolism Present on Admission: No
[2025-01-26] MEDS: LOSARTAN 50 MG TABLET PO ×2 (08:58→20:37)
[2025-01-26] MEDS: ENOXAPARIN 40 MG/0.4 ML SYRINGE SUBCUT (08:58)
[2025-01-26] MEDS: ASPIRIN EC 81 MG TABLET PO ×2 (08:58→20:37)
[2025-01-26] MEDS: TAMSULOSIN 0.4 MG CAPSULE PO (08:58)
[2025-01-26] MEDS: FINASTERIDE 5 MG TABLET PO (08:58)
[2025-01-26] MEDS: AMLODIPINE 5 MG TABLET 2.5 MG PO (08:59)
[2025-01-26] MEDS: CHLORTHALIDONE 25 MG TABLET PO (09:01)
[2025-01-26] MEDS: SODIUM CHLORIDE 0.9% FLUSH 10 ML IV ×2 (09:03→20:38)
[2025-01-26 12:00] VITALS: BP 136/89; PULSE 92; RESP 15; TEMP 36; O2SAT 98
--- NOTE | 2025-01-26 13:17 | CM.DPNOTE ---
DCP note ORCHESTRATOR reviewed EMR lvm with Lisette at [facility] re: ins auth SNF pending. no response as of 1314. PASRR previously completed CM team will continue to follow closely for DCP coordination LISSY Rose
--- NOTE | 2025-01-26 13:34 | DI.MRI.S_ITS ---
PROCEDURE: MR LUMBAR SPINE WO CON INDICATIONS: Acute Low back pain TECHNIQUE: Noncontrast sagittal T1 spin echo and T2 fast echo, sagittal STIR, and T2 fast spin echo through the lumbar spine. In cases with scoliosis, additional coronal T2 fast spin echo may be performed. COMPARISON: [facility], MR, MR LUMBAR SPINE WO CON, 08/29/2022, 8:12. [facility], CR, XR LUMBAR SPINE 2-3V, 01/23/2025, 8:54. FINDINGS: Image quality: Diagnostic Alignment and Curvature: No spondylolisthesis Bone Marrow: No acute fracture related edema. L3-L4 posterior fusion hardware with interbody spacer again seen. Spinal Cord: Cord terminates in normal position. Paraspinous Soft Tissues: No paraspinal fluid collection. There is lujy-ju-lbgnbogd edema posterior to the spinous process T12-L1: Small diffuse disc bulge. Mild facet arthropathy. No stenosis. L1-L2: Small diffuse disc bulge and mild facet arthropathy. There is minimal central narrowing. Ligamentum hypertrophy is present. L2-L3: Central protrusion and superimposed disc bulge. Moderate facet arthropathy. Wckp-py-wvqpeduw right and moderate left neural foraminal narrowing. Ligamentum hypertrophy moderate central narrowing particularly involving the left subarticular recess. This level is worse. L3-L4: Fused level. Moderate left neural foraminal narrowing. Mild right neural foraminal narrowing. L4-L5: Moderate diffuse disc bulge and central protrusion. Posterior decompression. Moderate facet arthropathy. Mild narrowing of the subarticular recesses anteriorly. Ewbe-ft-qcoygivi left and right neural foraminal narrowing. Annular fissure is present. This level is slightly worse. L5-S1: Moderate facet arthropathy and diffuse disc bulge. Moderate to severe right and moderate left neural foraminal narrowing. Moderate central narrowing. Ligamentum hypertrophy. This level is similar. IMPRESSION: Overall moderate spondylotic changes as described above, mildly worsened above and below the level of the L3-L4 fusion compared to 2022. No acute fracture. Dictated by: Adán Pisano M.D. on 01/27/2025 at 8:10 Approved by: Adán Pisano M.D. on 01/27/2025 at 8:16
--- NOTE | 2025-01-26 13:55 | PT.IPTN ---
Current Diagnoses Sepsis, unspecified organism (01/16/25) Physical Therapy Treatment Note M2 PT-IP Current Condition Start: 01/17/25 16:32 Freq: NEEDED Status: Active Protocol: Document 01/22/25 11:10 AB (Rec: 01/22/25 13:06 AB [id number]) Physical Therapy Current Condition Current Condition Evaluation Date 01/22/25 Treatment Diagnosis LLE cellulitis; back pain; difficulty in walking Onset Date 01/16/25 M3 PT-IP Subjective Start: 01/17/25 16:32 Freq: NEEDED Status: Active Protocol: Document 01/26/25 13:55 DLM (Rec: 01/26/25 16:24 DLM Desktop) Subjective Physical Therapy Visit Type Type Treatment Note Visit Start Time 13:18 Visit Stop Time 13:55 Notes 37 min Number of FIRE AND EXPLOSION INVESTIGATOR Visits 0 Physical Therapy Visit Comments Patient Comments He agrees to participate in Physical Therapy M4 PT-IP Mobility and Gait Start: 01/17/25 16:32 Freq: NEEDED Status: Active Protocol: Document 01/26/25 13:55 DLM (Rec: 01/26/25 16:24 DLM Desktop) PT-Bed Mobility Assessment Supine to Sit Supine to Sit Standby Assistance,Head of Bed Elevated,Bedrails Scooting Scooting to Edge of Standby Assistance Bed PT-Transfer Assessment Sit to and From Stand Sit to and from Moderate Assistance,Maximum Assistance,2 Person Stand Assistance,Use of Upper Extremities Equipment Transfer Assistive Gait Belt,Front Wheeled Walker Device Transfers Transfer Destination Chair Transfer Technique Stand Step Pivot Transfer Ability Level of Assist Moderate Assistance,Maximum Assistance,2 Person Assistance,Use of Upper Extremities Comments Mobility Comments He reports he can not feel his feet. He is max assist to don his shoes before mobility with pt sitting edge of bed. Treatment was coordinated with nursing to manage his need for 2 person assist and his fall risk. Pt stood edge of bed with FWW, left knee fully extended and right knee partially flexed. He was able to take steps to get to the chair. He continues to demonstrate decreased coordination of his LE's when taking steps with his feet kicking each other and the chair intermittently. Less knee buckling today compared to prior treatments. Gait Assessment Comments Gait Comments not safe to progress to gait with functional knee instability in standing PT-Balance Assessment Sitting Balance and Reactions Static Sitting Good Balance Ability Dynamic Sitting Good Balance Ability Standing Balance and Reactions Static Standing Poor Balance Ability Dynamic Standing Poor Balance Ability Device Used FWW M5 PT-IP Objective Assessments Start: 01/17/25 16:32 Freq: NEEDED Status: Active Protocol: Document 01/24/25 14:00 DLM (Rec: 01/24/25 14:46 DLM Desktop) Orientation Orientation/Cognition Level of Alertness Alert Orientation Name,Age,Birthday,Month,Date,Year,Day of Week,Place, Situation Language Function Hard of Hearing Ability Safety Awareness Decreased Safety Awareness Memory Description Short Term Impaired Comments he presents with decreased safety awareness, decreased awareness of his new deficits in LE's with activity Gross Range of Motion Upper Extremity ROM Impairments new onset of shoulder pain since he had a fall at hospital with staff, he reports reaching left UE back to catch himself Lower Extremity ROM Assessment Within Functional Limits Strength Lower Extremity Strength Assessment Bilaterally Impaired Hip right flex 2+/5, left 4/5 Knee right ext 3+/5, left 4/5 Coordination Assessment Gross Coordination Gross Coordination Impaired Assessment Foot Tapping Test Severe Impairment Coordination ataxic LE's Comments Sensation Assessment Sensation Gross Sensation Right LE Impaired,Left LE Impaired Proprioception ( Impaired Position) Comments Sensation Comments edema left LE decreased sensation bilateral distal LE's Muscle Tone Muscle Tone WNL No Comments Muscle Tone Comments hypotonic LE's with right worse than left M6 PT-IP Treatment Start: 01/17/25 16:32 Freq: NEEDED Status: Active Protocol: Document 01/26/25 13:55 DLM (Rec: 01/26/25 16:24 DLM Desktop) Physical Therapy Treatment Exercises Exercises Ankle Pumps,Seated Knee Flexion/Extension,Shoulder Flexion Education Education Provided Safety Other Treatments Other Treatment other exercises: Performed seated hip flexion, all exercises x 10 reps each extremity M7 PT-IP Assessment and Plan Start: 01/17/25 16:32 Freq: NEEDED Status: Active Protocol: Document 01/26/25 13:55 DLM (Rec: 01/26/25 16:24 DLM Desktop) PT Summary Assessment and Plan Summary Impairments Pain,ROM,Strength,Balance,Coordination,Sensation,Tone, Cognition,Bed Mobility,Transfers,Gait,Activity Tolerance Progress Towards Slow Progress due to Medical Issues,Slow Progress due Goals to Activity Tolerance Assessment Summary Jaime is alert and resting in bed this visit. Treatment was coordinated with nursing staff for safe care. He was able to stand with the FWW and two person assist and progress to transfer to the recliner. Exercises were completed in the recliner. He reports ongoing left shoulder pain with increased weakness. Crepitus noted in left shoulder intermittently with active movements over-head. Pt can reach left hand over -head with elbow flexed. He continues to have a very high fall risk with functional LE weakness and decreased knee stability in standing. Noted left knee a little better than right today. Continue to recommend SNF rehab at discharge. He is not safe to discharge home alone. Goals Bed Mobility Goal Independent Transfer Goal Independent,Front Wheeled Walker Gait Goal Independent,Front Wheel Walker Gait Distance 100 Days to Meet Goals 10 Frequency of Treatment Frequency Of Once a Day Treatment Treatment Plan Physical Therapy Bed Mobility Training,Transfer Training,Gait Training, Treatment Plan Therapeutic Exercise,Balance Retraining,Discharge Planning,Hot or Cold Pack,Neuromuscular Re-ed, Coordination Retraining,Manual Therapy Precautions Other Precautions high fall risk cellulitis left distal LE back pain Weight Bearing Status Weight Bearing Weight Bear as Tolerated Status Recommendations To Nursing Amount of Assist 2 Person Assist,Mechanical Lift Needed Discharge Recommendations PT Discharge SNF Rehab Recommendations Transportation Needs Wheelchair/Cabulance at Discharge - PT assist 2
[2025-01-26 20:00] VITALS: BP 125/69; PULSE 101; RESP 20; TEMP 36.1; O2SAT 96
[2025-01-26 20:37] VITALS: BP 125/69; PULSE 101
[2025-01-26] MEDS: DOXYCYCLINE HYCLATE 100 MG TABLET PO (20:37)
[2025-01-26] MEDS: CYCLOBENZAPRINE 10 MG TABLET PO (20:37)
[2025-01-26] MEDS: ATORVASTATIN 20 MG TABLET 5 MG PO (20:37)
[2025-01-27 04:00] VITALS: BP 142/89; PULSE 88; RESP 18; O2SAT 95
[2025-01-27 05:12] LABS: Hematocrit 34.6 % (41-53); Hemoglobin 12.0 g/dL (13.5-17.5); Mean Corpuscular HGB Conc 34.6 % (30-36); Mean Corpuscular Hemoglobin 35.3 PG (26-34); Mean Corpuscular Volume 101.9 fL (80-100); Platelet Count 258 X10^3/uL (150-400)
[2025-01-27 05:24] LABS: Blood Urea Nitrogen 20 mg/dL (9-20); Calcium 9.4 mg/dL (8.4-10.2); Carbon Dioxide 27 mmol/L (22-32); Chloride 100 mmol/L (98-107); Estimated Glomerular Filt Rate > 60 mL/min (>60); Glucose 104 mg/dL (70-99); HEMOLYSIS < 15 (0-50); Potassium 3.8 mmol/L (3.4-5.1); Sodium 134 mmol/L (137-145)
--- NOTE | 2025-01-27 07:41 | P.PN_ITS ---
Subjective Subjective Date Patient Seen: 01/27/25 Interval history: He says that he is unable to feel his legs, at other times he says the bottom of his feet, when he tries to stand. The right side is worse than the left. The pinkness of the skin is improving. The MRI scan shows no significant change in his lumbar spine degenerative disc disease and spinal stenosis. Working with him continues to be very challenging for the physical and occupational therapist. Exam Vital Signs (past 8 hours): - 01/27/25 04:00 Pulse Rate 88 Respiratory Rate 18 Blood Pressure 142/89 H Pulse Oximetry 95 Oxygen Delivery Method Room Air Oxygen Flow Rate 0 Narrative Exam Narrative: Heart is regular rate and rhythm without murmur Lungs are clear to auscultation bilaterally Extremities have no ankle edema The pinkness of the left negron is much improved. Alert and oriented x3. No apparent distress. He is moving both legs more during this current visit than before. Objective Labs 01/27/25 05:00 01/27/25 05:00 Labs: Laboratory Results - last 24 hr 01/27/25 05:00 WBC 5.4 RBC 3.40 L Hgb 12.0 L Hct 34.6 L MCV 101.9 H MCH 35.3 H MCHC 34.6 RDW 15.5 H Plt Count 258 Sodium 134 L Potassium 3.8 Chloride 100 Carbon Dioxide 27 BUN 20 Creatinine 0.90 Estimated GFR > 60 BUN/Creatinine Ratio 22.2 H Glucose 104 H Calcium 9.4 PFSH Medical History History of colon cancer BACILIO treated with BiPAP Surgical History 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 Left leg cellulitis, improving. 2. Acute atraumatic rhabdomyolysis, ground level fall. Resolved. 3. WALLACE, resolved. 4. SVT and demand ischemia, improved. - initial troponin 0.6 improved to 0.5 on repeat - ECHO without WMA. 5. BACILIO, stable. - APAP at night. 6. Hypokalemia/Hyponatremia, improved. 7. HTN, stable. - resumed Chlorthalidone, Losartan and Amlodipine 8. Acute on chronic lower back pain, new and improved. Xray on 01/23 without compression fractures. Likely related to the bed and chair. Has been using morphine IV as it works better for him than Dilaudid and oral pain medication. Encourage movement and physical therapy. Lumbar spine MRI shows no significant new lesions or severe worsening of his previously known degenerative disc disease and spinal stenosis. 9. 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 10. Shoulder Strain. H/O rotator cuff injuries with severely restricted ROM at baseline. 11. Charcot arthropathy of the midfoot. Abnormal 2nd Lisfranc joint space articulation on xray. Consider ortho consultation. Plan: -changed from IV antibiotics to oral doxycycline on 01/26. -arterial ultrasound of left leg without any evidence of peripheral vascular disease. -left leg CT negative, left foot xray negative for Osteomyelitis but read as C harcot arthropathy of the midfoot. Abnormal 2nd Lisfranc joint space articulation. -Left leg venous doppler negative for DVT on 01/23. -PT following -resumed chlorthalidone, losartan and amlodipine -resumed finasteride and tamsulosin -he is medically clear for transition to shelter facility on January 28. We will continue oral antibiotics for another 5 days at the time of discharge. He is currently pending authorization for [facility] [place] [facility]. Time-Based Coding :: [TOTAL MINUTES] spent with patient and on the chart (including review of chart, obtaining history, exam, reviewing outside data, placing orders, documenting exam and treatment plan, and counseling patient) on [DATE]. Quality VTE Deep Vein Thrombosis/Pulmonary Embolism Present on Admission: No
[2025-01-27 08:00] VITALS: BP 122/74; PULSE 90; RESP 20; TEMP 36.1; O2SAT 99
[2025-01-27] MEDS: HYDROMORPHONE 2 MG TABLET 4 MG PO (09:15)
[2025-01-27] MEDS: ASPIRIN EC 81 MG TABLET PO ×2 (09:16→20:11)
[2025-01-27] MEDS: AMLODIPINE 5 MG TABLET 2.5 MG PO (09:16)
[2025-01-27] MEDS: ENOXAPARIN 40 MG/0.4 ML SYRINGE SUBCUT (09:17)
[2025-01-27] MEDS: SODIUM CHLORIDE 0.9% FLUSH 10 ML IV ×2 (09:17→20:19)
[2025-01-27] MEDS: DOXYCYCLINE HYCLATE 100 MG TABLET PO ×2 (09:17→20:11)
[2025-01-27] MEDS: FINASTERIDE 5 MG TABLET PO (09:17)
[2025-01-27] MEDS: TAMSULOSIN 0.4 MG CAPSULE PO (09:17)
[2025-01-27] MEDS: LOSARTAN 50 MG TABLET PO ×2 (09:17→20:11)
[2025-01-27] MEDS: CHLORTHALIDONE 25 MG TABLET PO (09:18)
[2025-01-27] MEDS: LIDOCAINE 5% PATCH 1 EACH TOP (09:22)
--- NOTE | 2025-01-27 10:36 | PT-IP ANOTE ---
Lumbar MRI ordered and results reviewed in setting of LE weakness, buckling and decreased mobility. Results revealed: IMPRESSION: Overall moderate spondylotic changes as described above, mildly worsened above and below the level of the L3-L4 fusion compared to 2022. No acute fracture. Will con't PT efforts.
--- NOTE | 2025-01-27 14:55 | PT.IPTN ---
Current Diagnoses Sepsis, unspecified organism (01/16/25) Physical Therapy Treatment Note M2 PT-IP Current Condition Start: 01/17/25 16:32 Freq: NEEDED Status: Active Protocol: Document 01/22/25 11:10 AB (Rec: 01/22/25 13:06 AB [id number]) Physical Therapy Current Condition Current Condition Evaluation Date 01/22/25 Treatment Diagnosis LLE cellulitis; back pain; difficulty in walking Onset Date 01/16/25 M3 PT-IP Subjective Start: 01/17/25 16:32 Freq: NEEDED Status: Active Protocol: Document 01/27/25 14:23 MB (Rec: 01/27/25 14:55 MB Desktop) Subjective Physical Therapy Visit Type Type Treatment Note Visit Start Time 14:23 Visit Stop Time 14:43 Number of JEWELRY SALES ASSOCIATE Visits 0 Physical Therapy Visit Comments Patient Comments Pt is agreeable to PT. M4 PT-IP Mobility and Gait Start: 01/17/25 16:32 Freq: NEEDED Status: Active Protocol: Document 01/27/25 14:23 MB (Rec: 01/27/25 14:55 MB Desktop) PT-Transfer Assessment Sit to and From Stand Sit to and from Contact Guard Assistance,2 Person Assistance,Use of Stand Upper Extremities Equipment Transfer Assistive Gait Belt,Front Wheeled Walker Device Comments Mobility Comments STS from chair to walker 5 reps x2 with rest break in between and pt has some impulsivitiy, likely [place], tends to hold onto walker with sitting and cues to reach back for the chair. Once a second person nearby, marches in standing with heavy UE support on walker and pt presents with severe peripheral weakness in right greater than left knee and ankle with functional foot drop and severely decreased proprioception awareness with placing foot back on the floor. 2 person assistance, min to mod for this activity d/t LE peripheral weakness. Gait Assessment Comments Gait Comments Gait deferred to profound peripheral weakness in B knees and ankles, worse on the right PT-Balance Assessment Sitting Balance and Reactions Static Sitting Good Balance Ability Dynamic Sitting Good Balance Ability Standing Balance and Reactions Static Standing Poor Balance Ability Dynamic Standing Poor Balance Ability Device Used FWW M5 PT-IP Objective Assessments Start: 01/17/25 16:32 Freq: NEEDED Status: Active Protocol: Document 01/24/25 14:00 DLM (Rec: 01/24/25 14:46 DLM Desktop) Orientation Orientation/Cognition Level of Alertness Alert Orientation Name,Age,Birthday,Month,Date,Year,Day of Week,Place, Situation Language Function Hard of Hearing Ability Safety Awareness Decreased Safety Awareness Memory Description Short Term Impaired Comments he presents with decreased safety awareness, decreased awareness of his new deficits in LE's with activity Gross Range of Motion Upper Extremity ROM Impairments new onset of shoulder pain since he had a fall at hospital with staff, he reports reaching left UE back to catch himself Lower Extremity ROM Assessment Within Functional Limits Strength Lower Extremity Strength Assessment Bilaterally Impaired Hip right flex 2+/5, left 4/5 Knee right ext 3+/5, left 4/5 Coordination Assessment Gross Coordination Gross Coordination Impaired Assessment Foot Tapping Test Severe Impairment Coordination ataxic LE's Comments Sensation Assessment Sensation Gross Sensation Right LE Impaired,Left LE Impaired Proprioception ( Impaired Position) Comments Sensation Comments edema left LE decreased sensation bilateral distal LE's Muscle Tone Muscle Tone WNL No Comments Muscle Tone Comments hypotonic LE's with right worse than left M6 PT-IP Treatment Start: 01/17/25 16:32 Freq: NEEDED Status: Active Protocol: Document 01/27/25 14:23 MB (Rec: 01/27/25 14:55 MB Desktop) Physical Therapy Treatment Exercises Exercises Seated Knee Flexion/Extension Education Education Provided Safety Other Treatments Other Treatment With right LAQ, pt is unable to reach full extension Performed and appears to have changes at his right knee and he reports damage after old quad surgery M7 PT-IP Assessment and Plan Start: 01/17/25 16:32 Freq: NEEDED Status: Active Protocol: Document 01/27/25 14:23 MB (Rec: 01/27/25 14:55 MB Desktop) PT Summary Assessment and Plan Potential Rehabilitation Fair Potential Status of Condition Evolving at Evaluation Summary Impairments Pain,ROM,Strength,Balance,Coordination,Sensation,Bed Mobility,Transfers,Gait,Activity Tolerance Progress Towards Slow Progress due to Activity Tolerance Goals Assessment Summary Lumbar MRI does not show acute changes. Pt does well with STS reps. Once attempted marching in standing, he presents with profound peripheral weakness in B knees and ankles, worse on the right with little proprioceptive awareness with foot placement on the floor. Pt reports history of neuropathy. Profound LE weakness makes gait unsafe this date. Goals Bed Mobility Goal Independent Transfer Goal Contact Guard Assistance,Front Wheeled Walker,Four Wheeled Walker,Slide Board Gait Goal Contact Guard Assistance,Front Wheel Walker,Four Wheel Walker Gait Distance 25 Other Goals Updated goals to reflect peripheral weakness and to allow progression of I with deferring ADs. Days to Meet Goals 10 Frequency of Treatment Frequency Of Once a Day Treatment Treatment Plan Physical Therapy Bed Mobility Training,Transfer Training,Gait Training, Treatment Plan Therapeutic Exercise,Balance Retraining,Discharge Planning,Hot or Cold Pack,Neuromuscular Re-ed, Coordination Retraining,Manual Therapy Precautions Other Precautions B severe peripheral weakness in legs, worse on the right, fall risk Weight Bearing Status Weight Bearing Weight Bear as Tolerated Status Recommendations To Nursing Amount of Assist 2 Person Assist,Mechanical Lift Needed Discharge Recommendations PT Discharge SNF Rehab Recommendations Transportation Needs Wheelchair/Cabulance at Discharge - PT assist 2
[2025-01-27 15:00] VITALS: BP 111/65; PULSE 101; RESP 24; TEMP 36.1; O2SAT 98
[2025-01-27 20:11] VITALS: BP 135/82; PULSE 90
[2025-01-27] MEDS: ATORVASTATIN 20 MG TABLET 5 MG PO (20:11)
[2025-01-27] MEDS: REMOVE LIDOCAINE PATCH 1 EACH TOP (20:14)
[2025-01-27 20:28] VITALS: BP 135/82; PULSE 90; RESP 18; TEMP 36.1; O2SAT 97
[2025-01-28 04:00] VITALS: BP 146/82; PULSE 93; RESP 18; O2SAT 96
--- NOTE | 2025-01-28 07:58 | PM.PN.1 ---
Subjective Subjective Date Patient Seen: 01/28/25 Interval history: The blood pressure is 146/82. There are no new labs to review today. He is worried about his cat at home, Aly, who is a diabetic and needs him to dose his medication. We are pending approval by his insurance for transfer to [facility] for rehab. He remains unable to stand up and walk due to severe peripheral neuropathy. Exam Vital Signs (past 8 hours): - 01/28/25 04:00 Pulse Rate 93 H Respiratory Rate 18 Blood Pressure 146/82 H Pulse Oximetry 96 Oxygen Delivery Method Room Air Oxygen Flow Rate 0 Narrative Exam Narrative: Alert and oriented x3. No apparent distress. He is moving around much more and seems to be in much less pain but is still unable to stand and walk with therapy. Heart is regular rate and rhythm without murmur Lungs are clear to auscultation bilaterally Extremities have no ankle edema. 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 Left leg cellulitis, improving. 2. Acute atraumatic rhabdomyolysis, ground level fall. Resolved. 3. WALLACE, resolved. 4. SVT and demand ischemia, resolved - initial troponin 0.6 improved to 0.5 on repeat - ECHO without WMA. 5. BACILIO, stable. - APAP at night. 6. Hypokalemia/Hyponatremia, improved. 7. HTN, stable. - resumed Chlorthalidone, Losartan and Amlodipine 8. Acute on chronic lower back pain, new and improved. Xray on 01/23 without compression fractures. Likely related to the bed and chair. Has been using morphine IV as it works better for him than Dilaudid and oral pain medication. Encourage movement and physical therapy. Lumbar spine MRI shows no significant new lesions or severe worsening of his previously known degenerative disc disease and spinal stenosis. 9. 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 10. Shoulder Strain. H/O rotator cuff injuries with severely restricted ROM at baseline. 11. Charcot arthropathy of the midfoot. Abnormal 2nd Lisfranc joint space articulation on xray. Consider ortho consultation. 12. Severe peripheral neuropathy. This has been the most persistent limitation in his rehabilitation so far. Plan: -changed from IV antibiotics to oral doxycycline on 01/26. -arterial ultrasound of left leg without any evidence of peripheral vascular disease. -left leg CT negative, left foot xray negative for Osteomyelitis but read as Charcot arthropathy of the midfoot. Abnormal 2nd Lisfranc joint space articulation. -Left leg venous doppler negative for DVT on 01/23. -PT following -resumed chlorthalidone, losartan and amlodipine -resumed finasteride and tamsulosin -he is medically clear for transition to retirement facility. We will continue oral antibiotics for another 2 days at the time of discharge. Time-Based Coding :: [TOTAL MINUTES] spent with patient and on the chart (including review of chart, obtaining history, exam, reviewing outside data, placing orders, documenting exam and treatment plan, and counseling patient) on [DATE]. Quality VTE Deep Vein Thrombosis/Pulmonary Embolism Present on Admission: No
[2025-01-28 08:00] VITALS: BP 128/78; PULSE 93; RESP 18; TEMP 36.1; O2SAT 95
[2025-01-28] MEDS: ASPIRIN EC 81 MG TABLET PO ×2 (08:49→21:30)
[2025-01-28] MEDS: ENOXAPARIN 40 MG/0.4 ML SYRINGE SUBCUT (08:49)
[2025-01-28] MEDS: CHLORTHALIDONE 25 MG TABLET PO (08:49)
[2025-01-28] MEDS: AMLODIPINE 5 MG TABLET 2.5 MG PO (08:49)
[2025-01-28] MEDS: DOXYCYCLINE HYCLATE 100 MG TABLET PO ×2 (08:49→21:29)
[2025-01-28 08:50] VITALS: BP 128/78
[2025-01-28] MEDS: FINASTERIDE 5 MG TABLET PO (08:50)
[2025-01-28] MEDS: TAMSULOSIN 0.4 MG CAPSULE PO (08:50)
[2025-01-28] MEDS: LOSARTAN 50 MG TABLET PO ×2 (08:50→21:29)
[2025-01-28] MEDS: SODIUM CHLORIDE 0.9% FLUSH 10 ML IV ×2 (08:50→23:31)
[2025-01-28] MEDS: HYDROMORPHONE 2 MG TABLET 4 MG PO (11:05)
--- NOTE | 2025-01-28 11:23 | CM.DPC ---
Addendum entered by LISSY Baxter 01/28/25 15:28: ADD: Met bedside with pt and explained role again and discussed that anticipates that pt will be medically stable to d/c to lower level of care by tomorrow 01/29. Pt very thankful to being close to discharge but remains hopeful to discharge home at d/c. States his neighbor friend can transport him home and he already has lift chair, w/c and FWW, and stationary exercise bike at home. SW discussed that currently he requires about 2PA with PT/OT and recommendation is SNF and that [facility] has submitted for insurance auth but waiting for determination on SNF auth. Pt confirms he would be willing to go to [facility] if insurance approves coverage but hopeful for home and seems to have limited insight into his current assist level needs. Plan: SW to follow in AM for discharge orders and to follow up with [facility] on SNF auth vs home with HH. [facility] already has initial referral as well. BF Original Note: DCP SNF Cont: Per PT, pt remains 2PA and unable to ambulate at this time and recommending SNF still. Per MD, pt likely stable for d/c to SNF once auth obtained as pt not safe for d/c home. ISSA contacted Lisette at [facility] and she confirms no auth obtained yet today but she will call and follow up with insurance. LISSY Baxter
--- NOTE | 2025-01-28 13:58 | PT.IPTN ---
Current Diagnoses Sepsis, unspecified organism (01/16/25) Physical Therapy Treatment Note M2 PT-IP Current Condition Start: 01/17/25 16:32 Freq: NEEDED Status: Active Protocol: Document 01/22/25 11:10 AB (Rec: 01/22/25 13:06 AB [id number]) Physical Therapy Current Condition Current Condition Evaluation Date 01/22/25 Treatment Diagnosis LLE cellulitis; back pain; difficulty in walking Onset Date 01/16/25 M3 PT-IP Subjective Start: 01/17/25 16:32 Freq: NEEDED Status: Active Protocol: Document 01/28/25 13:35 MB (Rec: 01/28/25 13:57 MB Desktop) Subjective Physical Therapy Visit Type Type Treatment Note Visit Start Time 13:35 Visit Stop Time 13:45 Number of PROFESSOR OF SOCIAL WORK Visits 0 Physical Therapy Visit Comments Patient Comments Pt is agreeable to PT. M4 PT-IP Mobility and Gait Start: 01/17/25 16:32 Freq: NEEDED Status: Active Protocol: Document 01/28/25 13:35 MB (Rec: 01/28/25 13:57 MB Desktop) PT-Transfer Assessment Sit to and From Stand Sit to and from Contact Guard Assistance,2 Person Assistance,Use of Stand Upper Extremities Equipment Transfer Assistive Gait Belt,Front Wheeled Walker Device Gait Assessment Gait Gait Assistance Contact Guard Assist,2 Person Assist Required: Distance (Feet) 10 Assistive Devices Assistive Device Gait Belt,Front Wheeled Walker Gait Deviations General Gait Pattern Decreased Stride Length,Decreased Feet Clearance,Flexed Trunk,Step-to Gait,Wide Based Gait Factors Limiting Gait Function Factors Limiting Decreased Activity Tolerance,Decreased Sensation, Gait Function Decreased Strength,Incoordination,Poor Balance,Poor Safety Awareness Comments Gait Comments 2 person assistance for gait given right greater than left LE buckling with stepping for forward and backwards gait x10'. Tried a third 5' gait forward and pt with more buckling. OT pulls chair behind pt and PT also assists with the chair to keep it near him. Pt reports he has knee braces at home that he can wear when his right greater than left knee vincent. Apparently, this has not come up with therapists before . PT-Balance Assessment Sitting Balance and Reactions Static Sitting Good Balance Ability Dynamic Sitting Good Balance Ability Standing Balance and Reactions Static Standing Poor Balance Ability Dynamic Standing Poor Balance Ability Device Used FWW M5 PT-IP Objective Assessments Start: 01/17/25 16:32 Freq: NEEDED Status: Active Protocol: Document 01/24/25 14:00 DLM (Rec: 01/24/25 14:46 DLM Desktop) Orientation Orientation/Cognition Level of Alertness Alert Orientation Name,Age,Birthday,Month,Date,Year,Day of Week,Place, Situation Language Function Hard of Hearing Ability Safety Awareness Decreased Safety Awareness Memory Description Short Term Impaired Comments he presents with decreased safety awareness, decreased awareness of his new deficits in LE's with activity Gross Range of Motion Upper Extremity ROM Impairments new onset of shoulder pain since he had a fall at hospital with staff, he reports reaching left UE back to catch himself Lower Extremity ROM Assessment Within Functional Limits Strength Lower Extremity Strength Assessment Bilaterally Impaired Hip right flex 2+/5, left 4/5 Knee right ext 3+/5, left 4/5 Coordination Assessment Gross Coordination Gross Coordination Impaired Assessment Foot Tapping Test Severe Impairment Coordination ataxic LE's Comments Sensation Assessment Sensation Gross Sensation Right LE Impaired,Left LE Impaired Proprioception ( Impaired Position) Comments Sensation Comments edema left LE decreased sensation bilateral distal LE's Muscle Tone Muscle Tone WNL No Comments Muscle Tone Comments hypotonic LE's with right worse than left M6 PT-IP Treatment Start: 01/17/25 16:32 Freq: NEEDED Status: Active Protocol: Document 01/28/25 13:35 MB (Rec: 01/28/25 13:57 MB Desktop) Physical Therapy Treatment Education Education Provided Safety M7 PT-IP Assessment and Plan Start: 01/17/25 16:32 Freq: NEEDED Status: Active Protocol: Document 01/28/25 13:35 MB (Rec: 01/28/25 13:57 MB Desktop) PT Summary Assessment and Plan Potential Rehabilitation Fair Potential Status of Condition Evolving at Evaluation Summary Impairments Pain,ROM,Strength,Balance,Coordination,Sensation,Bed Mobility,Transfers,Gait,Activity Tolerance Progress Towards Slow Progress due to Activity Tolerance Goals Assessment Summary 2 person assistance today for safety and to pull chair behind for short gait with walker in the room. Pt with right greater than left knee buckling and functional foot drop with gait. Today, he states he has knee braces that he can wear at home when his knees give way . Con't to recommend SNF at d/c. Goals Bed Mobility Goal Independent Transfer Goal Contact Guard Assistance,Front Wheeled Walker,Four Wheeled Walker,Slide Board Gait Goal Contact Guard Assistance,Front Wheel Walker,Four Wheel Walker Gait Distance 25 Other Goals Updated goals to reflect peripheral weakness and to allow progression of I with deferring ADs. Days to Meet Goals 10 Frequency of Treatment Frequency Of Once a Day Treatment Treatment Plan Physical Therapy Bed Mobility Training,Transfer Training,Gait Training, Treatment Plan Therapeutic Exercise,Balance Retraining,Discharge Planning,Hot or Cold Pack,Neuromuscular Re-ed, Coordination Retraining,Manual Therapy Precautions Other Precautions B severe peripheral weakness in legs, worse on the right, fall risk Weight Bearing Status Weight Bearing Weight Bear as Tolerated Status Recommendations To Nursing Amount of Assist 2 Person Assist,Mechanical Lift Needed Discharge Recommendations PT Discharge SNF Rehab Recommendations Transportation Needs Wheelchair/Cabulance at Discharge - PT assist 2
--- NOTE | 2025-01-28 14:09 | OT.IP.TRT ---
Current Diagnoses Sepsis, unspecified organism (01/16/25) Occupational Therapy Treatment Note M2 OT-IP Current Condition Start: 01/17/25 10:23 Freq: Status: Active Protocol: Document 01/17/25 10:24 [facility] (Rec: 01/17/25 10:54 [facility] Desktop) Occupational Therapy Current Condition Current Condition Evaluation Date 01/17/25 Treatment Diagnosis Sepsis, acute traumatic rhabodo due to fall Diagnosis Onset Date 01/16/25 M3 OT- IP Subjective and Pain Start: 01/17/25 10:23 Freq: Status: Active Protocol: Document 01/28/25 13:56 [facility] (Rec: 01/28/25 14:09 [facility] Desktop) OT- Subjective Occupational Therapy Visit Type Type Treatment Note Visit Start Time 13:19 Visit Stop Time 13:45 Occupational Therapy Visit Comments Patient Comments Pt complaining on the recliner poking him and requested a waffle cushion for pt from the nurse. Patient/Caregiver TO get better. Goals OT Pain Assessment Pain When Pain Assessed During Mobility Pain Present Pain Present Pain Reported M4 OT- IP ADL's Start: 01/17/25 10:23 Freq: Status: Active Protocol: Document 01/25/25 14:48 [facility] (Rec: 01/25/25 15:09 [facility] Desktop) OT [id number] General Evaluation Self-Feeding Ability Independent OT ADL-Grooming General Evaluation Grooming Ability Standby Assistance Comments OT Grooming Comments Pt brushed his hair while seated in recliner on set up. OT ADL-Oral Care General Eval Oral Care Ability Standby Assistance Comments Oral Care Comments Pt performed oral hygiene while seated in recliner. OT presented pt with supplies and he was able to perform all other aspects of this task. OT ADL-Dressing Comments OT Dressing Comments Pt required assist to fasten his brief while supine in bed. Pt required total A to don socks. Pt did not want to wear his shoes today because they are too heavy OT ADL-Toileting General Evaluation Toileting Ability Standby Assistance Comments OT Toileting not observed Comments OT ADL-Bathing Comments OT Bathing Comments not observed M5 OT- IP IADL's Start: 01/17/25 10:23 Freq: Status: Active Protocol: Document 01/17/25 10:24 [facility] (Rec: 01/17/25 10:54 [facility] Desktop) OT-Instrumental Activities of Daily Living Home Safety Awareness Awareness of Need Good Awareness for Assistance at Home Ability to Problem Able to Problem Solve Solve Emergency Situations Medication Management Medication Pt uses a pill organizer. Management Comments Money Management Money Management Pt does his own. Comments Meal Preparation Meal Preparation Pt may benefit from assist. Comments Software Applications Architect Software Applications Architect Pt may benefit from assist. Comments M6 OT- IP Functional Cognition Start: 01/17/25 10:23 Freq: Status: Active Protocol: Document 01/28/25 13:56 [facility] (Rec: 01/28/25 14:09 [facility] Desktop) Cognitive Factors Limiting Selfcare Function Cognitive Ability Level of Alertness Alert Cognitive Comments Cognitive Assessment Pt able to follow commands and scored 135 seconds on Comments [place] Making B which is less than 20% for his age group which implies severe deficits for speed of processing, task switching, mental flexibility, executive functioning, and visual attention. Pt well aware that would not be driving at this time. M7 OT- IP Mobility and Balance Start: 01/17/25 10:23 Freq: Status: Active Protocol: Document 01/28/25 13:56 [facility] (Rec: 01/28/25 14:09 [facility] Desktop) OT-Transfer Assessment Sit to and From Stand Sit to and from Contact Guard Assistance,1 Person Assistance Stand Transfers Transfer Ability Contact Guard Assistance,2 Person Assistance Comments Mobility Comments Pt able to come to stand with CGA from the recliner and heavy use of his hands on the armrest of the recliner. Pt able to take a few steps with the FWW and close chair follow. Second time up on his legs, RLE getting shaky and needing. cues to sit down. Pt states walks 300ft to his mailbox prior. OT- Balance Assessment Sitting Balance and Reactions Static Sitting Normal Balance Ability Dynamic Sitting Good Balance Ability Standing Balance and Reactions Static Standing Poor Balance Ability Dynamic Standing Poor Balance Ability Comments Other Balance Tests/ Able to encourage pt to do BLE exercises with use of Deviations/Treatment strap to help strengthen his legs in preps for ADL and : IADL needs. Pt states at home prior has hinged knee braces for his knees which he uses when his knee get bad at times. M8 OT- IP Objective Assessments Start: 01/17/25 10:23 Freq: Status: Active Protocol: Document 01/17/25 10:24 [facility] (Rec: 01/17/25 10:54 [facility] Desktop) OT Gross Range of Motion Upper Extremity Range of Motion Assessment Bilaterally Impaired OT Strength Upper Extremity Strength Assessment Bilaterally Impaired Comments Strength Comments BUE shoulder 3-/5 , elbow to distal 5/5 Pt has history of rotator cuff injuries. Per pt states right one was fixed but did not heal properly and still has issues with the left one. M9 OT- IP Assessment and Plan Start: 01/17/25 10:23 Freq: Status: Active Protocol: Document 01/28/25 13:56 [facility] (Rec: 01/28/25 14:09 [facility] Desktop) OT Summary Assessment and Plan Potential Rehabilitation Good Potential Analytic Complexity Moderate at Evaluation Summary OT Impairments Pain,Range of Motion,Strength,Balance,Functional Mobility,Grooming,Dressing,Toileting,Bathing,Toilet Transfers Progress Towards Progressing Toward Goals Goals Assessment Summary Pt able to walk with FWW and CGA x2 for several feet today. Pt will benefit from skilled rehab to improve overall safety and independence with ADL and mobility needs. Goals Self-Feeding Goal Independent Grooming Goal Independent Dressing Goal Independent Toileting Goal Independent Bathing Goal Independent Toilet Transfer Goal Independent Shower Transfer Goal Independent Days to Meet Goals 26 Frequency of Treatment Other frequency 5x/week Treatment Plan OT Treatment Plan ADL Training,Functional Mobility,Patient/Family Education,Discharge Planning Other Treatment Standing ADL at the sink with recliner behind him for Recommendations and safety. Next Treatment Focus Discharge Recommendations OT Discharge SNF Rehab Recommendations Transportation Needs Wheelchair/Cabulance at Discharge
[2025-01-28 16:00] VITALS: BP 132/76; PULSE 93; RESP 18; TEMP 36.9; O2SAT 96
[2025-01-28] MEDS: CYCLOBENZAPRINE 10 MG TABLET PO (16:14)
[2025-01-28] MEDS: ACETAMINOPHEN 325 MG TABLET 1000 MG PO (16:14)
[2025-01-28 21:29] VITALS: BP 132/76; PULSE 93
[2025-01-28] MEDS: ATORVASTATIN 20 MG TABLET 5 MG PO (21:30)
[2025-01-28] MEDS: REMOVE LIDOCAINE PATCH 1 EACH TOP (21:35)
[2025-01-29] VITALS: BP 134/79; PULSE 95; RESP 20; TEMP 36.1; O2SAT 95
--- NOTE | 2025-01-29 07:57 | PC.NURSE ---
NOC Shift Note- Patient had assisted fall to floor this morning at 0635. Patient called for assistance to [facility] to have BM. Patient did not wait for 2nd staff member to help with transfer. Patient able to get up with walker and do half a pivot. At half a pivot patient started to pull down brief. Patient unable to fully pivot before legs giving out. Patient slowly lowered knees to floor. Arm on bed and knees on floor. No injuries noted. No complaints of pain or discomfort. Veronica lift used to get patiuent back to bed. Reminded patient to wait for proper assistance and to go slow and not gant himself. Message sent to hospitalist.
[2025-01-29 08:00] VITALS: BP 105/73; PULSE 98; RESP 20; TEMP 36.4; O2SAT 98
--- NOTE | 2025-01-29 08:06 | PM.PN.1 ---
Subjective Subjective Date Patient Seen: 01/29/25 Exam Vital Signs (past 8 hours): Oxygen Delivery Method Room Air Oxygen Flow Rate 0 Objective Labs 01/27/25 05:00 01/27/25 05:00 [facility] Medical History History of colon cancer BACILIO treated with BiPAP Surgical History 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 Left leg cellulitis, improving. 2. Acute atraumatic rhabdomyolysis, ground level fall. Resolved. 3. WALLACE, resolved. 4. SVT and demand ischemia, resolved - initial troponin 0.6 improved to 0.5 on repeat - ECHO without WMA. 5. BACILIO, stable. - APAP at night. 6. Hypokalemia/Hyponatremia, improved. 7. HTN, stable. - resumed Chlorthalidone, Losartan and Amlodipine 8. Acute on chronic lower back pain, new and improved. Xray on 01/23 without compression fractures. Likely related to the bed and chair. Has been using morphine IV as it works better for him than Dilaudid and oral pain medication. Encourage movement and physical therapy. Lumbar spine MRI shows no significant new lesions or severe worsening of his previously known degenerative disc disease and spinal stenosis. 9. 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 10. Shoulder Strain. H/O rotator cuff injuries with severely restricted ROM at baseline. 11. Charcot arthropathy of the midfoot. Abnormal 2nd Lisfranc joint space articulation on xray. Consider ortho consultation. 12. Severe peripheral neuropathy. This has been the most persistent limitation in his rehabilitation so far. Plan: -changed from IV antibiotics to oral doxycycline on 01/26. -arterial ultrasound of left leg without any evidence of peripheral vascular disease. -left leg CT negative, left foot xray negative for Osteomyelitis but read as Charcot arthropathy of the midfoot. Abnormal 2nd Lisfranc joint space articulation. -Left leg venous doppler negative for DVT on 01/23. -PT following -resumed chlorthalidone, losartan and amlodipine -resumed finasteride and tamsulosin -he is medically clear for transition to nursing home facility. We will continue oral antibiotics for another 2 days at the time of discharge. Time-Based Coding :: [TOTAL MINUTES] spent with patient and on the chart (including review of chart, obtaining history, exam, reviewing outside data, placing orders, documenting exam and treatment plan, and counseling patient) on [DATE]. Quality VTE Deep Vein Thrombosis/Pulmonary Embolism Present on Admission: No
[2025-01-29] MEDS: TAMSULOSIN 0.4 MG CAPSULE PO (09:37)
[2025-01-29] MEDS: DOXYCYCLINE HYCLATE 100 MG TABLET PO (09:37)
[2025-01-29] MEDS: ASPIRIN EC 81 MG TABLET PO (09:37)
[2025-01-29] MEDS: ENOXAPARIN 40 MG/0.4 ML SYRINGE SUBCUT (09:37)
[2025-01-29] MEDS: FINASTERIDE 5 MG TABLET PO (09:37)
[2025-01-29] MEDS: SODIUM CHLORIDE 0.9% FLUSH 10 ML IV (09:38)
[2025-01-29] MEDS: CHLORTHALIDONE 25 MG TABLET PO (09:52)
--- NOTE | 2025-01-29 14:02 | PC.NURSE ---
Dr. Chahal made aware of Pt's BP 105/73 this am, how he would like to give meds, he is on several antihypertensives, and pt had had a fall early this morning.
--- NOTE | 2025-01-29 14:46 | PM.DS.1 ---
History of Present Illness History of Present Illness Date Patient Seen: 01/29/25 Chief complaint: SOB, SVT Narrative: 74 M with PMH of BACILIO, HTN, gout, HLD, prior colon cancer who presents with weakness after a fall. He fell yesterday and was too weak to get up for about 12 hours. He made one last attempt to get up and was able to reach his phone. His story around his fall is quite vague, and unable to further elicidate much history. He states he has been short of breath for months now, with worsening weakness and chronic L knee pain which is slightly worse in the past week. I was able to see he was seen and treated for a left foot cellulitis at the [facility] ER approximately a month ago with doxy and cephalexin. Labs with markedly elevated CK at 9385, Troponin 0.6 downtrended to 0.5. Was also in SVT and shocked. Initial EKG showed SVT, he was cardioverted, with repeat EKG after cardioversion showing sinus rhythm without evidence for acute ischemia. Initial Cr 1.4 improved with fluids along with elevated bili, ast, alt. Imaging was negative for occult fractures as a result of his fall. DVT of LLE was ordered by me per call coverage note previously and was negative. There is no evidence of PE on CTA and bedside US showed no gross abnormalities in wall motion though was limited due to his body habitus. Pro BNP was elevated at 2170. He was admitted for further management of acute rhabdomyolysis, possible sepsis, and further cardiac evaluation. Discharge Providers Provider Date of admission: 01/16/25 15:02 Discharge Date: 01/29/25 Primary care physician: Dilshad Barton PA-C Consults: 01/16/25 17:04 Consult to Occupational Therapy Evaluate & Treat Comment: Physician Instructions: Evaluate and treat Consult to Physical Therapy Evaluate & Treat Comment: Physician Instructions: Evaluate and Treat 01/18/25 15:29 Consult to Home Health Routine Comment: Reason For Exam: Home health services at discharge 01/21/25 10:39 Consult to Physical Therapy Evaluate & Treat Comment: Physician Instructions: Evaluate and Treat Discharge provider: Sravan Chahal MD Summary Hospital Course Hospital Course: 1. Left leg cellulitis. Resolved. 2. Acute atraumatic rhabdomyolysis, ground level fall. Resolved. 3. WALLACE, resolved. 4. SVT and demand ischemia, resolved - initial troponin 0.6 improved to 0.5 on repeat - ECHO without WMA. 5. BACILIO, stable. - APAP at night. 6. Hypokalemia/Hyponatremia, improved. 7. HTN, stable. - resumed Chlorthalidone, Losartan and Amlodipine 8. Acute on chronic lower back pain, new and improved. Xray on 01/23 without compression fractures. Likely related to the bed and chair. Has been using morphine IV as it works better for him than Dilaudid and oral pain medication. Encourage movement and physical therapy. Lumbar spine MRI shows no significant new lesions or severe worsening of his previously known degenerative disc disease and spinal stenosis. 9. 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 10. Shoulder Strain. H/O rotator cuff injuries with severely restricted ROM at baseline. 11. Charcot arthropathy of the midfoot. Abnormal 2nd Lisfranc joint space articulation on xray. Consider ortho consultation. 12. Severe peripheral neuropathy. This has been the most persistent limitation in his rehabilitation so far. Plan: -changed from IV antibiotics to oral doxycycline on 01/26. -arterial ultrasound of left leg without any evidence of peripheral vascular disease. -left leg CT negative, left foot xray negative for Osteomyelitis but read as Charcot arthropathy of the midfoot. Abnormal 2nd Lisfranc joint space articulation. -Left leg venous doppler negative for DVT on 01/23. -PT following -resumed chlorthalidone, losartan and amlodipine -resumed finasteride and tamsulosin -he is medically clear for transition to longterm facility. We will continue oral antibiotics for another 2 days at the time of discharge. He presented with severe left lower extremity cellulitis that took many days to resolve. Eventually he was changed to oral antibiotics and is completing the course now. He was quite debilitated by his chronic lumbar spinal problems in addition to severe peripheral neuropathy. He will need longterm facility to rehabilitate to his semi-independent living baseline. His impulsivity and limited insight into his physical debility have led to some near-misses. He will need close supervision for the time being. Status at Discharge Cognitive/behavioral status at discharge: at baseline, oriented Functional status at discharge: bed bound Overall status at discharge: patient is not back to baseline Exam Vital Signs (past 8 hours): - 01/29/25 08:00 Temperature 97.6 F Pulse Rate 98 H Respiratory Rate 20 Blood Pressure 105/73 Pulse Oximetry 98 Oxygen Flow Rate 0 Oxygen Delivery Method Room Air Oxygen Flow Rate 0 Narrative Exam Narrative: He is alert and oriented x3. No apparent distress. Heart is regular rate and rhythm without murmur Lungs are clear to auscultation bilaterally Extremities have no ankle edema Objective Labs 01/27/25 05:00 01/27/25 05:00 [facility] Medical History History of colon cancer BACILIO treated with BiPAP Surgical History 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) H/O colectomy History of spinal fusion S/P epidural steroid injection Hx of laminectomy (2018) Social History household members: none Smoking Status: Former smoker alcohol intake: former Discharge Plan Discharge Plan Patient Disposition: [facility] Transfer to: [facility] Other facility: Follow up with Facility medical records supervisor soon Discharge orders & Medications Prescriptions: New cyclobenzaprine 10 mg Tablet 10 mg PO Q8HR PRN (Reason: Spasms) Qty: 10 0RF acetaminophen 325 mg Tablet 1,000 mg PO Q6H PRN (Reason: Fever/Mild Pain (1-3)) Qty: 30 0RF polyethylene glycol 3350 17 gram Powder In Packet 17 gm PO DAILY Qty: 30 0RF lidocaine 5 % Adhesive Patch,Medicated 1 patch topical BEDTIME Qty: 30 0RF doxycycline hyclate 100 mg Tablet 100 mg PO BID Qty: 4 0RF oxycodone 5 mg Tablet 5 mg PO Q4HR PRN (Reason: Pain, Moderate (4-6)) Qty: 15 0RF Continued chlorthalidone 25 MG tablet 25 mg PO [facility] Qty: 0 finasteride 5 MG tablet 5 mg PO DAILY Qty: 0 allopurinol 100 mg Tablet 400 mg PO DAILY amlodipine 10 mg Tablet 2.5 mg PO DAILY rosuvastatin 5 mg Tablet 2.5 mg PO DAILY losartan 50 mg Tablet 50 mg PO BID docusate sodium 100 mg capsule 250 mg PO BID PRN (Reason: Constipation from narcotic pain meds) coenzyme Q10 [CoQ-10] 100 mg Capsule 200 mg PO DAILY jftakbes-[id number]-[id number] ac [id number] mg Tablet 2 tab PO DAILY hydrocodone-acetaminophen 5-325 mg tablet 1 tab PO Q6H PRN (Reason: pain) Qty: 10 0RF methocarbamol 500 mg Tablet 1,000 mg PO BID tamsulosin 0.4 mg Capsule 0.4 mg PO DAILY gabapentin 300 mg Capsule 600 mg PO BID aspirin 81 mg tablet,delayed release (DR/EC) 81 mg PO BID Qty: 60 0RF solifenacin 10 mg Tablet 10 mg PO DAILY Qty: 30 0RF Discontinued potassium chloride 20 mEq Tablet Extended Release 20 meq PO DAILY ketorolac 10 mg tablet 10 mg PO Q6H PRN (Reason: pain) Qty: 14 0RF oxycodone 5 mg tablet 5 mg PO Q4H PRN (Reason: pain) Qty: 40 0RF Rx Instructions: postop exempt Follow up/Referrals: Dilshad Barton PA-C [Primary Care Provider, Medical] Diet/Activity/Treatments Diet: Regular Liquid consistency: Normal/Thin Food texture: Regular Special Rehabilitation Services Rehab type: Physical therapy, Occupational therapy and Speech therapy Visit Report/Discharge Packet Stand Alone Forms: Patient Portal/API Discharge Data Primary Care Provider: Dilshad Barton Quality VTE Deep Vein Thrombosis/Pulmonary Embolism Present on Admission: No
--- NOTE | 2025-01-29 14:59 | CM.DPNOTE ---
DCP note KETTLE COORDINATOR heard from assembly mechanic waiting on INS auth/wanted to confirm if pt is dc today to [facility]. KETTLE COORDINATOR reviewed chart (DCP Kira in meeting this afternoon). From Lisette at [facility], got auth, can accept today, transport on way arrival around 3:30-3:45pm. KETTLE COORDINATOR updated assembly mechanic/provider/gave Rn report number. KETTLE COORDINATOR updated pt in room. agreeable to plan. KETTLE COORDINATOR emailed signed med list/scripts/PASRR/dc summary to Lisette from [facility]. placed signed meds/scripts/PASRR in red folder. updated RN. P: dc today to [facility] in [place], transport 3:30pm. CM team will continue to follow as needed LISSY Koch
== END 2025-01-29 15:40 | DRG 603 ==
LOC: ED 09:42 → AC 15:04 → ICU 01-23 13:34 → AC 01-24 22:39
PROVIDERS: Family Medicine; Hospitalist; Admitting Provider Internal Medicine; Emergency Provider Student in an Organized Health Care Education/Training Program; PCP Physician Assistant; Referring Provider Student in an Organized Health Care Education/Training Program; Visit Provider Internal Medicine
DX: L03.116 Cellulitis of left lower limb (principal); N17.9 Acute kidney failure, unspecified; M62.82 Rhabdomyolysis; I47.10 Supraventricular tachycardia, unspecified; I24.89 Other forms of acute ischemic heart disease; E87.1 Hypo-osmolality and hyponatremia; G47.33 Obstructive sleep apnea (adult) (pediatric); E87.6 Hypokalemia; I10 Essential (primary) hypertension; E66.812 Obesity, class 2; G89.29 Other chronic pain; M54.50 Low back pain, unspecified; S46.912A Strain of unspecified muscle, fascia and tendon at shoulder and upper arm level, left arm, initial encounter; X58.XXXA Exposure to other specified factors, initial encounter; M14.672 Charcot's joint, left ankle and foot; K59.00 Constipation, unspecified; G62.9 Polyneuropathy, unspecified; M10.9 Gout, unspecified; E78.5 Hyperlipidemia, unspecified; Z68.39 Body mass index [BMI] 39.0-39.9, adult; Z87.891 Personal history of nicotine dependence; Z98.1 Arthrodesis status
CPT/HCPCS: 0241U; 36415; 70450; 71045; 71275; 72100; 72125; 72148; 73070; 73560; 73590; 73620; 73700; 74174; 80048; 80053; 80202; 81001; 82550; 83036; 83605; 83735; 83880; 84443; 84484; 85025; 85027; 85379; 87040; 87797; 92960; 93005; 93010; 93306; 93925; 93971; 94660; 96361; 96365; 96367; 96375; 97110; 97116; 97129; 97130; 97162; 97163; 97166; 97530; 97535; 99285; 99291; J0690; J0696; J1171; J1200; J1650; J1938; J2270; J2919; J3010; J3475; Q9967

== ENCOUNTER → 2025-02-24 09:23 | Outpatient (CLI) | payer OTHER, SELFPAY ==
[2025-01-16 17:02] VITALS: BMI 38.9
--- NOTE | 2025-02-24 09:25 | DI.MRI.S_ITS ---
PROCEDURE: MR SHOULDER RT WO CON INDICATIONS: ROTATOR CUFF INJURY TECHNIQUE: Noncontrast oblique coronal T2 fast spin echo with fat saturation, oblique sagittal T1 spin echo and T2 fast spin echo with fat saturation, axial T1 spin echo and T2 fast spin echo with fat saturation through the shoulder. COMPARISON: None. FINDINGS: Image quality: Excellent. Rotator cuff: There is prior rotator cuff tendon repair. Full-thickness rupture involving distal supraspinatus at its insertion on humeral head is seen with up to 4.3 cm medial retraction of torn tendon fibers to the level of glenoid. Low to moderate grade articular surface partial-thickness tear involving distal infraspinatus at its insertion on the humeral head is seen extending to musculotendinous junction. Low to moderate grade partial-thickness tear involving superior to mid fibers of distal subscapularis. Sagittal images demonstrate mild to moderate supraspinatus muscle atrophy. Bones and bursae: Postsurgical changes are noted in greater tuberosity of humeral head from prior rotator cuff tendon repair. No gross marrow edema. No acute fracture or dislocation. Moderate acromioclavicular joint osteoarthritic changes are seen with downward osteophyte formation depressing on musculotendinous junction of supraspinatus. Moderate joint effusion and subacromial subdeltoid bursal fluid, no loose bodies. Capsule and soft tissues: Subtle signal abnormality and fraying involving superior anterior glenoid labrum at 12 to 1 o'clock position is seen suggestive of subtle superior anterior glenoid labral tear. Thickened proximal long head of biceps tendon extending to its proximal insertion is seen with intrasubstance T2 hyperintense signal. IMPRESSION: 1. Postsurgical changes from prior rotator cuff tendon repair. No gross marrow edema. No acute fracture or dislocation. Moderate acromioclavicular joint osteoarthritis. Moderate joint effusion and subacromial subdeltoid bursal fluid, no loose bodies. 2. Full-thickness rupture involving distal supraspinatus at its insertion on humeral head with up to 4.3 cm medial retraction of torn tendon fibers to the level of glenoid. Low to moderate grade articular surface partial-thickness tear involving distal infraspinatus. Low to moderate grade partial-thickness tear involving superior to mid fibers of distal subscapularis. Mild to moderate supraspinatus muscle atrophy. 3. Suggestion of subtle superior anterior labral tear at 12 to 1 o'clock position. 4. Tendinosis and low-grade intrasubstance partial-thickness tear involving proximal long head of biceps. Dictated by: Theo Bermeo M.D. on 02/25/2025 at 11:13 Approved by: Theo Bermeo M.D. on 02/25/2025 at 11:18
== END ==
LOC: MRI 09:24
PROVIDERS: PCP Physician Assistant; Referring Provider Physician Assistant; Visit Provider Orthopaedic Surgery
DX: M75.121 Complete rotator cuff tear or rupture of right shoulder, not specified as traumatic (principal); M75.111 Incomplete rotator cuff tear or rupture of right shoulder, not specified as traumatic; M62.511 Muscle wasting and atrophy, not elsewhere classified, right shoulder; M25.411 Effusion, right shoulder; M19.011 Primary osteoarthritis, right shoulder; S43.431A Superior glenoid labrum lesion of right shoulder, initial encounter; S46.111A Strain of muscle, fascia and tendon of long head of biceps, right arm, initial encounter; X58.XXXA Exposure to other specified factors, initial encounter
CPT/HCPCS: 73221

== ENCOUNTER 2025-04-08 19:28 | Emergency (ER) | payer OTHER, SELFPAY ==
[2025-01-16 17:02] VITALS: BMI 38.9
[2025-04-08] VITALS (8 sets, daily range): BP systolic 107–114; BP diastolic 61–76; PULSE 94–118; RESP 10–37; TEMP 36.7; O2SAT 92–97; BMI 36.2
--- NOTE | 2025-04-08 19:32 | DI.RAD.S_ITS ---
PROCEDURE: XR CHEST 1V INDICATIONS: Chest Pain TECHNIQUE: One view of the chest was acquired. COMPARISON: [facility], CR, XR CHEST 1V, 01/16/2025, 7:49. FINDINGS: Surgical changes and devices: None. Lungs and pleura: Lungs are clear. No pleural effusions or pneumothorax. Mediastinum: Mediastinal contours appear normal. Heart size is enlarged. Bones and chest wall: No suspicious bony lesions. Overlying soft tissues appear unremarkable. IMPRESSION: No acute cardiopulmonary pathology. Dictated by: Theo Bermeo M.D. on 04/08/2025 at 20:06 Approved by: Theo Bermeo M.D. on 04/08/2025 at 20:06
--- NOTE | 2025-04-08 19:32 | EKG_ITS ---
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
[2025-04-08 20:00] LABS: INR 1.1 (0.9-1.3); Prothrombin Time 12.8 SECONDS (9.4-12.5)
[2025-04-08 20:01] LABS: Add Manual Diff / Slide Review NO; Hematocrit 35.2 % (41-53); Hemoglobin 12.2 g/dL (13.5-17.5); Lymphocytes Absolute Auto 1600 /uL (1100-4500); Mean Corpuscular HGB Conc 34.7 % (30-36); Mean Corpuscular Hemoglobin 34.6 PG (26-34); Mean Corpuscular Volume 99.6 fL (80-100); Platelet Count 172 X10^3/uL (150-400)
[2025-04-08 20:02] LABS: PTT Partial Thromboplastin Tim 26 SECONDS (25.1-36.5)
[2025-04-08 20:04] LABS: Alanine Aminotransferase 24 IU/L (<50); Albumin 3.8 g/dL (3.5-5.0); Albumin Globulin Ratio 1.1 (1.0-2.8); Alkaline Phosphatase 74 U/L (38-126); Blood Urea Nitrogen 14 mg/dL (9-20); Calcium 8.8 mg/dL (8.4-10.2); Carbon Dioxide 24 mmol/L (22-32); Chloride 102 mmol/L (98-107); Creatine Kinase 86 U/L (55-170); Estimated Glomerular Filt Rate > 60 mL/min (>60); Globulin 3.4 g/dL (1.7-4.1); Glucose 110 mg/dL (70-99); HEMOLYSIS < 15 (0-50); Lipase 45 U/L (23-300); Magnesium 1.6 mg/dL (1.6-2.3); Potassium 3.1 mmol/L (3.4-5.1); Sodium 134 mmol/L (137-145); Total Protein 7.2 g/dL (6.3-8.2)
[2025-04-08 20:16] LABS: NT-proBNP (BNP-Adult 18+) 1110 pg/mL (<125); Troponin I < 0.012 ng/mL (0.01-0.034)
--- NOTE | 2025-04-08 20:29 | ED.ARRPALP ---
HPI - Arrhythmia/Palpitations General Chief Complaint: Arrhythmia/Palpitations Stated Complaint: afib Time Seen by Provider: 04/08/25 20:29 Source: patient and EMS Mode of arrival: Ambulatory History of Present Illness HPI narrative: 74-year-old male with a past medical history of hypertension, hyperlipidemia, SVT, comes into the ED from home via EMS for evaluation of palpitations patient states that he was feeling some fatigue with chest pain when patient was evaluated by medics patient was noted to be in the 160s, patient was given 6 mg adenosine and 12 mg of diltiazem with improvement to the heart rate. Patient now completely back to baseline he is not having any symptoms at this time. Patient was given full-dose aspirin prior to arrival. He states that he feels completely better at this time. Related Data Home Medications ?Medication ?Instructions ?Recorded ?Confirmed chlorthalidone 25 mg tablet 25 mg PO [facility] ##0 04/11/17 01/22/25 finasteride 5 mg tablet 5 mg PO DAILY ##0 04/11/17 01/22/25 allopurinol 100 mg tablet 400 mg PO DAILY 01/05/22 01/22/25 amlodipine 10 mg tablet 2.5 mg PO DAILY 01/05/22 01/22/25 rosuvastatin 5 mg tablet 2.5 mg PO DAILY 01/05/22 01/22/25 docusate sodium 100 mg capsule 250 mg PO BID PRN Constipation 08/17/22 01/22/25 from narcotic pain meds losartan 50 mg tablet 50 mg PO BID 08/17/22 01/22/25 gabapentin 300 mg capsule 600 mg PO BID 02/28/23 01/22/25 methocarbamol 500 mg tablet 1,000 mg PO BID 02/28/23 01/22/25 tamsulosin 0.4 mg capsule 0.4 mg PO DAILY 02/28/23 01/22/25 coenzyme Q10 100 mg capsule 200 mg PO DAILY 08/17/23 01/22/25 (CoQ-10) smwhlbpapr-mzlbg-ttauvz-hyaluronic 2 tab PO DAILY 08/17/23 01/22/25 acid 500 mg-100 mg-500 mg-40 mg tab Previous Rx's ?Medication ?Instructions ?Recorded aspirin 81 mg tablet,delayed 81 mg PO BID #60 tabs 03/18/23 release hydrocodone 5 mg-acetaminophen 325 1 tab PO Q6H PRN pain #10 tabs 10/13/24 mg tablet acetaminophen 325 mg tablet 1,000 mg (3.0769 x 325 mg) PO Q6H 01/29/25 PRN Fever/Mild Pain (1-3) #30 tabs cyclobenzaprine 10 mg tablet 10 mg PO Q8HR PRN Spasms #10 tabs 01/29/25 doxycycline hyclate 100 mg tablet 100 mg PO BID #4 tabs 01/29/25 lidocaine 5 % topical patch 1 patch topical BEDTIME #30 ea 01/29/25 oxycodone 5 mg tablet 5 mg PO Q4HR PRN Pain, Moderate 01/29/25 (4-6) #15 tabs polyethylene glycol 3350 17 gram 17 gm PO DAILY #30 ea 01/29/25 oral powder packet solifenacin 10 mg tablet 10 mg PO DAILY #30 tabs 01/29/25 Allergies Allergy/AdvReac Type Severity Reaction Status Date / Time Iodinated Contrast Media AdvReac Mild Hives Verified 01/16/25 07:45 [facility] AdvReac Unknown Verified 01/16/25 07:45 Review of Systems Review of Systems Narrative: General: Denies fever, chills, weight loss HEENT: Denies headache, eye drainage, eye irritation, head trauma, sore throat, voice change Cardiovascular: Positive any chest pain, palpitations, tachycardia Respiratory: Denies any shortness of breath, cough, wheeze, stridor GI/: Denies any abdominal pain, nausea, vomiting, diarrhea, bright red blood per rectum, melanotic stools, urinary frequency, urinary retention, dysuria, hematuria MSK: Denies any joint pain, muscle pains, swelling Skin: Denies any rashes, lesions, discoloration Neuro: Denies any headache, lightheadedness, dizziness, fainting, weakness Psych: Denies SI/HI Patient History Medical History History of colon cancer BACILIO treated with BiPAP Surgical History 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) H/O colectomy History of spinal fusion S/P epidural steroid injection Hx of laminectomy (2017) Social History household members: none alcohol intake: former tobacco type: cigarettes alcohol intake frequency: holidays/special occasions only Exam Narrative Exam Narrative: General: Cooperative, well-developed, not in acute distress HEENT: Normocephalic, atraumatic, PERRLA, normal sclera, eyelids normal Neck: Active full range of motion, atraumatic Chest: Normal to inspection, negative crepitus, no overlying erythema ecchymosis Respiratory: Normal respiratory effort, not in acute respiratory distress, clear to auscultation bilaterally negative cough, wheeze, tachypnea, rhonchi, rales Cardiology: Regular rate rhythm negative gallop, murmur, rubs GI/: No tenderness to palpation, soft, non rigid, normal to inspection, exam deferred MSK: Full active range of motion in all 4 extremities, atraumatic, no tenderness to palpation of any bony prominences Skin: No rashes or lesions noted Neuro: Alert awake oriented x3, moves all 4 extremities spontaneously, cranial nerves intact, able to answer all questions appropriately follows commands appropriately Psych: Cooperative, negative suicidal or homicidal ideations Initial Vital Signs Initial Vital Signs: Vital Signs Pulse Rate 97 H 04/08/25 19:31 Pulse Oximetry 95 04/08/25 19:31 Course Orders Ordered: ED Orders 04/08/25 19:32 XR chest 1V Stat EKG-12 Lead Stat 04/08/25 19:45 Complete Blood Count AUTO DIFF Stat Comprehensive Metabolic Panel Stat Lipase Stat Magnesium Stat NT-proBNP (BNP-Adult 18+) Stat PTT Partial Thromboplastin Magdaleno Stat Prothrombin Time INR Stat Troponin & CK Cardiac Panel Stat Vital Signs Vital signs: Vital Signs - 8 hr 04/08/25 19:31 04/08/25 19:32 04/08/25 19:32 Temperature Pulse Rate 97 H 118 H Respiratory Rate 37 H Blood Pressure 114/76 Pulse Oximetry 95 95 Oxygen Delivery Method 04/08/25 19:35 04/08/25 19:45 04/08/25 19:45 Temperature 98.0 F Pulse Rate 107 H 97 H Respiratory Rate 16 28 H Blood Pressure 114/76 114/76 Pulse Oximetry 97 94 Oxygen Delivery Method Room Air MDM - Arrhythmia/Palpitations Lab Data 04/08/25 19:45 04/08/25 19:45 Labs: Lab Results 04/08/25 Range/Units 19:45 WBC 12.4 H (4.5-11.0) X10^3/uL RBC 3.54 L (4.5-5.9) X10^6/uL Hgb 12.2 L (13.5-17.5) g/dL Hct 35.2 L (41-53) % MCV 99.6 (80-100) fL MCH 34.6 H (26-34) PG MCHC 34.7 (30-36) % RDW 15.6 H (11.6-14.8) % Plt Count 172 (150-400) X10^3/uL Neut % (Auto) 76.0 H (50-75) % Lymph % (Auto) 13.3 L (25-40) % Elmore % (Auto) 9.0 (3-14) % Eos % (Auto) 0.4 L (2-4) % Baso % (Auto) 1.3 (0-2) % Neut # (Auto) 9400 H (4501-2151) /uL Lymph # (Auto) 1600 (2528-2002) /uL Elmore # (Auto) 1100 H (0-900) /uL Eos # (Auto) 100 (0-450) /uL Baso # (Auto) 200 H (0-100) /uL PT 12.8 H (9.4-12.5) SECONDS INR 1.1 (0.9-1.3) APTT 26 (25.1-36.5) SECONDS Sodium 134 L (137-145) mmol/L Potassium 3.1 L (3.4-5.1) mmol/L Chloride 102 (98-107) mmol/L Carbon Dioxide 24 (22-32) mmol/L BUN 14 (9-20) mg/dL Creatinine 0.85 (0.66-1.25) mg/dL Estimated GFR > 60 (>60) mL/min BUN/Creatinine Ratio 16.5 (6-22) Glucose 110 H (70-99) mg/dL Calcium 8.8 (8.4-10.2) mg/dL Magnesium 1.6 (1.6-2.3) mg/dL Total Bilirubin 1.5 H (0.2-1.3) mg/dL AST 31 (17-59) IU/L ALT 24 (<50) IU/L Alkaline Phosphatase 74 (38-126) U/L Total Creatine Kinase 86 (55-170) U/L Troponin I < 0.012 (0.01-0.034) ng/mL NT-Pro-B Natriuret Pep 1110 H (<125) pg/mL Total Protein 7.2 (6.3-8.2) g/dL Albumin 3.8 (3.5-5.0) g/dL Globulin 3.4 (1.7-4.1) g/dL Albumin/Globulin Ratio 1.1 (1.0-2.8) Lipase 45 (23-300) U/L ECG Data Interpretation: EKG interpreted ED physician sinus 96 beats per minute QTC 449, left axis deviation, no STEMI MDM Narrative Medical decision making narrative: 74-year-old male with a past medical history of SVT, hypertension, hyperlipidemia comes into the ED from home with medics for evaluation of chest pain palpitations. Patient states that he had some chest pain with palpitations fatigue states it is similar to when he was in SVT. According to medics they arrived patient was in the 160s was given 6 of adenosine and 12 of diltiazem with improvement in his symptoms and heart rate. At time of evaluation here patient completely back to baseline he is not having any chest pain palpitations states that he feels fine, states that he feels like he wants to go home. EKG sinus at 96 nonischemic. Troponin negative BNP only slightly elevated at 1110, however chest x-ray without any pulmonary abnormalities no pleural effusion not requiring any supplemental oxygen, patient did have slight leukocytosis of 12.4 under most likely reactive secondary to his symptoms. 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 Disease processes change and evolve, if your symptoms worsen or if you develop any new symptoms that are concerning to you please return for evaluation. Your evaluation today does not show any evidence of any life-threatening/serious illnesses requiring admission to the hospital or surgery. Please follow-up with your doctor for re-evaluation in approximately 1 day. Seek immediate medical attention for any worrisome symptoms. *If you do not have a primary care provider please contact the [facility] Resource line at [phone]. They will ask some questions about your medical history and help get you set up with a doctor in the community. Prescriptions: No Action chlorthalidone 25 MG tablet 25 mg PO [facility] Qty: 0 finasteride 5 MG tablet 5 mg PO DAILY Qty: 0 allopurinol 100 mg Tablet 400 mg PO DAILY amlodipine 10 mg Tablet 2.5 mg PO DAILY rosuvastatin 5 mg Tablet 2.5 mg PO DAILY losartan 50 mg Tablet 50 mg PO BID docusate sodium 100 mg capsule 250 mg PO BID PRN (Reason: Constipation from narcotic pain meds) coenzyme Q10 [CoQ-10] 100 mg Capsule 200 mg PO DAILY nhxuiijh-vrtr-hnpzsl-hyalur ac [id number] mg Tablet 2 tab PO DAILY hydrocodone-acetaminophen 5-325 mg tablet 1 tab PO Q6H PRN (Reason: pain) Qty: 10 0RF methocarbamol 500 mg Tablet 1,000 mg PO BID tamsulosin 0.4 mg Capsule 0.4 mg PO DAILY gabapentin 300 mg Capsule 600 mg PO BID aspirin 81 mg tablet,delayed release (DR/EC) 81 mg PO BID Qty: 60 0RF cyclobenzaprine 10 mg Tablet 10 mg PO Q8HR PRN (Reason: Spasms) Qty: 10 0RF acetaminophen 325 mg Tablet 1,000 mg PO Q6H PRN (Reason: Fever/Mild Pain (1-3)) Qty: 30 0RF polyethylene glycol 3350 17 gram Powder In Packet 17 gm PO DAILY Qty: 30 0RF lidocaine 5 % Adhesive Patch,Medicated 1 patch topical BEDTIME Qty: 30 0RF doxycycline hyclate 100 mg Tablet 100 mg PO BID Qty: 4 0RF solifenacin 10 mg Tablet 10 mg PO DAILY Qty: 30 0RF oxycodone 5 mg Tablet 5 mg PO Q4HR PRN (Reason: Pain, Moderate (4-6)) Qty: 15 0RF Referrals: Dilshad Barton PA-C [Primary Care Provider, Medical] Stand Alone Forms: Patient Portal/API
== END 2025-04-08 20:53 | disposition home or self-care (01) ==
PROVIDERS: Emergency Provider Student in an Organized Health Care Education/Training Program; PCP Physician Assistant
DX: R00.2 Palpitations (principal); R07.9 Chest pain, unspecified; I10 Essential (primary) hypertension; R53.83 Other fatigue; Z86.79 Personal history of other diseases of the circulatory system; F17.210 Nicotine dependence, cigarettes, uncomplicated
CPT/HCPCS: 36415; 71045; 80053; 82550; 83690; 83735; 83880; 84484; 85025; 85610; 85730; 93005; 93010; 99283; 99284

== ENCOUNTER 2025-04-10 11:06 | Emergency (ER) | payer OTHER, SELFPAY ==
[2025-01-16 17:02] VITALS: BMI 38.9
[2025-04-10] VITALS (8 sets, daily range): BP systolic 117–133; BP diastolic 75–85; PULSE 77–109; RESP 16–25; TEMP 36.6; O2SAT 94–99; BMI 36.2
--- NOTE | 2025-04-10 11:17 | DI.RAD.S_ITS ---
PROCEDURE: XR CHEST 1V INDICATIONS: Chest Pain TECHNIQUE: One view of the chest was acquired. COMPARISON: [facility], CR, XR CHEST 1V, 04/08/2025, 19:48. FINDINGS: Surgical changes and devices: None. Lungs and pleura: Lungs are clear. No pleural effusions or pneumothorax. Mediastinum: Mediastinal contours appear normal. Heart size is normal. Bones and chest wall: No suspicious bony lesions. Overlying soft tissues appear unremarkable. IMPRESSION: No acute cardiopulmonary abnormality is seen. Dictated by: Aris Serrato M.D. on 04/10/2025 at 11:55 Approved by: Aris Serrato M.D. on 04/10/2025 at 11:55
--- NOTE | 2025-04-10 11:19 | EKG_ITS ---
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
[2025-04-10 11:36] LABS: INR 1.1 (0.9-1.3); Prothrombin Time 12.7 SECONDS (9.4-12.5)
[2025-04-10 11:39] LABS: PTT Partial Thromboplastin Tim 26 SECONDS (25.1-36.5)
[2025-04-10 11:40] LABS: Add Manual Diff / Slide Review NO; Hematocrit 36.9 % (41-53); Hemoglobin 12.9 g/dL (13.5-17.5); Lymphocytes Absolute Auto 1100 /uL (1100-4500); Mean Corpuscular HGB Conc 34.8 % (30-36); Mean Corpuscular Hemoglobin 34.8 PG (26-34); Mean Corpuscular Volume 99.9 fL (80-100); Platelet Count 166 X10^3/uL (150-400)
[2025-04-10 11:44] LABS: Alanine Aminotransferase 26 IU/L (<50); Albumin 4.6 g/dL (3.5-5.0); Albumin Globulin Ratio 1.3 (1.0-2.8); Alkaline Phosphatase 74 U/L (38-126); Blood Urea Nitrogen 15 mg/dL (9-20); Calcium 9.1 mg/dL (8.4-10.2); Carbon Dioxide 25 mmol/L (22-32); Chloride 103 mmol/L (98-107); Creatine Kinase 71 U/L (55-170); Estimated Glomerular Filt Rate > 60 mL/min (>60); Globulin 3.5 g/dL (1.7-4.1); Glucose 101 mg/dL (70-99); HEMOLYSIS < 15 (0-50); Lipase 52 U/L (23-300); Magnesium 1.8 mg/dL (1.6-2.3); Potassium 3.3 mmol/L (3.4-5.1); Sodium 140 mmol/L (137-145); Total Protein 8.1 g/dL (6.3-8.2)
--- NOTE | 2025-04-10 11:52 | ED.CHESTPAIN ---
HPI - Chest Pain General Chief Complaint: Chest Pain Stated Complaint: Chest pain , light headedness Time Seen by Provider: 04/10/25 11:30 Source: patient Mode of arrival: Family Vehicle History of Present Illness HPI narrative: This is a 74-year-old man complaining of lightheadedness earlier today, slow heart rate on pulse oximeter and chest pain. The chest pain by his description of the intermittent and lasts for only sec at a time. Has a history of SVT hypertension hyperlipidemia was seen here a couple of days ago with lightheadedness had SVT treated with the adenosine pre-hospital. States he started a new medication for ?weight loss? about 3 weeks ago. He is not sure what it is it is a pill. He is not having shortness of breath diaphoresis nausea or vomiting he is not having fevers. At triage he had an episode of tachycardia, I was able to review a rhythm strip from that, it appears to be a regular narrow complex tachycardia consistent with SVT persistent only for a few sec. he says he took his morning medications today. Related Data Home Medications ?Medication ?Instructions ?Recorded ?Confirmed chlorthalidone 25 mg tablet 25 mg PO [facility] ##0 04/11/17 01/22/25 finasteride 5 mg tablet 5 mg PO DAILY ##0 04/11/17 01/22/25 allopurinol 100 mg tablet 400 mg PO DAILY 01/05/22 01/22/25 amlodipine 10 mg tablet 2.5 mg PO DAILY 01/05/22 01/22/25 rosuvastatin 5 mg tablet 2.5 mg PO DAILY 01/05/22 01/22/25 docusate sodium 100 mg capsule 250 mg PO BID PRN Constipation 08/17/22 01/22/25 from narcotic pain meds losartan 50 mg tablet 50 mg PO BID 08/17/22 01/22/25 gabapentin 300 mg capsule 600 mg PO BID 02/28/23 01/22/25 methocarbamol 500 mg tablet 1,000 mg PO BID 02/28/23 01/22/25 tamsulosin 0.4 mg capsule 0.4 mg PO DAILY 02/28/23 01/22/25 coenzyme Q10 100 mg capsule 200 mg PO DAILY 08/17/23 01/22/25 (CoQ-10) ccgaagnfll-hxilp-katbpw-hyaluronic 2 tab PO DAILY 08/17/23 01/22/25 acid 500 mg-100 mg-500 mg-40 mg tab naltrexone 8 mg-bupropion 90 mg 2 tab PO QAM AND QPM 04/10/25 04/10/25 tablet,extended release Previous Rx's ?Medication ?Instructions ?Recorded aspirin 81 mg tablet,delayed 81 mg PO BID #60 tabs 03/18/23 release hydrocodone 5 mg-acetaminophen 325 1 tab PO Q6H PRN pain #10 tabs 10/14/23 mg tablet acetaminophen 325 mg tablet 1,000 mg (3.0769 x 325 mg) PO Q6H 01/29/25 PRN Fever/Mild Pain (1-3) #30 tabs cyclobenzaprine 10 mg tablet 10 mg PO Q8HR PRN Spasms #10 tabs 01/29/25 doxycycline hyclate 100 mg tablet 100 mg PO BID #4 tabs 01/29/25 lidocaine 5 % topical patch 1 patch topical BEDTIME #30 ea 01/29/25 oxycodone 5 mg tablet 5 mg PO Q4HR PRN Pain, Moderate 01/29/25 (4-6) #15 tabs polyethylene glycol 3350 17 gram 17 gm PO DAILY #30 ea 01/29/25 oral powder packet solifenacin 10 mg tablet 10 mg PO DAILY #30 tabs 01/29/25 metoprolol succinate 25 mg 25 mg PO DAILY #30 tabs 04/10/25 tablet,extended release 24 hr (Toprol XL) Allergies Allergy/AdvReac Type Severity Reaction Status Date / Time Iodinated Contrast Media AdvReac Mild Hives Verified 01/16/25 07:45 semaglutide (From [facility]) AdvReac Unknown Verified 01/16/25 07:45 Patient History Medical History History of colon cancer BACILIO treated with BiPAP Surgical History 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) H/O colectomy History of spinal fusion S/P epidural steroid injection Hx of laminectomy (2018) Social History household members: none alcohol intake: former tobacco type: cigarettes alcohol intake frequency: holidays/special occasions only Exam Initial Vital Signs Initial Vital Signs: Vital Signs Temperature 98 F 04/10/25 11:18 Pulse Rate 109 H 04/10/25 11:18 Respiratory Rate 22 04/10/25 11:18 Blood Pressure 133/82 04/10/25 11:18 Pulse Oximetry 96 04/10/25 11:18 Oxygen Delivery Method Room Air 04/10/25 11:18 vital signs are reviewed Const General: cooperative and No acute distress HENMT Head: normocephalic and atraumatic Face and sinus: face symmetric Mouth: moist mucous membranes Eyes Pupils: PERRL EOM: EOM intact bilaterally Neck Neck: normal visual inspection, supple and No JVD Chest Chest: normal inspection of the chest Resp Effort & Inspection: normal respiratory effort and able to speak in complete sentences Auscultation: clear to auscultation bilaterally Cardio Rate: regular rate Rhythm: regular rhythm Heart Sounds: no murmurs Other: Normal heart rate GI Inspection: normal to inspection Palpation: soft Auscultation: normal bowel sounds Back/Spine/Pelvis Back: normal to inspection Skin General: no rashes or lesions noted and warm Neuro General: patient alert, patient oriented x3 and moves all extremities Speech: speech normal Extrem General: full ROM Psych Appearance: grossly normal Course Orders Ordered: ED Orders 04/10/25 11:17 XR chest 1V Stat EKG-12 Lead Stat 04/10/25 11:20 Complete Blood Count AUTO DIFF Stat Comprehensive Metabolic Panel Stat Lipase Stat Magnesium Stat NT-proBNP (BNP-Adult 18+) Stat PTT Partial Thromboplastin Magdal[place] Stat Prothrombin Time INR Stat Troponin & CK Cardiac Panel Stat Discontinued Medications Aspirin (Aspirin 81 Mg Chew Tab) 324 mg PO NOW ONE Stop: 04/10/25 11:18 Last Admin: 04/10/25 12:10 Dose: 324 mg Documented By: UCHE Metoprolol Tartrate (Metoprolol Ir 25 Mg Tablet) 25 mg PO NOW ONE Stop: 04/10/25 12:02 Last Admin: 04/10/25 12:10 Dose: 25 mg Documented By: UCHE Potassium Chloride (Potassium Chloride 20 Meq/15 Ml Udc) 20 meq PO NOW ONE Stop: 04/10/25 12:02 Last Admin: 04/10/25 12:11 Dose: 20 meq Documented By: XENA Consultations Consultation #1: Reviewed rhythm strip with Cardiology, Dr. Corey, agrees that this is SVT Vital Signs Vital signs: Vital Signs - 8 hr 04/10/25 11:18 04/10/25 11:22 04/10/25 11:30 Temperature 98 F Pulse Rate 109 H 99 H 97 H Respiratory Rate 22 23 25 H Blood Pressure 133/82 Pulse Oximetry 96 96 94 Oxygen Delivery Method Room Air 04/10/25 11:35 04/10/25 11:35 04/10/25 12:00 Temperature Pulse Rate 97 H Respiratory Rate 19 Blood Pressure 117/75 123/79 Pulse Oximetry 95 Oxygen Delivery Method 04/10/25 12:00 04/10/25 12:30 04/10/25 12:30 Temperature Pulse Rate 94 H 93 H Respiratory Rate 23 21 Blood Pressure 126/82 Pulse Oximetry 97 99 Oxygen Delivery Method 04/10/25 13:00 04/10/25 13:00 04/10/25 13:30 Temperature Pulse Rate 91 H Respiratory Rate 16 Blood Pressure 126/85 117/75 Pulse Oximetry 98 Oxygen Delivery Method 04/10/25 13:30 Temperature Pulse Rate 77 Respiratory Rate 22 Blood Pressure Pulse Oximetry 96 Oxygen Delivery Method MDM - Chest Pain Lab Data Lab results narrative: Labs remarkable for potassium of 3.3 04/10/25 11:20 04/10/25 11:20 Labs: Lab Results 04/10/25 Range/Units 11:20 WBC 5.7 D (4.5-11.0) X10^3/uL RBC 3.70 L (4.5-5.9) X10^6/uL Hgb 12.9 L (13.5-17.5) g/dL Hct 36.9 L (41-53) % MCV 99.9 (80-100) fL MCH 34.8 H (26-34) PG MCHC 34.8 (30-36) % RDW 15.6 H (11.6-14.8) % Plt Count 166 (150-400) X10^3/uL Neut % (Auto) 64.0 (50-75) % Lymph % (Auto) 19.8 L (25-40) % [place] % (Auto) 13.3 (3-14) % Eos % (Auto) 1.8 L (2-4) % Baso % (Auto) 1.1 (0-2) % Neut # (Auto) 3700 (0165-2140) /uL Lymph # (Auto) 1100 (6430-5517) /uL [place] # (Auto) 800 (0-900) /uL Eos # (Auto) 100 (0-450) /uL Baso # (Auto) 100 (0-100) /uL PT 12.7 H (9.4-12.5) SECONDS INR 1.1 (0.9-1.3) APTT 26 (25.1-36.5) SECONDS Sodium 140 (137-145) mmol/L Potassium 3.3 L (3.4-5.1) mmol/L Chloride 103 (98-107) mmol/L Carbon Dioxide 25 (22-32) mmol/L BUN 15 (9-20) mg/dL Creatinine 0.79 (0.66-1.25) mg/dL Estimated GFR > 60 (>60) mL/min BUN/Creatinine Ratio 19.0 (6-22) Glucose 101 H (70-99) mg/dL Calcium 9.1 (8.4-10.2) mg/dL Magnesium 1.8 (1.6-2.3) mg/dL Total Bilirubin 1.1 (0.2-1.3) mg/dL AST 33 (17-59) IU/L ALT 26 (<50) IU/L Alkaline Phosphatase 74 (38-126) U/L Total Creatine Kinase 71 (55-170) U/L Troponin I < 0.012 (0.01-0.034) ng/mL NT-Pro-B Natriuret Pep 546 H (<125) pg/mL Total Protein 8.1 (6.3-8.2) g/dL Albumin 4.6 (3.5-5.0) g/dL Globulin 3.5 (1.7-4.1) g/dL Albumin/Globulin Ratio 1.3 (1.0-2.8) Lipase 52 (23-300) U/L ECG Data Attestation: I personally reviewed and interpreted this ECG as follows: (Normal sinus rhythm at [address] segment changes left axis deviation normal intervals) MDM Narrative Medical decision making narrative: 74-year-old male complaining of palpitations and lightheadedness. Also reported some minimal chest pain/tightness. Heart score was 3. He has known SVT and was noted to have SVT briefly while triaging. Patient attributes onset of his symptoms and recent onset of SVT to a new medication, naltrexone and Wellbutrin. He plans to stop this. Additionally, I put him on a low dose of metoprolol. Does not appear to be fluid overloaded vital signs are reassuring he will follow up with Cardiology Discharge Plan Departure Patient Disposition: Home Clinical Impression: Heart palpitations, Supraventricular tachycardia Activity Restrictions/Additional Instructions: Emergency department workup today is reassuring. We noted an abnormal heart rhythm called supraventricular tachycardia. This may be related to the new medication naltrexone/bupropion. I agree with your plan to taper off of that. I discussed your case with Cardiology. They also recommend that I start a medication called metoprolol to keep your heart from going too fast. Continue your other home medications. If you are having chest pain shortness of breath or rapid heart rate or feeling faint recheck in the emergency department. Follow up soon with your primary care provider. Prescriptions: New metoprolol succinate [Toprol XL] 25 mg tablet extended release 24 hr 25 mg PO DAILY Qty: 30 0RF No Action chlorthalidone 25 MG tablet 25 mg PO [facility] Qty: 0 finasteride 5 MG tablet 5 mg PO DAILY Qty: 0 allopurinol 100 mg Tablet 400 mg PO DAILY amlodipine 10 mg Tablet 2.5 mg PO DAILY rosuvastatin 5 mg Tablet 2.5 mg PO DAILY losartan 50 mg Tablet 50 mg PO BID docusate sodium 100 mg capsule 250 mg PO BID PRN (Reason: Constipation from narcotic pain meds) coenzyme Q10 [CoQ-10] 100 mg Capsule 200 mg PO DAILY vlrjcfay-hweb-qrklih-hyalur ac [id number] mg Tablet 2 tab PO DAILY hydrocodone-acetaminophen 5-325 mg tablet 1 tab PO Q6H PRN (Reason: pain) Qty: 10 0RF naltrexone-bupropion 8-90 mg tablet extended release 2 tab PO QAM AND QPM Patient Comments: 2 tabs in morning 1 tab at night since tuesday. Third week of medication increase methocarbamol 500 mg Tablet 1,000 mg PO BID tamsulosin 0.4 mg Capsule 0.4 mg PO DAILY gabapentin 300 mg Capsule 600 mg PO BID aspirin 81 mg tablet,delayed release (DR/EC) 81 mg PO BID Qty: 60 0RF cyclobenzaprine 10 mg Tablet 10 mg PO Q8HR PRN (Reason: Spasms) Qty: 10 0RF acetaminophen 325 mg Tablet 1,000 mg PO Q6H PRN (Reason: Fever/Mild Pain (1-3)) Qty: 30 0RF polyethylene glycol 3350 17 gram Powder In Packet 17 gm PO DAILY Qty: 30 0RF lidocaine 5 % Adhesive Patch,Medicated 1 patch topical BEDTIME Qty: 30 0RF doxycycline hyclate 100 mg Tablet 100 mg PO BID Qty: 4 0RF solifenacin 10 mg Tablet 10 mg PO DAILY Qty: 30 0RF oxycodone 5 mg Tablet 5 mg PO Q4HR PRN (Reason: Pain, Moderate (4-6)) Qty: 15 0RF Referrals: Dilshad Barton PA-C [Primary Care Provider, Medical] Stand Alone Forms: Patient Portal/API
[2025-04-10 11:56] LABS: NT-proBNP (BNP-Adult 18+) 546 pg/mL (<125); Troponin I < 0.012 ng/mL (0.01-0.034)
[2025-04-10] MEDS: ASPIRIN 81 MG CHEW TAB 324 MG PO (12:10)
[2025-04-10] MEDS: METOPROLOL IR 25 MG TABLET PO (12:10)
[2025-04-10] MEDS: POTASSIUM CHLORIDE 20 MEQ/15 ML UDC PO (12:11)
--- NOTE | 2025-04-10 12:38 | PC.NURSE ---
Patient is concerned his symptoms are related to Bupropion 90mg/ Naltroxone HCL 8mg is the cause of his symptoms. He has been increasing his dose weekly over last three weeks. Tuesday started taking two tabs in morning and one tab in evening.
== END 2025-04-10 13:47 | disposition home or self-care (01) ==
PROVIDERS: Emergency Provider Emergency Medicine; PCP Physician Assistant
DX: R00.2 Palpitations (principal); I47.10 Supraventricular tachycardia, unspecified
CPT/HCPCS: 36415; 71045; 80053; 82550; 83690; 83735; 83880; 84484; 85025; 85610; 85730; 93005; 99284

== ENCOUNTER 2025-06-10 11:23 | Emergency (ER) | payer OTHER, SELFPAY ==
[2025-01-16 17:02] VITALS: BMI 38.9
[2025-06-10 12:00] VITALS: PULSE 62; RESP 17; TEMP 36.4; O2SAT 95; BMI 38.3
--- NOTE | 2025-06-10 12:05 | ED.MALEGU ---
HPI - Male Genitourinary General Chief complaint: Urogenital-Male Stated complaint: Bilateral kidney pain ,3 weeks Time Seen by Provider: 06/10/25 12:03 History of Present Illness HPI Narrative: Patient complains 3 weeks of decreased urine output with cloudy smelly urine. Has bilateral flank pain no fever chills. No nausea or vomiting. No abdominal pain. Patient does have history of BPH he states. Has appointment with his urologist within the next month. Patient has had UTIs in the past. Patient in no distress at this time. Related Data Home Medications ?Medication ?Instructions ?Recorded ?Confirmed chlorthalidone 25 mg tablet 25 mg PO [facility] ##0 04/11/17 05/09/25 finasteride 5 mg tablet 5 mg PO DAILY ##0 04/11/17 05/09/25 allopurinol 100 mg tablet 400 mg PO DAILY 01/05/22 05/09/25 amlodipine 10 mg tablet 2.5 mg PO DAILY 01/05/22 05/09/25 rosuvastatin 5 mg tablet 2.5 mg PO DAILY 01/05/22 05/09/25 docusate sodium 100 mg capsule 250 mg PO BID PRN Constipation 08/17/22 05/09/25 from narcotic pain meds losartan 50 mg tablet 50 mg PO BID 08/17/22 05/09/25 tamsulosin 0.4 mg capsule 0.4 mg PO DAILY 02/28/23 05/09/25 coenzyme Q10 100 mg capsule 200 mg PO DAILY 08/17/23 05/09/25 (CoQ-10) qqlmupkvao-jtzkx-fsgncq-hyaluronic 2 tab PO DAILY 08/17/23 05/09/25 acid 500 mg-100 mg-500 mg-40 mg tab naltrexone 8 mg-bupropion 90 mg 2 tab PO QAM AND QPM 04/10/25 05/09/25 tablet,extended release carboxymethylcellulose sodium 0.25 drp EYE-BOTH 05/09/25 05/09/25 % eye drops in a dropperette fluocinolone 0.01 % topical cream 1 applic topical BID 05/09/25 05/09/25 ketoconazole 2 %-iodoquinol 1 applic topical 05/09/25 05/09/25 %-hydrocortisone 2.5 % topical cream mirabegron 25 mg tablet,extended 25 mg PO DAILY 05/09/25 05/09/25 release 24 hr omeprazole 40 mg capsule,delayed 40 mg PO DAILY 05/09/25 05/09/25 release potassium chloride 20 mEq oral 20 meq PO DAILY 05/09/25 05/09/25 packet Previous Rx's ?Medication ?Instructions ?Recorded aspirin 81 mg tablet,delayed 81 mg PO BID #60 tabs 03/18/23 release acetaminophen 325 mg tablet 1,000 mg (3.0769 x 325 mg) PO Q6H 01/29/25 PRN Fever/Mild Pain (1-3) #30 tabs Allergies Allergy/AdvReac Type Severity Reaction Status Date / Time Iodinated Contrast Media AdvReac Mild Hives Verified 05/09/25 12:04 semaglutide (From [employer]) AdvReac Unknown Verified 05/09/25 12:04 Review of Systems Review of Systems Narrative: GENERAL: Negative chills, fatigue, malaise, fever, sweats. HEENT: Negative sinus pain, ear pain, sore throat RESPIRATORY: Negative dyspnea, cough CARDIOVASCULAR: Negative chest pain, palpitations GASTROINTESTINAL: Negative vomiting, nausea, abdominal pain positive flank pain : Negative dysuria, frequency, hematuria, positive decreased urination MUSCULOSKELETAL: Negative muscle or bony pain SKIN: Negative rash, skin lesions NEUROLOGIC: Negative weakness, numbness ROS Unobtainable: All systems reviewed & are unremarkable except as noted in HPI and below Patient History Medical History Gout Arthritis History of colon cancer BACILIO treated with BiPAP Surgical History 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 EYES: Pupils equal round ENT: Mucous membranes moist. NECK: Trachea midline. CARDIOVASCULAR: Regular rate and rhythm RESPIRATORY: Clear to auscultation. Breath sounds equal bilaterally. No wheezes, rales, or rhonchi. GASTROINTESTINAL: Abdomen soft, non-tender, no CVA tenderness no guarding or rebound. No peritoneal signs bowel sounds are present. BACK: No flank tenderness. EXTREMITIES: No gross deformities. NEURO: AOx4. Clear speech SKIN: Warm and dry PSYCH: Not anxious, is cooperative Initial Vital Signs Initial Vital Signs: Vital Signs Temperature 97.6 F 06/10/25 12:00 Pulse Rate 62 06/10/25 12:00 Respiratory Rate 17 06/10/25 12:00 Pulse Oximetry 95 06/10/25 12:00 Oxygen Delivery Method Room Air 06/10/25 12:00 Course Orders Ordered: Discontinued Medications Lidocaine HCl (Lidocaine 2% (Glydo) 6 Ml Gel) 6 ml TOP NOW ONE Stop: 06/10/25 12:39 Last Admin: 06/10/25 12:45 Dose: 6 ml Documented By: MIKAYLA Vital Signs Vital signs: Vital Signs - 8 hr 06/10/25 12:00 Temperature 97.6 F Pulse Rate 62 Respiratory Rate 17 Pulse Oximetry 95 Oxygen Delivery Method Room Air MDM - Male Genitourinary Lab Data 06/10/25 12:20 06/10/25 12:20 Labs: Lab Results 06/10/25 06/10/25 Range/Units 11:24 12:20 WBC 6.8 (4.5-11.0) X10^3/uL RBC 4.08 L (4.5-5.9) X10^6/uL Hgb 14.1 (13.5-17.5) g/dL Hct 41.2 (41-53) % MCV 100.9 H (80-100) fL MCH 34.7 H (26-34) PG MCHC 34.3 (30-36) % RDW 16.0 H (11.6-14.8) % Plt Count 218 (150-400) X10^3/uL Neut % (Auto) 51.8 (50-75) % Lymph % (Auto) 33.4 (25-40) % [place] % (Auto) 10.8 (3-14) % Eos % (Auto) 3.1 (2-4) % Baso % (Auto) 0.9 (0-2) % Neut # (Auto) 3500 (2210-2069) /uL Lymph # (Auto) 2300 (3784-9839) /uL [place] # (Auto) 700 (0-900) /uL Eos # (Auto) 200 (0-450) /uL Baso # (Auto) 100 (0-100) /uL Sodium 144 (137-145) mmol/L Potassium 3.9 (3.4-5.1) mmol/L Chloride 107 (98-107) mmol/L Carbon Dioxide 26 (22-32) mmol/L BUN 15 (9-20) mg/dL Creatinine 0.65 L (0.66-1.25) mg/dL Estimated GFR > 60 (>60) mL/min BUN/Creatinine Ratio 23.1 H (6-22) Glucose 94 (70-99) mg/dL Calcium 9.4 (8.4-10.2) mg/dL Total Bilirubin 0.6 (0.2-1.3) mg/dL AST 36 (17-59) IU/L ALT 33 (<50) IU/L Alkaline Phosphatase 94 (38-126) U/L Total Protein 8.3 H (6.3-8.2) g/dL Albumin 4.8 (3.5-5.0) g/dL Globulin 3.5 (1.7-4.1) g/dL Albumin/Globulin Ratio 1.4 (1.0-2.8) Urine Color Yellow Urine Appearance Clear Urine pH 5.5 (4.5-8.0) Ur Specific [place] 1.020 (1.000-1.035) Urine Protein Negative (Negative) Urine Glucose (UA) Negative (Negative) g/dL Urine Ketones Negative (NEGATIVE) Urine Occult Blood Negative (Negative) Urine Nitrate Negative (Negative) Urine Bilirubin Negative (NEGATIVE) Urine Urobilinogen 0.2 (0.2) E.U./dL Ur Leukocyte Esterase Negative (NEGATIVE) Urine RBC None seen (0-5/HPF) Urine WBC None seen (0-5/HPF) Ur Squamous Epith Cells None seen (0-5/HPF) Urine Bacteria None seen (None) Ur Culture Indicated? Cult not indicated Vol Urine Centrifuged 10ml (spun) Imaging Data CT scan - abdomen/pelvis: Radiologist's Impression: [address] [address] [address] Scan Report Signed Patient: Jaime Aleman MR#: [id number] : 1950 Acct:[id number] Age/Sex: 74 / M Date of Service: 06/10/25 Loc: ED Accession Number: [id number] Procedure: CT kidney ureter bladder (KUB) Ordering Provider: Vignesh Vega MD PROCEDURE: CT KIDNEY URETER BLADDER (KUB) INDICATIONS: Flank pain TECHNIQUE: CT of the abdomen and pelvis was obtained without intravenous contrast. Coronal and sagittal reformats were performed. For radiation dose reduction, the following was used: automated exposure control, adjustment of mA and/or kV according to patient size. COMPARISON: [facility], CT, CT ANGIO CHEST ABDOMEN PELVIS, 01/16/2025, 8:18. FINDINGS: Image quality: Diagnostic. Lower Chest: No significant findings. ABDOMEN: Liver: No contour-deforming mass. Gallbladder: No radiopaque gallstones or wall thickening. Biliary ducts: No biliary dilation. Pancreas: No ductal dilation. Spleen: Size is within normal limits. Adrenal Glands: No adrenal nodules. Kidneys and Ureters: Punctate nonobstructing renal calculus in the midpole right kidney. No hydronephrosis. Stomach and Bowel: Normal colonic caliber, without significant wall thickening. Bowel anastomosis of the distal sigmoid. Peritoneum: No abnormal intraperitoneal fluid. No free air. Unchanged chronic fat necrosis along the ascending colon and 2nd smaller focus near the sigmoid colon. Ventral Wall: No significant hernia. Abdominal Nodes: No retroperitoneal or mesenteric adenopathy by size criteria. Vessels: Aorta and inferior vena cava are normal in size. Severe atherosclerotic plaque, calcified. PELVIS: Pelvic Organs: Unremarkable. Bladder: Mostly decompressed. Pelvic Nodes: No enlarged lymph nodes. Miscellaneous: No inguinal hernias are seen. Bones: No aggressive osseous abnormality. Severe degenerative changes. L3-L4 fusion and laminectomy. IMPRESSION: No acute abnormality. Nonobstructing punctate right renal calculus. Dictated by: Manuel Espinal M.D. on 06/10/2025 at 13:19 Approved by: Manuel Espinal M.D. on 06/10/2025 at 13:25 MDM Narrative Medical decision making narrative: Patient complains 3 weeks of decreased urine output with cloudy smelly urine. Has bilateral flank pain no fever chills. No nausea or vomiting. No abdominal pain. Patient does have history of BPH he states. Has appointment with his urologist within the next month. Patient has had UTIs in the past. Patient in no distress at this time. MDM After history and exam, CBC CMP urinalysis CT KUB Differential considered: Includes but not limited to kidney stone UTI pyelonephritis cystitis urinary retention Medical records reviewed: No recent visit for this complaint Lab Test results independently reviewed as above. Pertinent findings: WBC 6.8 hemoglobin 14 hematocrit 41 sodium 144 potassium 3.9 BUN 15 creatinine 0.65 GFR greater than 60 urinalysis negative leukocytes negative nitrite negative WBC negative RBC Imaging studies independently reviewed: CT KUB no acute finding Consultations: None indicated this time. Re-evaluations: 2:26 p.m.. Updated patient diagnosed with likely urinary retention. He feels much better. No flank pain after Pritchard catheter. He has appointment with his urologist in town here in 3 days, . No indicated at this time. Patient already on BPH medication. Return precautions reviewed. He desires discharge home. He has done self catheterizations before and he is comfortable with home care with Pritchard catheter. Discussion: Appropriate for discharge home. Exam is reassuring. Return precautions reviewed. Patient desires discharge home. Diagnosis: Urinary retention Discharge Plan Departure Patient Disposition: Home Clinical Impression: Acute retention of urine Instructions: How to Care for Your Pritchard Catheter -- Male, DI for Urinary Retention in Men Activity Restrictions/Additional Instructions: You have developed urinary retention and Pritchard catheter has been placed. Please see your urologist this as scheduled. No new medications are indicated. Please do continue your prostate medications. Please review instructions about Pritchard catheter care. Return if worse if any questions or concerns Prescriptions: No Action chlorthalidone 25 MG tablet 25 mg PO [facility] Qty: 0 finasteride 5 MG tablet 5 mg PO DAILY Qty: 0 allopurinol 100 mg Tablet 400 mg PO DAILY amlodipine 10 mg Tablet 2.5 mg PO DAILY rosuvastatin 5 mg Tablet 2.5 mg PO DAILY losartan 50 mg Tablet 50 mg PO BID docusate sodium 100 mg capsule 250 mg PO BID PRN (Reason: Constipation from narcotic pain meds) coenzyme Q10 [CoQ-10] 100 mg Capsule 200 mg PO DAILY easklxye-oxga-rwjtfe-hyalur ac [id number] mg Tablet 2 tab PO DAILY naltrexone-bupropion 8-90 mg tablet extended release 2 tab PO QAM AND QPM Patient Comments: 2 tabs in morning 1 tab at night since tuesday. Third week of medication increase tamsulosin 0.4 mg Capsule 0.4 mg PO DAILY aspirin 81 mg tablet,delayed release (DR/EC) 81 mg PO BID Qty: 60 0RF acetaminophen 325 mg Tablet 1,000 mg PO Q6H PRN (Reason: Fever/Mild Pain (1-3)) Qty: 30 0RF carboxymethylcellulose sodium 0.25 % dropperette EYE-BOTH fluocinolone 0.01 % cream 1 applic topical BID omeprazole 40 mg capsule,delayed release(DR/EC) 40 mg PO DAILY potassium chloride 20 mEq packet 20 meq PO DAILY mirabegron 25 mg tablet extended release 24 hr 25 mg PO DAILY wjutbnbrnkus-jovtlgumng-lp 2-1-2.5 % cream topical Referrals: Dilshad Barton PA-C [Primary Care Provider, Medical] Stand Alone Forms: Patient Portal/API
[2025-06-10 12:27] LABS: Appearance Urine UA CLEAR; Bilirubin Urine UA NEGATIVE (NEGATIVE); Color Urine UA YELLOW; Glucose Urine UA NEGATIVE (Negative); Ketones Urine UA NEGATIVE (NEGATIVE); Leukocyte Esterase Urine UA NEGATIVE (NEGATIVE); Nitrite Urine UA NEGATIVE (Negative); Occult Blood Urine UA NEGATIVE (Negative); Protein Urine UA NEGATIVE (Negative); Specific Gravity Urine UA 1.020 (1.000-1.035); Urobilinogen Urine UA 0.2 E.U./dL (0.2); pH Urine UA 5.5 (4.5-8.0)
[2025-06-10 12:37] LABS: Culture Indicated Urine Cult Not Indicated
[2025-06-10 12:45] LABS: Add Manual Diff / Slide Review NO; Hematocrit 41.2 % (41-53); Hemoglobin 14.1 g/dL (13.5-17.5); Lymphocytes Absolute Auto 2300 /uL (1100-4500); Mean Corpuscular HGB Conc 34.3 % (30-36); Mean Corpuscular Hemoglobin 34.7 PG (26-34); Mean Corpuscular Volume 100.9 fL (80-100); Platelet Count 218 X10^3/uL (150-400)
[2025-06-10] MEDS: LIDOCAINE 2% (GLYDO) 6 ML GEL TOP (12:45)
[2025-06-10 13:04] LABS: Alanine Aminotransferase 33 IU/L (<50); Albumin 4.8 g/dL (3.5-5.0); Albumin Globulin Ratio 1.4 (1.0-2.8); Alkaline Phosphatase 94 U/L (38-126); Blood Urea Nitrogen 15 mg/dL (9-20); Calcium 9.4 mg/dL (8.4-10.2); Carbon Dioxide 26 mmol/L (22-32); Chloride 107 mmol/L (98-107); Estimated Glomerular Filt Rate > 60 mL/min (>60); Globulin 3.5 g/dL (1.7-4.1); Glucose 94 mg/dL (70-99); HEMOLYSIS < 15 (0-50); Potassium 3.9 mmol/L (3.4-5.1); Sodium 144 mmol/L (137-145); Total Protein 8.3 g/dL (6.3-8.2)
[2025-06-10 14:37] VITALS: BP 158/72; PULSE 68; RESP 16; O2SAT 98
== END 2025-06-10 14:35 | disposition home or self-care (01) ==
PROVIDERS: Emergency Provider Emergency Medicine; PCP Physician Assistant
DX: R33.8 Other retention of urine (principal); R10.A0 Flank pain, unspecified side
CPT/HCPCS: 51798; 74176; 80053; 81001; 85025; 99284